=== PATIENT | female | born 1945 | race Caucasian/White ===

== ENCOUNTER → 2017-06-19 14:11 | Outpatient (CLI) | payer MEDICARE, SELFPAY ==
[2017-06-19 15:05] LABS: Hematocrit 37.7 % (37-47); Hemoglobin 12.3 g/dl (12.0-15.0); Mean Corp Hgb Conc 32.6 g/gl (32-36); Mean Corpuscular Hgb 30.6 pg (27.0-32.0); Mean Corpuscular Volume 93.8 fL (81-99); Mean Platelet Vol. 10.3 fl (6.2-12.0); Platelet Count 339 K/mm3 (150-450); RBC Distribution Width CV 13.4 % (11.6-14.6); RBC Distribution Width SD 44.2 fl (35.1-43.9); Red Blood Count 4.02 M/mm3 (4.2-5.4); White Blood Count 8.3 K/mm3 (4.4-11.0)
[2017-06-19 15:10] LABS: Scan Indicated on CBC? Y/N NO
[2017-06-19 15:29] LABS: Anion Gap 10 (5-15); BUN 30 mg/dL (7-18); BUN/Creat Ratio 35.3 RATIO (10-20); Calcium,Total 9.6 mg/dL (8.5-10.1); Chloride 104 mmol/L (98-107); Creatinine, Serum 0.85 mg/dL (0.55-1.02); EST Glomerular Filtration Rate 70 mL/min (>60); Est Glom Filt Rate - Afr Amer 84 mL/min (>60); Glucose 115 mg/dL (74-106); Potassium 4.1 mmol/L (3.5-5.1); Sodium Level 142 mmol/L (136-145)
== END ==
PROVIDERS: Family Provider Family Medicine; PCP Family Medicine; Visit Provider Internal Medicine Cardiovascular Disease
DX: I49.1 Atrial premature depolarization (principal); I49.3 Ventricular premature depolarization; R53.83 Other fatigue
CPT/HCPCS: 36415; 80048; 83735; 85027

== ENCOUNTER → 2017-06-27 13:44 | Outpatient (CLI) | payer MEDICARE, SELFPAY | PROVIDERS: Visit Provider Nurse Practitioner Family | DX: R00.1 Bradycardia, unspecified (principal); R42 Dizziness and giddiness | CPT/HCPCS: 93225; 93226 ==

== ENCOUNTER 2017-07-28 16:03 | Observation (INO) | payer MEDICARE, SELFPAY ==
[2017-07-28] VITALS (9 sets, daily range): BP systolic 114–132; BP diastolic 61–96; PULSE 72–98; RESP 15–18; TEMP 36.6–37.2; O2SAT 95–98; BMI 34.7; BMI 35.0; BMI 35.1
--- NOTE | 2017-07-28 16:52 | EKG12_ITS ---
Test Reason : WEAKNESS IRR HB Blood Pressure : / mmHG Vent. Rate : 069 BPM Atrial Rate : 069 BPM P-R Int : 188 ms QRS Dur : 088 ms QT Int : 366 ms P-R-T Axes : -11 001 020 degrees QTc Int : 392 ms Normal sinus rhythm Normal ECG Confirmed by JOE VILLA, SUNITHA ([id number]), editor at large DIGNA KATE ([id number]) on 08/01/2017 1:57:36 PM Referred By: ISAIAS Confirmed By:SUNITHA DIAZ MD
--- NOTE | 2017-07-28 16:54 | RAD_ITS ---
STUDY: X-RAY CHEST REASON FOR EXAM: Female, 72 years old. Short of breath and weakness TECHNIQUE: Single AP portable view of the chest. COMPARISON: 08/15/2013. FINDINGS: The lungs are clear and expanded. There is no demonstrated pleural abnormality. Normal size heart. Normal mediastinum and roderick. Normal visualized pulmonary arteries. There is atherosclerotic tortuosity of the aortic arch and descending thoracic aorta. Probable moderate hiatal hernia. Normal visualized thoracic spine. There is degenerative osteoarthritis of the bilateral shoulders. There is no demonstrated abnormality of the visualized soft tissue structures of the upper abdomen. RAD/Chest 1 View (Portable) IMPRESSION: No acute chest disease. Electronically Signed: Edy Apodaca MD at 17:15 EDT , Service support ,
--- NOTE | 2017-07-28 16:54 | ED.VISSUMM ---
- ER Visit Summary Date of Service: 07/28/17 Chief Complaint: Generalized weakness History of Present Illness: The patient is a 72 F presenting with generalized weakness. She states this started today. She states she has felt tired. Her occupational therapist was at her house today. They noted a blood pressure 104/54 and heart rate of 58. She denies chest pain or shortness of breath. She states she did have an episode of chest pain on Monday and went to [place] [facility]. She states they wanted to admit her to the hospital and she declined admission. She has had no chest pain today. She had a spinal fusion on July 07 at [facility] in [place]. During that admission she developed A. fib and pulmonary embolus. She was discharged after 11 days. She is on Xarelto. She is currently in home rehab. She denies any back pain or incontinence. She is on tramadol. She states she has oxycodone but she is not taking this any longer. Denies fever. Denies other complaints. Physical Examination: Vitals are stable. Patient is afebrile. Alert no acute distress. HEENT exam is unremarkable. Neck is supple. Lungs are clear and equal bilaterally. Heart is regular rate and rhythm. Abdomen is soft nontender nondistended. Back: incision clean, dry and intact Extremities are unremarkable. Skin is warm and dry. No focal neurologic deficit. Remainder of exam is unremarkable. Emergency Department Course and Treatment: EKG is sinus rhythm rate of 69 with no acute ischemic changes. Chest x-ray shows no acute process. CBC normal except for hemoglobin 10.3. Chemistries show glucose 119, BUN 19. Troponin is negative. Patient was observed in the ED for several hours. She continues to feel dizzy. With attempted ambulation she has an unsteady gait and states she feels wobbly. Will discuss with the hospitalist for observation. Disposition: Observation Impression: Generalized weakness, near syncope This note was generated with [employer] dictation software. It may contain incorrect words, spelling, and punctuation that were not noted in review of the chart prior to signing ED Disposition - Plan for ED Patient: Chief Complaint: Weakness Referrals: Mo Hood [Primary Care Provider] -
--- NOTE | 2017-07-28 16:57 | ED.DCSUM_ITS ---
- ER Visit Summary Date of Service: 07/28/17 Chief Complaint: Generalized weakness History of Present Illness: The patient is a 72 F presenting with generalized weakness. She states this started today. She states she has felt tired. Her occupational therapist was at her house today. They noted a blood pressure 104/ 54 and heart rate of 58. She denies chest pain or shortness of breath. She states she did have an episode of chest pain on Monday and went to [place] [facility]. She states they wanted to admit her to the hospital and she declined admission. She has had no chest pain today. She had a spinal fusion on July 07 at [facility] in [place]. During that admission she developed A. fib and pulmonary embolus. She was discharged after 11 days. She is on Xarelto. She is currently in home rehab. She denies any back pain or incontinence. She is on tramadol. She states she has oxycodone but she is not taking this any longer. Denies fever. Denies other complaints. Physical Examination: Vitals are stable. Patient is afebrile. Alert no acute distress. HEENT exam is unremarkable. Neck is supple. Lungs are clear and equal bilaterally. Heart is regular rate and rhythm. Abdomen is soft nontender nondistended. Back: incision clean, dry and intact Extremities are unremarkable. Skin is warm and dry. No focal neurologic deficit. Remainder of exam is unremarkable. Emergency Department Course and Treatment: EKG is sinus rhythm rate of 69 with no acute ischemic changes. Chest x-ray shows no acute process. CBC normal except for hemoglobin 10.3. Chemistries show glucose 119, BUN 19. Troponin is negative. Patient was observed in the ED for several hours. She continues to feel dizzy. With attempted ambulation she has an unsteady gait and states she feels wobbly. Will discuss with the hospitalist for observation. Disposition: Observation Impression: Generalized weakness, near syncope This note was generated with [employer] dictation software. It may contain incorrect words, spelling, and punctuation that were not noted in review of the chart prior to signing ED Disposition - Plan for ED Patient: Chief Complaint: Weakness Referrals: Mo Hood [Primary Care Provider] -
[2017-07-28 17:36] LABS: Anion Gap 7 (5-15); BUN 19 mg/dL (7-18); BUN/Creat Ratio 22.3 RATIO (10-20); Calcium,Total 8.8 mg/dL (8.5-10.1); Chloride 108 mmol/L (98-107); Creatinine, Serum 0.85 mg/dL (0.55-1.02); EST Glomerular Filtration Rate 69 mL/min (>60); Est Glom Filt Rate - Afr Amer 84 mL/min (>60); Estimated Creatinine Clearance 52.25 ml/min; Glucose 119 mg/dL (74-106); Potassium 3.7 mmol/L (3.5-5.1); Sodium Level 143 mmol/L (136-145)
[2017-07-28 17:47] LABS: Absolute Lymphocyte Count 1.53 X10^3/ul (0.83-4.51); Absolute Neutrophil Count 4.8 X10^3/uL (2.0-7.7); Basophil# 0.05 X10^3/uL; Basophil% 0.7 % (0-1); Eosinophil# 0.25 X10^3/uL; Eosinophils% 3.4 % (0-5); Hematocrit 32.7 % (37-47); Hemoglobin 10.3 g/dl (12.0-15.0); Lymphocyte # 1.53 X10^3/ul (4.0); Lymphocyte % 20.9 % (19-41); Mean Corp Hgb Conc 31.5 g/gl (32-36); Mean Corpuscular Hgb 30.2 pg (27.0-32.0); Mean Corpuscular Volume 95.9 fL (81-99); Mean Platelet Vol. 10.5 fl (6.2-12.0); Monocyte# 0.68 X10^3/uL; Monocyte% 9.3 % (0-10); Neutrophil % 65.6 % (47-70); Platelet Count 427 K/mm3 (150-450); RBC Distribution Width CV 13.9 % (11.6-14.6); RBC Distribution Width SD 45.7 fl (35.1-43.9); Red Blood Count 3.41 M/mm3 (4.2-5.4); White Blood Count 7.3 K/mm3 (4.4-11.0)
[2017-07-28 17:50] LABS: POSITIVE COUNT NO; POSITIVE DIFFERENTIAL NO; POSITIVE MORPHOLOGY NO
[2017-07-28 20:05] LABS: Allen Test POS; Base Excess 3 mmol/L (-2 to +2); Bicarbonate 26.1 mmol/L (22-26); Blood Gas Specimen Type ART; O2 Delivery Device Room Air; PO2 69 mmHG (75-100); SITE L Radial; SO2 95 % (95-99); Total Carbon Dioxide 27 mmol/L; pCO2 34.8 mmHg (35-45); pH 7.48 (7.35-7.45)
--- NOTE | 2017-07-28 21:11 | PCM.HP.STD ---
Problem List (1) Lumbar back pain Status: Chronic (2) Pulmonary embolism Status: Chronic Qualifiers: Pulmonary embolism type: other Chronicity: chronic (3) COPD (chronic obstructive pulmonary disease) Status: Chronic Qualifiers: COPD type: unspecified COPD Qualified Code(s): J44.9 - Chronic obstructive pulmonary disease, unspecified (4) Hypertension Status: Chronic Qualifiers: Hypertension type: essential hypertension Qualified Code(s): I10 - Essential (primary) hypertension (5) Hyperlipidemia Status: Chronic Qualifiers: Hyperlipidemia type: mixed hyperlipidemia Qualified Code(s): E78.2 - Mixed hyperlipidemia (6) Diabetes mellitus type II, controlled Status: Chronic Qualifiers: Diabetes mellitus oil heaterman insulin use: without nursing home use Diabetes mellitus complication status: with unspecified complications Qualified Code(s): E11.8 - Type 2 diabetes mellitus with unspecified complications (7) Obesity (BMI 30.0-34.9) Status: Chronic History of Present Illness Date of Admission: 07/28/17 Chief Complaint: Near Syncopal Events, Chest pain The patient is a 72 y/o F w/ PMHx: Lumbar back pain s/p recent intervention, Chronic COPD, HTN, HLD, Diabetes mellitus type II, History of recent post-operative PE, Hypothyroidism, PAF who presents to the [facility] ED on 07/28/17 with history of nearly ~ 1 year of intermittent episodes of near syncope sensation with increased generalized weakness, dizziness, lightheadedness without dyspnea or chest pain during these episodes which have been becoming more frequent with evaluation per her [facility] [employer], Dr. Gómez w/ concern for symptomatic bradycardia with HM performed which did not correlate and HR lowest 48. She had recent spinal fusion at [place] in June and secondary to Afib RVR episode with PE development was transferred to [facility]. She has now been on anticoagulation x ~14 days. She was discharged from [facility] on 07/18/17. Following discharge she had episode this past Monday of sharp L sided underneath her L breast chest pain, radiating toward her back with recurrence of her near syncopal symptoms. She was evaluated at [place] ED at that time and declined admission. She presents today with recurrent near syncopal symptoms. In the ED work-up including AF, HR 70s, BP 114/69, RR 17, 98% on RA, CBC w/ WBC 7.3, Hgb 10.2, Plts 427 without shift, BMP w/ Chl 108, BUN/Cr 19/0.85, glucose 119, trop < 0.02, EKG w/ SR without acute evidence of ischemia. Past Medical History Past Medical History (Chronic Problems): Chronic Problems (Last Updated 06/21/17 @ 11:29 by Jessica Armstrong) Lumbar back pain (Chronic) Obesity (BMI 30.0-34.9) (Chronic) Pulmonary embolism (Chronic) COPD (chronic obstructive pulmonary disease) (Chronic) Hypertension (Chronic) Hyperlipidemia (Chronic) Diabetes mellitus type II, controlled (Chronic) History of pulmonary embolism (Chronic) Allergies nitrofurantoin macrocrystalline [From Macrodantin] Allergy (Verified 07/28/17 16:44) Hives rosuvastatin [From Crestor] Adverse Reaction (Severe, Verified 07/28/17 16:44) Muscle weakness colesevelam [From WelChol] Adverse Reaction (Intermediate, Verified 07/28/17 16:44) nausea nitrofurantoin [From Furadantin] Adverse Reaction (Intermediate, Verified 07/28/17 16:44) Unknown Home Medications: Ambulatory Orders Medication Instructions Recorded Albuterol Sulfate [Proventil Hfa] 2 puff IH Q6H PRN PRN 06/18/13 Fluticasone 110 Mcg [Flovent (SP)] 2 puff INHALATION BID 06/18/13 Levothyroxine [Synthroid] 125 mcg PO DAILY 06/18/13 Tramadol HCl [Tramadol HCl] 50 mg PO Q6H PRN PRN 06/18/13 aspirin 325 mg tablet 325 mg PO DAILY tab 06/19/17 glimepiride 2 mg tablet 2 mg PO QAM 06/19/17 omeprazole 20 mg capsule,delayed 20 mg PO QDAY 06/19/17 release oxybutynin chloride ER 10 mg 10 mg PO QDAY 06/19/17 tablet,extended release 24 hr sitagliptin 100 mg tablet 100 mg PO QDAY 06/19/17 Acetaminophen [Acetaminophen 8 1,300 mg PO Q6H PRN PRN 07/28/17 Hour] Calcium Carbonate [Calcium] 600 mg PO DAILY 07/28/17 Cholecalciferol (VIT D3) [Vitamin 5,000 unit PO DAILY 07/28/17 D] Dicyclomine HCl 20 mg PO DAILY PRN PRN 07/28/17 Lisinopril/Hydrochlorothiazide 1 each PO DAILY 07/28/17 [Zestoretic 20-12.5 mg Tablet] Oxycodone [Oxyir] 5 mg PO Q6H PRN PRN 07/28/17 Rivaroxaban [Xarelto] 15 mg PO BID 07/28/17 Sennosides/Docusate Sodium 1 each PO DAILY 07/28/17 [Sennosides-Docusate Sodium Tab] Surgical History: - - Cholecystectomy, Lumbar Back Fusion Psychiatric History: No pertinent psych hx INSIGHTS STRATEGIST History: No pertinent INSIGHTS STRATEGIST history Lives: Spouse/ Significant Other Smoking Status: Never smoker Tobacco Use: Non-smoker Alcohol: None Drugs: None - *Family History Maternal History Items: Diabetes, - - Mother w/ history of DM, AAA. Paternal History Items: - - Father w/ history of CAD, DM, MA/CAD, Dementia. Sibling History Items: - - Brother w/ history of multiple sclerosis. Review of Systems Constitutional: Reports: Malaise, Weakness, Fatigue. Denies: Chills, Fever, Weight Change HEENT: Denies: Head Aches, Sinus Congestion, Sinus Drainage Cardiovascular: Reports: Chest Pain, Syncope. Denies: Palpitations Respiratory: Denies: Cough, Shortness of breath at rest, Shortness of breath upon exertion, Sputum production Gastrointestinal: Denies: Abdominal Pain, Nausea, Vomiting Genitourinary: Denies: Dysuria Musculoskeletal: Reports: Back Pain. Denies: Joint Pain, Joint Tenderness Skin: Denies: Rash, Wounds Neurological: Denies: Numbness, Tingling, Focal weakness Psychiatric: Denies: Anxiety, Depression, Homicidal Ideations, Suicidal Ideations Hematologic/ Lymphatic: Reports: Anemia. Denies: Easy Bruising, Easy Bleeding VTE Information - Inpt Only VTE Present on Admission: No VTE Mechan Device Prophylaxis: SCD's VTE Pharm Prophylaxis ordered?: No Reason prophylaxis not ordered:: Treatment Not Indicated Subjective: Seated upright in the ED bed, NAD, fatigued appearing. Objective: Physical Examination: General: awake, alert, oriented x 3 and cooperative, seated upright in the ED bed in no apparent distress. Skin: normal color, turgor, no icterus, cyanosis, healing lumbar midline incision, expected TTP. HEENT: AT/NC, EOMI, PERRLA, mildly dry MM, no carotid bruits or JVD noted. Lungs: Diminished BS bases, mild effort, no rales, ronchi or wheezing. Heart: Regular rate and rhythm; no gallop, rub audible. Abdomen: soft, obese, NTTP, ND, normal BS, no HSM. Extremities: no cyanosis, clubbing, or edema. Neurological: patient awake, alert, oriented x 3; cognitive function intact; pupils equally reactive to light and accomodation; cranial nerves II-XII grossly normal, moving all 4 extremities, no focal deficits, strength moderately to severely globally decreased secondary to acute presentation and recent operative intervention. Psychiatric: affect appears fatigued, flat, no acute evidence of depressive or anxiety feelings. - Physical Exam Vital Signs Temp Pulse Resp BP Pulse Ox 98.9 F 76 15 116/62 95 07/28/17 16:04 07/28/17 20:13 07/28/17 20:13 07/28/17 20:13 07/28/17 20:13 Oxygen Delivery Method Room Air Weight: 209 lb Body Mass Index (BMI) 34.7 Laboratory Tests Past 24 Hrs 07/28/17 07/28/17 07/28/17 16:42 16:42 19:59 WBC 7.3 RBC 3.41 L Hgb 10.3 L Hct 32.7 L MCV 95.9 MCH 30.2 MCHC 31.5 L RDW 13.9 RDW Differential 45.7 H Plt Count 427 MPV 10.5 Immature Gran % (Auto) 0.100 Neut % (Auto) 65.6 Lymph % (Auto) 20.9 Hart % (Auto) 9.3 Eos % (Auto) 3.4 Baso % (Auto) 0.7 Absolute Neuts (auto) 4.8 Absolute Lymphs (auto) 1.53 Total Counted Not Reportable Specimen Type ART Sample Site L Radial pH 7.48 H Bicarbonate Actual 26.1 H POC Total CO2 27 Base Excess 3 H O2 Saturation 95 ABG pCO2 34.8 L ABG pO2 69 L Mo Test POS O2 Delivery Device Room Air Blood Gas Notified Whom ED Sodium 143 Potassium 3.7 Chloride 108 H Carbon Dioxide 28.0 Anion Gap 7 BUN 19 H Creatinine 0.85 Estim Creat Clear Calc 52.25 Est GFR (MDRD) Af Amer 84 Est GFR (MDRD) Non-Af 69 BUN/Creatinine Ratio 22.3 H Glucose 119 H Calcium 8.8 Troponin I < 0.02 Assessment/Plan The patient is a 72 y/o F w/ PMHx: Lumbar back pain s/p recent intervention, Chronic COPD, HTN, HLD, Diabetes mellitus type II, History of recent post-operative PE, Hypothyroidism, PAF who presents to the [facility] ED on 07/28/17 with history of nearly ~ 1 year of intermittent episodes of near syncope sensation with increased generalized weakness, dizziness, lightheadedness without dyspnea or chest pain during these episodes which have been becoming more frequent with concurrently episode this past Monday of sharp L sided underneath her L breast chest pain, radiating toward her back. (1) Chest Pain and Near Syncopal Event: Unclear etiololgy. EKG in ED w/ sinus rhythm without evidence of acute ischemia, CXR w/ no acute cardiopulmonary findings, initial trop normal. Will admit to PCU, place on a monitored bed to assure no acute myocardial infarction with serial cardiac enzymes and EKGs. Will maintain on fall precautions, obtain admission orthostatic and AM orthostatic VS and increase hydration if appropriate. Will obtain ECHO as last noted 09/12/16. Last stress testing 09/02/16 thus given concurrent chest pain will pursue nuclear stress testing as 2 weeks out on xarelto regimen from PE post-operatively. Carotid US also ordered, pending. PT/OT consultation to ascertain stability and discharge needs. Mag, TSH, FLP in AM. ASA, NG, morphine. (2) Hypothyroidism: Continue home synthroid regimen, TSH pending. (3) Hypertension: Continue home regimen including lisinopril, hydrochlorothiazide, PRN hydralazine. (4) Diabetes mellitus type II: Hold oral home regimen, ADA diet, accu checks w/ ISS. (5) Recent post-operative pulmonary embolism: Continue Xarelto regimen. (6) Recent Lumbar Spinal Fusion: s/p recent spinal lumbar fusion [facility], progressing well, PT, OT consultations while inpatient. (7) Chronic COPD: ATC duonebs, PRN albuterol, HOB, IS parameters. (8) PAF: Recent episode at [facility] post-operatively, EKG w/ SR upon current presentation, maintained on xarelto. (9) GERD: Famotidine. (10) DVT prophylaxis: SCDs, xarelto. Code Visit OBSV E&M: 26674 Initial observation care L3
--- NOTE | 2017-07-28 21:24 | HP.PCM_ITS ---
Problem List (1) Lumbar back pain Status: Chronic (2) Pulmonary embolism Status: Chronic Qualifiers: Pulmonary embolism type: other Chronicity: chronic (3) COPD (chronic obstructive pulmonary disease) Status: Chronic Qualifiers: COPD type: unspecified COPD Qualified Code(s): J44.9 - Chronic obstructive pulmonary disease, unspecified (4) Hypertension Status: Chronic Qualifiers: Hypertension type: essential hypertension Qualified Code(s): I10 - Essential (primary) hypertension (5) Hyperlipidemia Status: Chronic Qualifiers: Hyperlipidemia type: mixed hyperlipidemia Qualified Code(s): E78.2 - Mixed hyperlipidemia (6) Diabetes mellitus type II, controlled Status: Chronic Qualifiers: Diabetes mellitus commercial illustrator insulin use: without half-way use Diabetes mellitus complication status: with unspecified complications Qualified Code(s) : E11.8 - Type 2 diabetes mellitus with unspecified complications (7) Obesity (BMI 30.0-34.9) Status: Chronic History of Present Illness Date of Admission: 07/28/17 Chief Complaint: Near Syncopal Events, Chest pain The patient is a 72 y/o F w/ PMHx: Lumbar back pain s/p recent intervention, Chronic COPD, HTN, HLD, Diabetes mellitus type II, History of recent post- operative PE, Hypothyroidism, PAF who presents to the [facility] ED on 07/28/17 with history of nearly ~ 1 year of intermittent episodes of near syncope sensation with increased generalized weakness, dizziness, lightheadedness without dyspnea or chest pain during these episodes which have been becoming more frequent with evaluation per her Promotional Representative, Dr. Gómez w/ concern for symptomatic bradycardia with HM performed which did not correlate and HR lowest 48. She had recent spinal fusion at [facility] in June and secondary to Afib RVR episode with PE development was transferred to [facility]. She has now been on anticoagulation x ~14 days. She was discharged from [facility] on 07/18/17. Following discharge she had episode this past Monday of sharp L sided underneath her L breast chest pain, radiating toward her back with recurrence of her near syncopal symptoms. She was evaluated at [place] ED at that time and declined admission. She presents today with recurrent near syncopal symptoms. In the ED work-up including AF, HR 70s, BP 114/69, RR 17, 98% on RA, CBC w/ WBC 7.3, Hgb 10.2, Plts 427 without shift, BMP w/ Chl 108, BUN/Cr 19/0.85, glucose 119, trop < 0.02, EKG w/ SR without acute evidence of ischemia. Past Medical History Past Medical History (Chronic Problems): Chronic Problems (Last Updated 06/21/17 @ 11:29 by Jessica Armstrong) Lumbar back pain (Chronic) Obesity (BMI 30.0-34.9) (Chronic) Pulmonary embolism (Chronic) COPD (chronic obstructive pulmonary disease) (Chronic) Hypertension (Chronic) Hyperlipidemia (Chronic) Diabetes mellitus type II, controlled (Chronic) History of pulmonary embolism (Chronic) Allergies nitrofurantoin macrocrystalline [From Macrodantin] Allergy (Verified 07/28/17 16 :44) Hives rosuvastatin [From Crestor] Adverse Reaction (Severe, Verified 07/28/17 16:44) Muscle weakness colesevelam [From WelChol] Adverse Reaction (Intermediate, Verified 07/28/17 16: 44) nausea nitrofurantoin [From Furadantin] Adverse Reaction (Intermediate, Verified 16:44) Unknown Home Medications: Ambulatory Orders Medication Instructions Recorded Albuterol Sulfate [Proventil Hfa] 2 puff IH Q6H PRN PRN 06/18/13 Fluticasone 110 Mcg [Flovent (SP)] 2 puff INHALATION BID 06/18/13 Levothyroxine [Synthroid] 125 mcg PO DAILY 06/18/13 Tramadol HCl [Tramadol HCl] 50 mg PO Q6H PRN PRN 06/18/13 aspirin 325 mg tablet 325 mg PO DAILY tab 06/19/17 glimepiride 2 mg tablet 2 mg PO QAM 06/19/17 omeprazole 20 mg capsule,delayed 20 mg PO QDAY 06/19/17 release oxybutynin chloride ER 10 mg 10 mg PO QDAY 06/19/17 tablet,extended release 24 hr sitagliptin 100 mg tablet 100 mg PO QDAY 06/19/17 Acetaminophen [Acetaminophen 8 1,300 mg PO Q6H PRN PRN 07/28/17 Hour] Calcium Carbonate [Calcium] 600 mg PO DAILY 07/28/17 Cholecalciferol (VIT D3) [Vitamin 5,000 unit PO DAILY 07/28/17 D] Dicyclomine HCl 20 mg PO DAILY PRN PRN 07/28/17 Lisinopril/Hydrochlorothiazide 1 each PO DAILY 07/28/17 [Zestoretic 20-12.5 mg Tablet] Oxycodone [Oxyir] 5 mg PO Q6H PRN PRN 07/28/17 Rivaroxaban [Xarelto] 15 mg PO BID 07/28/17 Sennosides/Docusate Sodium 1 each PO DAILY 07/28/17 [Sennosides-Docusate Sodium Tab] Surgical History: - - Cholecystectomy, Lumbar Back Fusion Psychiatric History: No pertinent psych hx 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 Paternal History Items: - - Father w/ history of CAD, DM, NC/CAD, Dementia. Sibling History Items: - - Brother w/ history of multiple sclerosis. Review of Systems Constitutional: Reports: Malaise, Weakness, Fatigue. Denies: Chills, Fever, Weight Change HEENT: Denies: Head Aches, Sinus Congestion, Sinus Drainage Cardiovascular: Reports: Chest Pain, Syncope. Denies: Palpitations Respiratory: Denies: Cough, Shortness of breath at rest, Shortness of breath upon exertion, Sputum production Gastrointestinal: Denies: Abdominal Pain, Nausea, Vomiting Genitourinary: Denies: Dysuria Musculoskeletal: Reports: Back Pain. Denies: Joint Pain, Joint Tenderness Skin: Denies: Rash, Wounds Neurological: Denies: Numbness, Tingling, Focal weakness Psychiatric: Denies: Anxiety, Depression, Homicidal Ideations, Suicidal Ideations Hematologic/ Lymphatic: Reports: Anemia. Denies: Easy Bruising, Easy Bleeding VTE Information - Inpt Only VTE Present on Admission: No VTE Mechan Device Prophylaxis: SCD's VTE Pharm Prophylaxis ordered?: No Reason prophylaxis not ordered:: Treatment Not Indicated Subjective: Seated upright in the ED bed, NAD, fatigued appearing. Objective: Physical Examination: General: awake, alert, oriented x 3 and cooperative, seated upright in the ED bed in no apparent distress. Skin: normal color, turgor, no icterus, cyanosis, healing lumbar midline incision, expected TTP. HEENT: AT/NC, EOMI, PERRLA, mildly dry MM, no carotid bruits or JVD noted. Lungs: Diminished BS bases, mild effort, no rales, ronchi or wheezing. Heart: Regular rate and rhythm; no gallop, rub audible. Abdomen: soft, obese, NTTP, ND, normal BS, no HSM. Extremities: no cyanosis, clubbing, or edema. Neurological: patient awake, alert, oriented x 3; cognitive function intact; pupils equally reactive to light and accomodation; cranial nerves II-XII grossly normal, moving all 4 extremities, no focal deficits, strength moderately to severely globally decreased secondary to acute presentation and recent operative intervention. Psychiatric: affect appears fatigued, flat, no acute evidence of depressive or anxiety feelings. - Physical Exam Vital Signs Temp Pulse Resp BP Pulse Ox 98.9 F 76 15 116/62 95 07/28/17 16:04 07/28/17 20:13 07/28/17 20:13 07/28/17 20:13 07/28/17 20:13 Oxygen Delivery Method Room Air Weight: 209 lb Body Mass Index (BMI) 34.7 Laboratory Tests Past 24 Hrs 07/28/17 07/28/17 07/28/17 16:42 16:42 19:59 WBC 7.3 RBC 3.41 L Hgb 10.3 L Hct 32.7 L MCV 95.9 MCH 30.2 MCHC 31.5 L RDW 13.9 RDW Differential 45.7 H Plt Count 427 MPV 10.5 Immature Gran % (Auto) 0.100 Neut % (Auto) 65.6 Lymph % (Auto) 20.9 Bacon % (Auto) 9.3 Eos % (Auto) 3.4 Baso % (Auto) 0.7 Absolute Neuts (auto) 4.8 Absolute Lymphs (auto) 1.53 Total Counted Not Reportable Specimen Type ART Sample Site L Radial pH 7.48 H Bicarbonate Actual 26.1 H POC Total CO2 27 Base Excess 3 H O2 Saturation 95 ABG pCO2 34.8 L ABG pO2 69 L Mo Test POS O2 Delivery Device Room Air Blood Gas Notified Whom ED Sodium 143 Potassium 3.7 Chloride 108 H Carbon Dioxide 28.0 Anion Gap 7 BUN 19 H Creatinine 0.85 Estim Creat Clear Calc 52.25 Est GFR (MDRD) Af Amer 84 Est GFR (MDRD) Non-Af 69 BUN/Creatinine Ratio 22.3 H Glucose 119 H Calcium 8.8 Troponin I < 0.02 Assessment/Plan The patient is a 72 y/o F w/ PMHx: Lumbar back pain s/p recent intervention, Chronic COPD, HTN, HLD, Diabetes mellitus type II, History of recent post- operative PE, Hypothyroidism, PAF who presents to the [facility] ED on 07/28/17 with history of nearly ~ 1 year of intermittent episodes of near syncope sensation with increased generalized weakness, dizziness, lightheadedness without dyspnea or chest pain during these episodes which have been becoming more frequent with concurrently episode this past Monday of sharp L sided underneath her L breast chest pain, radiating toward her back. (1) Chest Pain and Near Syncopal Event: Unclear etiololgy. EKG in ED w/ sinus rhythm without evidence of acute ischemia, CXR w/ no acute cardiopulmonary findings, initial trop normal. Will admit to PCU, place on a monitored bed to assure no acute myocardial infarction with serial cardiac enzymes and EKGs. Will maintain on fall precautions, obtain admission orthostatic and AM orthostatic VS and increase hydration if appropriate. Will obtain ECHO as last noted 09/12/16. Last stress testing 09/02/16 thus given concurrent chest pain will pursue nuclear stress testing as 2 weeks out on xarelto regimen from PE post-operatively. Carotid US also ordered, pending. PT/OT consultation to ascertain stability and discharge needs. Mag, TSH, FLP in AM. ASA, NG, morphine. (2) Hypothyroidism: Continue home synthroid regimen, TSH pending. (3) Hypertension: Continue home regimen including lisinopril, hydrochlorothiazide, PRN hydralazine. (4) Diabetes mellitus type II: Hold oral home regimen, ADA diet, accu checks w/ ISS. (5) Recent post-operative pulmonary embolism: Continue Xarelto regimen. (6) Recent Lumbar Spinal Fusion: s/p recent spinal lumbar fusion [facility], progressing well, PT, OT consultations while inpatient. (7) Chronic COPD: ATC duonebs, PRN albuterol, HOB, IS parameters. (8) PAF: Recent episode at [facility] post-operatively, EKG w/ SR upon current presentation, maintained on xarelto. (9) GERD: Famotidine. (10) DVT prophylaxis: SCDs, xarelto. Code Visit OBSV E&M: 99851 Initial observation care L3
[2017-07-28 21:31] LABS: Mucous, Urine 0 SEEN /hpf (<or=2+); Red Blood Cells-Urine 0 SEEN /hpf (0-5)
[2017-07-28 21:42] LABS: Color, Urine Yellow (Yellow); Glucose, Dipstick Normal (Normal); Ketone-Dipstick Negative (Negative); Leukocyte Esterase-Dipstick 25 /ul (Negative); Nitrite-Dipstick Negative (Negative); Occult Blood-Urine Negative /ul (Negative); Protein-Dipstick Negative (Negative); Urine Bilirubin Dipstick Negative (Negative); Urine Clarity Clear (Clear); Urine Urobilinogen Normal (Normal)
[2017-07-28 21:52] LABS: Bacteria 1+ /hpf (None Seen); Squamous Epithelial Cells - UA 5-10 SEEN /hpf (5-10); White Blood Cells 0-5 SEEN /hpf (0-5)
[2017-07-28 22:48] LABS: Magnesium 2.2 mg/dL (1.6-2.6); T4 Free Direct 1.27 ng/dL (0.76-1.46); Thyroid Stim Hormone (TSH) 1.55 uIU/mL (0.358-3.74)
[2017-07-28 23:00] LABS: Bedside Glucose 93 mg/dL (70-110)
[2017-07-28] MEDS: Ipratropium/Albuterol Sulfate 3 ML AMPUL.NEB INHALATION (23:33)
[2017-07-28] MEDS: Acetaminophen 325 MG Tablet 650 MG PO (23:38)
[2017-07-28] MEDS: Famotidine 20 MG Tablet PO (23:38)
[2017-07-28] MEDS: Rivaroxaban 15 MG Tablet PO (23:38)
[2017-07-28] MEDS: 0.9% Normal Saline 1,000 ML 100 ML IV (23:38)
[2017-07-29] VITALS (9 sets, daily range): BP systolic 108–119; BP diastolic 48–68; PULSE 63–88; RESP 16–21; TEMP 36.6–36.8; O2SAT 93–98
[2017-07-29 03:39] LABS: Hematocrit 29.3 % (37-47); Hemoglobin 9.5 g/dl (12.0-15.0); Mean Corp Hgb Conc 32.4 g/gl (32-36); Mean Corpuscular Hgb 30.9 pg (27.0-32.0); Mean Corpuscular Volume 95.4 fL (81-99); Mean Platelet Vol. 9.9 fl (6.2-12.0); Platelet Count 349 K/mm3 (150-450); RBC Distribution Width CV 13.6 % (11.6-14.6); RBC Distribution Width SD 44.9 fl (35.1-43.9); Red Blood Count 3.07 M/mm3 (4.2-5.4); White Blood Count 7.6 K/mm3 (4.4-11.0)
[2017-07-29 03:44] LABS: Scan Indicated on CBC? Y/N NO
[2017-07-29 03:57] LABS: Anion Gap 8 (5-15); BUN 16 mg/dL (7-18); BUN/Creat Ratio 24.8 RATIO (10-20); Calcium,Total 8.3 mg/dL (8.5-10.1); Chloride 109 mmol/L (98-107); Cholesterol 176 mg/dL (200); Creatinine, Serum 0.64 mg/dL (0.55-1.02); EST Glomerular Filtration Rate 95 mL/min (>60); Est Glom Filt Rate - Afr Amer 116 mL/min (>60); Estimated Creatinine Clearance 44.41 ml/min; Glucose 140 mg/dL (74-106); High Density Lipoprotein 40 mg/dL; Potassium 3.4 mmol/L (3.5-5.1); Sodium Level 144 mmol/L (136-145); Triglycerides 254 mg/dL; Very Low Density Lipoprotein 51 mg/dL (5-40)
[2017-07-29] MEDS: traMADol 50 MG Tablet PO (04:16)
--- NOTE | 2017-07-29 05:55 | EKG12_ITS ---
Test Reason : AM EKG Blood Pressure : / mmHG Vent. Rate : 060 BPM Atrial Rate : 060 BPM P-R Int : 198 ms QRS Dur : 086 ms QT Int : 398 ms P-R-T Axes : 010 000 006 degrees QTc Int : 398 ms Normal sinus rhythm Normal ECG When compared with ECG of 28-JUL-2017 16:16, MANUAL COMPARISON REQUIRED, DATA IS UNCONFIRMED Confirmed by ESTER VELÁSQUEZ ([id number]), editorial director DIGNA KATE ([id number]) on 08/03/2017 3:01:19 PM Referred By: DR GALLEGOS Confirmed By:ESTER VELÁSQUEZ
--- NOTE | 2017-07-29 05:55 | ECHOD_ITS ---
Procedure This was a 2D Doppler, Color Flow transthoracic echocardiogram. The study was technically difficult. Exam performed portable in patient room. Left Ventricle Normal LV size. Left ventricular systolic function is normal. The estimated ejection fraction is 55 %. Transmitral and pulmonary venous doppler flow suggestive of impaired relaxation of left ventricle. No regional wall motion abnormalities noted. Right Ventricle Normal RV size. Normal systolic function. Atria Normal left atrium. Normal right atrium. Mitral Valve Normal mitral valve. Tricuspid Valve Normal tricuspid valve. Mild tricuspid valve insufficiency. Pulmonary artery systolic pressure is 26 mmHg. Aortic Valve Normal aortic valve. Pulmonic Valve Normal pulmonic valve. Great Vessels Normal aortic root. The pulmonary artery is normal size. Normal inferior vena cava. Pericardium/Pleural No pericardial effusion. MMode/2D Measurements & Calculations LVIDd: 4.3 cm IVSd: 0.96 cm Ao root diam: 3.6 cm LVIDs: 2.9 cm LVPWd: 0.88 cm LA dimension: 3.7 cm RVDd: 3.2 cm FS: 32.5 % LAV(MOD-bp): 50.4 ml EDV(MOD-sp4): 87.0 ml EDV(MOD-sp2): 81.9 ml LAV(MOD-bp) Indexed: 25.0 ml/m2 ESV(MOD-sp4): 40.3 ml EF(MOD-sp2): 55.9 % LAV(MOD-sp2): 44.9 ml EF(MOD-sp4): 53.6 % LAV(MOD-sp4): 51.7 ml SV(MOD-sp4): 46.6 ml SV(MOD-sp2): 45.8 ml LA A4 area: 18.4 cm2 RA A4 area: 16.9 cm2 Doppler Measurements & Calculations MV E max vadim: 69.9 cm/sec Ao V2 max: 168.9 cm/sec LV V1 max: 101.5 cm/sec MV A max vadim: 75.6 cm/sec Ao max P.4 mmHg LV V1 max P.1 mmHg MV E/A: 0.93 TR max vadim: 241.1 cm/sec TR max P.2 mmHg Interpretation Summary Normal LV size. Left ventricular systolic function is normal. The estimated ejection fraction is 55 %. Pulmonary artery systolic pressure is 26 mmHg. Transmitral and pulmonary venous doppler flow suggestive of impaired relaxation of left ventricle Compared to prior study, there is no significant change. Ordering Physician: Griselda Elizabeth Heferkatherine Physician: Abram Elliott
[2017-07-29] MEDS: Levothyroxine 125 MCG Tablet PO (05:59)
[2017-07-29] MEDS: Lisinopril 20 MG Tablet PO (05:59)
[2017-07-29] MEDS: Ipratropium/Albuterol Sulfate 3 ML AMPUL.NEB INHALATION (07:05)
[2017-07-29 07:06] LABS: Bedside Glucose 129 mg/dL (70-110)
[2017-07-29] MEDS: 0.9% Normal Saline 1,000 ML 100 ML IV (10:22)
[2017-07-29] MEDS: Tolterodine Tartrate 2 MG CAP.SA PO (10:22)
[2017-07-29] MEDS: HYDROCHLOROTHIAZIDE 12.5 MG CAPSULE PO (10:22)
[2017-07-29] MEDS: Aspirin E.C. 81 MG Tablet PO (10:22)
[2017-07-29] MEDS: Famotidine 20 MG Tablet PO (10:23)
--- NOTE | 2017-07-29 11:29 | STRESSREP ---
Stress Test Report Pharmacologic myocardial perfusion stress test. 72-year-old lady with a history of chest pain. Stress protocol: Resting EKG demonstrates normal sinus rhythm with a rate of 68 bpm normal intervals are noted. Resting blood pressure is 120/60 mmHg. 0.4 mg of regadenoson was infused per usual protocol followed by rapid intravenous saline flush injection continuous EKG monitoring was performed. The maximum heart rate attained was 97 bpm which was 66% of maximum predicted heart rate the maximum workload attained was 1 metabolic equivalent. The resting blood pressure was 120/60 with a final blood pressure 122/54 mmHg. Myocardial perfusion protocol. 13.3 mCi of technetium 99m sestamibi was injected at rest. 0.4 mg of regadenoson was infused per usual protocol. Peak infusion 40.0 mCi of technetium 99m sestamibi was injected stress images were obtained stress and rest images were reconstructed and compared in the short axis vertical long and horizontal long axis. Gated images were also obtained. Perfusion SPECT analysis: Review of the stress images demonstrate normal uptake of tracer noted in all areas of the myocardium. The resting images similarly demonstrate normal uptake of tracer noted in all areas of the myocardium. No areas of reversibility are noted to suggest ischemia and no previous infarct is noted. Gated SPECT analysis: The gated ejection fraction is 62%. Conclusion: Normal pharmacologic myocardial perfusion stress test. Preserved ejection fraction.
[2017-07-29 11:36] LABS: Bedside Glucose 133 mg/dL (70-110)
--- NOTE | 2017-07-29 12:29 | PCM.DC ---
- Discharge Diagnoses Current Active Problems: Current Active and Chronic Problems (Last Updated 06/21/17 @ 11:29 by Jessica Armstrong) Lumbar back pain (Chronic) Obesity (BMI 30.0-34.9) (Chronic) You will use the following diet at home:: Calorie/Carbohydrate Controlled (specify 1200, 1400, etc) - 1800 Your food should be the consistency of: Regular Discharge Activity: Return to Normal Activity, May not drive while taking narcotic pain medications. Allergies/Adverse Reactions: Allergies nitrofurantoin macrocrystalline [From Macrodantin] Allergy (Verified 07/28/17 16:44) Hives rosuvastatin [From Crestor] Adverse Reaction (Severe, Verified 07/28/17 16:44) Muscle weakness colesevelam [From WelChol] Adverse Reaction (Intermediate, Verified 07/28/17 16:44) nausea nitrofurantoin [From Furadantin] Adverse Reaction (Intermediate, Verified 07/28/17 16:44) Unknown Medications to take at Discharge Albuterol Sulfate [Proventil Hfa] 2 puff IH Q6H PRN PRN 06/18/13 Fluticasone 110 Mcg [Flovent 110 Mcg] 2 puff INHALATION BID 06/18/13 Levothyroxine [Synthroid] 125 mcg PO DAILY 06/18/13 Tramadol HCl 50 mg PO Q6H PRN PRN 06/18/13 aspirin 325 mg tablet 325 mg PO DAILY tab 06/19/17 glimepiride 2 mg tablet 2 mg PO QAM 06/19/17 omeprazole 20 mg capsule,delayed release 20 mg PO QDAY 06/19/17 oxybutynin chloride ER 10 mg tablet,extended release 24 hr 10 mg PO QDAY 06/19/17 sitagliptin 100 mg tablet 100 mg PO QHS 06/19/17 Acetaminophen [Acetaminophen 8 Hour] 1,300 mg PO Q6H PRN PRN 07/28/17 Calcium Carbonate [Calcium] 600 mg PO DAILY 07/28/17 Cholecalciferol (VIT D3) [Vitamin D3] 5,000 unit PO DAILY 07/28/17 Dicyclomine HCl 20 mg PO DAILY PRN PRN 07/28/17 Oxycodone [Oxyir] 5 mg PO Q6H PRN PRN 07/28/17 Rivaroxaban [Xarelto] 15 mg PO BID 07/28/17 Sennosides/Docusate Sodium [Sennosides-Docusate Sodium Tab] 1 each PO DAILY 07/28/17 Primary Care Physician: Mo Hood [Primary Care Provider] - Please follow up with your Primary Care Physician in: in 5-7 days Proposed Discharge Date: 07/29/17
[2017-07-29] MEDS: Rivaroxaban 15 MG Tablet PO (12:34)
--- NOTE | 2017-07-29 12:39 | DCINST_ITS ---
- Discharge Diagnoses Current Active Problems: Current Active and Chronic Problems (Last Updated 06/21/17 @ 11:29 by Jessica Armstrong) Lumbar back pain (Chronic) Obesity (BMI 30.0-34.9) (Chronic) You will use the following diet at home:: Calorie/Carbohydrate Controlled ( specify 1200, 1400, etc) - 1800 Your food should be the consistency of: Regular Discharge Activity: Return to Normal Activity, May not drive while taking narcotic pain medications. Allergies/Adverse Reactions: Allergies nitrofurantoin macrocrystalline [From Macrodantin] Allergy (Verified 07/28/17 16 :44) Hives rosuvastatin [From Crestor] Adverse Reaction (Severe, Verified 07/28/17 16:44) Muscle weakness colesevelam [From WelChol] Adverse Reaction (Intermediate, Verified 07/28/17 16: 44) nausea nitrofurantoin [From Furadantin] Adverse Reaction (Intermediate, Verified 16:44) Unknown Medications to take at Discharge Albuterol Sulfate [Proventil Hfa] 2 puff IH Q6H PRN PRN 06/18/13 Fluticasone 110 Mcg [Flovent 110 Mcg] 2 puff INHALATION BID 06/18/13 Levothyroxine [Synthroid] 125 mcg PO DAILY 06/18/13 Tramadol HCl 50 mg PO Q6H PRN PRN 06/18/13 aspirin 325 mg tablet 325 mg PO DAILY tab 06/19/17 glimepiride 2 mg tablet 2 mg PO QAM 06/19/17 omeprazole 20 mg capsule,delayed release 20 mg PO QDAY 06/19/17 oxybutynin chloride ER 10 mg tablet,extended release 24 hr 10 mg PO QDAY sitagliptin 100 mg tablet 100 mg PO QHS 06/19/17 Acetaminophen [Acetaminophen 8 Hour] 1,300 mg PO Q6H PRN PRN 07/28/17 Calcium Carbonate [Calcium] 600 mg PO DAILY 07/28/17 Cholecalciferol (VIT D3) [Vitamin D3] 5,000 unit PO DAILY 07/28/17 Dicyclomine HCl 20 mg PO DAILY PRN PRN 07/28/17 Oxycodone [Oxyir] 5 mg PO Q6H PRN PRN 07/28/17 Rivaroxaban [Xarelto] 15 mg PO BID 07/28/17 Sennosides/Docusate Sodium [Sennosides-Docusate Sodium Tab] 1 each PO DAILY Primary Care Physician: Mo Hood [Primary Care Provider] - Please follow up with your Primary Care Physician in: in 5-7 days Proposed Discharge Date: 07/29/17
--- NOTE | 2017-07-29 12:51 | PCM.DC.SUM ---
Discharge Date and Diagnosis Date of Admission: 07/28/17 Date of Discharge: 07/29/17 - Primary Discharge Diagnosis Chest pain Presyncope - Secondary Discharge Diagnosis Chronic Problems (Last Updated 06/21/17 @ 11:29 by Jessica Armstrong) Lumbar back pain (Chronic) Obesity (BMI 30.0-34.9) (Chronic) Pulmonary embolism (Chronic) COPD (chronic obstructive pulmonary disease) (Chronic) Hypertension (Chronic) Hyperlipidemia (Chronic) Diabetes mellitus type II, controlled (Chronic) History of pulmonary embolism (Chronic) Hospital Course and Treatment Imaging Results: Clinical Impression(s) from Imaging Studies Chest X-Ray 07/28/17 16:54 IMPRESSION: No acute chest disease. Electronically Signed: Edy Apodaca MD at 17:15 EDT , Service support , Summary of Care Provided: The patient is a 72 year old F with recent lumbar fusion surgery at [facility] in [place], paroxysmal A. fib, recent diagnosis of pulmonary embolism following her back surgery who presented with chest pain and lightheadedness 1. Chest pain patient was placed on a monitored bed did rule out ME with serial cardiac enzymes subsequently underwent a nuclear stress test which is negative for stress-induced ischemia 2. Presyncope this was thought to be secondary to orthostatic hypotension patient blood pressure medications were held on admission patient was instructed to check her blood pressure twice a day and to follow-up with PCP within 3-5 days with a result for possible adjustment of antihypertensives if needed 3. Recently diagnosed PE following her lumbar surgery patient was on Xarelto 4. Hypertension blood pressure medications were adjusted as discussed above 5. Paroxysmal A. fib rate controlled on systemic anticoagulation with Xarelto 6. Diabetes mellitus type 2 oral agents were held patient was placed on Accu-Cheks before meals and at bedtime with sliding scale coverage 7. Recent lumbar spinal fusion surgery at [facility] in [place] 8. Hypothyroidism-patient is on levothyroxine home dose continued 9. GERD on H2 blockers 8. DVT prophylaxis patient was on Xarelto Discharge Activity: Return to Normal Activity, May not drive while taking narcotic pain medications. Home Medications: Medications to take at Discharge Albuterol Sulfate [Proventil Hfa] 2 puff IH Q6H PRN PRN 06/18/13 Fluticasone 110 Mcg [Flovent 110 Mcg] 2 puff INHALATION BID 06/18/13 Levothyroxine [Synthroid] 125 mcg PO DAILY 06/18/13 Tramadol HCl 50 mg PO Q6H PRN PRN 06/18/13 aspirin 325 mg tablet 325 mg PO DAILY tab 06/19/17 glimepiride 2 mg tablet 2 mg PO QAM 06/19/17 omeprazole 20 mg capsule,delayed release 20 mg PO QDAY 06/19/17 oxybutynin chloride ER 10 mg tablet,extended release 24 hr 10 mg PO QDAY 06/19/17 sitagliptin 100 mg tablet 100 mg PO QHS 06/19/17 Acetaminophen [Acetaminophen 8 Hour] 1,300 mg PO Q6H PRN PRN 07/28/17 Calcium Carbonate [Calcium] 600 mg PO DAILY 07/28/17 Cholecalciferol (VIT D3) [Vitamin D3] 5,000 unit PO DAILY 07/28/17 Dicyclomine HCl 20 mg PO DAILY PRN PRN 07/28/17 Oxycodone [Oxyir] 5 mg PO Q6H PRN PRN 07/28/17 Rivaroxaban [Xarelto] 15 mg PO BID 07/28/17 Sennosides/Docusate Sodium [Sennosides-Docusate Sodium Tab] 1 each PO DAILY 07/28/17 Primary Care Physician: Mo Hood [Primary Care Provider] - Please follow up with your Primary Care Physician in: in 5-7 days Disposition: Home Minutes spent on discharge:: 35 Patient Condition:: Stable Medical Necessity - Tobacco Use Smoking Status: Never smoker Tobacco Use: Non-smoker Meaningful Use Info Meaningful Use Diagnoses (Choose all that apply): None applicable Code Visit OBSV E&M: 06774 Observation care discharge
--- NOTE | 2017-07-29 12:54 | DS.PCM_ITS ---
Discharge Date and Diagnosis Date of Admission: 07/28/17 Date of Discharge: 07/29/17 - Primary Discharge Diagnosis Chest pain Presyncope - Secondary Discharge Diagnosis Chronic Problems (Last Updated 06/21/17 @ 11:29 by Jessica Armstrong) Lumbar back pain (Chronic) Obesity (BMI 30.0-34.9) (Chronic) Pulmonary embolism (Chronic) COPD (chronic obstructive pulmonary disease) (Chronic) Hypertension (Chronic) Hyperlipidemia (Chronic) Diabetes mellitus type II, controlled (Chronic) History of pulmonary embolism (Chronic) Hospital Course and Treatment Imaging Results: Clinical Impression(s) from Imaging Studies Chest X-Ray 07/28/17 16:54 IMPRESSION: No acute chest disease. Electronically Signed: Edy Apodaca MD at 17:15 EDT , Service support , Summary of Care Provided: The patient is a 72 year old F with recent lumbar fusion surgery at [facility] in [place], paroxysmal A. fib, recent diagnosis of pulmonary embolism following her back surgery who presented with chest pain and lightheadedness 1. Chest pain patient was placed on a monitored bed did rule out MS with serial cardiac enzymes subsequently underwent a nuclear stress test which is negative for stress-induced ischemia 2. Presyncope this was thought to be secondary to orthostatic hypotension patient blood pressure medications were held on admission patient was instructed to check her blood pressure twice a day and to follow-up with PCP within 3-5 days with a result for possible adjustment of antihypertensives if needed 3. Recently diagnosed PE following her lumbar surgery patient was on Xarelto 4. Hypertension blood pressure medications were adjusted as discussed above 5. Paroxysmal A. fib rate controlled on systemic anticoagulation with Xarelto 6. Diabetes mellitus type 2 oral agents were held patient was placed on Accu- Cheks before meals and at bedtime with sliding scale coverage 7. Recent lumbar spinal fusion surgery at [facility] in [place] 8. Hypothyroidism-patient is on levothyroxine home dose continued 9. GERD on H2 blockers 8. DVT prophylaxis patient was on Xarelto Discharge Activity: Return to Normal Activity, May not drive while taking narcotic pain medications. Home Medications: Medications to take at Discharge Albuterol Sulfate [Proventil Hfa] 2 puff IH Q6H PRN PRN 06/18/13 Fluticasone 110 Mcg [Flovent 110 Mcg] 2 puff INHALATION BID 06/18/13 Levothyroxine [Synthroid] 125 mcg PO DAILY 06/18/13 Tramadol HCl 50 mg PO Q6H PRN PRN 06/18/13 aspirin 325 mg tablet 325 mg PO DAILY tab 06/19/17 glimepiride 2 mg tablet 2 mg PO QAM 06/19/17 omeprazole 20 mg capsule,delayed release 20 mg PO QDAY 06/19/17 oxybutynin chloride ER 10 mg tablet,extended release 24 hr 10 mg PO QDAY sitagliptin 100 mg tablet 100 mg PO QHS 06/19/17 Acetaminophen [Acetaminophen 8 Hour] 1,300 mg PO Q6H PRN PRN 07/28/17 Calcium Carbonate [Calcium] 600 mg PO DAILY 07/28/17 Cholecalciferol (VIT D3) [Vitamin D3] 5,000 unit PO DAILY 07/28/17 Dicyclomine HCl 20 mg PO DAILY PRN PRN 07/28/17 Oxycodone [Oxyir] 5 mg PO Q6H PRN PRN 07/28/17 Rivaroxaban [Xarelto] 15 mg PO BID 07/28/17 Sennosides/Docusate Sodium [Sennosides-Docusate Sodium Tab] 1 each PO DAILY Primary Care Physician: Mo Hood [Primary Care Provider] - Please follow up with your Primary Care Physician in: in 5-7 days Disposition: Home Minutes spent on discharge:: 35 Patient Condition:: Stable Medical Necessity - Tobacco Use Smoking Status: Never smoker Tobacco Use: Non-smoker Meaningful Use Info Meaningful Use Diagnoses (Choose all that apply): None applicable Code Visit OBSV E&M: 56137 Observation care discharge
[2017-07-29] MEDS: Acetaminophen 325 MG Tablet 650 MG PO (13:43)
--- NOTE | 2017-07-29 14:06 | CASEMGMT ---
JESSIE GONZALEZ received call from bedside RN re: Home Health. JESSIE GONZALEZ met with patient who reports she is current with [facility]. JESSIE GONZALEZ called [facility] and notified of patient's observation admission and discharge. Per [facility] weekend coordinator, will have patient seen. DAVID RobertsN, RN-BC, CCM
== END 2017-07-29 14:24 | disposition home or self-care (01) ==
LOC: ED 17:00 → PCU 21:28
PROVIDERS: Admitting Provider Family Medicine; Emergency Provider Emergency Medicine; Visit Provider Internal Medicine
DX: R07.89 Other chest pain (principal); R55 Syncope and collapse; M54.5 Low back pain; G89.29 Other chronic pain; I10 Essential (primary) hypertension; J44.9 Chronic obstructive pulmonary disease, unspecified; E11.9 Type 2 diabetes mellitus without complications; E66.9 Obesity, unspecified; I48.0 Paroxysmal atrial fibrillation; E03.9 Hypothyroidism, unspecified; K21.9 Gastro-esophageal reflux disease without esophagitis; E78.2 Mixed hyperlipidemia; Z79.899 Other long term (current) drug therapy; Z79.82 Long term (current) use of aspirin; Z79.01 Long term (current) use of anticoagulants; Z86.711 Personal history of pulmonary embolism; Z68.35 Body mass index [BMI] 35.0-35.9, adult; Z71.3 Dietary counseling and surveillance; Z98.1 Arthrodesis status
CPT/HCPCS: 36415; 36600; 71045; 78452; 80048; 80061; 81001; 82803; 82962; 83735; 84439; 84443; 84484; 85025; 85027; 93005; 93017; 93306; 94640; 97161; 97165; 97802; 99284; A9500; J7030; Q9957; A4216; J2785

== ENCOUNTER → 2017-09-07 10:33 | Outpatient (CLI) | payer MEDICARE, SELFPAY ==
[2017-09-07 13:05] LABS: Thyroid Stim Hormone (TSH) 2.32 uIU/mL (0.358-3.74)
== END ==
PROVIDERS: PCP Family Medicine; Visit Provider Family Medicine
DX: E78.5 Hyperlipidemia, unspecified (principal); I10 Essential (primary) hypertension; E03.9 Hypothyroidism, unspecified; E11.65 Type 2 diabetes mellitus with hyperglycemia
CPT/HCPCS: 36415; 84443

== ENCOUNTER → 2017-09-13 09:46 | Outpatient (CLI) | payer MEDICARE, SELFPAY ==
[2017-09-13 12:38] LABS: AST(SGOT) 31 U/L (15-37); Alanine Aminotransfer ALT/SGPT 34 U/L (13-56); Albumin, Serum 3.8 g/dL (3.2-5.0); Alkaline Phosphatase 184 U/L (45-117); Bilirubin, Direct 0.12 mg/dL (0.00-0.30); Cholesterol 223 mg/dL (200); High Density Lipoprotein 63 mg/dL; Protein, Total 7.8 g/dL (6.4-8.2); Triglycerides 149 mg/dL; Very Low Density Lipoprotein 30 mg/dL (5-40)
[2017-09-13 12:46] LABS: Hemoglobin A1c 6.3 % (4.2-6.3)
== END ==
PROVIDERS: PCP Family Medicine; Visit Provider Family Medicine
DX: E78.5 Hyperlipidemia, unspecified (principal); I10 Essential (primary) hypertension; E11.65 Type 2 diabetes mellitus with hyperglycemia; E03.9 Hypothyroidism, unspecified
CPT/HCPCS: 80061; 80076; 83036

== ENCOUNTER → 2017-12-21 09:20 | Outpatient (CLI) | payer MEDICARE, SELFPAY ==
[2017-12-21 10:32] LABS: Hemoglobin A1c 6.7 % (4.2-6.3)
[2017-12-21 11:08] LABS: AST(SGOT) 18 U/L (15-37); Alanine Aminotransfer ALT/SGPT 23 U/L (13-56); Albumin, Serum 3.8 g/dL (3.2-5.0); Alkaline Phosphatase 138 U/L (45-117); Anion Gap 11 (5-15); BUN 18 mg/dL (7-18); Bilirubin, Direct 0.14 mg/dL (0.00-0.30); Calcium,Total 9.3 mg/dL (8.5-10.1); Chloride 105 mmol/L (98-107); Cholesterol 215 mg/dL (200); Creatinine, Serum 0.75 mg/dL (0.55-1.02); EST Glomerular Filtration Rate 80 mL/min (>60); Est Glom Filt Rate - Afr Amer 97 mL/min (>60); Globulin 3.7 g/dL (2.2-4.2); Glucose 118 mg/dL (74-106); High Density Lipoprotein 60 mg/dL; Potassium 3.9 mmol/L (3.5-5.1); Protein, Total 7.5 g/dL (6.4-8.2); Sodium Level 141 mmol/L (136-145); Triglycerides 150 mg/dL; Very Low Density Lipoprotein 30 mg/dL (5-40)
== END ==
PROVIDERS: PCP Family Medicine; Visit Provider Family Medicine
DX: I10 Essential (primary) hypertension (principal); E78.5 Hyperlipidemia, unspecified; E11.65 Type 2 diabetes mellitus with hyperglycemia
CPT/HCPCS: 36415; 80048; 80061; 80076; 83036

== ENCOUNTER → 2018-04-26 09:04 | Outpatient (CLI) | payer MEDICARE, SELFPAY ==
[2018-04-26 12:08] LABS: Color, Urine Yellow (Yellow); Glucose, Dipstick Normal (Normal); Ketone-Dipstick Negative (Negative); Leukocyte Esterase-Dipstick 500 /ul (Negative); Nitrite-Dipstick Negative (Negative); Occult Blood-Urine 10 /ul (Negative); Protein-Dipstick Negative (Negative); Specific Gravity, Urine 1.025 (1.002-1.030); Urine Bilirubin Dipstick Negative (Negative); Urine Clarity Sl. Cloudy (Clear); Urine Urobilinogen Normal (Normal)
[2018-04-26 12:14] LABS: Absolute Lymphocyte Count 1.23 X10^3/ul (0.83-4.51); Absolute Neutrophil Count 4.7 X10^3/uL (2.0-7.7); Basophil# 0.03 X10^3/uL; Basophil% 0.5 % (0-1); Eosinophil# 0.14 X10^3/uL; Eosinophils% 2.1 % (0-5); Hematocrit 39.2 % (37-47); Hemoglobin 12.3 g/dl (12.0-15.0); Lymphocyte # 1.23 X10^3/ul (4.0); Lymphocyte % 18.5 % (19-41); Mean Corp Hgb Conc 31.4 g/gl (32-36); Mean Corpuscular Hgb 29.4 pg (27.0-32.0); Mean Corpuscular Volume 93.6 fL (81-99); Mean Platelet Vol. 9.9 fl (6.2-12.0); Monocyte# 0.57 X10^3/uL; Monocyte% 8.6 % (0-10); Neutrophil # 4.67 X10^3/uL (2.7-7.7); Neutrophil % 70.1 % (47-70); POSITIVE COUNT NO; POSITIVE DIFFERENTIAL NO; POSITIVE MORPHOLOGY NO; Platelet Count 300 K/mm3 (150-450); RBC Distribution Width CV 13.4 % (11.6-14.6); RBC Distribution Width SD 45.9 fl (35.1-43.9); Red Blood Count 4.19 M/mm3 (4.2-5.4); White Blood Count 6.7 K/mm3 (4.4-11.0)
[2018-04-26 12:49] LABS: Cholesterol 195 mg/dL (200); High Density Lipoprotein 62 mg/dL; Thyroid Stim Hormone (TSH) 1.99 uIU/mL (0.358-3.74); Triglycerides 110 mg/dL; Very Low Density Lipoprotein 22 mg/dL (5-40)
[2018-04-26 12:50] LABS: Hemoglobin A1c 7.4 % (4.2-6.3)
== END ==
PROVIDERS: PCP Family Medicine; Referring Provider Family Medicine; Visit Provider Family Medicine
DX: Z00.00 Encounter for general adult medical examination without abnormal findings (principal); E78.5 Hyperlipidemia, unspecified; I10 Essential (primary) hypertension; E11.65 Type 2 diabetes mellitus with hyperglycemia; E03.9 Hypothyroidism, unspecified
CPT/HCPCS: 36415; 80061; 81002; 83036; 84443; 85025

== ENCOUNTER → 2018-08-16 08:56 | Outpatient (CLI) | payer MEDICARE, SELFPAY ==
--- NOTE | 2018-08-16 09:44 | MRI_ITS ---
STUDY: MRI BRAIN WITH AND WITHOUT CONTRAST REASON FOR EXAM: Female, 73 years old. Dysphagia, dizziness TECHNIQUE: Standardized multiplanar fat and water weighted pulse sequences were obtained. 19 IV Dotarem was administered for the contrast portion of the examination. COMPARISON: Brain MRI 01/20/2014. FINDINGS: Normal size of the ventricles and extra-axial spaces for the patient's age. Normal white matter tracts of the supratentorial brain. Normal bilateral basal ganglia. Normal thalami. There is no extra-axial fluid accumulation. Normal flow voids within the major intracranial circulation suggesting patency by spin echo criteria. Normal venous enhancement. There is no enhancing intra-axial or extra-axial abnormality. There is an empty sella. Normal infundibular stalk, optic chiasm and hypothalamus. Normal tectal plate and pineal gland. Normal midbrain, kasia and medulla. Normal cerebellum. Normal basal cisterns. Normal bilateral temporal bones. Normal bilateral internal auditory canals. There is prominent subarachnoid space surrounding the optic nerves bilaterally. There is mild right maxillary sinus, mucosal thickening. Normal calvarium and skull base. Normal visualized soft tissue structures. Normal visualized upper cervical spine. MRI/Brain W/WO Contrast IMPRESSION: There is prominent subarachnoid space surrounding the optic nerves bilaterally and empty sella noted, findings may represent idiopathic intracranial hypertension. No enhancing abnormality. Electronically Signed: Yossi Castillo, at 13:23 EDT Tel , Service support ,
[2018-08-16 10:26] LABS: CREATININE FINGERSTICK < 0.6 mg/dL (0.55-1.02); EGFR FINGERSTICK > 60.0000 mL/min (>60)
== END ==
PROVIDERS: PCP Family Medicine; Referring Provider Psychiatry & Neurology Neurology; Visit Provider Psychiatry & Neurology Neurology
DX: R13.10 Dysphagia, unspecified (principal)
CPT/HCPCS: 70553; A9575

== ENCOUNTER → 2018-12-19 12:36 | Outpatient (CLI) | payer MEDICARE, SELFPAY ==
--- NOTE | 2018-12-19 12:54 | BI_ITS ---
MAMMOGRAPHY - BILATERAL SCREENING REASON FOR EXAM: Female, 73 years old. Routine annual screening examination. PERTINENT HISTORY: Aunt with breast cancer. TECHNIQUE: Digital bilateral breast ashley (3D mammographic acquisition) in the CC and MLO projections. 2-D mediolateral oblique (MLO) and craniocaudad (CC) views of both breasts were obtained. CAD: Full Field Digital Mammography with Computer Added Detection was performed. COMPARISON: Comparison is made with prior study dated September 01, 2016 and July 02, 2012. FINDINGS: Breast Composition: There are scattered areas of fibroglandular density. There are no dominant masses or suspicious calcifications. No other significant abnormalities are identified. There has been no significant change since the prior study. BI/SCREEN MAMM (CAD) W/ASHLEY BILAT IMPRESSION: Stable bilateral screening mammogram. Yearly follow-up mammogram recommended. (A) ASSESSMENT CATEGORY: BIRADS Category 1: Negative. A letter regarding these results will be sent to the patient by the facility within 30 days. Approximately 10% of breast cancers are not detected by mammography. A normal mammogram should not delay biopsy of a clinically suspicious abnormality. [id number] Electronically Signed: Zion Chen, at 15:35 EDT , Service support ,
== END ==
PROVIDERS: Referring Provider Family Medicine; Visit Provider Family Medicine
DX: Z12.31 Encounter for screening mammogram for malignant neoplasm of breast (principal); Z80.3 Family history of malignant neoplasm of breast
CPT/HCPCS: 77063; 77067

== ENCOUNTER → 2018-12-31 12:53 | Outpatient (CLI) | payer MEDICARE, SELFPAY ==
--- NOTE | 2018-12-31 12:55 | RAD_ITS ---
STUDY: SWALLOWING STUDY REASON FOR EXAM: Female, 73 years old. Dysphasia. TECHNIQUE: The examination was performed with Speech Pathology in attendance. Under fluoroscopic observation, the patient ingested thin barium, thick barium, barium pudding, and barium coated cracker. FLUOROSCOPY TIME: 1:06 minutes/seconds. 1316 fluoroscopic images were obtained. RADIOLOGIST INVOLVEMENT: Radiologist was present and providing direct supervision. COMPARISON: None. FINDINGS: The following was observed during swallowing of the various mixtures of barium: Thin Barium: Transient penetration with evacuation upon ingestion of thin liquids. Barium Pudding: There was no evidence of aspiration or laryngeal penetration. Barium Coated Cracker: There was no evidence of aspiration or laryngeal penetration. RAD/Swallowing Function w/Video IMPRESSION: Transit penetration with evacuation upon ingestion of thin liquids. The swallow study findings were discussed with the patient by the speech pathologist at the conclusion of the examination. Please see speech pathology report for more information and recommendations. Electronically Signed: Zion Chen, at 14:24 EDT , Service support ,
--- NOTE | 2018-12-31 13:00 | SP.MBSS_ITS ---
PRIMARY / SECONDARY DIAGNOSIS: Dysphagia (R13.12) REFERRING PHYSICIAN: Dr. Chandana Shaw CURRENT DIET: regular textures/thin liquids DENTITION: natural dentition w/ upper partial in place, 2 missing molars MENTAL STATUS: WFL for participation in MBS RESPIRATORY STATUS: oxygenating on room air PREVIOUS MODIFIED BARIUM SWALLOW STUDY: reports prior MBS greater than 10 years ago, repot not available, patient reports findings were WNL REASON FOR REFERRAL: Pt is a 73 year old female who was referred for outpatient evaluation of swallow function at [facility] on 11/28/2018 w/ further objective assessment of swallow function recommended by the evaluating CLOTHER IN. The patient reports that she has difficulty swallowing solids and liquids, in addition to coughing and choking in absence of PO intake w/ associated globus sensation (patient pointing to clavicular region to indicate location, although reports occasional sensation of lower esophageal retention). Pt indicates frequency of symptoms to be approximately once per week. Denies hx of head/neck surgery or neurological diagnoses. Does report hx of past Belkys fundoplication surgery for management of severe GERD approximately 15 years ago. MEDICAL HISTORY: History obtained from review of medical record and patient interview - asthma, chest pain, COPD, depression, DMII, hx pulmonary embolism, hyperlipidemia, hypertension, hypothyroidism, IBS, kidney disease, lung disease, premature atrial contractions, premature ventricular contractions, SOB, sleep apnea, symptomatic bradycardia. Surgical history cholecystectomy, lumbar fusion L3-4 07/2016, Belkys fundoplication, right hip replacement, hernia repair, lumbar discectomy L4-5, spinal fusion STUDY FINDINGS: Patient participated in a Modified Barium Swallow (MBS) study on 12/31/2018. Dr. Chen was the radiologist present for this evaluation. This study was recorded in the lateral view and images were sent to PACs for storage. The following consistencies were presented to this patient for analysis of oropharyngeal swallow function: honey thickened liquids and pudding. Results of the MBS are as follows: PENETRATION / ASPIRATION SCALE (CASILLAS): 1 = does not enter airway 2 = enters airway/above vocal folds/ejected 3 = enters airway/above vocal folds/not ejected 4 = enters airway/contacts vocal folds/ejected 5 = enters airway/contacts vocal folds/not ejected 6 = enters airway/below vocal folds/ejected 7 = enters airway/below vocal folds/not ejected despite effort 8 = enters airway/below vocal folds/no effort PENETRATION / ASPIRATION SCALE (SCORE): 1. Thin liquid 5mL teaspoon: 1 2. Thin liquid 5mL teaspoon: 1 3. Thin liquid single sip via cup: 1 4. Thin liquid sequential swallows via cup: 2 5. Pudding via teaspoon: 1 6. ? barium coated cookie: 1 7. Thin liquid single sip via straw: 1 IMPRESSION ORAL PHASE CHARACTERIZED BY: LABIAL SEAL: no labial escape TONGUE CONTROL DURING BOLUS MANIPULATION: cohesive bolus between tongue to palatal seal BOLUS PREPARATION / MASTICATION: timely and efficient chewing and mashing BOLUS TRANSPORT / LINGUAL MOTION: brisk tongue motion ORAL RESIDUE: trace residue lining oral structures PHARYNGEAL PHASE CHARACTERIZED BY: INITIATION OF PHARYNGEAL SWALLOW: bolus head at posterior angle of ramus at first hyoid excursion SOFT PALATE ELEVATION: no bolus between soft palate and pharyngeal wall LARYNGEAL ELEVATION: complete superior movement of thyroid cartilage with complete approximation of arytenoids cartilage to epiglottic petiole ANTERIOR HYOID EXCURSION: complete anterior movement EPIGLOTTIC MOVEMENT: complete epiglottic inversion LARYNGEAL VESTIBULE CLOSURE AT HEIGHT OF SWALLOW: complete laryngeal vestibule closure with no air/contrast in laryngeal vestibule PHARYNGEAL STRIPPING WAVE: pharyngeal stripping wave present / diminished PHARYNGOESOPHAGEAL SEGMENT OPENING: complete distension and complete duration with no obstruction of flow TONGUE BASE RETRACTION: narrow column of contrast between tongue base and posterior pharyngeal wall PHARYNGEAL RESIDUE: trace residue within or on pharyngeal structures ESOPHAGEAL PHASE CHARACTERIZED BY: ESOPHAGEAL BOLUS CLEARANCE IN THE UPRIGHT POSITION: complete clearance; esophageal coating INTERPRETATION OF RESULTS This patient presents with mild oropharyngeal dysphagia (R13.12) characterized by a mild reduction in base of tongue retraction and diminished pharyngeal stripping wave resulting in contrast lining the pharyngeal tongue (trace-mild) post deglutition. Transient penetration noted once during sequential swallow of thin liquid, scant in nature and considered to be WNL. Despite findings, the patient demonstrates mastication and deglutition abilities that are grossly within functional limits. Further assessment of esophageal swallow function should be considered given the description of globus sensation w/ PO intake and history of severe GERD. RECOMMENDATIONS DIET TEXTURE RECOMMENDATIONS: regular textures/thin liquids COMPENSATORY STRATEGIES RECOMMENDED: Seated upright at 90 degrees during PO intake, remain upright for 30-60 minutes post meal (GERD precaution), reduced liquid bolus volume (small sips, one sip at a time) NEED FOR SKILLED SPEECH-LANGUAGE INTERVENTION TARGETING DYSPHAGIA: Patient requires skilled speech-language intervention targeting training and implementation of recommended compensatory strategies and further education re: MBS findings. REFERRALS: Would consider further referral for esophageal workup due to the symptoms described above by the Patient history of severe GERD s/p Belkys fundoplication surgery w/ globus sensation and esophageal retention reported in addition to coughing/choking, reported to occur with and without PO intake, at least 1x/week. ADDITIONAL COMMENTS/RECOMMENDATIONS: Results and recommendations were discussed with the Patient immediately following MBS completion, with the Patient verbalizing understanding and agreement with all recommendations and education provided. IMAGE COUNT: [id number]
== END ==
PROVIDERS: PCP Family Medicine; Referring Provider Psychiatry & Neurology Neurology; Visit Provider Psychiatry & Neurology Neurology
DX: R13.10 Dysphagia, unspecified (principal)
CPT/HCPCS: 74230; 92611

== ENCOUNTER 2019-01-11 08:00 | Outpatient (RCR) | payer MEDICARE, SELFPAY ==
--- NOTE | 2018-11-02 13:46 | HP.PTEVAL ---
Patient's Visit Information DUNG MEEK is a 73 year old F referred to Physical Therapy by Chandana Shaw MD with a diagnosis of unsteadiness and imbalance. Date of Evaluation: 11/02/18 Physical Therapist: Chandana Albarran DPT, OCS, CSCS - Visit Plan Frequency: 2x /Week Duration: 2 Months Plan: Neurocom balance assessment then 2x/week for 6-8 weeks for. LE and postural strength and progress to I. Stretch HS and gastroc. Balance and gait training per results of Neurocom. - Subjective Findings: Seeing after spinal fusion last July 2017. Was transferred to [facility] at the time for AFIB. Was there 13 days and did not get much better. Saw another doctor in [place] and said heart was good. Blood pressure still up and irregular heart beat. Sent to neuro due to heart rate all over the place to see if that helped. Has tremor in B UE adn R LE and sees Valeria for that. Tested for parkinson's and it was OK. However bshe keeps falling, lately on October 18 on one step at home adn missed it. Is on blood thinnners and gets checked if hits head. Fell 3x in last month one time tripping on puppy. Not using cane or walker but has both of them. Uses cane sometimes but back can hurt with the cane. Not against using it more often. Has full flight of steps but does nto go up and down them. Neuropathy in B LE but not sure why. No regular spinning outside of blood pressure changes. Not employed. Spends day watching two grand daughters btu they are 12/28. Keeps house and cooks OK. does sweeper adn laundry. No regular exercises. Hobbies include accounting for neighbor. - Objective Walks slow but I on firm flat surfaces, trasnfers slow but I. VOR slow but walks well with it. c/s aROM WFL without pain today. patella and achilels reflexes 1/3. Sensation LE seems deficit in distal feet. Coordination to reciprocal toe tap and heel tap appears competent and normal. Strength hips 3+, knees 4- and ankles 4- B. HS and gastrocs tight mod B. - Balance Scores Functional Gait Assessment Score: 21 % Disability: 30.0000 CATSIB Score (Max score 120 seconds): 120 - Goals Goal 1:: FGA to minimze fall risk. Goal Time Frame: 6-8 Weeks Goal 2:: Patient feel 75% improvement in overall balance subjective Goal Time Frame: 6-8 Weeks Goal 3:: Pt I in appropr HEP to minimize future problems. Goal Time Frame: 6-8 Weeks Goal 4:: Confiednce to go up and down steps at home with rail Goal Time Frame: 6-8 Weeks Goal 5:: <30% disability on LEFS - Rehabilitation Potential Physical Therapy Diagnosis: unsteadiness and imbalance. Rehabilitation Potential: Fair - Anticipated Interventions Patient/Client Instruction: Educate patient on: Condition, Plan of Care For the Purpose of:: To improve balance, To improve safety with gait Therapeutic Exercise to Include: Strength training, Balance training, Flexibilty training, Gait and locomotor training For the Purpose of:: To improve muscle performance and motor function, To increase tolerance to activity/condition/position, To improve balance, To improve safety with gait Thank you for the opportunity to evaluate your patient. For Medicare and Medicare HMO plans, please review the plan of care and approve it. It will need to be FAXED BACK to us at [phone] for Medicare purposes. For Medicare only, by signing this I certify the plan of care. Please let me know if there are questions or concerns regarding this plan of care. Physician Signature: Date:
--- NOTE | 2018-11-15 13:39 | HP.PTCOM ---
PT Communication Note 11/15/[address] Chandana Shaw MD , Thank you for the referral of Aga to [facility] for balance assessment. I have enclosed a copy of the results for your review. In summation, she scored well on the Motor Control Test. She scored low on the vestibular portion of the Sensory Organization Test. She scored at deficit on the forward excursion portion of the Limits of Stability Test. With these results in mind, I plan to see Aga for 2x/week for 4-8 weeks to work on these balance deficits with exercise, gait training, stretching adn strength exercise and progress to home program. Please do not hesitate to call if there are questions. Thank you. Sincerely, Chandana Albarran, DPT, OCS, CSCS Contact Information
--- NOTE | 2018-11-28 13:15 | HP.SP.AD_ITS ---
History - History Date of Eval: 11/27/18 Date of Onset of Diagnosis: 11/27/18 Previous speech therapy: No Results: Previous MBS (remote) with normal results. Other Relevant Medical History/Diagnoses/Surgery: Frequent falls, In physical therapy currently. Short of breath easily. asthma. 3 back surgeries, 1 hip replacement, gall bladder surgery, Goiter Smoking Status: Never smoker Hx Smoking: No Hx Tobacco Use: No - Pain Is pain an issue with your current prescribed condition?: No - Personal Right Hearing Abillity: Normal Left Hearing Abillity: Normal Visual Assistive Devices: Glasses Patients Living Arrangements: With Significant Other Patient Allergies - Allergies Allergies nitrofurantoin macrocrystalline [From Macrodantin] Allergy (Verified 09/01/17 10:54) Hives rosuvastatin [From Crestor] Adverse Reaction (Severe, Verified 09/01/17 10:54) Muscle weakness colesevelam [From WelChol] Adverse Reaction (Intermediate, Verified 09/01/17 10:54) nausea nitrofurantoin [From Furadantin] Adverse Reaction (Intermediate, Verified 09/01/17 10:54) Unknown Objective Oral Motor - Oral Status Dentition: WNL, Missing Teeth Additional: TWo in back and she is aware to shift bolus to other side. - Labial Impairment: WNL Closure: WNL Pucker: WNL Retraction: WNL Alternating Pucker/Retraction: WNL - Lingual Impairment: WNL Protrusion: WNL Retraction: WNL Lateralization: WNL Involuntary Movement: No - Jaw Impairment: WNL - Respiratory Status Respiratory Status: Room Air Subjective Dysphagia - Symptoms Reported Symptoms/Problems with: Choking, Difficulty Swallowing Solids, Difficulty Swallowing Liquids, Food gets stuck, Hx of Pneumonia Other: Remote history of peumonia - Current Diet Solids Current Diet: Regular - Current Diet Liquids Current Liquids: Thin Objective Dysphagia - Administered by Administered by: Self - Thin Liquids Administred via: Cup Laryngeal Elevation: Impaired Oral Holding: No Patient Report: Patient stated that she did not haev any dysphagia symptoms during this evaluation. Her symptoms are intermittent. Comments: Laryngeal elevelation appeared mildly reduced. - Regular Laryngeal Elevation: Impaired Oral Holding: No Gagging: No Patient Report: The patient reported no feeling of statis today. Comments: Laryngeal elevelation appeared mildly reduced. Other Impressions - Comments Comment -: The patient fell as she was walking back to therapy room. She did not need further assessment by doctor per the patient. She allowed ice on her knee but di d not want any further treatment. This did not overly affect the results of her evaluation. Plan - Plan Plan: Recommend further evaluation through instruamental testing. - Recommendations MBS: Yes - Prognosis Prognosis: Good - Goal #1-5 Goal #1: The Patient will tolerate the least restrictive means of nutrition to facilitate adequate hydration/nutrition with optimum safety and efficiency of swallowing function during P.O. intake without overt signs and symptoms of aspiration. Goal #2: Other goals pending results of MBS. Education - Patient has Indicated that the Following Identified Educational Needs: None The Patient has indicated that they have no educational or learning abilities that may effect their care.: Yes - Patient Instruction Patient Education: Diagnosis, Treatment Plan, Diet Level Person Taught: Patient Teaching Method: Discussion Response to teaching: Verbalize understanding
--- NOTE | 2018-12-10 10:21 | HP.PTREVAL ---
Chandana Shaw MD, It has been my pleasure to treat DUNG MEEK over the last 5 visits for unsteadiness and imbalance. Please see the progress note below for an update on the physical therapy plan of care! Subjective: I think I have improved to a point. Getting done the things that she needs to. Baked a cake whcih she has not done in a while and trying to make new dishes for supper. Still gets Still gets unsteady as blood pressure is still not regulated adn seeing doctor for this in [place] this Monday. Doing HEP of sink exercises. Wants to keep going with therapy after sees this heart doctor on This . Was not using cane ast week when she fell but is now. Or walker at home. Went to baseball game Monday and walked on irregular ground with more confidence btu still needed to grab 2x despite using cane. Objective/Function: FGA is same as last time, too early to note improvements. steps are confident with one rail and reciprocal. Subjectively stating improvements but not able/confident with home balance ex yet. Feels like needs to cotninue but wishes to wait until after this cardiac f/u. Continue POC in PT is my recommendation, same goals and fair prognosis. Plan Plan: 2x/week for 3-4 more if approved for progreessing balance ex to HEP as she is now doing strength at home. Work to I with balance and gait ex and progress strength as able. Give pics. Goals Goal 1:: FGA to minimze fall risk. Goal Time Frame: 6-8 Weeks Goal Progress: ?? progression, early! Goal 2:: Patient feel 75% improvement in overall balance subjective Goal Time Frame: 6-8 Weeks Goal Progress: slow progression Goal 3:: Pt I in appropr HEP to minimize future problems. Goal Time Frame: 6-8 Weeks Goal 4:: Confiednce to go up and down steps at home with rail Goal Time Frame: 6-8 Weeks Goal Progress: Progressing Goal 5:: <30% disability on LEFS Anticipated Interventions Patient/Client Instruction: Educate patient on: Condition, Plan of Care For the Purpose of:: To improve balance, To improve safety with gait Therapeutic Exercise to Include: Strength training, Balance training, Flexibilty training, Gait and locomotor training For the Purpose of:: To improve muscle performance and motor function, To increase tolerance to activity/condition/position, To improve balance, To improve safety with gait Please do not hesitate to contact me at [phone] by phone or if you have questions or concerns regarding this new plan of care! Sincerely, Chandana Albarran, DPT, OCS, CSCS
--- NOTE | 2019-01-09 12:15 | HP.SP.DC_ITS ---
ST Discharge Summary - Discharged: Discharge: Aga Walters is discharged from [facility] as of 01/09/19. She had her initial evaluation on 11/28/18. She was recommended to have a modified barium swallow study which was completed on 12/31/18 with no further speech therapy recommended. She was recommended a regular diet with thin liquids and to follow up with her doctor for furthern concerns. As no therapy was recommended this patient is discharged and a copy of this summary will be sent to her referring physician.
--- NOTE | 2019-01-11 09:17 | HP.PTDCSUM ---
HP - PT D/C Summary It has been my pleasure to treat DUNG MEEK under orders from Chandana Shaw MD, for the diagnosis of unsteadiness and imbalance for a total of 9 visit(s). Discharge Date: 01/11/19 Please see the following information for a summary of their discharge status. - Subjective Subjective: Doing some good. I now have some good days. Got a new CPAP also. Did some baking which she had not done in ages. Steadiness and fatigue kept her from doing that. Good days she has more energy and more steady. No pattern. Doing exercises for balance at home. To doctor Valeria yesterday and does not have +Parkinson's test. Did start on Parkinson's meds this morning. Starting her out slow and will f/u in February. Wants to continue via HEP due to large copay. Using cane out and about. Had MRI on knee yesterday - Pain Left Ribs Pain Intensity (Out of 10): 0 Right Knee Pain Intensity (Out of 10): 0 R knee Pain Intensity (Out of 10): 4 - Overall Improvement % Improvement: 20 - Objective Objective/Function: FGA is +2 overall and LEFS is percentage points improved. Walking safe on firm flat surface with lights adn has cane to use. Will continue via HEP as she is busy and cannot afford more copay at this point. - Goals Goal 1:: FGA / to minimze fall risk. Goal Progress: Progressing Goal 2:: Patient feel 75% improvement in overall balance subjective Goal Progress: slow progression Goal 3:: Pt I in appropr HEP to minimize future problems. Goal Progress: Goal Met Goal 4:: Confiednce to go up and down steps at home with rail Goal Progress: old steps at home. Goal 5:: <30% disability on LEFS Goal Progress: minmal progression - Plan Plan: d/c to hep - D/C Information Discharge Comments: Pt to continue via HEP and f/u with doctor in February. If there are questions or concerns regarding this patient's physical therapy, please feel free to call me at [phone]. Thank you for the referral of this patient. Sincerely, Chandana Albarran, DPT, OCS, CSCS
== END 2019-01-11 19:00 | disposition home or self-care (01) ==
LOC: PT 08:00
PROVIDERS: PCP Family Medicine; Visit Provider Psychiatry & Neurology Neurology
DX: R26.81 Unsteadiness on feet (principal); R26.89 Other abnormalities of gait and mobility
CPT/HCPCS: 92610; 97110; 97162; 97164; 97530; 97750

== ENCOUNTER → 2019-03-26 15:42 | Outpatient (CLI) | payer MEDICARE, SELFPAY ==
[2019-03-26 17:44] LABS: Absolute Lymphocyte Count 1.61 X10^3/uL (0.83-4.51); Absolute Neutrophil Count 6.1 X10^3/uL (2.0-7.7); Basophil# 0.06 X10^3/uL; Basophil% 0.7 % (0-1); Eosinophil# 0.18 X10^3/uL; Eosinophils% 2.1 % (0-5); Hematocrit 39.6 % (37-47); Hemoglobin 12.8 g/dL (12.0-15.0); Lymphocyte # 1.61 X10^3/ul (4.0); Lymphocyte % 18.6 % (19-41); Mean Corp Hgb Conc 32.3 g/dL (32-36); Mean Corpuscular Hgb 30.3 pg (27.0-32.0); Mean Corpuscular Volume 93.8 fL (81-99); Mean Platelet Vol. 10.5 fl (6.2-12.0); Monocyte# 0.71 X10^3/uL; Monocyte% 8.2 % (0-10); NRBC Flagged by Analyzer 0 % (0-5); Neutrophil # 6.07 X10^3/uL (2.7-7.7); Neutrophil % 70.1 % (47-70); Platelet Count 298 K/mm3 (150-450); RBC Distribution Width CV 13.2 % (11.6-14.6); RBC Distribution Width SD 45.7 fl (35.1-43.9); Red Blood Count 4.22 M/mm3 (4.2-5.4); White Blood Count 8.7 K/mm3 (4.4-11.0)
[2019-03-26 18:03] LABS: Hemoglobin A1c 7.5 % (4.2-6.3)
[2019-03-26 18:06] LABS: Vitamin B12 866 pg/mL (211-911)
[2019-03-26 18:07] LABS: AST(SGOT) 16 U/L (15-37); Alanine Aminotransfer ALT/SGPT 31 U/L (13-56); Albumin, Serum 3.8 g/dL (3.2-5.0); Alkaline Phosphatase 126 U/L (45-117); Anion Gap 6 (5-15); BUN 18 mg/dL (7-18); BUN/Creat Ratio 24.3 RATIO (10-20); Calcium,Total 9.1 mg/dL (8.5-10.1); Chloride 102 mmol/L (98-107); Creatinine, Serum 0.74 mg/dL (0.55-1.02); EST Glomerular Filtration Rate 81 mL/min (>60); Est Glom Filt Rate - Afr Amer 98 mL/min (>60); Ferritin 104 ng/mL (8-252); Globulin 3.8 g/dL (2.2-4.2); Glucose 114 mg/dL (74-106); Iron 74 ug/dL (50-170); Magnesium 1.9 mg/dL (1.6-2.6); Potassium 3.7 mmol/L (3.5-5.1); Protein, Total 7.6 g/dL (6.4-8.2); Sodium Level 138 mmol/L (136-145); Thyroid Stim Hormone (TSH) 1.11 uIU/mL (0.358-3.74)
== END ==
PROVIDERS: Family Provider Family Medicine; PCP Family Medicine; Visit Provider Family Medicine
DX: D64.9 Anemia, unspecified (principal); I48.91 Unspecified atrial fibrillation; E11.9 Type 2 diabetes mellitus without complications
CPT/HCPCS: 36415; 80053; 82607; 82728; 83036; 83540; 83735; 84443; 85025

== ENCOUNTER → 2019-08-06 08:09 | Outpatient (CLI) | payer MEDICARE, SELFPAY ==
[2019-08-06 10:24] LABS: Vitamin B12 695 pg/mL (211-911)
[2019-08-06 10:56] LABS: Thyroid Stim Hormone (TSH) 4.63 uIU/mL (0.358-3.74)
== END ==
PROVIDERS: PCP Family Medicine; Referring Provider Psychiatry & Neurology Neurology; Visit Provider Psychiatry & Neurology Neurology
DX: R25.1 Tremor, unspecified (principal); R41.0 Disorientation, unspecified; R44.3 Hallucinations, unspecified
CPT/HCPCS: 36415; 82607; 82746; 84443

== ENCOUNTER → 2019-08-07 10:13 | Outpatient (CLI) | payer MEDICARE, SELFPAY ==
[2019-08-07 10:32] LABS: Bacteria 0 SEEN /hpf (None Seen); Mucous, Urine 0 SEEN /hpf (<or=2+); Red Blood Cells-Urine 0 SEEN /hpf (0-5); Squamous Epithelial Cells - UA 0 SEEN /hpf (5-10); White Blood Cells 0 SEEN /hpf (0-5)
[2019-08-07 11:01] LABS: Color, Urine Yellow (Yellow); Glucose, Dipstick 100 mg/dl (Normal); Ketone-Dipstick Negative (Negative); Leukocyte Esterase-Dipstick Negative /ul (Negative); Nitrite-Dipstick Negative (Negative); Occult Blood-Urine Negative /ul (Negative); Protein-Dipstick Negative (Negative); Specific Gravity, Urine 1.015 (1.002-1.030); Urine Bilirubin Dipstick Negative (Negative); Urine Clarity Clear (Clear); Urine Urobilinogen Normal (Normal)
== END ==
LOC: LAB.FUTURE 10:15 → LABSPEC 08-28 09:12
PROVIDERS: PCP Family Medicine; Referring Provider Psychiatry & Neurology Neurology; Visit Provider Psychiatry & Neurology Neurology
DX: R25.1 Tremor, unspecified (principal); R41.0 Disorientation, unspecified; R44.3 Hallucinations, unspecified
CPT/HCPCS: 81001

== ENCOUNTER → 2019-08-15 09:22 | Outpatient (CLI) | payer MEDICARE, SELFPAY ==
--- NOTE | 2019-08-15 09:35 | MRI_ITS ---
STUDY: MRI BRAIN WITHOUT CONTRAST REASON FOR EXAM: Female, 74 years old. stroke, frequent falls TECHNIQUE: Standardized multiplanar fat and water weighted pulse sequences were obtained. COMPARISON: August 16, 2018 FINDINGS: There is mild cerebral atrophy with widening of the extra-axial spaces and ventricular dilatation. Normal white matter tracts of the supratentorial brain. Normal bilateral basal ganglia. Normal thalami. There is no extra-axial fluid accumulation. Normal flow voids within the major intracranial circulation suggesting patency by spin echo criteria. Again noted is a enlargement of the sella turcica with increased CSF within the sella and flattening of the pituitary gland consistent with an empty sellar syndrome. The previously noted minimally prominent subarachnoid spaces surrounding the optic nerves are less prominent on today''s examination and within normal limits. Normal infundibular stalk, hypothalamus, and optic chiasm. Normal tectal plate and pineal gland. Normal midbrain, kasia and medulla. Normal cerebellum. Normal basal cisterns. There is mild paranasal sinus disease. MRI/Brain without Contrast IMPRESSION: No acute intracranial abnormality. Electronically Signed: Harika Don MD at 15:41 EDT Tel , Service support ,
== END ==
PROVIDERS: PCP Family Medicine; Referring Provider Psychiatry & Neurology Neurology; Visit Provider Psychiatry & Neurology Neurology
DX: I63.9 Cerebral infarction, unspecified (principal)
CPT/HCPCS: 70551

== ENCOUNTER → 2019-08-29 08:29 | Outpatient (CLI) | payer MEDICARE, SELFPAY ==
[2019-08-29 12:56] LABS: Cholesterol 196 mg/dL (200); Glucose 210 mg/dL (74-106); High Density Lipoprotein 60 mg/dL; Triglycerides 181 mg/dL; Very Low Density Lipoprotein 36 mg/dL (5-40)
== END ==
PROVIDERS: PCP Family Medicine; Visit Provider Family Medicine
DX: E11.9 Type 2 diabetes mellitus without complications (principal)
CPT/HCPCS: 36415; 80061; 82947; 83036

== ENCOUNTER 2019-09-09 22:00 | Emergency (ER) | payer MEDICARE, SELFPAY ==
[2019-09-09 22:03] VITALS: BP 142/71; PULSE 85; RESP 23; TEMP 36.6; O2SAT 99; BMI 37.0
--- NOTE | 2019-09-09 22:09 | RAD_ITS ---
STUDY: X-RAY CHEST REASON FOR EXAM: Female, 74 years old. Chest pain. Right 10th rib fractures suffered 5 weeks ago. TECHNIQUE: AP portable upright COMPARISON: 07/28/2017 CXR FINDINGS: No evidence of pneumonia, pulmonary edema, pneumothorax or pleural effusion. Low lung volumes with mild bibasilar subsegmental atelectasis. Cardiac silhouette, hilar and mediastinal contours with no acute findings. Heart size normal. Atherosclerosis and tortuosity of the thoracic aorta. Moderate hiatal hernia. Degenerative osseous changes with no acute osseous abnormality. RAD/Chest 1 View (Portable) IMPRESSION: No acute findings. Electronically Signed: Shant Frye, at 22:56 EDT Tel , Service support ,
--- NOTE | 2019-09-09 22:09 | EKG12_ITS ---
Test Reason : CP Blood Pressure : / mmHG Vent. Rate : 086 BPM Atrial Rate : 086 BPM P-R Int : 188 ms QRS Dur : 086 ms QT Int : 368 ms P-R-T Axes : -07 -01 029 degrees QTc Int : 440 ms Normal sinus rhythm Nonspecific T wave abnormality Confirmed by ANAY VILLA, GILDA ([id number]), purchasing expeditor DIGNA KATE ([id number]) on 09/12/2019 2:43:04 PM Referred By: TL Confirmed By:GILDA CUEVA MD
[2019-09-09 22:23] LABS: Absolute Lymphocyte Count 1.78 X10^3/uL (0.83-4.51); Absolute Neutrophil Count 6.2 X10^3/uL (2.0-7.7); Basophil# 0.07 X10^3/uL; Basophil% 0.8 % (0-1); Eosinophil# 0.16 X10^3/uL; Eosinophils% 1.7 % (0-5); Hematocrit 40.9 % (37-47); Hemoglobin 13.3 g/dL (12.0-15.0); Lymphocyte # 1.78 X10^3/ul (4.0); Lymphocyte % 19.4 % (19-41); Mean Corp Hgb Conc 32.5 g/dL (32-36); Mean Corpuscular Hgb 30.3 pg (27.0-32.0); Mean Corpuscular Volume 93.2 fL (81-99); Mean Platelet Vol. 10.2 fl (6.2-12.0); Monocyte# 0.87 X10^3/uL; Monocyte% 9.5 % (0-10); NRBC Flagged by Analyzer 0 % (0-5); Neutrophil # 6.24 X10^3/uL (2.7-7.7); Neutrophil % 68.2 % (47-70); Platelet Count 306 K/mm3 (150-450); RBC Distribution Width SD 43.8 fl (35.1-43.9); Red Blood Count 4.39 M/mm3 (4.2-5.4); White Blood Count 9.2 K/mm3 (4.4-11.0)
[2019-09-09 22:31] VITALS: O2SAT 98
[2019-09-09 22:40] LABS: Anion Gap 5 (5-15); BUN 26 mg/dL (7-18); BUN/Creat Ratio 28.7 RATIO (10-20); Calcium,Total 9.5 mg/dL (8.5-10.1); Chloride 104 mmol/L (98-107); Creatinine, Serum 0.91 mg/dL (0.55-1.02); EST Glomerular Filtration Rate 64 mL/min (>60); Est Glom Filt Rate - Afr Amer 78 mL/min (>60); Estimated Creatinine Clearance 47.33 ml/min; Glucose 245 mg/dL (74-106); Potassium 3.7 mmol/L (3.5-5.1); Sodium Level 139 mmol/L (136-145)
--- NOTE | 2019-09-09 22:54 | ED.DCSUM_ITS ---
History of Present Illness Chief Complaint: Chest Pain Informant: Patient Onset: Hours - 3-4 Activity at onset: Rest Timing: Continuous Quality: Aching Location: Left Chest Current Severity: Mild Maximum Severity: Moderate Worsened By: Nothing. Not Worsened By: Exertion, Breathing, Coughing Relieved By: Nothing Associated Symptoms: Vomiting. Negative for: Diaphoresis, Dyspnea, Cough, Fever, Lightheadedness, Palpitations Narrative: Patient ate around 5 or 530. She felt like some food got stuck in her midesophagus which is happened in the past, requiring dilatation. She has had a Belkys in the past as well. She states she was told these issues were related to her Parkinson's. Since then she had been vomiting, for the next 3 to 4 hours. At around 7 or 730, she started developing chest discomfort in the lateral left aspect of her chest around the same time as left neck and left upper extremity pain, along with tingling down her arm, stocking glove in distribution, involving all 5 fingers. No changes in the dysesthesias with head position changes. She was resting when this started, lying in bed. She presents to the ER and was examined around 10:30 PM for this. The discomfort is still there, it has waxed and waned, better now than it was in the past. States she has had this in the past but never had it looked into or tested. History of atrial fibrillation, no coronary artery disease that she knows of. Last stress test was 1.5 years ago or so and was negative. CVD Risk Factors: Hypertension, Diabetes, Hypercholesterolemia. Negative for: Family History 1' </=55, Smoking - Past Medical History (1) Parkinsons disease Status: Chronic (2) COPD (chronic obstructive pulmonary disease) Status: Chronic (3) Diabetes mellitus type II, controlled Status: Chronic (4) History of pulmonary embolism Status: Chronic (5) Hyperlipidemia Status: Chronic (6) Hypertension Status: Chronic Past Medical History - Allergies and Home Meds Allergies/Adverse Reactions: Allergies nitrofurantoin macrocrystalline [From Macrodantin] Allergy (Verified 09/09/19 2 2:09) Hives rosuvastatin [From Crestor] Adverse Reaction (Severe, Verified 09/09/19 22:09) Muscle weakness colesevelam [From WelChol] Adverse Reaction (Intermediate, Verified 09/09/19 22:09) nausea nitrofurantoin [From Furadantin] Adverse Reaction (Intermediate, Verified 09/09/19 22:09) Unknown Primary Care Physician: Ramakrishna Rossi MD [Primary Care Provider] - Surgical History: - - Cholecystectomy, Lumbar Back Fusion, Belkys fundoplication Smoking Status: Never smoker Alcohol: None - Family History Maternal Family History: Family History (Last Reviewed 09/01/17 @ 11:[address] Rolando Gómez MD) Father CAD (coronary artery disease) Diabetes Myocardial infarction Alzheimers disease Mother Diabetes AAA (abdominal aortic aneurysm) Brother Multiple sclerosis Family History: Reports: Diabetes, - - Mother w/ history of DM, AAA. Paternal Family History: Family History (Last Reviewed 09/01/17 @ 11:[address] Rolando Gómez MD) Father CAD (coronary artery disease) Diabetes Myocardial infarction Alzheimers disease Mother Diabetes AAA (abdominal aortic aneurysm) Brother Multiple sclerosis Family History: Reports: - - Father w/ history of CAD, DM, MT/CAD, Dementia. Sibling Family History: Family History (Last Reviewed 09/01/17 @ 11:[address] Rolando Gómez MD) Father CAD (coronary artery disease) Diabetes Myocardial infarction Alzheimers disease Mother Diabetes AAA (abdominal aortic aneurysm) Brother Multiple sclerosis Family History: Reports: - - Brother w/ history of multiple sclerosis. Review of Systems General: Denies: Chills, Fever, Sweats Eyes: Denies: Visual changes - bilaterally, Diplopia ENT: Denies: Bilateral ear pain, Rhinorrhea, Sore throat Cardiovascular: Reports: Chest pain. Denies: Palpitations Respiratory: Reports: Dyspnea on exertion - chronic, unchanged. Denies: Dyspnea, Cough Gastrointestinal: Denies: Abdominal pain, Nausea, Vomiting, Diarrhea, Melena, Hematochezia Genitourinary: Denies: Dysuria, Hematuria, Frequency Musculoskeletal: Reports: Neck pain, Swelling - Both lower legs for 1-2 months or so, Extremity Pain. Denies: Back pain Skin: Denies: Rash, Wounds Neurological: Reports: Parasthesia. Denies: Headache, Weakness Physical Exam Vital Signs/Narrative: Vital Signs Temp Pulse Resp BP Pulse Ox 09/09/19 22:31 98 09/09/19 22:03 97.9 F 85 23 H 142/71 H 99 Inital Vital Signs reviewed: Yes General: Well nourished, Well developed, No Acute Distress Head: Normocephalic, Atraumatic Eyes: Perrl, EOMI ENT: Moist mucous membranes, No rhinorrhea Neck: Supple - With full range of motion, Nontender, No JVD Cardiovascular: Regular rate, Regular rhythm, No murmurs, - - Equal bilateral 2+/4 radial pulses Respiratory: No distress, CTA bilaterally, Chest nontender Abdomen: Soft, Nondistended, Normal bowel sounds, Tender - Mild diffuse upper abdominal tenderness. Negative for: Guarding, Rebound tenderness, Hunter's sign Back: Nontender, Normal Inspection. Negative for: CVA tenderness Extremities: Nontender, Edema - 1+ to knees, symmetric. Negative for: Calf Tenderness Skin: Normal color, No rash, No Trauma Neurological: Alert, Oriented x3, Cranial nerves II-XII grossly intact, Normal Strength, Normal Sensation, Normal Gait Psychological: Normal affect, Normal Mood Diagnostic/Tx/Re-eval Impressions Chest X-Ray 09/09/19 22:09 IMPRESSION: No acute findings. Electronically Signed: Shant Uday, at 22:56 EDT Tel , Service support , 09/09/19 22:09 Chest 1 View (Portable) [RAD] Stat Laboratory Results 09/09/19 09/09/19 22:10 22:10 WBC 9.2 RBC 4.39 Hgb 13.3 Hct 40.9 MCV 93.2 MCH 30.3 MCHC 32.5 RDW Std Deviation 43.8 RDW Coeff of Basilio 13.0 Plt Count 306 MPV 10.2 Immature Gran % (Auto) 0.400 Neut % (Auto) 68.2 Lymph % (Auto) 19.4 [place] % (Auto) 9.5 Eos % (Auto) 1.7 Baso % (Auto) 0.8 Absolute Neuts (auto) 6.2 Absolute Lymphs (auto) 1.78 Nucleated RBC % 0 Sodium 139 Potassium 3.7 Chloride 104 Carbon Dioxide 30.0 Anion Gap 5 BUN 26 H Creatinine 0.91 Estim Creat Clear Calc 47.33 Est GFR (MDRD) Af Amer 78 Est GFR (MDRD) Non-Af 64 BUN/Creatinine Ratio 28.7 H Glucose 245 H Calcium 9.5 Troponin I < 0.015 - Rhythm Strip Rhythm Strip: Sinus Rhythm Rate: 86 Ectopy: None - EKG Initial EKG Interpretation: Sinus Rhythm, No Acute Injury Pattern - normal EKG Treatment: GI Cocktail - no effect, but able to keep it and some fluids down ARLETH Risk: Age >/= 65, >/= 3RF Score: 2 - Medical Decision Making Work-up is unremarkable. She was able to pass some fluids so we tried a GI cocktail, did not help her discomfort at all. Her work-up is negative and she has been having discomfort for almost 6 hours by the time blood was drawn, with a normal EKG and I do not think this is likely to be cardiac in etiology. Given her symptoms my suspicion is that this is esophageal in etiology potentially spasm. Therefore, she was given a nitroglycerin to see if that helped, her pain was completely resolved and she felt much better. She wants to go home. I think that is reasonable, we discussed reasons to return, she is comfortable following up as an outpatient. ED Disposition - Plan for ED Patient: Disposition: Home or Assisted Living Diagnosis: Atypical chest pain Instructions: ED Chest Pain NonCardiac, ED Spasm Esophageal Referrals: Ramakrishna Rossi MD [Primary Care Provider] - 3-5 Days
[2019-09-09] MEDS: Mag Hydrox/Al Hydrox/Simeth 30 ML UDC PO (22:59)
[2019-09-09 23:01] VITALS: BP 130/66; PULSE 75; RESP 17; O2SAT 98
[2019-09-10] VITALS: BP 142/74; PULSE 69; RESP 16; O2SAT 99
[2019-09-10 01:27] VITALS: BP 153/81; PULSE 77
[2019-09-10] MEDS: Nitroglycerin SL (ED/IMG/CATH) 0.4 MG TABLET SUBLINGUAL (01:27)
[2019-09-10 01:30] VITALS: BP 122/65; PULSE 92; RESP 18; O2SAT 97
[2019-09-10 02:10] VITALS: BP 122/56; PULSE 88; RESP 20; O2SAT 97
== END 2019-09-10 02:25 | disposition home or self-care (01) ==
PROVIDERS: Emergency Provider Emergency Medicine; PCP Family Medicine
DX: R07.89 Other chest pain (principal); G20 Parkinson's disease; J44.9 Chronic obstructive pulmonary disease, unspecified; E11.9 Type 2 diabetes mellitus without complications; E78.5 Hyperlipidemia, unspecified; I10 Essential (primary) hypertension; I48.91 Unspecified atrial fibrillation; Z86.711 Personal history of pulmonary embolism; Z83.3 Family history of diabetes mellitus; Z88.1 Allergy status to other antibiotic agents; Z82.49 Family history of ischemic heart disease and other diseases of the circulatory system; Z90.49 Acquired absence of other specified parts of digestive tract
CPT/HCPCS: 71045; 80048; 84484; 85025; 93005; 99285; A4216

== ENCOUNTER 2019-12-06 15:27 | Inpatient (IN) | payer MEDICARE, SELFPAY ==
[2019-12-06] VITALS (7 sets, daily range): BP systolic 100–125; BP diastolic 57–71; PULSE 72–94; RESP 16–20; TEMP 36.2–36.6; O2SAT 95–98; BMI 35.2; BMI 36.0; BMI 35.9
--- NOTE | 2019-12-06 15:44 | EKG12_ITS ---
Test Reason : SIDE PAIN Blood Pressure : / mmHG Vent. Rate : 062 BPM Atrial Rate : 062 BPM P-R Int : 200 ms QRS Dur : 084 ms QT Int : 390 ms P-R-T Axes : 014 014 021 degrees QTc Int : 395 ms Normal sinus rhythm Normal ECG When compared with ECG of 06-DEC-2019 16:02, MANUAL COMPARISON REQUIRED, DATA IS UNCONFIRMED Confirmed by ESTER VELÁSQUEZ ([id number]), manager editorial CHAO TIERNEY ([id number]) on 12/12/2019 9:11:22 AM Referred By: HERNANDO Confirmed By:ESTER VELÁSQUEZ
--- NOTE | 2019-12-06 15:44 | RAD_ITS ---
STUDY: X-RAY CHEST REASON FOR EXAM: Female, 74 years old. Shortness of breath, low blood pressure. TECHNIQUE: Frontal view of the chest COMPARISON: Sep 09 2019 FINDINGS: The lungs are clear and expanded. There is no demonstrated pleural abnormality. Normal size heart. Normal mediastinum and roderick. Normal visualized pulmonary arteries. Normal visualized aortic arch and descending thoracic aorta. There is probably hiatal hernia. Normal visualized thoracic spine. Normal visualized ribs, clavicles, and shoulders. There is no demonstrated abnormality of the visualized soft tissue structures of the upper abdomen. RAD/Chest 1 View (Portable) IMPRESSION: Normal x-ray examination of the chest. Electronically Signed: Mainor Gutierrez, at 16:49 EDT Tel , Service support ,
--- NOTE | 2019-12-06 15:47 | ED.VISSUMM ---
- ER Visit Summary Date of Service: 12/06/19 Chief Complaint: Generalized weakness History of Present Illness: The patient is a 74 F presenting with generalized weakness. Patient states that this morning she started to feel very fatigued and exhausted. She took her blood pressure and it was 98/68. Her pulse ox was 88% on room air. She does not typically wear oxygen at home. She wears a CPAP at night to sleep. She states that she was too weak to ambulate. She called her primary care physician and was advised to come to the ED for evaluation. She denies recent fever. She has had a cough, nausea, vomiting. Denies new vision or speech changes. She has chronic paresthesias in both feet. Denies new numbness or tingling. Denies abdominal pain. Denies diarrhea or constipation. Denies known exposure to COVID. No recent travel. She is on Xarelto for history of PE. Physical Examination: Vitals are stable. Blood pressure 115/71. Patient is afebrile. Alert no acute distress. Pulse ox 95% on room air. HEENT exam is unremarkable. Neck is supple. Lungs are clear and equal bilaterally. Heart is regular rate and rhythm. Abdomen is soft nontender nondistended. No guarding or rebound Extremities are unremarkable. Skin is warm and dry. No focal neurologic deficit. Normal strength and sensation Remainder of exam is unremarkable. Emergency Department Course and Treatment: Patient was given IV fluids. EKG is sinus rhythm rate of 77 with no acute ischemic changes. CBC, chemistries unremarkable other than sodium 132, glucose 343, BUN 33. Urinalysis shows 25-50 white blood cells, positive bacteria. Troponin is negative. Lactic acid normal. Urine culture was sent. She was given Rocephin IV. With orthostatic vital signs her heart rate increased but her blood pressure remained stable. Chest x-ray shows no acute process. Discussed with the hospitalist for admission. Disposition: Admission Impression: UTI, generalized weakness This note was generated with [employer] dictation software. It may contain incorrect words, spelling, and punctuation that were not noted in review of the chart prior to signing ED Disposition - Plan for ED Patient: Disposition: Acute Care [facility]
[2019-12-06 16:05] LABS: Mucous, Urine 0 SEEN /hpf (<or=2+)
[2019-12-06 16:09] LABS: Absolute Neutrophil Count 7.3 X10^3/uL (2.0-7.7); Basophil# 0.05 X10^3/uL; Basophil% 0.5 % (0-1); Eosinophil# 0.11 X10^3/uL; Eosinophils% 1.2 % (0-5); Hematocrit 39.5 % (37-47); Hemoglobin 12.9 g/dL (12.0-15.0); Lymphocyte % 14.7 % (19-41); Mean Corp Hgb Conc 32.7 g/dL (32-36); Mean Corpuscular Hgb 30.1 pg (27.0-32.0); Mean Corpuscular Volume 92.1 fL (81-99); Monocyte# 0.62 X10^3/uL; Monocyte% 6.5 % (0-10); NRBC Flagged by Analyzer 0 % (0-5); Neutrophil # 7.31 X10^3/uL (2.7-7.7); Neutrophil % 76.7 % (47-70); Platelet Count 328 K/mm3 (150-450); RBC Distribution Width CV 13.2 % (11.6-14.6); RBC Distribution Width SD 44.7 fl (35.1-43.9); Red Blood Count 4.29 M/mm3 (4.2-5.4); White Blood Count 9.5 K/mm3 (4.4-11.0)
[2019-12-06 16:17] LABS: Anion Gap 7 (5-15); BUN 33 mg/dL (7-18); BUN/Creat Ratio 32.4 RATIO (10-20); Calcium,Total 9.6 mg/dL (8.5-10.1); Chloride 98 mmol/L (98-107); Creatinine, Serum 1.02 mg/dL (0.55-1.02); EST Glomerular Filtration Rate 56 mL/min (>60); Est Glom Filt Rate - Afr Amer 68 mL/min (>60); Estimated Creatinine Clearance 42.22 ml/min; Glucose 343 mg/dL (74-106); Potassium 4.4 mmol/L (3.5-5.1); Sodium Level 132 mmol/L (136-145)
[2019-12-06 16:22] LABS: Color, Urine Straw (Yellow); Glucose, Dipstick 1000 mg/dl (Normal); Ketone-Dipstick Negative (Negative); Leukocyte Esterase-Dipstick 500 /ul (Negative); Nitrite-Dipstick Negative (Negative); Occult Blood-Urine 10 /ul (Negative); Protein-Dipstick 15 mg/dl (Negative); Urine Bilirubin Dipstick Negative (Negative); Urine Clarity Cloudy (Clear); Urine Urobilinogen Normal (Normal)
[2019-12-06 16:38] LABS: Lactic Acid 1.3 mmol/L (0.4-1.9)
[2019-12-06 16:40] LABS: Bacteria 1+ /hpf (None Seen); Red Blood Cells-Urine 0-5 SEEN /hpf (0-5); Squamous Epithelial Cells - UA 10-25 SEEN /hpf (5-10); White Blood Cells 25-50 SEEN /hpf (0-5)
--- NOTE | 2019-12-06 17:21 | HP.PCM_ITS ---
<Boogie Wu - Last Filed: 12/06/19 17:21> Problem List (1) Dysphagia Status: Acute (2) UTI (urinary tract infection) Status: Acute (3) Hiatal hernia Status: Chronic (4) GERD (gastroesophageal reflux disease) Status: Chronic (5) Obesity (BMI 30.0-34.9) Status: Chronic (6) Parkinsons disease Status: Chronic (7) Pulmonary embolism Status: Chronic (8) Premature atrial contractions Status: Chronic (9) COPD (chronic obstructive pulmonary disease) Status: Chronic (10) Hypertension Status: Chronic (11) Hyperlipidemia Status: Chronic (12) Diabetes mellitus type II, controlled Status: Chronic (13) History of pulmonary embolism Status: Chronic History of Present Illness Date of Admission: 12/06/19 Chief Complaint: generalized weakness The patient is a 74 year old F with pmhx of Dmt2, Severe GERD, Hiatal hernia s/p belkys fundoplication, who presented to the ER with c/o generalized weakness and dysphagia. This morning she woke up feeling well, however at about 10 am she suddenly felt genearlized weakness and she was afraid that she would fall. She had breakfast, ate an egg and toast and was able to keep it down. She ate lunch and vomited it back up. She has vomited up dinner last night too. This has been increasingly more frequent over the past two months, in particular much more severe this week. She states she does not think she has had an actual meal in at least a week. She states her acid reflux is getting much worse. She states she has a severe acid reflux for which she follows Dr. Jannet Mar (?) at [facility]. She has an appointment with her Dec 18. The patient feels that the food is becoming stuck and unable to pass into her stomach and she throws it up. In the ER she was noted to have abnormal UA. The patient denies any urinary symptoms however she does note that she has had UTIs in the past and is prone to them as she is on Invokana for DM. She notes her diabetes has been much worse lately, that her A1C has worsened and that the lowest glucose she has seen recently was fasting in the AM with a glucose of about 240. She denies cough, fever, chills, diarrhea. [] Past Medical History Past Medical History (Chronic Problems): Chronic Problems (Last Updated 12/06/19 @ 17:[address] Kranthi Li MD) GERD (gastroesophageal reflux disease) (Chronic) Hiatal hernia (Chronic) Lumbar back pain (Chronic) Obesity (BMI 30.0-34.9) (Chronic) Parkinsons disease (Chronic) Pulmonary embolism (Chronic) Premature atrial contractions (Chronic) COPD (chronic obstructive pulmonary disease) (Chronic) Hypertension (Chronic) Hyperlipidemia (Chronic) Diabetes mellitus type II, controlled (Chronic) History of pulmonary embolism (Chronic) Medical History: Medical History (Last Updated 12/06/19 @ 17:[address] Kranthi Li MD) Premature atrial contractions (Chronic) I49.1 COPD (chronic obstructive pulmonary disease) (Chronic) J44.9 Hypertension (Chronic) I10 Hyperlipidemia (Chronic) E78.5 Diabetes mellitus type II, controlled (Chronic) E11.9 History of pulmonary embolism (Chronic) Z86.711 Asthma J45.909 Depression F32.9 Hypothyroidism E03.9 IBS (irritable bowel syndrome) K58.9 Kidney disease N28.9 Lung disease J98.4 Sleep apnea G47.30 Symptomatic bradycardia (Inactive) R00.1 Allergies nitrofurantoin macrocrystalline [From Macrodantin] Allergy (Verified 12/06/19 15:29) Hives rosuvastatin [From Crestor] Adverse Reaction (Severe, Verified 12/06/19 15:29) Muscle weakness colesevelam [From WelChol] Adverse Reaction (Intermediate, Verified 12/06/19 15:29) nausea nitrofurantoin [From Furadantin] Adverse Reaction (Intermediate, Verified 12/06/19 15:29) Unknown Home Medications: Ambulatory Orders Medication Instructions Recorded Albuterol Sulfate [Proventil Hfa] 2 puff IH Q6H PRN PRN 06/18/13 Fluticasone 110 Mcg [Flovent 110 2 puff INHALATION BID 06/18/13 Mcg] Levothyroxine [Synthroid] 125 mcg PO DAILY 06/18/13 Tramadol HCl 50 mg PO Q6H PRN PRN 06/18/13 glimepiride 2 mg tablet 2 mg PO QAM 06/19/17 omeprazole 20 mg capsule,delayed 20 mg PO QDAY 06/19/17 release oxybutynin chloride 10 mg 10 mg PO QDAY 06/19/17 tablet,extended release 24 hr Acetaminophen [Acetaminophen 8 1,300 mg PO Q6H PRN PRN 07/28/17 Hour] Calcium Carbonate [Calcium] 600 mg PO DAILY 07/28/17 Cholecalciferol (VIT D3) [Vitamin 5,000 unit PO DAILY 07/28/17 D3] Dicyclomine HCl 20 mg PO DAILY PRN PRN 07/28/17 Oxycodone [Oxyir] 5 mg PO Q6H PRN PRN 07/28/17 rivaroxaban 20 mg tablet 20 mg PO QDAY 30 Days #30 tab 09/01/17 simvastatin 20 mg tablet 20 mg PO QDAY 90 Days #90 tab 09/01/17 Canagliflozin [Invokana] 100 mg PO DAILY 12/06/19 Lisinopril/Hydrochlorothiazide 1 tab PO BID 12/06/19 [Lisinopril-Hctz 20-12.5 mg Tab] Pramipexole Di-HCl [Mirapex] 0.5 mg PO TID 12/06/19 Surgical History: Surgical History (Last Updated 12/06/19 @ 17:[address] Kranthi Li MD) History of Belkys fundoplication Z98.890 History of cholecystectomy Z98.890, Z90.49 History of lumbar fusion Onset Date: ~2012 Z98.1 L3-L4 07/2016 History of right hip replacement Onset Date: ~07/08/15 Z96.641 Hx of hernia repair Z98.890, Z87.19 Hx of lumbar discectomy Z98.890 L4-L5 Surgical History: - - Cholecystectomy, Lumbar Back Fusion, Belkys fundoplication Psychiatric History: No pertinent psych hx [employer] History: No pertinent [employer] history Smoking Status: Never smoker - *Family History Maternal Family History: Family History (Last Reviewed 09/01/17 @ 11:[address] Rolando Gómez MD) Father CAD (coronary artery disease) Diabetes Myocardial infarction Alzheimers disease Mother Diabetes AAA (abdominal aortic aneurysm) Brother Multiple sclerosis History Items: Diabetes, - - Mother w/ history of DM, AAA. Paternal Family History: Family History (Last Reviewed 09/01/17 @ 11:[address] Rolando Gómez MD) Father CAD (coronary artery disease) Diabetes Myocardial infarction Alzheimers disease Mother Diabetes AAA (abdominal aortic aneurysm) Brother Multiple sclerosis History Items: - - Father w/ history of CAD, DM, DE/CAD, Dementia. Sibling Family History: Family History (Last Reviewed 09/01/17 @ 11:[address] Rolando Gómez MD) Father CAD (coronary artery disease) Diabetes Myocardial infarction Alzheimers disease Mother Diabetes AAA (abdominal aortic aneurysm) Brother Multiple sclerosis History Items: - - Brother w/ history of multiple sclerosis. Review of Systems Constitutional: Reports: Weakness, Fatigue. Denies: Chills, Fever, Weight Change HEENT: Denies: Head Aches, Sinus Congestion, Sinus Drainage Cardiovascular: Denies: Chest Pain, Edema, Heaviness, Light Headedness, Palpitations, Syncope Respiratory: Denies: Cough, Shortness of Breath, Shortness of breath at rest, Shortness of breath upon exertion, Sputum production, Wheezing Gastrointestinal: Reports: Nausea, Vomiting, - - dyasphagia. Denies: Abdominal Pain Genitourinary: Denies: Dysuria, Frequency, Urgency Musculoskeletal: Denies: Joint Pain, Joint Tenderness Skin: Denies: Lesions, Rash, Wounds Neurological: Denies: Numbness, Tingling, Focal weakness Psychiatric: Denies: Anxiety, Depression, Homicidal Ideations, Suicidal Ideatio ns Hematologic/ Lymphatic: Denies: Easy Bruising, Easy Bleeding VTE Information - Inpt Only VTE Present on Admission: No VTE Mechan Device Prophylaxis: None VTE Pharm Prophylaxis ordered?: Yes Patient Problems: Active and Suspected Problems (Last Updated 12/06/19 @ 17:[address] Kranthi Li MD) UTI (urinary tract infection) (Acute) Dysphagia (Acute) - Physical Exam Vitals/I&O's: Vital Signs Temp Pulse Resp BP Pulse Ox 97.1 F L 75 20 H 100/57 L 95 12/06/19 15:27 12/06/19 16:22 12/06/19 15:27 12/06/19 16:22 12/06/19 15:27 Oxygen Delivery Method Room Air Weight: 212 lb Body Mass Index (BMI) 35.2 Intake and Output for Last 24 Hours 12/04/19 12/05/19 12/06/19 23:59 23:59 23:59 Intake Total 500 / 500 Balance 500 / 500 General: Alert, Oriented x3, Cooperative HEENT: Atraumatic, PERRLA, EOMI, Normocephalic Neck: Supple, No JVD, Negative Carotid Bruits Lungs: Clear to auscultation, Normal air movement Cardiovascular: Regular rate, No murmurs Abdomen: Bowel Sounds Present, Soft, Non Tender Extremities: No edema, Capillary Refill Less than 3 Seconds Skin: No rashes, No breakdown Musculoskeletal: No Tenderness to Palpation of Joints or Extremities Neurological: Cranial nerves II-XII grossly intact Psych/Mental Status: Normal Affect, Appropriate, Alert and oriented to time, place, person, mood and affect Laboratory Results 12/06/19 15:49: WBC 9.5, RBC 4.29, Hgb 12.9, Hct 39.5, MCV 92.1, MCH 30.1, MCHC 32.7, RDW Std Deviation 44.7 H, RDW Coeff of Basilio 13.2, Plt Count 328, MPV 10.0, Immature Gran % (Auto) 0.400, Neut % (Auto) 76.7 H, Lymph % (Auto) 14.7 L, Forest % (Auto) 6.5, Eos % (Auto) 1.2, Baso % (Auto) 0.5, Absolute Neuts (auto) 7.3, Absolute Lymphs (auto) 1.40, Nucleated RBC % 0 12/06/19 15:49: Sodium 132 L, Potassium 4.4, Chloride 98, Carbon Dioxide 27.0, Anion Gap 7, BUN 33 H, Creatinine 1.02, Estim Creat Clear Calc 42.22, Est GFR (MDRD) Af Amer 68, Est GFR (MDRD) Non-Af 56 L, BUN/Creatinine Ratio 32.4 H, Glucose 343 H, Calcium 9.6, Troponin I < 0.015 12/06/19 15:49: Lactic Acid 1.3 12/06/19 15:59: Urine Color Straw, Urine Clarity Cloudy, Urine pH 5.0, Ur Specific [place] 1.010, Urine Protein 15 H, Urine Glucose (UA) 1000 H, Urine Ketones Negative, Urine Occult Blood 10 H, Urine Nitrite Negative, Urine Bilirubin Negative, Urine Urobilinogen Normal, Ur Leukocyte Esterase 500 H, Urine RBC 0-5 SEEN, Urine WBC 25-50 SEEN, Ur Squamous Epith Cells 10-25 SEEN, Urine Bacteria 1+, Urine Mucus 0 SEEN Current Medications Sodium Chloride () 500 mls @ 999 mls/hr IV .Q31M JCARLOS Stop: 12/06/19 17:45 Ceftriaxone Sodium (Rocephin) 1 gm in 50 mls @ 100 mls/hr IV X1 ONE Stop: 12/06/19 17:31 Assessment/Plan All Active Problems (Last Updated 12/06/19 @ 17:[address] Kranthi Li MD) UTI (urinary tract infection) (Acute) Dysphagia (Acute) 1. Dysphagia - I suspect this in conjunction with her inability to have a significant amount of PO intake for the past week is likely the primary reason for her generalized weakness. Obtain speech therapy evals and a barium swallow in the AM. Start BID protonix. She states she has severe GERD and has had a hiatal hernia with belkys fundoplication. She follows Jannet Shafer at [facility] and has an appointment Dec 18. This is also interfering with her ability to keep her medications down. 2. UTI - abnormal UA. Prone to UTIs given uncontrolled DMt2 and use of Invokana. Denies urinary symptoms and has no fever/chills, negative lactate.. Will continue abx and await urine cultures. 3. Uncontrolled DMt2 with hyperglycemia - continue home meds + SSI. A1C 09/03. May need to initiate basal insulin. 4. Hypothyroidism - possibly contributing to generalized weakness. Last TSH was mildly elevated so will repeat this. 5. Hyponatremia - possibly 2/2 thiazide diuretic or hyperglycemia. DC HCTZ. Recheck in AM.BUN mildly elevated and with recent nausea vomiting and decreased PO intake suspect some dehydration. 6. Hx Parkinsons 7. hx PE - continue xarelto 8. Hx COPD - no exacerbation. prn albuterol/ 9. HLD - continue statin DVT ppx: xarelto This patient was seen by Boogie Wu PA-C under the supervision of Dr. Li. <Kranthi Li - Last Filed: 12/06/19 17:53> History of Present Illness The patient is a 74 year old F [] Past Medical History Medical History: Medical History (Last Updated 12/06/19 @ 17:[address] Kranthi Li MD) Premature atrial contractions (Chronic) I49.1 COPD (chronic obstructive pulmonary disease) (Chronic) J44.9 Hypertension (Chronic) I10 Hyperlipidemia (Chronic) E78.5 Diabetes mellitus type II, controlled (Chronic) E11.9 History of pulmonary embolism (Chronic) Z86.711 Asthma J45.909 Depression F32.9 Hypothyroidism E03.9 IBS (irritable bowel syndrome) K58.9 Kidney disease N28.9 Lung disease J98.4 Sleep apnea G47.30 Symptomatic bradycardia (Inactive) R00.1 Allergies nitrofurantoin macrocrystalline [From Macrodantin] Allergy (Verified 12/06/19 15:29) Hives rosuvastatin [From Crestor] Adverse Reaction (Severe, Verified 12/06/19 15:29) Muscle weakness colesevelam [From WelChol] Adverse Reaction (Intermediate, Verified 12/06/19 15:29) nausea nitrofurantoin [From Furadantin] Adverse Reaction (Intermediate, Verified 12/06/19 15:29) Unknown Surgical History: Surgical History (Last Updated 12/06/19 @ 17:[address] Kranthi Li MD) History of Belkys fundoplication Z98.890 History of cholecystectomy Z98.890, Z90.49 History of lumbar fusion Onset Date: ~2012 Z98.1 L3-L4 07/2016 History of right hip replacement Onset Date: ~07/08/15 Z96.641 Hx of hernia repair Z98.890, Z87.19 Hx of lumbar discectomy Z98.890 L4-L5 - *Family History Maternal Family History: Family History (Last Reviewed 09/01/17 @ 11:[address] Rolando Gómez MD) Father CAD (coronary artery disease) Diabetes Myocardial infarction Alzheimers disease Mother Diabetes AAA (abdominal aortic aneurysm) Brother Multiple sclerosis Paternal Family History: Family History (Last Reviewed 09/01/17 @ 11:[address] Rolando Gómez MD) Father CAD (coronary artery disease) Diabetes Myocardial infarction Alzheimers disease Mother Diabetes AAA (abdominal aortic aneurysm) Brother Multiple sclerosis Sibling Family History: Family History (Last Reviewed 09/01/17 @ 11:[address] Rolando Gómez MD) Father CAD (coronary artery disease) Diabetes Myocardial infarction Alzheimers disease Mother Diabetes AAA (abdominal aortic aneurysm) Brother Multiple sclerosis - Physical Exam Vitals/I&O's: Vital Signs Temp Pulse Resp BP Pulse Ox 97.1 F L 79 19 H 105/69 95 12/06/19 15:27 12/06/19 17:27 12/06/19 17:27 12/06/19 17:27 12/06/19 17:27 Oxygen Delivery Method Room Air Weight: 212 lb Body Mass Index (BMI) 35.2 Intake and Output for Last 24 Hours 12/04/19 12/05/19 12/06/19 23:59 23:59 23:59 Intake Total 500 / 500 Balance 500 / 500 Laboratory Results 12/06/19 15:49: WBC 9.5, RBC 4.29, Hgb 12.9, Hct 39.5, MCV 92.1, MCH 30.1, MCHC 32.7, RDW Std Deviation 44.7 H, RDW Coeff of Basilio 13.2, Plt Count 328, MPV 10.0, Immature Gran % (Auto) 0.400, Neut % (Auto) 76.7 H, Lymph % (Auto) 14.7 L, [place] % (Auto) 6.5, Eos % (Auto) 1.2, Baso % (Auto) 0.5, Absolute Neuts (auto) 7.3, Absolute Lymphs (auto) 1.40, Nucleated RBC % 0 12/06/19 15:49: Sodium 132 L, Potassium 4.4, Chloride 98, Carbon Dioxide 27.0, Anion Gap 7, BUN 33 H, Creatinine 1.02, Estim Creat Clear Calc 42.22, Est GFR (MDRD) Af Amer 68, Est GFR (MDRD) Non-Af 56 L, BUN/Creatinine Ratio 32.4 H, Glucose 343 H, Calcium 9.6, Troponin I < 0.015 12/06/19 15:49: Lactic Acid 1.3 12/06/19 15:59: Urine Color Straw, Urine Clarity Cloudy, Urine pH 5.0, Ur Specific [place] 1.010, Urine Protein 15 H, Urine Glucose (UA) 1000 H, Urine Ketones Negative, Urine Occult Blood 10 H, Urine Nitrite Negative, Urine Bilirubin Negative, Urine Urobilinogen Normal, Ur Leukocyte Esterase 500 H, Urine RBC 0-5 SEEN, Urine WBC 25-50 SEEN, Ur Squamous Epith Cells 10-25 SEEN, Urine Bacteria 1+, Urine Mucus 0 SEEN Assessment/Plan Hospitalist note: I am seeing this patient in conjunction with Boogie Wu. I independently seen and examined the patient. History and physical, laboratory data and imaging studies reviewed and I concur with above admission and treatment plan. Patient presented to the emergency room because of generalized weakness. Her symptom h as been going on for several weeks up to 2 months, being weak, fatigued, all over. His other complaint today was difficulty swallowing. She states that the food and liquids stuck in the middle of her chest, having difficulty bringing it down, without any pain and this has been going on for several months. She mentioned that she has been throwing up on occasions and she threw up most of her medications. She reported about 10 pounds weight loss over the last 3 to 4 months. She denied fever or chills. She denied abdominal pain, constipation or diarrhea. She denied urinary symptoms. She had modified barium swallow on December, that was abnormal and she was referred for work-up as outpatient with upper EGD. Patient has an appointment with a utilization review rn on December 19, 2019. In the emergency department, her vital signs were stable, was afebrile. Her routine blood work was remarkable for sodium of 132, BUN is 33, otherwise normal. Blood glucose was 343. Lactic acid was normal. Troponin was negative. Urinalysis revealed cloudy urine, 500 leukocyte esterase, there was 10-25 WBCs and 1+ bacteria. Chest x-ray showed no acute infiltrate or consolidation, revealed wide esophagus, tortuous. She is being admitted for acute cystitis and dysphagia for treatment and evaluation. - Physical Exam General: Alert, Oriented x3, Cooperative, No apparent distress. HEENT: Atraumatic, PERRLA, EOMI. Neck: Supple, No JVD, Negative Carotid Bruits, Trachea Midline, Thyroid Normal. Lungs: Clear to auscultation, Normal air movement, No rhonchi, No wheeze, No rales. Cardiovascular: Regular rate, Regular Rhythm, Normal S1, Normal S2, PMI Normal. Abdomen: Bowel Sounds Present, Soft, Non Tender, Non-Distended, No Hepato- splenomegaly. Extremities: No clubbing, No cyanosis, No edema Skin: No rashes, No breakdown Neurological: Cranial nerves are intact, neuro grossly intact Vital Signs are stable. Assessment and plan: #1 painless dysphagia: In context of history of severe GERD and hiatal hernia. This has been going on for several months. She had modified barium swallow on December, as mentioned above. Patient has been having issues eating and drinking as well as taking her medications, she has been throwing up. This explains why her blood sugar has been uncontrolled and her TSH was elevated. Plan: Admit to MedSurg, gentle IV fluids for hydration, Protonix twice daily, Mylanta as needed, barium swallow with dual contrast, check TSH, LFT, pro time and INR, repeat CBC and BMP tomorrow morning. If the barium swallow came back abnormal, will need to do more the testing including CT chest. #2 acute cystitis: Start IV Rocephin, urine culture. No evidence of sepsis or severe sepsis. #3 uncontrolled type 2 diabetes mellitus: Likely due to inability to keep her medications down. Hemoglobin A1c was 9% on Aug, 2019. Plan: ADA diet, Accu- Cheks, sliding scale, continue home medications, check hemoglobin A1c. #4 hypothyroidism: Most recent TSH was elevated at 4.6 which was on July,. This is could be contributing to her symptoms. Will check TSH again. #5 other chronic medical problems: Stable, continue current medications as above. This note was generated with [employer] dictation software. It may contain incorrect words, spelling, and punctuation that were not noted in checking the note before signing. Inpatient E&M: [id number] Init Hosp L2
[2019-12-06] MEDS: Ceftriaxone 1 GM/50 ML BAG IV (17:36)
--- NOTE | 2019-12-06 19:11 | CPS ---
Patient to bring in Home CPAP 12/06/19.
[2019-12-06 19:34] LABS: Prothrombin Time (Protime)PT. 12.5 SECONDS (11.7-14.9)
[2019-12-06 19:51] LABS: AST(SGOT) 14 U/L (15-37); Alanine Aminotransfer ALT/SGPT 28 U/L (13-56); Albumin, Serum 3.7 g/dL (3.2-5.0); Alkaline Phosphatase 161 U/L (45-117); Bilirubin, Direct 0.14 mg/dL (0.00-0.30); Globulin 4.1 g/dL (2.2-4.2); Protein, Total 7.8 g/dL (6.4-8.2); Thyroid Stim Hormone (TSH) 2.81 uIU/mL (0.358-3.74)
[2019-12-06] MEDS: 0.9% Normal Saline 1,000 ML 75 ML IV (19:55)
[2019-12-06] MEDS: Acetaminophen 325 MG Tablet 650 MG PO (20:39)
[2019-12-06 21:17] LABS: Hemoglobin A1c 11.9 % (3.8-5.6)
--- NOTE | 2019-12-06 21:32 | NURSING ---
Called respiratory therapy to advise them that pt's bipap machine was just delivered and she needs assistance to set it up.
[2019-12-06] MEDS: Atorvastatin Calcium 10 MG Tablet PO (21:53)
[2019-12-06] MEDS: Pantoprazole Sodium 40 MG Tablet PO (21:53)
[2019-12-06] MEDS: Pramipexole Di-HCl 0.5 MG Tablet PO (21:53)
[2019-12-06] MEDS: Insulin Lispro 100 UNIT/ML INSULN.PEN SC (21:56)
[2019-12-06] MEDS: traMADol 50 MG Tablet PO (21:56)
[2019-12-06 22:05] LABS: Bedside Glucose 287 mg/dL (70-110)
[2019-12-07] VITALS (8 sets, daily range): BP systolic 112–134; BP diastolic 66–77; PULSE 70–86; RESP 16–18; TEMP 36.3–36.7; O2SAT 96–98
[2019-12-07] MEDS: Levothyroxine 125 MCG Tablet PO (06:45)
[2019-12-07] MEDS: Insulin Lispro 100 UNIT/ML INSULN.PEN SC ×4 (06:46→21:56)
[2019-12-07] MEDS: Pramipexole Di-HCl 0.5 MG Tablet PO ×3 (06:46→21:55)
[2019-12-07 06:55] LABS: Bedside Glucose 182 mg/dL (70-110)
[2019-12-07 07:50] LABS: Absolute Lymphocyte Count 1.74 X10^3/uL (0.83-4.51); Absolute Neutrophil Count 7.5 X10^3/uL (2.0-7.7); Basophil# 0.06 X10^3/uL; Basophil% 0.6 % (0-1); Eosinophil# 0.18 X10^3/uL; Eosinophils% 1.8 % (0-5); Hematocrit 39.5 % (37-47); Hemoglobin 12.5 g/dL (12.0-15.0); Lymphocyte # 1.74 X10^3/ul (4.0); Mean Corp Hgb Conc 31.6 g/dL (32-36); Mean Corpuscular Hgb 30.1 pg (27.0-32.0); Mean Corpuscular Volume 95.2 fL (81-99); Monocyte# 0.69 X10^3/uL; Monocyte% 6.7 % (0-10); NRBC Flagged by Analyzer 0 % (0-5); Neutrophil # 7.49 X10^3/uL (2.7-7.7); Neutrophil % 73.2 % (47-70); Platelet Count 301 K/mm3 (150-450); RBC Distribution Width CV 13.5 % (11.6-14.6); RBC Distribution Width SD 47.1 fl (35.1-43.9); Red Blood Count 4.15 M/mm3 (4.2-5.4); White Blood Count 10.2 K/mm3 (4.4-11.0)
[2019-12-07 07:58] LABS: Anion Gap 6 (5-15); BUN 23 mg/dL (7-18); BUN/Creat Ratio 25.2 RATIO (10-20); Calcium,Total 8.8 mg/dL (8.5-10.1); Chloride 100 mmol/L (98-107); Creatinine, Serum 0.91 mg/dL (0.55-1.02); EST Glomerular Filtration Rate 63 mL/min (>60); Est Glom Filt Rate - Afr Amer 77 mL/min (>60); Estimated Creatinine Clearance 47.33 ml/min; Glucose 188 mg/dL (74-106); Potassium 4.4 mmol/L (3.5-5.1); Sodium Level 134 mmol/L (136-145)
[2019-12-07] MEDS: Glucerna Shake 120 ML LIQUID PO ×3 (09:11→17:32)
[2019-12-07] MEDS: 0.9% Normal Saline 1,000 ML 75 ML IV ×2 (09:12→22:02)
[2019-12-07] MEDS: Tolterodine Tartrate 2 MG CAP.SA PO (09:13)
[2019-12-07] MEDS: Pantoprazole Sodium 40 MG Tablet PO ×2 (09:13→21:56)
[2019-12-07] MEDS: Glimepiride 2 MG Tablet PO (09:13)
[2019-12-07] MEDS: hydroCHLOROthiazide 12.5mg 12.5 MG PO (09:14)
[2019-12-07] MEDS: Lisinopril 20 MG Tablet PO (09:15)
[2019-12-07] MEDS: Rivaroxaban 20 MG Tablet PO (09:15)
[2019-12-07] MEDS: Ceftriaxone 1 GM/50 ML BAG IV (09:17)
[2019-12-07 11:55] LABS: Bedside Glucose 289 mg/dL (70-110)
--- NOTE | 2019-12-07 12:00 | PCM.PN.HOSP ---
<Boogie Wu - Last Filed: 12/07/19 12:00> Patient Problems: Active and Suspected Problems (Last Updated 12/06/19 @ 17:[address] Kranthi Li MD) UTI (urinary tract infection) (Acute) Dysphagia (Acute) Reason for Visit: Pt ate omelet, toast, and cranberry juice this AM and feels that is is stuck in her throat. She had not vomited it up at the time of my interview. She has no cough, sob, fever,chills, dysuria, frequency, or incontinence of urine. No BM since admit. + Flatus. No Abdominal pain. Vitals/I&O's: Vital Signs Temp Pulse Resp BP Pulse Ox 98.0 F 86 18 134/77 H 96 12/07/19 09:08 12/07/19 09:08 12/07/19 09:08 12/07/19 09:08 12/07/19 09:08 Oxygen Delivery Method Room Air Weight: 216 lb 0.848 oz Body Mass Index (BMI) 35.9 Intake and Output for Last 24 Hours 12/05/19 12/06/19 12/07/19 23:59 23:59 23:59 Intake Total 1050.0 / 1550.0 1752.50 / 1752.50 Output Total 900 / 900 Balance 1050.0 / 1050.0 852.50 / 852.50 General: Alert, Oriented x3, Cooperative HEENT: Atraumatic, PERRLA, EOMI, Normocephalic Neck: Supple, No JVD, Negative Carotid Bruits Lungs: Clear to auscultation, Normal air movement Cardiovascular: Regular rate, No murmurs Abdomen: Bowel Sounds Present, Soft, Non Tender Extremities: No edema, Capillary Refill Less than 3 Seconds Skin: No rashes, No breakdown Musculoskeletal: No Tenderness to Palpation of Joints or Extremities Neurological: Cranial nerves II-XII grossly intact Psych/Mental Status: Normal Affect, Appropriate, Alert and oriented to time, place, person, mood and affect Laboratory Results 12/06/19 15:49: WBC 9.5, RBC 4.29, Hgb 12.9, Hct 39.5, MCV 92.1, MCH 30.1, MCHC 32.7, RDW Std Deviation 44.7 H, RDW Coeff of Basilio 13.2, Plt Count 328, MPV 10.0, Immature Gran % (Auto) 0.400, Neut % (Auto) 76.7 H, Lymph % (Auto) 14.7 L, Levy % (Auto) 6.5, Eos % (Auto) 1.2, Baso % (Auto) 0.5, Absolute Neuts (auto) 7.3, Absolute Lymphs (auto) 1.40, Nucleated RBC % 0 12/06/19 15:49: Sodium 132 L, Potassium 4.4, Chloride 98, Carbon Dioxide 27.0, Anion Gap 7, BUN 33 H, Creatinine 1.02, Estim Creat Clear Calc 42.22, Est GFR (MDRD) Af Amer 68, Est GFR (MDRD) Non-Af 56 L, BUN/Creatinine Ratio 32.4 H, Glucose 343 H, Calcium 9.6, Troponin I < 0.015 12/06/19 15:49: Lactic Acid 1.3 12/06/19 15:49: PT 12.5, INR 1.0 12/06/19 15:49: Total Bilirubin 0.40, Direct Bilirubin 0.14, AST 14 L, ALT 28, Alkaline Phosphatase 161 H, Total Protein 7.8, Albumin 3.7, Globulin 4.1, TSH 2.81 12/06/19 15:49: Hemoglobin A1c 11.9 H 12/06/19 15:59: Urine Color Straw, Urine Clarity Cloudy, Urine pH 5.0, Ur Specific [place] 1.010, Urine Protein 15 H, Urine Glucose (UA) 1000 H, Urine Ketones Negative, Urine Occult Blood 10 H, Urine Nitrite Negative, Urine Bilirubin Negative, Urine Urobilinogen Normal, Ur Leukocyte Esterase 500 H, Urine RBC 0-5 SEEN, Urine WBC 25-50 SEEN, Ur Squamous Epith Cells 10-25 SEEN, Urine Bacteria 1+, Urine Mucus 0 SEEN 12/06/19 21:52: POC Glucose 287 H 12/07/19 06:45: POC Glucose 182 H 12/07/19 07:14: WBC 10.2, RBC 4.15 L, Hgb 12.5, Hct 39.5, MCV 95.2, MCH 30.1, MCHC 31.6 L, RDW Std Deviation 47.1 H, RDW Coeff of Basilio 13.5, Plt Count 301, MPV 10.0, Immature Gran % (Auto) 0.700, Neut % (Auto) 73.2 H, Lymph % (Auto) 17.0 L, Levy % (Auto) 6.7, Eos % (Auto) 1.8, Baso % (Auto) 0.6, Absolute Neuts (auto) 7.5, Absolute Lymphs (auto) 1.74, Nucleated RBC % 0 12/07/19 07:14: Sodium 134 L, Potassium 4.4, Chloride 100, Carbon Dioxide 28.0, Anion Gap 6, BUN 23 H, Creatinine 0.91, Estim Creat Clear Calc 47.33, Est GFR (MDRD) Af Amer 77, Est GFR (MDRD) Non-Af 63, BUN/Creatinine Ratio 25.2 H, Glucose 188 H, Calcium 8.8 12/07/19 11:44: POC Glucose 289 H Current Medications Acetaminophen (Tylenol) 650 mg PO Q6H PRN PRN PRN Reason: Pain Score 1-10/Temp > 100.7 F Last Admin: 12/06/19 20:39 Dose: 650 mg Documented by: Al Hydroxide/Mg Hydroxide (Mylanta Ii) 30 ml PO Q6H PRN PRN PRN Reason: Heartburn, indigestion. Albuterol Sulfate (Ventolin Aerosols) 2.5 mg INHALATION Q4H PRN PRN PRN Reason: Shortness of breath, wheezing Atorvastatin Calcium (Lipitor) 10 mg PO QHS [facility] Last Admin: 12/06/19 21:53 Dose: 10 mg Documented by: Glimepiride (Amaryl) 2 mg PO QAM@0800 [facility] Last Admin: 12/07/19 09:13 Dose: 2 mg Documented by: Hydrochlorothiazide () 12.5 mg PO DAILY [facility] Last Admin: 12/07/19 09:14 Dose: 12.5 mg Documented by: Sodium Chloride () 1,000 mls @ 75 mls/hr IV .[id number] [facility] Last Infusion: 12/07/19 09:47 Dose: 75 mls/hr Documented by: Ceftriaxone Sodium (Rocephin) 1 gm in 50 mls @ 100 mls/hr IV Q24 [facility] Last Infusion: 12/07/19 09:47 Dose: Infused Documented by: Sodium Chloride () 250 mls @ 15 mls/hr IV .[id number] PRN PRN Reason: Saline Flush Insulin Human Lispro (Humalog Kwikpen (Bkc)) 0 unit SC ACHS [facility]; Protocol Last Admin: 12/07/19 11:47 Dose: 4 u Documented by: Levothyroxine Sodium (Synthroid) 125 mcg PO DAILY@0600 [facility] Last Admin: 12/07/19 06:45 Dose: 125 mcg Documented by: Lisinopril (Zestril) 20 mg PO DAILY [facility] Last Admin: 12/07/19 09:15 Dose: 20 mg Documented by: Nutritional Formula (Lactose Free) (Glucerna Shake) 120 ml PO 4X/DAY [facility] Last Admin: 12/07/19 09:11 Dose: 120 ml Documented by: Ondansetron HCl (Zofran) 4 mg IV Q8H PRN PRN PRN Reason: NAUSEA/VOMITING Oxycodone HCl (Oxyir) 5 mg PO Q6H PRN PRN PRN Reason: Pain Score 4-10/10 Pantoprazole Sodium (Protonix) 40 mg PO BID [facility] Last Admin: 12/07/19 09:13 Dose: 40 mg Documented by: Pramipexole Dihydrochloride (Mirapex) 0.5 mg PO TID [facility] Last Admin: 12/07/19 06:46 Dose: 0.5 mg Documented by: [facility] ([facility]) [facility] Last Admin: 12/07/19 09:15 Dose: 20 mg Documented by: Senna/Docusate Sodium (Senokot-S, Oralia-Colace) 2 tablet PO BID PRN PRN PRN Reason: Constipation Sodium Chloride () 10 - 40 ml IV UD PRN PRN Reason: SALINE FLUSH Tolterodine Tartrate (Detrol La) 2 mg PO DAILY [facility] Last Admin: 12/07/19 09:13 Dose: 2 mg Documented by: Tramadol HCl (Ultram) 50 mg PO Q6H PRN PRN PRN Reason: PAIN 1-3/10 Last Admin: 12/06/19 21:56 Dose: 50 mg Documented by: Zolpidem Tartrate (Ambien (Generic)) 5 mg PO QHS PRN PRN PRN Reason: INSOMNIA STROKE Vital Signs/Narrative: Vital Signs Temp Pulse Resp BP Pulse Ox 12/07/19 09:08 98.0 F 86 18 134/77 H 96 12/07/19 08:57 75 Medical Necessity - Tobacco Use Smoking Status: Never smoker Assessment/Plan All Active Problems (Last Updated 12/06/19 @ 17:[address] Kranthi Li MD) UTI (urinary tract infection) (Acute) Dysphagia (Acute) 1. Dysphagia - I suspect this in conjunction with her inability to have a significant amount of PO intake for the past week is likely the primary reason for her generalized weakness. Obtain speech therapy evals and a barium swallow. Continue BID protonix. She states she has severe GERD and has had a hiatal hernia with belkys fundoplication. She follows Jannet Shafer at [facility] and has an appointment Dec 18. This is also interfering with her ability to keep her medications down. -Barium swallow monday. 2. UTI - abnormal UA. Prone to UTIs given uncontrolled DMt2 and use of Invokana. Denies urinary symptoms and has no fever/chills, no leukocytosis, negative lactate. Will continue abx and await urine cultures (pending) 3. Uncontrolled DMt2 with hyperglycemia - continue home meds + SSI. A1C 11.9. Start basal insulin tonight. Pt had been vomiting up home meds. 4. Hypothyroidism - tsh normal. 5. Hyponatremia - possibly 2/2 thiazide diuretic and/or hyperglycemia. DC HCTZ. Recheck in AM.BUN mildly elevated and with recent nausea vomiting and decreased PO intake suspect some dehydration. 6. Hx Parkinsons 7. hx PE - continue xarelto 8. Hx COPD - no exacerbation. prn albuterol 9. HLD - continue statin DVT ppx: xarelto This patient was seen by Boogie Wu PA-C under the supervision of Dr. Osorio <Paola Osorio - Last Filed: 12/07/19 13:03> Vitals/I&O's: Vital Signs Temp Pulse Resp BP Pulse Ox 98.0 F 86 18 134/77 H 96 12/07/19 09:08 12/07/19 09:08 12/07/19 09:08 12/07/19 09:08 12/07/19 09:08 Oxygen Delivery Method Room Air Weight: 216 lb 0.848 oz Body Mass Index (BMI) 35.9 Intake and Output for Last 24 Hours 12/05/19 12/06/19 12/07/19 23:59 23:59 23:59 Intake Total 1050.0 / 1550.0 1752.50 / 1752.50 Output Total 900 / 900 Balance 1050.0 / 1050.0 852.50 / 852.50 Laboratory Results 12/06/19 15:49: WBC 9.5, RBC 4.29, Hgb 12.9, Hct 39.5, MCV 92.1, MCH 30.1, MCHC 32.7, RDW Std Deviation 44.7 H, RDW Coeff of Basilio 13.2, Plt Count 328, MPV 10.0, Immature Gran % (Auto) 0.400, Neut % (Auto) 76.7 H, Lymph % (Auto) 14.7 L, Levy % (Auto) 6.5, Eos % (Auto) 1.2, Baso % (Auto) 0.5, Absolute Neuts (auto) 7.3, Absolute Lymphs (auto) 1.40, Nucleated RBC % 0 12/06/19 15:49: Sodium 132 L, Potassium 4.4, Chloride 98, Carbon Dioxide 27.0, Anion Gap 7, BUN 33 H, Creatinine 1.02, Estim Creat Clear Calc 42.22, Est GFR (MDRD) Af Amer 68, Est GFR (MDRD) Non-Af 56 L, BUN/Creatinine Ratio 32.4 H, Glucose 343 H, Calcium 9.6, Troponin I < 0.015 12/06/19 15:49: Lactic Acid 1.3 12/06/19 15:49: PT 12.5, INR 1.0 12/06/19 15:49: Total Bilirubin 0.40, Direct Bilirubin 0.14, AST 14 L, ALT 28, Alkaline Phosphatase 161 H, Total Protein 7.8, Albumin 3.7, Globulin 4.1, TSH 2.81 12/06/19 15:49: Hemoglobin A1c 11.9 H 12/06/19 15:59: Urine Color Straw, Urine Clarity Cloudy, Urine pH 5.0, Ur Specific [place] 1.010, Urine Protein 15 H, Urine Glucose (UA) 1000 H, Urine Ketones Negative, Urine Occult Blood 10 H, Urine Nitrite Negative, Urine Bilirubin Negative, Urine Urobilinogen Normal, Ur Leukocyte Esterase 500 H, Urine RBC 0-5 SEEN, Urine WBC 25-50 SEEN, Ur Squamous Epith Cells 10-25 SEEN, Urine Bacteria 1+, Urine Mucus 0 SEEN 12/06/19 21:52: POC Glucose 287 H 12/07/19 06:45: POC Glucose 182 H 12/07/19 07:14: WBC 10.2, RBC 4.15 L, Hgb 12.5, Hct 39.5, MCV 95.2, MCH 30.1, MCHC 31.6 L, RDW Std Deviation 47.1 H, RDW Coeff of Basilio 13.5, Plt Count 301, MPV 10.0, Immature Gran % (Auto) 0.700, Neut % (Auto) 73.2 H, Lymph % (Auto) 17.0 L, Levy % (Auto) 6.7, Eos % (Auto) 1.8, Baso % (Auto) 0.6, Absolute Neuts (auto) 7.5, Absolute Lymphs (auto) 1.74, Nucleated RBC % 0 12/07/19 07:14: Sodium 134 L, Potassium 4.4, Chloride 100, Carbon Dioxide 28.0, Anion Gap 6, BUN 23 H, Creatinine 0.91, Estim Creat Clear Calc 47.33, Est GFR (MDRD) Af Amer 77, Est GFR (MDRD) Non-Af 63, BUN/Creatinine Ratio 25.2 H, Glucose 188 H, Calcium 8.8 12/07/19 11:44: POC Glucose 289 H Current Medications Acetaminophen (Tylenol) 650 mg PO Q6H PRN PRN PRN Reason: Pain Score 1-10/Temp > 100.7 F Last Admin: 12/06/19 20:39 Dose: 650 mg Documented by: Al Hydroxide/Mg Hydroxide (Mylanta Ii) 30 ml PO Q6H PRN PRN PRN Reason: Heartburn, indigestion. Albuterol Sulfate (Ventolin Aerosols) 2.5 mg INHALATION Q4H PRN PRN PRN Reason: Shortness of breath, wheezing Atorvastatin Calcium (Lipitor) 10 mg PO QHS [facility] Last Admin: 12/06/19 21:53 Dose: 10 mg Documented by: Glimepiride (Amaryl) 2 mg PO QAM@0800 [facility] Last Admin: 12/07/19 09:13 Dose: 2 mg Documented by: Sodium Chloride () 1,000 mls @ 75 mls/hr IV .[id number] [facility] Last Infusion: 12/07/19 09:47 Dose: 75 mls/hr Documented by: Ceftriaxone Sodium (Rocephin) 1 gm in 50 mls @ 100 mls/hr IV Q24 [facility] Last Infusion: 12/07/19 09:47 Dose: Infused Documented by: Sodium Chloride () 250 mls @ 15 mls/hr IV .[id number] PRN PRN Reason: Saline Flush Insulin Glargine (Lantus ([facility])) 10 units SC QHS [facility] Insulin Human Lispro (Humalog Kwikpen ([facility])) 0 unit SC ACHS [facility]; Protocol Last Admin: 12/07/19 11:47 Dose: 4 u Documented by: Levothyroxine Sodium (Synthroid) 125 mcg PO DAILY@0600 [facility] Last Admin: 12/07/19 06:45 Dose: 125 mcg Documented by: Lisinopril (Zestril) 20 mg PO DAILY [facility] Last Admin: 12/07/19 09:15 Dose: 20 mg Documented by: Nutritional Formula (Lactose Free) (Glucerna Shake) 120 ml PO 4X/DAY [facility] Last Admin: 12/07/19 09:11 Dose: 120 ml Documented by: Ondansetron HCl (Zofran) 4 mg IV Q8H PRN PRN PRN Reason: NAUSEA/VOMITING Oxycodone HCl (Oxyir) 5 mg PO Q6H PRN PRN PRN Reason: Pain Score 4-10/10 Pantoprazole Sodium (Protonix) 40 mg PO BID [facility] Last Admin: 12/07/19 09:13 Dose: 40 mg Documented by: Pramipexole Dihydrochloride (Mirapex) 0.5 mg PO TID [facility] Last Admin: 12/07/19 06:46 Dose: 0.5 mg Documented by: Rivaroxaban ([facility]to) [facility] Last Admin: 12/07/19 09:15 Dose: 20 mg Documented by: Senna/Docusate Sodium (Senokot-S, Oralia-Colace) 2 tablet PO BID PRN PRN PRN Reason: Constipation Sodium Chloride () 10 - 40 ml IV UD PRN PRN Reason: SALINE FLUSH Tolterodine Tartrate (Detrol La) 2 mg PO DAILY [facility] Last Admin: 12/07/19 09:13 Dose: 2 mg Documented by: Tramadol HCl (Ultram) 50 mg PO Q6H PRN PRN PRN Reason: PAIN 1-06/24 Last Admin: 12/06/19 21:56 Dose: 50 mg Documented by: Zolpidem Tartrate (Ambien (Generic)) 5 mg PO QHS PRN PRN PRN Reason: INSOMNIA STROKE Vital Signs/Narrative: Vital Signs Temp Pulse Resp BP Pulse Ox 12/07/19 09:08 98.0 F 86 18 134/77 H 96 12/07/19 08:57 75 Assessment/Plan Patient seen by Boogie Wu PA-C under my supervision. Patient seen and examined this morning. She still complains of feeling like food is stuck in her throat and chest when she swallows. She has been vomiting at home but has not vomited since she has been here. She had a Belkys fundoplication about 15 years ago for severe reflux. She still follows up at [facility]. She states is unable to keep her medications down because of vomiting. Her A1c is 11.9 and she states it was usually well controlled but now because she is not able to keep down her diabetes medication, her sugars have been running very high. Review systems otherwise negative. O/E: Vital Signs Temp Pulse Resp BP Pulse Ox 98.0 F 86 18 134/77 H 96 12/07/19 09:08 12/07/19 09:08 12/07/19 09:08 12/07/19 09:08 12/07/19 09:08 General: Alert, Oriented x3, Cooperative HEENT: Atraumatic, PERRLA, EOMI, Normocephalic Neck: Supple, No JVD, Negative Carotid Bruits Lungs: Clear to auscultation, Normal air movement Cardiovascular: Regular rate, No murmurs Abdomen: Bowel Sounds Present, Soft, Non Tender Extremities: No edema, Capillary Refill Less than 3 Seconds Skin: No rashes, No breakdown Musculoskeletal: No Tenderness to Palpation of Joints or Extremities Neurological: Cranial nerves II-XII grossly intact Psych/Mental Status: Normal Affect, Appropriate, Alert and oriented to time, place, person, mood and affect Plan is to have a barium swallow on Uri, to evaluate for stricture or any other pathology. Will set up a consult and general surgery based on results of barium swallow. Dysphagia may be due to a stricture and also possibly gastroparesis in light of markedly elevated A1c. Continue insulin sliding scale. Start on basal long-acting insulin. On antibiotics for UTI. Urine cultures pending. Will hold Xarelto for now just in case she needs some surgical intervention and evaluation based on results of barium swallow. Start on therapeutic lovenox due to history of 2 PEs, and her being on therapeutic xarelto usp. Rest as per Boogie Wu PA-C's notes which I reviewed and endorsed. Inpatient E&M: [id number] Subs Hosp L2
--- NOTE | 2019-12-07 13:08 | CASEMGMT ---
RN CM Assessment Note Intro role of CM to patient and her son. Patient is awake, alert and able to participate in assessment. Patient states she lives at home with her and is independent in ADL. Presentation: difficulty swallowing, generalized weakness Diagnosis: Dysphagia, cystitis PCP: Dr. Ramakrishna Rossi Specialist: Dr. Jannet Shafer [facility]: yes LNOK: Chandana Walters Living Arrangements: Lives in two story home, first floor set up. States independent in ADL's, cooking, housework when she is feeling well. Tranportation: does not drive, but family and assist. DME: Cpap, walker, cane, wheelchair HHC: in past- [facility]. agreeable to have again if needed. SNF: no Patient DC Goals: Home DC Plan: anticipate home on discharge with family to assist. Contact CM for any concerns/needs that may arise. Zora MEHTA RN ACM
[2019-12-07] MEDS: Acetaminophen 325 MG Tablet 650 MG PO ×2 (13:48→21:57)
[2019-12-07 15:55] LABS: Bedside Glucose 260 mg/dL (70-110)
[2019-12-07] MEDS: traMADol 50 MG Tablet PO (19:22)
[2019-12-07] MEDS: Atorvastatin Calcium 10 MG Tablet PO (21:55)
[2019-12-07 21:56] LABS: Bedside Glucose 294 mg/dL (70-110)
[2019-12-08 03:21] VITALS: BP 127/74; PULSE 71; RESP 20; TEMP 36.4; O2SAT 99
[2019-12-08 05:45] LABS: Absolute Lymphocyte Count 1.64 X10^3/uL (0.83-4.51); Absolute Neutrophil Count 5.9 X10^3/uL (2.0-7.7); Basophil# 0.06 X10^3/uL; Basophil% 0.7 % (0-1); Eosinophil# 0.18 X10^3/uL; Eosinophils% 2.1 % (0-5); Hematocrit 37.9 % (37-47); Hemoglobin 12.1 g/dL (12.0-15.0); Lymphocyte # 1.64 X10^3/ul (4.0); Lymphocyte % 19.3 % (19-41); Mean Corp Hgb Conc 31.9 g/dL (32-36); Mean Corpuscular Hgb 30.4 pg (27.0-32.0); Mean Corpuscular Volume 95.2 fL (81-99); Mean Platelet Vol. 9.9 fl (6.2-12.0); Monocyte# 0.72 X10^3/uL; Monocyte% 8.5 % (0-10); NRBC Flagged by Analyzer 0 % (0-5); Neutrophil # 5.85 X10^3/uL (2.7-7.7); Neutrophil % 68.7 % (47-70); Platelet Count 248 K/mm3 (150-450); RBC Distribution Width CV 13.5 % (11.6-14.6); RBC Distribution Width SD 46.9 fl (35.1-43.9); Red Blood Count 3.98 M/mm3 (4.2-5.4); White Blood Count 8.5 K/mm3 (4.4-11.0)
[2019-12-08 06:06] LABS: Anion Gap 4 (5-15); BUN 21 mg/dL (7-18); BUN/Creat Ratio 28.1 RATIO (10-20); Calcium,Total 8.7 mg/dL (8.5-10.1); Chloride 104 mmol/L (98-107); Creatinine, Serum 0.75 mg/dL (0.55-1.02); EST Glomerular Filtration Rate 80 mL/min (>60); Est Glom Filt Rate - Afr Amer 97 mL/min (>60); Estimated Creatinine Clearance 43.07 ml/min; Glucose 210 mg/dL (74-106); Potassium 4.9 mmol/L (3.5-5.1); Sodium Level 136 mmol/L (136-145)
[2019-12-08] MEDS: Levothyroxine 125 MCG Tablet PO (06:24)
[2019-12-08] MEDS: Pramipexole Di-HCl 0.5 MG Tablet PO ×3 (06:24→21:12)
[2019-12-08 06:30] LABS: Bedside Glucose 190 mg/dL (70-110)
[2019-12-08] MEDS: Insulin Lispro 100 UNIT/ML INSULN.PEN SC ×4 (06:52→21:13)
[2019-12-08 07:23] VITALS: O2SAT 96
[2019-12-08] MEDS: Glimepiride 2 MG Tablet PO (08:05)
[2019-12-08 09:58] VITALS: BP 122/70; PULSE 87; RESP 18; TEMP 36.7; O2SAT 96
[2019-12-08] MEDS: Ceftriaxone 1 GM/50 ML BAG IV (10:00)
[2019-12-08] MEDS: Lisinopril 20 MG Tablet PO (10:01)
[2019-12-08] MEDS: Tolterodine Tartrate 2 MG CAP.SA PO (10:01)
[2019-12-08] MEDS: Enoxaparin 100 MG/ML Syringe 90 MG SC ×2 (10:01→21:13)
[2019-12-08] MEDS: Pantoprazole Sodium 40 MG Tablet PO ×2 (10:02→21:12)
[2019-12-08] MEDS: Glucerna Shake 120 ML LIQUID PO ×2 (10:04→14:57)
[2019-12-08] MEDS: 0.9% Normal Saline 1,000 ML 75 ML IV (11:34)
[2019-12-08 11:40] LABS: Bedside Glucose 356 mg/dL (70-110)
--- NOTE | 2019-12-08 12:32 | PCM.PN.HOSP ---
<Boogie Wu - Last Filed: 12/08/19 12:37> Patient Problems: Active and Suspected Problems (Last Updated 12/06/19 @ 17:[address] Kranthi Li MD) UTI (urinary tract infection) (Acute) Dysphagia (Acute) Reason for Visit: dysphagia Subjective: Pt resting comfortably in bed. She ate her whole breakfast without regurg. Currently she feels that some of it is stuck in her esophagus. Yesterday she tolerated her meals without any regurg or vomting. She has no fever/chills. No abd pain. No dysuria. Vitals/I&O's: Vital Signs Temp Pulse Resp BP Pulse Ox 98.1 F 87 18 122/70 H 96 12/08/19 09:58 12/08/19 09:58 12/08/19 09:58 12/08/19 09:58 12/08/19 09:58 Oxygen Delivery Method Room Air Weight: 216 lb 0.848 oz Body Mass Index (BMI) 35.9 Intake and Output for Last 24 Hours 12/06/19 12/07/19 12/08/19 23:59 23:59 23:59 Intake Total 1050.0 / 1550.0 4021.25 / 4021.25 1496.25 / 1496.25 Output Total 2950 / 2950 1100 / 1100 Balance 1050.0 / 1050.0 1071.25 / 1071.25 396.25 / 396.25 General: Alert, Oriented x3, Cooperative HEENT: Atraumatic, PERRLA, EOMI, Normocephalic Neck: Supple, No JVD, Negative Carotid Bruits Lungs: Clear to auscultation, Normal air movement Cardiovascular: Regular rate, No murmurs Abdomen: Bowel Sounds Present, Soft, Non Tender Extremities: No edema, Capillary Refill Less than 3 Seconds Skin: No rashes, No breakdown Musculoskeletal: No Tenderness to Palpation of Joints or Extremities Neurological: Cranial nerves II-XII grossly intact Psych/Mental Status: Normal Affect, Appropriate, Alert and oriented to time, place, person, mood and affect Microbiology Past 72 Hours 12/06/19 15:59 Urine, Clean Catch Urine Culture - Final Presumptive E. coli Laboratory Results 12/07/19 15:42: POC Glucose 260 H 12/07/19 21:49: POC Glucose 294 H 12/08/19 05:11: WBC 8.5, RBC 3.98 L, Hgb 12.1, Hct 37.9, MCV 95.2, MCH 30.4, MCHC 31.9 L, RDW Std Deviation 46.9 H, RDW Coeff of Basilio 13.5, Plt Count 248, MPV 9.9, Immature Gran % (Auto) 0.700, Neut % (Auto) 68.7, Lymph % (Auto) 19.3, [place] % (Auto) 8.5, Eos % (Auto) 2.1, Baso % (Auto) 0.7, Absolute Neuts (auto) 5.9, Absolute Lymphs (auto) 1.64, Nucleated RBC % 0 12/08/19 05:11: Sodium 136, Potassium 4.9, Chloride 104, Carbon Dioxide 28.0, Anion Gap 4 L, BUN 21 H, Creatinine 0.75, Estim Creat Clear Calc 43.07, Est GFR (MDRD) Af Amer 97, Est GFR (MDRD) Non-Af 80, BUN/Creatinine Ratio 28.1 H, Glucose 210 H, Calcium 8.7 12/08/19 06:21: POC Glucose 190 H 12/08/19 11:32: POC Glucose 356 H Current Medications Acetaminophen (Tylenol) 650 mg PO Q6H PRN PRN PRN Reason: Pain Score 1-10/Temp > 100.7 F Last Admin: 12/07/19 21:57 Dose: 650 mg Documented by: Al Hydroxide/Mg Hydroxide (Mylanta Ii) 30 ml PO Q6H PRN PRN PRN Reason: Heartburn, indigestion. Albuterol Sulfate (Ventolin Aerosols) 2.5 mg INHALATION Q4H PRN PRN PRN Reason: Shortness of breath, wheezing Atorvastatin Calcium (Lipitor) 10 mg PO QHS [facility] Last Admin: 12/07/19 21:55 Dose: 10 mg Documented by: Enoxaparin Sodium (Lovenox) 90 mg SC Q12 [facility] Last Admin: 12/08/19 10:01 Dose: 90 mg Documented by: Glimepiride (Amaryl) 2 mg PO QAM@0800 [facility] Last Admin: 12/08/19 08:05 Dose: 2 mg Documented by: Sodium Chloride () 1,000 mls @ 75 mls/hr IV .[id number] [facility] Last Admin: 12/08/19 11:34 Dose: 75 mls/hr Documented by: Ceftriaxone Sodium (Rocephin) 1 gm in 50 mls @ 100 mls/hr IV Q24 [facility] Last Infusion: 12/08/19 10:39 Dose: Infused Documented by: Sodium Chloride () 250 mls @ 15 mls/hr IV .[id number] PRN PRN Reason: Saline Flush Insulin Glargine (Lantus ([facility])) 10 units SC QHS [facility] Last Admin: 12/07/19 21:56 Dose: 10 units Documented by: Insulin Human Lispro (Humalog Kwikpen ([facility])) 0 unit SC ACHS [facility]; Protocol Last Admin: 12/08/19 11:33 Dose: 6 u Documented by: Levothyroxine Sodium (Synthroid) 125 mcg PO DAILY@0600 [facility] Last Admin: 12/08/19 06:24 Dose: 125 mcg Documented by: Lisinopril (Zestril) 20 mg PO DAILY [facility] Last Admin: 12/08/19 10:01 Dose: 20 mg Documented by: Nutritional Formula (Lactose Free) (Glucerna Shake) 120 ml PO 4X/DAY [facility] Last Admin: 12/08/19 10:04 Dose: 120 ml Documented by: Ondansetron HCl (Zofran) 4 mg IV Q8H PRN PRN PRN Reason: NAUSEA/VOMITING Oxycodone HCl (Oxyir) 5 mg PO Q6H PRN PRN PRN Reason: Pain Score 4-10/10 Pantoprazole Sodium (Protonix) 40 mg PO BID [facility] Last Admin: 12/08/19 10:02 Dose: 40 mg Documented by: Pramipexole Dihydrochloride (Mirapex) 0.5 mg PO TID [facility] Last Admin: 12/08/19 06:24 Dose: 0.5 mg Documented by: Senna/Docusate Sodium (Senokot-S, Oralia-Colace) 2 tablet PO BID PRN PRN PRN Reason: Constipation Sodium Chloride () 10 - 40 ml IV UD PRN PRN Reason: SALINE FLUSH Tolterodine Tartrate (Detrol La) 2 mg PO DAILY [facility] Last Admin: 12/08/19 10:01 Dose: 2 mg Documented by: Tramadol HCl (Ultram) 50 mg PO Q6H PRN PRN PRN Reason: PAIN 1-06/24 Last Admin: 12/07/19 19:22 Dose: 50 mg Documented by: Zolpidem Tartrate (Ambien (Generic)) 5 mg PO QHS PRN PRN PRN Reason: INSOMNIA STROKE Vital Signs/Narrative: Vital Signs Temp Pulse Resp BP Pulse Ox 12/08/19 09:58 98.1 F 87 18 122/70 H 96 Medical Necessity - Tobacco Use Smoking Status: Never smoker Assessment/Plan All Active Problems (Last Updated 12/06/19 @ 17:[address] Kranthi Li MD) UTI (urinary tract infection) (Acute) Dysphagia (Acute) 1. Dysphagia - Doing well. No regurg so far yesterday or today. Continue PPI. Hx severe GERD and Belkys procedure for hiatal hernia. -Barium swallow monday. 2. UTI - presumptive e coli, pansensitive. Change abx to keflex 500 q12. plan for 5 days total of abx therapy. 3. Uncontrolled DMt2 with hyperglycemia - continue home meds + SSI. A1C 11.9. Start basal insulin tonight. Pt had been vomiting up home meds. 4. Hypothyroidism - tsh normal. 5. Hyponatremia - possibly 2/2 thiazide diuretic and/or hyperglycemia. Resolved. 6. Hx Parkinsons 7. hx PE - continue xarelto 8. Hx COPD - no exacerbation. prn albuterol 9. HLD - continue statin DVT ppx: lovenox q12 This patient was seen by Bogoie Wu PA-C under the supervision of Dr. Osorio <Paola Osorio - Last Filed: 12/08/19 13:41> Vitals/I&O's: Vital Signs Temp Pulse Resp BP Pulse Ox 98.1 F 87 18 122/70 H 96 12/08/19 09:58 12/08/19 09:58 12/08/19 09:58 12/08/19 09:58 12/08/19 09:58 Oxygen Delivery Method Room Air Weight: 216 lb 0.848 oz Body Mass Index (BMI) 35.9 Intake and Output for Last 24 Hours 12/06/19 12/07/19 12/08/19 23:59 23:59 23:59 Intake Total 1050.0 / 1550.0 4021.25 / 4021.25 1496.25 / 1496.25 Output Total 2950 / 2950 1100 / 1100 Balance 1050.0 / 1050.0 1071.25 / 1071.25 396.25 / 396.25 Microbiology Past 72 Hours 12/06/19 15:59 Urine, Clean Catch Urine Culture - Final Presumptive E. coli Laboratory Results 12/07/19 15:42: POC Glucose 260 H 12/07/19 21:49: POC Glucose 294 H 12/08/19 05:11: WBC 8.5, RBC 3.98 L, Hgb 12.1, Hct 37.9, MCV 95.2, MCH 30.4, MCHC 31.9 L, RDW Std Deviation 46.9 H, RDW Coeff of Basilio 13.5, Plt Count 248, MPV 9.9, Immature Gran % (Auto) 0.700, Neut % (Auto) 68.7, Lymph % (Auto) 19.3, [place] % (Auto) 8.5, Eos % (Auto) 2.1, Baso % (Auto) 0.7, Absolute Neuts (auto) 5.9, Absolute Lymphs (auto) 1.64, Nucleated RBC % 0 12/08/19 05:11: Sodium 136, Potassium 4.9, Chloride 104, Carbon Dioxide 28.0, Anion Gap 4 L, BUN 21 H, Creatinine 0.75, Estim Creat Clear Calc 43.07, Est GFR (MDRD) Af Amer 97, Est GFR (MDRD) Non-Af 80, BUN/Creatinine Ratio 28.1 H, Glucose 210 H, Calcium 8.7 12/08/19 06:21: POC Glucose 190 H 12/08/19 11:32: POC Glucose 356 H Current Medications Acetaminophen (Tylenol) 650 mg PO Q6H PRN PRN PRN Reason: Pain Score 1-10/Temp > 100.7 F Last Admin: 12/07/19 21:57 Dose: 650 mg Documented by: Al Hydroxide/Mg Hydroxide (Mylanta Ii) 30 ml PO Q6H PRN PRN PRN Reason: Heartburn, indigestion. Albuterol Sulfate (Ventolin Aerosols) 2.5 mg INHALATION Q4H PRN PRN PRN Reason: Shortness of breath, wheezing Atorvastatin Calcium (Lipitor) 10 mg PO QHS [facility] Last Admin: 12/07/19 21:55 Dose: 10 mg Documented by: Cephalexin (Keflex) 500 mg PO Q12 [facility] Enoxaparin Sodium (Lovenox) 90 mg SC Q12 [facility] Last Admin: 12/08/19 10:01 Dose: 90 mg Documented by: Glimepiride (Amaryl) 2 mg PO QAM@0800 [facility] Last Admin: 12/08/19 08:05 Dose: 2 mg Documented by: Sodium Chloride () 250 mls @ 15 mls/hr IV .[id number] PRN PRN Reason: Saline Flush Insulin Glargine (Lantus ([facility])) 10 units SC QHS [facility] Last Admin: 12/07/19 21:56 Dose: 10 units Documented by: Insulin Human Lispro (Humalog Kwikpen ([facility])) 0 unit SC ACHS [facility]; Protocol Last Admin: 12/08/19 11:33 Dose: 6 u Documented by: Levothyroxine Sodium (Synthroid) 125 mcg PO DAILY@0600 [facility] Last Admin: 12/08/19 06:24 Dose: 125 mcg Documented by: Lisinopril (Zestril) 20 mg PO DAILY [facility] Last Admin: 12/08/19 10:01 Dose: 20 mg Documented by: Nutritional Formula (Lactose Free) (Glucerna Shake) 120 ml PO 4X/DAY [facility] Last Admin: 12/08/19 10:04 Dose: 120 ml Documented by: Ondansetron HCl (Zofran) 4 mg IV Q8H PRN PRN PRN Reason: NAUSEA/VOMITING Oxycodone HCl (Oxyir) 5 mg PO Q6H PRN PRN PRN Reason: Pain Score 4-10/10 Pantoprazole Sodium (Protonix) 40 mg PO BID [facility] Last Admin: 12/08/19 10:02 Dose: 40 mg Documented by: Pramipexole Dihydrochloride (Mirapex) 0.5 mg PO TID [facility] Last Admin: 12/08/19 06:24 Dose: 0.5 mg Documented by: Senna/Docusate Sodium (Senokot-S, Oralia-Colace) 2 tablet PO BID PRN PRN PRN Reason: Constipation Sodium Chloride () 10 - 40 ml IV UD PRN PRN Reason: SALINE FLUSH Tolterodine Tartrate (Detrol La) 2 mg PO DAILY [facility] Last Admin: 12/08/19 10:01 Dose: 2 mg Documented by: Tramadol HCl (Ultram) 50 mg PO Q6H PRN PRN PRN Reason: PAIN 1-3 Last Admin: 12/07/19 19:22 Dose: 50 mg Documented by: Zolpidem Tartrate (Ambien (Generic)) 5 mg PO QHS PRN PRN PRN Reason: INSOMNIA STROKE Vital Signs/Narrative: Vital Signs Temp Pulse Resp BP Pulse Ox 12/08/19 09:58 98.1 F 87 18 122/70 H 96 Assessment/Plan Patient seen by Boogie Wu PA-C under my supervision. Patient seen and examined this morning. She feels better today and says she was able to keep her food down yesterday and this morning. She has not vomited at all. Review of systems otherwise negative. She is for barium swallow tomorrow. O/E: Vital Signs Temp Pulse Resp BP Pulse Ox 98.1 F 87 18 122/70 H 96 12/08/19 09:58 12/08/19 09:58 12/08/19 09:58 12/08/19 09:58 12/08/19 09:58 General: Alert, Oriented x3, Cooperative HEENT: Atraumatic, PERRLA, EOMI, Normocephalic Neck: Supple, No JVD, Negative Carotid Bruits Lungs: Clear to auscultation, Normal air movement Cardiovascular: Regular rate, No murmurs Abdomen: Bowel Sounds Present, Soft, Non Tender Extremities: No edema, Capillary Refill Less than 3 Seconds Skin: No rashes, No breakdown Musculoskeletal: No Tenderness to Palpation of Joints or Extremities Neurological: Cranial nerves II-XII grossly intact Psych/Mental Status: Normal Affect, Appropriate, Alert and oriented to time, place, person, mood and affect Plan is to have a barium swallow tomorrow to evaluate for stricture or any other pathology. Based on barium swallow results, will consider general surgery consult. Continue sliding scale and patient started on Lantus 10 units nightly. On IV ceftriaxone for UTI. Urine cultures pending. Currently on therapeutic Lovenox as Xarelto is on hold. Rest as per Boogie Wu PA-C's notes which I reviewed and endorsed. Inpatient E&M: 36053 Subs Hosp L2
[2019-12-08 16:20] VITALS: BP 107/62; PULSE 92; RESP 18; TEMP 36.8; O2SAT 94
[2019-12-08 16:30] LABS: Bedside Glucose 355 mg/dL (70-110)
[2019-12-08] MEDS: Acetaminophen 325 MG Tablet 650 MG PO (19:57)
[2019-12-08 21:07] VITALS: BP 107/72; PULSE 89; RESP 18; TEMP 37; O2SAT 95
[2019-12-08] MEDS: Atorvastatin Calcium 10 MG Tablet PO (21:12)
[2019-12-08] MEDS: Cephalexin 500 MG Capsule PO (21:20)
[2019-12-08 21:31] LABS: Bedside Glucose 314 mg/dL (70-110)
[2019-12-09 02:43] VITALS: BP 142/71; PULSE 77; RESP 18; TEMP 36.6; O2SAT 96
[2019-12-09 06:48] LABS: Anion Gap 4 (5-15); BUN 16 mg/dL (7-18); BUN/Creat Ratio 20.3 RATIO (10-20); Calcium,Total 8.5 mg/dL (8.5-10.1); Chloride 108 mmol/L (98-107); Creatinine, Serum 0.79 mg/dL (0.55-1.02); EST Glomerular Filtration Rate 75 mL/min (>60); Est Glom Filt Rate - Afr Amer 91 mL/min (>60); Estimated Creatinine Clearance 43.07 ml/min; Glucose 188 mg/dL (74-106); Potassium 4.4 mmol/L (3.5-5.1); Sodium Level 139 mmol/L (136-145)
[2019-12-09 07:15] VITALS: O2SAT 100
[2019-12-09 07:32] VITALS: BP 129/68; PULSE 63; RESP 16; TEMP 37; O2SAT 100
--- NOTE | 2019-12-09 08:45 | RAD_ITS ---
STUDY: X-RAY - ESOPHAGUS (BARIUM SWALLOW) WITH FLUOROSCOPY REASON FOR EXAM: Female, 74 years old. Pt states painless dysphagia x 2 years, vomiting few hours after eating, acid reflux, occasional heartburn TECHNIQUE: 26 view(s) of the esophagus were obtained following swallowing of barium. FLUOROSCOPY TIME (if supplied): (0:46) minutes/seconds COMPARISON: Comparison is made with prior study dated 12/31/2018. FINDINGS: There is no demonstrated esophageal foreign body. There is evidence of tertiary contractions of the esophagus. Moderate sized hiatal hernia with gastroesophageal reflux. The patient ingested a 12 mm tablet of barium. The tablet instrument at the gastroesophageal junction. There is atherosclerotic tortuosity of the aortic arch and descending thoracic aorta. Normal visualized pulmonary parenchyma. There are diffuse degenerative changes of the visualized thoracic spine. RAD/Esophagus Dual Contrast IMPRESSION: Tertiary contractions of the esophagus with a moderate sized hiatal hernia and gastroesophageal reflux. The 12 mm tablet of barium is trapped at the gastroesophageal junction. Electronically Signed: Zion Chen, at 12:46 EDT , Service support ,
--- NOTE | 2019-12-09 09:22 | EKG12_ITS ---
Test Reason : WEAKNESS Blood Pressure : / mmHG Vent. Rate : 077 BPM Atrial Rate : 077 BPM P-R Int : 190 ms QRS Dur : 088 ms QT Int : 352 ms P-R-T Axes : 008 003 030 degrees QTc Int : 398 ms Normal sinus rhythm Normal ECG Confirmed by LINA VILLA, ANDREI ([id number]), school photograph editor HILDA EVERETT ([id number]) on 12/13/2019 11:24:35 A M Referred By: ISAIAS Confirmed By:ABDIRIZAK MILLS MD
[2019-12-09] MEDS: Acetaminophen 325 MG Tablet 650 MG PO ×2 (09:42→16:30)
[2019-12-09] MEDS: Tolterodine Tartrate 2 MG CAP.SA PO (09:43)
[2019-12-09] MEDS: Lisinopril 20 MG Tablet PO (09:43)
[2019-12-09] MEDS: Glimepiride 2 MG Tablet PO (09:43)
[2019-12-09] MEDS: Glucerna Shake 120 ML LIQUID PO (09:44)
[2019-12-09] MEDS: Pantoprazole Sodium 40 MG Tablet PO (09:44)
[2019-12-09] MEDS: Cephalexin 500 MG Capsule PO ×2 (09:44→21:55)
[2019-12-09] MEDS: Enoxaparin 100 MG/ML Syringe 90 MG SC ×2 (09:45→21:54)
[2019-12-09] MEDS: Insulin Lispro 100 UNIT/ML INSULN.PEN SC ×3 (11:16→21:52)
[2019-12-09 11:25] LABS: Bedside Glucose 291 mg/dL (70-110)
[2019-12-09 11:41] LABS: Bedside Glucose 176 mg/dL (70-110)
--- NOTE | 2019-12-09 13:38 | CHAPLAIN ---
Type of Pastoral Visit _x__ Initial Visit ___ Follow-up Visit ___ On-call Visit ___ General Patient Visit ___ Spiritual Assessment ___ Family Conference ___ Bereavement ___ Rapid Response ___ Code Blue ___ Other (describe below) Pastoral Care Referral From _x__ Patient ___ Family ___ Nurse ___ Physician ___ Scene And Lighting Design Lecturer ___ Brake Lining Finisher Asbestos ___ Other (describe below) Sacrament/Intervention _x__ Active listening ___ Anointing ___ Spiritism ___ Bereavement ___ Communion _x__ Jodi exploration ___ _x__ Life review _x__ Prayer ___ Reconciliation ___ Sacrament of Sick _x__ Supportive presence ___ Wedding ___ Other (describe below) Pastoral Comments
--- NOTE | 2019-12-09 14:04 | PN_ITS ---
<Boogie Wu - Last Filed: 12/09/19 14:04> Patient Problems: Active and Suspected Problems (Last Updated 12/06/19 @ 17:[address] Kranthi Li MD) UTI (urinary tract infection) (Acute) Dysphagia (Acute) Reason for Visit: dysphagia Subjective: Pt underwent barium swallow this AM. Experienced some nausea but no vomiting. She still has not regurgitated any meals this stay and has not vomited. She does feel food trapped in her esophagus but it slowly passes. Still complains that she is weak. No fever/chills. No abd pain. No dysuria. She reports a normal BM last night. Vitals/I&O's: Vital Signs Temp Pulse Resp BP Pulse Ox 98.6 F 63 16 129/68 H 100 12/09/19 07:32 12/09/19 07:32 12/09/19 07:32 12/09/19 07:32 12/09/19 07:32 Oxygen Delivery Method Room Air Weight: 216 lb 0.848 oz Body Mass Index (BMI) 35.9 Intake and Output for Last 24 Hours 12/07/19 12/08/19 12/09/19 23:59 23:59 23:59 Intake Total 4021.25 / 4021.25 1946.25 / 1946.25 1000 / 1000 Output Total 2950 / 2950 2300 / 2300 Balance 1071.25 / 1071.25 -353.75 / -353.75 1000 / 1000 General: Alert, Oriented x3, Cooperative HEENT: Atraumatic, PERRLA, EOMI, Normocephalic Neck: Supple, No JVD, Negative Carotid Bruits Lungs: Clear to auscultation, Normal air movement Cardiovascular: Regular rate, No murmurs Abdomen: Bowel Sounds Present, Soft, Non Tender Extremities: No edema, Capillary Refill Less than 3 Seconds Skin: No rashes, No breakdown Musculoskeletal: No Tenderness to Palpation of Joints or Extremities Neurological: Cranial nerves II-XII grossly intact Psych/Mental Status: Normal Affect, Appropriate Microbiology Past 72 Hours 12/06/19 15:59 Urine, Clean Catch Urine Culture - Final Presumptive E. coli Laboratory Results 12/08/19 16:18: POC Glucose 355 H 12/08/19 21:09: POC Glucose 314 H 12/09/19 05:17: POC Glucose 176 H 12/09/19 06:00: Sodium 139, Potassium 4.4, Chloride 108 H, Carbon Dioxide 27.0, Anion Gap 4 L, BUN 16, Creatinine 0.79, Estim Creat Clear Calc 43.07, Est GFR (MDRD) Af Amer 91, Est GFR (MDRD) Non-Af 75, BUN/Creatinine Ratio 20.3 H, Glucose 188 H, Calcium 8.5 12/09/19 11:14: POC Glucose 291 H Current Medications Acetaminophen (Tylenol) 650 mg PO Q6H PRN PRN PRN Reason: Pain Score 1-10/Temp > 100.7 F Last Admin: 12/09/19 09:42 Dose: 650 mg Documented by: Al Hydroxide/Mg Hydroxide (Mylanta Ii) 30 ml PO Q6H PRN PRN PRN Reason: Heartburn, indigestion. Albuterol Sulfate (Ventolin Aerosols) 2.5 mg INHALATION Q4H PRN PRN PRN Reason: Shortness of breath, wheezing Atorvastatin Calcium (Lipitor) 10 mg PO QHS [facility] Last Admin: 12/08/19 21:12 Dose: 10 mg Documented by: Cephalexin (Keflex) 500 mg PO Q12 [facility] Last Admin: 12/09/19 09:44 Dose: 500 mg Documented by: Enoxaparin Sodium (Lovenox) 90 mg SC Q12 [facility] Last Admin: 12/09/19 09:45 Dose: 90 mg Documented by: Glimepiride (Amaryl) 2 mg PO QAM@0800 [facility] Last Admin: 12/09/19 09:43 Dose: 2 mg Documented by: Sodium Chloride () 250 mls @ 15 mls/hr IV .[id number] PRN PRN Reason: Saline Flush Insulin Glargine (Lantus (Bkc)) 14 units SC QHS [facility] Insulin Human Lispro (Humalog Kwikpen (Bkc)) 0 unit SC ACHS [facility]; Protocol Last Admin: 12/09/19 11:16 Dose: 4 u Documented by: Levothyroxine Sodium (Synthroid) 125 mcg PO DAILY@0600 [facility] Last Admin: 12/09/19 05:05 Dose: Not Given Documented by: Lisinopril (Zestril) 20 mg PO DAILY [facility] Last Admin: 12/09/19 09:43 Dose: 20 mg Documented by: Nutritional Formula (Lactose Free) (Glucerna Shake) 120 ml PO 4X/DAY [facility] Last Admin: 12/09/19 09:44 Dose: 120 ml Documented by: Ondansetron HCl (Zofran) 4 mg IV Q8H PRN PRN PRN Reason: NAUSEA/VOMITING Oxycodone HCl (Oxyir) 5 mg PO Q6H PRN PRN PRN Reason: Pain Score 4-10/10 Pantoprazole Sodium (Protonix) 40 mg PO BID [facility] Last Admin: 12/09/19 09:44 Dose: 40 mg Documented by: Pramipexole Dihydrochloride (Mirapex) 0.5 mg PO TID [facility] Last Admin: 12/09/19 05:05 Dose: Not Given Documented by: Senna/Docusate Sodium (Senokot-S, Oralia-Colace) 2 tablet PO BID PRN PRN PRN Reason: Constipation Sodium Chloride () 10 - 40 ml IV UD PRN PRN Reason: SALINE FLUSH Tolterodine Tartrate (Detrol La) 2 mg PO DAILY [facility] Last Admin: 12/09/19 09:43 Dose: 2 mg Documented by: Tramadol HCl (Ultram) 50 mg PO Q6H PRN PRN PRN Reason: PAIN 1-310 Last Admin: 12/07/19 19:22 Dose: 50 mg Documented by: Zolpidem Tartrate (Ambien (Generic)) 5 mg PO QHS PRN PRN PRN Reason: INSOMNIA Medical Necessity - Tobacco Use Smoking Status: Never smoker Assessment/Plan All Active Problems (Last Updated 12/06/19 @ 17:[address] Kranthi Li MD) UTI (urinary tract infection) (Acute) Dysphagia (Acute) 1. Dysphagia - still tolerating meals. -Barium swallow : tablet trapped at GE junction. -consult Gen surgery -pt with prior hiatal hernia and stephen fundoplication -Pt follows [facility]. 2. UTI - presumptive e coli, pansensitive. keflex 500 q12. plan for 5 days total of abx therapy. 3. Uncontrolled DMt2 with hyperglycemia - continue home meds + SSI. A1C 11.9. Start basal insulin tonight. Pt had been vomiting up home meds likely leading to worsening A1C. 4. Hypothyroidism - tsh normal. 5. Hyponatremia - possibly 2/2 thiazide diuretic and/or hyperglycemia. Resolved. 6. Hx Parkinsons 7. hx PE - xarelto held, on lovenox 8. Hx COPD - no exacerbation. prn albuterol 9. HLD - continue statin DVT ppx: lovenox q12 This patient was seen by Boogie Wu PA-C under the supervision of Dr. Osorio <Paola Osorio - Last Filed: 12/09/19 15:24> Vitals/I&O's: Vital Signs Temp Pulse Resp BP Pulse Ox 97.9 F 89 16 132/75 H 95 12/09/19 14:41 12/09/19 14:41 12/09/19 14:41 12/09/19 14:41 12/09/19 14:41 Oxygen Delivery Method Room Air Weight: 216 lb 0.848 oz Body Mass Index (BMI) 35.9 Intake and Output for Last 24 Hours 12/07/19 12/08/19 12/09/19 23:59 23:59 23:59 Intake Total 4021.25 / 4021.25 1946.25 / 1946.25 1000 / 1000 Output Total 2950 / 2950 2300 / 2300 Balance 1071.25 / 1071.25 -353.75 / -353.75 1000 / 1000 Microbiology Past 72 Hours 12/06/19 15:59 Urine, Clean Catch Urine Culture - Final Presumptive E. coli Laboratory Results 12/08/19 16:18: POC Glucose 355 H 12/08/19 21:09: POC Glucose 314 H 12/09/19 05:17: POC Glucose 176 H 12/09/19 06:00: Sodium 139, Potassium 4.4, Chloride 108 H, Carbon Dioxide 27.0, Anion Gap 4 L, BUN 16, Creatinine 0.79, Estim Creat Clear Calc 43.07, Est GFR (MDRD) Af Amer 91, Est GFR (MDRD) Non-Af 75, BUN/Creatinine Ratio 20.3 H, Glucose 188 H, Calcium 8.5 12/09/19 11:14: POC Glucose 291 H Current Medications Acetaminophen (Tylenol) 650 mg PO Q6H PRN PRN PRN Reason: Pain Score 1-10/Temp > 100.7 F Last Admin: 12/09/19 09:42 Dose: 650 mg Documented by: Al Hydroxide/Mg Hydroxide (Mylanta Ii) 30 ml PO Q6H PRN PRN PRN Reason: Heartburn, indigestion. Albuterol Sulfate (Ventolin Aerosols) 2.5 mg INHALATION Q4H PRN PRN PRN Reason: Shortness of breath, wheezing Atorvastatin Calcium (Lipitor) 10 mg PO QHS [facility] Last Admin: 12/08/19 21:12 Dose: 10 mg Documented by: Cephalexin (Keflex) 500 mg PO Q12 [facility] Last Admin: 12/09/19 09:44 Dose: 500 mg Documented by: Enoxaparin Sodium (Lovenox) 90 mg SC Q12 [facility] Last Admin: 12/09/19 09:45 Dose: 90 mg Documented by: Glimepiride (Amaryl) 2 mg PO QAM@0800 [facility] Last Admin: 12/09/19 09:43 Dose: 2 mg Documented by: Sodium Chloride () 250 mls @ 15 mls/hr IV .[id number] PRN PRN Reason: Saline Flush Insulin Glargine (Lantus (Bkc)) 14 units SC QHS [facility] Insulin Human Lispro (Humalog Kwikpen (Bkc)) 0 unit SC ACHS [facility]; Protocol Last Admin: 12/09/19 11:16 Dose: 4 u Documented by: Levothyroxine Sodium (Synthroid) 125 mcg PO DAILY@0600 [facility] Last Admin: 12/09/19 05:05 Dose: Not Given Documented by: Lisinopril (Zestril) 20 mg PO DAILY [facility] Last Admin: 12/09/19 09:43 Dose: 20 mg Documented by: Nutritional Formula (Lactose Free) (Glucerna Shake) 120 ml PO 4X/DAY [facility] Last Admin: 12/09/19 14:35 Dose: Not Given Documented by: Ondansetron HCl (Zofran) 4 mg IV Q8H PRN PRN PRN Reason: NAUSEA/VOMITING Oxycodone HCl (Oxyir) 5 mg PO Q6H PRN PRN PRN Reason: Pain Score 4-10/10 Pantoprazole Sodium (Protonix) 40 mg PO BID [facility] Last Admin: 12/09/19 09:44 Dose: 40 mg Documented by: Pramipexole Dihydrochloride (Mirapex) 0.5 mg PO TID [facility] Last Admin: 12/09/19 14:38 Dose: 0.5 mg Documented by: Senna/Docusate Sodium (Senokot-S, Oralia-Colace) 2 tablet PO BID PRN PRN PRN Reason: Constipation Sodium Chloride () 10 - 40 ml IV UD PRN PRN Reason: SALINE FLUSH Tolterodine Tartrate (Detrol La) 2 mg PO DAILY [facility] Last Admin: 12/09/19 09:43 Dose: 2 mg Documented by: Tramadol HCl (Ultram) 50 mg PO Q6H PRN PRN PRN Reason: PAIN 1-3 Last Admin: 12/07/19 19:22 Dose: 50 mg Documented by: Zolpidem Tartrate (Ambien (Generic)) 5 mg PO QHS PRN PRN PRN Reason: INSOMNIA STROKE Vital Signs/Narrative: Vital Signs Temp Pulse Resp BP Pulse Ox 12/09/19 14:41 97.9 F 89 16 132/75 H 95 Assessment/Plan Patient seen by Boogie Wu PA-C under my supervision. Patient seen and examined this morning. SHe feels well and has no complaints. Review of systems otherwise negative. O/E: Vital Signs Temp Pulse Resp BP Pulse Ox 97.9 F 89 16 132/75 H 95 12/09/19 14:41 12/09/19 14:41 12/09/19 14:41 12/09/19 14:41 12/09/19 14:41 General: Alert, Oriented x3, Cooperative HEENT: Atraumatic, PERRLA, EOMI, Normocephalic Neck: Supple, No JVD, Negative Carotid Bruits Lungs: Clear to auscultation, Normal air movement Cardiovascular: Regular rate, No murmurs Abdomen: Bowel Sounds Present, Soft, Non Tender Extremities: No edema, Capillary Refill Less than 3 Seconds Skin: No rashes, No breakdown Musculoskeletal: No Tenderness to Palpation of Joints or Extremities Neurological: Cranial nerves II-XII grossly intact Psych/Mental Status: Normal Affect, Appropriate, Alert and oriented to time, place, person, mood and affect Patient had a barium swallow today which showed tertiary contractions of the esophagus with a moderate sized hiatal hernia and gastroesophageal reflux with a 12 mm tablet of barium trapped at the gastroesophageal junction. General surgery consult placed. Patient to have EGD tomorrow. Will hold Lovenox tonight. Urine also cultured E. coli sensitive to ceftriaxone. Will switch to oral antibiotics tomorrow. Rest as per Boogie Wu PA-C's notes which I reviewed and endorsed. Inpatient E&M: [id number] Subs Hosp L2
[2019-12-09] MEDS: Pramipexole Di-HCl 0.5 MG Tablet PO (14:38)
[2019-12-09 14:41] VITALS: BP 132/75; PULSE 89; RESP 16; TEMP 36.6; O2SAT 95
--- NOTE | 2019-12-09 16:04 | CON.PCM_ITS ---
Problem List (1) Dysphagia Status: Acute Qualifiers: Dysphagia type: esophageal phase Qualified Code(s): R13.10 - Dysphagia, unspecified Reason for Consult Date of Consultation: 12/09/19 History of Present Illness: The patient is a 74 year old F with pmhx of Dmt2, Severe GERD, Hiatal hernia s/p belkys fundoplication, who presented to the ER with c/o generalized weakness and dysphagia. This morning she woke up feeling well, however at about 10 am she suddenly felt genearlized weakness and she was afraid that she would fall. She had breakfast, ate an egg and toast and was able to keep it down. She ate lunch and vomited it back up. She has vomited up dinner last night too. This has been increasingly more frequent over the past two months, in particular much more severe this week. She states she does not think she has had an actual meal in at least a week. She states her acid reflux is getting much worse. She states she has a severe acid reflux for which she follows Dr. Jannet Mar (?) at [facility]. She has an appointment with her Dec 18. The patient feels that the food is becoming stuck and unable to pass into her stomach and she throws it up. In the ER she was noted to have abnormal UA. The patient denies any urinary symptoms however she does note that she has had UTIs in the past and is prone to them as she is on Invokana for DM. She notes her diabetes has been much worse lately, that her A1C has worsened and that the lowest glucose she has seen recently was fasting in the AM with a glucose of about 240. She denies cough, fever, chills, diarrhea. Pt underwent barium swallow this AM. The esophageal tablet got stuck in the distal esophagus. experienced some nausea but no vomiting. She still has not regurgitated any meals this stay and has not vomited. She does feel food trapped in her esophagus but it slowly passes. Still complains that she is weak. No fever/chills. No abd pain. No dysuria. She reports a normal BM last night. Past Medical History Past Medical History (Chronic Problems): Chronic Problems (Last Updated 12/06/19 @ 17:[address] Kranthi Li MD) GERD (gastroesophageal reflux disease) (Chronic) Hiatal hernia (Chronic) Lumbar back pain (Chronic) Obesity (BMI 30.0-34.9) (Chronic) Parkinsons disease (Chronic) Pulmonary embolism (Chronic) Premature atrial contractions (Chronic) COPD (chronic obstructive pulmonary disease) (Chronic) Hypertension (Chronic) Hyperlipidemia (Chronic) Diabetes mellitus type II, controlled (Chronic) History of pulmonary embolism (Chronic) Medical History: Medical History (Last Reviewed 12/09/19 @ 16:[address] Lico Hall MD) Premature atrial contractions (Chronic) I49.1 COPD (chronic obstructive pulmonary disease) (Chronic) J44.9 Hypertension (Chronic) I10 Hyperlipidemia (Chronic) E78.5 Diabetes mellitus type II, controlled (Chronic) E11.9 History of pulmonary embolism (Chronic) Z86.711 Asthma J45.909 Depression F32.9 Hypothyroidism E03.9 IBS (irritable bowel syndrome) K58.9 Kidney disease N28.9 Lung disease J98.4 Sleep apnea G47.30 Symptomatic bradycardia (Inactive) R00.1 Allergies nitrofurantoin macrocrystalline [From Macrodantin] Allergy (Verified 12/06/19 15:29) Hives rosuvastatin [From Crestor] Adverse Reaction (Severe, Verified 12/06/19 15:29) Muscle weakness colesevelam [From WelChol] Adverse Reaction (Intermediate, Verified 12/06/19 15:29) nausea nitrofurantoin [From Furadantin] Adverse Reaction (Intermediate, Verified 12/06/19 19:00) Hives Home Medications: Ambulatory Orders Medication Instructions Recorded Albuterol Sulfate [Proventil Hfa] 2 puff IH Q6H PRN PRN 06/18/13 Fluticasone 110 Mcg [Flovent 110 2 puff INHALATION BID 06/18/13 Mcg] Levothyroxine [Synthroid] 125 mcg PO DAILY 06/18/13 Tramadol HCl 50 mg PO Q6H PRN PRN 06/18/13 glimepiride 2 mg tablet 2 mg PO QAM 06/19/17 omeprazole 20 mg capsule,delayed 20 mg PO QDAY 06/19/17 release oxybutynin chloride 10 mg 10 mg PO QDAY 06/19/17 tablet,extended release 24 hr Acetaminophen [Acetaminophen 8 1,300 mg PO Q6H PRN PRN 07/28/17 Hour] Calcium Carbonate [Calcium] 600 mg PO DAILY 07/28/17 Cholecalciferol (VIT D3) [Vitamin 5,000 unit PO DAILY 07/28/17 D3] Dicyclomine HCl 20 mg PO DAILY PRN PRN 07/28/17 Oxycodone [Oxyir] 5 mg PO Q6H PRN PRN 07/28/17 rivaroxaban 20 mg tablet 20 mg PO QDAY 30 Days #30 tab 09/01/17 simvastatin 20 mg tablet 20 mg PO QDAY 90 Days #90 tab 09/01/17 Canagliflozin [Invokana] 100 mg PO DAILY 12/06/19 Lisinopril/Hydrochlorothiazide 1 tab PO BID 12/06/19 [Lisinopril-Hctz 20-12.5 mg Tab] Pramipexole Di-HCl [Mirapex] 0.5 mg PO TID 12/06/19 Surgical History: Surgical History (Last Reviewed 12/09/19 @ 16:[address] Lico Hall MD) History of Belkys fundoplication Z98.890 History of cholecystectomy Z98.890, Z90.49 History of lumbar fusion Onset Date: ~2012 Z98.1 L3-L4 07/2016 History of right hip replacement Onset Date: ~07/08/15 Z96.641 Hx of hernia repair Z98.890, Z87.19 Hx of lumbar discectomy Z98.890 L4-L5 Surgical History: - - Cholecystectomy, Lumbar Back Fusion, Belkys fundoplication Psychiatric History: No pertinent psych hx WAGE HAND History: No pertinent WAGE HAND history Smoking Status: Never smoker - *Family History Maternal Family History: Family History (Last Reviewed 12/09/19 @ 16:[address] Lico Hall MD) Father CAD (coronary artery disease) Diabetes Myocardial infarction Alzheimers disease Mother Diabetes AAA (abdominal aortic aneurysm) Brother Multiple sclerosis History Items: Diabetes, - - Mother w/ history of DM, AAA. Paternal Family History: Family History (Last Reviewed 12/09/19 @ 16:[address] Lico Hall MD) Father CAD (coronary artery disease) Diabetes Myocardial infarction Alzheimers disease Mother Diabetes AAA (abdominal aortic aneurysm) Brother Multiple sclerosis History Items: - - Father w/ history of CAD, DM, VT/CAD, Dementia. Sibling Family History: Family History (Last Reviewed 12/09/19 @ 16:[address] Lico Hall MD) Father CAD (coronary artery disease) Diabetes Myocardial infarction Alzheimers disease Mother Diabetes AAA (abdominal aortic aneurysm) Brother Multiple sclerosis History Items: - - Brother w/ history of multiple sclerosis. Review of Systems Cardiovascular: Denies: Chest Pain, Chest Pressure, Chest Tightness, Palpitations Respiratory: Denies: Cough, Hemoptysis, Shortness of breath at rest, Shortness of breath upon exertion, Wheezing Gastrointestinal: Reports: Nausea Patient Problems: Active and Suspected Problems (Last Updated 12/06/19 @ 17:[address] Kranthi Li MD) UTI (urinary tract infection) (Acute) Dysphagia (Acute) Dysphagia (Acute) - Physical Exam Vitals/I&O's: Vital Signs Temp Pulse Resp BP Pulse Ox 97.9 F 89 16 132/75 H 95 12/09/19 14:41 12/09/19 14:41 12/09/19 14:41 12/09/19 14:41 12/09/19 14:41 Oxygen Delivery Method Room Air Weight: 216 lb 0.848 oz Body Mass Index (BMI) 35.9 Intake and Output for Last 24 Hours 12/07/19 12/08/19 12/09/19 23:59 23:59 23:59 Intake Total 4021.25 / 4021.25 1946.25 / 1946.25 1000 / 1000 Output Total 2950 / 2950 2300 / 2300 Balance 1071.25 / 1071.25 -353.75 / -353.75 1000 / 1000 General: Alert, Oriented x3 Lungs: Clear to auscultation Cardiovascular: Regular rate, Regular Rhythm, No murmurs Abdomen: Bowel Sounds Present, Soft, Non Tender, Non-Distended Microbiology Past 72 Hours 12/06/19 15:59 Urine, Clean Catch Urine Culture - Final Presumptive E. coli Laboratory Results 12/08/19 16:18: POC Glucose 355 H 12/08/19 21:09: POC Glucose 314 H 12/09/19 05:17: POC Glucose 176 H 12/09/19 06:00: Sodium 139, Potassium 4.4, Chloride 108 H, Carbon Dioxide 27.0, Anion Gap 4 L, BUN 16, Creatinine 0.79, Estim Creat Clear Calc 43.07, Est GFR (MDRD) Af Amer 91, Est GFR (MDRD) Non-Af 75, BUN/Creatinine Ratio 20.3 H, Glucose 188 H, Calcium 8.5 12/09/19 11:14: POC Glucose 291 H Current Medications Acetaminophen (Tylenol) 650 mg PO Q6H PRN PRN PRN Reason: Pain Score 1-10/Temp > 100.7 F Last Admin: 12/09/19 09:42 Dose: 650 mg Documented by: Al Hydroxide/Mg Hydroxide (Mylanta Ii) 30 ml PO Q6H PRN PRN PRN Reason: Heartburn, indigestion. Albuterol Sulfate (Ventolin Aerosols) 2.5 mg INHALATION Q4H PRN PRN PRN Reason: Shortness of breath, wheezing Atorvastatin Calcium (Lipitor) 10 mg PO QHS [facility] Last Admin: 12/08/19 21:12 Dose: 10 mg Documented by: Cephalexin (Keflex) 500 mg PO Q12 [facility] Last Admin: 12/09/19 09:44 Dose: 500 mg Documented by: Enoxaparin Sodium (Lovenox) 90 mg SC Q12 [facility] Last Admin: 12/09/19 09:45 Dose: 90 mg Documented by: Glimepiride (Amaryl) 2 mg PO QAM@0800 [facility] Last Admin: 12/09/19 09:43 Dose: 2 mg Documented by: Sodium Chloride () 250 mls @ 15 mls/hr IV .[id number] PRN PRN Reason: Saline Flush Insulin Glargine (Lantus (Bkc)) 14 units SC QHS [facility] Insulin Human Lispro (Humalog Kwikpen (Bkc)) 0 unit SC ACHS [facility]; Protocol Last Admin: 12/09/19 11:16 Dose: 4 u Documented by: Levothyroxine Sodium (Synthroid) 125 mcg PO DAILY@0600 [facility] Last Admin: 12/09/19 05:05 Dose: Not Given Documented by: Lisinopril (Zestril) 20 mg PO DAILY [facility] Last Admin: 12/09/19 09:43 Dose: 20 mg Documented by: Nutritional Formula (Lactose Free) (Glucerna Shake) 120 ml PO 4X/DAY [facility] Last Admin: 12/09/19 14:35 Dose: Not Given Documented by: Ondansetron HCl (Zofran) 4 mg IV Q8H PRN PRN PRN Reason: NAUSEA/VOMITING Oxycodone HCl (Oxyir) 5 mg PO Q6H PRN PRN PRN Reason: Pain Score 4-10/10 Pantoprazole Sodium (Protonix) 40 mg PO BID [facility] Last Admin: 12/09/19 09:44 Dose: 40 mg Documented by: Pramipexole Dihydrochloride (Mirapex) 0.5 mg PO TID [facility] Last Admin: 12/09/19 14:38 Dose: 0.5 mg Documented by: Senna/Docusate Sodium (Senokot-S, Oralia-Colace) 2 tablet PO BID PRN PRN PRN Reason: Constipation Sodium Chloride () 10 - 40 ml IV UD PRN PRN Reason: SALINE FLUSH Tolterodine Tartrate (Detrol La) 2 mg PO DAILY [facility] Last Admin: 12/09/19 09:43 Dose: 2 mg Documented by: Tramadol HCl (Ultram) 50 mg PO Q6H PRN PRN PRN Reason: PAIN 1-3/10 Last Admin: 12/07/19 19:22 Dose: 50 mg Documented by: Zolpidem Tartrate (Ambien (Generic)) 5 mg PO QHS PRN PRN PRN Reason: INSOMNIA Assessment/Plan All Active Problems (Last Updated 12/06/19 @ 17:[address] Kranthi Li MD) UTI (urinary tract infection) (Acute) Dysphagia (Acute) Dysphagia (Acute) Plan is to do an EGD tomorrow to evaluate the distal esophagus. Risk benefits to include bleeding infection possible injury to the esophagus procedure was explained to her in simple terms all questions asked were answered and she agrees to proceed Procedure Criteria Procedure Type: Elective COVID Risk Discussion: The surgeon/proceduralist and patient have discussed in detail the risk of exposure to and/or potential harm posed by the COVID-19 virus with having a surgery/procedure at this time versus the risk of delaying the surgery/procedur e. It is not possible to know either the risk of delaying the surgery or procedure or chance of getting an infection with perfect accuracy, but a joint decision was made between the patient and the surgeon/proceduralist to proceed at this time with the scheduled surgery/procedure as indicated on the consent form. Office Visits / Consults: [id number] IP Consult L3
[2019-12-09 17:15] LABS: Bedside Glucose 230 mg/dL (70-110)
[2019-12-09 18:11] LABS: Probe Check PASS; Specimen Processing Control PASS
[2019-12-09] MEDS: 0.9% Saline Lock 10 ML Syringe IV (21:47)
[2019-12-09] MEDS: Ondansetron 4 MG/2 ML Vial IV (21:47)
[2019-12-09 22:01] VITALS: BP 121/72; PULSE 75; RESP 18; TEMP 36.6; O2SAT 96
[2019-12-09 22:06] LABS: Bedside Glucose 221 mg/dL (70-110)
[2019-12-10] VITALS (10 sets, daily range): BP systolic 91–131; BP diastolic 51–70; PULSE 66–102; RESP 16–20; TEMP 36.4–37.3; O2SAT 92–99
[2019-12-10] MEDS: Lactated Ringers 1,000 ML 100 ML IV (06:34)
[2019-12-10 06:36] LABS: ALB/GLOB Ratio 0.9 RATIO (0.9-2.4); AST(SGOT) 20 U/L (15-37); Alanine Aminotransfer ALT/SGPT 28 U/L (13-56); Alkaline Phosphatase 130 U/L (45-117); Anion Gap 4 (5-15); BUN 11 mg/dL (7-18); Calcium,Total 8.5 mg/dL (8.5-10.1); Chloride 107 mmol/L (98-107); Creatinine, Serum 0.69 mg/dL (0.55-1.02); EST Glomerular Filtration Rate 88 mL/min (>60); Est Glom Filt Rate - Afr Amer 107 mL/min (>60); Estimated Creatinine Clearance 43.07 ml/min; Globulin 3.5 g/dL (2.2-4.2); Glucose 162 mg/dL (74-106); Protein, Total 6.5 g/dL (6.4-8.2); Sodium Level 140 mmol/L (136-145)
--- NOTE | 2019-12-10 07:27 | OP.EGD_ITS ---
Patient Name: Aga Walters Procedure Date: 12/10/2019 7:06 AM Date of : 1945 Age: 74 Procedure: Upper GI endoscopy Indications: Esophageal dysphagia Providers: Lico Hall MD Medicines: See the Anesthesia note for documentation of the administered medications Patient Profile: This is a 74 year old female. Refer to note in patient chart for documentation of history and physical. Complications: No immediate complications. Procedure: Pre-Anesthesia Assessment: - Prior to the procedure, a History and Physical was performed, and patient medications and allergies were reviewed. The patient's tolerance of previous anesthesia was also reviewed. The risks and benefits of the procedure and the sedation options and risks were discussed with the patient. All questions were answered, and informed consent was obtained. Prior Anticoagulants: The patient has taken no previous anticoagulant or antiplatelet agents. ASA Grade Assessment: II - A patient with mild systemic disease. After reviewing the risks and benefits, the patient was deemed in satisfactory condition to undergo the procedure. After obtaining informed consent, the endoscope was passed under direct vision. Throughout the procedure, the patient's blood pressure, pulse, and oxygen saturations were monitored continuously. The Endoscope was introduced through the mouth, and advanced to the second part of duodenum. The upper GI endoscopy was performed with moderate difficulty due to abnormal anatomy. Successful completion of the procedure was aided by withdrawing and reinserting the scope. The patient tolerated the procedure well. Scope In: 7:11:32 AM Scope Out: 7:20:40 AM Total Procedure Duration Time 0 hours 9 minutes 8 seconds Findings: A large hiatal hernia was present. No biopsies or other specimens were collected for this exam. A 6 cm hiatal hernia was present. The examined duodenum was normal. No biopsies or other specimens were collected for this exam. Impression: - Large hiatal hernia. No specimens collected. - 6 cm hiatal hernia. Patient has an extremely large hiatal hernia. Approximately 40% of her stomach is in her chest the scope was easily able to traverse this area. But I do not think that her regurgitating symptoms are going to improve until she has a surgical evaluation at a tertiary referral center to have this hernia reduced and a possible Belkys fundoplication - Normal examined duodenum. No specimens collected. Recommendation: - Return patient to hospital lin for ongoing care. - Full liquid diet. - Continue present medications. - Repeat upper endoscopy (date not yet determined) for surveillance. - Return to primary care physician (date not yet determined). Procedure Code(s): --- Professional --- 11159, Esophagogastroduodenoscopy, flexible, transoral; diagnostic, including collection of specimen(s) by brushing or washing, when performed (separate procedure) Diagnosis Code(s): --- Professional --- K44.9, Diaphragmatic hernia without obstruction or gangrene R13.14, Dysphagia, pharyngoesophageal phase CPT copyright 2017 [employer]. All rights reserved. The codes documented in this report are preliminary and upon organizational consultant review may be revised to meet current compliance requirements. MD Lico Campbell MD 12/10/2019 7:27:33 AM This report has been signed electronically. Number of Addenda: 0 Note Initiated On: 12/10/2019 7:06 AM
--- NOTE | 2019-12-10 07:28 | OP.CCLET_ITS ---
12/10/2019 Ramakrishna Rossi Re : Upper GI endoscopy procedure for Aga Walters [place] This procedure was performed on Tuesday, December 10, 2019. My impressions and recommendations are as follows: Impressions : - Large hiatal hernia. No specimens collected. - 6 cm hiatal hernia. Patient has an extremely large hiatal hernia. Approximately 40% of her stomach is in her chest the scope was easily able to traverse this area. But I do not think that her regurgitating symptoms are going to improve until she has a surgical evaluation at a tertiary referral center to have this hernia reduced and a possible Belkys fundoplication - Normal examined duodenum. No specimens collected. Recommendations : - Return patient to hospital lin for ongoing care. - Full liquid diet. - Continue present medications. - Repeat upper endoscopy (date not yet determined) for surveillance. - Return to primary care physician (date not yet determined). My findings are described in the full procedure note, which is enclosed. If I can be of further assistance, please feel free to contact me at Doctor phone number(s): , Fax: [phone], Work: . Sincerely, MD Lico Campbell MD 12/10/2019 7:27:33 AM This report has been signed electronically.
[2019-12-10] MEDS: Glimepiride 2 MG Tablet PO (08:24)
[2019-12-10] MEDS: Pramipexole Di-HCl 0.5 MG Tablet PO ×3 (08:24→21:59)
[2019-12-10] MEDS: Levothyroxine 125 MCG Tablet PO (08:24)
[2019-12-10 09:10] LABS: Bedside Glucose 139 mg/dL (70-110)
[2019-12-10] MEDS: Acetaminophen 325 MG Tablet 650 MG PO ×2 (09:38→20:00)
[2019-12-10] MEDS: Tolterodine Tartrate 2 MG CAP.SA PO (09:39)
[2019-12-10] MEDS: Cephalexin 500 MG Capsule PO ×2 (09:39→21:59)
[2019-12-10] MEDS: Enoxaparin 100 MG/ML Syringe 90 MG SC ×2 (09:40→21:59)
[2019-12-10] MEDS: Pantoprazole Sodium 40 MG Tablet PO ×2 (09:40→21:59)
[2019-12-10] MEDS: Lisinopril 20 MG Tablet PO (09:40)
--- NOTE | 2019-12-10 11:04 | PN_ITS ---
<Boogie Wu - Last Filed: 12/10/19 11:04> Patient Problems: Active and Suspected Problems (Last Reviewed 12/09/19 @ 16:[address] Lico Hall MD) UTI (urinary tract infection) (Acute) Dysphagia (Acute) Dysphagia (Acute) Reason for Visit: dysphagia Subjective: increased regurgitation, nausea, vomiting since EGD. EGD with large hiatal hernia. Pt agreeable to tx to [facility] with preference to [facility] wither [place] or [facility]. Pt without dysuria, fevers, chills, abd joann, sob, cough. Vitals/I&O's: Vital Signs Temp Pulse Resp BP Pulse Ox 98.4 F 76 16 129/62 H 95 12/10/19 08:04 12/10/19 08:04 12/10/19 08:04 12/10/19 08:04 12/10/19 08:04 Oxygen Flow Rate (L/min) 3 Oxygen Delivery Method Room Air Weight: 216 lb 0.848 oz Body Mass Index (BMI) 35.9 Intake and Output for Last 24 Hours 12/08/19 12/09/19 12/10/19 23:59 23:59 23:59 Intake Total 1946.25 / 1946.25 1000 / 1000 500 / 500 Output Total 2300 / 2300 1200 / 1200 750 / 750 Balance -353.75 / -353.75 -200 / -200 -250 / -250 General: Alert, Oriented x3, Cooperative HEENT: Atraumatic, PERRLA, EOMI, Normocephalic Neck: Supple, No JVD, Negative Carotid Bruits Lungs: Clear to auscultation, Normal air movement Cardiovascular: Regular rate, No murmurs Abdomen: Bowel Sounds Present, Soft, Non Tender Extremities: No edema, Capillary Refill Less than 3 Seconds Skin: No rashes, No breakdown Musculoskeletal: No Tenderness to Palpation of Joints or Extremities Neurological: Cranial nerves II-XII grossly intact Psych/Mental Status: Normal Affect, Appropriate, Alert and oriented to time, place, person, mood and affect Microbiology Past 72 Hours 12/06/19 15:59 Urine, Clean Catch Urine Culture - Final Presumptive E. coli Laboratory Results 12/09/19 05:17: POC Glucose 176 H 12/09/19 11:14: POC Glucose 291 H 12/09/19 16:00: COVID-19 ([facility]ITO) Negative 12/09/19 16:28: POC Glucose 230 H 12/09/19 21:52: POC Glucose 221 H 12/10/19 05:38: POC Glucose 139 H 12/10/19 05:41: Sodium 140, Potassium 4.0, Chloride 107, Carbon Dioxide 29.0, Anion Gap 4 L, BUN 11, Creatinine 0.69, Estim Creat Clear Calc 43.07, Est GFR (MDRD) Af Amer 107, Est GFR (MDRD) Non-Af 88, BUN/Creatinine Ratio 16.0, Glucose 162 H, Calcium 8.5, Total Bilirubin 0.30, AST 20, ALT 28, Alkaline Phosphatase 130 H, Total Protein 6.5, Albumin 3.0 L, Globulin 3.5, Albumin/Globulin Ratio 0.9 Current Medications Acetaminophen (Tylenol) 650 mg PO Q6H PRN PRN PRN Reason: Pain Score 1-10/Temp > 100.7 F Last Admin: 12/10/19 09:38 Dose: 650 mg Documented by: Al Hydroxide/Mg Hydroxide (Mylanta Ii) 30 ml PO Q6H PRN PRN PRN Reason: Heartburn, indigestion. Albuterol Sulfate (Ventolin Aerosols) 2.5 mg INHALATION Q4H PRN PRN PRN Reason: Shortness of breath, wheezing Atorvastatin Calcium (Lipitor) 10 mg PO QHS [facility] Last Admin: 12/09/19 22:54 Dose: Not Given Documented by: Cephalexin (Keflex) 500 mg PO Q12 [facility] Last Admin: 12/10/19 09:39 Dose: 500 mg Documented by: Enoxaparin Sodium (Lovenox) 90 mg SC Q12 [facility] Last Admin: 12/10/19 09:40 Dose: 90 mg Documented by: Glimepiride (Amaryl) 2 mg PO QAM@0800 [facility] Last Admin: 12/10/19 08:24 Dose: 2 mg Documented by: Sodium Chloride () 250 mls @ 15 mls/hr IV .[id number] PRN PRN Reason: Saline Flush Cefazolin Sodium () 1 gm in 50 mls @ 100 mls/hr IV Q8 [facility] Insulin Glargine (Lantus (Bkc)) 14 units SC QHS [facility] Last Admin: 12/09/19 21:53 Dose: 14 u Documented by: Insulin Human Lispro (Humalog Kwikpen (Bkc)) 0 unit SC ACHS [facility]; Protocol Last Admin: 12/10/19 05:50 Dose: Not Given Documented by: Levothyroxine Sodium (Synthroid) 125 mcg PO DAILY@0600 [facility] Last Admin: 12/10/19 08:24 Dose: 125 mcg Documented by: Lisinopril (Zestril) 20 mg PO DAILY [facility] Last Admin: 12/10/19 09:40 Dose: 20 mg Documented by: Nutritional Formula (Lactose Free) (Glucerna Shake) 120 ml PO 4X/DAY [facility] Last Admin: 12/10/19 09:39 Dose: Not Given Documented by: Ondansetron HCl (Zofran) 4 mg IV Q8H PRN PRN PRN Reason: NAUSEA/VOMITING Last Admin: 12/09/19 21:47 Dose: 4 mg Documented by: Oxycodone HCl (Oxyir) 5 mg PO Q6H PRN PRN PRN Reason: Pain Score 4-10/10 Pantoprazole Sodium (Protonix) 40 mg PO BID [facility] Last Admin: 12/10/19 09:40 Dose: 40 mg Documented by: Pramipexole Dihydrochloride (Mirapex) 0.5 mg PO TID [facility] Last Admin: 12/10/19 08:24 Dose: 0.5 mg Documented by: Senna/Docusate Sodium (Senokot-S, Oralia-Colace) 2 tablet PO BID PRN PRN PRN Reason: Constipation Sodium Chloride () 10 - 40 ml IV UD PRN PRN Reason: SALINE FLUSH Last Admin: 12/09/19 21:47 Dose: 10 ml Documented by: Tolterodine Tartrate (Detrol La) 2 mg PO DAILY [facility] Last Admin: 12/10/19 09:39 Dose: 2 mg Documented by: Tramadol HCl (Ultram) 50 mg PO Q6H PRN PRN PRN Reason: PAIN 1-3/10 Last Admin: 12/07/19 19:22 Dose: 50 mg Documented by: Zolpidem Tartrate (Ambien (Generic)) 5 mg PO QHS PRN PRN PRN Reason: INSOMNIA STROKE Vital Signs/Narrative: Vital Signs Temp Pulse Resp BP Pulse Ox 12/10/19 08:04 98.4 F 76 16 129/62 H 95 12/10/19 07:45 97.8 F 80 16 128/65 H 95 12/10/19 07:40 78 16 124/69 H 96 12/10/19 07:35 72 16 119/66 96 12/10/19 07:30 82 16 125/67 H 96 12/10/19 07:27 97.6 F L 83 16 129/70 H 93 Medical Necessity - Tobacco Use Smoking Status: Never smoker Assessment/Plan All Active Problems (Last Reviewed 12/09/19 @ 16:[address] Lico Hall MD) UTI (urinary tract infection) (Acute) Dysphagia (Acute) Dysphagia (Acute) 1. Dysphagia 2/2 large hiatal hernia. -Worsening regurgitation -refer to tertiary : initated tx to [place] [facility]. may not be today -continue protonix 2. UTI - will complete ancef today. 3. Uncontrolled DMt2 with hyperglycemia - titrate insulin to response. 4. Hypothyroidism - tsh normal. 5. Hyponatremia - possibly 2/2 thiazide diuretic and/or hyperglycemia. Resolved. 6. Hx Parkinsons 7. hx PE - xarelto held, on lovenox 8. Hx COPD - no exacerbation. prn albuterol 9. HLD - continue statin DVT ppx: lovenox q12 This patient was seen by Boogie Wu PA-C under the supervision of Dr. Osorio <Paola Osorio - Last Filed: 12/10/19 15:55> Vitals/I&O's: Vital Signs Temp Pulse Resp BP Pulse Ox 99.1 F 102 H 16 105/60 92 12/10/19 14:13 12/10/19 14:13 12/10/19 14:13 12/10/19 14:13 12/10/19 14:13 Oxygen Flow Rate (L/min) 3 Oxygen Delivery Method Room Air Weight: 216 lb 0.848 oz Body Mass Index (BMI) 35.9 Intake and Output for Last 24 Hours 12/08/19 12/09/19 12/10/19 23:59 23:59 23:59 Intake Total 1946.25 / 1946.25 1000 / 1000 500 / 500 Output Total 2300 / 2300 1200 / 1200 750 / 750 Balance -353.75 / -353.75 -200 / -200 -250 / -250 Microbiology Past 72 Hours 12/06/19 15:59 Urine, Clean Catch Urine Culture - Final Presumptive E. coli Laboratory Results 12/09/19 16:00: COVID-19 ([facility]) Negative 12/09/19 16:28: POC Glucose 230 H 12/09/19 21:52: POC Glucose 221 H 12/10/19 05:38: POC Glucose 139 H 12/10/19 05:41: Sodium 140, Potassium 4.0, Chloride 107, Carbon Dioxide 29.0, Anion Gap 4 L, BUN 11, Creatinine 0.69, Estim Creat Clear Calc 43.07, Est GFR (MDRD) Af Amer 107, Est GFR (MDRD) Non-Af 88, BUN/Creatinine Ratio 16.0, Glucose 162 H, Calcium 8.5, Total Bilirubin 0.30, AST 20, ALT 28, Alkaline Phosphatase 130 H, Total Protein 6.5, Albumin 3.0 L, Globulin 3.5, Albumin/Globulin Ratio 0.9 12/10/19 11:07: POC Glucose 127 H Current Medications Acetaminophen (Tylenol) 650 mg PO Q6H PRN PRN PRN Reason: Pain Score 1-10/Temp > 100.7 F Last Admin: 12/10/19 09:38 Dose: 650 mg Documented by: Al Hydroxide/Mg Hydroxide (Mylanta Ii) 30 ml PO Q6H PRN PRN PRN Reason: Heartburn, indigestion. Albuterol Sulfate (Ventolin Aerosols) 2.5 mg INHALATION Q4H PRN PRN PRN Reason: Shortness of breath, wheezing Atorvastatin Calcium (Lipitor) 10 mg PO QHS [facility] Last Admin: 12/09/19 22:54 Dose: Not Given Documented by: Cephalexin (Keflex) 500 mg PO Q12 [facility] Last Admin: 12/10/19 09:39 Dose: 500 mg Documented by: Enoxaparin Sodium (Lovenox) 90 mg SC Q12 [facility] Last Admin: 12/10/19 09:40 Dose: 90 mg Documented by: Glimepiride (Amaryl) 2 mg PO QAM@0800 [facility] Last Admin: 12/10/19 08:24 Dose: 2 mg Documented by: Sodium Chloride () 250 mls @ 15 mls/hr IV .[id number] PRN PRN Reason: Saline Flush Insulin Glargine (Lantus ([facility])) 14 units SC QHS [facility] Last Admin: 12/09/19 21:53 Dose: 14 u Documented by: Insulin Human Lispro (Humalog Kwikpen ([facility])) 0 unit SC ACHS [facility]; Protocol Last Admin: 12/10/19 11:16 Dose: Not Given Documented by: Levothyroxine Sodium (Synthroid) 125 mcg PO DAILY@0600 [facility] Last Admin: 12/10/19 08:24 Dose: 125 mcg Documented by: Lisinopril (Zestril) 20 mg PO DAILY [facility] Last Admin: 12/10/19 09:40 Dose: 20 mg Documented by: Nutritional Formula (Lactose Free) (Glucerna Shake) 120 ml PO 4X/DAY [facility] Last Admin: 12/10/19 14:17 Dose: Not Given Documented by: Ondansetron HCl (Zofran) 4 mg IV Q8H PRN PRN PRN Reason: NAUSEA/VOMITING Last Admin: 12/09/19 21:47 Dose: 4 mg Documented by: Oxycodone HCl (Oxyir) 5 mg PO Q6H PRN PRN PRN Reason: Pain Score 4-10/10 Pantoprazole Sodium (Protonix) 40 mg PO BID [facility] Last Admin: 12/10/19 09:40 Dose: 40 mg Documented by: Pramipexole Dihydrochloride (Mirapex) 0.5 mg PO TID [facility] Last Admin: 12/10/19 14:19 Dose: 0.5 mg Documented by: Senna/Docusate Sodium (Senokot-S, Oralia-Colace) 2 tablet PO BID PRN PRN PRN Reason: Constipation Sodium Chloride () 10 - 40 ml IV UD PRN PRN Reason: SALINE FLUSH Last Admin: 12/09/19 21:47 Dose: 10 ml Documented by: Tolterodine Tartrate (Detrol La) 2 mg PO DAILY [facility] Last Admin: 12/10/19 09:39 Dose: 2 mg Documented by: Tramadol HCl (Ultram) 50 mg PO Q6H PRN PRN PRN Reason: PAIN 1-3/10 Last Admin: 12/07/19 19:22 Dose: 50 mg Documented by: Zolpidem Tartrate (Ambien (Generic)) 5 mg PO QHS PRN PRN PRN Reason: INSOMNIA STROKE Vital Signs/Narrative: Vital Signs Temp Pulse Resp BP Pulse Ox 12/10/19 14:13 99.1 F 102 H 16 105/60 92 Assessment/Plan Patient seen by Boogie Wu PA-C under my supervision. Patient seen and examined this morning. SHe feels well and has no complaints. Review of systems otherwise negative. She had EGD today which showed a large hiatal hernia. Recommendation is for transfer to tertiary center. O/E: Vital Signs Temp Pulse Resp BP Pulse Ox 99.1 F 102 H 16 105/60 92 12/10/19 14:13 12/10/19 14:13 12/10/19 14:13 12/10/19 14:13 12/10/19 14:13 General: Alert, Oriented x3, Cooperative HEENT: Atraumatic, PERRLA, EOMI, Normocephalic Neck: Supple, No JVD, Negative Carotid Bruits Lungs: Clear to auscultation, Normal air movement Cardiovascular: Regular rate, No murmurs Abdomen: Bowel Sounds Present, Soft, Non Tender Extremities: No edema, Capillary Refill Less than 3 Seconds Skin: No rashes, No breakdown Musculoskeletal: No Tenderness to Palpation of Joints or Extremities Neurological: Cranial nerves II-XII grossly intact Psych/Mental Status: Normal Affect, Appropriate, Alert and oriented to time, place, person, mood and affect EGD today showed a large hiatal hernia. No biopsies other specimens were taken and size of hiatal hernia was 6 cm. Plan is to transfer patient to a tertiary care center for further management as approximately 40% of her stomach was in her chest and this is likely causing her symptoms. She would therefore needed surgical evaluation. Patient has been accepted at [facility] but is awaiting a bed. Plan is to continue p.o. Keflex for UTI. Rest as per Boogie Wu PA-C's notes which I have reviewed and endorsed. Inpatient E&M: [id number] Subs Hosp L2
[2019-12-10 11:36] LABS: Bedside Glucose 127 mg/dL (70-110)
--- NOTE | 2019-12-10 11:58 | NURSING ---
[id number] face sheet faxed to [facility] [phone]
[2019-12-10] MEDS: Insulin Lispro 100 UNIT/ML INSULN.PEN SC ×2 (16:43→22:03)
[2019-12-10 17:01] LABS: Bedside Glucose 184 mg/dL (70-110)
--- NOTE | 2019-12-10 18:30 | NURSING ---
[facility] bed 4114 bed 2; nurse report [phone]
--- NOTE | 2019-12-10 18:31 | PCM.DC.SUM ---
<Boogie Wu - Last Filed: 12/10/19 18:31> Discharge Date and Diagnosis Date of Admission: 12/06/19 Date of Discharge: 12/10/19 - Primary Discharge Diagnosis Acute Problems: Active Problems (Last Reviewed 12/09/19 @ 16:[address] Lico Hall MD) Dysphagia, meal regurgitation 2/2 severe hiatal hernia UTI - E coli, completed abx Debility, weakness Hyponatremia resolved - Secondary Discharge Diagnosis Chronic Problems: Chronic Problems (Last Reviewed 12/09/19 @ 16:[address] Lico Hall MD) GERD (gastroesophageal reflux disease) (Chronic) Hiatal hernia (Chronic) Lumbar back pain (Chronic) Obesity (BMI 30.0-34.9) (Chronic) Parkinsons disease (Chronic) Pulmonary embolism (Chronic) Premature atrial contractions (Chronic) COPD (chronic obstructive pulmonary disease) (Chronic) Hypertension (Chronic) Hyperlipidemia (Chronic) Diabetes mellitus type II, controlled (Chronic) History of pulmonary embolism (Chronic) Hospital Course and Treatment Imaging Results: DIAGNOSTICS: RAD/Chest 1 View (Portable) IMPRESSION: Normal x-ray examination of the chest. RAD/Esophagus Dual Contrast IMPRESSION: Tertiary contractions of the esophagus with a moderate sized hiatal hernia and gastroesophageal reflux. The 12 mm tablet of barium is trapped at the gastroesophageal junction. EGD Report: Impression: - Large hiatal hernia. No specimens collected. - 6 cm hiatal hernia. Patient has an extremely large hiatal hernia. Approximately 40% of her stomach is in her chest the scope was easily able to traverse this area. But I do not think that her regurgitating symptoms are going to improve until she has a surgical evaluation at a tertiary referral center to have this hernia reduced and a possible Belkys fundoplication - Normal examined duodenum. No specimens collected. Recommendation: - Return patient to hospital lin for ongoing care. - Full liquid diet. - Continue present medications. - Repeat upper endoscopy (date not yet determined) for surveillance. - Return to primary care physician (date not yet determined). Consults: Gen Surg - [place] Operations: None Procedures: EGD Summary of Care Provided: Hospital Course: The patient is a 74 year old F with pmhx of hiatal hernia s/p belkys fundoplication 15 years prior, GERD, DMt2, Parkinsons, COPD, prior PE, HLD who presented to the ER with weakness. The patient revealed that she had not been able to keep food down the entire week leading to admission and this had been progressively worsening for about 2 months. The patient would eat food and feel it become stuck in her throat and later regurgitate it. She was admitted for dysphagia. She also appeared to have a UTI and was placed on rocephin. Her blood sugars were elevated which was attributed to her inability to keep her home meds down. She was hyponatremic possibly due to malnuourishment or either the thiazide diuretics or hyperglycemia. She was stable over the weekend while waiting for her barium swallow monday and actually managed to keep all of her meals down. On monday the barium swallow showed that the barium was trapped at the GE junction. Gen surgery was consulted and an EGD was performed which showed a severe hiatal hernia felt to be causing the blockage. Following this she reverted to being unable to keep food down. The decision was made to transfer to tertiary center for further intervention. She was accepted at [facility] and discharged there in stable condition under the care of Dr. Johnson and to be evaluated by a surgeon Dr. De La Cruz. Also of note she completed 5 days of abx for her UTI - pansensitive e coli. This patient was seen by Boogie Wu PA-C under the supervision of Dr. Osorio. [] - Physical Exam Vitals/I&O's: Vital Signs Temp Pulse Resp BP Pulse Ox 99.1 F 102 H 16 105/60 92 12/10/19 14:13 12/10/19 14:13 12/10/19 14:13 12/10/19 14:13 12/10/19 14:13 Oxygen Flow Rate (L/min) 3 Oxygen Delivery Method Room Air Weight: 216 lb 0.848 oz Body Mass Index (BMI) 35.9 Intake and Output for Last 24 Hours 12/08/19 12/09/19 12/10/19 23:59 23:59 23:59 Intake Total 1946.25 / 1946.25 1000 / 1000 500 / 500 Output Total 2300 / 2300 1200 / 1200 750 / 750 Balance -353.75 / -353.75 -200 / -200 -250 / -250 General: Alert, Oriented x3, Cooperative HEENT: Atraumatic, PERRLA, EOMI, Normocephalic Neck: Supple, No JVD, Negative Carotid Bruits Lungs: Clear to auscultation, Normal air movement Cardiovascular: Regular rate, No murmurs Abdomen: Bowel Sounds Present, Soft, Non Tender Extremities: No edema, Capillary Refill Less than 3 Seconds Skin: No rashes, No breakdown Musculoskeletal: No Tenderness to Palpation of Joints or Extremities Neurological: Cranial nerves II-XII grossly intact Psych/Mental Status: Normal Affect, Appropriate, Alert and oriented to time, place, person, mood and affect Microbiology Past 72 Hours 12/06/19 15:59 Urine, Clean Catch Urine Culture - Final Presumptive E. coli Laboratory Results 12/09/19 21:52: POC Glucose 221 H 12/10/19 05:38: POC Glucose 139 H 12/10/19 05:41: Sodium 140, Potassium 4.0, Chloride 107, Carbon Dioxide 29.0, Anion Gap 4 L, BUN 11, Creatinine 0.69, Estim Creat Clear Calc 43.07, Est GFR (MDRD) Af Amer 107, Est GFR (MDRD) Non-Af 88, BUN/Creatinine Ratio 16.0, Glucose 162 H, Calcium 8.5, Total Bilirubin 0.30, AST 20, ALT 28, Alkaline Phosphatase 130 H, Total Protein 6.5, Albumin 3.0 L, Globulin 3.5, Albumin/Globulin Ratio 0.9 12/10/19 11:07: POC Glucose 127 H 12/10/19 16:41: POC Glucose 184 H Current Medications Acetaminophen (Tylenol) 650 mg PO Q6H PRN PRN PRN Reason: Pain Score 1-10/Temp > 100.7 F Last Admin: 12/10/19 09:38 Dose: 650 mg Documented by: Al Hydroxide/Mg Hydroxide (Mylanta Ii) 30 ml PO Q6H PRN PRN PRN Reason: Heartburn, indigestion. Albuterol Sulfate (Ventolin Aerosols) 2.5 mg INHALATION Q4H PRN PRN PRN Reason: Shortness of breath, wheezing Atorvastatin Calcium (Lipitor) 10 mg PO QHS [facility] Last Admin: 12/09/19 22:54 Dose: Not Given Documented by: Cephalexin (Keflex) 500 mg PO Q12 [facility] Last Admin: 12/10/19 09:39 Dose: 500 mg Documented by: Enoxaparin Sodium (Lovenox) 90 mg SC Q12 [facility] Last Admin: 12/10/19 09:40 Dose: 90 mg Documented by: Glimepiride (Amaryl) 2 mg PO QAM@0800 [facility] Last Admin: 12/10/19 08:24 Dose: 2 mg Documented by: Sodium Chloride () 250 mls @ 15 mls/hr IV .[id number] PRN PRN Reason: Saline Flush Insulin Glargine (Lantus ([facility])) 14 units SC QHS [facility] Last Admin: 12/09/19 21:53 Dose: 14 u Documented by: Insulin Human Lispro (Humalog Kwikpen ([facility])) 0 unit SC ACHS [facility]; Protocol Last Admin: 12/10/19 16:43 Dose: 2 u Documented by: Levothyroxine Sodium (Synthroid) 125 mcg PO DAILY@0600 [facility] Last Admin: 12/10/19 08:24 Dose: 125 mcg Documented by: Lisinopril (Zestril) 20 mg PO DAILY [facility] Last Admin: 12/10/19 09:40 Dose: 20 mg Documented by: Nutritional Formula (Lactose Free) ([email or web address]) 120 ml PO 4X/DAY [facility] Last Admin: 12/10/19 16:45 Dose: Not Given Documented by: Ondansetron HCl (Zofran) 4 mg IV Q8H PRN PRN PRN Reason: NAUSEA/VOMITING Last Admin: 12/09/19 21:47 Dose: 4 mg Documented by: Oxycodone HCl (Oxyir) 5 mg PO Q6H PRN PRN PRN Reason: Pain Score 4-10/10 Pantoprazole Sodium (Protonix) 40 mg PO BID [facility] Last Admin: 12/10/19 09:40 Dose: 40 mg Documented by: Pramipexole Dihydrochloride (Mirapex) 0.5 mg PO TID [facility] Last Admin: 12/10/19 14:19 Dose: 0.5 mg Documented by: Senna/Docusate Sodium (Senokot-S, Oralia-Colace) 2 tablet PO BID PRN PRN PRN Reason: Constipation Sodium Chloride () 10 - 40 ml IV UD PRN PRN Reason: SALINE FLUSH Last Admin: 12/09/19 21:47 Dose: 10 ml Documented by: Tolterodine Tartrate (Detrol La) 2 mg PO DAILY JCARLOS Last Admin: 12/10/19 09:39 Dose: 2 mg Documented by: Tramadol HCl (Ultram) 50 mg PO Q6H PRN PRN PRN Reason: PAIN -06/24 Last Admin: 12/07/19 19:22 Dose: 50 mg Documented by: Zolpidem Tartrate (Ambien (Generic)) 5 mg PO QHS PRN PRN PRN Reason: INSOMNIA Discharge Diet: - - as directed by receiving facility Discharge Activity: - - as directed by receiving facility Home Medications: Medications to take at Discharge Albuterol Sulfate [Proventil Hfa] 2 puff IH Q6H PRN PRN 06/18/13 Fluticasone 110 Mcg [Flovent 110 Mcg] 2 puff INHALATION BID 06/18/13 Levothyroxine [Synthroid] 125 mcg PO DAILY 06/18/13 Tramadol HCl 50 mg PO Q6H PRN PRN 06/18/13 glimepiride 2 mg tablet 2 mg PO QAM 06/19/17 omeprazole 20 mg capsule,delayed release 20 mg PO QDAY 06/19/17 oxybutynin chloride 10 mg tablet,extended release 24 hr 10 mg PO QDAY 06/19/17 Acetaminophen [Acetaminophen 8 Hour] 1,300 mg PO Q6H PRN PRN 07/28/17 Calcium Carbonate [Calcium] 600 mg PO DAILY 07/28/17 Cholecalciferol (VIT D3) [Vitamin D3] 5,000 unit PO DAILY 07/28/17 Dicyclomine HCl 20 mg PO DAILY PRN PRN 07/28/17 Oxycodone [Oxyir] 5 mg PO Q6H PRN PRN 07/28/17 rivaroxaban 20 mg tablet 20 mg PO QDAY 30 Days #30 tab 09/01/17 simvastatin 20 mg tablet 20 mg PO QDAY 90 Days #90 tab 09/01/17 Canagliflozin [Invokana] 100 mg PO DAILY 12/06/19 Lisinopril/Hydrochlorothiazide [Lisinopril-Hctz 20-12.5 mg Tab] 1 tab PO BID 12/06/19 Pramipexole Di-HCl [Mirapex] 0.5 mg PO TID 12/06/19 Primary Care Physician: Ramakrishna Rossi MD [Primary Care Provider] - Disposition: Acute care Hospital Minutes spent on discharge:: 40 Patient Condition:: Stable Medical Necessity - Tobacco Use Smoking Status: Never smoker Meaningful Use Info Meaningful Use Diagnoses (Choose all that apply): None applicable <Paola Osorio - Last Filed: 12/11/19 15:41> Discharge Date and Diagnosis - Secondary Discharge Diagnosis Chronic Problems: Chronic Problems (Last Reviewed 12/09/19 @ 16:[address] Lico Hall MD) GERD (gastroesophageal reflux disease) (Chronic) Hiatal hernia (Chronic) Lumbar back pain (Chronic) Obesity (BMI 30.0-34.9) (Chronic) Parkinsons disease (Chronic) Pulmonary embolism (Chronic) Premature atrial contractions (Chronic) COPD (chronic obstructive pulmonary disease) (Chronic) Hypertension (Chronic) Hyperlipidemia (Chronic) Diabetes mellitus type II, controlled (Chronic) History of pulmonary embolism (Chronic) Hospital Course and Treatment Summary of Care Provided: Patient seen by Boogie Wu PA-C under my supervision The patient is a 74 year old F with a past medical history as outlined which includes a history of hiatal hernia status post Belkys fundoplication about 15 years prior to this admission. She was admitted through the ED with a complaint of weakness and vomiting as well as lethargy. She says she felt like her food was getting stuck in her throat and she would subsequently regurgitate. She was admitted and managed for dysphagia. She was also noted to have UTI and started on IV Rocephin. Her A1c was also markedly elevated and she says she had not been able to keep down her oral diabetes medications because of the vomiting she had been having. She was also hyponatremic which resolved with IV fluid administration. She had a barium swallow which showed a moderate sized hiatal hernia and gastroesophageal reflux with a 12 mm tablet of barium trapped at the gastroesophageal junction. General surgery was consulted and she had EGD which showed a large hiatal hernia with about 40% of her stomach in her chest which was likely causing the symptoms. Patient was therefore transferred to [facility] for further evaluation at a tertiary center. She was transferred to [facility] on 12/10/2019. Patient seen and examined prior to discharge. She felt comfortable and had no complaints. Review of symptoms otherwise negative. Labs and vitals reviewed. Home medication reviewed and reconciled. O/E: Vital Signs Temp Pulse Resp BP Pulse Ox 98.7 F 89 20 H 91/53 L 93 12/10/19 22:17 12/10/19 22:17 12/10/19 22:17 12/10/19 22:17 12/10/19 22:17 [] General: Alert, Oriented x3, Cooperative HEENT: Atraumatic, PERRLA, EOMI, Normocephalic Neck: Supple, No JVD, Negative Carotid Bruits Lungs: Clear to auscultation, Normal air movement Cardiovascular: Regular rate, No murmurs Abdomen: Bowel Sounds Present, Soft, Non Tender Extremities: No edema, Capillary Refill Less than 3 Seconds Skin: No rashes, No breakdown Musculoskeletal: No Tenderness to Palpation of Joints or Extremities Neurological: Cranial nerves II-XII grossly intact Psych/Mental Status: Normal Affect, Appropriate, Alert and oriented to time, place, person, mood and affect Plan is for transfer to [facility]. Rest as per Boogie Wu PA-C's notes which I have reviewed and endorsed. - Physical Exam Vitals/I&O's: Vital Signs Temp Pulse Resp BP Pulse Ox 98.7 F 89 20 H 91/53 L 93 12/10/19 22:17 12/10/19 22:17 12/10/19 22:17 12/10/19 22:17 12/10/19 22:17 Oxygen Flow Rate (L/min) 3 Oxygen Delivery Method Room Air Weight: 216 lb 0.848 oz Body Mass Index (BMI) 35.9 Intake and Output for Last 24 Hours 12/09/19 12/10/19 12/11/19 23:59 23:59 23:59 Intake Total 1000 / 1000 600 / 600 Output Total 1200 / 1200 750 / 750 Balance -200 / -200 -150 / -150 Laboratory Results 12/10/19 16:41: POC Glucose 184 H 12/10/19 21:58: POC Glucose 240 H Inpatient E&M: [id number] Disch Hosp
[2019-12-10] MEDS: Atorvastatin Calcium 10 MG Tablet PO (21:59)
[2019-12-10 22:25] LABS: Bedside Glucose 240 mg/dL (70-110)
[2019-12-10] MEDS: Ondansetron 4 MG/2 ML Vial IV (22:52)
[2019-12-10] MEDS: 0.9% Saline Lock 10 ML Syringe IV (22:52)
--- NOTE | 2019-12-10 23:06 | NURSING ---
[facility] 2306[facility]. zofran given prior to transport. [facility] notified when pt left and pt's son Mikey notified also. no concerns voiced by pt.
== END 2019-12-10 23:06 | disposition short-term general hospital (02) | DRG 690 ==
LOC: ED 16:08 → MS3 18:01
PROVIDERS: Physician Assistant; Surgery; Admitting Provider Hospitalist; Emergency Provider Emergency Medicine; PCP Family Medicine; Visit Provider Student in an Organized Health Care Education/Training Program
PROC: 0DJ08ZZ Inspection of Upper Intestinal Tract, Via Natural or Artificial Opening Endoscopic (ICD-10-PCS; CPT 43235; principal; 2019-12-10 06:55)
DX: N30.00 Acute cystitis without hematuria (principal); E87.1 Hypo-osmolality and hyponatremia; B96.20 Unspecified Escherichia coli [E. coli] as the cause of diseases classified elsewhere; E11.65 Type 2 diabetes mellitus with hyperglycemia; R13.14 Dysphagia, pharyngoesophageal phase; K44.9 Diaphragmatic hernia without obstruction or gangrene; K21.9 Gastro-esophageal reflux disease without esophagitis; E66.9 Obesity, unspecified; E78.5 Hyperlipidemia, unspecified; I49.1 Atrial premature depolarization; I10 Essential (primary) hypertension; J44.9 Chronic obstructive pulmonary disease, unspecified; G47.30 Sleep apnea, unspecified; G20 Parkinson's disease; E03.9 Hypothyroidism, unspecified; K58.9 Irritable bowel syndrome, unspecified; Z96.641 Presence of right artificial hip joint; Z85.828 Personal history of other malignant neoplasm of skin; Z79.4 Long term (current) use of insulin; Z79.899 Other long term (current) drug therapy; Z68.35 Body mass index [BMI] 35.0-35.9, adult; Z86.711 Personal history of pulmonary embolism; Z98.1 Arthrodesis status; Z79.01 Long term (current) use of anticoagulants; Z79.51 Long term (current) use of inhaled steroids; Z79.890 Hormone replacement therapy; Z87.440 Personal history of urinary (tract) infections
CPT/HCPCS: 36415; 71045; 74221; 80048; 80053; 80076; 81001; 82962; 83036; 83605; 84443; 84484; 85025; 85610; 87086; 87088; 87186; 87635; 93005; 94799; 97110; 97116; 97162; 97165; 97530; 97802; 97803; 99285; J7030; J7040; J7120; A4216; J2405; U0003

== ENCOUNTER → 2020-03-09 14:21 | Outpatient (CLI) | payer MEDICARE, SELFPAY ==
[2019-12-06 18:46] VITALS: BMI 35.9
--- NOTE | 2020-03-09 14:24 | RAD_ITS ---
STUDY: X-RAY - LUMBAR SPINE REASON FOR EXAM: Female, 75 years old. fell a week ago, hx of back and hip surgery -- severe pain still TECHNIQUE: 5 view(s) of the lumbar spine were obtained. COMPARISON: CT 11/16/2012 FINDINGS: Normal lumbar lordosis. There is a levoscoliosis of the lumbar spine. No subluxation. Posterior fusion hardware and laminectomies at L2-L5 new since 2012. Lateral fixation of L4-L5 with plate and screws and disc spacer. There is diffuse osteopenia with multilevel spondylosis. Disc space narrowing at L2-L3 and L3-L4. No compression fracture demonstrated. There is no demonstrated spondylolysis of the pars interarticulares. Surgical sutures project in the central pelvis. There are abdominal aortic atherosclerotic calcifications. RAD/L/S Spine Min 4 Views IMPRESSION: 1. No compression fracture. 2. Lumbar fusion with laminectomies at L2-L5. Electronically Signed: Brandan Mcduffie MD ([place]) at 9:01 EST , Service support ,
--- NOTE | 2020-03-09 14:24 | RAD_ITS ---
STUDY: X-RAY - PELVIS AND RIGHT HIP REASON FOR EXAM: Continued right hip pain after a fall a week ago. TECHNIQUE: 2 views of the pelvis and hip. COMPARISON: Radiographs 03/20/2015. FINDINGS: There is osteopenia. There is a small surgical clip overlying the right groin. Normal bilateral iliac wings, sacroiliac joints and visualized sacrum. Normal bilateral superior and inferior pubic rami. Normal pubic symphysis. Normal bilateral ischial tuberosities. There is a right hip arthroplasty without evidence of complication. RAD/HIP, UNI W/ Pelvis 2-3 Views IMPRESSION: Uncomplicated right hip arthroplasty. Electronically Signed: Armani Ramirez MD at 15:10 EST Tel , Service support ,
== END ==
PROVIDERS: PCP Family Medicine; Referring Provider Family Medicine; Visit Provider Family Medicine
DX: M25.551 Pain in right hip (principal); M54.5 Low back pain
CPT/HCPCS: 72110; 73502

== ENCOUNTER 2020-05-15 13:06 | Emergency (ER) | payer MEDICARE, SELFPAY ==
[2019-12-06 18:46] VITALS: BMI 35.9
[2020-05-15 13:07] VITALS: BP 117/63; PULSE 83; RESP 16; TEMP 36.2; O2SAT 96; BMI 34.9
--- NOTE | 2020-05-15 13:27 | EKG12_ITS ---
Test Reason : CP Blood Pressure : / mmHG Vent. Rate : 073 BPM Atrial Rate : 073 BPM P-R Int : 194 ms QRS Dur : 082 ms QT Int : 360 ms P-R-T Axes : 010 007 054 degrees QTc Int : 396 ms Normal sinus rhythm Normal ECG Confirmed by LINA VILLA, ANDREI ([id number]), editor trade journal HILDA EVERETT ([id number]) on 05/18/2020 12:14:53 PM Referred By: SEAN/TREMAINE Confirmed By:ABDIRIZAK MILLS MD
[2020-05-15 13:34] LABS: Absolute Neutrophil Count 6.4 X10^3/uL (2.0-7.7); Basophil# 0.07 X10^3/uL; Basophil% 0.8 % (0-1); Eosinophil# 0.11 X10^3/uL; Eosinophils% 1.2 % (0-5); Hematocrit 39.9 % (37-47); Hemoglobin 12.8 g/dL (12.0-15.0); Lymphocyte % 17.9 % (19-41); Mean Corp Hgb Conc 32.1 g/dL (32-36); Mean Corpuscular Hgb 29.5 pg (27.0-32.0); Mean Corpuscular Volume 91.9 fL (81-99); Mean Platelet Vol. 9.7 fl (6.2-12.0); Monocyte# 0.72 X10^3/uL; NRBC Flagged by Analyzer 0 % (0-5); Neutrophil # 6.43 X10^3/uL (2.7-7.7); Neutrophil % 71.8 % (47-70); Platelet Count 346 K/mm3 (150-450); RBC Distribution Width CV 13.4 % (11.6-14.6); RBC Distribution Width SD 45.7 fl (35.1-43.9); Red Blood Count 4.34 M/mm3 (4.2-5.4)
--- NOTE | 2020-05-15 13:35 | RAD_ITS ---
STUDY: X-RAY CHEST REASON FOR EXAM: Female, 75 years old. ONSET OF CP AROUND 1230. TECHNIQUE: Single AP portable view of the chest. COMPARISON: Comparison is made with prior study dated 12/06/2019. FINDINGS: EKG electrodes are seen. Mild elevation of the right hemidiaphragm. The lungs are clear. There is no demonstrated pleural abnormality. Normal size heart. Normal mediastinum and roderick. Normal visualized pulmonary arteries. There is atherosclerotic calcification of the aortic arch with tortuosity. Normal visualized thoracic spine. There is degenerative osteoarthritis of the bilateral shoulders. Moderate sized hiatal hernia. RAD/Chest 1 View (Portable) IMPRESSION: Moderate sized hiatal hernia. Electronically Signed: Zion Chen MD at 13:57 EST , Service support ,
--- NOTE | 2020-05-15 13:37 | ED.DCSUM_ITS ---
- ER Visit Summary Date of Service: 05/15/20 Chief Complaint: Lower sternal epigastric chest pain History of Present Illness: The patient is a 75 F 3 of insulin-dependent diabetes, hypertension, COPD, PE x2, A. fib on anticoagulation Xarelto and known hiatal hernia and prior esophageal spasm. Patient states that since about 1225 today she had lower sternal and epigastric discomfort. She states he go straight through to her back. Associated nausea. No vomiting or diarrhea. No fever or chills. Minimal shortness of breath. Is not exertional. She states she has had similar discomfort intermittently twice over the last month. She did take 2 baby aspirin today at home. She believes this may be esophageal spasm again but she just wanted checked out. She denies any hemoptysis. Physical Examination: Female no acute distress vital signs stable afebrile. Pulse ox 96% on room air no signs of hypoxia. HEENT exam unremarkable. Neck nontender no lymphadenopathy. Lungs clear to auscultation bilaterally. Heart regular rhythm no murmur. Abdomen soft nontender nondistended normal bowel sounds. No peritoneal signs. Epigastric right upper quadrant completely nontender. There is no hernia or mass. No obstruction. Patient moving all 4 extremities. Calves are nontender without edema or cords. Neurologically patient is awake and alert with no focal motor deficits. Test Results: EKG shows normal sinus rhythm rate of 73 with no acute signs of WA or ischemia. Portable chest x-ray 1 view read and interpreted by myself shows no acute abnormality. It does appear to be a hiatal hernia. Radiologist also read the film and agrees. EKG sinus rhythm rate of 73 no acute signs of WA or ischemia. CBC normal white count 9 hemoglobin 12. Electrolytes unremarkable BUN of 30 creatinine 0.8 gap of 4. Troponin normal. Jacky exam patient is doing well at 2:17 PM. She is completely pain-free. She feels much better after the GI cocktail and Protonix. Clinically I do not think this is cardiac. I did discuss with the patient and offered her a delta troponin. She does not want to wait that long and feel strongly this was her esophageal spasm and reflux. She understands that we cannot completely rule out cardiac etiology with the work-up that we have done. Emergency Department Course and Treatment: Clinically I think this may be esophageal spasm or reflux/right hip hernia. Obviously meeting about a possible cardiac etiology. I have very low suspicion for PE and she is already on anticoagulation has been taking medication regularly. She will undergo cardiac work-up. I am holding the aspirin because she already took 2 at home and should be given GI cocktail and Protonix. Treatment Plan: She is on reflux medication at home. Follow-up with your doctor as needed. Return if worse. Disposition: Discharge Impression: Acute lower chest pain uncertain etiology Acute esophageal spasm History of diabetes History of prior COPD, PE and anticoagulated on Xarelto History of A. fib This note was generated with [employer] dictation software. It may contain incorrect words, spelling, and punctuation that were not noted in review of the chart prior to signing ED Disposition - Plan for ED Patient: Referrals: Ramakrishna Rossi MD [Primary Care Provider] -
[2020-05-15 13:54] LABS: Anion Gap 4 (5-15); BUN 30 mg/dL (7-18); BUN/Creat Ratio 35.5 RATIO (10-20); Calcium,Total 9.3 mg/dL (8.5-10.1); Chloride 103 mmol/L (98-107); Creatinine, Serum 0.84 mg/dL (0.55-1.02); EST Glomerular Filtration Rate 70 mL/min (>60); Est Glom Filt Rate - Afr Amer 84 mL/min (>60); Estimated Creatinine Clearance 50.47 ml/min; Glucose 133 mg/dL (74-106); Potassium 4.1 mmol/L (3.5-5.1); Sodium Level 137 mmol/L (136-145)
[2020-05-15] MEDS: Mag Hydrox/Al Hydrox/Simeth 30 ML UDC PO (13:59)
--- NOTE | 2020-05-15 14:20 | ED.DEP ---
ED Disposition - Plan for ED Patient: Disposition: Home or Assisted Living Instructions: ED Chest Pain, Uncertain Cause Referrals: Ramakrishna Rossi MD [Primary Care Provider] - 3-5 Days if not improving Additional Instructions: Your work-up was negative. Your tests all look good. Most likely this is from your esophageal spasm. Use your GI medications at home as prescribed. You may use extra if needed. Follow-up with your doctor if not improving. Return to the emergency department if you feel worse.
[2020-05-15 15:02] VITALS: BP 115/59; PULSE 73; RESP 16; O2SAT 98
== END 2020-05-15 15:03 | disposition home or self-care (01) ==
PROVIDERS: Emergency Provider Emergency Medicine; PCP Family Medicine
DX: K22.4 Dyskinesia of esophagus (principal); R07.89 Other chest pain; E11.9 Type 2 diabetes mellitus without complications; J44.9 Chronic obstructive pulmonary disease, unspecified; I10 Essential (primary) hypertension; I48.91 Unspecified atrial fibrillation; K44.9 Diaphragmatic hernia without obstruction or gangrene; Z79.01 Long term (current) use of anticoagulants; Z79.4 Long term (current) use of insulin; Z86.711 Personal history of pulmonary embolism
CPT/HCPCS: 71045; 80048; 84484; 85025; 93005; 99285; A4216; J3490

== ENCOUNTER → 2020-05-20 11:48 | Outpatient (CLI) | payer MEDICARE, SELFPAY ==
[2020-05-15 13:07] VITALS: BMI 34.9
== END ==
PROVIDERS: PCP Family Medicine; Visit Provider Family Medicine
DX: N39.0 Urinary tract infection, site not specified (principal); R42 Dizziness and giddiness
CPT/HCPCS: 87077; 87086; 87088; 87186

== ENCOUNTER 2020-06-03 09:35 | Outpatient (RCR) | payer MEDICARE, SELFPAY | END 2020-06-03 23:59 | LOC: IMMUN 09:35 | PROVIDERS: PCP Family Medicine; Visit Provider Family Medicine | DX: Z23 Encounter for immunization (principal) | CPT/HCPCS: 0011A; 0012A; 91301 ==

== ENCOUNTER → 2020-10-12 11:43 | Outpatient (CLI) | payer MEDICARE, SELFPAY ==
[2020-10-12 15:34] LABS: BNP,B-Type NATRIURETIC PEPTIDE 19.9 pg/mL (0-100)
[2020-10-12 16:07] LABS: Anion Gap 9 (5-15); BUN 14 mg/dL (7-18); BUN/Creat Ratio 18.2 RATIO (10-20); Calcium,Total 8.7 mg/dL (8.5-10.1); Chloride 100 mmol/L (98-107); Creatinine, Serum 0.77 mg/dL (0.55-1.02); EST Glomerular Filtration Rate 77 mL/min (>60); Est Glom Filt Rate - Afr Amer 93 mL/min (>60); Glucose 114 mg/dL (74-106); Sodium Level 142 mmol/L (136-145)
[2020-10-12 16:34] LABS: Potassium 2.6 mmol/L (3.5-5.1)
== END ==
PROVIDERS: PCP Family Medicine; Referring Provider Family Medicine; Visit Provider Family Medicine
DX: R60.9 Edema, unspecified (principal); E03.9 Hypothyroidism, unspecified
CPT/HCPCS: 36415; 80048; 83880; 84443

== ENCOUNTER → 2020-10-21 14:03 | Outpatient (CLI) | payer MEDICARE, SELFPAY ==
--- NOTE | 2020-10-21 14:05 | ECHOCS_ITS ---
Reason For Study: CHF Procedure This was a 2D Doppler, Color Flow transthoracic echocardiogram. The study was technically difficult. Contrast injection was performed. Exam performed in department. Left Ventricle Normal LV size. Mild concentric left ventricular hypertrophy. Left ventricular systolic function is normal. Stage 1 diastolic dysfunction. No regional wall motion abnormalities noted. Right Ventricle Normal RV size. Normal systolic function. Atria Normal left atrium. Normal right atrium. Mitral Valve Normal mitral valve. Tricuspid Valve Normal tricuspid valve. Mild tricuspid valve insufficiency. Pulmonary artery systolic pressure is 25 mmHg. Aortic Valve Normal aortic valve. Trisinus/trileaflet aortic valve. Pulmonic Valve Normal pulmonic valve. Great Vessels Normal aortic root. The pulmonary artery is normal size. Normal inferior vena cava. Pericardium/Pleural Trivial pericardial effusion. Medication 22 gauge I.V. with prn adaptor inserted into left arm. Diluted definity 3ml given slow IV push to enhance endocardial definition. MMode/2D Measurements & Calculations LVIDd: 4.4 cm IVSd: 1.2 cm LAV(MOD-bp): 43.6 ml LVIDs: 3.7 cm LVPWd: 1.3 cm FS: 16.5 % LAV(MOD-bp) Indexed: 21.3 ml/m2 LAV(MOD-sp2): 31.8 ml LAV(MOD-sp4): 54.8 ml LA A4 area: 18.5 cm2 RA A4 area: 16.4 cm2 Time Measurements MV dec time: 0.24 sec Doppler Measurements & Calculations MV E max franck: 69.1 cm/sec Lat Peak E' Franck: 6.7 cm/sec Med Peak E' Franck: 4.5 cm/sec MV A max franck: 96.3 cm/sec E/E' lat: 10.3 E/E' med: 15.5 MV E/A: 0.72 MV V2 max: 94.4 cm/sec MV P1/2t max franck: 80.8 cm/sec Ao V2 max: 163.5 cm/sec MV max P.6 mmHg MV P1/2t: 79.8 msec Ao max P.7 mmHg MV V2 mean: 52.1 cm/sec MV mean P.3 mmHg MV dec slope: 296.5 cm/sec2 MV V2 VTI: 27.3 cm MVA(P1/2t): 2.8 cm2 LV V1 max: 108.4 cm/sec PA V2 max: 109.8 cm/sec TR max franck: 239.3 cm/sec LV V1 max P.7 mmHg TR max P.9 mmHg ECHO/Echo Complete W/ Contrast Interpretation Summary Normal LV size. Left ventricular systolic function is normal. Stage 1 diastolic dysfunction. Mild concentric left ventricular hypertrophy. Contrast injection was performed. Ordering Physician: Ramakrishna Rossi Referring Physician: Ramakrishna Rossi Performed By: Srikanth Stoll RCS
== END ==
PROVIDERS: PCP Family Medicine; Referring Provider Family Medicine; Visit Provider Family Medicine
DX: R06.00 Dyspnea, unspecified (principal); I50.9 Heart failure, unspecified
CPT/HCPCS: 93306; Q9957; A4216; C8929; J3490

== ENCOUNTER 2020-12-12 08:37 | Emergency (ER) | payer MEDICARE, SELFPAY ==
[2020-12-12 08:39] VITALS: BP 143/76; PULSE 74; RESP 18; TEMP 36.6; O2SAT 99; BMI 34.9
--- NOTE | 2020-12-12 09:03 | EKG12_ITS ---
Test Reason : CP Blood Pressure : / mmHG Vent. Rate : 073 BPM Atrial Rate : 073 BPM P-R Int : 192 ms QRS Dur : 084 ms QT Int : 376 ms P-R-T Axes : 032 000 004 degrees QTc Int : 414 ms Sinus rhythm with occasional Premature ventricular complexes Otherwise normal ECG Confirmed by JOE VILLA, SUNITHA ([id number]), index editor HILDA EVERETT ([id number]) on 12/14/2020 12:28:45 PM Referred By: CARLY Confirmed By:SUNITHA DIAZ MD
--- NOTE | 2020-12-12 09:03 | RAD_ITS ---
STUDY: X-RAY CHEST REASON FOR EXAM: Female, 75 years old. chest pain TECHNIQUE: AP upright COMPARISON: 05/15/2020, 12/06/2019 FINDINGS: The lungs are clear and expanded. There is no demonstrated pleural abnormality. Normal size heart. Normal mediastinum and roderick. Normal visualized pulmonary arteries. There is atherosclerotic calcification of the aortic arch. Normal visualized thoracic spine. Normal visualized ribs, clavicles, and shoulders. There is a moderately large hiatal hernia. This was present previously RAD/Chest 1 View (Portable) IMPRESSION: Normal x-ray examination of the chest. Electronically Signed: Janet Paniagua MD at 10:19 EDT , Service support ,
--- NOTE | 2020-12-12 09:03 | CT_ITS ---
STUDY: CT ABDOMEN AND PELVIS WITHOUT CONTRAST REASON FOR EXAM: Female, 75 years old. Pain RADIATION DOSAGE (If Supplied By Facility): CTDIvol = ( 24.70 ) mGy, DLP = ( 1274.30 ) mGycm TECHNIQUE: Transaxial images were obtained from the dome of the diaphragm to the symphysis pubis without oral contrast, and without intravenous contrast. Sagittal and coronal images were reconstructed. Individualized dose optimization techniques were used for this CT. COMPARISON: CT abdomen and pelvis 11/16/2012 FINDINGS: The visualized lung bases are unremarkable. The visualized portions of the heart are within normal limits. Mild coronary artery atherosclerosis noted Normal liver. Normal gallbladder and extrahepatic biliary system. Normal spleen. Normal pancreas. Normal bilateral adrenal glands. Normal right kidney. Normal left kidney. Suspect bilateral parapelvic cysts. Moderately large hiatal hernia present. This hernia appears larger than in 2013. Normal small intestine. Normal colon. The appendix is visualized and appears normal. There is diffuse atherosclerotic calcification of the abdominal aorta, without a demonstrated aneurysm. Normal inferior vena cava. Normal retroperitoneum. Normal urinary bladder. Prior oophorectomy. Atrophic uterus. Normal abdominal wall. There has been prior lumbar fusion surgery. Right hip arthroplasty present. CT/Abdomen/Pelvis without Cont IMPRESSION: Moderately large hiatal hernia, larger than that seen in 2012. No acute intra-abdominal or pelvic abnormality. Electronically Signed: Janet Paniagua MD at 10:49 EDT , Service support ,
[2020-12-12 09:15] LABS: Absolute Lymphocyte Count 1.48 X10^3/uL (0.83-4.51); Absolute Neutrophil Count 5.1 X10^3/uL (2.0-7.7); Basophil# 0.05 X10^3/uL; Basophil% 0.7 % (0-1); Eosinophil# 0.14 X10^3/uL; Eosinophils% 1.9 % (0-5); Hemoglobin 13.8 g/dL (12.0-15.0); Lymphocyte # 1.48 X10^3/ul (0.83-4.51); Lymphocyte % 19.8 % (19-41); Mean Corp Hgb Conc 32.1 g/dL (32-36); Mean Corpuscular Hgb 28.1 pg (27.0-32.0); Mean Corpuscular Volume 87.6 fL (81-99); Mean Platelet Vol. 9.9 fl (6.2-12.0); Monocyte# 0.71 X10^3/uL; Monocyte% 9.5 % (0-10); NRBC Flagged by Analyzer 0 % (0-5); Neutrophil # 5.08 X10^3/uL (2.7-7.7); Neutrophil % 67.8 % (47-70); Platelet Count 343 K/mm3 (150-450); RBC Distribution Width CV 13.6 % (11.6-14.6); RBC Distribution Width SD 43.7 fl (35.1-43.9); Red Blood Count 4.91 M/mm3 (4.2-5.4); White Blood Count 7.5 K/mm3 (4.4-11.0)
[2020-12-12 09:25] LABS: Anion Gap 7 (5-15); BUN 16 mg/dL (7-18); BUN/Creat Ratio 21.8 RATIO (10-20); Calcium,Total 9.3 mg/dL (8.5-10.1); Chloride 100 mmol/L (98-107); Creatinine, Serum 0.74 mg/dL (0.55-1.02); EST Glomerular Filtration Rate 81 mL/min (>60); Est Glom Filt Rate - Afr Amer 98 mL/min (>60); Estimated Creatinine Clearance 42.39 ml/min; Glucose 155 mg/dL (74-106); Lipase 181 U/L (73-393); Potassium 4.6 mmol/L (3.5-5.1); Sodium Level 136 mmol/L (136-145); Troponin-I HS 7 pg/mL (3.0-54.0)
[2020-12-12 13:25] LABS: Troponin-I HS 7 pg/mL (3.0-54.0)
[2020-12-12] MEDS: Acetaminophen 500 MG Tablet 1000 MG PO (13:35)
--- NOTE | 2020-12-12 14:21 | EX.ED.DYSGE1 ---
HPI History of Present Illness Chief Complaint: Abd Pain Narrative Narrative: Patient presents with esophageal spasming/chest pain that she has had since last night/early this morning. She also states that she began having left lower quadrant pain. It has settled into the left upper quadrant and the left part of her chest. This is how she feels when she gets esophageal spasms. She states she has a known hiatal hernia, that was diagnosed in November of last year. She has past medical history of atrial fibrillation on Xarelto, and gastroparesis. She states that she knows that she has a moderately sized hiatal hernia and recently saw a surgeon at the [facility] who was willing to perform surgery to fix her hiatal hernia, but with her diagnosis of gastroparesis, was referred to a GI doctor, who said that they would not be able to perform any gastroparesis surgery as needed because her esophagus is weak. She presents with the same pain that she has had with previous esophageal spasming. She presents because of the location and is having pain in the left side of her lower chest also. She has past medical history of hypertension and hyperlipidemia also. She presents for evaluation. She denies any exacerbating or alleviating factors. [facility] Medical History (Updated 12/12/20 @ 14:29 by Mark Farmer MD) Asthma COPD (chronic obstructive pulmonary disease) Depression Diabetes mellitus type II, controlled Essential hypertension GERD (gastroesophageal reflux disease) Hiatal hernia History of basal cell carcinoma (BCC) History of DVT (deep vein thrombosis) History of pulmonary embolism Hyperlipidemia Hypothyroidism IBS (irritable bowel syndrome) Kidney disease Lumbar back pain Lung disease Obesity (BMI 30.0-34.9) JHONY (obstructive sleep apnea) Osteoarthritis Parkinsons disease Premature atrial contractions Seizure disorder Sleep apnea Symptomatic bradycardia Home Medications levothyroxine 125 mcg PO DAILY 06/18/13 [History Last Taken 07/20/13] omeprazole 20 mg capsule,delayed release 20 mg PO QDAY 06/19/17 [History Last Taken Unknown] cholecalciferol (vitamin D3) 5,000 unit PO DAILY 07/28/17 [History Last Taken Unknown] rivaroxaban 20 mg tablet 20 mg PO QDAY 30 Days #30 tab 09/01/17 [History Last Taken Unknown] simvastatin 20 mg tablet 20 mg PO QDAY 90 Days #90 tab 09/01/17 [History Last Taken Unknown] B-complex with vitamin C 1 tab PO DAILY 12/04/20 [History Last Taken Unknown] albuterol sulfate 90 mcg/actuation aerosol inhaler 2 puff INHALATION Q4H PRN g 12/04/20 [History Last Taken Unknown] canagliflozin 300 mg tablet 300 mg PO QAM 12/04/20 [History Last Taken Unknown] duloxetine 60 mg capsule,delayed release 60 mg PO DAILY 12/04/20 [History Last Taken Unknown] furosemide 40 mg tablet 40 mg PO BID 12/04/20 [History Last Taken Unknown] insulin glargine 100 unit/mL (3 mL) subcutaneous pen 20 unit SUBCUT QAM 12/04/20 [History Last Taken Unknown] lubiprostone 24 mcg capsule 24 mcg PO BID 12/04/20 [History Last Taken Unknown] pramipexole 0.75 mg tablet 0.75 mg PO BID tab 12/04/20 [History Last Taken Unknown] spironolactone 50 mg tablet 50 mg PO DAILY #90 tab 12/04/20 [Rx Last Taken Unknown] tramadol 50 mg tablet 50 mg PO DAILY PRN tab 12/04/20 [History Last Taken Unknown] zinc gluconate 30 mg tablet 30 mg PO DAILY 12/04/20 [History Last Taken Unknown] Allergy/AdvReac Type Severity Reaction Status Date / Time nitrofurantoin Allergy Hives Verified 05/15/20 13:10 macrocrystalline [From Macrodantin] rosuvastatin [From Crestor] AdvReac Severe Muscle Verified 05/15/20 13:10 weakness colesevelam [From WelChol] AdvReac Intermediate nausea Verified 05/15/20 13:10 nitrofurantoin AdvReac Intermediate Hives Verified 05/15/20 13:10 [From Furadantin] metformin AdvReac Unknown Gi side Verified 12/04/20 14:20 effects MAPLE TREES Allergy Hives Uncoded 12/12/20 08:44 DAIRY AdvReac Upset Uncoded 12/12/20 08:44 Stomach Family History Father CAD (coronary artery disease) Diabetes Myocardial infarction Alzheimers disease Hypertension Parkinson's disease Cancer melanoma History of blood clots Mother Diabetes AAA (abdominal aortic aneurysm) Bleeding disorder Colon cancer Thyroid disorder Brother Multiple sclerosis Skin cancer Surgical History History of cholecystectomy History of lumbar fusion (~2012) History of [place] fundoplication History of right hip replacement (~07/08/15) History of tonsillectomy and adenoidectomy Hx of hernia repair Hx of lumbar discectomy Social History (Updated 09/01/17 @ 11:[address] Rolando Gómez MD) Smoking Status: Never smoker alcohol intake: never substance use type: does not use diet: diabetic and gluten free caffeine: No what type of physical activity do you participate in: none seatbelt use: always do you feel safe at home: Yes ROS ROS ED ROS Narrative Constitutional: No fever, no chills. HEENT: No sore throat. No neck pain. No loss of vision. No rhinorrhea. Cardiovascular: Left-sided chest pain. Esophageal spasm. No palpitations. No pedal edema. Respiratory: No cough, no shortness of breath. Abdominal: Left lower quadrant to left upper quadrant abdominal pain. No nausea. No vomiting. Genitourinary: No dysuria. No hematuria. Musculoskeletal: No myalgias. No arthralgias. Neurologic: No headaches. No dizziness. No lightheadedness. Skin: No rash. No change in color. Psychiatric: No depression. No anxiety. EXAM Physical Exam Narrative Exam Narrative: Afebrile. Vital signs noted. HEENT: Normocephalic. Atraumatic. PERRL, EOMI. Neck soft and supple. No point tenderness or step off. Cardiovascular: Regular rate and rhythm. No murmurs, rubs, or gallops appreciated. Respiratory: No tachypnea. Lungs clear to auscultation bilaterally. Gastrointestinal: Abdomen soft, nontender, with normoactive bowel sounds. No rebound or guarding. Neurological: Awake. Alert. Nonfocal, nonlateralizing. Skin: No rash. Normal color. No pallor. Musculoskeletal: No pedal edema. Full range of motion extremities. Const Vital Signs: 12/12/20 08:39 12/12/20 09:23 Temperature 98 F Temperature Source Temporal Pulse Rate 74 Respiratory Rate 18 Blood Pressure 143/76 H Blood Pressure Mean 98 Pulse Ox 99 Oxygen Delivery Method Room Air Room Air MDM MDM MDM Narrative Medical decision making narrative: I reviewed her prior records. She has multiple visits for atypical chest pain. Her most recent visit was in April with the same type of esophageal spasm symptoms. Comprehensive work-up was pursued. EKG demonstrates normal sinus rhythm at 73 bpm with PVCs. She states she took aspirin this morning because of the pain. CBC is normal with a normal white count of 7.5, hemoglobin stable at 13.8. Troponin, high-sensitivity is negative at seven, repeat is also negative at seven. Her EKG demonstrates normal sinus rhythm at 73 bpm without ectopy or acute ST changes. Her electrolyte panel is grossly unremarkable. Lipase is normal at 181. BNP is also normal at 11. Her chest x-ray shows a moderately sized hiatal hernia. I did obtain a CT of the abdomen and pelvis without contrast which did show the moderately sized hiatal hernia. Although she states that she was diagnosed in November of last year, it was noted that she had a hiatal hernia on a CT in 2012. At this point in time, upon repeat examination, she states that she has not having any pain any longer and no spasming. She was told that if the pain should return that I would give her a GI cocktail. As her second troponin is negative, I do think this is very atypical chest pain most likely related to her hiatal hernia. She will follow up with her surgeon at the [facility]. I feel she be discharged safely home with follow-up. Return instructions to the emergency department were reviewed. Disposition was discharged home in stable condition. Lab Data Attestation: I reviewed the patient's lab results. Labs: Laboratory Results - last 24 hr 12/12/20 12/12/20 12/12/20 08:44 08:44 08:44 WBC 7.5 RBC 4.91 Hgb 13.8 Hct 43.0 MCV 87.6 MCH 28.1 MCHC 32.1 RDW Std Deviation 43.7 RDW Coeff of Basilio 13.6 Plt Count 343 MPV 9.9 Immature Gran % (Auto) 0.300 Neut % (Auto) 67.8 Lymph % (Auto) 19.8 [place] % (Auto) 9.5 Eos % (Auto) 1.9 Baso % (Auto) 0.7 Absolute Neuts (auto) 5.1 Absolute Lymphs (auto) 1.48 Nucleated RBC % 0 Sodium 136 Potassium 4.6 Chloride 100 Carbon Dioxide 29.0 Anion Gap 7 BUN 16 Creatinine 0.74 Estim Creat Clear Calc 42.39 Est GFR (MDRD) Af Amer 98 Est GFR (MDRD) Non-Af 81 BUN/Creatinine Ratio 21.8 H Glucose 155 H Calcium 9.3 Troponin I High Sens 7 B-Natriuretic Peptide 11.0 Lipase 181 12/12/20 12:38 WBC RBC Hgb Hct MCV MCH MCHC RDW Std Deviation RDW Coeff of Basilio Plt Count MPV Immature Gran % (Auto) Neut % (Auto) Lymph % (Auto) [place] % (Auto) Eos % (Auto) Baso % (Auto) Absolute Neuts (auto) Absolute Lymphs (auto) Nucleated RBC % Sodium Potassium Chloride Carbon Dioxide Anion Gap BUN Creatinine Estim Creat Clear Calc Est GFR (MDRD) Af Amer Est GFR (MDRD) Non-Af BUN/Creatinine Ratio Glucose Calcium Troponin I High Sens 7 B-Natriuretic Peptide Lipase Radiography Diagnostic Testing: Radiology Impression Abdomen/Pelvis CT 12/12/20 09:03 IMPRESSION: Moderately large hiatal hernia, larger than that seen in 2013. No acute intra-abdominal or pelvic abnormality. Electronically Signed: Janet Paniagua MD at 10:49 EDT , Service support , Chest X-Ray 12/12/20 09:03 IMPRESSION: Normal x-ray examination of the chest. Electronically Signed: Janet Paniagua MD at 10:19 EDT , Service support , Discharge Plan Triage Chief Complaint: Abd Pain ED Provider: Mark Farmer Dx/Rx/DC Orders Clinical Impression: Esophageal spasm, Atypical chest pain, Hiatal hernia Instructions: ED Chest Pain, Uncertain Cause, ED Esophageal Spasm, ED Hiatal Hernia Prescriptions: No Action omeprazole 20 mg capsule,delayed release(DR/EC) 20 mg PO QDAY RF: 0 rivaroxaban 20 mg tablet 20 mg PO QDAY 30 Days Qty: 30 RF: 0 simvastatin 20 mg tablet 20 mg PO QDAY 90 Days Qty: 90 RF: 0 lubiprostone [Amitiza] 24 mcg capsule 24 mcg PO BID RF: 0 duloxetine 60 mg capsule,delayed release(DR/EC) 60 mg PO DAILY RF: 0 furosemide 40 mg tablet 40 mg PO BID RF: 0 Invokana 300 mg tablet 300 mg PO QAM RF: 0 Lantus Solostar U-100 Insulin 100 unit/mL (3 mL) insulin pen 20 unit subcut QAM RF: 0 pramipexole 0.75 mg tablet 0.75 mg PO BID RF: 0 B-complex with vitamin C Tablet 1 tab PO DAILY RF: 0 zinc gluconate 30 mg tablet 30 mg PO DAILY RF: 0 spironolactone 50 mg tablet 50 mg PO DAILY Qty: 90 RF: 2 levothyroxine 125 MCG tablet 125 mcg PO DAILY RF: 0 albuterol sulfate 90 mcg/actuation HFA aerosol inhaler 2 puff inhalation Q4H PRN (Reason: Sob &/Or Wheezing) RF: 0 tramadol 50 mg tablet 50 mg PO DAILY PRN (Reason: Pain) RF: 0 cholecalciferol (vitamin D3) 1,000 UNIT tablet 5,000 unit PO DAILY RF: 0 Primary Care Provider: Ramakrishna Rossi Referrals: Ramakrishna Rossi MD [Primary Care Provider] - 3-5 Days Disposition Disposition: Home, Self Care
[2020-12-12 14:48] VITALS: BP 126/62; PULSE 69; RESP 17; RESP 18
== END 2020-12-12 14:49 | disposition home or self-care (01) ==
PROVIDERS: Emergency Provider Emergency Medicine; PCP Family Medicine
DX: R07.89 Other chest pain (principal); K22.4 Dyskinesia of esophagus; K44.9 Diaphragmatic hernia without obstruction or gangrene; I10 Essential (primary) hypertension; E78.5 Hyperlipidemia, unspecified; I48.91 Unspecified atrial fibrillation; E03.9 Hypothyroidism, unspecified; E11.9 Type 2 diabetes mellitus without complications; F32.9 Major depressive disorder, single episode, unspecified; G20 Parkinson's disease; G47.33 Obstructive sleep apnea (adult) (pediatric); J44.9 Chronic obstructive pulmonary disease, unspecified; K21.9 Gastro-esophageal reflux disease without esophagitis; K58.9 Irritable bowel syndrome, unspecified; M19.90 Unspecified osteoarthritis, unspecified site; Z79.01 Long term (current) use of anticoagulants; Z79.4 Long term (current) use of insulin; Z86.711 Personal history of pulmonary embolism; Z86.718 Personal history of other venous thrombosis and embolism; Z96.641 Presence of right artificial hip joint; Z90.49 Acquired absence of other specified parts of digestive tract
CPT/HCPCS: 71045; 74176; 80048; 83690; 83880; 84484; 85025; 93005; 99284; A4216

== ENCOUNTER → 2020-12-14 11:06 | Outpatient (CLI) | payer MEDICARE, SELFPAY ==
[2020-12-14 12:39] LABS: Anion Gap 4 (5-15); BUN 18 mg/dL (7-18); BUN/Creat Ratio 21.2 RATIO (10-20); Calcium,Total 9.7 mg/dL (8.5-10.1); Chloride 102 mmol/L (98-107); Creatinine, Serum 0.85 mg/dL (0.55-1.02); EST Glomerular Filtration Rate 69 mL/min (>60); Est Glom Filt Rate - Afr Amer 83 mL/min (>60); Glucose 287 mg/dL (74-106); Potassium 4.8 mmol/L (3.5-5.1); Sodium Level 136 mmol/L (136-145)
== END ==
PROVIDERS: PCP Family Medicine; Referring Provider Internal Medicine Cardiovascular Disease; Visit Provider Internal Medicine Cardiovascular Disease
DX: R60.9 Edema, unspecified (principal)
CPT/HCPCS: 36415; 80048

== ENCOUNTER 2021-01-23 19:29 | Emergency (ER) | payer MEDICARE, SELFPAY ==
[2021-01-23 19:30] VITALS: BP 139/90; PULSE 99; RESP 20; TEMP 36.7; O2SAT 94; BMI 34.7
--- NOTE | 2021-01-23 19:43 | EKG12_ITS ---
Test Reason : DYSRYTHMIA Blood Pressure : / mmHG Vent. Rate : 082 BPM Atrial Rate : 082 BPM P-R Int : 192 ms QRS Dur : 076 ms QT Int : 368 ms P-R-T Axes : 011 001 020 degrees QTc Int : 429 ms Normal sinus rhythm Normal ECG Confirmed by JOE VILLA, SUNITHA ([id number]), newspaper managing editor HILDA EVERETT ([id number]) on 01/26/2021 9:34:54 AM Referred By: MIRNA Confirmed By:SUNITHA DIAZ MD
--- NOTE | 2021-01-23 19:43 | RAD_ITS ---
EXAM: XR Chest, 1 View CLINICAL INDICATION: 75 years old, Female; cough TECHNIQUE: Frontal view of the chest. This report was created using [employer] report generation technology. COMPARISON: Chest x-ray dated 01/22/2021 FINDINGS: Lungs and pleural spaces: Atelectasis in the lung bases. No pneumothorax. No effusion. Heart: Unremarkable. Cardiac silhouette not enlarged. Mediastinum: Large esophageal hiatal hernia. Bones/joints: Unremarkable. Soft tissues: Unremarkable. Vasculature: Calcified aorta. RAD/Chest 1 View (Portable) IMPRESSION: Large esophageal hiatal hernia. ASSESSMENT: ABNORMAL report - There are abnormal findings in this report which may be related or unrelated to the reason for the exam. Electronically Signed: Abram Flores MD at 20:25 EDT Tel , Service support ,
[2021-01-23 19:44] VITALS: O2SAT 96
[2021-01-23 19:49] VITALS: RESP 24; O2SAT 95
[2021-01-23 20:05] LABS: Absolute Lymphocyte Count 1.17 X10^3/uL (0.83-4.51); Absolute Neutrophil Count 7.1 X10^3/uL (2.0-7.7); Basophil# 0.07 X10^3/uL; Basophil% 0.8 % (0-1); Eosinophil# 0.22 X10^3/uL; Eosinophils% 2.4 % (0-5); Hematocrit 40.7 % (37-47); Hemoglobin 13.1 g/dL (12.0-15.0); Lymphocyte # 1.17 X10^3/ul (0.83-4.51); Lymphocyte % 12.6 % (19-41); Mean Corp Hgb Conc 32.2 g/dL (32-36); Mean Corpuscular Hgb 28.1 pg (27.0-32.0); Mean Corpuscular Volume 87.2 fL (81-99); Mean Platelet Vol. 10.4 fl (6.2-12.0); Monocyte# 0.76 X10^3/uL; Monocyte% 8.2 % (0-10); NRBC Flagged by Analyzer 0 % (0-5); Neutrophil # 7.05 X10^3/uL (2.7-7.7); Neutrophil % 75.7 % (47-70); Platelet Count 295 K/mm3 (150-450); RBC Distribution Width CV 15.1 % (11.6-14.6); RBC Distribution Width SD 47.5 fl (35.1-43.9); Red Blood Count 4.67 M/mm3 (4.2-5.4); White Blood Count 9.3 K/mm3 (4.4-11.0)
[2021-01-23 20:26] LABS: Anion Gap 8 (5-15); BUN 20 mg/dL (7-18); BUN/Creat Ratio 21.1 RATIO (10-20); Calcium,Total 8.4 mg/dL (8.5-10.1); Chloride 99 mmol/L (98-107); Creatinine, Serum 0.95 mg/dL (0.55-1.02); EST Glomerular Filtration Rate 61 mL/min (>60); Est Glom Filt Rate - Afr Amer 73 mL/min (>60); Estimated Creatinine Clearance 44.63 ml/min; Glucose 308 mg/dL (74-106); Potassium 4.2 mmol/L (3.5-5.1); Sodium Level 136 mmol/L (136-145)
--- NOTE | 2021-01-23 20:56 | EDS_ITS ---
HPI History of Present Illness Chief Complaint: Shortness of Breath Informant: patient Narrative Narrative: 75-year-old female presents with cough and shortness of breath. Patient states that she was seen at an urgent care yesterday had a negative Covid test and was started on azithromycin for bronchitis. She notes a history of asthma. She states that she has an inhaler at home but it is old. She feels herself wheezing. No reported fevers. She does not wear home oxygen. [facility] Medical History Asthma COPD (chronic obstructive pulmonary disease) Depression Diabetes mellitus type II, controlled Essential hypertension GERD (gastroesophageal reflux disease) Hiatal hernia History of basal cell carcinoma (BCC) History of DVT (deep vein thrombosis) History of pulmonary embolism Hyperlipidemia Hypothyroidism IBS (irritable bowel syndrome) Kidney disease Lumbar back pain Lung disease Obesity (BMI 30.0-34.9) JHONY (obstructive sleep apnea) Osteoarthritis Parkinsons disease Premature atrial contractions Seizure disorder Sleep apnea Symptomatic bradycardia Home Medications levothyroxine 125 mcg PO DAILY 06/18/13 [History Last Taken 07/20/13] omeprazole 20 mg capsule,delayed release 20 mg PO QDAY 06/19/17 [History Last Taken Unknown] cholecalciferol (vitamin D3) 5,000 unit PO DAILY 07/28/17 [History Last Taken Unknown] rivaroxaban 20 mg tablet 20 mg PO QDAY 30 Days #30 tab 09/01/17 [History Last Taken Unknown] simvastatin 20 mg tablet 20 mg PO QDAY 90 Days #90 tab 09/01/17 [History Last Taken Unknown] B-complex with vitamin C 1 tab PO DAILY 12/04/20 [History Last Taken Unknown] albuterol sulfate 90 mcg/actuation aerosol inhaler 2 puff INHALATION Q4H PRN g 12/04/20 [History Last Taken Unknown] canagliflozin 300 mg tablet 300 mg PO QAM 12/04/20 [History Last Taken Unknown] duloxetine 60 mg capsule,delayed release 60 mg PO DAILY 12/04/20 [History Last Taken Unknown] lubiprostone 24 mcg capsule 24 mcg PO BID 12/04/20 [History Last Taken Unknown] pramipexole 0.75 mg tablet 0.75 mg PO BID tab 12/04/20 [History Last Taken Unknown] spironolactone 50 mg tablet 50 mg PO DAILY #90 tab 12/04/20 [Rx Last Taken Unknown] tramadol 50 mg tablet 50 mg PO DAILY PRN tab 12/04/20 [History Last Taken Unknown] zinc gluconate 30 mg tablet 30 mg PO DAILY 12/04/20 [History Last Taken Unknown] furosemide 40 mg tablet 40 mg PO BID #180 tab 01/18/21 [Rx Last Taken Unknown] insulin glargine 100 unit/mL (3 mL) subcutaneous pen 36 unit SUBCUT QAM ml 01/18/21 [History Last Taken Unknown] azithromycin 250 mg tablet See Rx Instructions PO .COMPLEX #6 tab 01/22/21 [Rx Last Taken Unknown] albuterol sulfate [Ventolin HFA] 2 puff INHALATION Q3H PRN #1 inhaler 01/23/21 [Rx Last Taken Unknown] inhalational spacing device [POCKET CHAMBER] #1 ea 01/23/21 [Rx Last Taken Unknown] prednisone 40 mg PO DAILY #8 tablet 01/23/21 [Rx Last Taken Unknown] Allergy/AdvReac Type Severity Reaction Status Date / Time nitrofurantoin Allergy Hives Verified 01/23/21 19:30 macrocrystalline [From Macrodantin] rosuvastatin [From Crestor] AdvReac Severe Muscle Verified 01/23/21 19:30 weakness colesevelam [From WelChol] AdvReac Intermediate nausea Verified 01/23/21 19:30 nitrofurantoin AdvReac Intermediate Hives Verified 01/23/21 19:30 [From Furadantin] metformin AdvReac Unknown Gi side Verified 01/23/21 19:30 effects MAPLE TREES Allergy Hives Uncoded 01/23/21 19:30 DAIRY AdvReac Upset Uncoded 01/23/21 19:30 Stomach Family History Father CAD (coronary artery disease) Diabetes Myocardial infarction Alzheimers disease Hypertension Parkinson's disease Cancer melanoma History of blood clots Mother Diabetes AAA (abdominal aortic aneurysm) Bleeding disorder Colon cancer Thyroid disorder Brother Multiple sclerosis Skin cancer Surgical History History of cholecystectomy History of lumbar fusion (~2012) History of Belkys fundoplication History of right hip replacement (~07/08/15) History of tonsillectomy and adenoidectomy Hx of hernia repair Hx of lumbar discectomy Social History Smoking Status: Never smoker alcohol intake: never substance use type: does not use diet: diabetic and gluten free caffeine: No what type of physical activity do you participate in: none seatbelt use: always do you feel safe at home: Yes ROS ROS ED Constitutional Constitutional ED: Denies chills or weight loss Eyes Eyes: Denies change in vision or diplopia ENT ENT ED: Denies ear pain, rhinorrhea or sore throat Cardiovascular Cardiovascular: Denies chest pain, orthopnea, palpitations or racing heartbeat Respiratory/Chest Respiratory/Chest: Reports cough, dyspnea, dyspnea on exertion and sputum; Denies orthopnea Gastrointestinal Gastrointestinal: Denies abdominal pain, diarrhea, nausea or vomiting Genitourinary Genitourinary ED: Denies dysuria, hematuria or urinary frequency Musculoskeletal Musculoskeletal: Denies arthralgias or myalgias Integumentary Denies abscess or rash Neurologic Neurologic: Denies headache(s) or weakness Psychiatric Psychiatric: Denies anxiety, depression, suicidal ideation or suicidal thoughts Endocrine Endocrinology: Denies polydipsia, polyphagia or polyuria Allergic/Immunologic Allergic/Immunologic ED: Denies mouth swelling, tongue swelling or urticaria EXAM Physical Exam Const Vital Signs: 01/23/21 19:30 01/23/21 19:44 01/23/21 19:49 Temperature 98.1 F Temperature Source Temporal Pulse Rate 99 Respiratory Rate 20 H 24 H Respiratory Effort Short of Breath Labored Respiratory Depth Normal Respiratory Pattern Normal Blood Pressure 139/90 H Blood Pressure Mean 106 Pulse Ox 94 95 Oxygen Delivery Method Room Air Room Air Room Air 01/23/21 21:04 01/23/21 21:10 Temperature Temperature Source Pulse Rate 80 80 Respiratory Rate 19 H 12 Respiratory Effort Respiratory Depth Respiratory Pattern Normal Blood Pressure 112/59 L Blood Pressure Mean 76 Pulse Ox 95 Oxygen Delivery Method Room Air Positive well nourished and well developed General Appearance ED: well developed HEENT Reports normocephalic, head/scalp atraumatic and moist mucous membranes Eyes PERRL and EOMs intact bilaterally Neck no lymphadenopathy, supple and no JVD Resp normal respiratory effort Resp Narrative: Patient has an expiratory wheeze that clears with coughing. Slight rhonchi that also improves with coughing Cardio regular rate, regular rhythm and no murmurs GI normal to inspection, nondistended, normoactive bowel sounds and non-tender Palpation: soft Back/Spine no CVA tenderness and normal ROM Extremity normal to inspection General Extremety ED: Negative for edema General Extremity: Negative for edema Neuro oriented x3 and CN's II-XII intact bilaterally Sensorium / Orientation: alert Motor Exam: strength 5/5 throughout Psych mental status grossly normal Mood & Affect: Negative for depressed or tearful Skin no rashes or lesions noted and no wounds MDM MDM MDM Narrative Medical decision making narrative: My interpretation of the chest x-ray is no acute process large hiatal hernia which the patient knows about. Patient's white count is 9.3 her BMP is normal except for a glucose of 308. Patient received a DuoNeb and prednisone. The patient is not requiring any supplemental oxygen and her work of breathing is minimal. We will place her on 40 mg of prednisone a day as well as a new albuterol MDI that she will use scheduled for the next several days. She understands that her blood sugars will be higher than normal. Lab Data Attestation: I reviewed the patient's lab results. Labs: Laboratory Results - last 24 hr 01/23/21 01/23/21 19:50 19:50 WBC 9.3 RBC 4.67 Hgb 13.1 Hct 40.7 MCV 87.2 MCH 28.1 MCHC 32.2 RDW Std Deviation 47.5 H RDW Coeff of Basilio 15.1 H Plt Count 295 MPV 10.4 Immature Gran % (Auto) 0.300 Neut % (Auto) 75.7 H Lymph % (Auto) 12.6 L [place] % (Auto) 8.2 Eos % (Auto) 2.4 Baso % (Auto) 0.8 Absolute Neuts (auto) 7.1 Absolute Lymphs (auto) 1.17 Nucleated RBC % 0 Sodium 136 Potassium 4.2 Chloride 99 Carbon Dioxide 29.0 Anion Gap 8 BUN 20 H Creatinine 0.95 Estim Creat Clear Calc 44.63 Est GFR (MDRD) Af Amer 73 Est GFR (MDRD) Non-Af 61 BUN/Creatinine Ratio 21.1 H Glucose 308 H Calcium 8.4 L Radiography Diagnostic Testing: Clinical Impression(s) from Imaging Studies Chest X-Ray 01/23/21 19:43 IMPRESSION: Large esophageal hiatal hernia. ASSESSMENT: ABNORMAL report - There are abnormal findings in this report which may be related or unrelated to the reason for the exam. Electronically Signed: Abram Flores MD at 20:25 EDT Tel , Service support , EKG Initial EKG: Attestation: I personally reviewed and interpreted this EKG as follows: Comments: Normal sinus rhythm with a ventricular rate of 82 bpm. Discharge Plan Triage Chief Complaint: Shortness of Breath ED Provider: Lico Alfaro Dx/Rx/DC Orders Clinical Impression: Acute bronchitis with bronchospasm Instructions: ED Bronchitis with Wheezing (Adult) Prescriptions: New prednisone 20 MG tablet 40 mg PO DAILY Qty: 8 RF: 0 albuterol sulfate [Ventolin HFA] 1 INHALER inhaler 2 puff inhalation Q3H PRN (Reason: Wheezing) Qty: 1 RF: 0 (DME) POCKET CHAMBER Spacer See Rx Instructions .ROUTE .MEDSUPPLY Qty: 1 RF: 0 No Action omeprazole 20 mg capsule,delayed release(DR/EC) 20 mg PO QDAY RF: 0 rivaroxaban 20 mg tablet 20 mg PO QDAY 30 Days Qty: 30 RF: 0 simvastatin 20 mg tablet 20 mg PO QDAY 90 Days Qty: 90 RF: 0 lubiprostone [Amitiza] 24 mcg capsule 24 mcg PO BID RF: 0 duloxetine 60 mg capsule,delayed release(DR/EC) 60 mg PO DAILY RF: 0 Invokana 300 mg tablet 300 mg PO QAM RF: 0 pramipexole 0.75 mg tablet 0.75 mg PO BID RF: 0 B-complex with vitamin C Tablet 1 tab PO DAILY RF: 0 zinc gluconate 30 mg tablet 30 mg PO DAILY RF: 0 spironolactone 50 mg tablet 50 mg PO DAILY Qty: 90 RF: 2 Lantus Solostar U-100 Insulin 100 unit/mL (3 mL) insulin pen 36 unit subcut QAM RF: 0 furosemide 40 mg tablet 40 mg PO BID Qty: 180 RF: 3 azithromycin [Zithromax Z-Terrence] 250 mg tablet See Rx Instructions PO .COMPLEX Qty: 6 RF: 0 levothyroxine 125 MCG tablet 125 mcg PO DAILY RF: 0 albuterol sulfate 90 mcg/actuation HFA aerosol inhaler 2 puff inhalation Q4H PRN (Reason: Sob &/Or Wheezing) RF: 0 tramadol 50 mg tablet 50 mg PO DAILY PRN (Reason: Pain) RF: 0 cholecalciferol (vitamin D3) 1,000 UNIT tablet 5,000 unit PO DAILY RF: 0 Primary Care Provider: Ramakrishna Rossi Referrals: Ramakrishna Rossi MD [Primary Care Provider] - 3-5 Days if not improving Disposition Disposition: Home, Self Care
[2021-01-23] MEDS: predniSONE 20 MG Tablet 60 MG PO (21:02)
[2021-01-23 21:04] VITALS: BP 112/59; PULSE 80; RESP 19; O2SAT 95
[2021-01-23 21:10] VITALS: PULSE 80; RESP 12
[2021-01-23] MEDS: Ipratropium/Albuterol Sulfate 3 ML AMPUL.NEB INHALATION (21:10)
[2021-01-23 21:29] VITALS: BP 122/67; PULSE 77; RESP 16; O2SAT 98
== END 2021-01-23 21:30 | disposition home or self-care (01) ==
PROVIDERS: Emergency Provider Emergency Medicine; PCP Family Medicine
DX: J20.9 Acute bronchitis, unspecified (principal); J44.0 Chronic obstructive pulmonary disease with (acute) lower respiratory infection; E03.9 Hypothyroidism, unspecified; E11.9 Type 2 diabetes mellitus without complications; E66.9 Obesity, unspecified; E78.5 Hyperlipidemia, unspecified; F32.A Depression, unspecified; K44.9 Diaphragmatic hernia without obstruction or gangrene; G20 Parkinson's disease; G40.909 Epilepsy, unspecified, not intractable, without status epilepticus; G47.33 Obstructive sleep apnea (adult) (pediatric); I10 Essential (primary) hypertension; K21.9 Gastro-esophageal reflux disease without esophagitis; K58.9 Irritable bowel syndrome, unspecified; M19.90 Unspecified osteoarthritis, unspecified site; Z79.4 Long term (current) use of insulin; Z79.01 Long term (current) use of anticoagulants; Z86.711 Personal history of pulmonary embolism; Z86.718 Personal history of other venous thrombosis and embolism; Z79.52 Long term (current) use of systemic steroids; Z68.30 Body mass index [BMI] 30.0-30.9, adult
CPT/HCPCS: 71045; 80048; 85025; 93005; 94640; 94760; 99284; A4216

== ENCOUNTER 2021-03-13 11:17 | Emergency (ER) | payer MEDICARE, SELFPAY ==
[2021-03-13 11:18] VITALS: BP 126/80; PULSE 97; RESP 18; TEMP 36.7; O2SAT 96; BMI 32.9
--- NOTE | 2021-03-13 12:07 | CT_ITS ---
STUDY: CT BRAIN WITHOUT CONTRAST REASON FOR EXAM: Female, 76 years old. Injury RADIATION DOSAGE (If Supplied By Facility): CTDIvol = ( 44.99 ) mGy, DLP = ( 796.11 ) mGycm TECHNIQUE: Transaxial CT imaging of the brain was performed without administration of intravenous contrast material. Individualized dose optimization techniques were used for this CT. COMPARISON: Prior examinations are not available for comparison at this time. FINDINGS: Normal soft tissue structures. Normal calvarium. Normal size ventricles and extra-axial spaces for the patient''s age. Normal white matter tracts of the cerebral hemispheres. Normal basal ganglia and thalami. Normal brainstem. Normal cerebellum. There is no intracranial hemorrhage. There are no findings of an acute ischemic infarction. Atherosclerotic calcifications of the cavernous internal carotid arteries. Normal visualized paranasal sinuses. CT/Brain/Head without Contrast IMPRESSION: No acute intracranial process. Electronically Signed: Eran English, at 12:40 EST Tel , Service support ,
--- NOTE | 2021-03-13 12:07 | RAD_ITS ---
STUDY: X-RAY - PELVIS AND RIGHT HIP REASON FOR EXAM: Female, 76 years old. Injury TECHNIQUE: 3 views of the pelvis and hip. COMPARISON: None. FINDINGS: Status post fusion of the lower lumbar spine with pedicle screws. Pelvic soft tissue mass presumably representing distended bladder. No demonstrated acute fracture. Status post right total hip arthroplasty. RAD/HIP, UNI W/ Pelvis 2-3 Views IMPRESSION: Status post right hip arthroplasty. No demonstrated acute fracture. Electronically Signed: Eran English, at 12:43 EST Tel , Service support ,
--- NOTE | 2021-03-13 12:07 | ED.VIS.FALL ---
HPI HPI - Fall History of Present Illness Chief Complaint: Fall Informant: patient Narrative Narrative: 76-year-old female presenting to the emergency department following a fall yesterday. Patient was going up the steps into her house from the garage when she fell backwards. She injured the base of her thumb on the dorsal surface and injured her right ring finger. She also notes pain in the right hip which is a hip replacement x5 years by Dr. Navarro. She also struck the back of her head. No loss of consciousness and reports no nausea. She states she does have a persistent headache. She is on Xarelto. [facility] Medical History Asthma COPD (chronic obstructive pulmonary disease) Depression Diabetes mellitus type II, controlled Essential hypertension GERD (gastroesophageal reflux disease) Hiatal hernia History of basal cell carcinoma (BCC) History of DVT (deep vein thrombosis) History of pulmonary embolism Hyperlipidemia Hypothyroidism IBS (irritable bowel syndrome) Kidney disease Lumbar back pain Lung disease Obesity (BMI 30.0-34.9) JHONY (obstructive sleep apnea) Osteoarthritis Parkinsons disease Premature atrial contractions Seizure disorder Sleep apnea Symptomatic bradycardia Home Medications levothyroxine 125 mcg PO DAILY 06/18/13 [History Last Taken 07/20/13] omeprazole 20 mg capsule,delayed release 20 mg PO QDAY 06/19/17 [History Last Taken Unknown] cholecalciferol (vitamin D3) 5,000 unit PO DAILY 07/28/17 [History Last Taken Unknown] rivaroxaban 20 mg tablet 20 mg PO QDAY 30 Days #30 tab 09/01/17 [History Last Taken Unknown] simvastatin 20 mg tablet 20 mg PO QDAY 90 Days #90 tab 09/01/17 [History Last Taken Unknown] B-complex with vitamin C 1 tab PO DAILY 12/04/20 [History Last Taken Unknown] albuterol sulfate 90 mcg/actuation aerosol inhaler 2 puff INHALATION Q4H PRN g 12/04/20 [History Last Taken Unknown] canagliflozin 300 mg tablet 300 mg PO QAM 12/04/20 [History Last Taken Unknown] duloxetine 60 mg capsule,delayed release 60 mg PO DAILY 12/04/20 [History Last Taken Unknown] lubiprostone 24 mcg capsule 24 mcg PO BID 12/04/20 [History Last Taken Unknown] pramipexole 0.75 mg tablet 0.75 mg PO BID tab 12/04/20 [History Last Taken Unknown] spironolactone 50 mg tablet 50 mg PO DAILY #90 tab 12/04/20 [Rx Last Taken Unknown] tramadol 50 mg tablet 50 mg PO DAILY PRN tab 12/04/20 [History Last Taken Unknown] zinc gluconate 30 mg tablet 30 mg PO DAILY 12/04/20 [History Last Taken Unknown] furosemide 40 mg tablet 40 mg PO BID #180 tab 01/18/21 [Rx Last Taken Unknown] insulin glargine 100 unit/mL (3 mL) subcutaneous pen 36 unit SUBCUT QAM ml 01/18/21 [History Last Taken Unknown] azithromycin 250 mg tablet See Rx Instructions PO .COMPLEX #6 tab 01/22/21 [Rx Last Taken Unknown] albuterol sulfate [Ventolin HFA] 2 puff INHALATION Q3H PRN #1 inhaler 01/23/21 [Rx Last Taken Unknown] inhalational spacing device [POCKET CHAMBER] #1 ea 01/23/21 [Rx Last Taken Unknown] prednisone 40 mg PO DAILY #8 tablet 01/23/21 [Rx Last Taken Unknown] Allergy/AdvReac Type Severity Reaction Status Date / Time nitrofurantoin Allergy Hives Verified 03/13/21 11:20 macrocrystalline [From Macrodantin] rosuvastatin [From Crestor] AdvReac Severe Muscle Verified 03/13/21 11:20 weakness colesevelam [From WelChol] AdvReac Intermediate nausea Verified 03/13/21 11:20 nitrofurantoin AdvReac Intermediate Hives Verified 03/13/21 11:20 [From Furadantin] metformin AdvReac Unknown Gi side Verified 03/13/21 11:20 effects MAPLE TREES Allergy Hives Uncoded 03/13/21 11:20 DAIRY AdvReac Upset Uncoded 03/13/21 11:20 Stomach Family History Father CAD (coronary artery disease) Diabetes Myocardial infarction Alzheimers disease Hypertension Parkinson's disease Cancer melanoma History of blood clots Mother Diabetes AAA (abdominal aortic aneurysm) Bleeding disorder Colon cancer Thyroid disorder Brother Multiple sclerosis Skin cancer Surgical History History of cholecystectomy History of lumbar fusion (~2012) History of Belkys fundoplication History of right hip replacement (~07/08/15) History of tonsillectomy and adenoidectomy Hx of hernia repair Hx of lumbar discectomy Social History Smoking Status: Never smoker alcohol intake: never substance use type: does not use diet: diabetic and gluten free caffeine: No what type of physical activity do you participate in: none seatbelt use: always do you feel safe at home: Yes ROS ROS ED Constitutional Constitutional ED: Denies chills, fever(s) or weight loss Eyes Eyes: Denies change in vision or diplopia ENT ENT ED: Denies ear pain, rhinorrhea or sore throat Cardiovascular Cardiovascular: Denies chest pain, orthopnea, palpitations or racing heartbeat Respiratory/Chest Respiratory/Chest: Denies cough, dyspnea or orthopnea Gastrointestinal Gastrointestinal: Denies abdominal pain, diarrhea, nausea or vomiting Genitourinary Genitourinary ED: Denies dysuria, hematuria or urinary frequency Musculoskeletal Musculoskeletal: Reports other Details: See history of present illness ; Denies arthralgias or myalgias Integumentary Denies abscess or rash Neurologic Neurologic: Reports headache(s); Denies weakness Psychiatric Psychiatric: Denies anxiety, depression, suicidal ideation or suicidal thoughts Endocrine Endocrinology: Denies polydipsia, polyphagia or polyuria Allergic/Immunologic Allergic/Immunologic ED: Denies mouth swelling, tongue swelling or urticaria EXAM Physical Exam Const Vital Signs: 03/13/21 11:18 03/13/21 12:01 Temperature 98.1 F Temperature Source Temporal Pulse Rate 97 Respiratory Rate 18 Respiratory Effort Normal Non-Labored Respiratory Depth Normal Respiratory Pattern Normal Blood Pressure 126/80 H Blood Pressure Mean 95 Pulse Ox 96 Oxygen Delivery Method Room Air Room Air Positive well nourished and well developed General Appearance ED: well developed HEENT Reports normocephalic, head/scalp atraumatic, TM's clear and moist mucous membranes atraumatic Tympanic Membrane ED: Yes TM's clear Eyes PERRL and EOMs intact bilaterally Neck full ROM, no lymphadenopathy, supple and no JVD Resp normal respiratory effort and clear to auscultation bilaterally Cardio regular rate, regular rhythm and no murmurs GI normal to inspection, nondistended, normoactive bowel sounds and non-tender Palpation: soft Back/Spine no CVA tenderness and normal ROM Extremity Extremity Narrative: Small area of contusion and abrasion to the dorsal surface along the first metacarpal. Full range of motion of the right ring finger though painful. She has tenderness over the greater trochanter on the right General Extremety ED: Negative for edema General Extremity: Negative for edema Neuro oriented x3 and CN's II-XII intact bilaterally Sensorium / Orientation: alert Motor Exam: strength 5/5 throughout Psych mental status grossly normal Mood & Affect: Negative for depressed or tearful Skin no rashes or lesions noted and no wounds MDM MDM MDM Narrative Medical decision making narrative: My interpretation of plain films of the right hand is no acute fracture My interpretation of the plain films of the right hip and pelvis is no acute fracture. CT the brain was obtained does not demonstrate intracranial hemorrhage. At this point the patient will be discharged home with supportive care return if worsening or concerns Radiography Diagnostic Testing: Clinical Impression(s) from Imaging Studies Brain CT 03/13/21 12:07 IMPRESSION: No acute intracranial process. Electronically Signed: Eran Tameka, at 12:40 EST Tel , Service support , Hip/Pelvis X-Ray 03/13/21 12:07 IMPRESSION: Status post right hip arthroplasty. No demonstrated acute fracture. Electronically Signed: Eran Tameka, at 12:43 EST Tel , Service support , Hand X-Ray 03/13/21 12:25 IMPRESSION: Degenerative arthrosis. No demonstrated acute osseous injury. Electronically Signed: Eran Tameka, at 12:41 EST Tel , Service support , Discharge Plan Triage Chief Complaint: Fall ED Provider: Lico Alfaro Dx/Rx/DC Orders Clinical Impression: Fall, Head injury, Anticoagulated, Contusion of hip, right, Contusion of hand, right Instructions: ED Head Injury (Adult), ED Hip Contusion Prescriptions: No Action omeprazole 20 mg capsule,delayed release(DR/EC) 20 mg PO QDAY RF: 0 rivaroxaban 20 mg tablet 20 mg PO QDAY 30 Days Qty: 30 RF: 0 simvastatin 20 mg tablet 20 mg PO QDAY 90 Days Qty: 90 RF: 0 lubiprostone [Amitiza] 24 mcg capsule 24 mcg PO BID RF: 0 duloxetine 60 mg capsule,delayed release(DR/EC) 60 mg PO DAILY RF: 0 Invokana 300 mg tablet 300 mg PO QAM RF: 0 pramipexole 0.75 mg tablet 0.75 mg PO BID RF: 0 B-complex with vitamin C Tablet 1 tab PO DAILY RF: 0 zinc gluconate 30 mg tablet 30 mg PO DAILY RF: 0 spironolactone 50 mg tablet 50 mg PO DAILY Qty: 90 RF: 2 Lantus Solostar U-100 Insulin 100 unit/mL (3 mL) insulin pen 36 unit subcut QAM RF: 0 furosemide 40 mg tablet 40 mg PO BID Qty: 180 RF: 3 azithromycin [Zithromax Z-Terrence] 250 mg tablet See Rx Instructions PO .COMPLEX Qty: 6 RF: 0 levothyroxine 125 MCG tablet 125 mcg PO DAILY RF: 0 albuterol sulfate 90 mcg/actuation HFA aerosol inhaler 2 puff inhalation Q4H PRN (Reason: Sob &/Or Wheezing) RF: 0 tramadol 50 mg tablet 50 mg PO DAILY PRN (Reason: Pain) RF: 0 cholecalciferol (vitamin D3) 1,000 UNIT tablet 5,000 unit PO DAILY RF: 0 prednisone 20 MG tablet 40 mg PO DAILY Qty: 8 RF: 0 albuterol sulfate [Ventolin HFA] 1 INHALER inhaler 2 puff inhalation Q3H PRN (Reason: Wheezing) Qty: 1 RF: 0 (DME) POCKET CHAMBER Spacer See Rx Instructions .ROUTE .MEDSUPPLY Qty: 1 RF: 0 Primary Care Provider: Ramakrishna Rossi Referrals: Ramakrishna Rossi MD [Primary Care Provider] - 10-14 Days if not better Disposition Disposition: Home, Self Care
--- NOTE | 2021-03-13 12:25 | RAD_ITS ---
STUDY: X-RAY - RIGHT HAND REASON FOR EXAM: Female, 76 years old. Injury TECHNIQUE: 3 view(s) of the hand. COMPARISON: None. FINDINGS: Normal radiocarpal articulation. Normal distal radioulnar joint. Normal visualized carpal bones. Normal carpal articulations There is degenerative arthrosis of the carpometacarpal articulation of the thumb with lateral subluxation of the first metacarpus. Normal second through fifth carpometacarpal joints. Normal metacarpi. Normal metacarpophalangeal joint of the thumb. Normal interphalangeal joint of the thumb. Normal proximal and distal phalanges of the thumb. Normal metacarpophalangeal joints of the second through fifth fingers. Normal proximal and distal interphalangeal joints of the second through fifth fingers. Normal phalanges of the second through fifth fingers. The soft tissue structures are unremarkable. RAD/Hand Min 3 Views IMPRESSION: Degenerative arthrosis. No demonstrated acute osseous injury. Electronically Signed: Eran English, at 12:41 EST Tel , Service support ,
== END 2021-03-13 13:13 | disposition home or self-care (01) ==
PROVIDERS: Emergency Provider Emergency Medicine; PCP Family Medicine
DX: S09.90XA Unspecified injury of head, initial encounter (principal); S60.221A Contusion of right hand, initial encounter; S70.01XA Contusion of right hip, initial encounter; K58.9 Irritable bowel syndrome, unspecified; K21.9 Gastro-esophageal reflux disease without esophagitis; E11.9 Type 2 diabetes mellitus without complications; E03.9 Hypothyroidism, unspecified; E78.5 Hyperlipidemia, unspecified; G20 Parkinson's disease; G40.909 Epilepsy, unspecified, not intractable, without status epilepticus; G47.33 Obstructive sleep apnea (adult) (pediatric); I10 Essential (primary) hypertension; J44.9 Chronic obstructive pulmonary disease, unspecified; F32.A Depression, unspecified; E66.9 Obesity, unspecified; Z68.30 Body mass index [BMI] 30.0-30.9, adult; Z79.01 Long term (current) use of anticoagulants; Z79.4 Long term (current) use of insulin; Z79.52 Long term (current) use of systemic steroids; Z86.711 Personal history of pulmonary embolism; Z86.718 Personal history of other venous thrombosis and embolism; Z96.641 Presence of right artificial hip joint
CPT/HCPCS: 70450; 73130; 73502; 99282

== ENCOUNTER → 2021-04-05 11:09 | Outpatient (CLI) | payer MEDICARE, SELFPAY ==
--- NOTE | 2021-04-05 11:17 | VDLE_ITS ---
Reason For Study: Swelling RIGHT LEFT CFV is compressible, spontaneous, phasic, CFV is compressible, spontaneous, phasic, competent and demonstrates normal competent, and demonstrates normal augmentation. augmentation. FV is compressible, spontaneous, phasic, FV is compressible, spontaneous, phasic, competent and demonstrates normal competent and demonstrates normal augmentation. augmentation. POP V is compressible, spontaneous, phasic, POP V is compressible, spontaneous, phasic, competent and demonstrates normal competent and demonstrates normal augmentation. augmentation. T/P Trunk is compressible. T/P Trunk is compressible. PTV is compressible. PTV is compressible. RT PerV is compressible. LT PerV is compressible. SFJ is competent and measures 0.84 x 0.85 cm. SFJ is competent and measures 0.97 x 1.06 cm. GSV proximal thigh measures 0.49 x 0.50 cm. GSV proximal thigh measures 0.57 x 0.62 cm. GSV at knee measures 0.46 x 0.51 cm. GSV at knee measures 0.29 x 0.27 cm. GSV is competent throughout. GSV is competent throughout. ASV proximal calf is INCOMPETENT for greater SSV at junction is competent and measures than 0.5 seconds and measures 0.34 x 0.34 cm. 0.11 x 0.12 cm. SSV at junction is competent and measures 0.19 x 0.19 cm. Procedure This is a venous duplex using B-mode, color flow and spectral Doppler. Exam performed in department. A preliminary report was called and/or faxed to [facility]. VL/Venous Duplex US - Raymon Extrem Interpretation Summary No DVT or SVT visualized. Bilateral saphenous veins dilated but no reflux noted . Reflux in the calf ASV and into branches. Ordering Physician: Hung Cintron Referring Physician: Ramakrishna Rossi Performed By: Willinger, Mely, RVT
== END ==
PROVIDERS: PCP Family Medicine; Visit Provider Surgery Vascular Surgery
DX: M79.89 Other specified soft tissue disorders (principal); M79.606 Pain in leg, unspecified; I83.893 Varicose veins of bilateral lower extremities with other complications; I70.213 Atherosclerosis of native arteries of extremities with intermittent claudication, bilateral legs; R60.9 Edema, unspecified; K31.84 Gastroparesis; K44.9 Diaphragmatic hernia without obstruction or gangrene; E11.9 Type 2 diabetes mellitus without complications; E78.00 Pure hypercholesterolemia, unspecified; I10 Essential (primary) hypertension; G20 Parkinson's disease
CPT/HCPCS: 93970

== ENCOUNTER 2021-08-21 19:53 | Emergency (ER) | payer MEDICARE, SELFPAY ==
[2021-08-21 19:54] VITALS: BP 121/79; PULSE 88; RESP 16; TEMP 35.9; O2SAT 99; BMI 29.1
--- NOTE | 2021-08-21 20:14 | RAD_ITS ---
STUDY: RIGHT RIB X-RAY SERIES WITH A PA CHEST 2035 AND 08/21/2021 REASON FOR EXAM: 76-year-old female with falling injury and pain. TECHNIQUE : 4 view(s) of the ribs and one view of the chest were obtained. COMPARISON: None. FINDINGS - RIBS: There is moderate demineralization. There is non-displaced fracture of the right posterior seventh rib. There is no identification FINDINGS - CHEST: There is a moderate-sized hiatal hernia. No cardiomegaly. There is no pulmonary infiltrates, atelectasis, effusion. No pneumothorax, hemothorax or pulmonary contusion. RAD/Ribs Uni Min 3V w/PA Chest IMPRESSION: 1. Presence of a non-displaced fracture of the right posterior seventh rib. 2. No identification of the rib fractures. 3. Moderate demineralization. 4. No pneumothorax, hemothorax or pulmonary contusion. 5. No active cardiopulmonary disease. 6. Moderate sized hiatal hernia. Electronically Signed: Izaiah Duenas MD at 21:40 EDT ,
--- NOTE | 2021-08-21 20:14 | RAD_ITS ---
EXAM: XR PELVIS, 1 OR 2 VIEWS CLINICAL INDICATION: right pelvic brim injury/fall TECHNIQUE: Frontal view of the pelvis. This report was created using [employer] report generation technology. COMPARISON: None. FINDINGS: BONES/JOINTS: Right hip arthroplasty. Postoperative changes lower lumbar spine with pedicle screws and rods. No displaced fracture. No destructive or sclerotic lesions. Note that overlapping bowel shadows may however obscure fine detail. Sacroiliac joints are unremarkable. No widening of the pubic symphysis. SOFT TISSUES: Unremarkable. No soft tissue swelling or gas. RAD/Pelvis 1 or 2 Views IMPRESSION: Right hip arthroplasty. No dislocation or fracture. No acute abnormality. Electronically Signed: Yusuf Joy MD at 21:29 EDT ,
--- NOTE | 2021-08-21 20:14 | RAD_ITS ---
EXAM: XR RIGHT SHOULDER COMPLETE, 2 OR MORE VIEWS CLINICAL INDICATION: fall/injury TECHNIQUE: Two or more views of the right shoulder. This report was created using [employer] report generation technology. COMPARISON: None. FINDINGS: BONES/JOINTS: Unremarkable. No acute fracture. No subluxation. Normal alignment. Preservation of the joint space. No sclerotic or destructive changes observed. SOFT TISSUES: Unremarkable. No soft tissue swelling or gas. No radiopaque foreign body. RAD/Shoulder min 2 Views IMPRESSION: Negative right shoulder x-rays. Electronically Signed: Yusuf Joy MD at 21:30 EDT ,
--- NOTE | 2021-08-21 20:14 | CT_ITS ---
EXAM: CT HEAD WITHOUT INTRAVENOUS CONTRAST CLINICAL INDICATION: fall/injury TECHNIQUE: Multiple axial images were obtained of the head without intravenous contrast. This CT exam was performed using one or more of the following dose reduction techniques: automated exposure control, adjustment of the mA and/or kV according to patient size, and/or use of iterative reconstruction technique. This report was created using [employer] report generation technology. RADIATION DOSE: CTDIvol = 44.99 mGy, DLP = 829.85 mGy-cm. COMPARISON: 03/13/2021. FINDINGS: BRAIN AND EXTRA-AXIAL SPACES: Mild generalized atrophy. Mild low density bilaterally in the deep white matter. No intra- or extra-axial hemorrhage. No evidence of acute infarct. No intracranial mass or mass effect. There is preservation of the tapia/white matter interface. Posterior fossa structures are unremarkable. No hydrocephalus. Basal cisterns are patent. BONES/JOINTS: Unremarkable. No discrete lytic or blastic abnormalities. SINUSES: Unremarkable as visualized. Clear. MASTOID AIR CELLS: Unremarkable. Clear. ORBITS: Visualized globes, extraocular muscles, optic nerves and retrobulbar fat appear unremarkable. CT/Brain/Head without Contrast IMPRESSION: Mild generalized atrophy. Mild low density bilaterally in the deep white matter. This likely represents small vessel ischemic changes in the deep white matter. Electronically Signed: Yusuf Joy MD at 21:10 EDT ,
--- NOTE | 2021-08-21 20:20 | ED.VIS.FALL ---
HPI HPI - Fall History of Present Illness Chief Complaint: Fall Informant: patient Occured/Mechanism Occurred: Today (Around 4 or 5 hours prior to arrival) Mechanism/Context: Yes trip Narrative: In her home on linoleum floor, falling to floor Pain/Injury Pain Location: head, upper extremity (Rate, and tired) and lower extremity (Right knee, hip) Quality of Pain: Aching (Sore) Current Severity: Moderate Maximum Severity: Moderate Worsened by: Moving Relieved by: Remaining still Associated Symptoms Associated Symptoms: Negative for Parasthesias, Weakness, Loss of function, Inability to ambulate and Loss of consciousness Narrative Narrative: Patient tripped and fell, she hit her head and was dazed but did not lose consciousness. She did have a headache but it is better now. She had some double vision initially and felt dizzy, but that resolved. She fell to her right side. She injured her entire right upper arm but she can move it okay and states nothing is broken and states she also hit her right hip and her knee. She states she has been able to walk without difficulty. She is on Xarelto for history of chronic atrial fibrillation. [facility] Medical History Asthma COPD (chronic obstructive pulmonary disease) Depression Diabetes mellitus type II, controlled Essential hypertension GERD (gastroesophageal reflux disease) Hiatal hernia History of basal cell carcinoma (BCC) History of DVT (deep vein thrombosis) History of pulmonary embolism Hyperlipidemia Hypothyroidism IBS (irritable bowel syndrome) Kidney disease Lumbar back pain Lung disease Obesity (BMI 30.0-34.9) JHONY (obstructive sleep apnea) Osteoarthritis Parkinsons disease Premature atrial contractions Seizure disorder Sleep apnea Symptomatic bradycardia Home Medications levothyroxine 300 mcg PO DAILY 06/18/13 [History Last Taken 07/20/13] omeprazole 20 mg capsule,delayed release 20 mg PO QDAY 06/19/17 [History Last Taken Unknown] cholecalciferol (vitamin D3) 5,000 unit PO DAILY 07/28/17 [History Last Taken Unknown] rivaroxaban 20 mg tablet 20 mg PO QDAY 30 Days #30 tab 09/01/17 [History Last Taken Unknown] simvastatin 20 mg tablet 20 mg PO QDAY 90 Days #90 tab 09/01/17 [History Last Taken Unknown] albuterol sulfate 90 mcg/actuation aerosol inhaler 2 puff INHALATION Q4H PRN g 08/20/21 [History Last Taken Unknown] canagliflozin 300 mg tablet 300 mg PO QAM 12/04/20 [History Last Taken Unknown] duloxetine 60 mg capsule,delayed release 60 mg PO DAILY 12/04/20 [History Last Taken Unknown] spironolactone 50 mg tablet 50 mg PO DAILY #90 tab 12/04/20 [Rx Last Taken Unknown] tramadol 50 mg tablet 50 mg PO DAILY PRN tab 12/04/20 [History Last Taken Unknown] zinc gluconate 30 mg tablet 30 mg PO DAILY 12/04/20 [History Last Taken Unknown] furosemide 40 mg tablet 40 mg PO BID #180 tab 01/18/21 [Rx Last Taken Unknown] inhalational spacing device [POCKET CHAMBER] #1 ea 01/23/21 [Rx Last Taken Unknown] acetaminophen 325 mg tablet 325 mg PO ONCE PRN 06/02/21 [History Last Taken Unknown] diphenhydramine HCl 25 mg capsule 25 mg PO QHS PRN 06/02/21 [History Last Taken Unknown] insulin glargine 100 unit/mL (3 mL) subcutaneous pen 40 unit SUBCUT QAM ml 06/02/21 [History Last Taken Unknown] pramipexole 1 mg tablet 1 mg PO BID tab 06/02/21 [History Last Taken Unknown] topiramate 25 mg tablet 50 mg PO BID tab 06/02/21 [History Last Taken Unknown] tramadol 50 mg PO Q6H PRN 4 Days #16 tab 08/21/21 [Rx Last Taken Unknown] Allergy/AdvReac Type Severity Reaction Status Date / Time nitrofurantoin Allergy Hives Verified 08/21/21 19:54 macrocrystalline [From Macrodantin] rosuvastatin [From Crestor] AdvReac Severe Muscle Verified 08/21/21 19:54 weakness colesevelam [From WelChol] AdvReac Intermediate nausea Verified 08/21/21 19:54 nitrofurantoin AdvReac Intermediate Hives Verified 08/21/21 19:54 [From Furadantin] metformin AdvReac Unknown Gi side Verified 08/21/21 19:54 effects MAPLE TREES Allergy Hives Uncoded 08/21/21 19:54 DAIRY AdvReac Upset Uncoded 08/21/21 19:54 Stomach Family History Father CAD (coronary artery disease) Diabetes Myocardial infarction Alzheimers disease Hypertension Parkinson's disease Cancer melanoma History of blood clots Mother Diabetes AAA (abdominal aortic aneurysm) Bleeding disorder Colon cancer Thyroid disorder Brother Multiple sclerosis Skin cancer Surgical History (Reviewed 06/02/21 @ 10:43 by Judit Maria ENERGY MANAGEMENT SPECIALIST, ENERGY MANAGEMENT SPECIALIST-C) History of cholecystectomy History of lumbar fusion (~2012) History of Belkys fundoplication History of right hip replacement (~07/08/15) History of tonsillectomy and adenoidectomy Hx of hernia repair Hx of lumbar discectomy Social History Smoking Status: Never smoker alcohol intake: never substance use type: does not use diet: diabetic and gluten free caffeine: No what type of physical activity do you participate in: none seatbelt use: always do you feel safe at home: Yes ROS ROS ED Constitutional Constitutional ED: Denies chills or fever(s) Eyes Eyes: Reports as per HPI and change in vision; Denies diplopia ENT ENT ED: Denies ear pain, epistaxis, facial pain or rhinorrhea Cardiovascular Cardiovascular: Denies chest pain or palpitations Respiratory/Chest Respiratory/Chest: Denies cough or dyspnea Gastrointestinal Gastrointestinal: Denies abdominal pain, diarrhea, melena, nausea or vomiting Genitourinary Genitourinary ED: Denies dysuria or hematuria Musculoskeletal Musculoskeletal: Reports extremity pain; Denies back pain or neck pain Integumentary Denies abscess, Abrasions, laceration or rash Neurologic Neurologic: Reports headache(s); Denies confusion, paresthesias or weakness EXAM Physical Exam Const Vital Signs: 08/21/21 19:54 08/21/21 20:02 Temperature 96.7 F L Temperature Source Temporal Pulse Rate 88 Respiratory Rate 16 Respiratory Effort Normal Respiratory Depth Normal Blood Pressure 121/79 H Blood Pressure Mean 93 Pulse Ox 99 Oxygen Delivery Method Room Air Positive well nourished and well developed General Appearance ED: well developed and NAD HEENT Reports TM's clear and nasal mucous membranes and turbinates normal atraumatic Face and Sinus: Negative for facial tenderness Tympanic Membrane ED: Yes TM's clear Eyes PERRL and EOMs intact bilaterally Visual Acuity: other Other Details: no entrapment or pain with extraocular movements Neck full ROM and supple General: Negative for tenderness Chest Wall inspection of chest normal and palpation of chest normal Chest Narrative: tender right inferolateral ribcage including the sternum with no crepitance, flail, or splinting on deep inspiration Chest: symmetrical chest wall rise and tenderness; Negative for crepitus Resp normal respiratory effort and clear to auscultation bilaterally Percussion: other equal BS bilat Cardio no murmurs Rate: regular rate Rhythm: regular rhythm GI normal to inspection, nondistended, normoactive bowel sounds, soft to palpation and non-tender Back/Spine normal ROM Cervical Spine: Negative for cervical spine tenderness Thoracic Spine / Upper Back: Negative for thoracic spinal tenderness Lumbar Spine / Lower Back: Negative for lumbar spinal tenderness Extremity normal to inspection and full ROM Extremity Narrative: Mild tenderness diffusely throughout the right upper extremity including the lateral half of the clavicle and the acromioclavicular joint where there is no swelling or deformity. She can fully move the wrist, elbow, shoulder without apparent difficulty. Not injured on the left side which moves without difficulty fully. In the right lower extremity, there is a small contusion at the lateral aspect of the patella, but the entire patella is tender, the extensor mechanism is intact and her knee range of motion is full. All ligaments with short endpoints, stable without significant pain on stressing, no laxity. Her hip joint, there is no pain with internal/external rotation or thigh flexion. She does not have tenderness at the greater trochanter, mildly tender at the pelvic brim posterior to the hip joint. Pelvis stable to AP compression. General Extremety ED: Yes tenderness Neuro oriented x3, CN's II-XII intact bilaterally, moves all extremities, no focal motor deficits and no sensory deficits noted Arslan Coma Scale: document GCS findings Spontaneous Obeys Commands Oriented 15 Sensorium / Orientation: awake and alert Psych mental status grossly normal and thought process normal Skin no wounds Skin Narrative: Small contusion lateral aspect right knee/patella Lesions: no lesions Rashes: no rashes MDM MDM MDM Narrative Medical decision making narrative: Patient took Tylenol right before she came here and she is comfortable. CT of the head shows no acute traumatic abnormality. X-ray is as follows: 4 views right knee with chronic changes, interpretation nothing acute. 3 views right shoulder on my interpretation nothing acute. 5 view right rib series with PA chest negative for anything acute. (Radiology interpreted a nondisplaced angle fracture of rib #7 posteriorly) Pelvis 1 view on my interpretation negative for any acute. Patient reassured and comfortable with discharge home, will be offered prescription analgesics prior. Radiography Diagnostic Testing: Clinical Impression(s) from Imaging Studies Brain CT 08/21/21 20:14 IMPRESSION: Mild generalized atrophy. Mild low density bilaterally in the deep white matter. This likely represents small vessel ischemic changes in the deep white matter. Electronically Signed: Yusuf Joy MD at 21:10 EDT Reading Location ID and State: [id number] / [employer] Tel , Service support , Pelvis X-Ray 08/21/21 20:14 IMPRESSION: Right hip arthroplasty. No dislocation or fracture. No acute abnormality. Electronically Signed: Yusuf Joy MD at 21:29 EDT Reading Location ID and State: [id number] / [employer] Tel , Service support , Ribs w/Chest X-Ray 08/21/21 20:14 IMPRESSION: 1. Presence of a non-displaced fracture of the right posterior seventh rib. 2. No identification of the rib fractures. 3. Moderate demineralization. 4. No pneumothorax, hemothorax or pulmonary contusion. 5. No active cardiopulmonary disease. 6. Moderate sized hiatal hernia. Electronically Signed: Izaiah Duenas MD at 21:40 EDT Reading Location ID and State: [id number] / [employer] Tel , Service support , Shoulder X-Ray 08/21/21 20:14 IMPRESSION: Negative right shoulder x-rays. Electronically Signed: Yusuf Joy MD at 21:30 EDT Reading Location ID and State: [id number] / [employer] Tel , Service support , Knee X-Ray 08/21/21 20:35 IMPRESSION: Mild degenerative changes medial compartment. No acute abnormality. Electronically Signed: Yusuf Joy MD at 21:29 EDT , Discharge Plan Triage Chief Complaint: Fall ED Provider: Adelso Tabor Dx/Rx/DC Orders Clinical Impression: Closed traumatic nondisplaced fracture of one rib of right side, Contusion, multiple sites, Closed head injury without loss of consciousness, Fall from slip, trip, or stumble Instructions: Bruises (Contusions), ED Rib Fracture, ED Head Injury (Adult) Prescriptions: New tramadol 50 MG tablet 50 mg PO Q6H PRN (Reason: pain) 4 Days Qty: 16 RF: 0 No Action omeprazole 20 mg capsule,delayed release(DR/EC) 20 mg PO QDAY RF: 0 rivaroxaban 20 mg tablet 20 mg PO QDAY 30 Days Qty: 30 RF: 0 simvastatin 20 mg tablet 20 mg PO QDAY 90 Days Qty: 90 RF: 0 duloxetine 60 mg capsule,delayed release(DR/EC) 60 mg PO DAILY RF: 0 Invokana 300 mg tablet 300 mg PO QAM RF: 0 zinc gluconate 30 mg tablet 30 mg PO DAILY RF: 0 spironolactone 50 mg tablet 50 mg PO DAILY Qty: 90 RF: 2 Lantus Solostar U-100 Insulin 100 unit/mL (3 mL) insulin pen 40 unit subcut QAM RF: 0 furosemide 40 mg tablet 40 mg PO BID Qty: 180 RF: 3 pramipexole 1 mg tablet 1 mg PO BID RF: 0 topiramate 25 mg tablet 50 mg PO BID RF: 0 acetaminophen [Tylenol] 325 mg tablet 325 mg PO ONCE PRN (Reason: Pain) RF: 0 diphenhydramine HCl [Benadryl] 25 mg capsule 25 mg PO QHS PRN (Reason: Insomnia) RF: 0 levothyroxine 125 MCG tablet 300 mcg PO DAILY RF: 0 albuterol sulfate 90 mcg/actuation HFA aerosol inhaler 2 puff inhalation Q4H PRN (Reason: Sob &/Or Wheezing) RF: 0 tramadol 50 mg tablet 50 mg PO DAILY PRN (Reason: Pain) RF: 0 cholecalciferol (vitamin D3) 1,000 UNIT tablet 5,000 unit PO DAILY RF: 0 (DME) POCKET CHAMBER Spacer See Rx Instructions .ROUTE .MEDSUPPLY Qty: 1 RF: 0 Primary Care Provider: Ramakrishna Rossi Referrals: Ramakrishna Rossi MD [Primary Care Provider] - 1 Week if not improving Disposition Disposition: Home, Self Care
--- NOTE | 2021-08-21 20:35 | RAD_ITS ---
EXAM: XR RIGHT KNEE COMPLETE, 4 OR MORE VIEWS CLINICAL INDICATION: fall/injury TECHNIQUE: Four or more views of the right knee. This report was created using [employer] report generation technology. COMPARISON: None. FINDINGS: BONES/JOINTS: Mild medial tibiofemoral compartment narrowing with marginal osteophytes. No acute fracture. No subluxation. Normal alignment. No sclerotic or destructive changes observed. SOFT TISSUES: Unremarkable. No soft tissue swelling or gas. No radiopaque foreign body. RAD/Knee 4 or More Views IMPRESSION: Mild degenerative changes medial compartment. No acute abnormality. Electronically Signed: Yusuf Joy MD at 21:29 EDT ,
[2021-08-21] MEDS: traMADol 50 MG Tablet PO (22:03)
--- NOTE | 2021-08-24 16:28 | CM.ED ---
ER RNCM DC F/u call: ED Visit 08/21/2021 for Fall, Rt rib Fx. Prescribed Tramadol. Called patient listed ccell phone number on demographics, no answer. did identify correct patient identity and this race and sports book writer left contact number for return call should patient have any questions, concerns or need assistance. Destiny Green RNCM
== END 2021-08-21 22:05 | disposition home or self-care (01) ==
PROVIDERS: Emergency Provider Emergency Medicine; PCP Family Medicine; Visit Provider Emergency Medicine
DX: S22.31XA Fracture of one rib, right side, initial encounter for closed fracture (principal); J44.9 Chronic obstructive pulmonary disease, unspecified; E11.9 Type 2 diabetes mellitus without complications; W01.10XA Fall on same level from slipping, tripping and stumbling with subsequent striking against unspecified object, initial encounter; S09.90XA Unspecified injury of head, initial encounter; E78.5 Hyperlipidemia, unspecified; R51.9 Headache, unspecified; I10 Essential (primary) hypertension; J45.909 Unspecified asthma, uncomplicated; G47.33 Obstructive sleep apnea (adult) (pediatric); E03.9 Hypothyroidism, unspecified
CPT/HCPCS: 70450; 71101; 72170; 73030; 73564; 99282

== ENCOUNTER 2021-08-31 11:28 | Inpatient (IN) | payer MEDICARE, SELFPAY ==
[2021-08-31 11:30] VITALS: BP 119/82; PULSE 100; RESP 18; TEMP 36.6; O2SAT 99; BMI 29.1
--- NOTE | 2021-08-31 12:06 | EDS_ITS ---
HPI HPI - Fall History of Present Illness Chief Complaint: Fall Detail of Chief Complaint: Fall with injury to left hip/pelvis Informant: patient Narrative Narrative: Patient presents to the emergency department with complaint of left hip and pelvis pain that started after a fall this afternoon. Patient tripped going into the [employer] on the door jam and fell. Patient denies striking her head. She denies neck pain. Brought to emergency department by her daughter after people at [employer] helped patient get in the car. Patient unable to bear weight on her left leg. Patient has history of prior right total hip replacement. Patient is on rivaroxaban. Patient is adamant that she did not hit her head. [facility] Medical History Asthma COPD (chronic obstructive pulmonary disease) Depression Diabetes mellitus type II, controlled Essential hypertension GERD (gastroesophageal reflux disease) Hiatal hernia History of basal cell carcinoma (BCC) History of DVT (deep vein thrombosis) History of pulmonary embolism Hyperlipidemia Hypothyroidism IBS (irritable bowel syndrome) Kidney disease Lumbar back pain Lung disease Obesity (BMI 30.0-34.9) JHONY (obstructive sleep apnea) Osteoarthritis Parkinsons disease Premature atrial contractions Seizure disorder Sleep apnea Symptomatic bradycardia Home Medications omeprazole 20 mg capsule,delayed release 20 mg PO DAILY 06/19/17 [History Last Taken 08/31/21] cholecalciferol (vitamin D3) 5,000 unit PO DAILY 07/28/17 [History Last Taken 08/30/21] rivaroxaban 20 mg tablet 20 mg PO DAILY 30 Days #30 tab 09/01/17 [History Last Taken 08/30/21] simvastatin 20 mg tablet 20 mg PO DAILY 90 Days #90 tab 09/01/17 [History Last Taken 08/30/21] albuterol sulfate 90 mcg/actuation aerosol inhaler 2 puff INHALATION Q4H PRN g 12/04/20 [History Last Taken Unknown] canagliflozin 300 mg tablet 300 mg PO QAM 12/04/20 [History Last Taken 08/31/21] duloxetine 60 mg capsule,delayed release 60 mg PO DAILY 12/04/20 [History Last Taken 08/30/21] spironolactone 50 mg tablet 50 mg PO DAILY #90 tab 12/04/20 [Rx Last Taken 08/30/21] tramadol 50 mg tablet 50 mg PO DAILY PRN tab 12/04/20 [History Last Taken 1 Week Ago ~08/24/21] zinc gluconate 30 mg tablet 30 mg PO DAILY 12/04/20 [History Last Taken ] furosemide 40 mg tablet 40 mg PO BID #180 tab 01/18/21 [Rx Last Taken 08/31/21] inhalational spacing device [POCKET CHAMBER] #1 ea 01/23/21 [Rx Last Taken Unknown] diphenhydramine HCl 25 mg capsule 25 mg PO QHS PRN 06/02/21 [History Last Taken 08/30/21] insulin glargine 100 unit/mL (3 mL) subcutaneous pen 40 unit SUBCUT QAM ml 06/02/21 [History Last Taken 08/31/21] pramipexole 1 mg tablet 1 mg PO BID tab 06/02/21 [History Last Taken 08/31/21] topiramate 25 mg tablet 50 mg PO BID tab 06/02/21 [History Last Taken 08/31/21] acetaminophen 1,000 mg PO QHS 08/31/21 [History Last Taken 08/30/21] ascorbic acid (vitamin C) 500 mg PO DAILY 08/31/21 [History Last Taken 08/30/21] levothyroxine 100 mcg PO DAILY 08/31/21 [History Last Taken 08/31/21] lubiprostone 24 mcg PO BIDCM 08/31/21 [History Last Taken 08/31/21] Allergy/AdvReac Type Severity Reaction Status Date / Time nitrofurantoin Allergy Hives Verified 08/31/21 11:32 macrocrystalline [From Macrodantin] rosuvastatin [From Crestor] AdvReac Severe Muscle Verified 08/31/21 11:32 weakness colesevelam [From WelChol] AdvReac Intermediate nausea Verified 08/31/21 11:32 nitrofurantoin AdvReac Intermediate Hives Verified 08/31/21 11:32 [From Furadantin] metformin AdvReac Unknown Gi side Verified 08/31/21 11:32 effects MAPLE TREES Allergy Hives Uncoded 08/31/21 11:32 DAIRY AdvReac Upset Uncoded 08/31/21 11:32 Stomach Family History Father CAD (coronary artery disease) Diabetes Myocardial infarction Alzheimers disease Hypertension Parkinson's disease Cancer melanoma History of blood clots Mother Diabetes AAA (abdominal aortic aneurysm) Bleeding disorder Colon cancer Thyroid disorder Brother Multiple sclerosis Skin cancer Surgical History History of cholecystectomy History of lumbar fusion (~2012) History of Belkys fundoplication History of right hip replacement (~07/08/15) History of tonsillectomy and adenoidectomy Hx of hernia repair Hx of lumbar discectomy Social History Smoking Status: Never smoker alcohol intake: never substance use type: does not use diet: diabetic and gluten free caffeine: No what type of physical activity do you participate in: none seatbelt use: always do you feel safe at home: Yes ROS ROS ED Constitutional Constitutional ED: Reports systems reviewed and no addt'l complaints, except as documented; Denies body ache(s), change in weight or chills Eyes Eyes: Denies acute decrease in peripheral vision, change in vision, double vision or loss of vision ENT ENT ED: Reports none; Denies ear pain, lip swelling, loss taste/smell, neck pain, otalgia or sore throat Cardiovascular Cardiovascular: Reports none; Denies abdominal pain, chest pain with activity, leg edema, lightheadedness, palpitations, rapid heart rate or syncope Respiratory/Chest Respiratory/Chest: Reports none; Denies change in mental status, dry cough, dyspnea, hemoptysis, shortness of breath at rest or shortness of breath with exertion Gastrointestinal Gastrointestinal: Reports none; Denies abdominal pain, change in stool character, diarrhea, hematemesis, hematochezia, melena, rectal bleeding or vomiting Genitourinary Genitourinary ED: Reports none; Denies abdominal discomfort, anuria, dysuria, genital pain or polyuria Musculoskeletal Musculoskeletal: Reports none and other Details: Left hip/pelvis pain ; Denies arthralgias, back pain, difficulty walking, extremity pain, muscle weakness or myalgias Integumentary Reports none; Denies abscess or rash Neurologic Neurologic: Reports none; Denies abnormal gait, confusion, focal weakness, frequent falls, headache(s), loss of vision, numbness, paresthesias, radicular pain, vertigo or weakness Psychiatric Psychiatric: Reports systems reviewed and no addt'l complaints, except as documented and none; Denies behavioral changes, confusion, difficulty concentrating, hallucinations, suicidal ideation, tactile hallucinations or visual hallucinations Endocrine Endocrinology: Denies none, cold intolerance, excessive sweating, fatigue or heat intolerance Hematologic/Lymphatic Hematologic/Lymphatic: Reports none; Denies anemia, easy bleeding or easy bruising Allergic/Immunologic Allergic/Immunologic ED: Denies as per HPI, none, lip swelling, mouth swelling, throat swelling, tongue swelling or hives EXAM Physical Exam Const Vital Signs: 08/31/21 11:30 08/31/21 12:19 Temperature 97.9 F Temperature Source Temporal Pulse Rate 100 Respiratory Rate 18 Respiratory Effort Normal Non-Labored Respiratory Depth Normal Respiratory Pattern Normal Blood Pressure 119/82 H Blood Pressure Mean 94 Pulse Ox 99 Oxygen Delivery Method Room Air Room Air Positive well nourished and well developed General Appearance ED: well developed and NAD HEENT Reports TM's clear and moist mucous membranes normocephalic and atraumatic; Negative for trauma or tenderness Tympanic Membrane ED: Yes TM's clear Eyes PERRL and EOMs intact bilaterally General Eye ED: Negative for pale conjunctiva or scleral icterus Neck no lymphadenopathy, supple and no JVD General: Negative for tenderness Chest Wall inspection of chest normal and palpation of chest normal Chest: Negative for tenderness Resp normal respiratory effort and clear to auscultation bilaterally Effort and Inspection: Negative for respiratory distress or pain with movement Auscultation: Negative for rhonchi, wheezes or diminished lung sounds Cardio regular rate, regular rhythm, S1 normal heart sound, S2 normal heart sound and no murmurs Peripheral Pulses: pulses 2+ throughout GI normal to inspection, nondistended, normoactive bowel sounds, soft to palpation, non-tender, non-distended and no masses Back/Spine no CVA tenderness and no thoracic nor lumbar tenderness Extremity Extremity Narrative: Left leg-there is no shortening or external rotation noted. She has tenderness over the left inguinal region. Mild tenderness over the left hip as well. Neurovascular intact distally. General Extremety ED: Negative for edema General Extremity: Negative for edema Neuro oriented x3, CN's II-XII intact bilaterally, no sensory deficits noted and gait normal Sensorium / Orientation: awake, alert, oriented to person, oriented to place and oriented to time Motor Exam: strength 5/5 throughout and strength abnormal Psych mental status grossly normal Skin no rashes or lesions noted and no wounds MDM MDM MDM Narrative Medical decision making narrative: IV line established and patient's given morphine and Zofran IV. X-rays of the left hip and pelvis obtained showed a subcapital left hip fracture on my interpretation and radiology was in agreement. Patient had basic labs that were unremarkable. EKG obtained showed a sinus rhythm with a rate of 71 bpm with no acute ST segment changes. Case discussed with orthopedic surgeon on-call Dr. Abraham who will see the patient in consultation. I will discuss case with hospitalist evaluate patient for admission Lab Data Attestation: I reviewed the patient's lab results. Labs: Laboratory Results - last 24 hr 08/31/21 08/31/21 13:05 13:05 WBC 8.8 RBC 4.25 Hgb 12.9 Hct 40.3 MCV 94.8 MCH 30.4 MCHC 32.0 RDW Std Deviation 47.4 H RDW Coeff of Basilio 13.6 Plt Count 325 MPV 9.4 Immature Gran % (Auto) 0.800 Neut % (Auto) 78.3 H Lymph % (Auto) 12.1 L [place] % (Auto) 7.1 Eos % (Auto) 1.0 Baso % (Auto) 0.7 Absolute Neuts (auto) 6.9 Absolute Lymphs (auto) 1.06 Nucleated RBC % 0 Sodium 138 Potassium 3.6 Chloride 103 Carbon Dioxide 30.0 Anion Gap 5 BUN 17 Creatinine 0.87 Estim Creat Clear Calc 47.95 Est GFR (MDRD) Af Amer 81 Est GFR (MDRD) Non-Af 67 BUN/Creatinine Ratio 19.6 Glucose 151 H Calcium 9.1 Radiography Diagnostic Testing: Clinical Impression(s) from Imaging Studies Hip/Pelvis X-Ray 08/31/21 12:35 IMPRESSION: Subcapital left hip fracture. Electronically Signed: Armani Ramirez MD at 13:15 EDT , Chest X-Ray 08/31/21 12:48 IMPRESSION: No active pulmonary disease. Electronically Signed: Eric Butcher MD at 13:58 EDT , 3 views x-rays of left hip and pelvis obtained interpreted by myself as left subcapital hip fracture. Radiology in agreement. Chest x-ray 1 view obtained interpreted by myself no acute disease process. Radiology in agreement. EKG Initial EKG: Attestation: I personally reviewed and interpreted this EKG as follows: Comments: Sinus rhythm with a ventricular rate of 71 bpm with no acute ST segment changes Discharge Plan Triage Chief Complaint: Fall ED Provider: Andrew Owens Dx/Rx/DC Orders Clinical Impression: Closed fracture of left hip, Fall Prescriptions: No Action omeprazole 20 mg capsule,delayed release(DR/EC) 20 mg PO DAILY RF: 0 rivaroxaban 20 mg tablet 20 mg PO DAILY 30 Days Qty: 30 RF: 0 simvastatin 20 mg tablet 20 mg PO DAILY 90 Days Qty: 90 RF: 0 duloxetine 60 mg capsule,delayed release(DR/EC) 60 mg PO DAILY RF: 0 Invokana 300 mg tablet 300 mg PO QAM RF: 0 zinc gluconate 30 mg tablet 30 mg PO DAILY RF: 0 spironolactone 50 mg tablet 50 mg PO DAILY Qty: 90 RF: 2 Lantus Solostar U-100 Insulin 100 unit/mL (3 mL) insulin pen 40 unit subcut QAM RF: 0 furosemide 40 mg tablet 40 mg PO BID Qty: 180 RF: 3 pramipexole 1 mg tablet 1 mg PO BID RF: 0 topiramate 25 mg tablet 50 mg PO BID RF: 0 diphenhydramine HCl [Benadryl] 25 mg capsule 25 mg PO QHS PRN (Reason: Insomnia) RF: 0 albuterol sulfate 90 mcg/actuation HFA aerosol inhaler 2 puff inhalation Q4H PRN (Reason: Sob &/Or Wheezing) RF: 0 tramadol 50 mg tablet 50 mg PO DAILY PRN (Reason: Pain) RF: 0 cholecalciferol (vitamin D3) 1,000 UNIT tablet 5,000 unit PO DAILY RF: 0 (DME) POCKET CHAMBER Spacer See Rx Instructions .ROUTE .MEDSUPPLY Qty: 1 RF: 0 acetaminophen 500 mg Tablet 1,000 mg PO QHS RF: 0 levothyroxine 100 mcg tablet 100 mcg PO DAILY RF: 0 ascorbic acid (vitamin C) 500 mg Tablet 500 mg PO DAILY RF: 0 lubiprostone 24 mcg capsule 24 mcg PO BIDCM RF: 0 Primary Care Provider: Ramakrishna Rossi Referrals: Ramakrishna Rossi MD [Primary Care Provider] - Disposition Disposition: Acute Care Hospital [facility]
[2021-08-31] MEDS: Ondansetron 4 MG/2 ML Vial IV (12:23)
[2021-08-31] MEDS: Morphine 4 MG/ML Syringe IV ×3 (12:24→16:56)
--- NOTE | 2021-08-31 12:35 | RAD_ITS ---
STUDY: X-RAY - PELVIS AND LEFT HIP REASON FOR EXAM: Left hip pain, left hip injury. TECHNIQUE: 2 views of the pelvis and hip. COMPARISON: Radiographs 08/21/2021. FINDINGS: There is mild vascular calcification. There are postoperative changes of the lumbar spine and a right hip arthroplasty. Normal bilateral iliac wings, sacroiliac joints and visualized sacrum. Normal bilateral superior and inferior pubic rami. Normal pubic symphysis. Normal bilateral ischial tuberosities. There is a subcapital left hip fracture. Normal acetabulum. Normal hip joint. RAD/HIP, UNI W/ Pelvis 2-3 Views IMPRESSION: Subcapital left hip fracture. Electronically Signed: Armani Ramirez MD at 13:15 EDT ,
--- NOTE | 2021-08-31 12:48 | RAD_ITS ---
STUDY: X-RAY CHEST REASON FOR EXAM: Female, 76 years old. fall , chest pain TECHNIQUE: Single AP portable view of the chest. COMPARISON: 08/21/2021 FINDINGS: The lungs are clear and expanded. There is no demonstrated pleural abnormality. Normal size heart. Moderate-sized hiatal hernia which is unchanged. Normal visualized pulmonary arteries. There is atherosclerotic tortuosity of the aortic arch and descending thoracic aorta. Normal visualized thoracic spine. Normal visualized ribs, clavicles, and shoulders. There is no demonstrated abnormality of the visualized soft tissue structures of the upper abdomen. RAD/Chest 1 View (Portable) IMPRESSION: No active pulmonary disease. Electronically Signed: Eric Butcher MD at 13:58 EDT ,
--- NOTE | 2021-08-31 12:49 | EKG12_ITS ---
Test Reason : FALL Blood Pressure : / mmHG Vent. Rate : 071 BPM Atrial Rate : 071 BPM P-R Int : 204 ms QRS Dur : 086 ms QT Int : 398 ms P-R-T Axes : 015 025 055 degrees QTc Int : 432 ms Normal sinus rhythm Normal ECG Confirmed by ANAY VILLA, GILDA ([id number]), video tape editor HILDA EVERETT ([id number]) on 09/01/2021 10:47:09 AM Referred By: CATHIE Confirmed By:GILDA CUEVA MD
[2021-08-31 13:11] LABS: Absolute Lymphocyte Count 1.06 X10^3/uL (0.83-4.51); Absolute Neutrophil Count 6.9 X10^3/uL (2.0-7.7); Basophil# 0.06 X10^3/uL; Basophil% 0.7 % (0-1); Eosinophil# 0.09 X10^3/uL; Hematocrit 40.3 % (37-47); Hemoglobin 12.9 g/dL (12.0-15.0); Lymphocyte # 1.06 X10^3/ul (0.83-4.51); Lymphocyte % 12.1 % (19-41); Mean Corpuscular Hgb 30.4 pg (27.0-32.0); Mean Corpuscular Volume 94.8 fL (81-99); Mean Platelet Vol. 9.4 fl (6.2-12.0); Monocyte# 0.62 X10^3/uL; Monocyte% 7.1 % (0-10); NRBC Flagged by Analyzer 0 % (0-5); Neutrophil # 6.87 X10^3/uL (2.7-7.7); Neutrophil % 78.3 % (47-70); Platelet Count 325 K/mm3 (150-450); RBC Distribution Width CV 13.6 % (11.6-14.6); RBC Distribution Width SD 47.4 fl (35.1-43.9); Red Blood Count 4.25 M/mm3 (4.2-5.4); White Blood Count 8.8 K/mm3 (4.4-11.0)
[2021-08-31 13:23] LABS: Anion Gap 5 (5-15); BUN 17 mg/dL (7-18); BUN/Creat Ratio 19.6 RATIO (10-20); Calcium,Total 9.1 mg/dL (8.5-10.1); Chloride 103 mmol/L (98-107); Creatinine, Serum 0.87 mg/dL (0.55-1.02); EST Glomerular Filtration Rate 67 mL/min (>60); Est Glom Filt Rate - Afr Amer 81 mL/min (>60); Estimated Creatinine Clearance 47.95 ml/min; Glucose 151 mg/dL (74-106); Potassium 3.6 mmol/L (3.5-5.1); Sodium Level 138 mmol/L (136-145)
--- NOTE | 2021-08-31 14:30 | HP.PCM.HOS_ITS ---
HPI - General General Date of Admission: 08/31/21 Date of Service: 08/31/21 Chief Complaint: Fall, LLE pain HPI Narrative The patient is a 76 y/o F w/ PMHx: HTN, HLD, COPD/Asthma, IBS, Hypothyroidism, Parkinson's disease, Seizure disorder, JHONY, Hx VTE (PE/DVT), Depression and Anxiety, Diabetes mellitus type II, GERD who presents to the [facility] ED on 08/31/21 with history of tripping over a door jam [place] [employer] with immediately L hip and leg pain prompting evaluation given it was ongoing and she was unable to bear weight. The [facility] called her daughter who went and got her and brought her to the ED. Discussed fall risk with patient and family she actually fell about 1 week prior and normally uses a cane but was not using at that time landing on her right side with a right-sided single rib fracture per daughter report. Patient reports that she has been hesitant to use a walker. Patient last took her Xarelto 08/30/2021 at approximately 7 PM. She is currently rating her pain in her left hip 8 out of 10 in severity and notes the pain is sharp, worse with any movement attempts. She notes that the morphine in the emergency room has assisted. Work-up in the ED included T97.9, heart rate 100, BP 119/82, respiratory rate 18, 99% on room air, CBC with WC 8.8, hemoglobin 12.9, platelets 325 without marked shift, BMP with glucose 151 otherwise not marked appearing, chest x-ray with no acute cardiopulmonary findings, plain film of the left hip and pelvis with a subcapital left hip fracture, EKG with sinus rhythm with no acute evidence of ischemia. ED discussed case with orthopedic surgeon Dr. Abraham. [facility] Medical History Asthma COPD (chronic obstructive pulmonary disease) Depression Diabetes mellitus type II, controlled Essential hypertension GERD (gastroesophageal reflux disease) Hiatal hernia History of basal cell carcinoma (BCC) History of DVT (deep vein thrombosis) History of pulmonary embolism Hyperlipidemia Hypothyroidism IBS (irritable bowel syndrome) Kidney disease Lumbar back pain Lung disease Obesity (BMI 30.0-34.9) JHONY (obstructive sleep apnea) Osteoarthritis Parkinsons disease Premature atrial contractions Seizure disorder Sleep apnea Symptomatic bradycardia Home Medications omeprazole 20 mg capsule,delayed release 20 mg PO DAILY 06/19/17 [History Last Taken 08/31/21] cholecalciferol (vitamin D3) 5,000 unit PO DAILY 07/28/17 [History Last Taken 08/30/21] rivaroxaban 20 mg tablet 20 mg PO DAILY 30 Days #30 tab 09/01/17 [History Last Taken 08/30/21] simvastatin 20 mg tablet 20 mg PO DAILY 90 Days #90 tab 09/01/17 [History Last Taken 08/30/21] albuterol sulfate 90 mcg/actuation aerosol inhaler 2 puff INHALATION Q4H PRN g 12/04/20 [History Last Taken Unknown] canagliflozin 300 mg tablet 300 mg PO QAM 12/04/20 [History Last Taken 08/31/21] duloxetine 60 mg capsule,delayed release 60 mg PO DAILY 12/04/20 [History Last Taken 08/30/21] spironolactone 50 mg tablet 50 mg PO DAILY #90 tab 12/04/20 [Rx Last Taken 08/30/21] tramadol 50 mg tablet 50 mg PO DAILY PRN tab 12/04/20 [History Last Taken 1 Week Ago ~08/24/21] zinc gluconate 30 mg tablet 30 mg PO DAILY 12/04/20 [History Last Taken 08/30/21] furosemide 40 mg tablet 40 mg PO BID #180 tab 01/18/21 [Rx Last Taken 08/31/21] inhalational spacing device [POCKET CHAMBER] #1 ea 01/23/21 [Rx Last Taken Unknown] diphenhydramine HCl 25 mg capsule 25 mg PO QHS PRN 06/02/21 [History Last Taken 08/30/21] insulin glargine 100 unit/mL (3 mL) subcutaneous pen 40 unit SUBCUT QAM ml 06/02/21 [History Last Taken 08/31/21] pramipexole 1 mg tablet 1 mg PO BID tab 06/02/21 [History Last Taken 08/31/21] topiramate 25 mg tablet 50 mg PO BID tab 06/02/21 [History Last Taken 08/31/21] acetaminophen 1,000 mg PO QHS 08/31/21 [History Last Taken 08/30/21] ascorbic acid (vitamin C) 500 mg PO DAILY 08/31/21 [History Last Taken 08/30/21] levothyroxine 100 mcg PO DAILY 08/31/21 [History Last Taken 08/31/21] lubiprostone 24 mcg PO BIDCM 08/31/21 [History Last Taken 08/31/21] Allergy/AdvReac Type Severity Reaction Status Date / Time nitrofurantoin Allergy Hives Verified 08/31/21 11:32 macrocrystalline [From Macrodantin] rosuvastatin [From Crestor] AdvReac Severe Muscle Verified 08/31/21 11:32 weakness colesevelam [From WelChol] AdvReac Intermediate nausea Verified 08/31/21 11:32 nitrofurantoin AdvReac Intermediate Hives Verified 08/31/21 11:32 [From Furadantin] metformin AdvReac Unknown Gi side Verified 08/31/21 11:32 effects MAPLE TREES Allergy Hives Uncoded 08/31/21 11:32 DAIRY AdvReac Upset Uncoded 08/31/21 11:32 Stomach Family History (Reviewed 06/02/21 @ 10:43 by Judit Maria [employer], [employer]) Father CAD (coronary artery disease) Diabetes Myocardial infarction Alzheimers disease Hypertension Parkinson's disease Cancer melanoma History of blood clots Mother Diabetes AAA (abdominal aortic aneurysm) Bleeding disorder Colon cancer Thyroid disorder Brother Multiple sclerosis Skin cancer Surgical History (Reviewed 06/02/21 @ 10:43 by Judit Maria [employer] SALES ENGINEER, [employer] SAL[employer] ENGINEER-C) History of cholecystectomy History of lumbar fusion (~2012) History of Belkys fundoplication History of right hip replacement (~07/08/15) History of tonsillectomy and adenoidectomy Hx of hernia repair Hx of lumbar discectomy Social History Smoking Status: Never smoker alcohol intake: never substance use type: does not use diet: diabetic and gluten free caffeine: No what type of physical activity do you participate in: none seatbelt use: always do you feel safe at home: Yes ROS ROS Narrative Admission Review of Systems: CONSTITUTIONAL: No weight loss, fever, chills, + weakness or fatigue. HEENT: Eyes: No visual loss, blurred vision, double vision or yellow sclerae. Ears, Nose, Throat: No hearing loss, sneezing, congestion, runny nose or sore throat. SKIN: No rash or itching, lesions, wounds. CARDIOVASCULAR: No chest pain, chest pressure or chest discomfort, palpitations, edema, orthopnea, syncopal events. RESPIRATORY: No shortness of breath, cough or sputum, wheezing, hemoptysis. GASTROINTESTINAL: No anorexia, nausea, vomiting or diarrhea, abdominal pain, melena, BRBPR. GENITOURINARY: No dysuria, frequency, urgency or retention. NEUROLOGICAL: + Hx seizure disorder, Hx Parkinson's disease. No headache, dizziness, syncope, paralysis, ataxia, numbness or tingling in the extremities, focal weakness, change in bowel or bladder control. MUSCULOSKELETAL: + muscle, back pain, joint pain or stiffness. HEMATOLOGIC: No anemia, bleeding or bruising. LYMPHATICS: No enlarged nodes. No history of splenectomy. PSYCHIATRIC: + history of depression or anxiety. ENDOCRINOLOGIC: No reports of sweating, cold or heat intolerance. No polyuria or polydipsia. ALLERGIES: + history of asthma, rhinitis. Vital Signs Vital Signs Vital Signs: 08/31/21 11:30 08/31/21 12:19 Temperature 97.9 F Temperature Source Temporal Pulse Rate 100 Respiratory Rate 18 Respiratory Effort Normal Non-Labored Respiratory Depth Normal Respiratory Pattern Normal Blood Pressure 119/82 H Blood Pressure Mean 94 Pulse Ox 99 Oxygen Delivery Method Room Air Room Air Weight Weight: 175 lb Body Mass Index (BMI) 29.1 Physical Exam Narrative Physical Examination: General: Awake, alert, oriented x 3 and cooperative, laying in the ED bed, uncomfortable appearing, rating pain currently to the left hip 8 out of 10 in s everity. Skin: Normal color, normal turgor, no icterus, no cyanosis except occasional staged ecchymoses, recent fall with left hip pain with fractures. HEENT: AT/NC, EOMI, PERRLA, mildly dry MM, no carotid bruits or JVD noted. Lungs: Mildly diminished, greater bases, poor effort no rales, ronchi or wheezing. Heart: Currently regular rate and rhythm; no gallop, rub audible. Abdomen: Soft, overweight, NTTP, ND, distant normal BS, no HSM. Extremities: No cyanosis, no clubbing, bilateral ankle not markedly pitting edema, peripheral pulses intact, status post fall with left hip fracture. Neurological: Patient awake, alert, oriented as noted, cognitive function intact; pupils equally reactive to light and accommodation, cranial nerves II- XII grossly normal, moving all 4 extremities however limited left lower extremity movement given recent fall with left hip fracture, strength accordingly severely globally decreased. Psychiatric: Affect appears fatigued, uncomfortable, no acute evidence of depressive or anxiety feelings. Results Lab / Micro Data Result Diagrams: 08/31/21 13:05 08/31/21 13:05 Labs: Laboratory Results - last 24 hr 08/31/21 13:05: WBC 8.8, RBC 4.25, Hgb 12.9, Hct 40.3, MCV 94.8, MCH 30.4, MCHC 32.0, RDW Std Deviation 47.4 H, RDW Coeff of Basilio 13.6, Plt Count 325, MPV 9.4, Immature Gran % (Auto) 0.800, Neut % (Auto) 78.3 H, Lymph % (Auto) 12.1 L, [place] % (Auto) 7.1, Eos % (Auto) 1.0, Baso % (Auto) 0.7, Absolute Neuts (auto) 6.9, Absolute Lymphs (auto) 1.06, Nucleated RBC % 0 08/31/21 13:05: Sodium 138, Potassium 3.6, Chloride 103, Carbon Dioxide 30.0, Anion Gap 5, BUN 17, Creatinine 0.87, Estim Creat Clear Calc 47.95, Est GFR (MDRD) Af Amer 81, Est GFR (MDRD) Non-Af 67, BUN/Creatinine Ratio 19.6, Glucose 151 H, Calcium 9.1 Radiology Impression Hip/Pelvis X-Ray 08/31/21 12:35 IMPRESSION: Subcapital left hip fracture. Electronically Signed: Armani Ramirez MD at 13:15 EDT , Chest X-Ray 08/31/21 12:48 IMPRESSION: No active pulmonary disease. Electronically Signed: Eric Butcher MD at 13:58 EDT , Assessment & Plan Assessment/Plan (1) Closed fracture of left hip: QUALIFIERS: Encounter type: initial encounter Qualified Code(s): S72.002A - Fracture of unspecified part of neck of left femur, initial encounter for closed fracture PLAN: The patient is a 76 y/o F w/ PMHx: HTN, HLD, COPD/Asthma, IBS, Hypothyroidism, Parkinson's disease, Seizure disorder, JHONY, Hx VTE (PE/DVT), Depression and Anxiety, Diabetes mellitus type II, GERD who presents to the [facility] ED on 08/31/21 with history of [place] door jam [place] the [place] with immediately L hip and leg pain prompting evaluation given it was ongoing and she was unable to bear weight. #1. General debility, L hip pain s/p mechanical fall w/ subcapital left hip fr acture: Plain film noting left subcapital hip fracture. Orthopedic surgery consulted from ED. Will admit to MS, will continue ADA diet given patient usage of anticoagulation OR will be delayed as last dose administered 08/30/2021 with plan transition to heparin drip this evening but will discuss with orthopedic surgery, monitor I/Os, frequent positioning, fall precautions, pain, anti-emetic regimen. Will need PT/OT following operative intervention. CM consulted for discharge planning. NSQIP given patient's history, advanced age, usage already of assist devices and fall history gives her an average risk of complications however an above average risk of readmission. EKG with sinus rhythm with no acute evidence of ischemia. Patient denies any history of chest pain or dyspnea with activities. She is very active still and performs all her own ADLs. From discussions patient is supposed to use at least a cane but often does not use this and has fallen as a result. Fall history seems more prominently due to lack of appropriate usage of assist devices. Will transition to heparin drip at 7 PM this evening when patient would next be due for Xarelto for planned OR. Agree with transition to OR and will discuss case with orthopedic surgery. #2. History VTE (PE/DVT): Patient reports significant history of nearly sequential postop DVT/PE therefore she is on lifelong anticoagulation. She denies ever having had any hyper coagulant evaluation. Will transition off xarelto to heparin drip at 7 #3. Chronic COPD/asthma: Not on any routine inhalers, PRN albuterol, HOB, IS parameters. #4. Diabetes mellitus type II: Hold oral home regimen, continue home insulin regimen, ADA diet, accu checks w/ ISS. #5. Hypertension: Continue home regimen including spironolactone, Lasix with hold parameters as needed, PRN hydralazine. #6. Hyperlipidemia: We will continue patient on statin therapy. #7. Parkinson's disease: Maintain on fall precautions, from review of current list not on any regimen including Sinemet, encourage continued outpatient follow-up. #8. Hypothyroidism: Continue home synthroid regimen. #9. Anxiety and depression: We will continue patient home duloxetine regimen. #10. Seizure disorder: We will continue patient home Topamax regimen. #11. GERD: We will continue patient on PPI. #12. Restless leg syndrome: We will continue patient home Mirapex regimen. #13 JHONY: CPAP q HS, family notes intention to bring her own from home. #14. DVT prophylaxis: SCDs, holding patient home Xarelto with transition to heparin drip at 7 PM which is when patient would normally take her Xarelto dose. #15. CODE status: Patient HCPDREAD is her son Mikey and her daughter Laure and living will is currently in place. Discussed CODE status at length including difference between FULL code, DNR-CCA and DNR-CC status. Following discussions about the differences in these status, requested Full Code status. Advanced Care Planning Face to Face Time: 16 minutes. Charges/Coding Visit Charges Inpatient E&M: 06395 Init Hosp L3 Procedures Hospitalists Procedures: 52153 Advncd Care Plan 30 Min
--- NOTE | 2021-08-31 14:42 | NURSING ---
MED SURG LEFT HIP FRACTURE, FALL WHITE
[2021-08-31 15:06] VITALS: BP 106/87; PULSE 80; RESP 14; RESP 16; TEMP 36.6; O2SAT 97
[2021-08-31 15:56] LABS: Magnesium 2.5 mg/dL (1.6-2.6)
[2021-08-31 16:11] VITALS: BMI 28.8
[2021-08-31 16:15] VITALS: BP 119/59; PULSE 70; RESP 18; TEMP 36.6; O2SAT 98
[2021-08-31] MEDS: Furosemide 40 MG Tablet PO (16:53)
[2021-08-31] MEDS: traMADol 50 MG Tablet PO (16:56)
[2021-08-31] MEDS: 0.9% Saline Lock 10 ML Syringe IV ×2 (16:56→20:32)
--- NOTE | 2021-08-31 17:02 | PCM.CONS.GEN ---
Assessment & Plan Assessment/Plan (1) Closed fracture of left hip: QUALIFIERS: Encounter type: initial encounter Qualified Code(s): S72.002A - Fracture of unspecified part of neck of left femur, initial encounter for closed fracture PLAN: Natural history of the disease process and treatment options were discussed the patient. We discussed treatment including percutaneous pinning of the hip, hemiarthroplasty and total replacement. Considering patient's previous history of degenerative hip disease her current findings consistent with mild arthrosis and her displaced femoral neck fracture as well as her activity level and age we have elected to proceed with a total hip replacement. Patient understands risk and benefit of this procedure as they were discussed with her today including but limited blood loss, DVTs, PEs, nervous damage, infection, the risk of anesthesia include loss of life. Fractures and dislocations. Patient understands risk of dislocation is higher after hip fracture in the face of total replacement. Due to the patient's use of anticoagulants particularly Xarelto we will wait 48 hours prior to proceeding with surgical intervention. Patient be placed on a heparin drip due to her significant history for VTE's in the past. We will DC the heparin drip 12 hours preoperatively. Additionally I discussed the patient she continues to be a fall risk and we will likely enroll her in the on the bone program here at the hospital as this is considered a fragility fracture. I explained to the patient that if she continues to fall she will likely develop further fractures which can limit her ability to remain independent and perform her own ADLs. Patient demonstrated understanding. Sounds like the hospitalist had a similar conversation. (2) Fall: PLAN: Thorough discussion was had with the patient about fall risk. See above. Patient was encouraged to use walker or cane to limit falls. (3) History of pulmonary embolism: PLAN: Managed by primary service. Heparin drip as outlined above. DC Xarelto until after surgery. Due to half-life of Xarelto we will need to wait 48 hours before proceeding with surgery. HPI Consult Data Date of Consult: 08/31/21 HPI Narrative HPI Narrative: DUNG MEEK, is a 76 F With history of multiple medical comorbidities as well as Parkinson's disease who presents With left hip pain. Patient notes she has a history of treatment for left hip osteoarthritis however she denies significant amount of pain. Her arthritis was previously noted on x-rays for treatment of her right hip. Patient has a history of previous lumbar fusion as well. Patient has had 2 falls within the last 6 months that required radiographic follow-up. Most recent one was 10 days ago where she sustained a broken rib. Currently that pain is under control. Patient was in the bank doing her errands today when she had a mechanical fall. She had immediate pain in the left hip. She is been unable to bear weight. Pain is rated 8 out of 10. It is in the groin and thigh and radiates down to the knee. It is worse with motion and better with immobilization.Patient typically ambulates on her own. She has been resistant to use a walker or cane in the past. She maintains all of her own ADLs. Patient does have a history significant for VTEs after multiple previous surgeries. She is currently anticoagulated with Xarelto. Her last dose was August 30, 2021 at 7 PM. [facility] Medical History Asthma COPD (chronic obstructive pulmonary disease) Depression Diabetes mellitus type II, controlled Essential hypertension GERD (gastroesophageal reflux disease) Hiatal hernia History of basal cell carcinoma (BCC) History of DVT (deep vein thrombosis) History of pulmonary embolism Hyperlipidemia Hypothyroidism IBS (irritable bowel syndrome) Kidney disease Lumbar back pain Lung disease Obesity (BMI 30.0-34.9) JHONY (obstructive sleep apnea) Osteoarthritis Parkinsons disease Premature atrial contractions Seizure disorder Sleep apnea Symptomatic bradycardia Home Medications omeprazole 20 mg capsule,delayed release 20 mg PO DAILY 06/19/17 [History Last Taken 08/31/21] cholecalciferol (vitamin D3) 5,000 unit PO DAILY 07/28/17 [History Last Taken 08/30/21] rivaroxaban 20 mg tablet 20 mg PO DAILY 30 Days #30 tab 09/01/17 [History Last Taken 08/30/21] simvastatin 20 mg tablet 20 mg PO DAILY 90 Days #90 tab 09/01/17 [History Last Taken 08/30/21] albuterol sulfate 90 mcg/actuation aerosol inhaler 2 puff INHALATION Q4H PRN g 12/04/20 [History Last Taken Unknown] canagliflozin 300 mg tablet 300 mg PO QAM 12/04/20 [History Last Taken 08/31/21] duloxetine 60 mg capsule,delayed release 60 mg PO DAILY 12/04/20 [History Last Taken 08/30/21] spironolactone 50 mg tablet 50 mg PO DAILY #90 tab 12/04/20 [Rx Last Taken 08/30/21] tramadol 50 mg tablet 50 mg PO DAILY PRN tab 12/04/20 [History Last Taken 1 Week Ago ~08/24/21] zinc gluconate 30 mg tablet 30 mg PO DAILY 12/04/20 [History Last Taken 08/30/21] furosemide 40 mg tablet 40 mg PO BID #180 tab 01/18/21 [Rx Last Taken 08/31/21] inhalational spacing device [POCKET CHAMBER] #1 ea 01/23/21 [Rx Last Taken Unknown] diphenhydramine HCl 25 mg capsule 25 mg PO QHS PRN 06/02/21 [History Last Taken 08/30/21] insulin glargine 100 unit/mL (3 mL) subcutaneous pen 40 unit SUBCUT QAM ml 06/02/21 [History Last Taken 08/31/21] pramipexole 1 mg tablet 1 mg PO BID tab 06/02/21 [History Last Taken 08/31/21] topiramate 25 mg tablet 50 mg PO BID tab 06/02/21 [History Last Taken 08/31/21] acetaminophen 1,000 mg PO QHS 08/31/21 [History Last Taken 08/30/21] ascorbic acid (vitamin C) 500 mg PO DAILY 08/31/21 [History Last Taken 08/30/21] levothyroxine 100 mcg PO DAILY 08/31/21 [History Last Taken 08/31/21] lubiprostone 24 mcg PO BIDCM 08/31/21 [History Last Taken 08/31/21] Allergy/AdvReac Type Severity Reaction Status Date / Time nitrofurantoin Allergy Hives Verified 08/31/21 11:32 macrocrystalline [From Macrodantin] rosuvastatin [From Crestor] AdvReac Severe Muscle Verified 08/31/21 11:32 weakness colesevelam [From WelChol] AdvReac Intermediate nausea Verified 08/31/21 11:32 nitrofurantoin AdvReac Intermediate Hives Verified 08/31/21 11:32 [From Furadantin] metformin AdvReac Unknown Gi side Verified 08/31/21 11:32 effects MAPLE TREES Allergy Hives Uncoded 08/31/21 11:32 DAIRY AdvReac Upset Uncoded 08/31/21 11:32 Stomach Family History Father CAD (coronary artery disease) Diabetes Myocardial infarction Alzheimers disease Hypertension Parkinson's disease Cancer melanoma History of blood clots Mother Diabetes AAA (abdominal aortic aneurysm) Bleeding disorder Colon cancer Thyroid disorder Brother Multiple sclerosis Skin cancer Surgical History History of cholecystectomy History of lumbar fusion (~2012) History of Belkys fundoplication History of right hip replacement (~07/08/15) History of tonsillectomy and adenoidectomy Hx of hernia repair Hx of lumbar discectomy Social History Smoking Status: Never smoker alcohol intake: never substance use type: does not use diet: diabetic and gluten free caffeine: No what type of physical activity do you participate in: none seatbelt use: always do you feel safe at home: Yes ROS Constitutional Constitutional: Reports systems reviewed and no addt'l complaints, except as documented Eyes Eyes: Reports systems reviewed and no addt'l complaints, except as documented ENT HEENT: Reports systems reviewed and no addt'l complaints, except as documented Cardiovascular Cardiovascular: Reports systems reviewed and no addt'l complaints, except as documented Respiratory/Chest Respiratory/Chest: Reports systems reviewed and no addt'l complaints, except as documented Gastrointestinal Gastrointestinal: Reports systems reviewed and no addt'l complaints, except as documented Genitourinary Genitourinary: Reports systems reviewed and no addt'l complaints, except as documented Musculoskeletal Musculoskeletal: Reports systems reviewed and no addt'l complaints, except as documented Integumentary Integumentary: Reports systems reviewed and no addt'l complaints, except as documented Neurologic Neurologic: Reports systems reviewed and no addt'l complaints, except as documented Psychiatric Psychiatric: Reports systems reviewed and no addt'l complaints, except as documented Endocrine Endocrinology: Reports systems reviewed and no addt'l complaints, except as documented Physical Exam Narrative Patient is a pleasant 76-year-old female who looks her stated age. She is sitting comfortably in bed. Const alert and oriented x3 HEENT normocephalic Eyes PERRL Neck No nuchal rigidity Chest Chest Narrative: Mild tenderness of her right rib Resp normal respiratory effort Cardio Cardio Narrative: Regular pulse rate GI non-distended Extremity Extremity Narrative: Left lower extremity: Skin clean, dry, and intact. Limb is shortened and externally rotated Motor is intact dorsiflexion, EHL and plantar flexion. Sensation is intact to light touch saphenous, daniela,l superficial peroneal, deep peroneal and tibial distributions. Calves are soft and supple. Skin no rashes or lesions noted and no wounds Neuro oriented x3 Psych mental status grossly normal and affect normal Lab / Micro Data Result Diagrams: 08/31/21 13:05 08/31/21 13:05 Labs: Laboratory Results - last 24 hr 08/31/21 13:04: Magnesium 2.5 08/31/21 13:05: WBC 8.8, RBC 4.25, Hgb 12.9, Hct 40.3, MCV 94.8, MCH 30.4, MCHC 32.0, RDW Std Deviation 47.4 H, RDW Coeff of Basilio 13.6, Plt Count 325, MPV 9.4, Immature Gran % (Auto) 0.800, Neut % (Auto) 78.3 H, Lymph % (Auto) 12.1 L, [place] % (Auto) 7.1, Eos % (Auto) 1.0, Baso % (Auto) 0.7, Absolute Neuts (auto) 6.9, Absolute Lymphs (auto) 1.06, Nucleated RBC % 0 08/31/21 13:05: Sodium 138, Potassium 3.6, Chloride 103, Carbon Dioxide 30.0, Anion Gap 5, BUN 17, Creatinine 0.87, Estim Creat Clear Calc 47.95, Est GFR (MDRD) Af Amer 81, Est GFR (MDRD) Non-Af 67, BUN/Creatinine Ratio 19.6, Glucose 151 H, Calcium 9.1 Radiology Impression Hip/Pelvis X-Ray 08/31/21 12:35 IMPRESSION: Subcapital left hip fracture. Electronically Signed: Armani Ramirez MD at 13:15 EDT , X-rays of the hip and pelvis were reviewed showing previous right total replacement. Previous lumbar fusion. Left subcapital femoral neck fracture displaced. Chest X-Ray 08/31/21 12:48 IMPRESSION: No active pulmonary disease. Electronically Signed: Eric Butcher MD at 13:58 EDT ,
[2021-08-31 17:15] LABS: Bedside Glucose 85 mg/dL (74-106)
[2021-08-31 17:35] LABS: International Normalized Ratio 1.4; Prothrombin Time (Protime)PT. 16.4 SECONDS (11.7-14.9)
[2021-08-31 17:36] LABS: Partial Thromboplast Time 38.3 Seconds (24.1-36.2)
[2021-08-31 17:43] LABS: ALB/GLOB Ratio 0.9 RATIO (0.9-2.4); AST(SGOT) 67 U/L (15-37); Alanine Aminotransfer ALT/SGPT 41 U/L (13-56); Albumin, Serum 3.4 g/dL (3.2-5.0); Alkaline Phosphatase 235 U/L (45-117); Anion Gap 6 (5-15); BUN 15 mg/dL (7-18); BUN/Creat Ratio 19.4 RATIO (10-20); Calcium,Total 9.3 mg/dL (8.5-10.1); Chloride 103 mmol/L (98-107); Creatinine, Serum 0.77 mg/dL (0.55-1.02); EST Glomerular Filtration Rate 77 mL/min (>60); Est Glom Filt Rate - Afr Amer 93 mL/min (>60); Estimated Creatinine Clearance 41.72 ml/min; Globulin 3.9 g/dL (2.2-4.2); Glucose 109 mg/dL (74-106); Potassium 3.7 mmol/L (3.5-5.1); Protein, Total 7.3 g/dL (6.4-8.2); Sodium Level 138 mmol/L (136-145)
[2021-08-31] MEDS: Heparin Injection (Vial) 5,000 UNIT/ML VIAL 5000 UNIT IV (19:06)
[2021-08-31] MEDS: HEPARIN/D5w 25,000 UNITS 25,000 UNITS/250 ML IV.SOLN. 0.1 UNITS CONT INF (19:11)
[2021-08-31 20:30] VITALS: BP 125/70; PULSE 78; RESP 16; TEMP 36.6; O2SAT 97
[2021-08-31] MEDS: Morphine 2 MG/ML Syringe IV (20:32)
[2021-08-31 20:50] VITALS: O2SAT 98
--- NOTE | 2021-08-31 20:50 | CPS ---
Pt's home CPAP unit set up and placed on pt.
[2021-08-31] MEDS: Insulin Lispro 100 UNIT/ML INSULN.PEN SC (21:33)
[2021-08-31] MEDS: Topiramate 50 MG Tablet PO (21:34)
[2021-08-31] MEDS: Atorvastatin Calcium 10 MG Tablet PO (21:34)
[2021-08-31] MEDS: Pramipexole Di-HCl 1 MG Tablet PO (21:34)
[2021-08-31] MEDS: Senna/Docusate Sodium 1 Tablet 2 TABLET PO (21:34)
[2021-08-31 21:40] LABS: Bedside Glucose 232 mg/dL (74-106)
[2021-09-01 02:08] LABS: Partial Thromboplast Time 93.8 Seconds (24.1-36.2)
[2021-09-01 02:18] VITALS: BP 125/74; PULSE 70; RESP 16; TEMP 36.6; O2SAT 100
[2021-09-01 03:07] LABS: ALB/GLOB Ratio 0.8 RATIO (0.9-2.4); AST(SGOT) 48 U/L (15-37); Alanine Aminotransfer ALT/SGPT 43 U/L (13-56); Alkaline Phosphatase 233 U/L (45-117); Anion Gap 7 (5-15); BUN 16 mg/dL (7-18); BUN/Creat Ratio 19.4 RATIO (10-20); Calcium,Total 8.8 mg/dL (8.5-10.1); Chloride 103 mmol/L (98-107); Creatinine, Serum 0.82 mg/dL (0.55-1.02); EST Glomerular Filtration Rate 71 mL/min (>60); Est Glom Filt Rate - Afr Amer 86 mL/min (>60); Estimated Creatinine Clearance 50.88 ml/min; Globulin 3.9 g/dL (2.2-4.2); Glucose 134 mg/dL (74-106); Protein, Total 6.9 g/dL (6.4-8.2); Sodium Level 135 mmol/L (136-145)
[2021-09-01] MEDS: 0.9% Saline Lock 10 ML Syringe IV ×3 (05:23→21:23)
[2021-09-01] MEDS: Levothyroxine 100 MCG Tablet PO (05:24)
[2021-09-01] MEDS: Morphine 2 MG/ML Syringe IV ×2 (06:30→21:22)
[2021-09-01 06:41] LABS: Bedside Glucose 112 mg/dL (74-106)
[2021-09-01] MEDS: Acetaminophen 325 MG Tablet 650 MG PO ×2 (08:19→17:32)
[2021-09-01] MEDS: traMADol 50 MG Tablet PO (08:19)
[2021-09-01] MEDS: Lubiprostone 24 MCG Capsule PO ×2 (08:20→17:36)
[2021-09-01] MEDS: DULoxetine Hcl 60 MG Capsule PO (08:21)
[2021-09-01] MEDS: Spironolactone 50 MG Tablet PO (08:21)
[2021-09-01] MEDS: Pantoprazole Sodium 20 MG Tablet PO (08:22)
[2021-09-01 08:31] VITALS: BP 104/65; PULSE 78; RESP 18; TEMP 36.6; O2SAT 95
[2021-09-01 09:42] LABS: Absolute Lymphocyte Count 1.36 X10^3/uL (0.83-4.51); Absolute Neutrophil Count 5.4 X10^3/uL (2.0-7.7); Basophil# 0.06 X10^3/uL; Basophil% 0.8 % (0-1); Eosinophil# 0.18 X10^3/uL; Eosinophils% 2.4 % (0-5); Hematocrit 38.1 % (37-47); Hemoglobin 12.6 g/dL (12.0-15.0); Lymphocyte # 1.36 X10^3/ul (0.83-4.51); Lymphocyte % 17.8 % (19-41); Mean Corp Hgb Conc 33.1 g/dL (32-36); Mean Corpuscular Hgb 30.7 pg (27.0-32.0); Mean Corpuscular Volume 92.7 fL (81-99); Mean Platelet Vol. 9.3 fl (6.2-12.0); Monocyte# 0.59 X10^3/uL; Monocyte% 7.7 % (0-10); NRBC Flagged by Analyzer 0 % (0-5); Neutrophil % 70.8 % (47-70); Platelet Count 293 K/mm3 (150-450); RBC Distribution Width CV 13.6 % (11.6-14.6); RBC Distribution Width SD 46.4 fl (35.1-43.9); Red Blood Count 4.11 M/mm3 (4.2-5.4); White Blood Count 7.6 K/mm3 (4.4-11.0)
[2021-09-01 09:56] LABS: Partial Thromboplast Time 55.7 Seconds (24.1-36.2)
--- NOTE | 2021-09-01 10:05 | CASEMGMT ---
RN CARLOS Face to Face with patient for initial transition planning/care coordination assessment. RN CARLOS introduced self and role at [facility]. Patient lying in bed, alert and oriented. Patient willing to participate in assessment and is able to answer all questions appropriately. Care providers, pharmacy, and demographics verified. Patient wishes to discharge to SNF at discharge. Patient provided with list of SNF with medicare ratings and quality measures. Patient [facility] choice is [facility], [facility]nd [facility], 3rd [facility]. Patient states she has no further needs or concerns at this time. SW updated regarding SNF choices. CM to follow for discharge planning needs that may arise. PCP: [place] Specialists: Dalia, tool machine set up operator; Thomas, neurologist; RAMON Roth Preferred Pharmacy: [facility] Insurance: [employer] [facility] Prescription Benefit: yes Living Will/HPOA: son Mikey Walters HPOA LNOK: , son, daughter Living Arrangements: Patient lives with in a 2 story home with bed and bath on first floor. 1 step and grab bar to enter the home. Transportation: self, DME/HHC: Patient states she has shower chair, raised toilet, walker, rollator, cpap, and pulse ox at home. [facility]. [facility]position Plan: [facility] pending acceptance and precert Mely MEHTA, RN, CM
[2021-09-01] MEDS: Senna/Docusate Sodium 1 Tablet 2 TABLET PO (11:08)
[2021-09-01] MEDS: Pramipexole Di-HCl 1 MG Tablet PO ×2 (11:08→21:23)
[2021-09-01] MEDS: Furosemide 40 MG Tablet PO ×2 (11:08→17:41)
[2021-09-01] MEDS: Topiramate 50 MG Tablet PO ×2 (11:08→21:23)
[2021-09-01] MEDS: Insulin Glargine-YFGN 100 UNIT/ML Pen 40 UNIT SC (11:09)
--- NOTE | 2021-09-01 11:16 | PCM.PN.HOSP ---
Documented by User: Abram SERRANO 09/01/21 11:26 Subjective Subjective Patient is a 76-year-old female lying in bed, alert and orient x3. Patient reports of ongoing left hip pain, but reports that this is controlled on current pain regimen. Denies chest pain, shortness of breath, palpitations, hemoptysis, sputum production, fever, chills, difficulty urinating or N/V/D. Objective Data Objective Data Vital Signs: Vital Signs Temp Pulse Resp BP Pulse Ox 97.9 F 78 18 104/65 95 09/01/21 08:31 09/01/21 08:31 09/01/21 08:31 09/01/21 08:31 09/01/21 08:31 Oxygen Delivery Method Room Air Weight: 173 lb 4.533 oz Body Mass Index (BMI) 28.8 Intake & Output: Intake and Output for Last 24 Hours 08/30/21 08/31/21 09/01/21 23:59 23:59 23:59 Intake Total 750 / 750 78.00 / 78.00 Output Total 800 / 800 Balance 750 / 450 -722.00 / -722.00 Lab / Micro Data Result Diagrams: 09/01/21 09:30 09/01/21 01:46 Labs: Laboratory Results - last 24 hr 08/31/21 13:04: Magnesium 2.5 08/31/21 13:05: WBC 8.8, RBC 4.25, Hgb 12.9, Hct 40.3, MCV 94.8, MCH 30.4, MCHC 32.0, RDW Std Deviation 47.4 H, RDW Coeff of Basilio 13.6, Plt Count 325, MPV 9.4, Immature Gran % (Auto) 0.800, Neut % (Auto) 78.3 H, Lymph % (Auto) 12.1 L, [place] % (Auto) 7.1, Eos % (Auto) 1.0, Baso % (Auto) 0.7, Absolute Neuts (auto) 6.9, Absolute Lymphs (auto) 1.06, Nucleated RBC % 0 08/31/21 13:05: Sodium 138, Potassium 3.6, Chloride 103, Carbon Dioxide 30.0, Anion Gap 5, BUN 17, Creatinine 0.87, Estim Creat Clear Calc 47.95, Est GFR (MDRD) Af Amer 81, Est GFR (MDRD) Non-Af 67, BUN/Creatinine Ratio 19.6, Glucose 151 H, Calcium 9.1 08/31/21 16:50: PT 16.4 H, INR 1.4, APTT 38.3 H 08/31/21 16:50: Sodium 138, Potassium 3.7, Chloride 103, Carbon Dioxide 29.0, Anion Gap 6, BUN 15, Creatinine 0.77, Estim Creat Clear Calc 41.72, Est GFR (MDRD) Af Amer 93, Est GFR (MDRD) Non-Af 77, BUN/Creatinine Ratio 19.4, Glucose 109 H, Calcium 9.3, Total Bilirubin 0.70, AST 67 H, ALT 41, Alkaline Phosphatase 235 H, Total Protein 7.3, Albumin 3.4, Globulin 3.9, Albumin/Globulin Ratio 0.9 08/31/21 16:50: Blood Type A POSITIVE, Antibody Screen NEGATIVE 08/31/21 16:51: POC Glucose 85 08/31/21 21:29: POC Glucose 232 H 09/01/21 01:46: Sodium 135 L, Potassium 4.0, Chloride 103, Carbon Dioxide 25.0, Anion Gap 7, BUN 16, Creatinine 0.82, Estim Creat Clear Calc 50.88, Est GFR (MDRD) Af Amer 86, Est GFR (MDRD) Non-Af 71, BUN/Creatinine Ratio 19.4, Glucose 134 H, Calcium 8.8, Total Bilirubin 0.50, AST 48 H, ALT 43, Alkaline Phosphatase 233 H, Total Protein 6.9, Albumin 3.0 L, Globulin 3.9, Albumin/Globulin Ratio 0.8 L 09/01/21 01:46: APTT 93.8 H* 09/01/21 06:33: POC Glucose 112 H 09/01/21 09:30: WBC 7.6, RBC 4.11 L, Hgb 12.6, Hct 38.1, MCV 92.7, MCH 30.7, MCHC 33.1, RDW Std Deviation 46.4 H, RDW Coeff of Basilio 13.6, Plt Count 293, MPV 9.3, Immature Gran % (Auto) 0.500, Neut % (Auto) 70.8 H, Lymph % (Auto) 17.8 L, [place] % (Auto) 7.7, Eos % (Auto) 2.4, Baso % (Auto) 0.8, Absolute Neuts (auto) 5.4, Absolute Lymphs (auto) 1.36, Nucleated RBC % 0 Radiography Diagnostic Testing: Radiology Impression Hip/Pelvis X-Ray 08/31/21 12:35 IMPRESSION: Subcapital left hip fracture. Electronically Signed: Armani Ramirez MD at 13:15 EDT , Chest X-Ray 08/31/21 12:48 IMPRESSION: No active pulmonary disease. Electronically Signed: Eric Butcher MD at 13:58 EDT , Physical Exam Const alert, oriented x3 and no apparent distress HEENT head/scalp atraumatic and moist oral mucous membranes Head and Scalp: normocephalic Eyes PERRL, EOMs intact bilaterally and conjunctivae normal Neck no lymphadenopathy, supple and no JVD Resp normal respiratory effort, no retractions and no use of accessory muscles Cardio regular rate, regular rhythm and no JVD GI normal to inspection, nondistended, normoactive bowel sounds and soft to palpation Extremity Extremity Narrative: Pain in the left hip radiating down to the left leg. Skin no rashes or lesions noted, no wounds and skin turgor normal Neuro CN's II-XII intact bilaterally Psych affect normal Assessment & Plan Assessment/Plan (1) Closed fracture of left hip: QUALIFIERS: Encounter type: initial encounter Qualified Code(s): S72.002A - Fracture of unspecified part of neck of left femur, initial encounter for closed fracture (2) Fall: PLAN: Day 1 Discharge planning: To be determined by PT/OT eval after hip surgery. 1) left subcapital hip fracture secondary to mechanical fall NSQIP risk calculator completed on admission calculated and above average risk for surgery for this patient. Orthopedic consult obtained, patient to undergo hemiarthroplasty on 09/02/2021. Surgery delayed given history of Xarelto. Perioperative management per orthopedics. PT/OT eval ordered and recreation facility manager consult ordered for discharge planning. #1. General debility, L hip pain s/p mechanical fall w/ subcapital left hip fracture: Plain film noting left subcapital hip fracture. Orthopedic surgery consulted from ED. Will admit to [facility], will continue ADA diet given patient usage of anticoagulation OR will be delayed as last dose administered 08/30/2021 with plan transition to heparin drip this evening but will discuss with orthopedic surgery, monitor I/Os, frequent positioning, fall precautions, pain, anti-emetic regimen. Will need PT/OT following operative intervention. CM consulted for discharge planning. 2) COPD Not in acute exacerbation, currently maintaining oxygen saturations above 90% on room air. Not on any home regimen. As needed albuterol ordered. 3) DM2 Home oral regimen on hold, continuing home insulin as well as Accu-Cheks with sliding scale. 4) HTN Spironolactone ordered, p.o. Lasix twice daily ordered. As needed hydralazine ordered. 5) hyperlipidemia Continue statin therapy. 7) hypothyroidism Continue Synthroid. 8) depression/anxiety Continue home duloxetine. 9) seizure disorder Continue home Topamax. 10) GERD Continue PPI. 12) RLS Continue Mirapex. DVT prophylaxis -SCDs, home Xarelto on hold in anticipation for surgery. Patient seen by Abram Driver PA-C, under the supervision of Dr. Osorio. Time spent on patient care: 10 minutes. Documented by User: Dr. Paola Osorio MD 09/01/21 14:13 Objective Data Lab / Micro Data Result Diagrams: 09/01/21 09:30 09/01/21 01:46 Charges/Coding Addendum Addendum: Patient seen by Abram Driver PA-C under my supervision Patient seen and examined. She had no active complaints and had an uneventful night. Review of systems is otherwise negative. Pain is well controlled. She is due for surgery today. Review of systems is othewise negative. O/E: Const alert, oriented x3 and no apparent distress HEENT head/scalp atraumatic and moist oral mucous membranes Head and Scalp: normocephalic Eyes PERRL, EOMs intact bilaterally and conjunctivae normal Neck no lymphadenopathy, supple and no JVD Resp normal respiratory effort, no retractions and no use of accessory muscles Cardio regular rate, regular rhythm and no JVD GI normal to inspection, nondistended, normoactive bowel sounds and soft to palpation Extremity Extremity Narrative: LLE shortened and externally rotated Skin no rashes or lesions noted, no wounds and skin turgor normal Neuro CN's II-XII intact bilaterally Psych affect normal Assessment and plan #LLE femoral neck fracture due to mechanical fall tripped and fell; imaging showed left subcapital hip fracture orthopedic surgery on consult. For surgery tomorrow on tylenol, oxycodone and IV morphine prn for pain #COPD not in exacerbation. On breathing treatment with bronchodilators #TYpe 2 diabetes mellitus on home insulin. ISS. Accuchecks ACHS on canagliflozin on lantus 40 units daily. #Hypertension: on spironolactone. On lasix. IV hydralazine prn #Hyperlipidemia; on statin #Hypothyroidism: on synthroid #Depression and anxiety: on duloxetine #history of seizure disorder: on topamax #GERD: on PPI #Restless leg syndrome: on mirapex. DVT prophylaxis: on heparin drip. Xarelto on hold. Total time I spent on care of patient today is 17 mins, with Abram Driver PA-C spending 10 mins with patient, making a total of 27 mins on care of patient today. Visit Charges Inpatient E&M: 51068 Subs Hosp L2
[2021-09-01] MEDS: Insulin Lispro 100 UNIT/ML INSULN.PEN SC ×3 (11:18→21:22)
[2021-09-01 11:25] LABS: Bedside Glucose 213 mg/dL (74-106)
[2021-09-01 14:00] VITALS: PULSE 80
--- NOTE | 2021-09-01 14:45 | CASEMGMT ---
TC to [facility] to place referralYenifer in meeting. Faxed requested referral at this time.
[2021-09-01 16:30] VITALS: BP 111/68; PULSE 90; RESP 18; TEMP 36.7; O2SAT 95
[2021-09-01 16:30] LABS: Bedside Glucose 166 mg/dL (74-106)
[2021-09-01 16:40] LABS: Partial Thromboplast Time 54.6 Seconds (24.1-36.2)
[2021-09-01] MEDS: HEPARIN/D5w 25,000 UNITS 25,000 UNITS/250 ML IV.SOLN. 10 UNITS CONT INF (17:37)
[2021-09-01 20:12] VITALS: BP 109/67; PULSE 84; RESP 16; TEMP 37.3; O2SAT 94
[2021-09-01] MEDS: Atorvastatin Calcium 10 MG Tablet PO (21:23)
[2021-09-01 21:41] LABS: Bedside Glucose 178 mg/dL (74-106)
[2021-09-01 22:52] LABS: Partial Thromboplast Time 57.4 Seconds (24.1-36.2)
[2021-09-02] VITALS (11 sets, daily range): BP systolic 93–154; BP diastolic 54–88; PULSE 78–105; RESP 15–18; TEMP 36.4–37.6; O2SAT 92–100; BMI 29.9
[2021-09-02 05:29] LABS: Absolute Lymphocyte Count 1.41 X10^3/uL (0.83-4.51); Absolute Neutrophil Count 5.2 X10^3/uL (2.0-7.7); Basophil# 0.07 X10^3/uL; Basophil% 0.9 % (0-1); Eosinophil# 0.16 X10^3/uL; Eosinophils% 2.1 % (0-5); Hematocrit 41.4 % (37-47); Hemoglobin 13.7 g/dL (12.0-15.0); Lymphocyte # 1.41 X10^3/ul (0.83-4.51); Lymphocyte % 18.7 % (19-41); Mean Corp Hgb Conc 33.1 g/dL (32-36); Mean Corpuscular Hgb 30.6 pg (27.0-32.0); Mean Corpuscular Volume 92.6 fL (81-99); Mean Platelet Vol. 10.3 fl (6.2-12.0); Monocyte# 0.63 X10^3/uL; Monocyte% 8.4 % (0-10); NRBC Flagged by Analyzer 0 % (0-5); Neutrophil # 5.22 X10^3/uL (2.7-7.7); Neutrophil % 69.2 % (47-70); Platelet Count 333 K/mm3 (150-450); RBC Distribution Width CV 13.6 % (11.6-14.6); RBC Distribution Width SD 46.5 fl (35.1-43.9); Red Blood Count 4.47 M/mm3 (4.2-5.4); White Blood Count 7.5 K/mm3 (4.4-11.0)
[2021-09-02 05:47] LABS: Partial Thromboplast Time 47.6 Seconds (24.1-36.2)
--- NOTE | 2021-09-02 06:00 | EKG12_ITS ---
Test Reason : PRE OP Blood Pressure : / mmHG Vent. Rate : 078 BPM Atrial Rate : 078 BPM P-R Int : 184 ms QRS Dur : 086 ms QT Int : 358 ms P-R-T Axes : 026 020 071 degrees QTc Int : 408 ms Normal sinus rhythm Normal ECG When compared with ECG of 31-AUG-2021 13:01, No significant change was found Confirmed by LINA VILLA, ANDREI ([id number]), editorial assistant HILDA EVERETT ([id number]) on 09/03/2021 11:05:51 A M Referred By: JARRED Confirmed By:ABDIRIZAK MILLS MD
[2021-09-02 06:13] LABS: Anion Gap 7 (5-15); BUN 18 mg/dL (7-18); BUN/Creat Ratio 22.5 RATIO (10-20); Calcium,Total 9.6 mg/dL (8.5-10.1); Chloride 97 mmol/L (98-107); EST Glomerular Filtration Rate 74 mL/min (>60); Est Glom Filt Rate - Afr Amer 89 mL/min (>60); Estimated Creatinine Clearance 52.15 ml/min; Glucose 140 mg/dL (74-106); Potassium 3.9 mmol/L (3.5-5.1); Sodium Level 134 mmol/L (136-145)
[2021-09-02 06:50] LABS: Bedside Glucose 150 mg/dL (74-106)
[2021-09-02] MEDS: 0.9% Normal Saline 1,000 ML 75 ML IV ×2 (08:48→22:10)
[2021-09-02] MEDS: Acetaminophen 325 MG Tablet 650 MG PO (08:48)
[2021-09-02] MEDS: Pramipexole Di-HCl 1 MG Tablet PO ×2 (08:54→22:06)
[2021-09-02] MEDS: Pantoprazole Sodium 20 MG Tablet PO (08:54)
--- NOTE | 2021-09-02 09:14 | PN.HOSP_ITS ---
Subjective Subjective Patient seen and examined. Patient lying in bed no distress noted. Patient does report pain and has requested pain medication from nursing. Going for surgery at approximately 430 this afternoon. Heparin is on hold. Objective Data Objective Data Vital Signs: Vital Signs Temp Pulse Resp BP Pulse Ox 97.7 F L 78 16 93/66 100 09/02/21 08:09 09/02/21 08:09 09/02/21 08:09 09/02/21 08:09 09/02/21 08:09 Oxygen Delivery Method Room Air Weight: 173 lb 4.533 oz Body Mass Index (BMI) 28.8 Intake & Output: Intake and Output for Last 24 Hours 08/31/21 09/01/21 09/02/21 23:59 23:59 23:59 Intake Total 750 / 750 1150.68 / 1150.68 50 / 50 Output Total 1750 / 2700 1825 / 1825 Balance 750 / 450 -599.32 / -1549.32 -1775 / -1775 Lab / Micro Data Result Diagrams: 09/02/21 04:19 09/02/21 04:19 Labs: Laboratory Results - last 24 hr 09/01/21 09:30: WBC 7.6, RBC 4.11 L, Hgb 12.6, Hct 38.1, MCV 92.7, MCH 30.7, MC HC 33.1, RDW Std Deviation 46.4 H, RDW Coeff of Basilio 13.6, Plt Count 293, MPV 9.3, Immature Gran % (Auto) 0.500, Neut % (Auto) 70.8 H, Lymph % (Auto) 17.8 L, [place] % (Auto) 7.7, Eos % (Auto) 2.4, Baso % (Auto) 0.8, Absolute Neuts (auto) 5.4, Absolute Lymphs (auto) 1.36, Nucleated RBC % 0 09/01/21 09:30: APTT 55.7 H 09/01/21 11:18: POC Glucose 213 H 09/01/21 15:52: APTT 54.6 H 09/01/21 16:23: POC Glucose 166 H 09/01/21 21:21: POC Glucose 178 H 09/01/21 22:15: APTT 57.4 H 09/02/21 04:19: WBC 7.5, RBC 4.47, Hgb 13.7, Hct 41.4, MCV 92.6, MCH 30.6, MCHC 33.1, RDW Std Deviation 46.5 H, RDW Coeff of Basilio 13.6, Plt Count 333, MPV 10.3, Immature Gran % (Auto) 0.700, Neut % (Auto) 69.2, Lymph % (Auto) 18.7 L, [place] % (Auto) 8.4, Eos % (Auto) 2.1, Baso % (Auto) 0.9, Absolute Neuts (auto) 5.2, Absolute Lymphs (auto) 1.41, Nucleated RBC % 0 09/02/21 04:19: Sodium 134 L, Potassium 3.9, Chloride 97 L, Carbon Dioxide 30.0, Anion Gap 7, BUN 18, Creatinine 0.80, Estim Creat Clear Calc 52.15, Est GFR (MDRD) Af Amer 89, Est GFR (MDRD) Non-Af 74, BUN/Creatinine Ratio 22.5 H, Glucose 140 H, Calcium 9.6 09/02/21 04:19: APTT 47.6 H 09/02/21 06:26: POC Glucose 150 H Physical Exam Const alert, oriented x3 and no apparent distress HEENT head/scalp atraumatic and moist oral mucous membranes Head and Scalp: normocephalic Eyes conjunctivae normal and no scleral icterus Neck full ROM and supple General: trachea midline Resp normal respiratory effort, normal air movement and clear to auscultation bilaterally Effort and Inspection: able to speak in complete sentences and symmetric chest movement Cardio regular rate, regular rhythm, S1 normal heart sound and S2 normal heart sound GI normal to inspection, nondistended, normoactive bowel sounds, soft to palpation and non-tender Extremity Peripheral Pulses: Yes pulses 2+ throughout Left Lower Extremity: hip joint palpation (Tender), ROM (limited) and ne urovascular exam (intact) Skin no rashes or lesions noted Neuro oriented x3, moves all extremities, no focal motor deficits and no sensory deficits noted Sensorium / Orientation: awake and alert Speech: speech normal Psych affect normal Assessment & Plan Assessment/Plan (1) Closed fracture of left hip: QUALIFIERS: Encounter type: initial encounter Qualified Code(s): S72.002A - Fracture of unspecified part of neck of left femur, initial encounter for closed fracture (2) Fall: QUALIFIERS: Encounter type: initial encounter Qualified Code(s): W19.XXXA - Unspecified fall, initial encounter PLAN: 1. Closed fracture of left hip following a mechanical fall at home -Continue pain medication regimen as this has been effective at controlling patient's pain -Heparin drip on hold, surgery planned for 4:30 PM -PT and OT ordered for eval postop 2. COPD -continue as needed albuterol nebulizer treatments 3. Diabetes mellitus type 2 -Continue ACH S blood sugar checks with sliding scale insulin 4. Hypertension -Continue spironolactone and Lasix -As needed hydralazine ordered -Patient slightly hypotensive this a.m., normal saline 75 mL/h ordered -Vital signs per protocol 5. Hyperlipidemia -Continue statin 6. Hypothyroidism -Continue Synthroid 7. Depression and anxiety -continue duloxetine 8. Seizure disorder -Continue Topamax 9. GERD -Continue PPI 10. Restless leg syndrome -continue Mirapex DVT prophylaxis-SCDs, Xarelto on hold for surgery This patient was seen by Olive Warren NP-C under the supervision of Dr. Osorio. 10 minutes spent in clinical coordination of patient's plan of care.
[2021-09-02 11:00] LABS: Hemoglobin A1c 7.1 % (3.8-5.6)
--- NOTE | 2021-09-02 11:01 | CASEMGMT ---
Social Work SW placed call to Yenifer at [facility]. They did not receive the referral that was sent yesterday. [facility] does have beds available. Pt with surgery at 4:30 today. Referral emailed to Yenifer at [facility]. Will send updated clinicals tomorrow once pt receives therapy. [facility], pending acceptance and precCASI Varela
[2021-09-02] MEDS: Insulin Lispro 100 UNIT/ML INSULN.PEN SC ×2 (11:27→22:10)
[2021-09-02 11:30] LABS: Bedside Glucose 336 mg/dL (74-106)
[2021-09-02 11:31] LABS: Base Excess -1 mmol/L (-2 to +2); Bicarbonate 23.4 mmol/L (22-26); Blood Gas Specimen Type ART; FI02 21; PO2 67 mmHG (75-100); SO2 94 % (95-99); Total Carbon Dioxide 25 mmol/L; pCO2 34.2 mmHg (35-45); pH 7.44 (7.35-7.45)
--- NOTE | 2021-09-02 11:56 | NURSING ---
Dr Osorio at bedside with pt and orders to hold certain medications due to pt having surgery today. See MAR for further documentation
--- NOTE | 2021-09-02 13:57 | NURSING ---
Report given to Blanca RN nurse to take over care of pt
[2021-09-02 15:56] LABS: Bedside Glucose 106 mg/dL (74-106)
--- NOTE | 2021-09-02 16:30 | HIP_PTH ---
PATIENT: DUNG MEEK LOC: [facility]3 U#:[id number] AGE/SX: 76/F ROOM: [facility] [place]31/[address]: Dr. Chandana Atkins DO : 1945 BED: 1 DIS: 09/06/2021 SPEC #: [id number] RECD: 09/03/21 06:55 STATUS: AYDEN DARLENE #: [id number] JEREMIAH: 09/02/21 16:[address]: Hayden Abraham DEPT: SURGICAL PATHOLOGY RECD BY: Filiberto Tesfaye ENTERED: 09/03/21 09:03 SP TYPE: TOTAL HIP OTHR DR: MD Dr. Paola Iglesias MD Dr. Scott Hannan, MD Tissues: Hip, NOS Procedures: Decalcification bone/plaque Surgery Specimen Level IV HEADER OPERATION: Total hip anterior approach PRE-OP DIAGNOSIS: Closed fracture of left hip TISSUE SUBMITTED: Left hip bone and tissue MICROSCOPIC DIAGNOSIS Left hip bone and tissue, total hip replacement/resection: Femoral head and pieces of bone reaming with focal area of hemorrhage, clinically closed fracture of left hip. MALINA:pk 09/08/2021 MICROSCOPIC DESCRIPTION Slides are reviewed. GROSS DESCRIPTION Received is one container labeled with the patient's name and designated left hip bone and tissue. The specimen consists of a hanson femoral head measuring 4.5 x 4.5 x 4.5 cm. The articular surface is focally irregular and granular and with focal bone erosion. The opposite surface is hemorrhagic consistent with fracture site. Also present free in the specimen container are multiple irregular fragments of bone reamings aggregating to 7.5 x 7 x 1 cm. [employer] sections are submitted in three cassettes after decalcification as follows: 1 ? bone reamings, 2 & 3 - femoral head. / AM:pk 09/03/2021 TC:5 CPT: 56977, 22622
--- NOTE | 2021-09-02 17:00 | RAD_ITS ---
EXAM: XR LEFT HIP WITH PELVIS WHEN PERFORMED, 1 VIEW CLINICAL INDICATION: FX TECHNIQUE: Frontal view of the left hip with pelvis when performed. This report was created using [employer] report generation technology. COMPARISON: None. FINDINGS: See Impression. RAD/Hip 1 view with Pelvis IMPRESSION: 1. Intraoperative images submitted showing placement of a left total hip arthroplasty. 2. No expected postsurgical findings. 3. ease refer to surgical report. 4. No definite radiopaque foreign body. Electronically Signed: Mark Belle MD at 0:23 EDT ,
[2021-09-02] MEDS: Cefazolin 2 GM in 0.9% Normal Saline 100 ML IV (17:30)
[2021-09-02] MEDS: TXA 1000mg in NS100 100ml (IVPB at Incision) 660 MG IV (18:30)
[2021-09-02] MEDS: TXA 1000mg in NS100 100ml (IVPB at Closure) 660 MG IV (18:30)
--- NOTE | 2021-09-02 18:52 | RAD_ITS ---
STUDY: X-RAY - PELVIS AND LEFT HIP REASON FOR EXAM: Female, 76 years old. Post Op -- AP both hips on single stephen/lateral of op hip PACU TECHNIQUE: 2 views of the pelvis and hip. COMPARISON: None. FINDINGS: Bilateral prostheses are noted in anatomic alignment and position. 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
--- NOTE | 2021-09-02 18:53 | PCM.OPRPT ---
Report of Operation Date of Procedure: 09/02/21 Pre-Operative Diagnosis: Left hip primary osteoarthritis Left acute subcapital femoral neck displaced fracture Post-Operative Diagnosis: Left hip primary osteoarthritis Left acute subcapital femoral neck displaced fracture Surgery/Procedure Performed:: Left direct anterior hip replacement Description of Surgical Findings:: Stable hip with equal leg lengths Severe stage IV osteoarthritis Surgeon: Hayden Abraham supply teacher: Varun Jiang Type of Anesthesia: General Anesthesiologist: Safia Fry Special Medications: 2 g Ancef, 2 g TXA lavage, joint cocktail (5 mg Duramorph, 30 mL of 0.5% Ropivicaine, 1000 units of epinephrine, 30 mg of Toradol) Specimen's removed: Bony cuts Estimated Blood Loss (mL): 200 Fluids Replaced: 600 mL crystalloid Description of Procedure: Components used: 1. Insignia high offset Melquiades femoral stem size 4 2. [place] trident 2 acetabular shell size 50 mm 3. Melquiades X3 polyethylene D 4. [place] Biolox delta 36mm, -2.5mm femoral head Brief history operative indications: 76 yo F who failed conservative measures for their hip osteoarthritis. X-rays were consistent with osteoarthritis including joint space narrowing, osteophyte formation and subchondral cysts. Total hip replacement was discussed with the patient with risks and benefits including but not limited to blood loss, DVTs, PEs, neurovascular damage, dislocation, general risks of anesthesia including loss of life. Patient demonstrated an understanding medical clearance is obtained the patient was consented for surgery. Procedure: On the date of procedure the patient's L hip was marked in the preoperative area. Patient was then taken back to the operating room where anesthesia assumed control of the C-spine and airway and administered anesthetic. Patient was transferred to the operating table and placed in the supine position. The hips were placed at the break of the bed and a sacral bump was placed. L The lower extremity was then prepped out in a sterile fashion using chlorhexidine while the surgeon scrubbed. The PA was vital in the positioning of the patient. Upon reentering the room the left lower extremity was draped in the standard orthopedic fashion and the incision was marked. A timeout was called and everyone agreed upon the side, the site, the procedure be performed, antibody given, and patient's identity. At this time incision was made through skin, subcutaneous tissue, and fat down to fascia. The fascia was then incised and the TFL was retracted laterally. A retractor was placed on the lateral border of the femoral neck. Attention was directed to the inferior portion of the approach and all crossing vessels were identified and appropriately coagulated. A retractor was then placed on the medial portion of the femoral neck. The anterior capsule was then cleared of all soft tissue and then H shaped capsulotomy was made. The retractors were then placed inside the capsule. The femoral neck was identified and a cleanup cut was made. At this time a power corkscrew was used to remove the femoral head. Attention was then turned toward the acetabulum where the soft tissues were appropriately retracted and the acetabulum was sequentially reamed to 50 mm. A 50 mm cup was then selected and impacted into place. Acetabular liner was impacted into place and locking mechanism was verified. The position of the acetabular cup was then verified under live fluoroscopy. Attention was then turned to the femur. Soft tissue releases on the medial and lateral femoral neck were appropriately done, the leg was externally rotated and lateralized. A Mccabe retractor was placed medially and proximally to the greater trochanter this allowed appropriate visualization and exposure of the femoral canal. Rongeour was then used to remove excess lateral bone. A canal finder and entry broach were used to open the proximal canal. Once we verified we were down the femoral canal we subsequently broached up to a size 4 femur. The appropriate neck was placed in the previously selected head was trialed with a -2.5 mm neck. Traction was pulled and the hip was reduced with internal rotation. Once it was appropriately reduced and stability was checked. There was minimal shuck, equal leg lengths and appropriate stability with hyperextension and external rotation as well as with 90? flexion and internal rotation. Fluoroscopy was then also used to verify the position of the components and leg lengths using the contralateral side for comparison. The trial components were then dislocated the proximal femur was again exposed and the components were removed from the wound. The final components were verified and opened. The wound was copiously irrigated out with normal saline. The acetabulum was checked for any residual debris. The final components were placed and impacted. Traction and internal rotation were again used to reduce the hip. After adequate reduction the hip remained stable with appropriate leg lengths. The final components were once again checked with live fluoroscopy and were found to be satisfactory. The wound was then copiously irrigated with normal saline once more, and hemostasis was obtained. Closure was then done using #1 Vicryl runner to close the fascia. A 2-0 vicryl interuppted sutures were used to close the subcutaneous skin. A 3-0 Monocryl and Steri-Strips were used for final skin closure. A Silverlon dressing was placed. Patient was awakened by anesthesia and transferred to the [place]. Patient was then transferred to the PACU for recovery. During the course of the procedure the physician transportation job titles (PE) played a vital role. Their intimate knowledge of my steps in the procedure aided in safe and expedient completion of the procedure. The PE played a vital rolls in positioning particularly in obtaining the appropriate positioning of the sacral bump. The PE was also vital in the retraction of soft tissues during the exposure and especially the femoral work as this is a vital part of the procedure to prevent complications and fractures. The PE was also vital and protecting soft tissues during times of bony cuts and reaming. He also played a vital role in closure with my direct supervision. The PE was also important during reduction and dislocation of the joint and trials intraoperatively. Postoperative plan: Patient will get 24 hours postop antibiotics. Patient will get in-house physical therapy and will be weight-bear as tolerated. Patient will follow up in office in 2 weeks for a wound check and x-rays. For DVT prophylaxis patient will resume Xarelto home dose tomorrow. Complications No intraoperative complications Admit VTE Documentation VTE Present on Admission: No VTE Mechan Device Prophylaxis: SCD's and Thigh High CATHERINE Hose VTE Pharm Prophylaxis ordered?: Yes
[2021-09-02 19:31] LABS: Bedside Glucose 134 mg/dL (74-106)
[2021-09-02] MEDS: Senna/Docusate Sodium 1 Tablet 2 TABLET PO (22:04)
[2021-09-02] MEDS: Topiramate 50 MG Tablet PO (22:05)
[2021-09-02] MEDS: Acetaminophen 500 MG Tablet 1000 MG PO (22:05)
[2021-09-02] MEDS: Atorvastatin Calcium 10 MG Tablet PO (22:07)
[2021-09-02] MEDS: Furosemide 40 MG Tablet PO (22:12)
[2021-09-02] MEDS: Lubiprostone 24 MCG Capsule PO (22:13)
[2021-09-03 00:02] VITALS: BP 119/61; PULSE 81; RESP 18; TEMP 36.4; O2SAT 96
[2021-09-03 00:36] LABS: Bedside Glucose 163 mg/dL (74-106)
[2021-09-03] MEDS: Cefazolin 1 GM/50 ML BAG IV ×2 (00:40→10:03)
[2021-09-03] MEDS: 0.9% Saline Lock 10 ML Syringe IV (00:41)
[2021-09-03 03:32] VITALS: BP 109/60; PULSE 80; RESP 18; TEMP 36.7; O2SAT 95
[2021-09-03 05:20] LABS: Absolute Lymphocyte Count 0.81 X10^3/uL (0.83-4.51); Absolute Neutrophil Count 7.4 X10^3/uL (2.0-7.7); Basophil# 0.02 X10^3/uL; Basophil% 0.2 % (0-1); Eosinophil# 0.05 X10^3/uL; Eosinophils% 0.5 % (0-5); Hematocrit 35.5 % (37-47); Hemoglobin 11.7 g/dL (12.0-15.0); Lymphocyte # 0.81 X10^3/ul (0.83-4.51); Lymphocyte % 8.9 % (19-41); Mean Corpuscular Hgb 31.1 pg (27.0-32.0); Mean Corpuscular Volume 94.4 fL (81-99); Mean Platelet Vol. 9.6 fl (6.2-12.0); Monocyte# 0.79 X10^3/uL; Monocyte% 8.7 % (0-10); NRBC Flagged by Analyzer 0 % (0-5); Neutrophil # 7.38 X10^3/uL (2.7-7.7); Neutrophil % 80.9 % (47-70); Platelet Count 277 K/mm3 (150-450); RBC Distribution Width CV 13.6 % (11.6-14.6); Red Blood Count 3.76 M/mm3 (4.2-5.4); White Blood Count 9.1 K/mm3 (4.4-11.0)
[2021-09-03] MEDS: Acetaminophen 500 MG Tablet 1000 MG PO ×3 (05:33→22:18)
[2021-09-03] MEDS: Levothyroxine 100 MCG Tablet PO (05:33)
[2021-09-03 05:47] LABS: Anion Gap 7 (5-15); BUN 17 mg/dL (7-18); BUN/Creat Ratio 20.4 RATIO (10-20); Calcium,Total 8.5 mg/dL (8.5-10.1); Chloride 100 mmol/L (98-107); Creatinine, Serum 0.83 mg/dL (0.55-1.02); EST Glomerular Filtration Rate 70 mL/min (>60); Est Glom Filt Rate - Afr Amer 85 mL/min (>60); Estimated Creatinine Clearance 50.27 ml/min; Glucose 159 mg/dL (74-106); Potassium 3.9 mmol/L (3.5-5.1); Sodium Level 134 mmol/L (136-145)
--- NOTE | 2021-09-03 06:52 | PN.ORTHO_ITS ---
Subjective Subjective The patient was sitting in bed upon examination. Patient denies any chest pain, shortness of breath, dizziness, lightheadedness, nausea or vomiting, or calf pain. Pain is controlled on medications. No adverse overnight events. Patient states the pain is been controlled on medications for her left hip. She has no complaints this morning. 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 She will resume the Xarelto today. Patient has history of falls with Parkinson's. She reports that she utilizes a walker and cane. I did recommend she utilize walker postoperatively as this is more supportive. Case management is currently involved and plan is [facility] pending acceptance and pre-[facility]. Objective Data Objective Data Vital Signs: Vital Signs Temp Pulse Resp BP Pulse Ox 98.1 F 80 18 109/60 95 09/03/21 03:32 09/03/21 03:32 09/03/21 03:32 09/03/21 03:32 09/03/21 03:32 Oxygen Delivery Method Room Air Weight: 81.7 kg Body Mass Index (BMI) 29.9 Intake & Output: Intake and Output for Last 24 Hours 09/01/21 09/02/21 09/03/21 23:59 23:59 23:59 Intake Total 1150.68 / 1150.68 2370 / 2370 350 / 350 Output Total 1750 / 2700 2975 / 2975 650 / 650 Balance -599.32 / -1549.32 -605 / -605 -300 / -300 Lab / Micro Data Result Diagrams: 09/03/21 04:36 09/03/21 04:36 Labs: Laboratory Results - last 24 hr 09/02/21 04:19: Hemoglobin A1c 7.1 H 09/02/21 11:14: POC Glucose 336 H 09/02/21 11:25: Specimen Type ART, pH 7.44, Bicarbonate Actual 23.4, Total CO2 25, Base Excess -1, O2 Saturation 94 L, O2 % 21, ABG pCO2 34.2 L, ABG pO2 67 L 09/02/21 15:47: POC Glucose 106 09/02/21 19:28: POC Glucose 134 H 09/02/21 22:02: POC Glucose 163 H 09/03/21 04:36: WBC 9.1, RBC 3.76 L, Hgb 11.7 L, Hct 35.5 L, MCV 94.4, MCH 31.1, MCHC 33.0, RDW Std Deviation 47.0 H, RDW Coeff of Basilio 13.6, Plt Count 277, MPV 9.6, Immature Gran % (Auto) 0.800, Neut % (Auto) 80.9 H, Lymph % (Auto) 8.9 L, Hitchcock % (Auto) 8.7, Eos % (Auto) 0.5, Baso % (Auto) 0.2, Absolute Neuts (auto) 7.4, Absolute Lymphs (auto) 0.81 L, Nucleated RBC % 0 09/03/21 04:36: Sodium 134 L, Potassium 3.9, Chloride 100, Carbon Dioxide 27.0, Anion Gap 7, BUN 17, Creatinine 0.83, Estim Creat Clear Calc 50.27, Est GFR (MDRD) Af Amer 85, Est GFR (MDRD) Non-Af 70, BUN/Creatinine Ratio 20.4 H, Glucose 159 H, Calcium 8.5 ABG Data ABG results: ABG 09/02/21 11:25 Specimen Type ART pH 7.44 Bicarbonate Actual 23.4 Total CO2 25 Base Excess -1 O2 Saturation 94 L O2 % 21 ABG pCO2 34.2 L ABG pO2 67 L Radiography Diagnostic Testing: Radiology Impression Hip/Pelvis X-Ray 09/02/21 17:00 IMPRESSION: 1. Intraoperative images submitted showing placement of a left total hip arthroplasty. 2. No expected postsurgical findings. 3. ease refer to surgical report. 4. No definite radiopaque foreign body. Electronically Signed: Mark Belle MD at 0:23 EDT , Hip X-Ray 09/02/21 18:52 IMPRESSION: Stable appearance to bilateral hip prostheses Electronically Signed: Yang Lopez MD at 20:55 EDT , Physical Exam Narrative Vital signs stable and afebrile. Left thigh is soft and supple Patient currently wearing bilateral CATHERINE hose and SCDs Patient is able to plantarflex and dorsiflex actively. Sensation is intact to light touch to saphenous, sural, superficial and deep peroneal, and tibial distribution. Dressing is clean dry and intact. Negative Homans bilaterally, negative signs and symptoms of DVT. Const alert, oriented x3 and no apparent distress Assessment & Plan Assessment/Plan (1) S/P total left hip arthroplasty: (2) Closed fracture of left hip: QUALIFIERS: Encounter type: initial encounter Qualified Code(s): S72.002A - Fracture of unspecified part of neck of left femur, initial encounter for closed fracture PLAN: 1. S/P left direct anterior total hip arthroplasty secondary to fracture POD #1 2. Continue Pain Medications: Tylenol and oxycodone as needed for pain 3. DVT Prophylaxis: Patient will be placed back on her Xarelto today. 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 4. PT/OT: Weightbearing as tolerated with walker. I did recommend to the patient I would like to see her use the walker postoperatively as this is more stable than a cane. She has history of falls secondary to her Parkinson's. She did voice understanding agreement. 5. H & H: 11.7/35.5, asymptomatic. Postoperative anemia secondary to acute blood loss from surgery without any intra operative complications. 6. Continue postoperative medical management per medicine 7. Encouraged Incentive Spirometry 8. Disposition: Okay for discharge when medically stable and acceptance and pre-CERT for [facility]. Patient is weightbearing as tolerated with walker. The Mepilex dressing will stay on for 5 days postoperatively. We do not want any tape placed on the skin after Mepilex dressing has been removed. Patient will continue with pain medications above including Tylenol primarily with occasional oxycodone as needed for pain. She will resume her Xarelto for DVT prophylaxis. Patient had direct anterior approach and only restriction is no external rotation combined with extension of the left hip such as getting in and out of the bed. I discussed with the patient postoperative symptoms that can occur with direct anterior approach which include soreness in the thigh that can last 4 to 6 weeks postoperatively. We also discussed common to have swelling in the left thigh. Signs and symptoms of infection were discussed including severe [id number] pain. Hot to touch hip, drainage, running fevers over 101 ?F. Patient will require 2-week postoperative follow-up visit with Dr. Hayden Abraham for x-rays of the left hip and incision check. This will need to be scheduled today prior to discharge to residential facility. I would recommend continued follow-up with primary care physician once she has been discharged from residential facility. If acceptance and pre-CERT to [facility] occurred today we are okay with discharge from orthopedic standpoint as long as patient is medically stable. I have reviewed the [place] Automated Rx Reporting System (OARRS) report for this patient for refill pattern and other prescriber involvement as part of the appropriate surveillance for the provision of acute and chronic controlled medications. The report was requested and reviewed on the date of this entry and was considered in the prescribing process. This dictation was created using voice recognition software. Phonetic and/or grammatical errors may exist.
[2021-09-03 07:05] LABS: Bedside Glucose 130 mg/dL (74-106)
[2021-09-03 08:03] VITALS: BP 110/67; PULSE 75; RESP 18; TEMP 36.8; O2SAT 98
[2021-09-03] MEDS: Ensure Surgery 237 ML LIQUID PO ×3 (08:09→16:20)
[2021-09-03] MEDS: Lubiprostone 24 MCG Capsule PO ×2 (08:11→16:21)
[2021-09-03] MEDS: Topiramate 50 MG Tablet PO ×2 (10:03→22:21)
[2021-09-03] MEDS: Senna/Docusate Sodium 1 Tablet 2 TABLET PO ×2 (10:03→22:21)
[2021-09-03] MEDS: Pantoprazole Sodium 20 MG Tablet PO (10:04)
[2021-09-03] MEDS: Insulin Glargine-YFGN 100 UNIT/ML Pen 40 UNIT SC (10:04)
[2021-09-03] MEDS: Pramipexole Di-HCl 1 MG Tablet PO ×2 (10:04→22:18)
[2021-09-03] MEDS: DULoxetine Hcl 60 MG Capsule PO (10:05)
--- NOTE | 2021-09-03 10:23 | PN.HOSP_ITS ---
Documented by User: YOAN LewisC 09/03/21 10:26 Subjective Subjective Patient seen and examined. Patient states that she is feeling improved after her surgery and her pain is considerably decreased and well controlled with pain medication. Patient to see PT and OT today. Objective Data Objective Data Vital Signs: Vital Signs Temp Pulse Resp BP Pulse Ox 98.2 F 75 18 110/67 98 09/03/21 08:03 09/03/21 08:03 09/03/21 08:03 09/03/21 08:03 09/03/21 08:03 Oxygen Delivery Method CPAP Weight: 178 lb 9.191 oz Body Mass Index (BMI) 29.9 Intake & Output: Intake and Output for Last 24 Hours 09/01/21 09/02/21 09/03/21 23:59 23:59 23:59 Intake Total 1150.68 / 1150.68 2370 / 2370 350 / 350 Output Total 1750 / 2700 2975 / 2975 650 / 650 Balance -599.32 / -1549.32 -605 / -605 -300 / -300 Lab / Micro Data Result Diagrams: 09/03/21 04:36 09/03/21 04:36 Labs: Laboratory Results - last 24 hr 09/02/21 04:19: Hemoglobin A1c 7.1 H 09/02/21 11:14: POC Glucose 336 H 09/02/21 15:47: POC Glucose 106 09/02/21 19:28: POC Glucose 134 H 09/02/21 22:02: POC Glucose 163 H 09/03/21 04:36: WBC 9.1, RBC 3.76 L, Hgb 11.7 L, Hct 35.5 L, MCV 94.4, MCH 31.1, MCHC 33.0, RDW Std Deviation 47.0 H, RDW Coeff of Basilio 13.6, Plt Count 277, MPV 9.6, Immature Gran % (Auto) 0.800, Neut % (Auto) 80.9 H, Lymph % (Auto) 8.9 L, [place] % (Auto) 8.7, Eos % (Auto) 0.5, Baso % (Auto) 0.2, Absolute Neuts (auto) 7.4, Absolute Lymphs (auto) 0.81 L, Nucleated RBC % 0 09/03/21 04:36: Sodium 134 L, Potassium 3.9, Chloride 100, Carbon Dioxide 27.0, Anion Gap 7, BUN 17, Creatinine 0.83, Estim Creat Clear Calc 50.27, Est GFR (MDRD) Af Amer 85, Est GFR (MDRD) Non-Af 70, BUN/Creatinine Ratio 20.4 H, Glucose 159 H, Calcium 8.5 09/03/21 06:38: POC Glucose 130 H ABG Data ABG results: ABG 09/02/21 11:25 Specimen Type ART pH 7.44 Bicarbonate Actual 23.4 Total CO2 25 Base Excess -1 O2 Saturation 94 L O2 % 21 ABG pCO2 34.2 L ABG pO2 67 L Radiography Diagnostic Testing: Radiology Impression Hip/Pelvis X-Ray 09/02/21 17:00 IMPRESSION: 1. Intraoperative images submitted showing placement of a left total hip arthroplasty. 2. No expected postsurgical findings. 3. ease refer to surgical report. 4. No definite radiopaque foreign body. Electronically Signed: Mark Belle MD at 0:23 EDT , Hip X-Ray 09/02/21 18:52 IMPRESSION: Stable appearance to bilateral hip prostheses Electronically Signed: Yang Lopez MD at 20:55 EDT , Physical Exam Const alert, oriented x3 and no apparent distress HEENT head/scalp atraumatic and moist oral mucous membranes Eyes conjunctivae normal and no scleral icterus Neck full ROM, no lymphadenopathy and supple General: trachea midline Resp normal respiratory effort, normal air movement and clear to auscultation bilaterally Effort and Inspection: able to speak in complete sentences and symmetric chest movement Cardio regular rate, regular rhythm, S1 normal heart sound and S2 normal heart sound GI normal to inspection, nondistended, normoactive bowel sounds, soft to palpation and non-tender Extremity normal capillary refill and no clubbing, cyanosis or edema Left Lower Extremity: hip joint palpation (Tender), ROM (limited) and neurovascular exam (intact) Skin no rashes or lesions noted, no wounds and skin turgor normal Neuro oriented x3, no focal motor deficits and no sensory deficits noted Sensorium / Orientation: awake and alert Speech: speech normal Psych affect normal Assessment & Plan Assessment/Plan (1) Closed fracture of left hip: QUALIFIERS: Encounter type: initial encounter Qualified Code(s): S72.002A - Fracture of unspecified part of neck of left femur, initial encounter for closed fracture (2) Fall: QUALIFIERS: Encounter type: initial encounter Qualified Code(s): W19.XXXA - Unspecified fall, initial encounter PLAN: 1. Closed fracture of left hip following a mechanical fall at home -Continue pain medication regimen as this has been effective at controlling p atient's pain -Surgery completed on 09/02/2021 -PT and OT ordered for eval postop 2. COPD -continue as needed albuterol nebulizer treatments 3. Diabetes mellitus type 2 -Continue ACH S blood sugar checks with sliding scale insulin 4. Hypertension -Continue spironolactone and Lasix -As needed hydralazine ordered -Patient slightly hypotensive this a.m., normal saline 75 mL/h ordered -Vital signs per protocol 5. Hyperlipidemia -Continue statin 6. Hypothyroidism -Continue Synthroid 7. Depression and anxiety -continue duloxetine 8. Seizure disorder -Continue Topamax 9. GERD -Continue PPI 10. Restless leg syndrome -continue Mirapex DC planning-patient planning to go to [facility] for rehab DVT prophylaxis-SCDs, Xarelto on hold for surgery This patient was seen by Olive Warren NP-C under the supervision of Dr. Osorio. 12 minutes spent in clinical coordination of patient's plan of care. Documented by User: Dr. Paola Osorio MD 09/03/21 15:21 Objective Data Lab / Micro Data Result Diagrams: 09/03/21 04:36 09/03/21 04:36 Charges/Coding Addendum Addendum: Patient seen by Olive Warren MICROFILM TECHNICIAN-C under my supervision Patient seen and examined. She has no complaints today. Pain is well controlled. Today is POD 1 of left anterior hip replacement. O/E: Const alert, oriented x3 and no apparent distress HEENT head/scalp atraumatic and moist oral mucous membranes Head and Scalp: normocephalic Eyes PERRL, EOMs intact bilaterally and conjunctivae normal Neck no lymphadenopathy, supple and no JVD Resp normal respiratory effort, no retractions and no use of accessory muscles Cardio regular rate, regular rhythm and no JVD GI normal to inspection, nondistended, normoactive bowel sounds and soft to palpation Extremity Extremity Narrative: LLE has intact dressing n place. Skin no rashes or lesions noted, no wounds and skin turgor normal Neuro CN's II-XII intact bilaterally Psych affect normal Assessment and plan #LLE femoral neck fracture due to mechanical fall * s/p left anterior hip replacement * today is POD 1 * on PO tylenol, PO oxycodone and IV morphiine prn for pain * PT/OT on board * fall precautions * #COPD * not in exacerbation. * On breathing treatment with bronchodilators * #TYpe 2 diabetes mellitus * on home insulin. ISS. Accuchecks ACHS * on canagliflozin * on lantus 40 units daily. #Hypertension: on spironolactone. On lasix. BP running a bit low this morning, so BP meds held. Hydrate gently with iVF. #Hyperlipidemia; on statin #Hypothyroidism: on synthroid #Depression and anxiety: on duloxetine #history of seizure disorder: on topamax #GERD: on PPI #Restless leg syndrome: on mirapex. DVT prophylaxis: will resume xarelto. Total time I spent on care of patient today is 17 mins, with Olive Warren spending 12 mins, making a total of 29 mins. Visit Charges Inpatient E&M: [id number] Subs Hosp L2
[2021-09-03 12:05] LABS: Bedside Glucose 274 mg/dL (74-106)
[2021-09-03] MEDS: Insulin Lispro 100 UNIT/ML INSULN.PEN SC ×3 (12:44→22:17)
--- NOTE | 2021-09-03 13:29 | CASEMGMT ---
Addendum entered by Stephenie Em 09/03/21 14:03: Return call from [facility] and they are able to accept pt. Precert to be started at this time. Pt notified and VM left for pt spouse. Plan: [facility], pending [facility] Original Note: Social Work SW met with pt and discussed discharge plan. Pt confirms plan continues to be to discharge to [facility] for rehabilitation. Therapy evaluations and updated physician notes emailed to [facility]. Phone call to [facility] who states admission coordinator is out for the day. SW informed that referral was sent yesterday and updates at this time. Requesting that someone review case, make determination and then start precert. [facility] requested return call today. [facility] is understanding and states someone will call back with determination. Plan: [facility], pending acceptance and [facility]
[2021-09-03 13:47] VITALS: O2SAT 94
[2021-09-03 14:42] VITALS: BP 99/70; PULSE 70; RESP 18; TEMP 37; O2SAT 97
[2021-09-03] MEDS: Rivaroxaban 20 MG Tablet PO (16:21)
[2021-09-03 17:21] LABS: Bedside Glucose 233 mg/dL (74-106)
[2021-09-03 21:29] VITALS: BP 108/66; PULSE 96; RESP 20; TEMP 37.2; O2SAT 94
[2021-09-03] MEDS: Atorvastatin Calcium 10 MG Tablet PO (22:18)
[2021-09-03 23:00] LABS: Bedside Glucose 259 mg/dL (74-106)
[2021-09-04] MEDS: Insulin Lispro 100 UNIT/ML INSULN.PEN SC ×4 (06:26→21:06)
[2021-09-04] MEDS: Levothyroxine 100 MCG Tablet PO (06:27)
[2021-09-04] MEDS: Acetaminophen 500 MG Tablet 1000 MG PO ×3 (06:27→21:06)
[2021-09-04 06:36] LABS: Bedside Glucose 172 mg/dL (74-106)
--- NOTE | 2021-09-04 07:52 | PN.ORTHO_ITS ---
Subjective Subjective The patient was resting in bed upon examination. Patient denies any chest pain, shortness of breath, dizziness, lightheadedness, nausea or vomiting, or calf pain. Pain is controlled on medications. No adverse overnight events. Patient states the pain is well controlled. Plan is for patient to go to [facility] once pre-CERT has been obtained. Patient has tolerated therapy but they are recommending additional therapy. Objective Data Objective Data Vital Signs: Vital Signs Temp Pulse Resp BP Pulse Ox 98.9 F 96 20 H 108/66 94 09/03/21 21:29 09/03/21 21:29 09/03/21 21:29 09/03/21 21:29 09/03/21 21:29 Oxygen Delivery Method Room Air Weight: 81.6 kg Body Mass Index (BMI) 29.9 Intake & Output: Intake and Output for Last 24 Hours 09/02/21 09/03/21 09/04/21 23:59 23:59 23:59 Intake Total 2370 / 2370 2800 / 2800 Output Total 2975 / 2975 1150 / 1150 850 / 850 Balance -605 / -605 1650 / 1650 -850 / -850 Lab / Micro Data Result Diagrams: 09/03/21 04:36 09/03/21 04:36 Labs: Laboratory Results - last 24 hr 09/02/21 11:25: Specimen Type ART, pH 7.44, Bicarbonate Actual 23.4, Total CO2 25, Base Excess -1, O2 Saturation 94 L, O2 % 21, ABG pCO2 34.2 L, ABG pO2 67 L 09/03/21 12:01: POC Glucose 274 H 09/03/21 16:19: POC Glucose 233 H 09/03/21 22:13: POC Glucose 259 H 09/04/21 06:24: POC Glucose 172 H Physical Exam Narrative Vital signs stable and afebrile. Left thigh is soft and supple SCDs and CATHERINE hose are in place bilaterally Patient is able to plantarflex and dorsiflex actively. Sensation is intact to light touch to saphenous, sural, superficial and deep peroneal, and tibial distribution. Dressing is clean dry and intact. Negative Homans bilaterally, negative signs and symptoms of DVT. Const alert, oriented x3 and no apparent distress HEENT normocephalic Eyes PERRL Neck No nuchal rigidity Chest Chest Narrative: Mild tenderness of her right rib Resp normal respiratory effort Cardio Cardio Narrative: Regular pulse rate GI non-distended Extremity Extremity Narrative: Left lower extremity: Skin clean, dry, and intact. Limb is shortened and externally rotated Motor is intact dorsiflexion, EHL and plantar flexion. Sensation is intact to light touch saphenous, daniela,l superficial peroneal, deep peroneal and tibial distributions. Calves are soft and supple. Skin no rashes or lesions noted and no wounds Neuro oriented x3 Psych mental status grossly normal and affect normal Assessment & Plan Assessment/Plan (1) S/P total left hip arthroplasty: (2) Closed fracture of left hip: QUALIFIERS: Encounter type: initial encounter Qualified Code(s): S72.002A - Fracture of unspecified part of neck of left femur, initial encounter for closed fracture PLAN: 1. S/P left direct anterior total hip arthroplasty secondary to fracture POD #2 2. Continue Pain Medications: Tylenol and oxycodone as needed for pain 3. DVT Prophylaxis: Patient will be placed back on her Xarelto today. 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 4. PT/OT: Weightbearing as tolerated with walker. I did recommend to the patient I would like to see her use the walker postoperatively as this is more s table than a cane. She has history of falls secondary to her Parkinson's. She did voice understanding agreement. 5. Continue postoperative medical management per medicine 6. Encouraged Incentive Spirometry 7. Disposition: Orthopedically stable, Okay for discharge when medically stable and acceptance and pre-CERT for [facility]. Patient is weightbearing as tolerated with walker. The Mepilex dressing will stay on for 5 days postoperatively. We do not want any tape placed on the skin after Mepilex dressing has been removed. Patient will continue with pain medications above including Tylenol primarily with occasional oxycodone as needed for pain. She will resume her Xarelto for DVT prophylaxis. Patient had direct anterior approach and only restriction is no external rotation combined with extension of the left hip such as getting in and out of the bed. I discussed with the ramsey ent postoperative symptoms that can occur with direct anterior approach which include soreness in the thigh that can last 4 to 6 weeks postoperatively. We also discussed common to have swelling in the left thigh. Signs and symptoms of infection were discussed including severe [id number] pain, hot to touch hip, drainage, running fevers over 101 ?F. Patient will require 2-week postoperative follow-up visit with Dr. Hayden Abraham for x-rays of the left hip and incision check. I would recommend continued follow-up with primary care physician once [facility]. If acceptance and pre- CERT to [facility] occurred today we are okay with discharge from orthopedic standpoint as long as patient is medically stable. At this time orthopedics will sign off. Please contact orthopedics with any concerns or questions. Appreciate assistance with management of patient perioperatively. I have reviewed the [place] Automated Rx Reporting System (OARRS) report for this patient for refill pattern and other prescriber involvement as part of the appropriate surveillance for the provision of acute and chronic controlled medications. The report was requested and reviewed on the date of this entry and was considered in the prescribing process. This dictation was created using voice recognition software. Phonetic and/or grammatical errors may exist.
[2021-09-04 08:17] VITALS: O2SAT 93
[2021-09-04 09:05] VITALS: BP 99/55; PULSE 70; RESP 20; TEMP 36.9; O2SAT 95
[2021-09-04] MEDS: DULoxetine Hcl 60 MG Capsule PO (09:18)
[2021-09-04] MEDS: Senna/Docusate Sodium 1 Tablet 2 TABLET PO ×2 (09:18→21:06)
[2021-09-04] MEDS: Lubiprostone 24 MCG Capsule PO ×2 (09:19→16:34)
[2021-09-04] MEDS: Topiramate 50 MG Tablet PO ×2 (09:20→21:06)
[2021-09-04] MEDS: Pramipexole Di-HCl 1 MG Tablet PO ×2 (09:21→21:06)
[2021-09-04] MEDS: Pantoprazole Sodium 20 MG Tablet PO (09:21)
[2021-09-04] MEDS: Ensure Surgery 237 ML LIQUID PO ×3 (09:24→16:39)
[2021-09-04] MEDS: Insulin Glargine-YFGN 100 UNIT/ML Pen 40 UNIT SC (09:25)
--- NOTE | 2021-09-04 10:45 | PN.HOSP_ITS ---
Subjective Subjective Patient seen and examined. She felt well and and had no complaints. She had an uneventful night. She complained of some nose bleed yesterday, but that has resolved. Pain is well controlled. REview of systems otherwise negative. Objective Data Objective Data Vital Signs: Vital Signs Temp Pulse Resp BP Pulse Ox 98.4 F 70 20 H 99/55 L 95 09/04/21 09:05 09/04/21 09:05 09/04/21 09:05 09/04/21 09:05 09/04/21 09:05 Oxygen Delivery Method Room Air Weight: 179 lb 14.355 oz Body Mass Index (BMI) 29.9 Intake & Output: Intake and Output for Last 24 Hours 09/02/21 09/03/21 09/04/21 23:59 23:59 23:59 Intake Total 2370 / 2370 2800 / 2800 Output Total 2975 / 2975 1150 / 1150 850 / 850 Balance -605 / -605 1650 / 1650 -850 / -850 Lab / Micro Data Result Diagrams: 09/03/21 04:36 09/03/21 04:36 Labs: Laboratory Results - last 24 hr 09/03/21 12:01: POC Glucose 274 H 09/03/21 16:19: POC Glucose 233 H 09/03/21 22:13: POC Glucose 259 H 09/04/21 06:24: POC Glucose 172 H Physical Exam Const alert, oriented x3 and no apparent distress HEENT head/scalp atraumatic and moist oral mucous membranes Head and Scalp: normocephalic Eyes conjunctivae normal and no scleral icterus Neck full ROM, no lymphadenopathy and supple General: trachea midline Resp normal respiratory effort, normal air movement, no retractions, no use of accessory muscles and clear to auscultation bilaterally Effort and Inspection: able to speak in complete sentences and symmetric chest movement Cardio regular rate, regular rhythm, S1 normal heart sound and S2 normal heart sound GI normal to inspection, nondistended, normoactive bowel sounds, soft to palpation and non-tender Extremity normal to inspection, normal capillary refill and no clubbing, cyanosis or edema Extremity Narrative: intact dressing over left hip surgical site Peripheral Pulses: Yes pulses 2+ throughout Left Lower Extremity: hip joint palpation (Tender), ROM (limited) and neurovascular exam (intact) Skin no rashes or lesions noted, no wounds and skin turgor normal Neuro oriented x3, no focal motor deficits and no sensory deficits noted Sensorium / Orientation: awake and alert Speech: speech normal Psych affect normal Assessment & Plan Assessment/Plan (1) Closed fracture of left hip: QUALIFIERS: Encounter type: initial encounter Qualified Code(s): S72.002A - Fracture of unspecified part of neck of left femur, initial encounter for closed fracture (2) Fall: QUALIFIERS: Encounter type: initial encounter Qualified Code(s): W19.XXXA - Unspecified fall, initial encounter PLAN: #LLE femoral neck fracture due to mechanical fall * s/p left anterior hip replacement * today is POD 2 * on Po tylenol, PO oxycodone and IV morphine prn for pain * PT/OT on board * fall precautions * #COPD: not in exacerbation. On breathing treatment with bronchodilators #Type 2 diabetes mellitus * on lantus 40 units daily and canagliflozin. * ISS. Accuchecks ACHS #Hypertension: BP meds held due to BP running low #Hyperlipidemia: on statin #Hypothyroidism: on synthroid #Depression and anxiety: on duloxetine #History of seizure disorde: on topamax #GERD: on PPI #Restless leg syndrome: on mirapex DVT prophylaxis: on xarelto Disposition: awaiting placement to [facility] pending pre-cert Charges/Coding Visit Charges Inpatient E&M: 94382 Subs Hosp L2
[2021-09-04 11:36] LABS: Bedside Glucose 324 mg/dL (74-106)
[2021-09-04 14:46] VITALS: BP 97/54; PULSE 86; RESP 18; TEMP 36.7; O2SAT 97
[2021-09-04] MEDS: Rivaroxaban 20 MG Tablet PO (16:33)
[2021-09-04 16:56] LABS: Bedside Glucose 324 mg/dL (74-106)
[2021-09-04 20:58] VITALS: BP 111/64; PULSE 83; RESP 18; TEMP 36.6; O2SAT 92
[2021-09-04] MEDS: Atorvastatin Calcium 10 MG Tablet PO (21:07)
[2021-09-04 21:16] LABS: Bedside Glucose 224 mg/dL (74-106)
[2021-09-05 03:25] VITALS: BP 105/65; PULSE 80; RESP 18; TEMP 37; O2SAT 97
[2021-09-05] MEDS: Levothyroxine 100 MCG Tablet PO (06:01)
[2021-09-05] MEDS: Senna/Docusate Sodium 1 Tablet 2 TABLET PO (06:01)
[2021-09-05] MEDS: Acetaminophen 500 MG Tablet 1000 MG PO ×3 (06:01→20:19)
[2021-09-05] MEDS: Topiramate 50 MG Tablet PO ×2 (06:02→20:19)
[2021-09-05] MEDS: Lubiprostone 24 MCG Capsule PO ×2 (06:02→14:54)
[2021-09-05] MEDS: Pramipexole Di-HCl 1 MG Tablet PO ×2 (06:02→20:19)
[2021-09-05] MEDS: DULoxetine Hcl 60 MG Capsule PO (06:02)
[2021-09-05] MEDS: Pantoprazole Sodium 20 MG Tablet PO (06:02)
[2021-09-05 06:10] LABS: Bedside Glucose 149 mg/dL (74-106)
[2021-09-05 06:38] LABS: Absolute Lymphocyte Count 1.17 X10^3/uL (0.83-4.51); Absolute Neutrophil Count 7.8 X10^3/uL (2.0-7.7); Basophil# 0.05 X10^3/uL; Basophil% 0.5 % (0-1); Eosinophil# 0.19 X10^3/uL; Eosinophils% 1.8 % (0-5); Hematocrit 32.4 % (37-47); Hemoglobin 10.5 g/dL (12.0-15.0); Lymphocyte # 1.17 X10^3/ul (0.83-4.51); Lymphocyte % 11.4 % (19-41); Mean Corp Hgb Conc 32.4 g/dL (32-36); Mean Corpuscular Hgb 30.3 pg (27.0-32.0); Mean Corpuscular Volume 93.4 fL (81-99); Monocyte# 0.95 X10^3/uL; Monocyte% 9.2 % (0-10); NRBC Flagged by Analyzer 0 % (0-5); Neutrophil # 7.78 X10^3/uL (2.7-7.7); Neutrophil % 75.5 % (47-70); Platelet Count 284 K/mm3 (150-450); RBC Distribution Width CV 13.8 % (11.6-14.6); Red Blood Count 3.47 M/mm3 (4.2-5.4); White Blood Count 10.3 K/mm3 (4.4-11.0)
[2021-09-05 06:51] LABS: BUN 25 mg/dL (7-18); Estimated Creatinine Clearance 41.72 ml/min; Glucose 154 mg/dL (74-106)
[2021-09-05 06:52] LABS: Anion Gap 3 (5-15); BUN/Creat Ratio 35.9 RATIO (10-20); Calcium,Total 9.4 mg/dL (8.5-10.1); Chloride 103 mmol/L (98-107); EST Glomerular Filtration Rate 87 mL/min (>60); Est Glom Filt Rate - Afr Amer 105 mL/min (>60); Potassium 3.8 mmol/L (3.5-5.1); Sodium Level 133 mmol/L (136-145)
--- NOTE | 2021-09-05 07:08 | PN.HOSP_ITS ---
Subjective Subjective Patient seen and examined. She had no active complaints and had an uneventful night. Review of systems is otherwise negative. She is awaiting placement. Objective Data Objective Data Vital Signs: Vital Signs Temp Pulse Resp BP Pulse Ox 98.6 F 80 18 105/65 97 09/05/21 03:25 09/05/21 03:25 09/05/21 03:25 09/05/21 03:25 09/05/21 03:25 Oxygen Delivery Method CPAP Weight: 183 lb 6.793 oz Body Mass Index (BMI) 29.9 Intake & Output: Intake and Output for Last 24 Hours 09/03/21 09/04/21 09/05/21 23:59 23:59 23:59 Intake Total 2800 / 2800 720 / 720 Output Total 1150 / 1150 1550 / 1550 700 / 700 Balance 1650 / 1650 -830 / -830 -700 / -700 Lab / Micro Data Result Diagrams: 09/05/21 05:42 09/05/21 05:42 Labs: Laboratory Results - last 24 hr 09/04/21 11:28: POC Glucose 324 H 09/04/21 16:32: POC Glucose 324 H 09/04/21 21:04: POC Glucose 224 H 09/05/21 05:42: WBC 10.3, RBC 3.47 L, Hgb 10.5 L, Hct 32.4 L, MCV 93.4, MCH 30.3, MCHC 32.4, RDW Std Deviation 47.0 H, RDW Coeff of Basilio 13.8, Plt Count 284, MPV 10.0, Immature Gran % (Auto) 1.600 H, Neut % (Auto) 75.5 H, Lymph % (Auto) 11.4 L, Morton % (Auto) 9.2, Eos % (Auto) 1.8, Baso % (Auto) 0.5, Absolute Neuts (auto) 7.8 H, Absolute Lymphs (auto) 1.17, Nucleated RBC % 0 09/05/21 05:42: Sodium 133 L, Potassium 3.8, Chloride 103, Carbon Dioxide 27.0, Anion Gap 3 L, BUN 25 H, Creatinine 0.70, Estim Creat Clear Calc 41.72, Est GFR (MDRD) Af Amer 105, Est GFR (MDRD) Non-Af 87, BUN/Creatinine Ratio 35.9 H, Glucose 154 H, Calcium 9.4 09/05/21 05:59: POC Glucose 149 H Physical Exam Const alert, oriented x3 and no apparent distress Exam Limitations: no limitations HEENT head/scalp atraumatic and moist oral mucous membranes Head and Scalp: normocephalic Eyes PERRL, EOMs intact bilaterally, conjunctivae normal and no scleral icterus Neck full ROM, no lymphadenopathy and supple General: trachea midline Resp normal respiratory effort, normal air movement, no retractions, no use of accessory muscles and clear to auscultation bilaterally Effort and Inspection: able to speak in complete sentences and symmetric chest movement Cardio regular rate, regular rhythm, S1 normal heart sound and S2 normal heart sound GI normal to inspection, nondistended, normoactive bowel sounds, soft to palpation and non-tender Extremity normal to inspection, normal capillary refill and no clubbing, cyanosis or edema Extremity Narrative: intact dressing over left hip surgical site Peripheral Pulses: Yes pulses 2+ throughout Left Lower Extremity: hip joint palpation (Tender), ROM (limited) and neurovascular exam (intact) Skin no rashes or lesions noted, no wounds and skin turgor normal Neuro oriented x3, no focal motor deficits and no sensory deficits noted Sensorium / Orientation: awake and alert Speech: speech normal Psych affect normal Assessment & Plan Assessment/Plan (1) Closed fracture of left hip: QUALIFIERS: Encounter type: initial encounter Qualified Code(s): S72.002A - Fracture of unspecified part of neck of left femur, initial encounter for closed fracture (2) Fall: QUALIFIERS: Encounter type: initial encounter Qualified Code(s): W19.XXXA - Unspecified fall, initial encounter PLAN: #LLE femoral neck fracture due to mechanical fall * s/p left anterior hip replacement * today is POD 3 * on Po tylenol, PO oxycodone and IV morphine prn for pain * PT/OT on board * fall precautions * #COPD: not in exacerbation. On breathing treatment with bronchodilators #Type 2 diabetes mellitus * on lantus 40 units daily and canagliflozin. * ISS. Accuchecks ACHS #Hypertension: BP meds held due to BP running low. BP has remained in the 90s and 100s systolic #Hyperlipidemia: on statin #Hypothyroidism: on synthroid #Depression and anxiety: on duloxetine #History of seizure disorder: on topamax #GERD: on PPI #Restless leg syndrome: on mirapex DVT prophylaxis: on xarelto Disposition: awaiting placement to [facility] pending pre-cert Charges/Coding Visit Charges Inpatient E&M: 09395 Subs Hosp L2
[2021-09-05 07:48] VITALS: O2SAT 94
--- NOTE | 2021-09-05 07:48 | CPS ---
Pt has own CPAP and is compliant with wearing it every night.
[2021-09-05] MEDS: oxyCODONE 5 MG Tablet PO ×2 (07:50→20:18)
[2021-09-05] MEDS: Insulin Glargine-YFGN 100 UNIT/ML Pen 40 UNIT SC (07:52)
[2021-09-05 07:54] VITALS: BP 99/65; PULSE 87; RESP 18; TEMP 36.4; O2SAT 100
[2021-09-05] MEDS: Insulin Lispro 100 UNIT/ML INSULN.PEN SC ×3 (11:48→20:16)
[2021-09-05 11:50] LABS: Bedside Glucose 177 mg/dL (74-106)
[2021-09-05 14:56] VITALS: BP 103/57; PULSE 68; RESP 16; TEMP 36.6; O2SAT 100
[2021-09-05 16:20] LABS: Bedside Glucose 150 mg/dL (74-106)
[2021-09-05] MEDS: Rivaroxaban 20 MG Tablet PO (17:31)
[2021-09-05 20:12] VITALS: BP 116/61; PULSE 72; RESP 18; TEMP 36.6; O2SAT 99
[2021-09-05] MEDS: Atorvastatin Calcium 10 MG Tablet PO (20:19)
[2021-09-05 21:31] LABS: Bedside Glucose 165 mg/dL (74-106)
[2021-09-06 03:07] VITALS: BP 108/61; PULSE 73; RESP 18; TEMP 36.6; O2SAT 98
[2021-09-06] MEDS: Levothyroxine 100 MCG Tablet PO (05:47)
[2021-09-06] MEDS: Acetaminophen 500 MG Tablet 1000 MG PO ×2 (05:47→13:44)
[2021-09-06 05:56] LABS: Bedside Glucose 117 mg/dL (74-106)
--- NOTE | 2021-09-06 07:03 | PN.HOSP_ITS ---
Subjective Subjective Feels well. Denies any new complaints. Objective Data Objective Data Vital Signs: Vital Signs Temp Pulse Resp BP Pulse Ox 36.6 C 73 18 108/61 98 09/06/21 03:07 09/06/21 03:07 09/06/21 03:07 09/06/21 03:07 09/06/21 03:07 Oxygen Delivery Method Room Air Weight: 82 kg Body Mass Index (BMI) 29.9 Intake & Output: Intake and Output for Last 24 Hours 09/04/21 09/05/21 09/06/21 23:59 23:59 23:59 Intake Total 720 / 720 750 / 750 Output Total 1550 / 1550 2250 / 2250 Balance -830 / -830 -1500 / -1500 Lab / Micro Data Result Diagrams: 09/05/21 05:42 09/05/21 05:42 Labs: Laboratory Results - last 24 hr 09/05/21 11:39: POC Glucose 177 H 09/05/21 16:16: POC Glucose 150 H 09/05/21 20:15: POC Glucose 165 H 09/06/21 05:46: POC Glucose 117 H Physical Exam Const alert and no apparent distress Resp normal respiratory effort, no retractions, no use of accessory muscles and clear to auscultation bilaterally Cardio regular rate, regular rhythm and S1 normal heart sound GI normal to inspection, nondistended, normoactive bowel sounds, soft to palpation, non-tender and non-distended Psych affect normal Assessment & Plan Assessment/Plan (1) Closed fracture of left hip: QUALIFIERS: Encounter type: initial encounter Qualified Code(s): S72.002A - Fracture of unspecified part of neck of left femur, initial encounter for closed fracture (2) S/P total left hip arthroplasty: (3) Fall: QUALIFIERS: Encounter type: initial encounter Qualified Code(s): W19.XXXA - Unspecified fall, initial encounter PLAN: 1. LLE femoral neck fracture due to mechanical fall * s/p left anterior hip replacement on 09/02/2021 * on Po tylenol, PO oxycodone * DC morphine * PT/OT on board * fall precautions 2. chronic conditions: * COPD: not in exacerbation. On breathing treatment with bronchodilators * Type 2 diabetes mellitus: on lantus 40 units daily and canagliflozin. ISS. Accuchecks ACHS * Hypertension: BP meds held due to BP running low. 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 DVT prophylaxis: on xarelto 4. Disposition: awaiting placement to [facility] pending pre-cert Charges/Coding Visit Charges Inpatient E&M: [id number] Subs Hosp L2
[2021-09-06 08:28] VITALS: O2SAT 93
[2021-09-06 08:56] VITALS: O2SAT 95
[2021-09-06 09:10] VITALS: BP 98/61; PULSE 70; RESP 18; TEMP 36.8; O2SAT 98
[2021-09-06] MEDS: Pramipexole Di-HCl 1 MG Tablet PO (09:43)
[2021-09-06] MEDS: Pantoprazole Sodium 20 MG Tablet PO (09:43)
[2021-09-06] MEDS: Topiramate 50 MG Tablet PO (09:43)
[2021-09-06] MEDS: DULoxetine Hcl 60 MG Capsule PO (09:44)
[2021-09-06] MEDS: Insulin Glargine-YFGN 100 UNIT/ML Pen 40 UNIT SC (09:45)
--- NOTE | 2021-09-06 10:06 | CASEMGMT ---
Addendum entered by Stephenie Em 09/06/21 16:02: Social Work Call from [facility] and precert has been obtained. Physician notified and ready for discharge today. 7000 convalescent form completed in [facility] and emailed along with orders to [facility]. 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 [place], pt and nursing updated on discharge plan. Pt denies SW contacting her spouse stating she will call him now and let him know of discharge. Disposition: Discharge to [facility] Skilled Level of Care under convalescent stay. CASI Esposito Original Note: Social Work Updated clinicals emailed to both Yenifer and Jazzmine at [facility]. VM left at [facility] requesting return call to discuss status of precert for pt. Pt is ready for discharge when insurance precert is obtained. Plan: [facility], pending insurance precert CASI Esposito
[2021-09-06 11:56] LABS: Bedside Glucose 177 mg/dL (74-106)
[2021-09-06] MEDS: Insulin Lispro 100 UNIT/ML INSULN.PEN SC ×2 (11:58→16:26)
[2021-09-06] MEDS: oxyCODONE 5 MG Tablet PO (14:20)
--- NOTE | 2021-09-06 15:18 | PCM.TXEXTCAR ---
Diet 09/03/21 07:20 Diet: Cardiac: Calorie-Controlled Dietary Modifications:: Gluten Free Is pt able to select menu?: Yes How many daily calories?: 1600 calorie Routine Orders/Code Status Routine Lab Work: CBC and BMP Code Status: Full Code Wound(s) Left Hip: Wound Type: Surgical Incision Therapies Weight Bearing: Weight bearing as tolerated Physical Therapy: Eval and Treat Occupational Therapy: Eval and Treat Problem/Diagnosis (1) Closed fracture of left hip: Status: Acute (2) S/P total left hip arthroplasty: Status: Acute (3) Fall: Status: Acute Allergies/Procedures Done in Hospital Allergies nitrofurantoin macrocrystalline [From Macrodantin] Allergy (Verified 08/31/21 11:32) Hives rosuvastatin [From Crestor] Adverse Reaction (Severe, Verified 08/31/21 11:32) Muscle weakness colesevelam [From WelChol] Adverse Reaction (Intermediate, Verified 08/31/21 11:32) nausea nitrofurantoin [From Furadantin] Adverse Reaction (Intermediate, Verified 08/31/21 11:32) Hives metformin Adverse Reaction (Unknown, Verified 08/31/21 11:32) Gi side effects MAPLE TREES Allergy (Uncoded 08/31/21 11:32) Hives DAIRY Adverse Reaction (Uncoded 08/31/21 11:32) Upset Stomach Type of Care/Length of Stay Estimated LOS: Convalescent Care Less Than 30 days Type of Care Needed: Skilled Rehab Potential: Fair Prognosis: Fair Additional Orders/Day of Discharge Day of Discharge: 09/06/21 Dietary and Speech Recommendations Dietitian Recommendations/Changes: will adjust diet to cardiac, 1600 calorie controlled; continue ensure surgery as tolerated Discharge Plan Admission Admit Date/Time: 08/31/21 14:37 Primary Reason for Your Visit: left hip fracture Attending Provider: Chandana Atkins Primary Care Provider: Ramakrishna Rossi Consulting Providers: Griselda Elizabeth ; Hayden Abraham ; Paola Osorio Instructions Additional Instructions / Restrictions: Patient is weightbearing as tolerated with walker. Continue physical therapy/Occupational Therapy upon discharge. Continue anterior hip precautions. Only restriction for physical therapy/Occupational Therapy is no combined external rotation of the left hip with extension. Pain medications Tylenol primarily with oxycodone for breakthrough pain. Resume Xarelto for DVT prophylaxis. Mepilex dressing can be removed on September 08, 2021. Do not submerge incision underwater for 6 weeks postoperatively. Okay to shower and get incision wet. Once Mepilex dressing is removed please protect proximal incision from the pannus with use of ABD or 4 x 4 gauze pad until incision is well-healed 4 weeks postoperatively. Do not use any tape on the skin. Patient will require 2-week follow-up with x-rays and incision check with Dr. Hayden Abraham. Discharge Orders/Prescriptions Prescriptions: New oxycodone 5 mg Tablet 5 mg PO Q6H PRN PRN (Reason: Pain Score 4-10) 3 Days Qty: 12 RF: 0 Ensure Surgery 0.08-1.4 gram-kcal/mL Liquid 237 ml PO TIDCM Qty: 0 RF: 0 Continued omeprazole 20 mg capsule,delayed release(DR/EC) 20 mg PO DAILY RF: 0 rivaroxaban 20 mg tablet 20 mg PO DAILY 30 Days Qty: 30 RF: 0 simvastatin 20 mg tablet 20 mg PO DAILY 90 Days Qty: 90 RF: 0 duloxetine 60 mg capsule,delayed release(DR/EC) 60 mg PO DAILY RF: 0 Invokana 300 mg tablet 300 mg PO QAM RF: 0 zinc gluconate 30 mg tablet 30 mg PO DAILY RF: 0 spironolactone 50 mg tablet 50 mg PO DAILY Qty: 90 RF: 2 Lantus Solostar U-100 Insulin 100 unit/mL (3 mL) insulin pen 40 unit subcut QAM RF: 0 furosemide 40 mg tablet 40 mg PO BID Qty: 180 RF: 3 pramipexole 1 mg tablet 1 mg PO BID RF: 0 topiramate 25 mg tablet 50 mg PO BID RF: 0 diphenhydramine HCl [Benadryl] 25 mg capsule 25 mg PO QHS PRN (Reason: Insomnia) RF: 0 albuterol sulfate 90 mcg/actuation HFA aerosol inhaler 2 puff inhalation Q4H PRN (Reason: Sob &/Or Wheezing) RF: 0 cholecalciferol (vitamin D3) 1,000 UNIT tablet 5,000 unit PO DAILY RF: 0 (DME) POCKET CHAMBER Spacer See Rx Instructions .ROUTE .MEDSUPPLY Qty: 1 RF: 0 levothyroxine 100 mcg tablet 100 mcg PO DAILY RF: 0 ascorbic acid (vitamin C) 500 mg Tablet 500 mg PO DAILY RF: 0 lubiprostone 24 mcg capsule 24 mcg PO BIDCM RF: 0 Changed acetaminophen 500 mg Tablet 1,000 mg PO Q8H PRN PRN (Reason: fever or pain) Qty: 30 RF: 0 Discontinued tramadol 50 mg tablet 50 mg PO DAILY PRN (Reason: Pain) RF: 0 Referrals / Follow Up: Ramakrishna Rossi MD [Primary Care Provider] - Hayden Abraham MD [STAFF PHYSICIAN] - 10/01/21 2:30 pm (will be with MAGGIE Harry) Disposition Disposition (needs filled in before D/C Order can be placed): [facility]
--- NOTE | 2021-09-06 15:25 | PCM.DC.SUM ---
Providers Date of Admission: 08/31/21 Primary Care Physician: Dr. Ramakrishna Rossi MD Consultations 09/03/21 06:34 Consult: Orthopedics Routine Consulting Provider: Hayden Abraham Reason for Consult: hip fracture EMERGENT Consult: No MD Notified: Yes Date Notified: 08/31/21 Time Notified: 14:30 Method of Notification: Text Reason For Visit: FALL, L HIP FRACTURE Diagnosis Discharge Diagnosis (1) Closed fracture of left hip: Status: Acute Code(s): S72.002A - Fracture of unspecified part of neck of left femur, initial encounter for closed fracture Qualifiers: Encounter type: initial encounter Qualified Code(s): S72.002A - Fracture of unspecified part of neck of left femur, initial encounter for closed fracture (2) S/P total left hip arthroplasty: Status: Acute Code(s): Z96.642 - Presence of left artificial hip joint (3) Fall: Status: Acute Code(s): W19.XXXA - Unspecified fall, initial encounter Qualifiers: Encounter type: initial encounter Qualified Code(s): W19.XXXA - Unspecified fall, initial encounter Medications at Discharge Home Medications omeprazole 20 mg capsule,delayed release 20 mg PO DAILY 06/19/17 cholecalciferol (vitamin D3) 5,000 unit PO DAILY 07/28/17 rivaroxaban 20 mg tablet 20 mg PO DAILY 30 Days #30 tab 09/01/17 simvastatin 20 mg tablet 20 mg PO DAILY 90 Days #90 tab 09/01/17 albuterol sulfate 90 mcg/actuation aerosol inhaler 2 puff INHALATION Q4H PRN g 12/04/20 canagliflozin 300 mg tablet 300 mg PO QAM 12/04/20 duloxetine 60 mg capsule,delayed release 60 mg PO DAILY 12/04/20 spironolactone 50 mg tablet 50 mg PO DAILY #90 tab 12/04/20 zinc gluconate 30 mg tablet 30 mg PO DAILY 12/04/20 furosemide 40 mg tablet 40 mg PO BID #180 tab 01/18/21 POCKET CHAMBER #1 ea 01/23/21 diphenhydramine HCl 25 mg capsule 25 mg PO QHS PRN 06/02/21 insulin glargine 100 unit/mL (3 mL) subcutaneous pen 40 unit SUBCUT QAM ml 06/02/21 pramipexole 1 mg tablet 1 mg PO BID tab 06/02/21 topiramate 25 mg tablet 50 mg PO BID tab 06/02/21 ascorbic acid (vitamin C) 500 mg PO DAILY 08/31/21 levothyroxine 100 mcg PO DAILY 08/31/21 lubiprostone 24 mcg PO BIDCM 08/31/21 acetaminophen 1,000 mg PO Q8H PRN PRN #30 tab 09/06/21 nut.tx.comp. immune systm,reg [Ensure Surgery] 237 ml PO TIDCM #0 ml 09/06/21 oxycodone 5 mg PO Q6H PRN PRN 3 Days #12 tab 09/06/21 Hospital Course Operations - (Left direct anterior hip replacement) Procedures None Summary of Care Provided Minutes Spent on Discharge: 32 Hospital Course: 1. LLE femoral neck fracture due to mechanical fall s/p left anterior hip replacement on 09/02/2021 on Po tylenol, PO oxycodone DC morphine PT/OT on board fall precautions 2. chronic conditions: COPD: not in exacerbation. On breathing treatment with bronchodilators Type 2 diabetes mellitus: on lantus 40 units daily and canagliflozin. ISS. Accuchecks ACHS Hypertension: BP meds held due to BP running low. 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 Weight / BMI Weight Weight: 82 kg Body Mass Index (BMI) 29.9 ABG / Lab / Microbiology Data Result Diagrams: 09/05/21 05:42 09/05/21 05:42 Laboratory: Laboratory Results - last 24 hr 09/05/21 16:16: POC Glucose 150 H 09/05/21 20:15: POC Glucose 165 H 09/06/21 05:46: POC Glucose 117 H 09/06/21 11:48: POC Glucose 177 H Microbiology: Microbiology 09/06/21 14:00 Nasal Secretion SARS-CoV-2 Antigen (Rapid) - Final Meaningful Use Info Meaningful Use Diagnoses (Choose all that apply): None applicable Discharge Plan Admission Admit Date/Time: 08/31/21 14:37 Primary Reason for Your Visit: left hip fracture Attending Provider: Chandana Atkins Primary Care Provider: Ramakrishna Rossi Consulting Providers: Griselda Elizabeth ; Hayden Abraham ; Paola Osorio Instructions Additional Instructions / Restrictions: Patient is weightbearing as tolerated with walker. Continue physical therapy/Occupational Therapy upon discharge. Continue anterior hip precautions. Only restriction for physical therapy/Occupational Therapy is no combined external rotation of the left hip with extension. Pain medications Tylenol primarily with oxycodone for breakthrough pain. Resume Xarelto for DVT prophylaxis. Mepilex dressing can be removed on September 08, 2021. Do not submerge incision underwater for 6 weeks postoperatively. Okay to shower and get incision wet. Once Mepilex dressing is removed please protect proximal incision from the pannus with use of ABD or 4 x 4 gauze pad until incision is well-healed 4 weeks postoperatively. Do not use any tape on the skin. Patient will require 2-week follow-up with x-rays and incision check with Dr. Hayden Abraham. Discharge Orders/Prescriptions Prescriptions: New oxycodone 5 mg Tablet 5 mg PO Q6H PRN PRN (Reason: Pain Score 4-10) 3 Days Qty: 12 RF: 0 Ensure Surgery 0.08-1.4 gram-kcal/mL Liquid 237 ml PO TIDCM Qty: 0 RF: 0 Continued omeprazole 20 mg capsule,delayed release(DR/EC) 20 mg PO DAILY RF: 0 rivaroxaban 20 mg tablet 20 mg PO DAILY 30 Days Qty: 30 RF: 0 simvastatin 20 mg tablet 20 mg PO DAILY 90 Days Qty: 90 RF: 0 duloxetine 60 mg capsule,delayed release(DR/EC) 60 mg PO DAILY RF: 0 Invokana 300 mg tablet 300 mg PO QAM RF: 0 zinc gluconate 30 mg tablet 30 mg PO DAILY RF: 0 spironolactone 50 mg tablet 50 mg PO DAILY Qty: 90 RF: 2 Lantus Solostar U-100 Insulin 100 unit/mL (3 mL) insulin pen 40 unit subcut QAM RF: 0 furosemide 40 mg tablet 40 mg PO BID Qty: 180 RF: 3 pramipexole 1 mg tablet 1 mg PO BID RF: 0 topiramate 25 mg tablet 50 mg PO BID RF: 0 diphenhydramine HCl [Benadryl] 25 mg capsule 25 mg PO QHS PRN (Reason: Insomnia) RF: 0 albuterol sulfate 90 mcg/actuation HFA aerosol inhaler 2 puff inhalation Q4H PRN (Reason: Sob &/Or Wheezing) RF: 0 cholecalciferol (vitamin D3) 1,000 UNIT tablet 5,000 unit PO DAILY RF: 0 (DME) POCKET CHAMBER Spacer See Rx Instructions .ROUTE .MEDSUPPLY Qty: 1 RF: 0 levothyroxine 100 mcg tablet 100 mcg PO DAILY RF: 0 ascorbic acid (vitamin C) 500 mg Tablet 500 mg PO DAILY RF: 0 lubiprostone 24 mcg capsule 24 mcg PO BIDCM RF: 0 Changed acetaminophen 500 mg Tablet 1,000 mg PO Q8H PRN PRN (Reason: fever or pain) Qty: 30 RF: 0 Discontinued tramadol 50 mg tablet 50 mg PO DAILY PRN (Reason: Pain) RF: 0 Referrals / Follow Up: Ramakrishna Rossi MD [Primary Care Provider] - Hayden Abraham MD [STAFF PHYSICIAN] - 10/01/21 2:30 pm (will be with MAGGIE Harry) Disposition Disposition (needs filled in before D/C Order can be placed): [facility] Facility Charges/Coding Visit Charges Inpatient E&M: 43717 Disch Hosp
[2021-09-06] MEDS: Lubiprostone 24 MCG Capsule PO (16:25)
[2021-09-06] MEDS: Rivaroxaban 20 MG Tablet PO (16:25)
[2021-09-06 16:28] VITALS: BP 97/53; PULSE 70; RESP 18; TEMP 36.8; O2SAT 98
[2021-09-06 16:50] LABS: Bedside Glucose 167 mg/dL (74-106)
== END 2021-09-06 16:55 | disposition skilled nursing facility (03) | DRG 522 ==
LOC: ED 14:31 → MS3 15:03
PROVIDERS: Anesthesiology; Nurse Practitioner Family; Physician Assistant; Specialist; Student in an Organized Health Care Education/Training Program; Admitting Provider Family Medicine; Emergency Provider Emergency Medicine; PCP Family Medicine
PROC: 0SRB04Z Replacement of Left Hip Joint with Ceramic on Polyethylene Synthetic Substitute, Open Approach (ICD-10-PCS; CPT 27284; principal; 2021-09-02 16:05)
DX: S72.002A Fracture of unspecified part of neck of left femur, initial encounter for closed fracture (principal); D62 Acute posthemorrhagic anemia; G20 Parkinson's disease; J44.9 Chronic obstructive pulmonary disease, unspecified; G40.909 Epilepsy, unspecified, not intractable, without status epilepticus; E11.9 Type 2 diabetes mellitus without complications; Z79.4 Long term (current) use of insulin; E03.9 Hypothyroidism, unspecified; K21.9 Gastro-esophageal reflux disease without esophagitis; I10 Essential (primary) hypertension; G47.33 Obstructive sleep apnea (adult) (pediatric); G25.81 Restless legs syndrome; E78.5 Hyperlipidemia, unspecified; F41.9 Anxiety disorder, unspecified; W01.0XXA Fall on same level from slipping, tripping and stumbling without subsequent striking against object, initial encounter; M16.10 Unilateral primary osteoarthritis, unspecified hip; M54.50 Low back pain, unspecified; F32.A Depression, unspecified; R53.81 Other malaise; Z80.0 Family history of malignant neoplasm of digestive organs; Z79.01 Long term (current) use of anticoagulants; R04.0 Epistaxis; Z96.642 Presence of left artificial hip joint
CPT/HCPCS: 36415; 36600; 71045; 73501; 73502; 76000; 80048; 80053; 82803; 82962; 83036; 83735; 85025; 85610; 85730; 86850; 86900; 86901; 87426; 88305; 88311; 93005; 97110; 97116; 97162; 97166; 97530; 99251; 99284; C1776; J7030; A4216; G0463; J0330; J2405

== ENCOUNTER → 2021-10-04 | Outpatient (CLI) | payer MEDICARE, SELFPAY ==
--- NOTE | 2021-10-04 15:12 | US_ITS ---
STUDY: RENAL ULTRASOUND - COMPLETE REASON FOR EXAM: Female, 76 years old. UTI TECHNIQUE: Ultrasound evaluation of the kidneys was performed with real-time and static rodriguez-scale imaging. COMPARISON: CT 12/12/2020. FINDINGS: RIGHT KIDNEY: Normal location of the right kidney, which is normal in size. The right kidney measures 8.9 x 5 cm. There is a normal cortex of the right kidney. The renal cortex measures 1.3 cm. There is no right renal mass or cyst. There are no right renal calculi. There is no right hydronephrosis. DISTAL RIGHT URETER: There is non-visualization of the distal right ureter. There is no demonstrated right ureterovesical junction calculus. There is a visualized right ureteral jet. LEFT KIDNEY: Normal location of the left kidney, which is normal in size. The left kidney measures 9.7 x 5.2 cm. There is a normal cortex of the left kidney. The renal cortex measures 1.7 cm. There is no left renal mass or cyst. There are no left renal calculi. There is mild hydronephrosis of the left kidney. DISTAL LEFT URETER: There is non-visualization of the distal left ureter. There is no demonstrated left ureterovesical junction calculus. There is a visualized left ureteral jet. AORTA: There is obscuration of the abdominal aorta by overlying bowel gas I.V.C.: The IVC is obscured. BLADDER: The distended urinary bladder has a volume of 185 ml. The empty urinary bladder has a volume of 73 ml. There is a normal wall thickness of the distended urinary bladder. There is no demonstrated mass within the urinary bladder. There are no demonstrated bladder calculi. US/Kidney and Bladder IMPRESSION: There is mild hydronephrosis of the left kidney. Electronically Signed: Donny Dai MD at 17:54 EDT ,
== END | disposition home or self-care (01) ==
LOC: US 15:11
PROVIDERS: PCP Family Medicine; Referring Provider Urology; Visit Provider Urology
DX: N39.0 Urinary tract infection, site not specified (principal)
CPT/HCPCS: 76770

== ENCOUNTER → 2021-10-14 | Outpatient (CLI) | payer MEDICARE, SELFPAY ==
--- NOTE | 2021-10-14 07:56 | CT_ITS ---
STUDY: CT ABDOMEN AND PELVIS WITH AND WITHOUT CONTRAST REASON FOR EXAM: Female, 76 years old. L HYDRONEPHROSIS RADIATION DOSAGE (If Supplied By Facility): CTDIvol = ( 13.52 ) mGy, DLP = ( 2772.86 ) mGycm TECHNIQUE: Transaxial images were obtained from the dome of the diaphragm to the symphysis pubis without oral contrast. IV 75mL Isovue-300 was administered. Sagittal and coronal images were reconstructed. Individualized dose optimization techniques were used for this CT. COMPARISON: Comparison is made with prior study 12/12/2020. FINDINGS: The visualized lung bases are unremarkable. Coronary artery calcification. Normal liver. Nonvisualization of the gallbladder most likely secondary to prior cholecystectomy. Normal spleen. Normal pancreas. Normal bilateral adrenal glands. Small bilateral parapelvic renal cysts. No evidence of hydronephrosis at this time. Stable moderate-sized hiatal hernia. Normal small intestine. Normal colon. The appendix is visualized and appears normal. There is diffuse atherosclerotic calcification of the abdominal aorta, without a demonstrated aneurysm. Normal inferior vena cava. Normal retroperitoneum. Normal urinary bladder. Normal abdominal wall. There are degenerative changes of the visualized lumbar spine. Status post bilateral hip replacement. Prior laminectomy and fusion of the lower lumbar spine. CT/CT Abd/Pelvis W/WO Contrast IMPRESSION: Moderate sized hiatal hernia. No evidence of hydronephrosis at this time. Electronically Signed: Zion Chen MD at 10:53 EDT ,
[2021-10-14 08:11] LABS: CREATININE FINGERSTICK < 0.9 mg/dL (0.55-1.02); EGFR FINGERSTICK > 60.0000 mL/min (>60)
== END | disposition home or self-care (01) ==
PROVIDERS: PCP Family Medicine; Referring Provider Urology; Visit Provider Urology
DX: K44.9 Diaphragmatic hernia without obstruction or gangrene (principal); I70.0 Atherosclerosis of aorta; E11.9 Type 2 diabetes mellitus without complications; N28.1 Cyst of kidney, acquired; I25.10 Atherosclerotic heart disease of native coronary artery without angina pectoris; Z96.643 Presence of artificial hip joint, bilateral; N13.30 Unspecified hydronephrosis
CPT/HCPCS: 74178; Q9967

== ENCOUNTER 2021-10-17 12:57 | Emergency (ER) | payer MEDICARE, SELFPAY ==
[2021-10-17 12:58] VITALS: BP 119/60; PULSE 85; RESP 16; TEMP 36.4; O2SAT 99; BMI 28.6
--- NOTE | 2021-10-17 13:56 | EDS_ITS ---
HPI History of Present Illness Chief Complaint: Nosebleed Informant: patient Narrative Narrative: Patient presents secondary to frequent nosebleeds for the last 6 weeks. She is had 3 nosebleeds today from the right nare. She states is always from the same side. She is currently on Xarelto secondary to A. fib. She is was been able to get the bleeding to stop. She has not seen ENT. [facility] Medical History (Updated 10/17/21 @ 14:[address] Shara Ness MD) Asthma COPD (chronic obstructive pulmonary disease) Depression Diabetes mellitus type II, controlled Edema Esophageal spasm Essential hypertension GERD (gastroesophageal reflux disease) Hiatal hernia History of basal cell carcinoma (BCC) History of DVT (deep vein thrombosis) History of pulmonary embolism Hyperlipidemia Hypothyroidism IBS (irritable bowel syndrome) Kidney disease Lumbar back pain Lung disease Obesity (BMI 30.0-34.9) JHONY (obstructive sleep apnea) Osteoarthritis Parkinsons disease Premature atrial contractions Seizure disorder Sleep apnea Symptomatic bradycardia Venous insufficiency Home Medications omeprazole 20 mg capsule,delayed release 20 mg PO DAILY ACID REFLUX 06/19/17 [History Last Taken 08/31/21] cholecalciferol (vitamin D3) 25 mcg (1,000 unit) tablet 5,000 unit PO DAILY SUPPLEMENT 07/28/17 [History Last Taken 08/30/21] rivaroxaban 20 mg tablet 20 mg PO DAILY 30 days #30 tabs 09/01/17 [History Last Taken 08/30/21] simvastatin 20 mg tablet 20 mg PO DAILY 90 days #90 tabs 09/01/17 [History Last Taken 08/30/21] albuterol sulfate 90 mcg/actuation aerosol inhaler 2 puff inhalation Q4H PRN Sob &/Or Wheezing 12/04/20 [History Last Taken Unknown] canagliflozin 300 mg tablet (Invokana) 300 mg PO QAM 12/04/20 [History Last Taken 08/31/21] duloxetine 60 mg capsule,delayed release 60 mg PO DAILY 12/04/20 [History Last Taken 08/30/21] spironolactone 50 mg tablet 50 mg PO DAILY #90 tabs 12/04/20 [Rx Last Taken 08/30/21] zinc gluconate 30 mg tablet 30 mg PO DAILY 12/04/20 [History Last Taken 08/30/21] furosemide 40 mg tablet 40 mg PO BID #180 tabs 01/18/21 [Rx Last Taken 08/31/21] inhalational spacing device (POCKET CHAMBER) #1 ea 01/23/21 [Rx Last Taken Unknown] diphenhydramine HCl 25 mg capsule (Benadryl) 25 mg PO QHS PRN Insomnia 06/02/21 [History Last Taken 08/30/21] insulin glargine 100 unit/mL (3 mL) subcutaneous pen (Lantus Solostar U-100 Insulin) 40 unit subcut QAM 06/02/21 [History Last Taken 08/31/21] pramipexole 1 mg tablet 1 mg PO BID 06/02/21 [History Last Taken 08/31/21] topiramate 25 mg tablet 50 mg PO BID 06/02/21 [History Last Taken 08/31/21] ascorbic acid (vitamin C) 500 mg tablet 500 mg PO DAILY SUPPLEMENT 08/31/21 [History Last Taken 08/30/21] levothyroxine 100 mcg tablet 100 mcg PO DAILY THYROID 08/31/21 [History Last Taken 08/31/21] lubiprostone 24 mcg capsule 24 mcg PO BIDCM 08/31/21 [History Last Taken 08/31/21] acetaminophen 500 mg tablet 1,000 mg PO Q8H PRN PRN fever or pain #30 tabs 09/06/21 [Rx Last Taken 08/30/21] nut.tx.comp. immune systm,reg 0.08 gram-1.4 kcal/mL oral liquid (Ensure Surgery) 237 ml PO TIDCM #0 mL 09/06/21 [Rx Last Taken Unknown] oxycodone 5 mg tablet 5 mg PO Q6H PRN PRN Pain Score 4-10 3 days #12 tabs 09/06/21 [Rx Last Taken Unknown] Allergy/AdvReac Type Severity Reaction Status Date / Time nitrofurantoin Allergy Hives Verified 10/17/21 12:58 macrocrystalline [From Macrodantin] rosuvastatin [From Crestor] AdvReac Severe Muscle Verified 10/17/21 12:58 weakness colesevelam [From WelChol] AdvReac Intermediate nausea Verified 10/17/21 12:58 nitrofurantoin AdvReac Intermediate Hives Verified 10/17/21 12:58 [From Furadantin] metformin AdvReac Unknown Gi side Verified 10/17/21 12:58 effects MAPLE TREES Allergy Hives Uncoded 10/17/21 12:58 DAIRY AdvReac Upset Uncoded 10/17/21 12:58 Stomach Family History Father CAD (coronary artery disease) Diabetes Myocardial infarction Alzheimers disease Hypertension Parkinson's disease Cancer melanoma History of blood clots Mother Diabetes AAA (abdominal aortic aneurysm) Bleeding disorder Colon cancer Thyroid disorder Brother Multiple sclerosis Skin cancer Surgical History History of cholecystectomy History of lumbar fusion (~2012) History of Belkys fundoplication History of right hip replacement (~07/08/15) History of tonsillectomy and adenoidectomy Hx of hernia repair Hx of lumbar discectomy Social History Smoking Status: Never smoker alcohol intake: never substance use type: does not use diet: diabetic and gluten free caffeine: No what type of physical activity do you participate in: none seatbelt use: always do you feel safe at home: Yes ROS ROS ED Constitutional Constitutional ED: Denies chills or fever(s) Eyes Eyes: Denies change in vision or discharge from eye(s) ENT ENT ED: Reports other Details: Frequent nosebleeds right nare ; Denies discharge from eye(s), rhinorrhea or sore throat Cardiovascular Cardiovascular: Denies chest pain or palpitations Respiratory/Chest Respiratory/Chest: Denies cough or dyspnea Gastrointestinal Gastrointestinal: Denies abdominal pain, diarrhea, nausea or vomiting Genitourinary Genitourinary ED: Denies difficulty urinating or dysuria Musculoskeletal Musculoskeletal: Denies back pain or extremity pain Integumentary Denies Abrasions or rash Neurologic Neurologic: Denies headache(s) or weakness Allergic/Immunologic Allergic/Immunologic ED: Denies lip swelling or urticaria EXAM Physical Exam Const Vital Signs: 10/17/21 12:58 Temperature 97.5 F L Temperature Source Temporal Pulse Rate 85 Respiratory Rate 16 Blood Pressure 119/60 Blood Pressure Mean 79 Pulse Ox 99 Oxygen Delivery Method Room Air Positive well nourished and well developed General Appearance ED: well developed HEENT HEENT Narrative: Scant blood noted in the right nare. Edema noted to the turbinates bilaterally. No active bleeding. Eyes PERRL and EOMs intact bilaterally Resp normal respiratory effort and clear to auscultation bilaterally Cardio regular rate and regular rhythm GI non-tender Palpation: soft Neuro oriented x3 Psych mental status grossly normal Skin no rashes or lesions noted MDM [facility] Treatment and Re-Evaluation Narrative: [place]ball with Cetacaine and Afrin placed in the right nare. After short time this was removed and Merisel packing is placed. Patient has been observed and has had no further bleeding at this time. She will be instructed on using pressure if she rebleeds. She is to follow-up with ENT. Discharge Plan Triage Chief Complaint: Nosebleed ED Provider: Shara Ness Dx/Rx/DC Orders Clinical Impression: Epistaxis Instructions: Nosebleed Prescriptions: No Action omeprazole 20 mg capsule,delayed release(DR/EC) 20 mg PO DAILY rivaroxaban 20 mg tablet 20 mg PO DAILY 30 Days Qty: 30 Label Comments: TAKE 1 TABLET EVERY DAY simvastatin 20 mg tablet 20 mg PO DAILY 90 Days Qty: 90 Label Comments: TAKE 1 TABLET BY MOUTH EVERY DAY duloxetine 60 mg capsule,delayed release(DR/EC) 60 mg PO DAILY Invokana 300 mg tablet 300 mg PO QAM zinc gluconate 30 mg tablet 30 mg PO DAILY spironolactone 50 mg tablet 50 mg PO DAILY Qty: 90 2RF Lantus Solostar U-100 Insulin 100 unit/mL (3 mL) insulin pen 40 unit subcut QAM furosemide 40 mg tablet 40 mg PO BID Qty: 180 3RF pramipexole 1 mg tablet 1 mg PO BID topiramate 25 mg tablet 50 mg PO BID diphenhydramine HCl [Benadryl] 25 mg capsule 25 mg PO QHS PRN (Reason: Insomnia) albuterol sulfate 90 mcg/actuation HFA aerosol inhaler 2 puff inhalation Q4H PRN (Reason: Sob &/Or Wheezing) cholecalciferol (vitamin D3) 1,000 UNIT tablet 5,000 unit PO DAILY (DME) POCKET CHAMBER Spacer See Rx Instructions .ROUTE .MEDSUPPLY Qty: 1 0RF Rx Instructions: As directed levothyroxine 100 mcg tablet 100 mcg PO DAILY Label Comments: TAKE 1 TABLET BY MOUTH EVERY DAY ascorbic acid (vitamin C) 500 mg Tablet 500 mg PO DAILY lubiprostone 24 mcg capsule 24 mcg PO BIDCM Label Comments: Take 1 capsule by mouth twice daily with meals. oxycodone 5 mg Tablet 5 mg PO Q6H PRN PRN (Reason: Pain Score 4-10) 3 Days Qty: 12 0RF Ensure Surgery 0.08-1.4 gram-kcal/mL Liquid 237 ml PO TIDCM Qty: 0 0RF acetaminophen 500 mg Tablet 1,000 mg PO Q8H PRN PRN (Reason: fever or pain) Qty: 30 0RF Primary Care Provider: Ramakrishna Rossi Referrals: Eric Oviedo MD [STAFF PHYSICIAN] - 3-5 Days Ramakrishna Rossi MD [Primary Care Provider] - Disposition Disposition: Home, Self Care
[2021-10-17] MEDS: Tetracaine/Benzocaine/Butamben 1 APPLIC TOPICAL (14:00)
[2021-10-17] MEDS: Oxymetazoline 0.05% 1 SPRAY SPRAY.BTL 2 SPRAY NASAL (14:00)
[2021-10-17 14:43] VITALS: PULSE 68; O2SAT 98
== END 2021-10-17 14:43 | disposition home or self-care (01) ==
PROVIDERS: Emergency Provider Emergency Medicine; PCP Family Medicine; Visit Provider Emergency Medicine
DX: R04.0 Epistaxis (principal); J44.9 Chronic obstructive pulmonary disease, unspecified; I48.91 Unspecified atrial fibrillation; E11.9 Type 2 diabetes mellitus without complications; Z79.4 Long term (current) use of insulin; I10 Essential (primary) hypertension; E78.5 Hyperlipidemia, unspecified; G47.33 Obstructive sleep apnea (adult) (pediatric)
CPT/HCPCS: 30901; 99282

== ENCOUNTER 2021-10-23 18:58 | Emergency (ER) | payer MEDICARE, SELFPAY ==
[2021-10-23 18:59] VITALS: BP 137/74; PULSE 101; RESP 16; TEMP 36.4; O2SAT 98; BMI 28.4
--- NOTE | 2021-10-23 19:26 | EDS_ITS ---
HPI History of Present Illness Chief Complaint: Other, Pain/Inj Detail of Chief Complaint: Right lower rib pain after bending over Informant: patient and spouse/S.O. Onset/Context/Timing Onset: Today and Hours Context: Sudden Onset Timing: Continuous Current Severity: Mild Maximum Severity: Moderate Narrative Narrative: 76-year-old female today was sitting in chair bent over to pick something up felt a pop and had pain to her right lower rib cage. On the seventh earlier this year she fell and broke a rib in the same area. Also fell in August 31 and had a hip fracture and had surgery to replace her hip. She denies any falls today just that she bent over. She does have a history of COPD, diabetes, DVT on Xarelto, Parkinson's disease and A. fib. Said it hurts to move and there is pain in the right lower rib cage. Prior similar symptoms: Yes Recent Illness/Hospitalization: Yes [facility] Medical History Asthma COPD (chronic obstructive pulmonary disease) Depression Diabetes mellitus type II, controlled Edema Esophageal spasm Essential hypertension GERD (gastroesophageal reflux disease) Hiatal hernia History of basal cell carcinoma (BCC) History of DVT (deep vein thrombosis) History of pulmonary embolism Hyperlipidemia Hypothyroidism IBS (irritable bowel syndrome) Kidney disease Lumbar back pain Lung disease Obesity (BMI 30.0-34.9) JHONY (obstructive sleep apnea) Osteoarthritis Parkinsons disease Premature atrial contractions Seizure disorder Sleep apnea Symptomatic bradycardia Venous insufficiency Home Medications omeprazole 20 mg capsule,delayed release 20 mg PO DAILY ACID REFLUX 06/19/17 [History Last Taken 08/31/21] cholecalciferol (vitamin D3) 25 mcg (1,000 unit) tablet 5,000 unit PO DAILY SUPPLEMENT 07/28/17 [History Last Taken 08/30/21] rivaroxaban 20 mg tablet 20 mg PO DAILY 30 days #30 tabs 09/01/17 [History Last Taken 08/30/21] simvastatin 20 mg tablet 20 mg PO DAILY 90 days #90 tabs 09/01/17 [History Last Taken 08/30/21] albuterol sulfate 90 mcg/actuation aerosol inhaler 2 puff inhalation Q4H PRN Sob &/Or Wheezing 12/04/20 [History Last Taken Unknown] canagliflozin 300 mg tablet (Invokana) 300 mg PO QAM 12/04/20 [History Last Taken 08/31/21] duloxetine 60 mg capsule,delayed release 60 mg PO DAILY 12/04/20 [History Last Taken 08/30/21] spironolactone 50 mg tablet 50 mg PO DAILY #90 tabs 12/04/20 [Rx Last Taken 08/30/21] zinc gluconate 30 mg tablet 30 mg PO DAILY 12/04/20 [History Last Taken 08/30/21] furosemide 40 mg tablet 40 mg PO BID #180 tabs 01/18/21 [Rx Last Taken 08/31/21] inhalational spacing device (POCKET CHAMBER) #1 ea 01/23/21 [Rx Last Taken Unknown] diphenhydramine HCl 25 mg capsule (Benadryl) 25 mg PO QHS PRN Insomnia 06/02/21 [History Last Taken 08/30/21] insulin glargine 100 unit/mL (3 mL) subcutaneous pen (Lantus Solostar U-100 Insulin) 40 unit subcut QAM 06/02/21 [History Last Taken 08/31/21] pramipexole 1 mg tablet 1 mg PO BID 06/02/21 [History Last Taken 08/31/21] topiramate 25 mg tablet 50 mg PO BID 06/02/21 [History Last Taken 08/31/21] ascorbic acid (vitamin C) 500 mg tablet 500 mg PO DAILY SUPPLEMENT 08/31/21 [History Last Taken 08/30/21] levothyroxine 100 mcg tablet 100 mcg PO DAILY THYROID 08/31/21 [History Last Taken 08/31/21] lubiprostone 24 mcg capsule 24 mcg PO BIDCM 08/31/21 [History Last Taken 08/31/21] acetaminophen 500 mg tablet 1,000 mg PO Q8H PRN PRN fever or pain #30 tabs 09/06/21 [Rx Last Taken 08/30/21] nut.tx.comp. immune systm,reg 0.08 gram-1.4 kcal/mL oral liquid (Ensure Surgery) 237 ml PO TIDCM #0 mL 09/06/21 [Rx Last Taken Unknown] oxycodone 5 mg tablet 5 mg PO Q6H PRN PRN Pain Score 4-10 3 days #12 tabs 09/06/21 [Rx Last Taken Unknown] hydrocodone-acetaminophen 5-325mg 5mg-325mg 1 tab PO Q4H PRN pain 5 days #20 tabs 10/23/21 [Rx Last Taken Unknown] Allergy/AdvReac Type Severity Reaction Status Date / Time nitrofurantoin Allergy Hives Verified 10/23/21 19:00 macrocrystalline [From Macrodantin] rosuvastatin [From Crestor] AdvReac Severe Muscle Verified 10/23/21 19:00 weakness colesevelam [From WelChol] AdvReac Intermediate nausea Verified 10/23/21 19:00 nitrofurantoin AdvReac Intermediate Hives Verified 10/23/21 19:00 [From Furadantin] metformin AdvReac Unknown Gi side Verified 10/23/21 19:00 effects [place] Allergy Hives Uncoded 10/23/21 19:00 DAIRY AdvReac Upset Uncoded 10/23/21 19:00 Stomach Family History Father CAD (coronary artery disease) Diabetes Myocardial infarction Alzheimers disease Hypertension Parkinson's disease Cancer melanoma History of blood clots Mother Diabetes AAA (abdominal aortic aneurysm) Bleeding disorder Colon cancer Thyroid disorder Brother Multiple sclerosis Skin cancer Surgical History History of cholecystectomy History of lumbar fusion (~2012) History of Belkys fundoplication History of right hip replacement (~07/08/15) History of tonsillectomy and adenoidectomy Hx of hernia repair Hx of lumbar discectomy Social History Smoking Status: Never smoker alcohol intake: never substance use type: does not use diet: diabetic and gluten free caffeine: No what type of physical activity do you participate in: none seatbelt use: always do you feel safe at home: Yes ROS ROS ED ROS Narrative Denies recent illness. Review of Systems ROS Unobtainable: Denies due to encephalopathy Constitutional Constitutional ED: Denies chills Eyes Eyes: Denies blurry vision ENT ENT ED: Denies ear pain Cardiovascular Cardiovascular: Denies chest pain Respiratory/Chest Respiratory/Chest: Denies cough Gastrointestinal Gastrointestinal: Denies abdominal pain Genitourinary Genitourinary ED: Denies dysuria Musculoskeletal Musculoskeletal: Denies arthralgias Integumentary Denies abscess Neurologic Neurologic: Denies headache(s) Psychiatric Psychiatric: Denies anxiety Endocrine Endocrinology: Denies cold intolerance Hematologic/Lymphatic Hematologic/Lymphatic: Reports none Allergic/Immunologic Allergic/Immunologic ED: Denies mouth swelling EXAM Physical Exam Narrative Exam Narrative: 68-year-old female no acute distress. Vital signs stable afebrile. Pulse ox 90% on room air no signs hypoxia. H EENT exam unremarkable. Neck nontender. Lungs are clear equal symmetrical. Splinting on the right. Heart regular rhythm rate about 100 no murmur. Chest wall right lower rib cage pain. No ecchymosis or bruising. No subcu air or crepitance. Abdomen soft nontender. Pelvic girdle intact. Moving all 4 extremities. Neurologically she is awake and alert. Const Vital Signs: 10/23/21 18:59 10/23/21 19:39 Temperature 97.6 F L Temperature Source Temporal Pulse Rate 101 H Respiratory Rate 16 Respiratory Effort Normal Non-Labored Respiratory Pattern Normal Blood Pressure 137/74 H Blood Pressure Mean 95 Pulse Ox 98 Oxygen Delivery Method Room Air Positive well nourished and well developed; Negative for cachectic, contractures or unkempt General Appearance ED: well developed; Negative for unkempt, cachectic or contractures Nutritional Appearance: Negative for cachectic HEENT Reports moist mucous membranes Negative for trauma Eyes PERRL General Eye ED: Negative for pale conjunctiva Neck no lymphadenopathy, supple and no JVD Chest Wall inspection of chest normal and palpation of chest normal Resp normal respiratory effort and clear to auscultation bilaterally Resp Narrative: Right lower rib tenderness. Effort and Inspection: Negative for retractions Auscultation: Negative for rales, rhonchi or wheezes Cardio regular rate, regular rhythm, S1 normal heart sound, S2 normal heart sound and no murmurs GI normal to inspection, nondistended, normoactive bowel sounds, non-tender, non- distended, hepatosplenomegaly and no masses Inspection: Negative for abdominal distention Auscultation: normoactive bowel sounds Palpation: soft; Negative for tender, guarding or splenomegaly Back/Spine no CVA tenderness Cervical Spine: Negative for cervical spine tenderness Thoracic Spine / Upper Back: Negative for thoracic spinal tenderness Lumbar Spine / Lower Back: Negative for lumbar spinal tenderness Extremity normal to inspection General Extremety ED: Negative for edema or tenderness General Extremity: Negative for edema Neuro oriented x3 Sensorium / Orientation: alert; Negative for orientation impaired, lethargic or stuporous Motor Exam: strength 5/5 throughout Psych mental status grossly normal Appearance: Negative for unkempt Attitude: No agitated Mood & Affect: Negative for depressed Skin no rashes or lesions noted and no wounds Rashes: No rashes noted Trauma: Negative for abrasion Wounds: Negative for wounds noted MDM MDM MDM Narrative Medical decision making narrative: [id number] female bent over in a chair fell pain in her right cheek. History of prior fall with rib fracture. I suspect she refractured that rib or possibly fractured another rib. X-ray will be obtained. She was given 1 [place] for pain. Patient doing fine on repeat exam at 7:50 p.m. We discussed her x-ray and that I still feel that she has a rib fracture but just did not show up on the x-ray. She was written for [place] for pain. And outpatient follow-up. Radiography Chest X-Ray - ED: 2 View, Read by ED Physician, Heart, Lungs, Mediastinum, Bony Structures, No Acute Disease and Chronic Changes Diagnostic Testing: Chest x-ray, 2 views, interpreted by myself shows no acute abnormality. Normal cardiac silhouette. Normal mediastinum. No pneumothorax. No hemothorax. I do not see any obvious rib fracture even though clinically I am concerned the patient has a fractured rib on the right. I did explain to her and her that often rib fractures not seen on a plain film. Discharge Plan Triage Chief Complaint: Other, Pain/Inj ED Provider: David Emerson Dx/Rx/DC Orders Clinical Impression: Closed rib fracture Instructions: ED Rib Fracture Prescriptions: New hydrocodone-acetaminophen 5-325 mg tablet 1 tab PO Q4H PRN (Reason: pain) 5 Days Qty: 20 0RF No Action omeprazole 20 mg capsule,delayed release(DR/EC) 20 mg PO DAILY rivaroxaban 20 mg tablet 20 mg PO DAILY 30 Days Qty: 30 Label Comments: TAKE 1 TABLET EVERY DAY simvastatin 20 mg tablet 20 mg PO DAILY 90 Days Qty: 90 Label Comments: TAKE 1 TABLET BY MOUTH EVERY DAY duloxetine 60 mg capsule,delayed release(DR/EC) 60 mg PO DAILY Invokana 300 mg tablet 300 mg PO QAM zinc gluconate 30 mg tablet 30 mg PO DAILY spironolactone 50 mg tablet 50 mg PO DAILY Qty: 90 2RF Lantus Solostar U-100 Insulin 100 unit/mL (3 mL) insulin pen 40 unit subcut QAM furosemide 40 mg tablet 40 mg PO BID Qty: 180 3RF pramipexole 1 mg tablet 1 mg PO BID topiramate 25 mg tablet 50 mg PO BID diphenhydramine HCl [Benadryl] 25 mg capsule 25 mg PO QHS PRN (Reason: Insomnia) albuterol sulfate 90 mcg/actuation HFA aerosol inhaler 2 puff inhalation Q4H PRN (Reason: Sob &/Or Wheezing) cholecalciferol (vitamin D3) 1,000 UNIT tablet 5,000 unit PO DAILY (DME) POCKET CHAMBER Spacer See Rx Instructions .ROUTE .MEDSUPPLY Qty: 1 0RF Rx Instructions: As directed levothyroxine 100 mcg tablet 100 mcg PO DAILY Label Comments: TAKE 1 TABLET BY MOUTH EVERY DAY ascorbic acid (vitamin C) 500 mg Tablet 500 mg PO DAILY lubiprostone 24 mcg capsule 24 mcg PO BIDCM Label Comments: Take 1 capsule by mouth twice daily with meals. oxycodone 5 mg Tablet 5 mg PO Q6H PRN PRN (Reason: Pain Score 4-10) 3 Days Qty: 12 0RF Ensure Surgery 0.08-1.4 gram-kcal/mL Liquid 237 ml PO TIDCM Qty: 0 0RF acetaminophen 500 mg Tablet 1,000 mg PO Q8H PRN PRN (Reason: fever or pain) Qty: 30 0RF Primary Care Provider: Ramakrishna Rossi Referrals: Ramakrishna Rossi MD [Primary Care Provider] - 1 Week if not improving Activity Restrictions/Additional Instructions: Suspected broken rib on the right. Not seen on the x-ray. This is not uncommon to not see broken ribs on x-ray. Ice to the chest wall. Pillow to brace the injured rib. [place] for pain. Plenty of fluids. Plenty of fiber via constipation. No alcohol. No driving while using this medication. Follow-up with your doctor if not improving. Return if feeling worse. Disposition Disposition: Home, Self Care
[2021-10-23] MEDS: HYDROcodone Bitartrate/Apap 5/325 Tablet PO (19:29)
--- NOTE | 2021-10-23 19:30 | RAD_ITS ---
STUDY: XR Chest 2 Views 10/23/2021 7:36 PM REASON FOR EXAM: Female, 76 years old. CHEST PAIN right lower rib pain COMPARISON: 08/31/2021 TECHNIQUE: XR Chest 2 Views FINDINGS: There is no demonstrated pleural abnormality. Normal heart size. Normal mediastinum. Normal roderick. Prominent appearing increased interstitial lung markings. Normal visualized pulmonary arteries. There is atherosclerotic calcification of the aortic arch with tortuosity. There are diffuse degenerative changes of the visualized thoracic spine. There is degenerative osteoarthritis of the bilateral shoulders. There is a hiatal hernia. RAD/Chest PA and Lateral IMPRESSION: There are no acute findings. Electronically Signed: Donny Dai MD at 19:51 EDT ,
[2021-10-23 19:48] VITALS: RESP 18
== END 2021-10-23 20:02 | disposition home or self-care (01) ==
PROVIDERS: Emergency Provider Emergency Medicine; PCP Family Medicine; Visit Provider Emergency Medicine
DX: R07.81 Pleurodynia (principal); G20 Parkinson's disease; J44.9 Chronic obstructive pulmonary disease, unspecified; G40.909 Epilepsy, unspecified, not intractable, without status epilepticus; E11.9 Type 2 diabetes mellitus without complications; Z79.4 Long term (current) use of insulin; I10 Essential (primary) hypertension; E78.5 Hyperlipidemia, unspecified; E66.9 Obesity, unspecified; K21.9 Gastro-esophageal reflux disease without esophagitis; Z86.718 Personal history of other venous thrombosis and embolism; G47.33 Obstructive sleep apnea (adult) (pediatric); M19.90 Unspecified osteoarthritis, unspecified site; F32.A Depression, unspecified; R60.9 Edema, unspecified; N28.9 Disorder of kidney and ureter, unspecified; E03.9 Hypothyroidism, unspecified; K58.9 Irritable bowel syndrome, unspecified
CPT/HCPCS: 71046; 99282

== ENCOUNTER 2021-11-05 04:48 | Emergency (ER) | payer MEDICARE, SELFPAY ==
[2021-11-05 04:48] VITALS: BP 125/70; PULSE 75; RESP 18; TEMP 35.6; O2SAT 94; BMI 29.2
[2021-11-05] MEDS: Oxymetazoline 0.05% 1 SPRAY SPRAY.BTL 2 SPRAY NASAL (05:07)
--- NOTE | 2021-11-05 05:21 | EX.ED.DYSGE1 ---
HPI History of Present Illness Chief Complaint: Nosebleed Narrative Narrative: Patient is a 76-year-old female with past medical history of hypertension hyperlipidemia diabetes hypothyroidism and atrial fibrillation currently on Xarelto. She states that ever since she had to have hip surgery that she has had intermittent nosebleeds for no apparent reason. Patient states that this morning she woke a little after 2 AM and has had a persistent nosebleed for the past 3 hours. She denies any trauma prior to the bleeding beginning. She denies any lightheadedness or dizziness but as she cannot get the bleeding under control at home presents for evaluation [facility] Medical History Asthma COPD (chronic obstructive pulmonary disease) Depression Diabetes mellitus type II, controlled Edema Esophageal spasm Essential hypertension GERD (gastroesophageal reflux disease) Hiatal hernia History of basal cell carcinoma (BCC) History of DVT (deep vein thrombosis) History of pulmonary embolism Hyperlipidemia Hypothyroidism IBS (irritable bowel syndrome) Kidney disease Lumbar back pain Lung disease Obesity (BMI 30.0-34.9) JHONY (obstructive sleep apnea) Osteoarthritis Parkinsons disease Premature atrial contractions Seizure disorder Sleep apnea Symptomatic bradycardia Venous insufficiency Home Medications omeprazole 20 mg capsule,delayed release 20 mg PO DAILY ACID REFLUX 06/19/17 [History Last Taken 08/31/21] cholecalciferol (vitamin D3) 25 mcg (1,000 unit) tablet 5,000 unit PO DAILY SUPPLEMENT 07/28/17 [History Last Taken 08/30/21] rivaroxaban 20 mg tablet 20 mg PO DAILY 30 days #30 tabs 09/01/17 [History Last Taken 08/30/21] simvastatin 20 mg tablet 20 mg PO DAILY 90 days #90 tabs 09/01/17 [History Last Taken 08/30/21] albuterol sulfate 90 mcg/actuation aerosol inhaler 2 puff inhalation Q4H PRN Sob &/Or Wheezing 12/04/20 [History Last Taken Unknown] canagliflozin 300 mg tablet (Invokana) 300 mg PO QAM 12/04/20 [History Last Taken 08/31/21] duloxetine 60 mg capsule,delayed release 60 mg PO DAILY 12/04/20 [History Last Taken 08/30/21] spironolactone 50 mg tablet 50 mg PO DAILY #90 tabs 12/04/20 [Rx Last Taken 08/30/21] zinc gluconate 30 mg tablet 30 mg PO DAILY 12/04/20 [History Last Taken 08/30/21] furosemide 40 mg tablet 40 mg PO BID #180 tabs 01/18/21 [Rx Last Taken 08/31/21] inhalational spacing device (POCKET CHAMBER spacer) #1 ea 01/23/21 [Rx Last Taken Unknown] diphenhydramine HCl 25 mg capsule (Benadryl) 25 mg PO QHS PRN Insomnia 06/02/21 [History Last Taken 08/30/21] insulin glargine 100 unit/mL (3 mL) subcutaneous pen (Lantus Solostar U-100 Insulin) 40 unit subcut QAM 06/02/21 [History Last Taken 08/31/21] topiramate 25 mg tablet 50 mg PO BID 06/02/21 [History Last Taken 08/31/21] ascorbic acid (vitamin C) 500 mg tablet 500 mg PO DAILY SUPPLEMENT 08/31/21 [History Last Taken 08/30/21] levothyroxine 100 mcg tablet 100 mcg PO DAILY THYROID 08/31/21 [History Last Taken 08/31/21] lubiprostone 24 mcg capsule 24 mcg PO BIDCM 08/31/21 [History Last Taken 08/31/21] acetaminophen 500 mg tablet 1,000 mg PO Q8H PRN PRN fever or pain #30 tabs 09/06/21 [Rx Last Taken 08/30/21] hydrocodone-acetaminophen 5-325mg 5mg-325mg 1 tab PO Q4H PRN pain 5 days #20 tabs 10/23/21 [Rx Last Taken Unknown] Allergy/AdvReac Type Severity Reaction Status Date / Time nitrofurantoin Allergy Hives Verified 10/23/21 19:00 macrocrystalline [From Macrodantin] rosuvastatin [From Crestor] AdvReac Severe Muscle Verified 10/23/21 19:00 weakness colesevelam [From WelChol] AdvReac Intermediate nausea Verified 10/23/21 19:00 nitrofurantoin AdvReac Intermediate Hives Verified 10/23/21 19:00 [From Furadantin] metformin AdvReac Unknown Gi side Verified 10/23/21 19:00 effects [place]LE [place]REES Allergy Hives Uncoded 10/23/21 19:00 DAIRY AdvReac Upset Uncoded 10/23/21 19:00 Stomach Family History Father CAD (coronary artery disease) Diabetes Myocardial infarction Alzheimers disease Hypertension Parkinson's disease Cancer melanoma History of blood clots Mother Diabetes AAA (abdominal aortic aneurysm) Bleeding disorder Colon cancer Thyroid disorder Brother Multiple sclerosis Skin cancer Surgical History History of cholecystectomy History of lumbar fusion (~2012) History of Belkys fundoplication History of right hip replacement (~07/08/15) History of tonsillectomy and adenoidectomy Hx of hernia repair Hx of lumbar discectomy Social History Smoking Status: Never smoker alcohol intake: never substance use type: does not use diet: diabetic and gluten free caffeine: No what type of physical activity do you participate in: none seatbelt use: always do you feel safe at home: Yes ROS ROS ED Constitutional Constitutional ED: Denies chills or fever(s) Eyes Eyes: Denies blurry vision ENT ENT ED: Reports other Details: Positive nosebleed ; Denies sore throat Cardiovascular Cardiovascular: Denies chest pain Respiratory/Chest Respiratory/Chest: Denies cough or dyspnea Gastrointestinal Gastrointestinal: Denies abdominal pain, diarrhea, nausea or vomiting Genitourinary Genitourinary ED: Denies dysuria Musculoskeletal Musculoskeletal: Denies myalgias Integumentary Denies rash Neurologic Neurologic: Denies headache(s) or weakness Hematologic/Lymphatic Hematologic/Lymphatic: Reports easy bleeding and easy bruising EXAM Physical Exam Const Vital Signs: 11/05/21 04:48 Temperature 96.0 F L Temperature Source Temporal Pulse Rate 75 Respiratory Rate 18 Blood Pressure 125/70 H Blood Pressure Mean 88 Pulse Ox 94 Oxygen Delivery Method Room Air Positive well nourished and well developed General Appearance ED: well developed HEENT Reports moist mucous membranes HEENT Narrative: Patient has a persistent ooze of blood from the right nostril. There is a small amount of overflow bleeding noted within the left nostril. There is dried blood in the posterior pharynx but no active bleeding noted. The septum is friable and there is no obvious septal hematoma present Eyes PERRL and EOMs intact bilaterally General Eye ED: Negative for pale conjunctiva Neck supple Resp normal respiratory effort and clear to auscultation bilaterally Cardio regular rhythm Rate: other Other Details: Patient has an irregularly irregular rhythm with regular rate consistent with her history of atrial fibrillation Extremity normal to inspection Neuro oriented x3 and CN's II-XII intact bilaterally Sensorium / Orientation: alert Psych mental status grossly normal Skin no rashes or lesions noted MDM MDM MDM Narrative Medical decision making narrative: Patient presented to the ER awake and alert with stable vitals indicating that despite 3 hours of persistent right-sided nosebleed her blood volume is normal as she is not tachycardic or hypotensive. Therefore at this time I felt there was no need for imaging or laboratory studies. Patient had lidocaine with epinephrine and Afrin soaked cotton balls placed within bilateral naris. Despite this there was still persistent bleeding from the right nostril. Therefore the cotton balls were removed and the patient had a 5.5 cm rapid Rhino placed. Following application of this the patient did achieve good hemostasis. There is no overflow bleeding into the left nostril and no active bleeding noted in the posterior pharynx. 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, Atrial fibrillation Instructions: ED Epistaxis (Adult) Prescriptions: No Action omeprazole 20 mg capsule,delayed release(DR/EC) 20 mg PO DAILY rivaroxaban 20 mg tablet 20 mg PO DAILY 30 Days Qty: 30 Label Comments: TAKE 1 TABLET EVERY DAY simvastatin 20 mg tablet 20 mg PO DAILY 90 Days Qty: 90 Label Comments: TAKE 1 TABLET BY MOUTH EVERY DAY duloxetine 60 mg capsule,delayed release(DR/EC) 60 mg PO DAILY Invokana 300 mg tablet 300 mg PO QAM zinc gluconate 30 mg tablet 30 mg PO DAILY spironolactone 50 mg tablet 50 mg PO DAILY Qty: 90 2RF Lantus Solostar U-100 Insulin 100 unit/mL (3 mL) insulin pen 40 unit subcut QAM furosemide 40 mg tablet 40 mg PO BID Qty: 180 3RF topiramate 25 mg tablet 50 mg PO BID diphenhydramine HCl [Benadryl] 25 mg capsule 25 mg PO QHS PRN (Reason: Insomnia) albuterol sulfate 90 mcg/actuation HFA aerosol inhaler 2 puff inhalation Q4H PRN (Reason: Sob &/Or Wheezing) cholecalciferol (vitamin D3) 1,000 UNIT tablet 5,000 unit PO DAILY (DME) POCKET CHAMBER Spacer See Rx Instructions .ROUTE .MEDSUPPLY Qty: 1 0RF Rx Instructions: As directed levothyroxine 100 mcg tablet 100 mcg PO DAILY Label Comments: TAKE 1 TABLET BY MOUTH EVERY DAY ascorbic acid (vitamin C) 500 mg Tablet 500 mg PO DAILY lubiprostone 24 mcg capsule 24 mcg PO BIDCM Label Comments: Take 1 capsule by mouth twice daily with meals. acetaminophen 500 mg Tablet 1,000 mg PO Q8H PRN PRN (Reason: fever or pain) Qty: 30 0RF hydrocodone-acetaminophen 5-325 mg tablet 1 tab PO Q4H PRN (Reason: pain) 5 Days Qty: 20 0RF Primary Care Provider: Ramakrishna Rossi Referrals: Joss Herrera MD [STAFF PHYSICIAN] - 3-5 Days (For nasal packing removal) Ramakrishna Rossi MD [Primary Care Provider] - Activity Restrictions/Additional Instructions: Please keep your nasal packing in until reevaluated by ENT. You can continue your home medications as previously directed. If you have any further concerns or return of bleeding please return to the ER for repeat evaluation Disposition Disposition: Home, Self Care
[2021-11-05 06:34] VITALS: BP 124/70; PULSE 78; RESP 18; O2SAT 96
== END 2021-11-05 06:34 | disposition home or self-care (01) ==
PROVIDERS: Emergency Provider Emergency Medicine; PCP Family Medicine; Visit Provider Emergency Medicine
DX: R04.0 Epistaxis (principal); J44.9 Chronic obstructive pulmonary disease, unspecified; I48.91 Unspecified atrial fibrillation; E11.9 Type 2 diabetes mellitus without complications; E78.5 Hyperlipidemia, unspecified; Z79.01 Long term (current) use of anticoagulants; I10 Essential (primary) hypertension; E03.9 Hypothyroidism, unspecified; Z86.718 Personal history of other venous thrombosis and embolism; Z86.711 Personal history of pulmonary embolism
CPT/HCPCS: 30901; 99282

== ENCOUNTER → 2021-11-11 | Outpatient (CLI) | payer MEDICARE, SELFPAY ==
[2021-11-11 17:58] LABS: Absolute Lymphocyte Count 1.77 X10^3/uL (0.83-4.51); Absolute Neutrophil Count 8.3 X10^3/uL (2.0-7.7); Basophil# 0.08 X10^3/uL; Basophil% 0.7 % (0-1); Eosinophil# 0.11 X10^3/uL; Hematocrit 38.2 % (37-47); Hemoglobin 12.6 g/dL (12.0-15.0); Lymphocyte # 1.77 X10^3/ul (0.83-4.51); Mean Corpuscular Hgb 30.1 pg (27.0-32.0); Mean Corpuscular Volume 91.2 fL (81-99); Mean Platelet Vol. 9.9 fl (6.2-12.0); Monocyte# 0.73 X10^3/uL; Monocyte% 6.6 % (0-10); NRBC Flagged by Analyzer 0 % (0-5); Neutrophil # 8.29 X10^3/uL (2.7-7.7); Neutrophil % 75.2 % (47-70); Platelet Count 417 K/mm3 (150-450); RBC Distribution Width CV 13.4 % (11.6-14.6); RBC Distribution Width SD 44.5 fl (35.1-43.9); Red Blood Count 4.19 M/mm3 (4.2-5.4)
== END | disposition home or self-care (01) ==
LOC: MTLAB 14:44
PROVIDERS: PCP Family Medicine; Referring Provider Family Medicine; Visit Provider Family Medicine
DX: R04.0 Epistaxis (principal)
CPT/HCPCS: 36415; 85025

== ENCOUNTER 2021-11-15 10:10 | Emergency (ER) | payer MEDICARE, SELFPAY ==
[2021-11-15 10:11] VITALS: BP 125/78; PULSE 100; RESP 18; TEMP 36.6; O2SAT 99; BMI 27.8
--- NOTE | 2021-11-15 10:43 | EX.ED.DYSGE1 ---
HPI History of Present Illness Chief Complaint: Nosebleed Narrative Narrative: Patient presents with right epistaxis, she has had the same epistaxis for over a week. She has seen ENT. She is on Xarelto. She has no fevers chills cough or congestion she does not feel lightheaded. [facility] Medical History Asthma COPD (chronic obstructive pulmonary disease) Depression Diabetes mellitus type II, controlled Edema Esophageal spasm Essential hypertension GERD (gastroesophageal reflux disease) Hiatal hernia History of basal cell carcinoma (BCC) History of DVT (deep vein thrombosis) History of pulmonary embolism Hyperlipidemia Hypothyroidism IBS (irritable bowel syndrome) Kidney disease Lumbar back pain Lung disease New onset atrial fibrillation (11/05/21) Obesity (BMI 30.0-34.9) JHONY (obstructive sleep apnea) Osteoarthritis Parkinsons disease Premature atrial contractions Seizure disorder Sleep apnea Symptomatic bradycardia Venous insufficiency Home Medications omeprazole 20 mg capsule,delayed release 20 mg PO DAILY ACID REFLUX 06/19/17 [History Last Taken 08/31/21] cholecalciferol (vitamin D3) 25 mcg (1,000 unit) tablet 5,000 unit PO DAILY SUPPLEMENT 07/28/17 [History Last Taken 08/30/21] rivaroxaban 20 mg tablet 20 mg PO DAILY 30 days #30 tabs 09/01/17 [History Last Taken 08/30/21] simvastatin 20 mg tablet 20 mg PO DAILY 90 days #90 tabs 09/01/17 [History Last Taken 08/30/21] albuterol sulfate 90 mcg/actuation aerosol inhaler 2 puff inhalation Q4H PRN Sob &/Or Wheezing 12/04/20 [History Last Taken Unknown] canagliflozin 300 mg tablet (Invokana) 300 mg PO QAM 12/04/20 [History Last Taken 08/31/21] duloxetine 60 mg capsule,delayed release 60 mg PO DAILY 12/04/20 [History Last Taken 08/30/21] zinc gluconate 30 mg tablet 30 mg PO DAILY 12/04/20 [History Last Taken 08/30/21] furosemide 40 mg tablet 40 mg PO BID #180 tabs 01/18/21 [Rx Last Taken 08/31/21] inhalational spacing device (POCKET CHAMBER spacer) #1 ea 01/23/21 [Rx Last Taken Unknown] diphenhydramine HCl 25 mg capsule (Benadryl) 25 mg PO QHS PRN Insomnia 06/02/21 [History Last Taken 08/30/21] insulin glargine 100 unit/mL (3 mL) subcutaneous pen (Lantus Solostar U-100 Insulin) 40 unit subcut QAM 06/02/21 [History Last Taken 08/31/21] topiramate 25 mg tablet 50 mg PO BID 06/02/21 [History Last Taken 08/31/21] ascorbic acid (vitamin C) 500 mg tablet 500 mg PO DAILY SUPPLEMENT 08/31/21 [History Last Taken 08/30/21] levothyroxine 100 mcg tablet 100 mcg PO DAILY THYROID 08/31/21 [History Last Taken 08/31/21] lubiprostone 24 mcg capsule 24 mcg PO BIDCM 08/31/21 [History Last Taken 08/31/21] acetaminophen 500 mg tablet 1,000 mg PO Q8H PRN PRN fever or pain #30 tabs 09/06/21 [Rx Last Taken 08/30/21] hydrocodone-acetaminophen 5-325mg 5mg-325mg 1 tab PO Q4H PRN pain 5 days #20 tabs 10/23/21 [Rx Last Taken Unknown] spironolactone 50 mg tablet 50 mg PO DAILY #90 tabs 11/08/21 [Rx Last Taken Unknown] Allergy/AdvReac Type Severity Reaction Status Date / Time nitrofurantoin Allergy Hives Verified 11/15/21 10:12 macrocrystalline [From Macrodantin] rosuvastatin [From Crestor] AdvReac Severe Muscle Verified 11/15/21 10:12 weakness colesevelam [From WelChol] AdvReac Intermediate nausea Verified 11/15/21 10:12 nitrofurantoin AdvReac Intermediate Hives Verified 11/15/21 10:12 [From Furadantin] metformin AdvReac Unknown Gi side Verified 11/15/21 10:12 effects MAPLE TREES Allergy Hives Uncoded 11/15/21 10:12 DAIRY AdvReac Upset Uncoded 11/15/21 10:12 Stomach Family History Father CAD (coronary artery disease) Diabetes Myocardial infarction Alzheimers disease Hypertension Parkinson's disease Cancer melanoma History of blood clots Mother Diabetes AAA (abdominal aortic aneurysm) Bleeding disorder Colon cancer Thyroid disorder Brother Multiple sclerosis Skin cancer Surgical History History of cholecystectomy History of lumbar fusion (~2012) History of Belkys fundoplication History of right hip replacement (~07/08/15) History of tonsillectomy and adenoidectomy Hx of hernia repair Hx of lumbar discectomy Social History Smoking Status: Never smoker alcohol intake: never substance use type: does not use diet: diabetic and gluten free caffeine: No what type of physical activity do you participate in: none seatbelt use: always do you feel safe at home: Yes ROS ROS ED ROS Narrative Past medical history: Reviewed in [employer] Medications: Reviewed in [employer] includes Xarelto for A. fib Social history: Noncontributory Review of systems: All systems negative except as indicated General: No fever Eyes: No visual changes ENT: Right epistaxis Neck: No neck pain Cardiovascular: No chest pain, does not feel lightheaded Musculoskeletal: Denies myalgias no difficulty with ambulation Skin: No pallor Hematologic: Easy bruising and bleeding secondary to Xarelto EXAM Physical Exam Narrative Exam Narrative: Physical exam General: Well nourished, Well developed, No Acute Distress Head: Normocephalic, Atraumatic Eyes: Conjunctiva not pale ENT: Right anterior epistaxis seen in the anterior plexus. Neck: Supple, Nontender, No lymphadenopathy Cardiovascular: Regular rate, Regular rhythm Respiratory: No distress, CTA bilaterally Skin: No pallor normal color Neurological: Alert, Normal Strength, Normal Sensation Psychological: Normal affect Const Vital Signs: 11/15/21 10:11 Temperature 97.9 F Temperature Source Temporal Pulse Rate 100 Respiratory Rate 18 Blood Pressure 125/78 H Blood Pressure Mean 93 Pulse Ox 99 Oxygen Delivery Method Room Air MDM MDM MDM Narrative Medical decision making narrative: Nose was cauterized, otherwise patient is now back to normal she has normal vitals does not appear pale no blood work is needed. I will discharge her in stable condition with ENT follow-up. Procedures Other Procedures Procedure(s): Epistaxis treatment Verbal consent obtained I used silver nitrate to cauterize the right anterior plexus. Hemostasis achieved on reevaluation initially and about 10 minutes later. Patient tolerated procedure well. Discharge Plan Triage Chief Complaint: Nosebleed ED Provider: Baldomero Liu Dx/Rx/DC Orders Clinical Impression: Acute anterior epistaxis, A-fib Instructions: ED Epistaxis (Adult) Prescriptions: No Action omeprazole 20 mg capsule,delayed release(DR/EC) 20 mg PO DAILY rivaroxaban 20 mg tablet 20 mg PO DAILY 30 Days Qty: 30 Label Comments: TAKE 1 TABLET EVERY DAY simvastatin 20 mg tablet 20 mg PO DAILY 90 Days Qty: 90 Label Comments: TAKE 1 TABLET BY MOUTH EVERY DAY duloxetine 60 mg capsule,delayed release(DR/EC) 60 mg PO DAILY Invokana 300 mg tablet 300 mg PO QAM zinc gluconate 30 mg tablet 30 mg PO DAILY Lantus Solostar U-100 Insulin 100 unit/mL (3 mL) insulin pen 40 unit subcut QAM furosemide 40 mg tablet 40 mg PO BID Qty: 180 3RF topiramate 25 mg tablet 50 mg PO BID diphenhydramine HCl [Benadryl] 25 mg capsule 25 mg PO QHS PRN (Reason: Insomnia) albuterol sulfate 90 mcg/actuation HFA aerosol inhaler 2 puff inhalation Q4H PRN (Reason: Sob &/Or Wheezing) cholecalciferol (vitamin D3) 1,000 UNIT tablet 5,000 unit PO DAILY (DME) POCKET CHAMBER Spacer See Rx Instructions .ROUTE .MEDSUPPLY Qty: 1 0RF Rx Instructions: As directed levothyroxine 100 mcg tablet 100 mcg PO DAILY Label Comments: TAKE 1 TABLET BY MOUTH EVERY DAY ascorbic acid (vitamin C) 500 mg Tablet 500 mg PO DAILY lubiprostone 24 mcg capsule 24 mcg PO BIDCM Label Comments: Take 1 capsule by mouth twice daily with meals. acetaminophen 500 mg Tablet 1,000 mg PO Q8H PRN PRN (Reason: fever or pain) Qty: 30 0RF hydrocodone-acetaminophen 5-325 mg tablet 1 tab PO Q4H PRN (Reason: pain) 5 Days Qty: 20 0RF spironolactone 50 mg tablet 50 mg PO DAILY Qty: 90 2RF Primary Care Provider: Ramakrishna Rossi Referrals: Eric Oviedo MD [Med Staff - Active Staff] - 3-5 Days Ramakrishna Rossi MD [Primary Care Provider] - Disposition Disposition: Home, Self Care
== END 2021-11-15 11:11 | disposition home or self-care (01) ==
LOC: ED 10:57
PROVIDERS: Emergency Provider Emergency Medicine; PCP Family Medicine; Visit Provider Emergency Medicine
DX: R04.0 Epistaxis (principal); G20 Parkinson's disease; J44.9 Chronic obstructive pulmonary disease, unspecified; I48.91 Unspecified atrial fibrillation; G40.909 Epilepsy, unspecified, not intractable, without status epilepticus; E11.9 Type 2 diabetes mellitus without complications; Z79.4 Long term (current) use of insulin; E78.5 Hyperlipidemia, unspecified; I10 Essential (primary) hypertension; K21.9 Gastro-esophageal reflux disease without esophagitis; Z86.711 Personal history of pulmonary embolism; Z86.718 Personal history of other venous thrombosis and embolism; Z85.828 Personal history of other malignant neoplasm of skin; E03.9 Hypothyroidism, unspecified; K58.9 Irritable bowel syndrome, unspecified; G47.33 Obstructive sleep apnea (adult) (pediatric); E66.9 Obesity, unspecified; Z79.01 Long term (current) use of anticoagulants; Z79.899 Other long term (current) drug therapy; Z68.27 Body mass index [BMI] 27.0-27.9, adult
CPT/HCPCS: 30901

== ENCOUNTER 2021-11-15 21:22 | Emergency (ER) | payer MEDICARE, SELFPAY ==
[2021-11-15 21:23] VITALS: BP 121/70; PULSE 85; RESP 16; TEMP 36.8; O2SAT 98; BMI 27.8
[2021-11-15] MEDS: Mixture 30 ML Bottle 10 ML TOPICAL (21:40)
--- NOTE | 2021-11-15 21:51 | EDS_ITS ---
HPI History of Present Illness Chief Complaint: Nosebleed Detail of Chief Complaint: Epistaxis right side Informant: patient Onset/Context/Timing Onset: Today (Earlier this morning and recurred at 1999) Context: Sudden Onset Timing: Continuous Quality: Blood right naris Location: Right naris Current Severity: Mild Maximum Severity: Moderate Worsened by: Xarelto Relieved by: Pressure Associated Symptoms Associated Symptoms: None Narrative Narrative: Patient is a 76-year-old female on Xarelto for chronic A. fib. She was seen earlier today. The speculum on the right was cauterized with silver nitrate. Patient presents because of repeat occurrence. Patient states she was walking across the room when the bleeding started from the right side. She has no other symptoms or complaints Prior similar symptoms: Yes Recent Illness/Hospitalization: Yes PFSH PFS Medical History Asthma COPD (chronic obstructive pulmonary disease) Depression Diabetes mellitus type II, controlled Edema Esophageal spasm Essential hypertension GERD (gastroesophageal reflux disease) Hiatal hernia History of basal cell carcinoma (BCC) History of DVT (deep vein thrombosis) History of pulmonary embolism Hyperlipidemia Hypothyroidism IBS (irritable bowel syndrome) Kidney disease Lumbar back pain Lung disease New onset atrial fibrillation (11/05/21) Obesity (BMI 30.0-34.9) JHONY (obstructive sleep apnea) Osteoarthritis Parkinsons disease Premature atrial contractions Seizure disorder Sleep apnea Symptomatic bradycardia Venous insufficiency Home Medications omeprazole 20 mg capsule,delayed release 20 mg PO DAILY ACID REFLUX 06/19/17 [History Last Taken 08/31/21] cholecalciferol (vitamin D3) 25 mcg (1,000 unit) tablet 5,000 unit PO DAILY SUPPLEMENT 07/28/17 [History Last Taken 08/30/21] rivaroxaban 20 mg tablet 20 mg PO DAILY 30 days #30 tabs 09/01/17 [History Last Taken 08/30/21] simvastatin 20 mg tablet 20 mg PO DAILY 90 days #90 tabs 09/01/17 [History Last Taken 08/30/21] albuterol sulfate 90 mcg/actuation aerosol inhaler 2 puff inhalation Q4H PRN Sob &/Or Wheezing 12/04/20 [History Last Taken Unknown] canagliflozin 300 mg tablet (Invokana) 300 mg PO QAM 12/04/20 [History Last Taken 08/31/21] duloxetine 60 mg capsule,delayed release 60 mg PO DAILY 12/04/20 [History Last Taken 08/30/21] zinc gluconate 30 mg tablet 30 mg PO DAILY 12/04/20 [History Last Taken 08/30/21] furosemide 40 mg tablet 40 mg PO BID #180 tabs 01/18/21 [Rx Last Taken 08/31/21] inhalational spacing device (POCKET CHAMBER spacer) #1 ea 01/23/21 [Rx Last Taken Unknown] diphenhydramine HCl 25 mg capsule (Benadryl) 25 mg PO QHS PRN Insomnia 06/02/21 [History Last Taken 08/30/21] insulin glargine 100 unit/mL (3 mL) subcutaneous pen (Lantus Solostar U-100 Insulin) 40 unit subcut QAM 06/02/21 [History Last Taken 08/31/21] topiramate 25 mg tablet 50 mg PO BID 06/02/21 [History Last Taken 08/31/21] ascorbic acid (vitamin C) 500 mg tablet 500 mg PO DAILY SUPPLEMENT 08/31/21 [History Last Taken 08/30/21] levothyroxine 100 mcg tablet 100 mcg PO DAILY THYROID 08/31/21 [History Last Taken 08/31/21] lubiprostone 24 mcg capsule 24 mcg PO BIDCM 08/31/21 [History Last Taken 08/31/21] acetaminophen 500 mg tablet 1,000 mg PO Q8H PRN PRN fever or pain #30 tabs 09/06/21 [Rx Last Taken 08/30/21] hydrocodone-acetaminophen 5-325mg 5mg-325mg 1 tab PO Q4H PRN pain 5 days #20 tabs 10/23/21 [Rx Last Taken Unknown] spironolactone 50 mg tablet 50 mg PO DAILY #90 tabs 11/08/21 [Rx Last Taken Unknown] amoxicillin 500 mg tablet 500 mg PO TID #14 tabs 11/15/21 [Rx Last Taken Unknown] Allergy/AdvReac Type Severity Reaction Status Date / Time nitrofurantoin Allergy Hives Verified 11/15/21 21:27 macrocrystalline [From Macrodantin] rosuvastatin [From Crestor] AdvReac Severe Muscle Verified 11/15/21 21:27 weakness colesevelam [From WelChol] AdvReac Intermediate nausea Verified 11/15/21 21:27 nitrofurantoin AdvReac Intermediate Hives Verified 11/15/21 21:27 [From Furadantin] metformin AdvReac Unknown Gi side Verified 11/15/21 21:27 effects MAPLE TREES Allergy Hives Uncoded 11/15/21 21:27 DAIRY AdvReac Upset Uncoded 11/15/21 21:27 Stomach Family History Father CAD (coronary artery disease) Diabetes Myocardial infarction Alzheimers disease Hypertension Parkinson's disease Cancer melanoma History of blood clots Mother Diabetes AAA (abdominal aortic aneurysm) Bleeding disorder Colon cancer Thyroid disorder Brother Multiple sclerosis Skin cancer Surgical History History of cholecystectomy History of lumbar fusion (~2012) History of Belkys fundoplication History of right hip replacement (~07/08/15) History of tonsillectomy and adenoidectomy Hx of hernia repair Hx of lumbar discectomy Social History Smoking Status: Never smoker alcohol intake: never substance use type: does not use diet: diabetic and gluten free caffeine: No what type of physical activity do you participate in: none seatbelt use: always do you feel safe at home: Yes ROS ROS ED Constitutional Constitutional ED: Denies chills, fever(s), subjective, sweats or weight loss Eyes Eyes: Denies blurry vision, change in vision or diplopia ENT ENT ED: Reports other Details: Epistaxis right. ; Denies ear pain, rhinorrhea or sore throat Cardiovascular Cardiovascular: Reports palpitations and other Details: Denies orthostatic symptoms Respiratory/Chest Respiratory/Chest: Reports dyspnea and dyspnea on exertion Hematologic/Lymphatic Hematologic/Lymphatic: Reports easy bleeding, easy bruising and other Details: Patient anticoagulant EXAM Physical Exam Const Vital Signs: 11/15/21 21:23 Temperature 98.3 F Temperature Source Temporal Pulse Rate 85 Respiratory Rate 16 Blood Pressure 121/70 H Blood Pressure Mean 87 Pulse Ox 98 Oxygen Delivery Method Room Air Positive well nourished and well developed General Appearance ED: well developed and NAD; Negative for cyanotic, diaphoretic or pallor HEENT Reports moist mucous membranes HEENT Narrative: Teeth normal. Nares revealed blood anteriorly on the right. There is no blood in the posterior pharynx. Uvula is midline. Eyes PERRL and EOMs intact bilaterally General Eye ED: Negative for pale conjunctiva or scleral icterus Neck no lymphadenopathy, supple and no JVD Resp normal respiratory effort Cardio regular rate and no murmurs Rhythm: abnormal rhythm irregularly irregular (Irregularly irregular consistent with history of A. fib) Extremity normal to inspection Neuro oriented x3, CN's II-XII intact bilaterally and no sensory deficits noted Sensorium / Orientation: alert Motor Exam: strength 5/5 throughout Psych mental status grossly normal Skin no rashes or lesions noted General Skin Exam: Negative for jaundice or pallor MDM MDM MDM Narrative Medical decision making narrative: Patient with recurrent epistaxis right. There is bleeding noted over Treva box plexus. There is area of cauterization noted. She has seen Dr. Eric Shore and Dr. Mina Chambers in the past. She states she bleeds several times per week. Nose anesthetized with [place] solution. Will place anterior Rhino Rocket and have her follow-u with otolaryngology in the next 3 to 5 days. She was placed on antibiotic. Procedures Other Procedures Procedure(s): He right naris was numbed as previously described. A 5.5 cm rapid Rhino was placed. Patient tolerated procedure well. There is no further bleeding. She was discharged home with prescription for amoxicillin to follow- up with ENT. Discharge Plan Triage Chief Complaint: Nosebleed ED Provider: Baljeet Fang Dx/Rx/DC Orders Clinical Impression: Acute anterior epistaxis, Anticoagulant long-term use, Atrial fibrillation, chronic Instructions: ED Epistaxis (Adult) Prescriptions: New amoxicillin 500 mg tablet 500 mg PO TID Qty: 14 0RF No Action omeprazole 20 mg capsule,delayed release(DR/EC) 20 mg PO DAILY rivaroxaban 20 mg tablet 20 mg PO DAILY 30 Days Qty: 30 Label Comments: TAKE 1 TABLET EVERY DAY simvastatin 20 mg tablet 20 mg PO DAILY 90 Days Qty: 90 Label Comments: TAKE 1 TABLET BY MOUTH EVERY DAY duloxetine 60 mg capsule,delayed release(DR/EC) 60 mg PO DAILY Invokana 300 mg tablet 300 mg PO QAM zinc gluconate 30 mg tablet 30 mg PO DAILY Lantus Solostar U-100 Insulin 100 unit/mL (3 mL) insulin pen 40 unit subcut QAM furosemide 40 mg tablet 40 mg PO BID Qty: 180 3RF topiramate 25 mg tablet 50 mg PO BID diphenhydramine HCl [Benadryl] 25 mg capsule 25 mg PO QHS PRN (Reason: Insomnia) albuterol sulfate 90 mcg/actuation HFA aerosol inhaler 2 puff inhalation Q4H PRN (Reason: Sob &/Or Wheezing) cholecalciferol (vitamin D3) 1,000 UNIT tablet 5,000 unit PO DAILY (DME) POCKET CHAMBER Spacer See Rx Instructions .ROUTE .MEDSUPPLY Qty: 1 0RF Rx Instructions: As directed levothyroxine 100 mcg tablet 100 mcg PO DAILY Label Comments: TAKE 1 TABLET BY MOUTH EVERY DAY ascorbic acid (vitamin C) 500 mg Tablet 500 mg PO DAILY lubiprostone 24 mcg capsule 24 mcg PO BIDCM Label Comments: Take 1 capsule by mouth twice daily with meals. acetaminophen 500 mg Tablet 1,000 mg PO Q8H PRN PRN (Reason: fever or pain) Qty: 30 0RF hydrocodone-acetaminophen 5-325 mg tablet 1 tab PO Q4H PRN (Reason: pain) 5 Days Qty: 20 0RF spironolactone 50 mg tablet 50 mg PO DAILY Qty: 90 2RF Primary Care Provider: Ramakrishna Rossi Referrals: Eric Oviedo MD [Med Staff - Active Staff] - 3-5 Days Ramakrishna Rossi MD [Primary Care Provider] - Disposition Disposition: Home, Self Care
[2021-11-15] MEDS: AMOXICILLIN 500 MG CAPSULE PO (22:05)
[2021-11-15 22:25] VITALS: RESP 18
== END 2021-11-15 22:32 | disposition home or self-care (01) ==
PROVIDERS: Emergency Provider Emergency Medicine; PCP Family Medicine; Visit Provider Emergency Medicine
DX: R04.0 Epistaxis (principal); I48.20 Chronic atrial fibrillation, unspecified; G47.33 Obstructive sleep apnea (adult) (pediatric); Z86.718 Personal history of other venous thrombosis and embolism; Z79.01 Long term (current) use of anticoagulants
CPT/HCPCS: 30901; 99282; 99283

== ENCOUNTER 2022-03-22 04:06 | Emergency (ER) | payer MEDICARE, SELFPAY ==
[2022-03-22 04:06] VITALS: BP 163/83; PULSE 91; RESP 22; TEMP 37.6; O2SAT 96; BMI 28.8
[2022-03-22 04:10] VITALS: BP 163/83; PULSE 87; RESP 22; TEMP 37.6; O2SAT 96
--- NOTE | 2022-03-22 04:37 | EKG12_ITS ---
Test Reason : DYSRHYTHMIA Blood Pressure : / mmHG Vent. Rate : 091 BPM Atrial Rate : 091 BPM P-R Int : 182 ms QRS Dur : 090 ms QT Int : 342 ms P-R-T Axes : -01 015 036 degrees QTc Int : 420 ms Sinus rhythm with Premature supraventricular complexes Nonspecific ST and T wave abnormality Abnormal ECG Confirmed by ANAY VILLA, GILDA ([id number]), department editor HILDA EVERETT ([id number]) on 03/24/2022 9:33:27 AM Referred By: BRIAN Confirmed By:GILDA CUEVA MD
--- NOTE | 2022-03-22 04:38 | EDS_ITS ---
HPI History of Present Illness Chief Complaint: Shortness of Breath Informant: patient and spouse/S.O. Narrative Narrative: 3-day history of worsening cough dyspnea and wheeze. Temp of 99 yesterday. No myalgias. History of COPD and sleep apnea. No home oxygen. History of paroxysmal A. fib PE and DVT has medications of Eliquis. Has been off Eliquis due to nosebleed in January followed by Dr. Tidwell. States had cauterization on follow-up. She has been having sinus congestion for 3 weeks was placed on a Z-Terrence 7 days ago finished it 2 days ago. She is a diabetic. Has not checked her sugars in last couple days. Wheezing at home. Vaccinated for COVID. Prior similar symptoms: Yes PFSH PFSH Medical History Asthma COPD (chronic obstructive pulmonary disease) Depression Diabetes mellitus type II, controlled Edema Esophageal spasm Essential hypertension GERD (gastroesophageal reflux disease) Hiatal hernia History of basal cell carcinoma (BCC) History of DVT (deep vein thrombosis) History of pulmonary embolism Hyperlipidemia Hypothyroidism IBS (irritable bowel syndrome) Kidney disease Lumbar back pain Lung disease Obesity (BMI 30.0-34.9) JHONY (obstructive sleep apnea) Osteoarthritis Parkinsons disease Premature atrial contractions Seizure disorder Sleep apnea Symptomatic bradycardia Venous insufficiency Home Medications omeprazole 20 mg capsule,delayed release 20 mg PO DAILY ACID REFLUX 06/19/17 [History Last Taken 08/31/21] cholecalciferol (vitamin D3) 25 mcg (1,000 unit) tablet 5,000 unit PO DAILY SUPPLEMENT 07/28/17 [History Last Taken 08/30/21] simvastatin 20 mg tablet 20 mg PO DAILY 90 days #90 tabs 09/01/17 [History Last Taken 08/30/21] albuterol sulfate 90 mcg/actuation aerosol inhaler 2 puff inhalation Q4H PRN Sob &/Or Wheezing 12/04/20 [History Last Taken Unknown] canagliflozin 300 mg tablet (Invokana) 300 mg PO QAM 12/04/20 [History Last Taken 08/31/21] duloxetine 60 mg capsule,delayed release 60 mg PO DAILY 12/04/20 [History Last Taken 08/30/21] zinc gluconate 30 mg tablet 30 mg PO DAILY 12/04/20 [History Last Taken 08/30/21] furosemide 40 mg tablet 40 mg PO BID #180 tabs 01/18/21 [Rx Last Taken 08/31/21] inhalational spacing device (POCKET CHAMBER spacer) #1 ea 01/23/21 [Rx Last Taken Unknown] diphenhydramine HCl 25 mg capsule (Benadryl) 25 mg PO QHS PRN Insomnia 06/02/21 [History Last Taken 08/30/21] insulin glargine 100 unit/mL (3 mL) subcutaneous pen (Lantus Solostar U-100 Insulin) 40 unit subcut QAM 06/02/21 [History Last Taken 08/31/21] topiramate 25 mg tablet 50 mg PO BID 06/02/21 [History Last Taken 08/31/21] ascorbic acid (vitamin C) 500 mg tablet 500 mg PO DAILY SUPPLEMENT 08/31/21 [History Last Taken 08/30/21] levothyroxine 100 mcg tablet 100 mcg PO DAILY THYROID 08/31/21 [History Last Taken 08/31/21] lubiprostone 24 mcg capsule 24 mcg PO BIDCM 08/31/21 [History Last Taken 08/31/21] acetaminophen 500 mg tablet 1,000 mg PO Q8H PRN PRN fever or pain #30 tabs 09/06/21 [Rx Last Taken 08/30/21] hydrocodone-acetaminophen 5-325mg 5mg-325mg 1 tab PO Q4H PRN pain 5 days #20 tabs 10/23/21 [Rx Last Taken Unknown] spironolactone 50 mg tablet 50 mg PO DAILY #90 tabs 11/08/21 [Rx Last Taken Unknown] apixaban 5 mg tablet (Eliquis) 5 mg PO BID #60 tabs 11/25/21 [Rx Last Taken Unknown] ondansetron 4 mg disintegrating tablet 4 mg PO Q6H PRN nausea and vomiting #10 tabs 03/22/22 [Rx Last Taken Unknown] oseltamivir 75 mg capsule (Tamiflu) 75 mg PO BID 5 days #10 caps 03/22/22 [Rx Last Taken Unknown] prednisone 20 mg tablet 40 mg PO DAILY #10 tabs 03/22/22 [Rx Last Taken Unknown] Allergy/AdvReac Type Severity Reaction Status Date / Time nitrofurantoin Allergy Hives Verified 03/22/22 04:12 macrocrystalline [From Macrodantin] rosuvastatin [From Crestor] AdvReac Severe Muscle Verified 03/22/22 04:12 weakness colesevelam [From WelChol] AdvReac Intermediate nausea Verified 03/22/22 04:12 nitrofurantoin AdvReac Intermediate Hives Verified 03/22/22 04:12 [From Furadantin] metformin AdvReac Unknown Gi side Verified 03/22/22 04:12 effects milk [dairy] AdvReac Upset Verified 03/22/22 04:12 Stomach MAPLE TREES Allergy Hives Uncoded 03/22/22 04:12 Family History Father CAD (coronary artery disease) Diabetes Myocardial infarction Alzheimers disease Hypertension Parkinson's disease Cancer melanoma History of blood clots Mother Diabetes AAA (abdominal aortic aneurysm) Bleeding disorder Colon cancer Thyroid disorder Brother Multiple sclerosis Skin cancer Surgical History History of cholecystectomy History of lumbar fusion (~2012) History of Belkys fundoplication History of right hip replacement (~07/08/15) History of tonsillectomy and adenoidectomy Hx of hernia repair Hx of lumbar discectomy Social History Smoking Status: Never smoker alcohol intake: never substance use type: does not use diet: diabetic and gluten free caffeine: No what type of physical activity do you participate in: none seatbelt use: always do you feel safe at home: Yes ROS ROS ED Constitutional Constitutional ED: Denies chills, fever(s) or sweats Eyes Eyes: Denies change in vision ENT ENT ED: Denies dysphagia or sore throat Cardiovascular Cardiovascular: Denies chest pain, leg edema, palpitations or racing heartbeat Respiratory/Chest Respiratory/Chest: Reports cough and dyspnea; Denies dyspnea on exertion Gastrointestinal Gastrointestinal: Denies abdominal pain, diarrhea, nausea or vomiting Genitourinary Genitourinary ED: Denies dysuria, hematuria or urinary frequency Musculoskeletal Musculoskeletal: Denies back pain, extremity pain or neck pain Integumentary Denies rash or wounds Neurologic Neurologic: Denies headache(s), paresthesias or weakness EXAM Physical Exam Const Vital Signs: 03/22/22 04:06 03/22/22 04:10 03/22/22 04:49 Temperature 99.7 F H 99.7 F H Temperature Source Oral Oral Pulse Rate 91 87 Respiratory Rate 22 H 22 H Respiratory Effort Short of Breath Labored Respiratory Depth Normal Respiratory Pattern Normal Blood Pressure 163/83 H 163/83 H Blood Pressure Mean 109 109 Pulse Ox 96 96 Oxygen Delivery Method Room Air Room Air 03/22/22 04:43 03/22/22 04:43 03/22/22 06:24 Temperature Temperature Source Pulse Rate 93 100 Respiratory Rate 24 H 24 H 27 H Respiratory Effort Non-Labored Short of Breath Respiratory Depth Shallow Respiratory Pattern Tachypnea Tachypnea Blood Pressure 167/59 H Blood Pressure Mean Pulse Ox 94 95 Oxygen Delivery Method Room Air Positive well nourished and well developed Constitutional Narrative: Occasional coughing. No respiratory distress. General Appearance ED: well developed and NAD HEENT Reports moist mucous membranes normocephalic and atraumatic Eyes PERRL, EOMs intact bilaterally and conjunctivae normal General Eye ED: Yes normal appearance of both eyes Neck no lymphadenopathy and supple General: Negative for tenderness Chest Wall Chest: Negative for tenderness Resp normal respiratory effort Resp Narrative: Diminished breath sounds bilateral bases. Effort and Inspection: symmetric chest movement; Negative for respiratory distress Cardio regular rate, regular rhythm and no murmurs Peripheral Pulses: pulses 2+ throughout GI normal to inspection, nondistended, normoactive bowel sounds and non-tender Palpation: Negative for guarding or rebound tenderness present Back/Spine no CVA tenderness and no thoracic nor lumbar tenderness Extremity normal to inspection General Extremety ED: Negative for edema or tenderness General Extremity: Negative for edema Neuro oriented x3 and no sensory deficits noted Sensorium / Orientation: awake and alert Skin no rashes or lesions noted and no wounds MDM MDM MDM Narrative Medical decision making narrative: Patient with slightly elevated temperature on arrival pulse ox 96% on room air. No respiratory distress. COPD history. Work-up with labs White count 13 creatinine 0.9. Hemoglobin 14. Chest x-ray reviewed by myself and read by radiology shows showed no acute process. Rapid COVID-negative influenza returned positive for influenza A. States 3 of symptoms she has multiple core morbidities. Discussed antiviral treatment side effects. She would like this started. Meds to beds for Tamiflu along with prednisone for her COPD. She will monitor her glucose. It was 216 in the lab. Prescription for Zofran in case side effects are nausea and vomiting. Return precaution discussed. All questions were answered. Lab Data Attestation: I reviewed the patient's lab results. Labs: Laboratory Results - last 24 hr 03/22/22 03/22/22 04:44 04:44 WBC 13.3 H RBC 4.71 Hgb 14.2 Hct 42.7 MCV 90.7 MCH 30.1 MCHC 33.3 RDW Std Deviation 43.3 RDW Coeff of Basilio 13.1 Plt Count 291 MPV 9.2 Immature Gran % (Auto) 0.400 Neut % (Auto) 85.6 H Lymph % (Auto) 6.0 L [place] % (Auto) 6.6 Eos % (Auto) 0.9 Baso % (Auto) 0.5 Absolute Neuts (auto) 11.4 H Absolute Lymphs (auto) 0.80 L Nucleated RBC % 0 Sodium 139 Potassium 3.3 L Chloride 100 Carbon Dioxide 32.0 Anion Gap 7 BUN 12 Creatinine 0.90 Estim Creat Clear Calc 45.61 Est GFR (MDRD) Af Amer 77 Est GFR (MDRD) Non-Af 64 BUN/Creatinine Ratio 13.3 Glucose 216 H Calcium 9.7 Radiography Diagnostic Testing: Clinical Impression(s) from Imaging Studies Chest X-Ray 03/22/22 05:35 IMPRESSION: Stable large hiatal hernia. Electronically Signed: Gael Mcgrath MD at 6:03 EST , EKG Initial EKG: Attestation: I personally reviewed and interpreted this EKG as follows: Comments: Sinus rate of 91, no ST or T wave changes. PACs noted. Discharge Plan Triage Chief Complaint: Shortness of Breath ED Provider: Dilip Hurley Dx/Rx/DC Orders Clinical Impression: Influenza A, COPD exacerbation, Cough Instructions: Discharge Instructions: COPD, ED Influenza (Adult) Prescriptions: New oseltamivir [Tamiflu] 75 mg capsule 75 mg PO BID 5 Days Qty: 10 0RF prednisone 20 mg tablet 40 mg PO DAILY Qty: 10 0RF ondansetron 4 mg tablet,disintegrating 4 mg PO Q6H PRN (Reason: nausea and vomiting) Qty: 10 0RF No Action omeprazole 20 mg capsule,delayed release(DR/EC) 20 mg PO DAILY simvastatin 20 mg tablet 20 mg PO DAILY 90 Days Qty: 90 Label Comments: TAKE 1 TABLET BY MOUTH EVERY DAY duloxetine 60 mg capsule,delayed release(DR/EC) 60 mg PO DAILY Invokana 300 mg tablet 300 mg PO QAM zinc gluconate 30 mg tablet 30 mg PO DAILY Lantus Solostar U-100 Insulin 100 unit/mL (3 mL) insulin pen 40 unit subcut QAM furosemide 40 mg tablet 40 mg PO BID Qty: 180 3RF topiramate 25 mg tablet 50 mg PO BID diphenhydramine HCl [Benadryl] 25 mg capsule 25 mg PO QHS PRN (Reason: Insomnia) Eliquis 5 mg tablet 5 mg PO BID Qty: 60 3RF albuterol sulfate 90 mcg/actuation HFA aerosol inhaler 2 puff inhalation Q4H PRN (Reason: Sob &/Or Wheezing) cholecalciferol (vitamin D3) 1,000 UNIT tablet 5,000 unit PO DAILY (DME) POCKET CHAMBER Spacer See Rx Instructions .ROUTE .MEDSUPPLY Qty: 1 0RF Rx Instructions: As directed levothyroxine 100 mcg tablet 100 mcg PO DAILY Label Comments: TAKE 1 TABLET BY MOUTH EVERY DAY ascorbic acid (vitamin C) 500 mg Tablet 500 mg PO DAILY lubiprostone 24 mcg capsule 24 mcg PO BIDCM Label Comments: Take 1 capsule by mouth twice daily with meals. acetaminophen 500 mg Tablet 1,000 mg PO Q8H PRN PRN (Reason: fever or pain) Qty: 30 0RF hydrocodone-acetaminophen 5-325 mg tablet 1 tab PO Q4H PRN (Reason: pain) 5 Days Qty: 20 0RF spironolactone 50 mg tablet 50 mg PO DAILY Qty: 90 2RF Primary Care Provider: Ramakrishna Rossi Referrals: Ramakrishna Rossi MD [Primary Care Provider] - Activity Restrictions/Additional Instructions: COVID-negative. Positive for influenza A. Glucose 216. Take Tamiflu as prescribed. Prednisone as prescribed monitor your glucose. Follow-up with your doctor. Return if any worsening symptoms. Disposition Disposition: Home, Self Care Discharge Date/Time: 03/22/22 06:48
[2022-03-22 04:43] VITALS: PULSE 93; RESP 24; O2SAT 94
[2022-03-22] MEDS: Ipratropium/Albuterol Sulfate 3 ML AMPUL.NEB INHALATION (04:43)
[2022-03-22 04:49] LABS: Absolute Neutrophil Count 11.4 X10^3/uL (2.0-7.7); Basophil# 0.06 X10^3/uL; Basophil% 0.5 % (0-1); Eosinophil# 0.12 X10^3/uL; Eosinophils% 0.9 % (0-5); Hematocrit 42.7 % (37-47); Hemoglobin 14.2 g/dL (12.0-15.0); Mean Corp Hgb Conc 33.3 g/dL (32-36); Mean Corpuscular Hgb 30.1 pg (27.0-32.0); Mean Corpuscular Volume 90.7 fL (81-99); Mean Platelet Vol. 9.2 fl (6.2-12.0); Monocyte# 0.87 X10^3/uL; Monocyte% 6.6 % (0-10); NRBC Flagged by Analyzer 0 % (0-5); Neutrophil # 11.38 X10^3/uL (2.7-7.7); Neutrophil % 85.6 % (47-70); Platelet Count 291 K/mm3 (150-450); RBC Distribution Width CV 13.1 % (11.6-14.6); RBC Distribution Width SD 43.3 fl (35.1-43.9); Red Blood Count 4.71 M/mm3 (4.2-5.4); White Blood Count 13.3 K/mm3 (4.4-11.0)
[2022-03-22 05:01] LABS: Anion Gap 7 (5-15); BUN 12 mg/dL (7-18); BUN/Creat Ratio 13.3 RATIO (10-20); Calcium,Total 9.7 mg/dL (8.5-10.1); Chloride 100 mmol/L (98-107); EST Glomerular Filtration Rate 64 mL/min (>60); Est Glom Filt Rate - Afr Amer 77 mL/min (>60); Estimated Creatinine Clearance 45.61 ml/min; Glucose 216 mg/dL (74-106); Potassium 3.3 mmol/L (3.5-5.1); Sodium Level 139 mmol/L (136-145)
--- NOTE | 2022-03-22 05:35 | RAD_ITS ---
INDICATION: cough EXAMINATION/TECHNIQUE: X-RAY - AP and lateral views chest COMPARISON: 2 view chest x-ray from 10/23/2021 FINDINGS: LINES/DEVICES: None. LUNGS: Persistent large retrocardiac opacity compatible with hiatal hernia. No overt pulmonary edema or focal airspace consolidation. No sizable pleural effusion. No detectable pneumothorax. MEDIASTINUM AND CARDIOVASCULAR STRUCTURES: Heart size within normal limits for imaging technique. Atherosclerotic calcifications along aorta. BONES AND SOFT TISSUES: Skeletal degenerative changes. RAD/Chest PA and Lateral IMPRESSION: Stable large hiatal hernia. Electronically Signed: Gael Mcgrath MD at 6:03 EST ,
[2022-03-22 06:24] VITALS: BP 167/59; PULSE 100; RESP 27; O2SAT 95
== END 2022-03-22 06:48 | disposition home or self-care (01) ==
PROVIDERS: Emergency Provider Emergency Medicine; PCP Family Medicine; Visit Provider Emergency Medicine
DX: J10.1 Influenza due to other identified influenza virus with other respiratory manifestations (principal); J44.1 Chronic obstructive pulmonary disease with (acute) exacerbation; E11.9 Type 2 diabetes mellitus without complications; E78.5 Hyperlipidemia, unspecified; I10 Essential (primary) hypertension; R06.02 Shortness of breath; Z79.52 Long term (current) use of systemic steroids; Z20.822 Contact with and (suspected) exposure to COVID-19
CPT/HCPCS: 71046; 80048; 85025; 87428; 93005; 94640; 99251; 99284; G0463

== ENCOUNTER → 2022-03-31 | Outpatient (CLI) | payer MEDICARE, SELFPAY ==
--- NOTE | 2022-03-31 13:13 | RAD_ITS ---
INDICATION: CRACKLES, PNEUMONIA EXAMINATION/TECHNIQUE: X-RAY - XR Chest 2 Views COMPARISON: 03/22/2022. FINDINGS: Questionable subtle right lower lobe patchy opacities. Tortuous and calcified thoracic aorta. The heart is not enlarged. Large hiatal hernia. No pleural effusion or pneumothorax. Degenerative changes of the thoracic spine. Partially visualized posterior fusion hardware in the upper lumbar spine. RAD/Chest PA and Lateral IMPRESSION: Questionable subtle right lower lobe patchy opacities could represent pneumonia in the correct clinical setting.. Electronically Signed: Mina Funes MD at 22:03 [facility] ,
== END | disposition home or self-care (01) ==
PROVIDERS: PCP Family Medicine; Referring Provider Family Medicine; Visit Provider Family Medicine
DX: J18.9 Pneumonia, unspecified organism (principal); I77.1 Stricture of artery; Z98.1 Arthrodesis status; K44.9 Diaphragmatic hernia without obstruction or gangrene
CPT/HCPCS: 71046

== ENCOUNTER 2022-04-12 18:55 | Inpatient (IN) | payer MEDICARE, SELFPAY ==
[2022-04-12] VITALS (7 sets, daily range): BP systolic 113–146; BP diastolic 51–72; PULSE 63–113; RESP 12–18; TEMP 36.6–37.2; O2SAT 94–97; BMI 25.7; BMI 26.4
--- NOTE | 2022-04-12 19:54 | EDS_ITS ---
HPI History of Present Illness Chief Complaint: Shortness of Breath Narrative Narrative: Patient presenting with cough and shortness of breath. She states that she is been sick for about 6 weeks. She initially had influenza a in the beginning March. She was treated as an outpatient for COPD exacerbation at that time and was given prednisone, Tamiflu. She follow-up with PCP who did a follow-up chest x-ray which showed questionable right lower lobe pneumonia. She believes she finished a full course of Z-Terrence. She still having cough, generalized weakness, intermittent nausea. Previously tried Zofran but is not on that she is taking it. She also reports she is not doing breathing treatments at home. She has not had any fever. She states that she is just having difficulty eating although she reports she had eggs this morning, some cranberry fluff in the afternoon and had some carrots tonight. patient is anticoagulated on Xarelto for history of PE. She does report that she had recurrent epistaxis and her nose had to be packed. She did follow-up with ENT. She has not had any problems with epistaxis since then. She reports that she has been on her Eliquis again for the last month and a half. She has not had any black or bloody stools. [facility] Medical History Asthma COPD (chronic obstructive pulmonary disease) Depression Diabetes mellitus type II, controlled Edema Esophageal spasm Essential hypertension GERD (gastroesophageal reflux disease) Hiatal hernia History of basal cell carcinoma (BCC) History of DVT (deep vein thrombosis) History of pulmonary embolism Hyperlipidemia Hypothyroidism IBS (irritable bowel syndrome) Kidney disease Lumbar back pain Lung disease Obesity (BMI 30.0-34.9) JHONY (obstructive sleep apnea) Osteoarthritis Parkinsons disease Premature atrial contractions Seizure disorder Sleep apnea Symptomatic bradycardia Venous insufficiency Home Medications omeprazole 20 mg capsule,delayed release 20 mg PO DAILY ACID REFLUX 06/19/17 [History Last Taken 08/31/21] cholecalciferol (vitamin D3) 25 mcg (1,000 unit) tablet 5,000 unit PO DAILY SUPPLEMENT 07/28/17 [History Last Taken 08/30/21] simvastatin 20 mg tablet 20 mg PO QHS 90 days #90 tabs 09/01/17 [History Last Taken 08/30/21] albuterol sulfate 90 mcg/actuation aerosol inhaler 2 puff inhalation Q4H PRN Sob &/Or Wheezing 12/04/20 [History Last Taken Unknown] canagliflozin 300 mg tablet (Invokana) 300 mg PO QAM 12/04/20 [History Last Taken 08/31/21] duloxetine 60 mg capsule,delayed release 60 mg PO DAILY 12/04/20 [History Last Taken 08/30/21] zinc gluconate 30 mg tablet 30 mg PO DAILY 12/04/20 [History Last Taken 08/30/21] furosemide 40 mg tablet 40 mg PO BID #180 tabs 01/18/21 [Rx Last Taken 08/31/21] inhalational spacing device (POCKET CHAMBER spacer) #1 ea 01/23/21 [Rx Last Taken Unknown] diphenhydramine HCl 25 mg capsule (Benadryl) 25 mg PO QHS PRN Insomnia 06/02/21 [History Last Taken 08/30/21] insulin glargine 100 unit/mL (3 mL) subcutaneous pen (Lantus Solostar U-100 Insulin) 40 unit subcut QAM 06/02/21 [History Last Taken 08/31/21] topiramate 25 mg tablet 50 mg PO BID 06/02/21 [History Last Taken 08/31/21] ascorbic acid (vitamin C) 500 mg tablet 500 mg PO DAILY SUPPLEMENT 08/31/21 [History Last Taken 08/30/21] levothyroxine 100 mcg tablet 100 mcg PO DAILY THYROID 08/31/21 [History Last Taken 08/31/21] lubiprostone 24 mcg capsule 24 mcg PO BIDCM 08/31/21 [History Last Taken 08/31/21] spironolactone 50 mg tablet 50 mg PO DAILY #90 tabs 11/08/21 [Rx Last Taken Unknown] apixaban 5 mg tablet (Eliquis) 5 mg PO BID #60 tabs 11/25/21 [Rx Last Taken Unknown] ondansetron 4 mg disintegrating tablet 4 mg PO Q6H PRN nausea and vomiting #10 tabs 03/22/22 [Rx Last Taken Unknown] acetaminophen 500 mg tablet 1,000 mg PO Q4H PRN fever or pain 04/12/22 [History Last Taken Unknown] pramipexole 1 mg tablet 1 mg PO BID 04/12/22 [History Last Taken Unknown] rivaroxaban 20 mg tablet 20 mg PO DAILY 04/12/22 [History Last Taken Unknown] Allergy/AdvReac Type Severity Reaction Status Date / Time nitrofurantoin Allergy Hives Verified 04/12/22 18:56 macrocrystalline [From Macrodantin] rosuvastatin [From Crestor] AdvReac Severe Muscle Verified 04/12/22 18:56 weakness colesevelam [From WelChol] AdvReac Intermediate nausea Verified 04/12/22 18:56 nitrofurantoin AdvReac Intermediate Hives Verified 04/12/22 18:56 [From Furadantin] metformin AdvReac Unknown Gi side Verified 04/12/22 18:56 effects milk [dairy] AdvReac Upset Verified 04/12/22 18:56 Stomach MAPLE TREES Allergy Hives Uncoded 04/12/22 18:56 Family History Father CAD (coronary artery disease) Diabetes Myocardial infarction Alzheimers disease Hypertension Parkinson's disease Cancer melanoma History of blood clots Mother Diabetes AAA (abdominal aortic aneurysm) Bleeding disorder Colon cancer Thyroid disorder Brother Multiple sclerosis Skin cancer Surgical History History of cholecystectomy History of lumbar fusion (~2012) History of Belkys fundoplication History of right hip replacement (~07/08/15) History of tonsillectomy and adenoidectomy Hx of hernia repair Hx of lumbar discectomy Social History Smoking Status: Never smoker alcohol intake: never substance use type: does not use diet: diabetic and gluten free caffeine: No what type of physical activity do you participate in: none seatbelt use: always do you feel safe at home: Yes ROS ROS ED Constitutional Constitutional ED: Denies chills, fever(s) or sweats Eyes Eyes: Denies blurry vision or change in vision ENT ENT ED: Reports rhinorrhea; Denies ear pain or sore throat Cardiovascular Cardiovascular: Denies chest pain, palpitations or racing heartbeat Respiratory/Chest Respiratory/Chest: Reports cough and dyspnea; Denies sputum Gastrointestinal Gastrointestinal: Denies abdominal pain, constipation, diarrhea, nausea or vomiting Genitourinary Genitourinary ED: Denies dysuria, hematuria or urinary frequency Musculoskeletal Musculoskeletal: Denies arthralgias, myalgias or neck pain Integumentary Denies abscess, Abrasions or rash Neurologic Neurologic: Denies headache(s), paresthesias or weakness Psychiatric Psychiatric: Denies anxiety, depression, suicidal ideation or suicidal thoughts Endocrine Endocrinology: Denies polydipsia or polyuria EXAM Physical Exam Const Vital Signs: 04/12/22 18:56 04/12/22 20:19 04/12/22 21:22 Temperature 98 F Temperature Source Temporal Pulse Rate 113 H 63 90 Respiratory Rate 14 16 15 Blood Pressure 113/53 L 117/51 L 117/68 Blood Pressure Mean 73 73 84 Pulse Ox 97 95 96 Oxygen Delivery Method Room Air Room Air Room Air Positive well nourished General Appearance ED: NAD HEJUAN Reports moist mucous membranes Negative for atraumatic Eyes PERRL and EOMs intact bilaterally Resp normal respiratory effort and clear to auscultation bilaterally Auscultation: Negative for rales, rhonchi or wheezes Cardio regular rhythm Rate: tachycardic GI non-tender Extremity normal to inspection General Extremety ED: Negative for edema General Extremity: Negative for edema Neuro oriented x3 and CN's II-XII intact bilaterally Sensorium / Orientation: alert Motor Exam: strength 5/5 throughout Psych mental status grossly normal Skin no wounds MDM MDM MDM Narrative Medical decision making narrative: Patient presenting with cough, generalized weakness. She is not had a fever. She reports this cough started yesterday. It appears that in the beginning of the month that she was treated for COPD exacerbation and discharged home with prednisone, Tamiflu as she tested positive for influenza A. Does appear after looking the medical record she was given a Z-Terrence as well. Patient followed up with her PCP and on the had a repeat chest x-ray which showed a questionable right lower lobe infiltrate she was on Levaquin and finished this course. Her symptoms have now returned. Although she has a history of COPD she does not appear wheezy. She is not hypoxic and when she ambulates her pulse ox remains the same. CBC shows leukocytosis of 16.0. Hemoglobin are stable. Platelets are normal. Renal function is normal however the patient's potassium is 1.9. I did order a magnesium level which was normal at 2.4. Patient was given 40 mEq of potassium IV and p.o. in the emergency room. Urinalysis negative for infection. Chest x-ray on my interpretation shows right-sided infiltrates. Patient has been on 2 courses of antibiotics. Given the failure of outpatient biotics and a hypokalemia feel she benefit from admission. I spoke with hospitalist regarding patient because her potassium is 1.9 she will need to go to the ICU. Patient stable on transfer to the floor. Impression: 1. Pneumonia 2. Leukocytosis 3. Hypokalemia Lab Data Attestation: I reviewed the patient's lab results. Labs: Laboratory Results - last 24 hr 04/12/22 04/12/22 04/12/22 20:00 20:00 20:00 WBC 16.0 H RBC 4.72 Hgb 13.7 Hct 42.1 MCV 89.2 MCH 29.0 MCHC 32.5 RDW Std Deviation 43.7 RDW Coeff of Basilio 13.3 Plt Count 275 MPV 9.2 Immature Gran % (Auto) 1.400 H Neut % (Auto) 78.1 H Lymph % (Auto) 10.0 L [place] % (Auto) 8.4 Eos % (Auto) 1.5 Baso % (Auto) 0.6 Absolute Neuts (auto) 12.5 H Absolute Lymphs (auto) 1.60 Nucleated RBC % 0.2 Sodium 139 Potassium 1.9 L* Chloride 98 Carbon Dioxide 33.0 H Anion Gap 8 BUN 11 Creatinine 0.82 Estim Creat Clear Calc 50.06 Est GFR (MDRD) Af Amer 86 Est GFR (MDRD) Non-Af 71 BUN/Creatinine Ratio 13.4 Glucose 147 H Calcium 9.0 Magnesium 2.4 Urine Color Urine Clarity Urine pH Ur Specific [place] Urine Protein Urine Glucose (UA) Urine Ketones Urine Occult Blood Urine Nitrite Urine Bilirubin Urine Urobilinogen Ur Leukocyte Esterase Urine RBC Urine WBC Ur Squamous Epith Cells Urine Bacteria Urine Mucus Urine Yeast 04/12/22 21:00 WBC RBC Hgb Hct MCV MCH MCHC RDW Std Deviation RDW Coeff of Basilio Plt Count MPV Immature Gran % (Auto) Neut % (Auto) Lymph % (Auto) [place] % (Auto) Eos % (Auto) Baso % (Auto) Absolute Neuts (auto) Absolute Lymphs (auto) Nucleated RBC % Sodium Potassium Chloride Carbon Dioxide Anion Gap BUN Creatinine Estim Creat Clear Calc Est GFR (MDRD) Af Amer Est GFR (MDRD) Non-Af BUN/Creatinine Ratio Glucose Calcium Magnesium Urine Color Straw Urine Clarity Cloudy Urine pH 6.5 Ur Specific [place] 1.010 Urine Protein Negative Urine Glucose (UA) 1000 H Urine Ketones Negative Urine Occult Blood 10 H Urine Nitrite Negative Urine Bilirubin Negative Urine Urobilinogen Normal Ur Leukocyte Esterase 500 H Urine RBC 0 SEEN Urine WBC 10-25 SEEN Ur Squamous Epith Cells 5-10 SEEN Urine Bacteria 2+ Urine Mucus 0 SEEN Urine Yeast 3+ Radiography Diagnostic Testing: Clinical Impression(s) from Imaging Studies Chest X-Ray 04/12/22 20:10 IMPRESSION: Question patchy densities in the lateral aspect of the right midlung. Electronically Signed: Zelalem Oliva DO at 20:26 EST Reading Location ID and State: [address] [place] [address] Tel [phone], Service support , Discharge Plan Triage Chief Complaint: Shortness of Breath ED Provider: Thomas Alegre Dx/Rx/DC Orders Prescriptions: No Action omeprazole 20 mg capsule,delayed release(DR/EC) 20 mg PO DAILY simvastatin 20 mg tablet 20 mg PO QHS 90 Days Qty: 90 Label Comments: TAKE 1 TABLET BY MOUTH EVERY DAY duloxetine 60 mg capsule,delayed release(DR/EC) 60 mg PO DAILY Invokana 300 mg tablet 300 mg PO QAM zinc gluconate 30 mg tablet 30 mg PO DAILY Lantus Solostar U-100 Insulin 100 unit/mL (3 mL) insulin pen 40 unit subcut QAM furosemide 40 mg tablet 40 mg PO BID Qty: 180 3RF topiramate 25 mg tablet 50 mg PO BID diphenhydramine HCl [Benadryl] 25 mg capsule 25 mg PO QHS PRN (Reason: Insomnia) Eliquis 5 mg tablet 5 mg PO BID Qty: 60 3RF albuterol sulfate 90 mcg/actuation HFA aerosol inhaler 2 puff inhalation Q4H PRN (Reason: Sob &/Or Wheezing) cholecalciferol (vitamin D3) 1,000 UNIT tablet 5,000 unit PO DAILY (DME) POCKET CHAMBER Spacer See Rx Instructions .ROUTE .MEDSUPPLY Qty: 1 0RF Rx Instructions: As directed levothyroxine 100 mcg tablet 100 mcg PO DAILY Label Comments: TAKE 1 TABLET BY MOUTH EVERY DAY ascorbic acid (vitamin C) 500 mg Tablet 500 mg PO DAILY lubiprostone 24 mcg capsule 24 mcg PO BIDCM Label Comments: Take 1 capsule by mouth twice daily with meals. ondansetron 4 mg tablet,disintegrating 4 mg PO Q6H PRN (Reason: nausea and vomiting) Qty: 10 0RF acetaminophen 500 mg tablet 1,000 mg PO Q4H PRN (Reason: fever or pain) pramipexole 1 mg Tablet 1 mg PO BID rivaroxaban 20 mg Tablet 20 mg PO DAILY Rx Instructions: must administer with evening meal spironolactone 50 mg tablet 50 mg PO DAILY Qty: 90 2RF Primary Care Provider: Ramakrishna Rossi Referrals: Ramakrishna Rossi MD [Primary Care Provider] -
[2022-04-12] MEDS: Ondansetron 4 MG/2 ML Vial IV (20:03)
[2022-04-12] MEDS: 0.9% Normal Saline 1,000 ML 999 ML IV (20:04)
[2022-04-12 20:07] LABS: Absolute Neutrophil Count 12.5 X10^3/uL (2.0-7.7); Basophil% 0.6 % (0-1); Eosinophil# 0.24 X10^3/uL; Eosinophils% 1.5 % (0-5); Hematocrit 42.1 % (37-47); Hemoglobin 13.7 g/dL (12.0-15.0); Mean Corp Hgb Conc 32.5 g/dL (32-36); Mean Corpuscular Volume 89.2 fL (81-99); Mean Platelet Vol. 9.2 fl (6.2-12.0); Monocyte# 1.34 X10^3/uL; Monocyte% 8.4 % (0-10); NRBC Flagged by Analyzer 0.2 % (0-5); Neutrophil % 78.1 % (47-70); Platelet Count 275 K/mm3 (150-450); RBC Distribution Width CV 13.3 % (11.6-14.6); RBC Distribution Width SD 43.7 fl (35.1-43.9); Red Blood Count 4.72 M/mm3 (4.2-5.4)
--- NOTE | 2022-04-12 20:10 | RAD_ITS ---
STUDY: X-RAY CHEST REASON FOR EXAM: Female, 77 years old. Cough for 6 months which is worsened over the last few days. History of asthma and COPD. TECHNIQUE: Single AP portable view of the chest. COMPARISON: March 31, 2022. FINDINGS: Findings well-expanded. There is vague densities laterally in the right midlung lungs are otherwise clear. There is no demonstrated pleural abnormality. Normal size heart. Normal mediastinum and roderick. Normal visualized pulmonary arteries. There is atherosclerotic calcification of the aortic arch with tortuosity. Normal visualized thoracic spine. Normal visualized ribs, clavicles, and shoulders. Retrocardiac hiatal hernia. RAD/Chest 1 View (Portable) IMPRESSION: Question patchy densities in the lateral aspect of the right midlung. Electronically Signed: Zelalem Oliva DO at 20:26 EST ,
[2022-04-12 20:36] LABS: Anion Gap 8 (5-15); BUN 11 mg/dL (7-18); BUN/Creat Ratio 13.4 RATIO (10-20); Chloride 98 mmol/L (98-107); Creatinine, Serum 0.82 mg/dL (0.55-1.02); EST Glomerular Filtration Rate 71 mL/min (>60); Est Glom Filt Rate - Afr Amer 86 mL/min (>60); Estimated Creatinine Clearance 50.06 ml/min; Glucose 147 mg/dL (74-106); Potassium 1.9 mmol/L (3.5-5.1); Sodium Level 139 mmol/L (136-145)
[2022-04-12 21:02] LABS: Magnesium 2.4 mg/dL (1.6-2.6)
[2022-04-12 21:06] LABS: Mucous, Urine 0 SEEN /hpf (<or=2+); Red Blood Cells-Urine 0 SEEN /hpf (0-5)
[2022-04-12 21:08] LABS: Color, Urine Straw (Yellow); Glucose, Dipstick 1000 mg/dl (Normal); Ketone-Dipstick Negative (Negative); Leukocyte Esterase-Dipstick 500 /ul (Negative); Nitrite-Dipstick Negative (Negative); Occult Blood-Urine 10 /ul (Negative); Protein-Dipstick Negative (Negative); Urine Bilirubin Dipstick Negative (Negative); Urine Clarity Cloudy (Clear); Urine Urobilinogen Normal (Normal); Urine pH 6.5 (5.0 - 8.0)
[2022-04-12] MEDS: Potassium Chloride Oral Tablet 20 MEQ 40 MEQ PO (21:38)
[2022-04-12] MEDS: Potassium Chloride 10mEq/100mL 10 MEQ/100 ML IV.SOLN. 100 MEQ IV BOLUS ×2 (21:52→23:16)
--- NOTE | 2022-04-12 21:53 | HP.PCM.HOS_ITS ---
HPI - General General Date of Admission: 04/12/22 Date of Service: 04/12/22 Chief Complaint: Dyspnea, cough, weakness. HPI Narrative The patient is a 77 y/o F w/ PMHx: Asthma/COPD, Depression and Anxiety, Hx VTE, GERD s/p Belkys, Diabetes mellitus type II, Hypothyroidism, IBS, CKD stage II, JHONY, Seizure disorder, Parkinson's disease who presents to the [facility] ED on 04/12/22 with history of 6-week history of persistent issues with cough and dyspnea with history of initially influenza A in the beginning of March treated outpatient with also concurrent COPD exacerbation at that time with administration of both prednisone and Tamiflu with PCP follow-up with questionable right lower lobe pneumonia with administration of a Z-Terrence and pote ntially even a Levaquin course however despite this she is still having a cough, fatigue, malaise, generalized weakness as well as nausea without improvement with Zofran with no associated fevers with poor intake prompt eventual ED evaluation. She does state that she has had issues with recurrent bloody noses and has had to be packed previously with outpatient ENT follow-up reporting that she has been off her Eliquis for the last month and a half as a result but recently restarted. Also, she does report a history of loose stools following her recent abx therapy, but this has been improving since completion and she notes she did have a nearly formed stool on day of presentation. Work-up in the ED included T 98, heart rate 113, BP 113/53, respiratory rate 14, 97% on room air, CBC with WBC 16, hemoglobin 13.7, platelet 275 with left shift, BMP with potassium 1.9, carbon dioxide 33, glucose 147, magnesium 2.4, urinalysis with specific remedy 1.010, glucose 1000, negative ketone, leukocyte Estrace 500, urine WBC 10-25, urine bacteria 2+, chest x-ray with questionable patchy densities in the lateral aspect of the right midlung, SARS COVID rapid negative. In the ED patient ministered normal saline 1 L bolus, Zofran 4 mg IV x1, potassium 40 mill equivalent p.o. x1 and IV also. [facility] Medical History Asthma COPD (chronic obstructive pulmonary disease) Depression Diabetes mellitus type II, controlled Edema Esophageal spasm Essential hypertension GERD (gastroesophageal reflux disease) Hiatal hernia History of basal cell carcinoma (BCC) History of DVT (deep vein thrombosis) History of pulmonary embolism Hyperlipidemia Hypothyroidism IBS (irritable bowel syndrome) Kidney disease Lumbar back pain Lung disease Obesity (BMI 30.0-34.9) JHONY (obstructive sleep apnea) Osteoarthritis Parkinsons disease Premature atrial contractions Seizure disorder Sleep apnea Symptomatic bradycardia Venous insufficiency Home Medications omeprazole 20 mg capsule,delayed release 20 mg PO DAILY ACID REFLUX 06/19/17 [History Last Taken 08/31/21] cholecalciferol (vitamin D3) 25 mcg (1,000 unit) tablet 5,000 unit PO DAILY SUPPLEMENT 07/28/17 [History Last Taken 08/30/21] simvastatin 20 mg tablet 20 mg PO QHS 90 days #90 tabs 09/01/17 [History Last Ta ed 08/30/21] albuterol sulfate 90 mcg/actuation aerosol inhaler 2 puff inhalation Q4H PRN Sob &/Or Wheezing 12/04/20 [History Last Taken Unknown] canagliflozin 300 mg tablet (Invokana) 300 mg PO QAM 12/04/20 [History Last Taken 08/31/21] duloxetine 60 mg capsule,delayed release 60 mg PO DAILY 12/04/20 [History Last Taken 08/30/21] zinc gluconate 30 mg tablet 30 mg PO DAILY 12/04/20 [History Last Taken 08/30/21] furosemide 40 mg tablet 40 mg PO BID #180 tabs 01/18/21 [Rx Last Taken 08/31/21] inhalational spacing device (POCKET CHAMBER spacer) #1 ea 01/23/21 [Rx Last Taken Unknown] diphenhydramine HCl 25 mg capsule (Benadryl) 25 mg PO QHS PRN Insomnia 06/02/21 [History Last Taken 08/30/21] insulin glargine 100 unit/mL (3 mL) subcutaneous pen (Lantus Solostar U-100 Insulin) 40 unit subcut QAM 06/02/21 [History Last Taken 08/31/21] topiramate 25 mg tablet 50 mg PO BID 06/02/21 [History Last Taken 08/31/21] ascorbic acid (vitamin C) 500 mg tablet 500 mg PO DAILY SUPPLEMENT 08/31/21 [History Last Taken 08/30/21] levothyroxine 100 mcg tablet 100 mcg PO DAILY THYROID 08/31/21 [History Last Taken 08/31/21] lubiprostone 24 mcg capsule 24 mcg PO BIDCM 08/31/21 [History Last Taken 08/31/21] spironolactone 50 mg tablet 50 mg PO DAILY #90 tabs 11/08/21 [Rx Last Taken Unknown] apixaban 5 mg tablet (Eliquis) 5 mg PO BID #60 tabs 11/25/21 [Rx Last Taken Unknown] ondansetron 4 mg disintegrating tablet 4 mg PO Q6H PRN nausea and vomiting #10 tabs 03/22/22 [Rx Last Taken Unknown] acetaminophen 500 mg tablet 1,000 mg PO Q4H PRN fever or pain 04/12/22 [History Last Taken Unknown] pramipexole 1 mg tablet 1 mg PO BID 04/12/22 [History Last Taken Unknown] rivaroxaban 20 mg tablet 20 mg PO DAILY 04/12/22 [History Last Taken Unknown] Allergy/AdvReac Type Severity Reaction Status Date / Time nitrofurantoin Allergy Hives Verified 04/12/22 18:56 macrocrystalline [From Macrodantin] rosuvastatin [From Crestor] AdvReac Severe Muscle Verified 04/12/22 18:56 weakness colesevelam [From WelChol] AdvReac Intermediate nausea Verified 04/12/22 18:56 nitrofurantoin AdvReac Intermediate Hives Verified 04/12/22 18:56 [From Furadantin] metformin AdvReac Unknown Gi side Verified 04/12/22 18:56 effects milk [dairy] AdvReac Upset Verified 04/12/22 18:56 Stomach MAPLE TREES Allergy Hives Uncoded 04/12/22 18:56 Family History Father CAD (coronary artery disease) Diabetes Myocardial infarction Alzheimers disease Hypertension Parkinson's disease Cancer melanoma History of blood clots Mother Diabetes AAA (abdominal aortic aneurysm) Bleeding disorder Colon cancer Thyroid disorder Brother Multiple sclerosis Skin cancer Surgical History History of cholecystectomy History of lumbar fusion (~2012) History of Belkys fundoplication History of right hip replacement (~07/08/15) History of tonsillectomy and adenoidectomy Hx of hernia repair Hx of lumbar discectomy Social History Smoking Status: Never smoker alcohol intake: never substance use type: does not use diet: diabetic and gluten free caffeine: No what type of physical activity do you participate in: none seatbelt use: always do you feel safe at home: Yes ROS ROS Narrative Admission Review of Systems: CONSTITUTIONAL: No weight loss, + fever, chills, weakness or fatigue. HEENT: + congestion, rhinorrhea, sore throat. Eyes: No visual loss, blurred vision, double vision or yellow sclerae. Ears, Nose, Throat: No hearing loss, sneezing. SKIN: No rash or itching, lesions, wounds. CARDIOVASCULAR: No chest pain, chest pressure or chest discomfort, palpitations, edema, orthopnea, syncopal events. RESPIRATORY: + shortness of breath, cough, wheezing, No marked sputum, hemoptysis. GASTROINTESTINAL: + anorexia, nausea without vomiting, diarrhea, No abdominal pain, melena, BRBPR. GENITOURINARY: No dysuria, frequency, urgency or retention. NEUROLOGICAL: No headache, dizziness, syncope, paralysis, ataxia, numbness or tingling in the extremities, focal weakness, change in bowel or bladder control, seizure. MUSCULOSKELETAL: + muscle, back pain, joint pain or stiffness. HEMATOLOGIC: No anemia, bleeding or bruising. LYMPHATICS: No enlarged nodes. No history of splenectomy. PSYCHIATRIC: + history of depression or anxiety. ENDOCRINOLOGIC: No reports of sweating, cold or heat intolerance. No polyuria or polydipsia. ALLERGIES: + history of asthma, hives. Vital Signs Vital Signs Vital Signs: 04/12/22 18:56 04/12/22 20:19 04/12/22 21:22 Temperature 98 F Temperature Source Temporal Pulse Rate 113 H 63 90 Respiratory Rate 14 16 15 Blood Pressure 113/53 L 117/51 L 117/68 Blood Pressure Mean 73 73 84 Pulse Ox 97 95 96 Oxygen Delivery Method Room Air Room Air Room Air Weight Weight: 155 lb Body Mass Index (BMI) 25.7 Physical Exam Narrative Physical Examination: General: Awake, alert, oriented x 3 and cooperative, seated upright in the ED bed, fatigued and ill-appearing, intermittent coughing. Skin: Normal color, normal turgor, no icterus, no cyanosis. HEENT: AT/NC, EOMI, PERRLA, mildly dry MM, no carotid bruits or JVD noted. Lungs: Diminished, greater bases, right greater than left, mildly rhonchorous, coughing with deep inspiratory effort, no specific rales or wheezing. Heart: Mildly tachycardic with regular rhythm; no gallop, rub audible. Abdomen: Soft, overweight, NTTP, ND, distant mildly hyperactive BS, no HSM. Extremities: No cyanosis, clubbing, or edema. Neurological: Patient awake, alert, oriented as noted, cognitive function intact; pupils equally reactive to light and accommodation, cranial nerves II- XII grossly normal, moving all 4 extremities, no focal deficits, strength moderately global decrease secondary to acute presentation. Psychiatric: Affect appears fatigued, ill-appearing, no acute evidence of depr essive or anxiety feelings. Results Lab / Micro Data Result Diagrams: 04/12/22 20:00 04/12/22 20:00 Labs: Laboratory Results - last 24 hr 04/12/22 20:00: WBC 16.0 H, RBC 4.72, Hgb 13.7, Hct 42.1, MCV 89.2, MCH 29.0, MCHC 32.5, RDW Std Deviation 43.7, RDW Coeff of Basilio 13.3, Plt Count 275, MPV 9.2, Immature Gran % (Auto) 1.400 H, Neut % (Auto) 78.1 H, Lymph % (Auto) 10.0 L , [place] % (Auto) 8.4, Eos % (Auto) 1.5, Baso % (Auto) 0.6, Absolute Neuts (auto) 12.5 H, Absolute Lymphs (auto) 1.60, Nucleated RBC % 0.2 04/12/22 20:00: Sodium 139, Potassium 1.9 L*, Chloride 98, Carbon Dioxide 33.0 H , Anion Gap 8, BUN 11, Creatinine 0.82, Estim Creat Clear Calc 50.06, Est GFR (MDRD) Af Amer 86, Est GFR (MDRD) Non-Af 71, BUN/Creatinine Ratio 13.4, Glucose 147 H, Calcium 9.0 04/12/22 20:00: Magnesium 2.4 04/12/22 21:00: Urine Color Straw, Urine Clarity Cloudy, Urine pH 6.5, Ur Specific [place] 1.010, Urine Protein Negative, Urine Glucose (UA) 1000 H, Urine Ketones Negative, Urine Occult Blood 10 H, Urine Nitrite Negative, Urine Bilirubin Negative, Urine Urobilinogen Normal, Ur Leukocyte Esterase 500 H Micro: Microbiology 04/12/22 21:15 Nasal Secretion SARS-CoV-2 Antigen (Rapid) - Final Radiology Impression Chest X-Ray 04/12/22 20:10 IMPRESSION: Question patchy densities in the lateral aspect of the right midlung. Electronically Signed: Zelalem Oliva, at 20:26 EST Reading Location ID and State: [address] [place] [address] Tel [phone], Service support , Assessment & Plan Assessment/Plan (1) Pneumonia: PLAN: Plan The patient is a 77 y/o F w/ PMHx: Asthma/COPD, Depression and Anxiety, Hx VTE, GERD s/p Belkys, Diabetes mellitus type II, Hypothyroidism, IBS, CKD stage II, JHONY, Seizure disorder, Parkinson's disease who presents to the [facility] ED on 04/12/22 with history of 6-week history of persistent issues with cough and dyspnea with history of initially influenza A in the beginning of March treated outpatient with also concurrent COPD exacerbation at that time with administration of both prednisone and Tamiflu with PCP follow-up with questionable right lower lobe pneumonia with administration of a Z-Terrence and potentially even a Levaquin course however despite this she is still having a cough, fatigue, malaise, generalized weakness as well as nausea without improvement with Zofran with no associated fevers with poor intake prompt eventual ED evaluation. #1. Right Midlung Pneumonia w/ recent prior Influenza A, failed outpatient antibiotic therapy as well as possible concurrent Acute Viral Syndrome: Will admit to the ICU per protocol given K level, will transition off ICU status once K appropriate, maintain on telemetry, continue treatments as noted #2, maintain on oxygen with wean as tolerated to room air, continue ATC duonebs, PRN albuterol, maintained on IV Zosyn and Vancomycin given failed outpatient abx therapies but to be cautious will also obtain CT chest to further assess noted infiltrate given prolonged timeline, MRSA screen pending w/ de-escalation as able, will maintain on lactobacillius and cdiff/enteric requested as reported history of diarrhea but has resolved per patient over last 3 days, HOB, IS parameters w/ pending sputum culture, full respiratory viral panel and urine antigens. #2. Severe hypokalemia: Admission potassium 1.9, in the ED administered 40 mill equivalent IV as well as 40 mill equivalent p.o., magnesium level 2.4 per ED, will plan repeat BMP following completion of current regimen per ED, will maintain on telemetry monitoring to be cautious, low threshold to repeat EKGs. #3. Chronic COPD/Asthma: Will maintain on oxygen with wean as tolerated to room air, will hold home inhalers and transition in the interim to ATC duonebs, PRN albuterol, HOB, IS parameters. #4. Hypertension: Continue home regimen including spironolactone, Lasix with alterations as needed, PRN hydralazine. #5. Hyperlipidemia: We will continue patient on statin therapy. #6. History of VTE: Patient with history DVT, PE, patient with recent episodes with epistaxis and patient transiently had her home Eliquis held for the last 1.5, now restarted. #7. Hypothyroidism: We will continue patient home levothyroxine regimen. #8. Anxiety and depression: We will continue patient home duloxetine regimen. #9. Diabetes mellitus type II: Hold oral home regimen, continue patient on insulin regimen, ADA/gluten-free diet, accu checks w/ ISS. #10. Chronic Kidney Disease Stage II: Admission BUN/Cr 11/0.82, baseline renal function appears primarily 0.7-0.9, repeat BMP in AM. #11. Parkinson's disease: Will continue patient home pramipexole regimen. #12. Seizure disorder: We will continue patient home topiramate regimen #13. Chronic IBS: We will continue patient home lubiprostone regimen. #14. GERD: Status post Belkys fundoplication, continue patient on PPI #15. JHONY: CPAP nightly prior, but using recently secondary to recent epistaxis issues. #16. DVT prophylaxis: SCDs, patient with recent episodes with epistaxis and patient transiently had her home Eliquis held for the last 1.5, now restarted. #17. CODE status: Patient HCPOA is the patient's and living will is currently in place. Discussed CODE status at length including difference between FULL code, DNR-CCA and DNR-CC status. Following discussions about the differences in these status, requested Full Code status. Advanced Care Planning Face to Face Time: 16 minutes. Charges/Coding Visit Charges Inpatient E&M: 98663 Init Hosp L3 Procedures Hospitalists Procedures: 43295 Advncd Care Plan 30 Min
[2022-04-12 21:54] LABS: Squamous Epithelial Cells - UA 5-10 SEEN /hpf (5-10)
[2022-04-12 21:55] LABS: Bacteria 2+ /hpf (None Seen); Yeast-Urine 3+ /hpf (None Seen)
[2022-04-12 21:56] LABS: White Blood Cells 10-25 SEEN /hpf (0-5)
[2022-04-13] VITALS (30 sets, daily range): BP systolic 99–141; BP diastolic 55–95; PULSE 62–95; RESP 12–27; TEMP 36.7–36.9; O2SAT 88–100
[2022-04-13] MEDS: 0.9% Normal Saline 1,000 ML 100 ML IV (00:09)
[2022-04-13] MEDS: Potassium Chloride 10mEq/100mL 10 MEQ/100 ML IV.SOLN. 100 MEQ IV BOLUS ×10 (00:14→15:48)
--- NOTE | 2022-04-13 01:17 | PCM.RX.CS ---
Consult Pharmacy has been consulted to manage selected antiobiotic: Vancomycin Type of Consult: New start Suspected Infection: Pneumonia Prior Doses of Antibiotics Received/Current Regimen: Medications Vancomycin HCl 750 mg/ Sodium (Chloride) 265 mls @ 250 mls/hr IV Q12H JCARLOS Vancomycin HCl 1,750 mg/ (Sodium Chloride) 535 mls @ 250 mls/hr IV X1 ONE Stop: 04/13/22 01:38 Last Admin: 04/13/22 00:21 Dose: 250 mls/hr Labs: Sodium 139 mmol/L (136-145) 04/12/22 20:00 Potassium 1.9 mmol/L (3.5-5.1) L* 04/12/22 20:00 Chloride 98 mmol/L (98-107) 04/12/22 20:00 Carbon Dioxide 33.0 mmol/L (21.0-32.0) H 04/12/22 20:00 Anion Gap 8 (5-15) 04/12/22 20:00 BUN 11 mg/dL (7-18) 04/12/22 20:00 Creatinine 0.82 mg/dL (0.55-1.02) 04/12/22 20:00 Est GFR (MDRD) Af Amer 86 mL/min (>60) 04/12/22 20:00 Est GFR (MDRD) Non-Af 71 mL/min (>60) 04/12/22 20:00 BUN/Creatinine Ratio 13.4 RATIO (10-20) 04/12/22 20:00 Glucose 147 mg/dL (74-106) H 04/12/22 20:00 Microbiology: Microbiology 04/12/22 21:15 Nasal Secretion SARS-CoV-2 Antigen (Rapid) - Final Weight used for dosin.3 kg Estimated Creatinine Clearance: 50 Goal Trough: 15-20 mcg/mL Pharmacy Plan for Drug Dosing: Pharmacy Service will continue to monitor and adjust dosing as required. Follow-Up Labs: Trough Vancomycin Labs to be done on [date and time ordered]: 04/14/22 @1200
[2022-04-13] MEDS: Ipratropium/Albuterol Sulfate 3 ML AMPUL.NEB INHALATION ×4 (01:45→19:04)
[2022-04-13] MEDS: 0.9% Saline Lock 10 ML Syringe IV ×3 (02:05→22:11)
[2022-04-13 02:46] LABS: M R Staph aureus DNA By PCR Negative (Negative); Probe Check PASS; Specimen Processing Control PASS
[2022-04-13 03:36] LABS: Absolute Lymphocyte Count 1.53 X10^3/uL (0.83-4.51); Basophil# 0.08 X10^3/uL; Basophil% 0.6 % (0-1); Eosinophil# 0.18 X10^3/uL; Eosinophils% 1.3 % (0-5); Hematocrit 36.8 % (37-47); Lymphocyte # 1.53 X10^3/ul (0.83-4.51); Lymphocyte % 10.9 % (19-41); Mean Corp Hgb Conc 32.6 g/dL (32-36); Mean Corpuscular Hgb 29.6 pg (27.0-32.0); Mean Corpuscular Volume 90.6 fL (81-99); Mean Platelet Vol. 9.3 fl (6.2-12.0); Monocyte# 0.93 X10^3/uL; Monocyte% 6.6 % (0-10); NRBC Flagged by Analyzer 0.1 % (0-5); Neutrophil # 11.02 X10^3/uL (2.7-7.7); Neutrophil % 78.8 % (47-70); Platelet Count 236 K/mm3 (150-450); RBC Distribution Width CV 13.5 % (11.6-14.6); RBC Distribution Width SD 44.5 fl (35.1-43.9); Red Blood Count 4.06 M/mm3 (4.2-5.4)
[2022-04-13 04:10] LABS: ALB/GLOB Ratio 0.6 RATIO (0.9-2.4); AST(SGOT) 16 U/L (15-37); Alanine Aminotransfer ALT/SGPT 20 U/L (13-56); Albumin, Serum 2.3 g/dL (3.2-5.0); Alkaline Phosphatase 158 U/L (45-117); Anion Gap 5 (5-15); BUN 7 mg/dL (7-18); BUN/Creat Ratio 11.7 RATIO (10-20); Chloride 103 mmol/L (98-107); EST Glomerular Filtration Rate 103 mL/min (>60); Est Glom Filt Rate - Afr Amer 125 mL/min (>60); Estimated Creatinine Clearance 41.05 ml/min; Globulin 3.7 g/dL (2.2-4.2); Glucose 102 mg/dL (74-106); Potassium 2.1 mmol/L (3.5-5.1); Sodium Level 140 mmol/L (136-145)
[2022-04-13] MEDS: Potassium Chloride Oral Soln 20 MEQ/15 ML UDC 40 MEQ PO (05:15)
[2022-04-13] MEDS: Levothyroxine 100 MCG Tablet PO (05:19)
[2022-04-13 08:00] LABS: Bedside Glucose 104 mg/dL (74-106)
[2022-04-13] MEDS: Lubiprostone 24 MCG Capsule PO ×2 (08:38→17:42)
[2022-04-13] MEDS: Acetaminophen 325 MG Tablet 650 MG PO (08:38)
[2022-04-13] MEDS: DULoxetine Hcl 60 MG Capsule PO (08:38)
[2022-04-13] MEDS: Topiramate 50 MG Tablet PO ×2 (08:38→22:11)
[2022-04-13] MEDS: Pantoprazole Sodium 20 MG Tablet PO (08:38)
[2022-04-13] MEDS: Furosemide 40 MG Tablet PO (08:38)
[2022-04-13] MEDS: APIXABAN 5 MG TABLET PO ×2 (08:38→22:11)
[2022-04-13] MEDS: Pramipexole Di-HCl 1 MG Tablet PO ×2 (08:38→22:11)
[2022-04-13] MEDS: Spironolactone 50 MG Tablet PO (08:38)
[2022-04-13 10:39] LABS: Anion Gap 4 (5-15); BUN 6 mg/dL (7-18); BUN/Creat Ratio 10.4 RATIO (10-20); Calcium,Total 7.4 mg/dL (8.5-10.1); Chloride 110 mmol/L (98-107); Creatinine, Serum 0.58 mg/dL (0.55-1.02); EST Glomerular Filtration Rate 107 mL/min (>60); Est Glom Filt Rate - Afr Amer 130 mL/min (>60); Estimated Creatinine Clearance 41.05 ml/min; Glucose 132 mg/dL (74-106); Potassium 2.7 mmol/L (3.5-5.1); Sodium Level 143 mmol/L (136-145)
--- NOTE | 2022-04-13 10:58 | PCM.PN.HOSP ---
Subjective Subjective Follow-up for being sick for 6 weeks with influenza A and then asthma exacerbation. She still has cough, mild shortness of breath on exertion. No sputum production. Generalized weakness. She has been having diarrhea for 3 weeks after taking 3 antibiotics. Her antibiotic was started for bronchitis/pneumonia. She denies any GI bleed. Objective Data Objective Data Vital Signs: Vital Signs Temp Pulse Resp BP Pulse Ox O2 Del Method O2 Flow Rate 98.4 F 76 17 117/66 93 Room Air 2 04/13/22 08:20 04/13/22 10:00 04/13/22 10:00 04/13/22 10:00 04/13/22 10:00 04/13/22 10:00 04/13/22 09:00 Oxygen Flow Rate (L/min) 2 Oxygen Delivery Method Room Air Weight: 166 lb 7.184 oz Body Mass Index (BMI) 26.4 Intake & Output: Intake and Output for Last 24 Hours 04/11/22 04/12/22 04/13/22 23:59 23:59 23:59 Intake Total 1100 / 1100 2746.67 / 2746.67 Output Total 500 / 500 Balance 1100 / 1100 2246.67 / 2246.67 Lab / Micro Data Result Diagrams: 04/13/22 03:30 04/13/22 10:15 Labs: Laboratory Results - last 24 hr 04/12/22 20:00: WBC 16.0 H, RBC 4.72, Hgb 13.7, Hct 42.1, MCV 89.2, MCH 29.0, MCHC 32.5, RDW Std Deviation 43.7, RDW Coeff of Basilio 13.3, Plt Count 275, MPV 9.2, Immature Gran % (Auto) 1.400 H, Neut % (Auto) 78.1 H, Lymph % (Auto) 10.0 L, [place] % (Auto) 8.4, Eos % (Auto) 1.5, Baso % (Auto) 0.6, Absolute Neuts (auto) 12.5 H, Absolute Lymphs (auto) 1.60, Nucleated RBC % 0.2 04/12/22 20:00: Sodium 139, Potassium 1.9 L*, Chloride 98, Carbon Dioxide 33.0 H, Anion Gap 8, BUN 11, Creatinine 0.82, Estim Creat Clear Calc 50.06, Est GFR (MDRD) Af Amer 86, Est GFR (MDRD) Non-Af 71, BUN/Creatinine Ratio 13.4, Glucose 147 H, Calcium 9.0 04/12/22 20:00: Magnesium 2.4 04/12/22 21:00: Urine Color Straw, Urine Clarity Cloudy, Urine pH 6.5, Ur Specific [place] 1.010, Urine Protein Negative, Urine Glucose (UA) 1000 H, Urine Ketones Negative, Urine Occult Blood 10 H, Urine Nitrite Negative, Urine Bilirubin Negative, Urine Urobilinogen Normal, Ur Leukocyte Esterase 500 H, Urine RBC 0 SEEN, Urine WBC 10-25 SEEN, Ur Squamous Epith Cells 5-10 SEEN, Urine Bacteria 2+, Urine Mucus 0 SEEN, Urine Yeast 3+ 04/13/22 00:05: Procalcitonin 0.20 H 04/13/22 00:20: MRSA (PCR) Negative 04/13/22 01:40: COVID-19 (VERITO) Not Detected 04/13/22 03:30: WBC 14.0 H, RBC 4.06 L, Hgb 12.0, Hct 36.8 L, MCV 90.6, MCH 29.6, MCHC 32.6, RDW Std Deviation 44.5 H, RDW Coeff of Basilio 13.5, Plt Count 236, MPV 9.3, Immature Gran % (Auto) 1.800 H, Neut % (Auto) 78.8 H, Lymph % (Auto) 10.9 L, [place] % (Auto) 6.6, Eos % (Auto) 1.3, Baso % (Auto) 0.6, Absolute Neuts (auto) 11.0 H, Absolute Lymphs (auto) 1.53, Nucleated RBC % 0.1 04/13/22 03:30: Sodium 140, Potassium 2.1 L*, Chloride 103, Carbon Dioxide 32.0, Anion Gap 5, BUN 7, Creatinine 0.60, Estim Creat Clear Calc 41.05, Est GFR (MDRD) Af Amer 125, Est GFR (MDRD) Non-Af 103, BUN/Creatinine Ratio 11.7, Glucose 102, Calcium 8.0 L, Total Bilirubin 0.30, AST 16, ALT 20, Alkaline Phosphatase 158 H, Total Protein 6.0 L, Albumin 2.3 L, Globulin 3.7, Albumin/Globulin Ratio 0.6 L 04/13/22 07:38: POC Glucose 104 04/13/22 10:15: Sodium 143, Potassium 2.7 L*, Chloride 110 H, Carbon Dioxide 29.0, Anion Gap 4 L, BUN 6 L, Creatinine 0.58, Estim Creat Clear Calc 41.05, Est GFR (MDRD) Af Amer 130, Est GFR (MDRD) Non-Af 107, BUN/Creatinine Ratio 10.4, Glucose 132 H, Calcium 7.4 L Micro: Microbiology 04/12/22 21:00 Urine, Clean Catch Legionella Antigen - Final 04/12/22 21:00 Urine, Clean Catch Streptococcus pneumoniae Antigen (M - Final 04/12/22 21:15 Nasal Secretion SARS-CoV-2 Antigen (Rapid) - Final Radiography Diagnostic Testing: Radiology Impression Chest X-Ray 04/12/22 20:10 IMPRESSION: Question patchy densities in the lateral aspect of the right midlung. Electronically Signed: Zelalem Oliva DO at 20:26 EST Reading Location ID and State: [facility] / [place] Tel [phone], Service support , Chest CT 04/13/22 23:45 IMPRESSION: Patchy groundglass opacities in the right upper lobe, right lower lobe, left lower lobe, lingula suggesting bilateral pneumonia. There is subpleural nodule in the left lower lobe measures 6 cm has nonspecific appearance, axial image #68. There is a hiatal hernia measures 9 cm. Electronically Signed: Estephania Salmeron MD at 1:31 EST Reading Location ID and State: [facility] / [place] Tel , Service support , Physical Exam Narrative Physical exam General: Alert, Oriented x3, Cooperative HEENT: Atraumatic, PERRLA, EOMI, Normocephalic Oral: Oral mucosa moist. No Gingival or Mucosal Lesions/ Ulcerations Neck: Supple, No JVD, Negative Carotid Bruits Lungs: Air entry diminished in bilateral lung bases. No crepitation/rhonchi. No dyspnea at rest Cardiovascular: Sinus rhythm, normal S1, Normal S2, No murmurs Abdomen: Bowel Sounds , Soft, Non Tender, Non-Distended : No renal angle tenderness. No suprapubic tenderness. Extremities: No edema, Capillary Refill Less than 3 Seconds Skin: No rashes, No breakdown Musculoskeletal: Muscle strength 4+/5 at major joints of lower extremities. No Tenderness to Palpation of Joints or Extremities Neurological: Cranial nerves II-XII grossly intact, DTR 2+/4 Psych/Mental Status: Flat affect. Assessment & Plan Assessment/Plan (1) Pneumonia: PLAN: Plan The patient is a 77 y/o F was admitted with shortness of breath cough and URI symptoms following influenza A with history of asthma. She also has been having diarrhea for 3 weeks and feels very weak and dehydrated after taking 3 antibiotics including Levaquin and Z-Terrence as an outpatient for pneumonia 1. Bilateral patchy bacterial pneumonia involving right upper lobe, right lower lobe, lingula and left lower lobe after influenza A viral pneumonia: Patient was admitted as an ICU started transition to PCU. Her symptoms of shortness of breath and cough are getting better.Currently pulse ox 94% on room air with no tachypnea. Leukocytosis improving. Urinary antigens are negative. MRSA negative. COVID-19 PCR negative. Will narrow down antibiotic to IV ceftriaxone. MRSA negative. 2. Subacute gastroenteritis probably due to IV antibiotics complicated with severe hypokalemia: Patient has history of hiatus hernia has gastroparesis for long time. Poor appetite. She did not had bowel movement since admission. Enteric bacteriology panel and C. difficile). Lactobacillus is added along with IV fluids. Patient might be dehydrated from canagliflozin, furosemide and patient 3. Severe hypokalemia: Admission K41.9. Patient had large doses of IV and oral replacement but distal potassium is low. Serum magnesium 2.4. Still potassium is 2.1. Serum phosphorus ordered. IV KCl replacement. 4. Asthmatic bronchitis prolonged history of pneumonia: Add Solu-Medrol 40 mg every 12 hourly for 2 doses and transition to prednisone tomorrow AM. 5. Hypertension and dyslipidemia: Hold Lasix but continue spironolactone until she is fully dehydrated. Continue statin. #6. History of VTE: Patient with history DVT, PE, patient with recent episodes with epistaxis and patient transiently had her home Eliquis held for the last 1.5, now restarted. #7. Hypothyroidism: We will continue patient home levothyroxine regimen. #8. Anxiety and depression: We will continue patient home duloxetine regimen. #9. Diabetes mellitus type II: Hold oral home regimen, continue patient on insulin regimen, ADA/gluten-free diet, accu checks w/ ISS. #10. Chronic Kidney Disease Stage II: Admission BUN/Cr 11/0.82, baseline renal function appears primarily 0.7-0.9, creatinine might b is spuriously low because of low muscle mass #11. Parkinson's disease: continue patient home pramipexole regimen. #12. Seizure disorder: continue patient home topiramate regimen #13. Chronic IBS:continue patient home lubiprostone regimen. #14. GERD: Status post Belkys fundoplication, continue patient on PPI #15. JHONY: CPAP nightly prior, but using recently secondary to recent epistaxis issues. #16. DVT prophylaxis: SCDs, patient with recent episodes with epistaxis and patient transiently had her home Eliquis held for the last 1.5, now restarted. Total time of the visit including total time spent in counseling or coordination of care, (more than 50% of the total time, spent in obtaining medical information from nurses and other ancillary care providers,explaining to the patient about labs, imaging, diagnosis and management of active complex medical conditions), , review of labs and imaging is 40 minutes. #17. CODE status: Patient HCPOA is the patient's and living will is currently in place. Discussed CODE status at length including difference between FULL code, DNR-CCA and DNR-CC status. Following discussions about the differences in these status, requested Full Code status. Clinical Impression(s) from Imaging Studies Chest X-Ray 04/12/22 20:10 IMPRESSION: Question patchy densities in the lateral aspect of the right midlung. Chest CT 04/13/22 23:45 IMPRESSION: Patchy groundglass opacities in the right upper lobe, right lower lobe, left lower lobe, lingula suggesting bilateral pneumonia. There is subpleural nodule in the left lower lobe measures 6 cm has nonspecific appearance, axial image #68. There is a hiatal hernia measures 9 cm. Charges/Coding Visit Charges Inpatient E&M: 46303 Subs Hosp L3
--- NOTE | 2022-04-13 11:00 | CASEMGMT ---
JESSIE GONZALEZ Discharge Planning Assessment: Face to Face with patient for initial transition planning/care coordination assessment. Pt sitting up in chair, alert and agreeable to participating in assessment. JESSIE GONZALEZ introduced self and role at [facility], Pt voiced understanding. Care providers, pharmacy, and demographics verified. PCP: [place] Specialists: eL with [facility] gastroenterology, Sheba with [facility] bariatric services (pt controlling diet, no operative intervention), Thomas ([place] for Parkinson's) [facility] Insurance: [place] MCR Prescription Benefit: Yes Living Will/HPOA: Yes/HPOA is Chandana Walters (spouse) LNOK: spouse Chandana Living Arrangements: Pt lives in a 2 story home with a 1st floor set-up with one step to enter. Pt has been independent with ADLs but spouse able to assist if needed. Pt's spouse does most of the cooking and cycle touring guide and their son and DIL assist as needed Transportation: Pt's spouse, daughter, or DIL drives pt as needed DME: shower chair, BSC, uninstalled hand held shower, walker, rollator, CPAP (has not been using, states it has been recalled, [facility]: yes but cannot recall the provider Plan: Pt's plan is to return home with the support of family at discharge. Will continue to monitor and assist with discharge planning needs as identified. Lissy Meadows RN CM
[2022-04-13] MEDS: Potassium Chloride Oral Tablet 20 MEQ 40 MEQ PO ×2 (11:44→17:42)
[2022-04-13] MEDS: 0.45% Normal Saline 1,000 ML 100 ML IV ×2 (12:37→22:19)
[2022-04-13 12:50] LABS: Phosphorus 2.1 mg/dL (2.5-4.9)
[2022-04-13] MEDS: Insulin Lispro 100 UNIT/ML INSULN.PEN SC ×2 (17:42→22:12)
[2022-04-13 17:56] LABS: Bedside Glucose 279 mg/dL (74-106)
[2022-04-13] MEDS: guaiFENesin/D-Methorphan TAB.SR.12H 1 TABLET PO (22:11)
[2022-04-13] MEDS: Atorvastatin Calcium 10 MG Tablet PO (22:11)
[2022-04-13 22:55] LABS: Bedside Glucose 270 mg/dL (74-106)
--- NOTE | 2022-04-13 23:45 | CT_ITS ---
INDICATION: Recurrent Pneumonia, concern other etiology EXAMINATION: CT CHEST WITH CONTRAST - CT Chest W/ Contrast Injection TECHNIQUE: Helically acquired images were obtained of the chest following IV contrast. A radiation dose optimization technique was used for this scan. IV Contrast dosage and agent: COMPARISON: None. FINDINGS: LUNGS, PLEURA AND LARGE AIRWAYS: Patchy groundglass opacities in the right upper lobe, right lower lobe, left lower lobe, lingula suggesting bilateral pneumonia. There is subpleural nodule in the left lower lobe measures 6 cm has nonspecific appearance, axial image #68. No pneumothorax. THYROID: No thyroid lesions. HEART AND PERICARDIUM: Heart size is normal. No pericardial effusion. VESSELS: Thoracic aorta is not dilated. No aortic dissection. No obvious central pulmonary embolism although this study was not performed with the pulmonary embolism protocol. MEDIASTINUM AND RUDY: No mediastinal or hilar adenopathy. Esophagus is unremarkable. No hiatal hernia. UPPER ABDOMEN: There is a hiatal hernia measures 9 cm. BONES: Healing fractures of the anterior aspect of the right sixth and seventh ribs and the anterior aspect of the left fourth rib. CT/Chest WITH Contrast IMPRESSION: Patchy groundglass opacities in the right upper lobe, right lower lobe, left lower lobe, lingula suggesting bilateral pneumonia. There is subpleural nodule in the left lower lobe measures 6 cm has nonspecific appearance, axial image #68. There is a hiatal hernia measures 9 cm. Electronically Signed: Estephania Salmeron MD at 1:31 EST ,
[2022-04-14] VITALS (13 sets, daily range): BP systolic 126–136; BP diastolic 65–97; PULSE 63–89; RESP 16–18; TEMP 36.6–36.7; O2SAT 92–97
[2022-04-14] MEDS: Levothyroxine 100 MCG Tablet PO (06:28)
[2022-04-14] MEDS: Insulin Lispro 100 UNIT/ML INSULN.PEN SC ×2 (06:28→11:08)
[2022-04-14 06:41] LABS: Bedside Glucose 215 mg/dL (74-106)
[2022-04-14] MEDS: Ipratropium/Albuterol Sulfate 3 ML AMPUL.NEB INHALATION ×2 (07:18→13:22)
[2022-04-14 08:35] LABS: Absolute Lymphocyte Count 0.81 X10^3/uL (0.83-4.51); Absolute Neutrophil Count 12.6 X10^3/uL (2.0-7.7); Basophil# 0.03 X10^3/uL; Basophil% 0.2 % (0-1); Hematocrit 35.8 % (37-47); Hemoglobin 12.1 g/dL (12.0-15.0); Lymphocyte # 0.81 X10^3/ul (0.83-4.51); Lymphocyte % 5.6 % (19-41); Mean Corp Hgb Conc 33.8 g/dL (32-36); Mean Corpuscular Hgb 30.7 pg (27.0-32.0); Mean Corpuscular Volume 90.9 fL (81-99); Mean Platelet Vol. 9.7 fl (6.2-12.0); Monocyte# 0.48 X10^3/uL; Monocyte% 3.3 % (0-10); NRBC Flagged by Analyzer 0 % (0-5); Neutrophil # 12.64 X10^3/uL (2.7-7.7); Neutrophil % 87.6 % (47-70); Platelet Count 210 K/mm3 (150-450); RBC Distribution Width CV 13.9 % (11.6-14.6); RBC Distribution Width SD 46.1 fl (35.1-43.9); Red Blood Count 3.94 M/mm3 (4.2-5.4); White Blood Count 14.4 K/mm3 (4.4-11.0)
[2022-04-14] MEDS: guaiFENesin/D-Methorphan TAB.SR.12H 1 TABLET PO (09:05)
[2022-04-14] MEDS: Ceftriaxone 1 GM/50 ML BAG IV (09:06)
[2022-04-14] MEDS: Potassium Chloride Oral Tablet 20 MEQ 40 MEQ PO (09:06)
[2022-04-14] MEDS: Pantoprazole Sodium 20 MG Tablet PO (09:06)
[2022-04-14] MEDS: 0.9% Saline Lock 10 ML Syringe IV (09:07)
[2022-04-14 09:10] LABS: Anion Gap 6 (5-15); BUN 8 mg/dL (7-18); BUN/Creat Ratio 15.6 RATIO (10-20); Calcium,Total 8.3 mg/dL (8.5-10.1); Chloride 105 mmol/L (98-107); Creatinine, Serum 0.51 mg/dL (0.55-1.02); EST Glomerular Filtration Rate 123 mL/min (>60); Est Glom Filt Rate - Afr Amer 148 mL/min (>60); Estimated Creatinine Clearance 41.05 ml/min; Glucose 208 mg/dL (74-106); Magnesium 2.1 mg/dL (1.6-2.6); Potassium 4.2 mmol/L (3.5-5.1); Sodium Level 136 mmol/L (136-145)
[2022-04-14 09:13] LABS: Phosphorus 2.2 mg/dL (2.5-4.9)
[2022-04-14] MEDS: Pramipexole Di-HCl 1 MG Tablet PO (09:49)
[2022-04-14] MEDS: Topiramate 50 MG Tablet PO (09:49)
[2022-04-14] MEDS: Spironolactone 50 MG Tablet PO (09:49)
[2022-04-14] MEDS: Lubiprostone 24 MCG Capsule PO (09:49)
[2022-04-14] MEDS: APIXABAN 5 MG TABLET PO (09:49)
[2022-04-14] MEDS: DULoxetine Hcl 60 MG Capsule PO (09:49)
[2022-04-14] MEDS: Insulin Glargine-YFGN 100 UNIT/ML Pen 30 UNIT SC (09:50)
--- NOTE | 2022-04-14 11:30 | CASEMGMT ---
Addendum entered by Mely Cleveland 04/14/22 13:07: JESSIE GONZALEZ received message from [facility] via [place] that they are able to accept patient with planned start of care for 04/16/22. JESSIE GONZALEZ updated patient and family regarding acceptance. Patient and family had no further questions or concerns at this time. Hospitalist updated. Original Note: JESSIE GONZALEZ updated by therapy that patient can go home with [facility]. JESSIE GONZALEZ in to talk with patient and family, reviewed progress with therapy. A list of [facility] providers including quality and resource use data and consistent with the patient?s preferred geographical region, medical needs, and insurance network were provided [facility]. Patient and family prefer [facility]. Referral made to [facility] for SN, PT/OT, SW. Patient and family had no further questions or concerns at this time. Awaiting acceptance from [facility].
[2022-04-14 11:55] LABS: Bedside Glucose 214 mg/dL (74-106)
--- NOTE | 2022-04-14 14:29 | DS.PCM_ITS ---
Providers Date of Admission: 04/12/22 Date of Discharge: 04/14/22 Primary Care Physician: Dr. Ramakrishna Rossi MD Reason For Visit: PNA, UTI, SEVERE HYPOKALEMIA Diagnosis Discharge Diagnosis (1) Pneumonia: Status: Acute Code(s): J18.9 - Pneumonia, unspecified organism Medications at Discharge Home Medications omeprazole 20 mg capsule,delayed release 20 mg PO DAILY ACID REFLUX 06/19/17 cholecalciferol (vitamin D3) 25 mcg (1,000 unit) tablet 5,000 unit PO DAILY SUPPLEMENT 07/28/17 simvastatin 20 mg tablet 20 mg PO QHS 90 days #90 tabs 09/01/17 albuterol sulfate 90 mcg/actuation aerosol inhaler 2 puff inhalation Q4H PRN Sob &/Or Wheezing 12/04/20 canagliflozin 300 mg tablet (Invokana) 300 mg PO QAM 12/04/20 duloxetine 60 mg capsule,delayed release 60 mg PO DAILY 12/04/20 zinc gluconate 30 mg tablet 30 mg PO DAILY 12/04/20 furosemide 40 mg tablet 40 mg PO BID #180 tabs 01/18/21 inhalational spacing device (POCKET CHAMBER spacer) #1 ea 01/23/21 diphenhydramine HCl 25 mg capsule (Benadryl) 25 mg PO QHS PRN Insomnia 06/02/21 insulin glargine 100 unit/mL (3 mL) subcutaneous pen (Lantus Solostar U-100 Insulin) 40 unit subcut QAM 06/02/21 topiramate 25 mg tablet 50 mg PO BID 06/02/21 ascorbic acid (vitamin C) 500 mg tablet 500 mg PO DAILY SUPPLEMENT 08/31/21 levothyroxine 100 mcg tablet 100 mcg PO DAILY THYROID 08/31/21 lubiprostone 24 mcg capsule 24 mcg PO BIDCM 08/31/21 spironolactone 50 mg tablet 50 mg PO DAILY #90 tabs 11/08/21 apixaban 5 mg tablet (Eliquis) 5 mg PO BID #60 tabs 11/25/21 ondansetron 4 mg disintegrating tablet 4 mg PO Q6H PRN nausea and vomiting #10 tabs 03/22/22 acetaminophen 500 mg tablet 1,000 mg PO Q4H PRN fever or pain 04/12/22 pramipexole 1 mg tablet 1 mg PO BID 04/12/22 rivaroxaban 20 mg tablet 20 mg PO DAILY 04/12/22 levofloxacin 750 mg tablet 750 mg PO DAILY #6 tabs 04/14/22 prednisone 10 mg tablet 10 mg PO DAILY #20 tabs 04/14/22 Hospital Course Operations None Procedures - (CT chest/chest x-ray) Summary of Care Provided Minutes Spent on Discharge: 36 Hospital Course: Mrs. Maloney is a 77-year-old white female who presented to the emergency department was coming hospital with dyspnea, cough and weakness. Patient has evidently have a 6-week history of persistent issues with coughing and dyspnea. She was recently diagnosed with influenza A at the beginning of March and treated as an outpatient. She also has COPD at baseline and was treated with Tamiflu and prednisone. She had a follow-up with her primary care physician and there was question of a right lower lobe infiltrate on her chest x-ray and a Z- Terrence was administered. The patient has had persistent cough despite treatment with antibiotics as an outpatient as well as fatigue, malaise, and generalized weakness. She also reported that she has had loose stools with her antibiotics but is having resolution of this since her last antibiotic was completed. She was admitted to hospital and treated with aggressive potassium replacement given her admission to potassium was 1.9. Her potassium had normalized and was 4.2 on the day of discharge. I suspect her hypokalemia was related to decreased p.o. intake as well as the diarrhea she had been experiencing. She was treated with IV antibiotics for 48 hours and cultures were obtained. She was unable to produce a sputum culture. Her COVID testing as documented above was negative and she had a negative respiratory viral panel. CT of her chest showed patchy groundglass opacities in the right upper lobe and right lower lobe as well as the left lower lobe and lingula suggestive of bilateral pneumonia. This would most likely be atypical in nature or ongoing abnormalities related to her recent influenza infection. She also had a 9 cm hiatal hernia. With regards to her hiatal hernia if this continues to be problematic at all as an outpatient she may need outpatient referral to surgery given its size but otherwise no current and needed other than ongoing PPI therapy. She was also treated with steroids given her history of COPD and shortness of breath on presentation. She was very briefly placed on nasal cannula on the through the night but this was discontinued in the morning yesterday and she has not required any supplemental oxygen since. Saturations are 97% on room air at the time of discharge. I suspect her generalized weakness was related to severe hypokalemia. We will go ahead and continue prednisone and antibiotics to complete a weeks course at the time of discharge covering for atypical pneumonia since we were unable to get a culture. We have asked her to follow-up with Dr. Tova sanabria from pulmonary medicine as she has seen him before because on the CT she had a subpleural nodule in the left lower lobe that was 6 cm. This will need follow-up per Fleischner criteria in a high risk individual with her history of tobacco abuse. She also had noted healing fractures on the CT in her ribs but no acute findings orthopedically. She was also asked to follow-up with her primary care physician in the next 2 weeks. Discharge diagnoses: Atypical pneumonia Severe hypokalemia Hypophosphatemia Acute exacerbation COPD Diarrhea-resolved History of asthma Hypertension Hyperlipidemia History of DVT Recent epistaxis-resolved Hypothyroidism DM-2 CKD stage II Parkinson's disease Seizure disorder IBS GERD JHONY Depression Anxiety Physical Exam Const alert, oriented x3, no apparent distress and well nourished Constitutional Narrative: Elderly white female sitting up in bed, watching television, appears comfortable nontoxic General Appearance: cooperative, comfortable, well kempt and well developed Orientation / Consciousness: awake, oriented to person, oriented to place and oriented to time Exam Limitations: no limitations Nutritional Appearance: overweight HEENT normocephalic, head/scalp atraumatic, hearing grossly normal bilaterally and moist oral mucous membranes Eyes PERRL, EOMs intact bilaterally and conjunctivae normal Neck no lymphadenopathy and supple Neck Narrative: Trachea midline, no thyroid enlargement Resp normal respiratory effort, no retractions, no use of accessory muscles and clear to auscultation bilaterally Resp Narrative: Diminished but clear Auscultation: Negative for crackles, rhonchi or wheezes Cardio regular rate, regular rhythm, S1 normal heart sound, S2 normal heart sound, no murmurs, no rub, no gallops and no clicks GI normal to inspection, nondistended, normoactive bowel sounds, soft to palpation and non-tender Extremity no clubbing, cyanosis or edema Extremity Narrative: 2+ pedal pulses Skin no rashes or lesions noted, no wounds, skin turgor normal and no jaundice Neuro oriented x3, moves all extremities and no focal motor deficits Neuro Narrative: Generalized weakness noted Speech: speech normal Psych affect normal Psych Narrative: Very pleasant and appropriately interactive Weight / BMI Weight Weight: 77.3 kg Body Mass Index (BMI) 26.4 ABG / Lab / Microbiology Data Result Diagrams: 04/14/22 08:20 04/14/22 08:20 Laboratory: Laboratory Results - last 24 hr 04/13/22 17:35: POC Glucose 279 H 04/13/22 22:10: POC Glucose 270 H 04/14/22 06:20: POC Glucose 215 H 04/14/22 08:20: WBC 14.4 H, RBC 3.94 L, Hgb 12.1, Hct 35.8 L, MCV 90.9, MCH 30.7, MCHC 33.8, RDW Std Deviation 46.1 H, RDW Coeff of Basilio 13.9, Plt Count 210, MPV 9.7, Immature Gran % (Auto) 3.300 H, Neut % (Auto) 87.6 H, Lymph % (Auto) 5.6 L, [place] % (Auto) 3.3, Eos % (Auto) 0.0, Baso % (Auto) 0.2, Absolute Neuts (auto) 12.6 H, Absolute Lymphs (auto) 0.81 L, Nucleated RBC % 0 04/14/22 08:20: Sodium 136, Potassium 4.2, Chloride 105, Carbon Dioxide 25.0, Anion Gap 6, BUN 8, Creatinine 0.51 L, Estim Creat Clear Calc 41.05, Est GFR (MDRD) Af Amer 148, Est GFR (MDRD) Non-Af 123, BUN/Creatinine Ratio 15.6, Glucose 208 H, Calcium 8.3 L, Magnesium 2.1 04/14/22 08:20: Phosphorus 2.2 L 04/14/22 11:05: POC Glucose 214 H Microbiology: Microbiology 04/13/22 01:40 Mucosa - Nasopharyngeal Respiratory Panel (PCR) - Final 04/12/22 21:00 Urine, Clean Catch Legionella Antigen - Final 04/12/22 21:00 Urine, Clean Catch Streptococcus pneumoniae Antigen (M - Final 04/12/22 21:15 Nasal Secretion SARS-CoV-2 Antigen (Rapid) - Final D/C Instructions Discharge Diet: Low fat / Low cholesterol Discharge Activity: Return to Normal Activity Meaningful Use Info Meaningful Use Diagnoses (Choose all that apply): None applicable Discharge Plan Admission Admit Date/Time: 04/12/22 22:16 Primary Reason for Your Visit: Shortness of breath/weakness/cough Attending Provider: Grisel Cuenca Primary Care Provider: Ramakrishna Rossi Consulting Providers: Ben Escalante Discharge Orders/Prescriptions Prescriptions: New prednisone 10 mg tablet 10 mg PO DAILY Qty: 20 0RF Rx Instructions: 4 tab daily x5 days levofloxacin 750 mg tablet 750 mg PO DAILY Qty: 6 0RF Continued omeprazole 20 mg capsule,delayed release(DR/EC) 20 mg PO DAILY simvastatin 20 mg tablet 20 mg PO QHS 90 Days Qty: 90 Label Comments: TAKE 1 TABLET BY MOUTH EVERY DAY duloxetine 60 mg capsule,delayed release(DR/EC) 60 mg PO DAILY Invokana 300 mg tablet 300 mg PO QAM zinc gluconate 30 mg tablet 30 mg PO DAILY Lantus Solostar U-100 Insulin 100 unit/mL (3 mL) insulin pen 40 unit subcut QAM furosemide 40 mg tablet 40 mg PO BID Qty: 180 3RF topiramate 25 mg tablet 50 mg PO BID diphenhydramine HCl [Benadryl] 25 mg capsule 25 mg PO QHS PRN (Reason: Insomnia) Eliquis 5 mg tablet 5 mg PO BID Qty: 60 3RF albuterol sulfate 90 mcg/actuation HFA aerosol inhaler 2 puff inhalation Q4H PRN (Reason: Sob &/Or Wheezing) cholecalciferol (vitamin D3) 1,000 UNIT tablet 5,000 unit PO DAILY (DME) POCKET CHAMBER Spacer See Rx Instructions .ROUTE .MEDSUPPLY Qty: 1 0RF Rx Instructions: As directed levothyroxine 100 mcg tablet 100 mcg PO DAILY Label Comments: TAKE 1 TABLET BY MOUTH EVERY DAY ascorbic acid (vitamin C) 500 mg Tablet 500 mg PO DAILY lubiprostone 24 mcg capsule 24 mcg PO BIDCM Label Comments: Take 1 capsule by mouth twice daily with meals. ondansetron 4 mg tablet,disintegrating 4 mg PO Q6H PRN (Reason: nausea and vomiting) Qty: 10 0RF acetaminophen 500 mg tablet 1,000 mg PO Q4H PRN (Reason: fever or pain) pramipexole 1 mg Tablet 1 mg PO BID rivaroxaban 20 mg Tablet 20 mg PO DAILY Rx Instructions: must administer with evening meal spironolactone 50 mg tablet 50 mg PO DAILY Qty: 90 2RF Referrals / Follow Up: Bola Ordoñez MD [Med Staff - Active Staff] - Within 2 Weeks (pulmonary nodule) Ramakrishna Rossi MD [Primary Care Provider] - Within 2 Weeks Disposition Disposition (needs filled in before D/C Order can be placed): Home Health Service Charges/Coding Visit Charges Inpatient E&M: 84029 Disch Hosp
[2022-04-14 16:35] LABS: Bedside Glucose 257 mg/dL (74-106)
== END 2022-04-14 17:00 | disposition home health service (06) | DRG 640 ==
LOC: ED 19:50 → ICU 22:31 → PCU 04-14 08:29
PROVIDERS: Internal Medicine; Admitting Provider Family Medicine; Emergency Provider Student in an Organized Health Care Education/Training Program; PCP Family Medicine; Visit Provider Internal Medicine
DX: E87.6 Hypokalemia (principal); J18.9 Pneumonia, unspecified organism; J44.0 Chronic obstructive pulmonary disease with (acute) lower respiratory infection; K52.1 Toxic gastroenteritis and colitis; E83.39 Other disorders of phosphorus metabolism; E11.22 Type 2 diabetes mellitus with diabetic chronic kidney disease; G20 Parkinson's disease; Z79.4 Long term (current) use of insulin; G40.909 Epilepsy, unspecified, not intractable, without status epilepticus; K21.9 Gastro-esophageal reflux disease without esophagitis; E03.9 Hypothyroidism, unspecified; N18.2 Chronic kidney disease, stage 2 (mild); G47.33 Obstructive sleep apnea (adult) (pediatric); I12.9 Hypertensive chronic kidney disease with stage 1 through stage 4 chronic kidney disease, or unspecified chronic kidney disease; E78.5 Hyperlipidemia, unspecified; K44.9 Diaphragmatic hernia without obstruction or gangrene; F41.9 Anxiety disorder, unspecified; T36.95XA Adverse effect of unspecified systemic antibiotic, initial encounter; F32.A Depression, unspecified; Z20.822 Contact with and (suspected) exposure to COVID-19; Z79.01 Long term (current) use of anticoagulants; Z79.890 Hormone replacement therapy; Z79.899 Other long term (current) drug therapy; Z87.891 Personal history of nicotine dependence; Z86.711 Personal history of pulmonary embolism; Z86.718 Personal history of other venous thrombosis and embolism
CPT/HCPCS: 36415; 71045; 71260; 80048; 80053; 81001; 82962; 83735; 84100; 84145; 85025; 87449; 87633; 87635; 87641; 87811; 94640; 94667; 94668; 94762; 97162; 97166; 99251; 99284; J7030; J7040; J7050; Q9967; A4216; G0463; J2405; U0003; U0005

== ENCOUNTER → 2022-04-19 | Outpatient (CLI) | payer MEDICARE, SELFPAY ==
[2022-04-19 15:18] LABS: Anion Gap 4 (5-15); BUN 19 mg/dL (7-18); BUN/Creat Ratio 24.1 RATIO (10-20); Calcium,Total 9.5 mg/dL (8.5-10.1); Chloride 100 mmol/L (98-107); Creatinine, Serum 0.79 mg/dL (0.55-1.02); EST Glomerular Filtration Rate 75 mL/min (>60); Est Glom Filt Rate - Afr Amer 91 mL/min (>60); Glucose 128 mg/dL (74-106); Phosphorus 3.1 mg/dL (2.5-4.9); Potassium 3.5 mmol/L (3.5-5.1); Sodium Level 139 mmol/L (136-145)
== END | disposition home or self-care (01) ==
LOC: LAB 14:06
PROVIDERS: PCP Family Medicine; Visit Provider Family Medicine
DX: E87.6 Hypokalemia (principal); R79.0 Abnormal level of blood mineral
CPT/HCPCS: 36415; 80048; 84100

== ENCOUNTER → 2022-04-23 | Outpatient (CLI) | payer MEDICARE, SELFPAY ==
[2022-04-23 15:39] LABS: Anion Gap 9 (5-15); BUN 20 mg/dL (7-18); BUN/Creat Ratio 30.8 RATIO (10-20); Calcium,Total 8.8 mg/dL (8.5-10.1); Chloride 101 mmol/L (98-107); Creatinine, Serum 0.65 mg/dL (0.55-1.02); EST Glomerular Filtration Rate 94 mL/min (>60); Est Glom Filt Rate - Afr Amer 113 mL/min (>60); Glucose 236 mg/dL (74-106); Phosphorus 2.9 mg/dL (2.5-4.9); Potassium 3.6 mmol/L (3.5-5.1); Sodium Level 136 mmol/L (136-145)
== END | disposition home or self-care (01) ==
LOC: LABSPEC 15:11
PROVIDERS: PCP Family Medicine; Visit Provider Family Medicine
DX: J18.9 Pneumonia, unspecified organism (principal); E11.22 Type 2 diabetes mellitus with diabetic chronic kidney disease; N18.2 Chronic kidney disease, stage 2 (mild)
CPT/HCPCS: 80048; 84100

== ENCOUNTER → 2022-05-18 | Outpatient (CLI) | payer MEDICARE, SELFPAY ==
[2022-05-18 11:20] LABS: Absolute Lymphocyte Count 1.71 X10^3/uL (0.83-4.51); Absolute Neutrophil Count 6.9 X10^3/uL (2.0-7.7); Basophil# 0.08 X10^3/uL; Basophil% 0.8 % (0-1); Eosinophil# 0.13 X10^3/uL; Eosinophils% 1.3 % (0-5); Hematocrit 42.8 % (37-47); Hemoglobin 13.7 g/dL (12.0-15.0); Lymphocyte # 1.71 X10^3/ul (0.83-4.51); Lymphocyte % 17.3 % (19-41); Mean Corpuscular Hgb 29.5 pg (27.0-32.0); Mean Corpuscular Volume 92.2 fL (81-99); Mean Platelet Vol. 9.4 fl (6.2-12.0); Monocyte# 0.88 X10^3/uL; Monocyte% 8.9 % (0-10); NRBC Flagged by Analyzer 0 % (0-5); Neutrophil # 6.94 X10^3/uL (2.7-7.7); Platelet Count 468 K/mm3 (150-450); RBC Distribution Width CV 14.7 % (11.6-14.6); RBC Distribution Width SD 49.8 fl (35.1-43.9); Red Blood Count 4.64 M/mm3 (4.2-5.4); White Blood Count 9.9 K/mm3 (4.4-11.0)
[2022-05-18 11:48] LABS: BNP,B-Type NATRIURETIC PEPTIDE 26.4 pg/mL (0-100)
[2022-05-18 11:51] LABS: Vitamin D,25 Hydroxy 44.1 ng/mL
[2022-05-18 11:54] LABS: Anion Gap 7 (5-15); BUN 20 mg/dL (7-18); BUN/Creat Ratio 23.4 RATIO (10-20); Calcium,Total 9.7 mg/dL (8.5-10.1); Chloride 95 mmol/L (98-107); Creatinine, Serum 0.85 mg/dL (0.55-1.02); EST Glomerular Filtration Rate 68 mL/min (>60); Est Glom Filt Rate - Afr Amer 83 mL/min (>60); Glucose 310 mg/dL (74-106); Potassium 4.3 mmol/L (3.5-5.1); Sodium Level 134 mmol/L (136-145); Thyroid Stim Hormone (TSH) 3.79 uIU/mL (0.358-3.74)
--- NOTE | 2022-05-18 13:53 | CT_ITS ---
STUDY: CT CHEST WITHOUT CONTRAST REASON FOR EXAM: Female, 77 years old. SOB. History of pneumonia. Seizures. RADIATION DOSAGE (If Supplied By Facility): CTDIvol = ( 11.69 ) mGy, DLP = ( 394.21 ) mGycm TECHNIQUE: Transaxial imaging was performed without the administration of intravenous contrast material. Multiplanar coronal and sagittal images were reformatted. Individualized dose optimization techniques were used for this CT. COMPARISON: Comparison is made with prior examination 04/13/2022. FINDINGS: CHEST Mild increased markings at the lung bases in the posterior medial segments of both lower lobes suggestive of scarring. The previously seen areas of groundglass appearance in the posterior aspect of the right middle lobe and lower lobes have cleared. Stable 6 mm noncalcified nodule in the subpleural aspect of the left lower lobe. There is no demonstrated pleural abnormality. There are calcifications of the coronary arteries. There are multiple small lymph nodes within the mediastinum, which are normal in size and morphology most compatible with reactive lymph hyperplasia. Normal hilar regions. Normal unenhanced pulmonary arteries. There is atherosclerotic calcification of the aortic arch with tortuosity and elongation of the aortic arch and descending thoracic aorta. There are multi-level degenerative changes of the thoracic spine. There is evidence of a large hiatal hernia. CT/Chest without Contrast IMPRESSION: Large anal hernia. Residual scarring at the lung bases. Resolution of the previously seen groundglass appearance. Electronically Signed: Zion Chen MD at 15:18 EST ,
== END | disposition home or self-care (01) ==
LOC: CT 13:52
PROVIDERS: Nurse Practitioner Gerontology; PCP Family Medicine; Referring Provider Internal Medicine Pulmonary Disease; Visit Provider Internal Medicine Pulmonary Disease
DX: K44.9 Diaphragmatic hernia without obstruction or gangrene (principal); I77.1 Stricture of artery; I70.0 Atherosclerosis of aorta; R56.9 Unspecified convulsions; J98.4 Other disorders of lung; I25.10 Atherosclerotic heart disease of native coronary artery without angina pectoris; R91.1 Solitary pulmonary nodule; J18.9 Pneumonia, unspecified organism; J45.909 Unspecified asthma, uncomplicated; E55.9 Vitamin D deficiency, unspecified; R53.83 Other fatigue; R06.00 Dyspnea, unspecified
CPT/HCPCS: 36415; 71250; 80048; 82306; 83880; 84443; 85025

== ENCOUNTER → 2022-05-25 | Outpatient (CLI) | payer MEDICARE, SELFPAY ==
--- NOTE | 2022-05-25 13:46 | ECHOD_ITS ---
Version 2 Reason For Study: Dyspnea/SOB Procedure This was a 2D Doppler, Color Flow transthoracic echocardiogram. Exam performed in department. Left Ventricle Normal LV size. Left ventricular systolic function is normal. The estimated ejection fraction is 55 %. Stage 1 diastolic dysfunction. No regional wall motion abnormalities noted. Right Ventricle Normal RV size. Normal systolic function. Atria Small left atrium Possible compression from hiatal hernia. Normal right atrium. Mitral Valve Normal mitral valve. Tricuspid Valve Normal tricuspid valve. Mild tricuspid valve insufficiency. Pulmonary artery systolic pressure is 25 mmHg. Pulmonic Valve Normal pulmonic valve. Great Vessels Normal aortic root. The pulmonary artery is normal size. Normal inferior vena cava. Pericardium/Pleural No pericardial effusion. MMode/2D Measurements & Calculations LVIDd: 3.7 cm IVSd: 1.1 cm Ao root diam: 2.8 cm LVIDs: 2.5 cm LVPWd: 1.1 cm RVDd: 2.7 cm FS: 31.2 % LAV(MOD-bp): 18.3 ml LVAd ap4: 19.4 cm2 SV(MOD-sp4): 28.0 ml LAV(MOD-bp) Indexed: 10.3 ml/m2 LVLd ap4: 6.9 cm LAV(MOD-sp2): 13.2 ml EDV(MOD-sp4): 44.0 ml LAV(MOD-sp4): 22.9 ml EDV(sp4-el): 46.6 ml LVAs ap4: 10.4 cm2 LVLs ap4: 5.6 cm ESV(MOD-sp4): 16.0 ml ESV(sp4-el): 16.3 ml EF(MOD-sp4): 63.7 % EF(sp4-el): 65.1 % SV(sp4-el): 30.3 ml LA dimension(2D): 3.1 cm LA A4 area: 11.3 cm2 RA A4 area: 11.2 cm2 Time Measurements MV dec time: 0.22 sec Doppler Measurements & Calculations MV E max franck: 74.0 cm/sec Lat Peak E' Franck: 7.2 cm/sec Med Peak E' Franck: 4.3 cm/sec MV A max franck: 91.1 cm/sec E/E' lat: 10.2 E/E' med: 17.2 MV E/A: 0.81 Ao V2 max: 149.4 cm/sec LV V1 max: 104.1 cm/sec MV dec slope: 334.2 cm/sec2 Ao max P.9 mmHg LV V1 max P.3 mmHg Ao V2 mean: 97.5 cm/sec Ao mean P.5 mmHg Ao V2 VTI: 27.4 cm PA V2 max: 97.3 cm/sec TR max franck: 232.7 cm/sec TR max P.7 mmHg ECHO/Echo Complete Interpretation Summary Normal LV size. Left ventricular systolic function is normal. The estimated ejection fraction is 55 %. Stage 1 diastolic dysfunction. Pulmonary artery systolic pressure is 25 mmHg. Small left atrium Possible compression from hiatal hernia. Ordering Physician: Judit Maria Referring Physician: Gael Garza Performed By: Debra Elliott, RYANN, RVT
== END | disposition home or self-care (01) ==
PROVIDERS: PCP Family Medicine; Visit Provider Nurse Practitioner Gerontology
DX: R06.00 Dyspnea, unspecified (principal)
CPT/HCPCS: 93306

== ENCOUNTER → 2022-06-17 | Outpatient (CLI) | payer MEDICARE, SELFPAY | END | disposition home or self-care (01) | LOC: PSN 12:31 | PROVIDERS: PCP Family Medicine; Visit Provider Nurse Practitioner Gerontology | DX: I49.1 Atrial premature depolarization (principal); R00.0 Tachycardia, unspecified | CPT/HCPCS: 93225; 93226 ==

== ENCOUNTER → 2022-06-28 | Outpatient (CLI) | payer MEDICARE, SELFPAY ==
[2022-06-28 15:47] LABS: Vitamin B12 385 pg/mL (211-911)
[2022-06-28 16:23] LABS: Hemoglobin A1c 8.2 % (3.8-5.6)
== END | disposition home or self-care (01) ==
LOC: BFHLAB 13:22
PROVIDERS: PCP Family Medicine; Visit Provider Family Medicine
DX: E11.9 Type 2 diabetes mellitus without complications (principal); R53.83 Other fatigue
CPT/HCPCS: 36415; 82607; 83036

== ENCOUNTER 2022-07-03 15:17 | Emergency (ER) | payer MEDICARE, SELFPAY ==
[2022-07-03 15:19] VITALS: BP 114/72; PULSE 84; RESP 16; TEMP 36.9; O2SAT 100; BMI 27.5
--- NOTE | 2022-07-03 15:35 | EDS_ITS ---
HPI <MAGGIE Soto - Last Filed: 07/03/22 16:26> History of Present Illness Chief Complaint: Upper Extremity Injury Narrative Narrative: 77-year-old female has 4 days of left shoulder pain that radiates down to the elbow. A couple days before that she was having left-sided neck spasms and her primary care prescribed Flexeril. She states her neck settled down but the medication does not help her shoulder. She tried Tylenol and took a dose of her husbands tramadol with no relief. She has pain with shoulder range of motion but no weakness or paresthesias. No trauma or falls. No history of similar symptoms. No chest pain or shortness of breath. [facility] <MAGGIE Soto - Last Filed: 07/03/22 16:26> [facility] Medical History Asthma COPD (chronic obstructive pulmonary disease) Depression Diabetes mellitus type II, controlled Edema Esophageal spasm Essential hypertension GERD (gastroesophageal reflux disease) Hiatal hernia History of basal cell carcinoma (BCC) History of DVT (deep vein thrombosis) History of pulmonary embolism Hyperlipidemia Hypothyroidism IBS (irritable bowel syndrome) Kidney disease Lumbar back pain Lung disease Obesity (BMI 30.0-34.9) JHONY (obstructive sleep apnea) Osteoarthritis Parkinsons disease Premature atrial contractions Seizure disorder Sleep apnea Symptomatic bradycardia Venous insufficiency Home Medications omeprazole 20 mg capsule,delayed release 20 mg PO DAILY ACID REFLUX 06/19/17 [History Last Taken 08/31/21] cholecalciferol (vitamin D3) 25 mcg (1,000 unit) tablet 5,000 unit PO DAILY SUPPLEMENT 07/28/17 [History Last Taken 08/30/21] simvastatin 20 mg tablet 20 mg PO QHS 90 days #90 tabs 09/01/17 [History Last Taken 08/30/21] albuterol sulfate 90 mcg/actuation aerosol inhaler 2 puff inhalation Q4H PRN Sob &/Or Wheezing 12/04/20 [History Last Taken Unknown] canagliflozin 300 mg tablet (Invokana) 300 mg PO QAM 12/04/20 [History Last Taken 08/31/21] duloxetine 60 mg capsule,delayed release 60 mg PO DAILY 12/04/20 [History Last Taken 08/30/21] zinc gluconate 30 mg tablet 30 mg PO DAILY 12/04/20 [History Last Taken 08/30/21] furosemide 40 mg tablet 40 mg PO BID #180 tabs 01/18/21 [Rx Last Taken 08/31/21] inhalational spacing device (POCKET CHAMBER spacer) #1 ea 01/23/21 [Rx Last Taken Unknown] diphenhydramine HCl 25 mg capsule (Benadryl) 25 mg PO QHS PRN Insomnia 06/02/21 [History Last Taken 08/30/21] insulin glargine 100 unit/mL (3 mL) subcutaneous pen (Lantus Solostar U-100 Insulin) 40 unit subcut QAM 06/02/21 [History Last Taken 08/31/21] topiramate 25 mg tablet 50 mg PO BID 06/02/21 [History Last Taken 08/31/21] ascorbic acid (vitamin C) 500 mg tablet 500 mg PO DAILY SUPPLEMENT 08/31/21 [History Last Taken 08/30/21] levothyroxine 100 mcg tablet 100 mcg PO DAILY THYROID 08/31/21 [History Last Taken 08/31/21] lubiprostone 24 mcg capsule 24 mcg PO BIDCM 08/31/21 [History Last Taken 08/31/21] spironolactone 50 mg tablet 50 mg PO DAILY #90 tabs 11/08/21 [Rx Last Taken Unknown] apixaban 5 mg tablet (Eliquis) 5 mg PO BID #60 tabs 11/25/21 [Rx Last Taken Unknown] ondansetron 4 mg disintegrating tablet 4 mg PO Q6H PRN nausea and vomiting #10 tabs 03/22/22 [Rx Last Taken Unknown] acetaminophen 500 mg tablet 1,000 mg PO Q4H PRN fever or pain 04/12/22 [History Last Taken Unknown] pramipexole 1 mg tablet 1 mg PO BID 04/12/22 [History Last Taken Unknown] potassium citrate 5 mEq (540 mg) tablet,extended release 5 meq PO DAILY 05/18/22 [History Last Taken Unknown] Allergy/AdvReac Type Severity Reaction Status Date / Time nitrofurantoin Allergy Hives Verified 07/03/22 15:18 macrocrystalline [From Macrodantin] rosuvastatin [From Crestor] AdvReac Severe Muscle Verified 07/03/22 15:18 weakness colesevelam [From WelChol] AdvReac Intermediate nausea Verified 07/03/22 15:18 nitrofurantoin AdvReac Intermediate Hives Verified 07/03/22 15:18 [From Furadantin] metformin AdvReac Unknown Gi side Verified 07/03/22 15:18 effects milk [dairy] AdvReac Upset Verified 07/03/22 15:18 Stomach MAPLE TREES Allergy Hives Uncoded 07/03/22 15:18 Family History Father CAD (coronary artery disease) Diabetes Myocardial infarction Alzheimers disease Hypertension Parkinson's disease Cancer melanoma History of blood clots Mother Diabetes AAA (abdominal aortic aneurysm) Bleeding disorder Colon cancer Thyroid disorder Brother Multiple sclerosis Skin cancer Surgical History History of cholecystectomy History of lumbar fusion (~2012) History of Belkys fundoplication History of right hip replacement (~07/08/15) History of tonsillectomy and adenoidectomy Hx of hernia repair Hx of lumbar discectomy Social History Smoking Status: Never smoker alcohol intake: never substance use type: does not use diet: diabetic and gluten free caffeine: No what type of physical activity do you participate in: none seatbelt use: always do you feel safe at home: Yes ROS <MAGGIE Soto - Last Filed: 07/03/22 16:26> ROS ED ROS Narrative Constitutional: Negative for fever, chills, malaise. CVS: Negative for palpitations, chest pain. Respiratory: Negative for shortness of breath. GI: Negative for abdominal pain, nausea, vomiting. Neuro: Negative for motor/sensory dysfunction. Skin: Negative for rash, wound. Musc: Positive for left shoulder pain. No swelling or trauma. EXAM <MAGGIE Soto - Last Filed: 07/03/22 16:26> Physical Exam Narrative Exam Narrative: CONST: Patient sitting in no acute distress. EYES: Normal inspection. NECK: Normal inspection. RESP: No respiratory distress, CTAB. CVS: Regular rate and rhythm, no murmur, no gallop. SKIN: Color normal, no rash, warm, dry, intact. EXTREMITIES: Normal appearance tender to palpation over left humeral head, no deformity or crepitus. Shoulder range of motion limited due to pain but full passive ROM. 3/5 strength in shoulder abduction and supraspinatus testing, otherwise 5/5 distal strength. Normal sensation in axillary median ulnar and radial distributions, 2+ radial pulse and brisk cap refill. NEURO: Oriented x4. PSYCH: Normal affect. Const Vital Signs: 07/03/22 15:19 Temperature 98.4 F Temperature Source Temporal Pulse Rate 84 Respiratory Rate 16 Blood Pressure 114/72 Blood Pressure Mean 86 Pulse Ox 100 Oxygen Delivery Method Room Air [facility] <MAGGIE Soto - Last Filed: 07/03/22 16:26> [facility] Narrative Medical decision making narrative: History gathered from: Patient and Patient has 4 days of atraumatic left shoulder pain radiating towards the left elbow. Pain limits range of motion but there is no weakness or paresthesias. She is tender over the proximal humerus and knee biceps tendon. She has pain with shoulder range of motion with slight abduction and supraspinatus weakness. Distal motor and sensory function intact. ED attending interpretation of shoulder x-ray shows no acute fracture or dislocation.. Differential includes musculoskeletal pain versus rotator cuff versus tendinitis. She is on a blood thinner so she cannot take NSAIDs. Should take Tylenol, ice, follow-up with her established orthopedic doctor. She was discharged in stable condition. Test considered but not ordered: No CP/SOB and no exertional component so she does not need a cardiac work-up. <Dr. Dilip Hurley DO - Last Filed: 07/03/22 22:17> [facility] Narrative Medical decision making narrative: History gathered from: Patient and Patient has 4 days of atraumatic left shoulder pain radiating towards the left elbow. Pain limits range of motion but there is no weakness or paresthesias. She is tender over the proximal humerus and knee biceps tendon. She has pain with shoulder range of motion with slight abduction and supraspinatus weakness. Distal motor and sensory function intact. ED attending interpretation of shoulder x-ray shows no acute fracture or dislocation.. Differential includes musculoskeletal pain versus rotator cuff versus tendinitis. She is on a blood thinner so she cannot take NSAIDs. Should take Tylenol, ice, follow-up with her established orthopedic doctor. She was discharged in stable condition. Test considered but not ordered: No CP/SOB and no exertional component so she does not need a cardiac work-up. Attending note: Patient seen and evaluated with information technology manager. I perform my own [id number] evaluation. I agree with the plan of work-up. Nontraumatic left shoulder pain for 4 days. Stat neck pain also PCP placed on Flexeril. Neck pain improved however shoulder with discomfort. Exam positive speeds test positive empty can. No deformities. Skin intact. Neuro vas intact distally. X-ray shoulder 4 views interpreted myself no fracture or dislocation. Exam concerns for biceps tendinitis along with rotator cuff strain. She follows orthopedics for which she will call for outpatient evaluation. All questions were answered. Discharge Plan Triage Chief Complaint: Upper Extremity Injury ED Midlevel Provider: Huma Lepe ED Provider: Dilip Hurley Dx/Rx/DC Orders Clinical Impression: Left shoulder tendinitis, Rotator cuff strain Instructions: ED Shoulder Pain, Uncertain Cause Prescriptions: No Action omeprazole 20 mg capsule,delayed release(DR/EC) 20 mg PO DAILY simvastatin 20 mg tablet 20 mg PO QHS 90 Days Qty: 90 Label Comments: TAKE 1 TABLET BY MOUTH EVERY DAY duloxetine 60 mg capsule,delayed release(DR/EC) 60 mg PO DAILY Invokana 300 mg tablet 300 mg PO QAM zinc gluconate 30 mg tablet 30 mg PO DAILY Lantus Solostar U-100 Insulin 100 unit/mL (3 mL) insulin pen 40 unit subcut QAM furosemide 40 mg tablet 40 mg PO BID Qty: 180 3RF topiramate 25 mg tablet 50 mg PO BID diphenhydramine HCl [Benadryl] 25 mg capsule 25 mg PO QHS PRN (Reason: Insomnia) Eliquis 5 mg tablet 5 mg PO BID Qty: 60 3RF potassium citrate 5 mEq (540 mg) tablet extended release 5 meq PO DAILY albuterol sulfate 90 mcg/actuation HFA aerosol inhaler 2 puff inhalation Q4H PRN (Reason: Sob &/Or Wheezing) cholecalciferol (vitamin D3) 1,000 UNIT tablet 5,000 unit PO DAILY (DME) POCKET CHAMBER Spacer See Rx Instructions .ROUTE .MEDSUPPLY Qty: 1 0RF Rx Instructions: As directed levothyroxine 100 mcg tablet 100 mcg PO DAILY Label Comments: TAKE 1 TABLET BY MOUTH EVERY DAY ascorbic acid (vitamin C) 500 mg Tablet 500 mg PO DAILY lubiprostone 24 mcg capsule 24 mcg PO BIDCM Label Comments: Take 1 capsule by mouth twice daily with meals. ondansetron 4 mg tablet,disintegrating 4 mg PO Q6H PRN (Reason: nausea and vomiting) Qty: 10 0RF acetaminophen 500 mg tablet 1,000 mg PO Q4H PRN (Reason: fever or pain) pramipexole 1 mg Tablet 1 mg PO BID spironolactone 50 mg tablet 50 mg PO DAILY Qty: 90 2RF Primary Care Provider: Gael Garza Referrals: Gael Garza DO [Primary Care Provider] - Hayden Abraham MD [Med Staff - Active Staff] - Activity Restrictions/Additional Instructions: I would use ice, Tylenol, and follow-up with Dr. Abraham. It may be tendinitis or a rotator cuff issue. Disposition Disposition: Home, Self Care Discharge Date/Time: 07/03/22 16:31
--- NOTE | 2022-07-03 15:50 | RAD_ITS ---
EXAM: XR LEFT SHOULDER COMPLETE, 2 OR MORE VIEWS CLINICAL INDICATION: Injury/Pain TECHNIQUE: Two or more views of the left shoulder. This report was created using [employer] report generation technology. COMPARISON: None. FINDINGS: BONES/JOINTS: No acute fracture or subluxation. Narrowing of the AC joint space. SOFT TISSUES: Soft tissue calcification adjacent to the greater tubercle consistent with calcific tendinitis. No soft tissue swelling or gas. No radiopaque foreign body. RAD/Shoulder min 2 Views IMPRESSION: No acute abnormality. Chronic changes as described. Electronically Signed: Nils Wilks MD at 16:27 EDT ,
== END 2022-07-03 16:31 | disposition home or self-care (01) ==
PROVIDERS: Emergency Provider Emergency Medicine; PCP Family Medicine; Visit Provider Emergency Medicine
DX: S46.019A Strain of muscle(s) and tendon(s) of the rotator cuff of unspecified shoulder, initial encounter (principal); G20 Parkinson's disease; J44.9 Chronic obstructive pulmonary disease, unspecified; G40.909 Epilepsy, unspecified, not intractable, without status epilepticus; E11.9 Type 2 diabetes mellitus without complications; Z79.4 Long term (current) use of insulin; I10 Essential (primary) hypertension; E78.5 Hyperlipidemia, unspecified; M77.8 Other enthesopathies, not elsewhere classified; K21.9 Gastro-esophageal reflux disease without esophagitis; Z79.899 Other long term (current) drug therapy; J45.909 Unspecified asthma, uncomplicated; F32.A Depression, unspecified; E03.9 Hypothyroidism, unspecified; K58.9 Irritable bowel syndrome, unspecified; Z86.718 Personal history of other venous thrombosis and embolism; Z79.01 Long term (current) use of anticoagulants; Z86.711 Personal history of pulmonary embolism
CPT/HCPCS: 73030; 99282

== ENCOUNTER → 2022-07-05 | Outpatient (CLI) | payer MEDICARE, SELFPAY ==
--- NOTE | 2022-07-05 13:06 | BI_ITS ---
MAMMOGRAPHY - BILATERAL SCREENING REASON FOR EXAM: Female, 77 years old. Routine annual screening examination. PERTINENT HISTORY: Aunt with breast cancer. TECHNIQUE: Digital bilateral breast ashley (3D mammographic acquisition) in the CC and MLO projections. 2-D mediolateral oblique (MLO) and craniocaudad (CC) views of both breasts were obtained. CAD: Full Field Digital Mammography with Computer Added Detection was performed. COMPARISON: Comparison is made with prior study dated December 19, 2018 and September 01, 2016. FINDINGS: Breast Composition: The breasts are heterogeneously dense, which may obscure small masses. There are no dominant masses or suspicious calcifications. No other significant abnormalities are identified. There has been no significant change since the prior study. BI/SCRN MAMM (CAD)W/ASHLEY BILAT IMPRESSION: Stable bilateral screening mammogram. Yearly follow-up mammogram recommended. (A) ASSESSMENT CATEGORY: BIRADS Category 1: Negative. A letter regarding these results will be sent to the patient by the facility within 30 days. Approximately 10% of breast cancers are not detected by mammography. A normal mammogram should not delay biopsy of a clinically suspicious abnormality. [id number] Electronically Signed: Zion Chen MD at 14:31 EDT ,
--- NOTE | 2022-07-05 13:18 | BD_ITS ---
STUDY: DUAL ENERGY X-RAY ABSORPTIOMETRY / DXA REASON FOR EXAM: Female, 77 years old. M810 TECHNIQUE: Bone Mineral Density (BMD) measurements of both forearms were obtained. COMPARISON: None. FINDINGS: Right Forearm: g/cm2 (0.489) / T-score (-1.7) / Z-score (1.2) Left Forearm: g/cm2 (0.487) / T-score (-1.7) / Z-score (1.2) BD/Dexa Bone Density/Append Skel IMPRESSION: The patient is considered osteopenic as outlined below according to World Naren Organization (WHO) criteria with a moderate fracture risk. Reference Information: The T-score is the number of standard deviations above or below the standard which is normal for young adults at their peak bone mineral density. The World Health Organization (WHO) interprets the T-scores as follows: Above -1 Normal bone density Between -1 and -2.5 Osteopenia Equal to / or below -2.5 Osteoporosis As a practical clinical guideline, osteopenia may be graded as follows: Mild -1 through -1.5 Moderate -1.6 through -2.0 Severe -2.1 through -2.4 The Z-score is the number of standard deviations above or below age-matched controls. A Z-score of less than -1.5 would be considered abnormal. References: 1. NIH Osteoporosis and Related Bone Diseases www osteo.org 2. International Society for Clinical Densitometry www iscd.org 3. National Osteoporosis Foundation www nof.org Electronically Signed: Zion Chen MD at 12:53 EDT ,
== END | disposition home or self-care (01) ==
PROVIDERS: PCP Family Medicine; Referring Provider Family Medicine; Visit Provider Family Medicine
DX: Z12.31 Encounter for screening mammogram for malignant neoplasm of breast (principal); M81.0 Age-related osteoporosis without current pathological fracture; Z80.3 Family history of malignant neoplasm of breast
CPT/HCPCS: 77063; 77067; 77081

== ENCOUNTER → 2022-08-04 | Outpatient (CLI) | payer MEDICARE, SELFPAY ==
[2022-08-04 17:47] LABS: Potassium 3.8 mmol/L (3.5-5.1)
== END | disposition home or self-care (01) ==
LOC: BFHLAB 14:07
PROVIDERS: PCP Family Medicine; Referring Provider Family Medicine; Visit Provider Family Medicine
DX: E87.6 Hypokalemia (principal)
CPT/HCPCS: 36415; 84132

== ENCOUNTER → 2022-08-19 | Outpatient (CLI) | payer MEDICARE, SELFPAY ==
--- NOTE | 2022-08-19 16:21 | CT_ITS ---
STUDY: CT ORBITS WITH CONTRAST REASON FOR EXAM: Female, 77 years old. ANTERIOR ORBITAL MASS RIGHT RADIATION DOSAGE (If Supplied By Facility): CTDIvol = ( 67.58 ) mGy, DLP = ( 717.63 ) mGycm TECHNIQUE: The patient was scanned in a multi detector CT scanner. Transaxial imaging was performed following the intravenous administration of IV 100mL Isovue-370. Sagittal and coronal images were reconstructed. Individualized dose optimization techniques were used for this CT. COMPARISON: None. FINDINGS: Postsurgical changes status post bilateral cataract surgery and lens placement.. Normal intraconal spaces. Normal optic nerve sheath complex. Normal bilateral extraocular muscles. Normal lacrimal glands. Normal bilateral medial and inferior orbital burns. Normal bilateral maxillary bones. Normal bilateral frontozygomatic arches. Normal bilateral zygomatic temporal arches. Normal frontal sinus. Normal ethmoidal sinuses. Minor mucosal thickening of the right maxillary sinus.. Normal sphenoid sinuses. Normal soft tissue structures. There is no demonstrated abnormal enhancement. CT/Orb Sella Post Fossa Ear W/CON IMPRESSION: Postop change status post bilateral cataract surgery. No definitive evidence for intraorbital mass. MRI recommended for more definitive evaluation. Electronically Signed: Yang Lopez MD at 20:21 EDT ,
[2022-08-19 16:50] LABS: CREATININE FINGERSTICK < 0.9 mg/dL (0.55-1.02); EGFR FINGERSTICK > 60.0000 mL/min (>60)
== END | disposition home or self-care (01) ==
LOC: CT 16:16
PROVIDERS: PCP Family Medicine; Referring Provider Ophthalmology; Visit Provider Ophthalmology
DX: H05.9 Unspecified disorder of orbit (principal)
CPT/HCPCS: 70481; Q9967

== ENCOUNTER → 2022-08-23 | Outpatient (CLI) | payer MEDICARE, SELFPAY ==
[2022-08-23 12:46] LABS: Erythrocyte Sedimentation Rate 9 mm/hr (0-30)
== END | disposition home or self-care (01) ==
PROVIDERS: PCP Family Medicine; Referring Provider Family Medicine; Visit Provider Family Medicine
DX: E87.6 Hypokalemia (principal); R51.9 Headache, unspecified
CPT/HCPCS: 36415; 85652

== ENCOUNTER → 2022-08-31 | Outpatient (CLI) | payer MEDICARE, SELFPAY ==
--- NOTE | 2022-08-31 09:39 | US_ITS ---
INDICATION: L CERVIAL ADENOPATHY EXAMINATION: Ultrasound US Head/Neck Soft Tissue TECHNIQUE: Leonard scale and color doppler imaging was performed of the neck soft tissues. COMPARISON: None. FINDINGS: Limited images in the area of clinical concern left posterolateral neck. Focal hypoechoic nodule corresponding to palpable abnormality measures 1.7 x 0.5 x 1.7 cm, likely lymph node. No localized collection. US/Head/Neck Soft Tissue IMPRESSION: 1.7 cm hypoechoic nodule corresponding to palpable abnormality probable lymph node. Further evaluation with CT and/or MRI may be helpful as clinically indicated. Electronically Signed: Julisa Whitehead MD at 2:35 EDT ,
== END | disposition home or self-care (01) ==
LOC: US 09:35
PROVIDERS: PCP Family Medicine; Referring Provider Family Medicine; Visit Provider Family Medicine
DX: R59.0 Localized enlarged lymph nodes (principal)
CPT/HCPCS: 76536

== ENCOUNTER 2022-09-13 13:43 | Emergency (ER) | payer MEDICARE, SELFPAY ==
[2022-09-13 13:43] VITALS: BP 107/69; PULSE 90; RESP 18; TEMP 36.1; O2SAT 98
[2022-09-13 13:52] VITALS: BMI 26.6
--- NOTE | 2022-09-13 14:02 | RAD_ITS ---
STUDY: X-RAY - LEFT TIBIA AND FIBULA REASON FOR EXAM: Female, 77 years old. Pain following a fall. TECHNIQUE: 2 view(s) of the tibia and fibula were obtained. COMPARISON: None. FINDINGS: Normal visualized tibia. Normal visualized fibula. Plantar spur Pretibial soft tissue swelling. RAD/Tibia & Fibula 2 Views IMPRESSION: Pretibial soft tissue swelling. Electronically Signed: Zion Chen MD at 15:08 EDT ,
[2022-09-13] MEDS: HYDROcodone Bitartrate/Apap 5/325 Tablet PO (14:07)
--- NOTE | 2022-09-13 14:12 | EDS_ITS ---
HPI History of Present Illness Chief Complaint: Lower Extremity Injury Detail of Chief Complaint: Pelvic pain and left leg pain status post fall Informant: patient Onset/Context/Timing Onset: Days Mechanism/Context: Blunt Injury and Fall Location of pain/injuries: Left lower leg Quality of Pain: Dull and Aching Location: Pelvis and left leg Current Severity: Mild Maximum Severity: Severe Worsened by: Weightbearing Relieved by: Improves if patient elevates the leg. Associated Symptoms Associated Symptoms: Negative for Parasthesias, Weakness, Loss of function, Inability to ambulate, Loss of consciousness or Amnesia Narrative Narrative: Patient is a 77-year-old woman on Eliquis for atrial fibrillation. She was sitting on her chair this past weekend. She states the porch is uneven. She tipped and fell with with initial impact on the right side. She complains of pain that she localizes near the right ischial tuberosity and also complains of left leg pain. She states she has increased pain with weightbearing. She denies head trauma. She denies headache. She denies visual, ocular auditory symptoms. She denies neck pain. She denies paresthesia, anesthesia or motor weakness. She denies a stat this. She denies dental trauma. She denies difficulty opening closing her mouth. She denies cardiac or respiratory symptoms. She denies GI symptoms. She specifically denies black or maroon- colored stool. She denies blood in her urine. Prior similar symptoms: No Recent Illness/Hospitalization: No [facility] Medical History Asthma COPD (chronic obstructive pulmonary disease) Depression Diabetes mellitus type II, controlled Edema Esophageal spasm Essential hypertension GERD (gastroesophageal reflux disease) Hiatal hernia History of basal cell carcinoma (BCC) History of DVT (deep vein thrombosis) History of pulmonary embolism Hyperlipidemia Hypothyroidism IBS (irritable bowel syndrome) Kidney disease Lumbar back pain Lung disease Obesity (BMI 30.0-34.9) JHONY (obstructive sleep apnea) Osteoarthritis Parkinsons disease Premature atrial contractions Seizure disorder Sleep apnea Symptomatic bradycardia Venous insufficiency Home Medications omeprazole 20 mg capsule,delayed release 20 mg PO DAILY ACID REFLUX 06/19/17 [History Last Taken 08/31/21] cholecalciferol (vitamin D3) 25 mcg (1,000 unit) tablet 5,000 unit PO DAILY SUPPLEMENT 07/28/17 [History Last Taken 08/30/21] simvastatin 20 mg tablet 20 mg PO QHS 90 days #90 tabs 09/01/17 [History Last Taken 08/30/21] albuterol sulfate 90 mcg/actuation aerosol inhaler 2 puff inhalation Q4H PRN Sob &/Or Wheezing 12/04/20 [History Last Taken Unknown] canagliflozin 300 mg tablet (Invokana) 300 mg PO QAM 12/04/20 [History Last Taken 08/31/21] duloxetine 60 mg capsule,delayed release 60 mg PO DAILY 12/04/20 [History Last Taken 08/30/21] zinc gluconate 30 mg tablet 30 mg PO DAILY 12/04/20 [History Last Taken 08/30/21] furosemide 40 mg tablet 40 mg PO BID #180 tabs 01/18/21 [Rx Last Taken 08/31/21] inhalational spacing device (POCKET CHAMBER spacer) #1 ea 01/23/21 [Rx Last Taken Unknown] diphenhydramine HCl 25 mg capsule (Benadryl) 25 mg PO QHS PRN Insomnia 06/02/21 [History Last Taken 08/30/21] insulin glargine 100 unit/mL (3 mL) subcutaneous pen (Lantus Solostar U-100 Insulin) 40 unit subcut QAM 06/02/21 [History Last Taken 08/31/21] topiramate 25 mg tablet 50 mg PO BID 06/02/21 [History Last Taken 08/31/21] ascorbic acid (vitamin C) 500 mg tablet 500 mg PO DAILY SUPPLEMENT 08/31/21 [History Last Taken 08/30/21] levothyroxine 100 mcg tablet 100 mcg PO DAILY THYROID 08/31/21 [History Last Taken 08/31/21] lubiprostone 24 mcg capsule 24 mcg PO BIDCM 08/31/21 [History Last Taken 08/31/21] spironolactone 50 mg tablet 50 mg PO DAILY #90 tabs 11/08/21 [Rx Last Taken Unknown] ondansetron 4 mg disintegrating tablet 4 mg PO Q6H PRN nausea and vomiting #10 tabs 03/22/22 [Rx Last Taken Unknown] acetaminophen 500 mg tablet 1,000 mg PO Q4H PRN fever or pain 04/12/22 [History Last Taken Unknown] pramipexole 1 mg tablet 1 mg PO BID 04/12/22 [History Last Taken Unknown] potassium citrate 5 mEq (540 mg) tablet,extended release 5 meq PO DAILY 05/18/22 [History Last Taken Unknown] apixaban 5 mg tablet (Eliquis) 5 mg PO BID #60 tabs 07/21/22 [Rx Last Taken Unknown] hydrocodone-acetaminophen 5-325mg 5mg-325mg 1 tab PO Q6H PRN PRN Pain 3 days #10 TABLETS 09/13/22 [Rx Last Taken Unknown] Allergy/AdvReac Type Severity Reaction Status Date / Time nitrofurantoin Allergy Hives Verified 09/13/22 13:45 macrocrystalline [From Macrodantin] tree and shrub pollen Allergy Hives Verified 09/13/22 13:45 rosuvastatin [From Crestor] AdvReac Severe Muscle Verified 09/13/22 13:45 weakness colesevelam [From WelChol] AdvReac Intermediate nausea Verified 09/13/22 13:45 nitrofurantoin AdvReac Intermediate Hives Verified 09/13/22 13:45 [From Furadantin] metformin AdvReac Unknown Gi side Verified 09/13/22 13:45 effects milk [dairy] AdvReac Upset Verified 09/13/22 13:45 Stomach Family History Father CAD (coronary artery disease) Diabetes Myocardial infarction Alzheimers disease Hypertension Parkinson's disease Cancer melanoma History of blood clots Mother Diabetes AAA (abdominal aortic aneurysm) Bleeding disorder Colon cancer Thyroid disorder Brother Multiple sclerosis Skin cancer Surgical History History of cholecystectomy History of lumbar fusion (~2012) History of Belkys fundoplication History of right hip replacement (~07/08/15) History of tonsillectomy and adenoidectomy Hx of hernia repair Hx of lumbar discectomy Social History (Updated 09/13/22 @ 14:[address] Baljeet Fang MD) household members: none Smoking Status: Never smoker alcohol intake: never substance use type: does not use diet: diabetic and gluten free caffeine: No what type of physical activity do you participate in: none seatbelt use: always do you feel safe at home: Yes ROS ROS ED Constitutional Constitutional ED: Denies chills, fever(s), subjective, sweats or weight loss Eyes Eyes: Denies blurry vision or change in vision ENT ENT ED: Denies ear pain, rhinorrhea or sore throat Cardiovascular Cardiovascular: Denies chest pain Respiratory/Chest Respiratory/Chest: Denies cough or dyspnea Gastrointestinal Gastrointestinal: Denies abdominal pain, nausea or vomiting Genitourinary Genitourinary ED: Denies hematuria Musculoskeletal Musculoskeletal: Denies back pain or neck pain Integumentary Denies abscess, Abrasions or rash Neurologic Neurologic: Denies headache(s), paresthesias or weakness Psychiatric Psychiatric: Denies anxiety Endocrine Endocrinology: Denies cold intolerance or heat intolerance Hematologic/Lymphatic Hematologic/Lymphatic: Denies easy bleeding or easy bruising EXAM Physical Exam Const Vital Signs: 09/13/22 13:43 Temperature 96.9 F L Temperature Source Temporal Pulse Rate 90 Respiratory Rate 18 Blood Pressure 107/69 Blood Pressure Mean 81 Pulse Ox 98 Oxygen Delivery Method Room Air Positive well nourished and well developed General Appearance ED: well developed and NAD HEENT Reports TM's clear HEENT Narrative: Head is normocephalic. There is no septal deviation or hematoma. There is no TMJ tenderness right or left. There is no clinical findings of basilar skull fracture. atraumatic Nose: Negative for septum abnormal Tympanic Membrane ED: Yes TM's clear Eyes PERRL and EOMs intact bilaterally General Eye ED: Yes other Other Details: There is no subconjunctival hemorrhage. There is no evidence of trauma. Neck full ROM Neck Narrative: C-spine was cleared per Nexus criteria. General: Negative for tenderness Chest Wall palpation of chest normal Resp normal respiratory effort and clear to auscultation bilaterally Cardio no murmurs Rate: regular rate Rhythm: abnormal rhythm irregularly irregular GI normal to inspection, nondistended, normoactive bowel sounds, non-tender, non- distended and no masses Inspection: Negative for abdominal distention Palpation: soft Back/Spine normal to inspection Back/Spine Narrative: There is pain outpatient over the right ischial tuberosity and left SI joint. Extremity Extremity Narrative: DP pulses 1-2+ and symmetric. There is no pain ovation of the toes, metatarsals, tarsal bones. There is no pain ovation of the lateral medial malleolus. There is no joint line tenderness left tibial plateau. Patella is not ballotable. There is no effusion. There is pain outpatient over the anterior mid left leg and specifically over the tibia and fibula. There is no palpable cords. There is no leg vein distention. There is no discoloration. There is no pain the patient over the left greater trochanter enteric region. There is no shortening of the extremity. Patient is able to lift her right and left leg off the bed. General Extremety ED: Negative for deformity or edema General Extremity: Negative for deformity or edema Neuro oriented x3, CN's II-XII intact bilaterally, moves all extremities, no focal motor deficits and no sensory deficits noted Arslan Coma Scale: document GCS findings Spontaneous Obeys Commands Oriented 15 Sensorium / Orientation: alert Plantar Reflex: Downgoing: bilateral (There was no clonus.) Psych mental status grossly normal and thought process normal Skin no rashes or lesions noted, no wounds, No skin turgor normal and no jaundice MDM MDM MDM Narrative Medical decision making narrative: Since the head trauma even though patient is on anticoagulant and there is no evidence of head trauma imaging of the head was not obtained. C-spine was clear ed per Nexus criteria. Since there is pain to palpation over the left tibia and fibula patient reports pain with weightbearing will obtain x-ray to evaluate for fracture. Because patient has pain the patient over the right ischial tuberosity will obtain a pelvic x-ray to evaluate for pelvic fracture. Patient received p.o. opiate for her pain. Since there are no abrasions or lacerations tetanus was not updated. Review of prior records indicates patient has history of pulmonary embolus, atrial fibrillation, essential hypertension, hyperlipidemia. History & Record Review Additional record(s) reviewed:: Prior outpatient record, Prior ED visit and Prior labs Radiography Chest X-Ray - ED: 1 View (Single view x-ray of the pelvis reveals bilateral total hip arthroplasty. There is no evidence of pelvic fracture. There is no evidence of this dislocation of either prosthesis. This is independent reviewed interpreted by me at 1428) and 2 View (2 view x-ray of the left tibia-fibula reveals no evidence of fracture, soft tissue swelling, foreign body etc.) Treatment and Re-Evaluation Narrative: Patient and daughter was in the room. They were informed of results. They were informed of plan. Patient cannot take NSAIDs she is on anticoagulant. Discharge Plan Triage Chief Complaint: Lower Extremity Injury ED Provider: Fang,Baljeet Dx/Rx/DC Orders Clinical Impression: Injury due to fall, Contusion of pelvis, Contusion of left leg, Anticoagulant long-term use Instructions: ED Contusion, Lower Extremity Prescriptions: New hydrocodone-acetaminophen [hydrocodone-acetaminophen] 5-325 mg tablet 1 tab PO Q6H PRN PRN (Reason: Pain) 3 Days Qty: 10 0RF No Action omeprazole 20 mg capsule,delayed release(DR/EC) 20 mg PO DAILY simvastatin 20 mg tablet 20 mg PO QHS 90 Days Qty: 90 Label Comments: TAKE 1 TABLET BY MOUTH EVERY DAY duloxetine 60 mg capsule,delayed release(DR/EC) 60 mg PO DAILY Invokana 300 mg tablet 300 mg PO QAM zinc gluconate 30 mg tablet 30 mg PO DAILY Lantus Solostar U-100 Insulin 100 unit/mL (3 mL) insulin pen 40 unit subcut QAM furosemide 40 mg tablet 40 mg PO BID Qty: 180 3RF topiramate 25 mg tablet 50 mg PO BID diphenhydramine HCl [Benadryl] 25 mg capsule 25 mg PO QHS PRN (Reason: Insomnia) potassium citrate 5 mEq (540 mg) tablet extended release 5 meq PO DAILY albuterol sulfate 90 mcg/actuation HFA aerosol inhaler 2 puff inhalation Q4H PRN (Reason: Sob &/Or Wheezing) cholecalciferol (vitamin D3) 1,000 UNIT tablet 5,000 unit PO DAILY (DME) POCKET CHAMBER Spacer See Rx Instructions .ROUTE .MEDSUPPLY Qty: 1 0RF Rx Instructions: As directed levothyroxine 100 mcg tablet 100 mcg PO DAILY Label Comments: TAKE 1 TABLET BY MOUTH EVERY DAY ascorbic acid (vitamin C) 500 mg Tablet 500 mg PO DAILY lubiprostone 24 mcg capsule 24 mcg PO BIDCM Label Comments: Take 1 capsule by mouth twice daily with meals. ondansetron 4 mg tablet,disintegrating 4 mg PO Q6H PRN (Reason: nausea and vomiting) Qty: 10 0RF acetaminophen 500 mg tablet 1,000 mg PO Q4H PRN (Reason: fever or pain) pramipexole 1 mg Tablet 1 mg PO BID spironolactone 50 mg tablet 50 mg PO DAILY Qty: 90 2RF Eliquis 5 mg tablet 5 mg PO BID Qty: 60 12RF Primary Care Provider: Gael Garza Referrals: Gael Garza DO [Primary Care Provider] - 1 Week if not improving Activity Restrictions/Additional Instructions: Apply ice 20 to 30 minutes per application 6-10 times a day for the next 3 to 5 days. Disposition Disposition: Home, Self Care
--- NOTE | 2022-09-13 14:25 | RAD_ITS ---
STUDY: X-RAY - PELVIS REASON FOR EXAM: Female, 77 years old. Injury/Pain. Following a fall. TECHNIQUE: One view of the pelvis was obtained. COMPARISON: Comparison is made with prior radiograph dated September 02, 2021. FINDINGS: Moderate amount of fecal material is seen in the colon. Normal visualized soft tissue structures. There is narrowing with cortical sclerosis and osteophyte formation of the sacroiliac joint consistent with degenerative osteoarthritic changes. Normal visualized bilateral superior and inferior pubic rami. There are degenerative changes of the pubic symphysis with articular narrowing and sclerosis. Normal ischial tuberosities. The patient is status post bilateral total hip replacement. There is good alignment. Multilevel fusion of the visualized lower lumbar spine. RAD/Pelvis 1 or 2 Views IMPRESSION: Status post bilateral total replacement. No acute abnormality is seen. Electronically Signed: Zion Chen MD at 15:08 EDT ,
[2022-09-13 14:59] VITALS: BP 110/80
== END 2022-09-13 15:01 | disposition home or self-care (01) ==
PROVIDERS: Emergency Provider Emergency Medicine; PCP Family Medicine; Visit Provider Emergency Medicine
DX: S30.0XXA Contusion of lower back and pelvis, initial encounter (principal); G20 Parkinson's disease; J44.9 Chronic obstructive pulmonary disease, unspecified; I48.91 Unspecified atrial fibrillation; E11.9 Type 2 diabetes mellitus without complications; E78.5 Hyperlipidemia, unspecified; W07.XXXA Fall from chair, initial encounter; S80.12XA Contusion of left lower leg, initial encounter; Z79.01 Long term (current) use of anticoagulants; I10 Essential (primary) hypertension; Y92.89 Other specified places as the place of occurrence of the external cause; K21.9 Gastro-esophageal reflux disease without esophagitis; J45.909 Unspecified asthma, uncomplicated; Z79.899 Other long term (current) drug therapy; F32.A Depression, unspecified; E03.9 Hypothyroidism, unspecified; K58.9 Irritable bowel syndrome, unspecified; R60.9 Edema, unspecified; Z90.49 Acquired absence of other specified parts of digestive tract; Z96.641 Presence of right artificial hip joint
CPT/HCPCS: 72170; 73590; 99282

== ENCOUNTER → 2022-09-22 | Outpatient (CLI) | payer MEDICARE, SELFPAY ==
--- NOTE | 2022-09-22 07:14 | CT_ITS ---
STUDY: CT SOFT TISSUE NECK WITH CONTRAST REASON FOR EXAM: Female, 77 years old. ENLARGED LYMPH NODE RADIATION DOSAGE (If Supplied By Facility): CTDIvol = ( 12.82 ) mGy, DLP = ( 342.58 ) mGycm TECHNIQUE: The patient was scanned in a multi-detector CT scanner. High resolution transaxial imaging was performed following intravenous administration of IV 75mL Isovue-370. Sagittal and coronal images were reconstructed. Individualized dose optimization techniques were used for this CT. COMPARISON: Comparison is made with prior sonogram of the neck dated August 31, 2022. FINDINGS: Normal bilateral parotid glands. Normal bilateral darklight inspector spaces. Normal bilateral parapharyngeal spaces. Normal bilateral carotid spaces. Normal bilateral sublingual and submandibular glands and spaces. Normal visualized nasopharynx. Normal retropharyngeal space. Normal perivertebral space. Normal visualized bilateral faucial tonsils. The visualized tongue, tongue base and oropharynx are normal. There are minimally enlarged lymph nodes of the neck, with preservation of normal isaiah architecture, consistent with a reactive lymph hyperplasia. There is no demonstrated solid or cystic mass lesion. There is no abnormal contrast enhancement. Normal epiglottis, bilateral vallecula and hypopharynx. The pre-epiglottic and paraglottic adipose spaces are normal. Normal visualized bilateral piriform sinuses, aryepiglottic folds, vocal cords, and arytenoid-cricoid articulations. Normal subglottic trachea. Normal bilateral lobes of the thyroid gland. Normal visualized pulmonary apices. Normal visualized paranasal sinuses. There is multilevel degenerative changes of the cervical spine. CT/Soft Tissue Neck WITH Contrast IMPRESSION: No acute abnormality is seen. Electronically Signed: Zion Chen MD at 12:50 EDT ,
[2022-09-22 07:39] LABS: CREATININE FINGERSTICK < 0.9 mg/dL (0.55-1.02); EGFR FINGERSTICK > 60.0000 mL/min (>60)
== END | disposition home or self-care (01) ==
LOC: CT 07:13
PROVIDERS: PCP Family Medicine; Referring Provider Family Medicine; Visit Provider Family Medicine
DX: R59.0 Localized enlarged lymph nodes (principal)
CPT/HCPCS: 70491; Q9967

== ENCOUNTER → 2022-12-07 | Outpatient (CLI) | payer MEDICARE, SELFPAY ==
--- NOTE | 2022-12-07 09:48 | RAD_ITS ---
STUDY: X-RAY - UNILATERAL RIBS ( LEFT ) WITH CHEST REASON FOR EXAM: Female, 77 years old. Pain. TECHNIQUE - RIBS: 2 view(s) of the ribs. TECHNIQUE - CHEST: Single frontal view of the chest. COMPARISON: Chest dated March 2022. FINDINGS - RIBS: Osteopenia of the osseous structures. No displaced rib fracture identified. FINDINGS - CHEST: Stable cardiomegaly, aortic tortuosity with calcification, normal pulmonary hilar structures and mild hyperinflation. Scattered healed parenchymal granulomatous calcifications unchanged. Increase in size of hiatal hernia. No abnormality of the visualized soft tissue structures of the upper abdomen. RAD/Ribs Uni Min 3V w/PA Chest IMPRESSION: RIBS: Osteopenia with no displaced rib fracture identified. CHEST: Granulomatous calcifications with cardiomegaly. No active or acute cardiopulmonary disease. Electronically Signed: Te Cerrato MD at 10:18 EDT ,
== END | disposition home or self-care (01) ==
PROVIDERS: PCP Family Medicine; Referring Provider Physician Assistant; Visit Provider Physician Assistant
DX: R07.81 Pleurodynia (principal)
CPT/HCPCS: 71101

== ENCOUNTER 2023-02-15 18:51 | Emergency (ER) | payer MEDICARE, SELFPAY ==
[2023-02-15 18:52] VITALS: BP 126/76; PULSE 80; RESP 18; TEMP 36; O2SAT 100
--- NOTE | 2023-02-15 19:06 | EKG12_ITS ---
Test Reason : DYSRHYTHMIA Blood Pressure : / mmHG Vent. Rate : 067 BPM Atrial Rate : 067 BPM P-R Int : 212 ms QRS Dur : 088 ms QT Int : 382 ms P-R-T Axes : 016 003 042 degrees QTc Int : 403 ms Sinus rhythm with 1st degree A-V block Otherwise normal ECG Confirmed by LINA VILLA, ANDREI ([id number]), assignment desk editor JED KNOTT ([id number]) on 02/27/2023 8:01:03 AM Referred By: Confirmed By:ABDIRIZAK MILLS MD
--- NOTE | 2023-02-15 19:06 | RAD_ITS ---
INDICATION: Stroke EXAMINATION/TECHNIQUE: X-RAY - XR Chest 1 View COMPARISON: 12/07/2022 FINDINGS: LINES/DEVICES: None. LUNGS: No consolidation, edema or effusion. No pneumothorax. MEDIASTINUM AND CARDIOVASCULAR STRUCTURES: Cardiac silhouette stable within normal limits with stable retrocardiac hiatal hernia. BONES AND SOFT TISSUES: No acute changes. RAD/Chest 1 View (Portable) IMPRESSION: No radiographic evidence of acute cardiopulmonary disease. Electronically Signed: Ru Hernandez MD at 19:47 EDT ,
[2023-02-15 19:29] LABS: Absolute Lymphocyte Count 1.53 X10^3/uL (0.83-4.51); Basophil# 0.06 X10^3/uL; Basophil% 0.8 % (0-1); Eosinophil# 0.14 X10^3/uL; Eosinophils% 1.9 % (0-5); Hematocrit 39.8 % (37-47); Hemoglobin 12.8 g/dL (12.0-15.0); Lymphocyte # 1.53 X10^3/ul (0.83-4.51); Lymphocyte % 20.9 % (19-41); Mean Corp Hgb Conc 32.2 g/dL (32-36); Mean Corpuscular Hgb 31.1 pg (27.0-32.0); Mean Corpuscular Volume 96.8 fL (81-99); Mean Platelet Vol. 10.1 fl (6.2-12.0); Monocyte# 0.56 X10^3/uL; Monocyte% 7.6 % (0-10); NRBC Flagged by Analyzer 0 % (0-5); Neutrophil # 5.02 X10^3/uL (2.7-7.7); Neutrophil % 68.5 % (47-70); Platelet Count 312 K/mm3 (150-450); RBC Distribution Width CV 12.3 % (11.6-14.6); RBC Distribution Width SD 43.9 fl (35.1-43.9); Red Blood Count 4.11 M/mm3 (4.2-5.4); White Blood Count 7.3 K/mm3 (4.4-11.0)
[2023-02-15 19:48] LABS: International Normalized Ratio 0.9; Partial Thromboplast Time 31.4 Seconds (24.1-36.2); Prothrombin Time (Protime)PT. 12.4 SECONDS (11.7-14.9)
--- NOTE | 2023-02-15 19:49 | EDS_ITS ---
HPI <MAGGIE Soto - Last Filed: 02/15/23 21:02> History of Present Illness Chief Complaint: Dizziness Narrative Narrative: 77-year-old female with PMH of HLD, A-fib on Eliquis, DM2, Parkinson's, hypothyroidism presents with lightheadedness. Over the last month she intermittently feel lightheaded for an hour or so and it resolves. When she woke up at 8 AM today she has felt lightheaded like she may pass out and it has been persistent. There is no aggravating or alleviating factors. She denies room spinning or vertiginous symptoms. She had 15 minutes of chest pain earlier this morning which resolved. No shortness of breath, nausea or vomiting, recent fever or illness. She states she recently restarted pramipexole for her Parkinson's tremors. PFSH <MAGGIE Soto - Last Filed: 02/15/23 21:02> [facility] Medical History (Updated 02/15/23 @ 23:[address] Thomas Alegre, DO) Asthma COPD (chronic obstructive pulmonary disease) Depression Diabetes mellitus type II, controlled Edema Esophageal spasm Essential hypertension GERD (gastroesophageal reflux disease) Hiatal hernia History of basal cell carcinoma (BCC) History of DVT (deep vein thrombosis) History of pulmonary embolism Hyperlipidemia Hypothyroidism IBS (irritable bowel syndrome) Kidney disease Left-sided chest wall pain Lumbar back pain Lung disease Obesity (BMI 30.0-34.9) JHONY (obstructive sleep apnea) Osteoarthritis Parkinsons disease Premature atrial contractions Seizure disorder Sleep apnea Symptomatic bradycardia Venous insufficiency Home Medications omeprazole 20 mg capsule,delayed release 20 mg PO DAILY ACID REFLUX 06/19/17 [History Last Taken 08/31/21] cholecalciferol (vitamin D3) 25 mcg (1,000 unit) tablet 5,000 unit PO DAILY SUPPLEMENT 07/28/17 [History Last Taken 08/30/21] simvastatin 20 mg tablet 20 mg PO QHS 90 days #90 tabs 09/01/17 [History Last Taken 08/30/21] albuterol sulfate 90 mcg/actuation aerosol inhaler 2 puff inhalation Q4H PRN Sob &/Or Wheezing 12/04/20 [History Last Taken Unknown] duloxetine 60 mg capsule,delayed release 60 mg PO DAILY 12/04/20 [History Last Taken 08/30/21] zinc gluconate 30 mg tablet 30 mg PO DAILY 12/04/20 [History Last Taken 08/30/21] furosemide 40 mg tablet 40 mg PO BID #180 tabs 01/18/21 [Rx Last Taken 08/31/21] inhalational spacing device (POCKET CHAMBER spacer) #1 ea 01/23/21 [Rx Last Taken Unknown] diphenhydramine HCl 25 mg capsule (Benadryl) 25 mg PO QHS PRN Insomnia 06/02/21 [History Last Taken 08/30/21] insulin glargine 100 unit/mL (3 mL) subcutaneous pen (Lantus Solostar U-100 Insulin) 40 unit subcut QAM 06/02/21 [History Last Taken 08/31/21] topiramate 25 mg tablet 50 mg PO BID 06/02/21 [History Last Taken 08/31/21] ascorbic acid (vitamin C) 500 mg tablet 500 mg PO DAILY SUPPLEMENT 08/31/21 [History Last Taken 08/30/21] levothyroxine 100 mcg tablet 100 mcg PO DAILY THYROID 08/31/21 [History Last Taken 08/31/21] lubiprostone 24 mcg capsule 24 mcg PO BIDCM 08/31/21 [History Last Taken 08/31/21] ondansetron 4 mg disintegrating tablet 4 mg PO Q6H PRN nausea and vomiting #10 tabs 03/22/22 [Rx Last Taken Unknown] acetaminophen 500 mg tablet 1,000 mg PO Q4H PRN fever or pain 04/12/22 [History Last Taken Unknown] potassium citrate 5 mEq (540 mg) tablet,extended release 5 meq PO DAILY 05/18/22 [History Last Taken Unknown] apixaban 5 mg tablet (Eliquis) 5 mg PO BID #60 tabs 07/21/22 [Rx Last Taken Unknown] hydrocodone-acetaminophen 5-325mg 5mg-325mg 1 tab PO Q6H PRN PRN Pain 3 days #10 TABLETS 09/13/22 [Rx Last Taken Unknown] spironolactone 50 mg tablet 25 mg (1/2 x 50 mg) PO DAILY #90 tabs 01/09/23 [Rx Last Taken Unknown] meclizine 25 mg tablet 25 mg PO TID PRN dizziness #30 tabs 02/15/23 [Rx Last Taken Unknown] Allergy/AdvReac Type Severity Reaction Status Date / Time nitrofurantoin Allergy Hives Verified 02/15/23 18:52 macrocrystalline [From Macrodantin] tree and shrub pollen Allergy Hives Verified 02/15/23 18:52 rosuvastatin [From Crestor] AdvReac Severe Muscle Verified 02/15/23 18:52 weakness colesevelam [From WelChol] AdvReac Intermediate nausea Verified 02/15/23 18:52 nitrofurantoin AdvReac Intermediate Hives Verified 02/15/23 18:52 [From Furadantin] metformin AdvReac Unknown Gi side Verified 02/15/23 18:52 effects Family History Father CAD (coronary artery disease) Diabetes Myocardial infarction Alzheimers disease Hypertension Parkinson's disease Cancer melanoma History of blood clots Mother Diabetes AAA (abdominal aortic aneurysm) Bleeding disorder Colon cancer Thyroid disorder Brother Multiple sclerosis Skin cancer Surgical History History of cholecystectomy History of lumbar fusion (~2012) History of Belkys fundoplication History of right hip replacement (~07/08/15) History of tonsillectomy and adenoidectomy Hx of hernia repair Hx of lumbar discectomy Social History household members: none Smoking Status: Never smoker alcohol intake: never substance use type: does not use diet: diabetic and gluten free caffeine: No what type of physical activity do you participate in: none seatbelt use: always do you feel safe at home: Yes ROS <MAGGIE Soto - Last Filed: 02/15/23 21:02> ROS ED ROS Narrative Constitutional: Negative for fever, chills, malaise. Eyes: Negative for visual change. CVS: Positive for chest pain. Negative for palpitations, syncope. Respiratory: Negative for shortness of breath, cough. GI: Negative for abdominal pain, nausea, vomiting, diarrhea, melena, hematochezia. : Negative for dysuria, frequency. Neuro: Negative for headache, motor/sensory dysfunction. EXAM <MAGGIE Soto - Last Filed: 02/15/23 21:02> Physical Exam Narrative Exam Narrative: CONST: Patient sitting in no acute distress. EYES: Normal inspection. ENT: Normal inspection, moist mucous membranes. NECK: Normal inspection. RESP: No respiratory distress, CTAB. CVS: Regular rate and rhythm, no murmur, no gallop. ABD: Soft and nontender, no guarding or rebound, nondistended. SKIN: Color normal, no rash, warm, dry, intact. EXTREMITIES: Normal appearance, no pedal edema. NEURO: Oriented x4. No drift, 5/5 upper and lower extremity strength, normal finger-nose bilaterally, normal gait. PSYCH: Normal affect. Const Vital Signs: 02/15/23 18:52 02/15/23 19:50 02/15/23 19:58 Temperature 96.8 F L Temperature Source Temporal Pulse Rate 80 Pulse Rate [Lying] Pulse Rate [Sitting (for 1 minute prior to obtaining)] Pulse Rate [Standing (for 1 minute prior to obtaining)] Respiratory Rate 18 Respiratory Effort Normal Non-Labored Blood Pressure 126/76 H Blood Pressure [Lying] Blood Pressure [Sitting (for 1 minute prior to obtaining)] Blood Pressure [Standing (for 1 minute prior to obtaining)] Blood Pressure Mean 92 Blood Pressure Mean [Lying] Blood Pressure Mean [Sitting (for 1 minute prior to obtaining)] Blood Pressure Mean [Standing (for 1 minute prior to obtaining)] Pulse Ox 100 Oxygen Delivery Method Room Air Room Air 02/15/23 20:04 02/15/23 21:31 02/15/23 23:32 Temperature Temperature Source Pulse Rate Pulse Rate [Lying] 60 Pulse Rate [Sitting (for 1 minute prior to obtaining)] 65 Pulse Rate [Standing (for 1 minute prior to obtaining)] 70 Respiratory Rate 16 16 Respiratory Effort Blood Pressure Blood Pressure [Lying] 116/53 L Blood Pressure [Sitting (for 1 minute prior to obtaining)] 139/65 H Blood Pressure [Standing (for 1 minute prior to obtaining)] 150/75 H Blood Pressure Mean Blood Pressure Mean [Lying] 74 Blood Pressure Mean [Sitting (for 1 minute prior to obtaining)] 89 Blood Pressure Mean [Standing (for 1 minute prior to obtaining)] 100 Pulse Ox Oxygen Delivery Method <Dr. Thomas Alegre, DO - Last Filed: 02/15/23 23:35> Physical Exam Const Vital Signs: 02/15/23 18:52 02/15/23 19:50 02/15/23 19:58 Temperature 96.8 F L Temperature Source Temporal Pulse Rate 80 Pulse Rate [Lying] Pulse Rate [Sitting (for 1 minute prior to obtaining)] Pulse Rate [Standing (for 1 minute prior to obtaining)] Respiratory Rate 18 Respiratory Effort Normal Non-Labored Blood Pressure 126/76 H Blood Pressure [Lying] Blood Pressure [Sitting (for 1 minute prior to obtaining)] Blood Pressure [Standing (for 1 minute prior to obtaining)] Blood Pressure Mean 92 Blood Pressure Mean [Lying] Blood Pressure Mean [Sitting (for 1 minute prior to obtaining)] Blood Pressure Mean [Standing (for 1 minute prior to obtaining)] Pulse Ox 100 Oxygen Delivery Method Room Air Room Air 02/15/23 20:04 02/15/23 21:31 02/15/23 23:32 Temperature Temperature Source Pulse Rate Pulse Rate [Lying] 60 Pulse Rate [Sitting (for 1 minute prior to obtaining)] 65 Pulse Rate [Standing (for 1 minute prior to obtaining)] 70 Respiratory Rate 16 16 Respiratory Effort Blood Pressure Blood Pressure [Lying] 116/53 L Blood Pressure [Sitting (for 1 minute prior to obtaining)] 139/65 H Blood Pressure [Standing (for 1 minute prior to obtaining)] 150/75 H Blood Pressure Mean Blood Pressure Mean [Lying] 74 Blood Pressure Mean [Sitting (for 1 minute prior to obtaining)] 89 Blood Pressure Mean [Standing (for 1 minute prior to obtaining)] 100 Pulse Ox Oxygen Delivery Method [facility] <MAGGIE Soto - Last Filed: 02/15/23 21:02> [facility] Narrative Medical decision making narrative: History gathered from: Patient and spouse Patient had a transient episode of chest pain this morning and persistent lightheadedness all day. She describes it as presyncope. She appears well and nontoxic. Vital signs are within normal limits. Orthostatic vital signs are negative?her blood pressure actually went up with standing but she does report feeling lightheaded her medical exam is unremarkable. She is neurologically intact and able to ambulate. CBC is within normal limits. BMP shows glucose of 177 with normal CO2 and anion gap, normal electrolytes and renal function. INR is 0.9. EKG is sinus rhythm with first-degree AV block at 67 bpm with no is chemic changes and troponin is normal at 5. Patient will be given a liter of IV fluids and reassessed. Lab Data Attestation: I reviewed the patient's lab results. Labs: Laboratory Results - last 24 hr 11/01/23 11/01/23 11/01/23 19:20 20:22 21:24 WBC 7.3 RBC 4.11 L Hgb 12.8 Hct 39.8 MCV 96.8 MCH 31.1 MCHC 32.2 RDW Std Deviation 43.9 RDW Coeff of Basilio 12.3 Plt Count 312 MPV 10.1 Immature Gran % (Auto) 0.300 Neut % (Auto) 68.5 Lymph % (Auto) 20.9 Pacific % (Auto) 7.6 Eos % (Auto) 1.9 Baso % (Auto) 0.8 Absolute Neuts (auto) 5.0 Absolute Lymphs (auto) 1.53 Nucleated RBC % 0 PT 12.4 INR 0.9 APTT 31.4 Sodium 139 Potassium 4.1 Chloride 109 H Carbon Dioxide 28.0 Anion Gap 2 L BUN 21 H Creatinine 0.81 Est GFR (MDRD) Af Amer 87 Est GFR (MDRD) Non-Af 72 BUN/Creatinine Ratio 25.9 H Glucose 177 H Calcium 9.5 Troponin I High Sens 5 7 Urine Color Yellow Urine Clarity Clear Urine pH 7.0 Ur Specific [place] 1.010 Urine Protein 15 H Urine Glucose (UA) Normal Urine Ketones Negative Urine Occult Blood Negative Urine Nitrite Negative Urine Bilirubin Negative Urine Urobilinogen Normal Ur Leukocyte Esterase 500 H Urine RBC 0 SEEN Urine WBC 0-5 SEEN Ur Squamous Epith Cells 0 SEEN Ur Transition Epith Cell 5-10 SEEN Urine Bacteria 0 SEEN Urine Mucus 0 SEEN Radiography Diagnostic Testing: Clinical Impression(s) from Imaging Studies Chest X-Ray 02/15/23 19:06 IMPRESSION: No radiographic evidence of acute cardiopulmonary disease. Electronically Signed: Ru Hernandez MD at 19:47 EDT Reading Location ID and State: Counts include 234 beds at the [facility] / [place] Tel , Service support , ED attending interpretation of 1-view chest x-ray shows normal heart size, no acute infiltrate, edema, or effusion. EKG Initial EKG: Attestation: I personally reviewed and interpreted this EKG as follows: Interpretation: Sinus Rhythm <Dr. Thomas Alegre, DO - Last Filed: 02/15/23 23:35> MDM MDM Narrative Medical decision making narrative: History gathered from: Patient and spouse Patient had a transient episode of chest pain this morning and persistent lightheadedness all day. She describes it as presyncope. She appears well and nontoxic. Vital signs are within normal limits. Orthostatic vital signs are negative?her blood pressure actually went up with standing but she does report feeling lightheaded her medical exam is unremarkable. She is neurologically intact and able to ambulate. CBC is within normal limits. BMP shows glucose of 177 with normal CO2 and anion gap, normal electrolytes and renal function. INR is 0.9. EKG is sinus rhythm with first-degree AV block at 67 bpm with no ischemic changes and troponin is normal at 5. Patient will be given a liter of IV fluids and reassessed. This patient was seen with a PA/FRONT DESK ADMINISTRATOR Individually assessed they patient including history and physical. I have reviewed everything on the chart that is available and agree with the documentation provided by the PA/FRONT DESK ADMINISTRATOR including discussion about the assessment, treatment plan, discussion, and return precautions. Blood work is all within normal limits. High-sensitivity troponin initially 5 and delta troponin is 7. EKG reviewed by myself shows a sinus rhythm with first- degree block at 67 bpm. Chest x-ray my interpretation shows no acute process. The radiologist interprets this and agrees. On reevaluation I was able to elicit some vertiginous symptoms with the [place] so I did give her meclizine and Phenergan and on reevaluation she is feeling much better. I do believe this is part of the problem as well as she is stating lightheadedness. Patient will be put on meclizine for home. She is ambulated in the hallway and is stable. Return precautions were discussed. Impression: 1. Dizziness 2. Lightheadedness 3. Benign positional vertigo Lab Data Labs: Laboratory Results - last 24 hr 02/15/23 02/15/23 02/15/23 19:20 20:22 21:24 WBC 7.3 RBC 4.11 L Hgb 12.8 Hct 39.8 MCV 96.8 MCH 31.1 MCHC 32.2 RDW Std Deviation 43.9 RDW Coeff of Basilio 12.3 Plt Count 312 MPV 10.1 Immature Gran % (Auto) 0.300 Neut % (Auto) 68.5 Lymph % (Auto) 20.9 Pacific % (Auto) 7.6 Eos % (Auto) 1.9 Baso % (Auto) 0.8 Absolute Neuts (auto) 5.0 Absolute Lymphs (auto) 1.53 Nucleated RBC % 0 PT 12.4 INR 0.9 APTT 31.4 Sodium 139 Potassium 4.1 Chloride 109 H Carbon Dioxide 28.0 Anion Gap 2 L BUN 21 H Creatinine 0.81 Est GFR (MDRD) Af Amer 87 Est GFR (MDRD) Non-Af 72 BUN/Creatinine Ratio 25.9 H Glucose 177 H Calcium 9.5 Troponin I High Sens 5 7 Urine Color Yellow Urine Clarity Clear Urine pH 7.0 Ur Specific [place] 1.010 Urine Protein 15 H Urine Glucose (UA) Normal Urine Ketones Negative Urine Occult Blood Negative Urine Nitrite Negative Urine Bilirubin Negative Urine Urobilinogen Normal Ur Leukocyte Esterase 500 H Urine RBC 0 SEEN Urine WBC 0-5 SEEN Ur Squamous Epith Cells 0 SEEN Ur Transition Epith Cell 5-10 SEEN Urine Bacteria 0 SEEN Urine Mucus 0 SEEN Radiography Diagnostic Testing: Clinical Impression(s) from Imaging Studies Chest X-Ray 02/15/23 19:06 IMPRESSION: No radiographic evidence of acute cardiopulmonary disease. Electronically Signed: Ru Hernandez MD at 19:47 EDT Reading Location ID and State: [facility] / [place] Tel , Service support , Discharge Plan Triage Chief Complaint: Dizziness ED Midlevel Provider: Huma Lepe ED Provider: Thomas Alegre Dx/Rx/DC Orders Clinical Impression: Lightheadedness, Benign paroxysmal positional vertigo Instructions: Dizziness Fainting Causes, ED BPV Vertigo Prescriptions: New meclizine 25 mg tablet 25 mg PO TID PRN (Reason: dizziness) Qty: 30 0RF No Action omeprazole 20 mg capsule,delayed release(DR/EC) 20 mg PO DAILY simvastatin 20 mg tablet 20 mg PO QHS 90 Days Qty: 90 Patient Comments: TAKE 1 TABLET BY MOUTH EVERY DAY duloxetine 60 mg capsule,delayed release(DR/EC) 60 mg PO DAILY zinc gluconate 30 mg tablet 30 mg PO DAILY Lantus Solostar U-100 Insulin 100 unit/mL (3 mL) insulin pen 40 unit subcut QAM furosemide 40 mg tablet 40 mg PO BID Qty: 180 3RF topiramate 25 mg tablet 50 mg PO BID diphenhydramine HCl [Benadryl] 25 mg capsule 25 mg PO QHS PRN (Reason: Insomnia) potassium citrate 5 mEq (540 mg) tablet extended release 5 meq PO DAILY albuterol sulfate 90 mcg/actuation HFA aerosol inhaler 2 puff inhalation Q4H PRN (Reason: Sob &/Or Wheezing) cholecalciferol (vitamin D3) 1,000 UNIT tablet 5,000 unit PO DAILY (DME) POCKET CHAMBER Spacer See Rx Instructions .ROUTE .MEDSUPPLY Qty: 1 0RF Rx Instructions: As directed levothyroxine 100 mcg tablet 100 mcg PO DAILY Patient Comments: TAKE 1 TABLET BY MOUTH EVERY DAY ascorbic acid (vitamin C) 500 mg Tablet 500 mg PO DAILY lubiprostone 24 mcg capsule 24 mcg PO BIDCM Patient Comments: Take 1 capsule by mouth twice daily with meals. ondansetron 4 mg tablet,disintegrating 4 mg PO Q6H PRN (Reason: nausea and vomiting) Qty: 10 0RF acetaminophen 500 mg tablet 1,000 mg PO Q4H PRN (Reason: fever or pain) hydrocodone-acetaminophen [hydrocodone-acetaminophen] 5-325 mg tablet 1 tab PO Q6H PRN PRN (Reason: Pain) 3 Days Qty: 10 0RF Eliquis 5 mg tablet 5 mg PO BID Qty: 60 12RF spironolactone 50 mg tablet 25 mg PO DAILY Qty: 90 3RF Primary Care Provider: Gael Garza Referrals: Gael Garza DO [Primary Care Provider] - Disposition Disposition: Home, Self Care
[2023-02-15 19:55] LABS: Anion Gap 2 (5-15); BUN 21 mg/dL (7-18); BUN/Creat Ratio 25.9 RATIO (10-20); Calcium,Total 9.5 mg/dL (8.5-10.1); Chloride 109 mmol/L (98-107); Creatinine, Serum 0.81 mg/dL (0.55-1.02); EST Glomerular Filtration Rate 72 mL/min (>60); Est Glom Filt Rate - Afr Amer 87 mL/min (>60); Glucose 177 mg/dL (74-106); Potassium 4.1 mmol/L (3.5-5.1); Sodium Level 139 mmol/L (136-145)
[2023-02-15 20:04] VITALS: BP 116/53; BP 139/65; BP 150/75; PULSE 60; PULSE 65; PULSE 70
[2023-02-15] MEDS: 0.9% Normal Saline (1000mL) 1,000 ML 1000 ML IV (20:05)
[2023-02-15 20:07] LABS: Troponin-I HS 5 pg/mL (3.0-54.0)
[2023-02-15 20:29] LABS: Bacteria 0 SEEN /hpf (None Seen); Mucous, Urine 0 SEEN /hpf (<or=2+); Squamous Epithelial Cells - UA 0 SEEN /hpf (5-10)
[2023-02-15 20:37] LABS: Color, Urine Yellow (Yellow); Glucose, Dipstick Normal (Normal); Ketone-Dipstick Negative (Negative); Leukocyte Esterase-Dipstick 500 /ul (Negative); Nitrite-Dipstick Negative (Negative); Occult Blood-Urine Negative /ul (Negative); Protein-Dipstick 15 mg/dl (Negative); Urine Bilirubin Dipstick Negative (Negative); Urine Clarity Clear (Clear); Urine Urobilinogen Normal (Normal)
[2023-02-15 20:50] LABS: White Blood Cells 0-5 SEEN /hpf (0-5)
[2023-02-15 20:52] LABS: Red Blood Cells-Urine 0 SEEN /hpf (0-5); Transitional Epithelial - Ur 5-10 SEEN /hpf (0-5)
[2023-02-15 21:31] VITALS: RESP 16
[2023-02-15 21:47] LABS: Troponin-I HS 7 pg/mL (3.0-54.0)
[2023-02-15] MEDS: proMETHazine 25 MG/ML Syringe 12.5 MG IM (22:36)
[2023-02-15] MEDS: Meclizine HCl 25 MG Tablet PO (22:36)
[2023-02-15 23:32] VITALS: RESP 16
[2023-02-15 23:44] VITALS: BP 149/70; PULSE 59; RESP 15; O2SAT 97
== END 2023-02-15 23:44 | disposition home or self-care (01) ==
PROVIDERS: Physician Assistant; Emergency Provider Student in an Organized Health Care Education/Training Program; PCP Family Medicine; Visit Provider Student in an Organized Health Care Education/Training Program
DX: R42 Dizziness and giddiness (principal); J44.9 Chronic obstructive pulmonary disease, unspecified; I48.91 Unspecified atrial fibrillation; G40.909 Epilepsy, unspecified, not intractable, without status epilepticus; E11.9 Type 2 diabetes mellitus without complications; I10 Essential (primary) hypertension; E78.5 Hyperlipidemia, unspecified; Z79.01 Long term (current) use of anticoagulants; K21.9 Gastro-esophageal reflux disease without esophagitis; Z79.899 Other long term (current) drug therapy; F32.A Depression, unspecified; E03.9 Hypothyroidism, unspecified; K58.9 Irritable bowel syndrome, unspecified; Z90.49 Acquired absence of other specified parts of digestive tract; Z96.641 Presence of right artificial hip joint
CPT/HCPCS: 71045; 80048; 81001; 84484; 85025; 85610; 85730; 93005; 96361; 96372; 99283; J7030; J7050; A4216

== ENCOUNTER 2023-05-16 09:00 | Outpatient (RCR) | payer MEDICARE, SELFPAY ==
--- NOTE | 2023-04-18 08:35 | HP.PTEVAL ---
Patient's Visit Information Visit Information Visit Information: DUNG MEEK is a 78 year old F referred to Physical Therapy by Dr. Gael Garza DO with a diagnosis of Vertigo. Date of Evaluation: 04/18/23 Physical Therapist: MEG Sanchez Visit Plan Frequency: 2x /Week Duration: 2 Months Plan: 2X/ week for 8 weeks for progressive VOR, balance, and gait training HEP: Smooth pursuit horizontal and vertical and the seated head rotation with 45 degrees X 30 seconds (increases dizziness) Subjective Subjective: Pt running late for appt. She reports that she has been having a lot of dizzy spells for quite a while. She got up one morning and the dizziness lasted all day long and went to ER and got pills and they have not relieved it. Sometimes the whole room is spinning and she feels like she is going to pass out and other times she feels dizzy but the room is not spinning. She is not sleeping (she is only sleeping about 2 hours a night due to her CPAP and her watch). The last month she has slept a little over 3 hours a night. She does not know what brings on her dizziness. She gets DREW also and can be just sitting there and will get a DREW. She has PD and tremors in B hands, teeth chattering. She gets DREW couple times a week and can last 15-20 min or all day. She reports that her shoulders hurt a lot. She has fallen a lot. She fell last in August. If she goes and turns she can fall. She can not get up from off the floor. She uses a cane or a walker most of the time. They do not go up and down the steps at home. She drives when she feels good or has someone take her. Objective Objective: Gait: walks with short strides, decreased heel to toe gait pattern, head straight ahead with eyes to the floor Sit to stand: slow to get up and needs UE to be able to slowly get up from the chair FGA: 6 Spoke with pt and told her she needed to use an AD at all times due to her high risk of falling Standing with head rotations horizontal X 20 seconds increased dizziness and had to sit down (rated dizziness 6/10 and now 4/10 no Nausea and slight DREW) VOR: Sitting smooth pursuit horizontal X 20 seconds with increase dizziness (4/10) Sitting smooth pursuit vertical X 20 (hard to to stay focused...moves ahead of target and catches up) LE MMT: R hip flex 9.4 and L 8.1 R knee ext 11.4 and L 10 R knee flex 11.9 and L 11.4 Balance/Special Test Scores Functional Gait Assessment Score: 6 % Disability: 80.0000 Dizziness Score: 56 Goals Goal 1:: I HEP Goal Time Frame: 8-12 Weeks Goal 2:: Increase balance (score was 6 on FGA) Goal Time Frame: 8-12 Weeks Goal 3:: Be able to stand and turn head horizontal and vertical X 30 seconds without having dizziness Goal Time Frame: 8-12 Weeks Goal 4:: Be able to walk with increase stride length and increase heel to toe gait pattern Goal Time Frame: 8-12 Weeks Rehabilitation Potential Rehabilitation Potential: Good Anticipated Interventions Patient/Client Instruction: Educate patient on: Condition and Plan of Care For the Purpose of:: To improve muscle performance and motor function, To improve ability to perform ADL's, To increase tolerance to activity/condition/position, To improve performance and independence with ADL's, To decrease level of supervision to perform tasks, To improve ability of physical actions for home/community/work/leisure, To improve gait and locomotor functions, To improve balance and To improve safety with gait Therapeutic Exercise to Include: Strength training, Endurance training, Balance training and Gait and locomotor training For the Purpose of:: To improve muscle performance and motor function, To improve ability to perform ADL's, To increase tolerance to activity/condition/position, To improve performance and independence with ADL's, To decrease level of supervision to perform tasks, To improve ability of physical actions for home/community/work/leisure, To improve gait and locomotor functions, To improve endurance, To improve balance and To improve safety with gait Functional Training to Include: Gait training For the Purpose of:: To improve gait and locomotor functions and To improve safety with gait Text: Thank you for the opportunity to evaluate your patient. For Medicare and Medicare HMO plans, please review the plan of care and approve it. It will need to be FAXED BACK to us at [phone] for Medicare purposes. For Medicare only, by signing this I certify the plan of care. Please let me know if there are questions or concerns regarding this plan of care. Physician Signature: Date:
--- NOTE | 2023-05-16 09:26 | HP.PTDCSUM ---
Discharge Summary D/C summary: It has been my pleasure to treat DUNG MEEK referred by Dr. Gael Garza DO, with the diagnosis of Vertigo for a total of 6 visit(s). Discharge Date: 05/16/23 Please see the following information for a summary of their discharge status. Subjective Subjective: Pt reports that she is taking bigger steps. She reports that her dizziness is better unless she moves too fast and then she has to stop. Pt is running late Pain DREW: Pain Intensity (Out of 10): 0 Overall Improvement % Improvement: 75 Objective Objective/Function: Standing horizontal head turns X 30 seconds FGA: 8 Still gets dizzy with walking and turning her head Goals Goal 1:: I HEP Goal Progress: Goal Met Goal 2:: Increase balance (score was 6 on FGA) Goal Progress: Goal Met Goal 3:: Be able to stand and turn head horizontal and vertical X 30 seconds without having dizziness Goal Progress: Goal Met Goal 4:: Be able to walk with increase stride length and increase heel to toe gait pattern Goal Progress: Progressing Plan Plan: Send Pt home with standing (against counter and chair in front) vertical and horizontal head turns X 30 seconds and see if she can continue to increase her time and less her dizziness. Her is having surgery and she can not come in for awhile D/C Information Discharge Comments: DC PT to HEP d/c sentence: If there are questions or concerns regarding this patient's physical therapy, please feel free to call me at [phone]. Thank you for the referral of this patient. Sincerely, Ally Leggett, MPT Balance/Gait/Functional tests Balance/Special Test Scores Functional Gait Assessment Score: 8 % Disability: 73.3400 Dizziness Score: 22 Improvement % Improvement: 75
== END 2023-05-16 19:00 | disposition home or self-care (01) ==
LOC: PT 09:00
PROVIDERS: PCP Family Medicine; Referring Provider Family Medicine; Visit Provider Family Medicine
DX: R42 Dizziness and giddiness (principal)
CPT/HCPCS: 97110; 97162; 97530

== ENCOUNTER → 2023-06-13 | Outpatient (CLI) | payer MEDICARE, SELFPAY ==
[2023-06-13 15:28] LABS: Absolute Lymphocyte Count 1.57 X10^3/uL (0.83-4.51); Absolute Neutrophil Count 5.2 X10^3/uL (2.0-7.7); Basophil# 0.09 X10^3/uL; Basophil% 1.2 % (0-1); Eosinophils% 2.6 % (0-5); Hematocrit 39.2 % (37-47); Hemoglobin 12.2 g/dL (12.0-15.0); Lymphocyte # 1.57 X10^3/ul (0.83-4.51); Lymphocyte % 20.7 % (19-41); Mean Corp Hgb Conc 31.1 g/dL (32-36); Mean Corpuscular Hgb 29.6 pg (27.0-32.0); Mean Corpuscular Volume 95.1 fL (81-99); Mean Platelet Vol. 10.9 fl (6.2-12.0); Monocyte# 0.55 X10^3/uL; Monocyte% 7.2 % (0-10); NRBC Flagged by Analyzer 0 % (0-5); Neutrophil # 5.15 X10^3/uL (2.7-7.7); Neutrophil % 67.9 % (47-70); Platelet Count 301 K/mm3 (150-450); RBC Distribution Width SD 45.6 fl (35.1-43.9); Red Blood Count 4.12 M/mm3 (4.2-5.4); White Blood Count 7.6 K/mm3 (4.4-11.0)
[2023-06-13 15:30] LABS: Color, Urine Straw (Yellow); Glucose, Dipstick Normal (Normal); Ketone-Dipstick Negative (Negative); Leukocyte Esterase-Dipstick Negative /ul (Negative); Nitrite-Dipstick Negative (Negative); Occult Blood-Urine Negative /ul (Negative); Protein-Dipstick Negative (Negative); Urine Bilirubin Dipstick Negative (Negative); Urine Clarity Clear (Clear); Urine Urobilinogen Normal (Normal)
[2023-06-13 15:57] LABS: BNP,B-Type NATRIURETIC PEPTIDE 22.1 pg/mL (0-100)
[2023-06-13 16:06] LABS: ALB/GLOB Ratio 0.9 RATIO (0.9-2.4); AST(SGOT) 22 U/L (15-37); Alanine Aminotransfer ALT/SGPT 22 U/L (13-56); Albumin, Serum 3.5 g/dL (3.2-5.0); Alkaline Phosphatase 145 U/L (45-117); Anion Gap 7 (5-15); BUN 24 mg/dL (7-18); BUN/Creat Ratio 27.5 RATIO (10-20); Calcium,Total 9.1 mg/dL (8.5-10.1); Chloride 104 mmol/L (98-107); Creatinine, Serum 0.87 mg/dL (0.55-1.02); EST Glomerular Filtration Rate 66 mL/min (>60); Est Glom Filt Rate - Afr Amer 80 mL/min (>60); Globulin 3.7 g/dL (2.2-4.2); Glucose 196 mg/dL (74-106); Potassium 3.4 mmol/L (3.5-5.1); Protein, Total 7.2 g/dL (6.4-8.2); Sodium Level 140 mmol/L (136-145)
== END | disposition home or self-care (01) ==
LOC: BFHLAB 11:58
PROVIDERS: PCP Family Medicine; Visit Provider Family Medicine
DX: R42 Dizziness and giddiness (principal); I50.30 Unspecified diastolic (congestive) heart failure; R35.0 Frequency of micturition
CPT/HCPCS: 36415; 80053; 81002; 83880; 85025; 87086

== ENCOUNTER 2023-07-04 14:58 | Observation (INO) | payer MEDICARE, SELFPAY ==
[2023-07-04] VITALS (18 sets, daily range): BP systolic 101–127; BP diastolic 49–75; PULSE 55–76; RESP 12–19; TEMP 36.3–36.6; O2SAT 99–100; BMI 31.5; BMI 30.7
--- NOTE | 2023-07-04 15:37 | CT_ITS ---
STUDY: CT CERVICAL SPINE WITHOUT CONTRAST REASON FOR EXAM: Female, 78 years old. fall RADIATION DOSAGE (If Supplied By Facility): CTDIvol = ( 17.67 ) mGy, DLP = ( 313.98 ) mGycm TECHNIQUE: High resolution transaxial imaging was performed without contrast material. Sagittal and coronal images were reconstructed. Individualized dose optimization techniques were used for this CT. COMPARISON: None FINDINGS: Normal craniovertebral junction. Normal anterior atlantoaxial articulation. Normal odontoid process. Normal cervical lordosis. Normal vertebral bodies and posterior osseous elements. C2-3: Normal endplates. Normal disc height and morphology. Normal central canal and mild right neural foraminal stenosis secondary to bony hypertrophy C3-4: Normal endplates. Normal disc height and morphology. Normal central canal and mild left neural foraminal stenosis secondary to bony hypertrophy. C4-5: Normal endplates. Normal disc height and morphology. Normal central canal and intervertebral neuroforamina. C5-6: Mild disc space narrowing. Normal central canal and intervertebral neuroforamina. C6-7: Normal endplates. Normal disc height and morphology. Normal central canal and intervertebral neuroforamina. C7-T1: Normal endplates. Normal disc height and morphology. Normal central canal and intervertebral neuroforamina. Normal visualized soft tissue structures. CT/Spine Cervical without Contras IMPRESSION: Mild spondylosis. No acute fracture or other significant abnormality. Electronically Signed: Yang Lopez MD at 16:46 EDT ,
--- NOTE | 2023-07-04 15:37 | EKG12_ITS ---
Test Reason : FALL Blood Pressure : / mmHG Vent. Rate : 060 BPM Atrial Rate : 060 BPM P-R Int : 226 ms QRS Dur : 094 ms QT Int : 436 ms P-R-T Axes : 020 008 063 degrees QTc Int : 436 ms Sinus rhythm with 1st degree A-V block Otherwise normal ECG Confirmed by Yusuf Madrigal ([id number]), editor at large HILDA EVERETT ([id number]) on 07/06/2023 11:02:47 AM Referred By: Confirmed By:Yusuf Madrigal
--- NOTE | 2023-07-04 15:37 | CT_ITS ---
STUDY: CT BRAIN WITHOUT CONTRAST REASON FOR EXAM: Female, 78 years old. fall, anticoagulation RADIATION DOSAGE (If Supplied By Facility): CTDIvol = ( 47.06 ) mGy, DLP = ( 907.97 ) mGycm TECHNIQUE: Transaxial CT imaging of the brain was performed without administration of intravenous contrast material. Individualized dose optimization techniques were used for this CT. COMPARISON: No relevant priors. FINDINGS: Normal soft tissue structures. Normal calvarium. Normal size ventricles and extra-axial spaces for the patient''s age. Mild periventricular white matter ischemic changes.. Normal basal ganglia and thalami. Normal brainstem. Normal cerebellum. T-cell deformity of uncertain significance. There is no intracranial hemorrhage. There are no findings of an acute ischemic infarction. Normal visualized paranasal sinuses. Postsurgical changes of the orbits CT/Brain/Head without Contrast IMPRESSION: Mild periventricular white matter ischemic change. No acute intracranial hemorrhage Electronically Signed: Yang Lopez MD at 16:35 EDT ,
--- NOTE | 2023-07-04 15:50 | EX.ED.DYSGE1 ---
HPI History of Present Illness Chief Complaint: Dizziness Informant: patient Narrative Narrative: Patient presents secondary to fall and dizziness. She states she has had dizziness for quite some time and has had workup previously. She states oftentimes it is more of a lightheadedness than a vertigo. Patient states she stood from her chair yesterday afternoon and got dizzy and fell onto her right side. She is complaining of pain to her head, neck, right shoulder, right hip, and right leg. She has been able to ambulate. Patient is currently on Eliquis secondary to history of DVT and PE. [facility] Medical History Asthma COPD (chronic obstructive pulmonary disease) Depression Diabetes mellitus type II, controlled Edema Esophageal spasm Essential hypertension GERD (gastroesophageal reflux disease) Hiatal hernia History of basal cell carcinoma (BCC) History of DVT (deep vein thrombosis) History of pulmonary embolism Hyperlipidemia Hypothyroidism IBS (irritable bowel syndrome) Kidney disease Left-sided chest wall pain Lumbar back pain Lung disease Obesity (BMI 30.0-34.9) JHONY (obstructive sleep apnea) Osteoarthritis Parkinsons disease Premature atrial contractions Seizure disorder Sleep apnea Symptomatic bradycardia Venous insufficiency Home Medications omeprazole 20 mg capsule,delayed release 20 mg PO DAILY ACID REFLUX 06/19/17 [History Last Taken 08/31/21] cholecalciferol (vitamin D3) 25 mcg (1,000 unit) tablet 5,000 unit PO DAILY SUPPLEMENT 07/28/17 [History Last Taken 08/30/21] simvastatin 20 mg tablet 20 mg PO QHS 90 days #90 tabs 09/01/17 [History Last Taken 08/30/21] albuterol sulfate 90 mcg/actuation aerosol inhaler 2 puff inhalation Q4H PRN Sob &/Or Wheezing 12/04/20 [History Last Taken Unknown] duloxetine 60 mg capsule,delayed release 60 mg PO DAILY 12/04/20 [History Last Taken 08/30/21] zinc gluconate 30 mg tablet 30 mg PO DAILY 12/04/20 [History Last Taken 08/30/21] furosemide 40 mg tablet 40 mg PO BID #180 tabs 01/18/21 [Rx Last Taken 08/31/21] inhalational spacing device (POCKET CHAMBER spacer) #1 ea 01/23/21 [Rx Last Taken Unknown] diphenhydramine HCl 25 mg capsule (Benadryl) 25 mg PO QHS PRN Insomnia 06/02/21 [History Last Taken 08/30/21] insulin glargine 100 unit/mL (3 mL) subcutaneous pen (Lantus Solostar U-100 Insulin) 40 unit subcut QAM 06/02/21 [History Last Taken 08/31/21] topiramate 25 mg tablet 50 mg PO BID 06/02/21 [History Last Taken 08/31/21] ascorbic acid (vitamin C) 500 mg tablet 500 mg PO DAILY SUPPLEMENT 08/31/21 [History Last Taken 08/30/21] levothyroxine 100 mcg tablet 100 mcg PO DAILY THYROID 08/31/21 [History Last Taken 08/31/21] lubiprostone 24 mcg capsule 24 mcg PO BIDCM 08/31/21 [History Last Taken 08/31/21] ondansetron 4 mg disintegrating tablet 4 mg PO Q6H PRN nausea and vomiting #10 tabs 03/22/22 [Rx Last Taken Unknown] acetaminophen 500 mg tablet 1,000 mg PO Q4H PRN fever or pain 04/12/22 [History Last Taken Unknown] potassium citrate 5 mEq (540 mg) tablet,extended release 5 meq PO DAILY 05/18/22 [History Last Taken Unknown] apixaban 5 mg tablet (Eliquis) 5 mg PO BID #60 tabs 07/21/22 [Rx Last Taken Unknown] hydrocodone-acetaminophen 5-325mg 5mg-325mg 1 tab PO Q6H PRN PRN Pain 3 days #10 TABLETS 09/13/22 [Rx Last Taken Unknown] spironolactone 50 mg tablet 25 mg (1/2 x 50 mg) PO DAILY #90 tabs 01/09/23 [Rx Last Taken Unknown] meclizine 25 mg tablet 25 mg PO TID PRN dizziness #30 tabs 02/15/23 [Rx Last Taken Unknown] Allergy/AdvReac Type Severity Reaction Status Date / Time nitrofurantoin Allergy Hives Verified 07/04/23 15:01 macrocrystalline [From Macrodantin] tree and shrub pollen Allergy Hives Verified 07/04/23 15:01 rosuvastatin [From Crestor] AdvReac Severe Muscle Verified 07/04/23 15:01 weakness colesevelam [From WelChol] AdvReac Intermediate nausea Verified 07/04/23 15:01 nitrofurantoin AdvReac Intermediate Hives Verified 07/04/23 15:01 [From Furadantin] metformin AdvReac Unknown Gi side Verified 07/04/23 15:01 effects Family History Father CAD (coronary artery disease) Diabetes Myocardial infarction Alzheimers disease Hypertension Parkinson's disease Cancer melanoma History of blood clots Mother Diabetes AAA (abdominal aortic aneurysm) Bleeding disorder Colon cancer Thyroid disorder Brother Multiple sclerosis Skin cancer Surgical History History of cholecystectomy History of lumbar fusion (~2012) History of Belkys fundoplication History of right hip replacement (~07/08/15) History of tonsillectomy and adenoidectomy Hx of hernia repair Hx of lumbar discectomy Social History household members: none Smoking Status: Never smoker alcohol intake: never substance use type: does not use diet: diabetic and gluten free caffeine: No what type of physical activity do you participate in: none seatbelt use: always do you feel safe at home: Yes ROS ROS ED Constitutional Constitutional ED: Denies chills or fever(s) Eyes Eyes: Denies discharge from eye(s) ENT ENT ED: Denies discharge from eye(s), rhinorrhea or sore throat Cardiovascular Cardiovascular: Denies chest pain or palpitations Respiratory/Chest Respiratory/Chest: Denies cough or dyspnea Gastrointestinal Gastrointestinal: Denies abdominal pain, nausea or vomiting Genitourinary Genitourinary ED: Denies dysuria Musculoskeletal Musculoskeletal: Reports extremity pain and neck pain; Denies back pain Integumentary Denies Abrasions or rash Neurologic Neurologic: Reports headache(s); Denies weakness Psychiatric Psychiatric: Denies anxiety or depression Allergic/Immunologic Allergic/Immunologic ED: Denies lip swelling or urticaria EXAM Physical Exam Const Vital Signs: 07/04/23 14:58 07/04/23 16:33 07/04/23 16:45 Temperature 97.4 F L Temperature Source Temporal Pulse Rate 66 56 L Respiratory Rate 18 17 Blood Pressure 106/57 L 127/58 H 121/57 H Blood Pressure Mean 73 79 78 Pulse Ox 100 Oxygen Delivery Method Room Air 07/04/23 16:50 Temperature Temperature Source Pulse Rate 58 L Respiratory Rate 18 Blood Pressure Blood Pressure Mean Pulse Ox Oxygen Delivery Method Positive well nourished and well developed General Appearance ED: well developed HEENT Reports moist mucous membranes Eyes EOMs intact bilaterally Chest Wall inspection of chest normal and palpation of chest normal Resp normal respiratory effort and clear to auscultation bilaterally Cardio regular rate and regular rhythm GI non-tender Palpation: soft Extremity normal to inspection Extremity Narrative: Moves all extremities with good strength and sensation. Neuro oriented x3 and no sensory deficits noted Motor Exam: strength 5/5 throughout Psych mental status grossly normal Skin no rashes or lesions noted MDM MDM MDM Narrative Medical decision making narrative: Patient placed on metal flow coordinator. EKG obtained to evaluate for cardiac arrhythmia/ischemia. Labwork obtained to evaluate for leukocytosis, anemia, and electrolyte derangement. Urinalysis obtained to evaluate for infection/hematuria. CT scan of the head and C-spine obtained given her fall and being on anticoagulant. X-rays of the right shoulder, pelvis/right hip obtained to evaluate for potential fracture versus contusion. History & Record Review Discussion w/independent historian: Patient Additional record(s) reviewed:: Prior ED visit and Prior labs Lab Data Attestation: I reviewed the patient's lab results. Labs: Laboratory Results - last 24 hr 07/04/23 07/04/23 16:07 17:00 WBC 10.9 RBC 4.40 Hgb 13.0 Hct 39.6 MCV 90.0 MCH 29.5 MCHC 32.8 RDW Std Deviation 41.1 RDW Coeff of Basilio 12.5 Plt Count 367 MPV 10.0 Immature Gran % (Auto) 0.300 Neut % (Auto) 76.7 H Lymph % (Auto) 12.8 L [place] % (Auto) 8.3 Eos % (Auto) 1.3 Baso % (Auto) 0.6 Absolute Neuts (auto) 8.4 H Absolute Lymphs (auto) 1.40 Nucleated RBC % 0 Sodium 132 L Potassium 2.7 L* Chloride 87 L Carbon Dioxide 36.0 H Anion Gap 9 BUN 58 H Creatinine 1.40 H Estim Creat Clear Calc 33.46 Est GFR (MDRD) Af Amer 47 L Est GFR (MDRD) Non-Af 38 L BUN/Creatinine Ratio 41.4 H Glucose 150 H Calcium 9.6 Urine Color Yellow Urine Clarity Clear Urine pH 6.0 Ur Specific [place] 1.010 Urine Protein Negative Urine Glucose (UA) Normal Urine Ketones Negative Urine Occult Blood Negative Urine Nitrite Negative Urine Bilirubin Negative Urine Urobilinogen Normal Ur Leukocyte Esterase 25 H Urine RBC 0 SEEN Urine WBC 0-5 SEEN Ur Squamous Epith Cells 0-5 SEEN Urine Bacteria RARE Hyaline Casts 0-5 SEEN Urine Mucus 0 SEEN Radiography Diagnostic Testing: Clinical Impression(s) from Imaging Studies Brain CT 07/04/23 15:37 IMPRESSION: Mild periventricular white matter ischemic change. No acute intracranial hemorrhage Electronically Signed: Yang Lopez MD at 16:35 EDT , Cervical Spine CT 07/04/23 15:37 IMPRESSION: Mild spondylosis. No acute fracture or other significant abnormality. Electronically Signed: Yang Lopez MD at 16:46 EDT , Hip/Pelvis X-Ray 07/04/23 16:15 IMPRESSION: Stable appearance to bilateral hip prostheses.. No evidence for acute hip or pelvic fracture Electronically Signed: Yang Lopez MD at 16:49 EDT , Shoulder X-Ray 07/04/23 16:15 IMPRESSION: Degenerative changes. No acute fracture or dislocation Electronically Signed: Yang Lopez MD at 16:47 EDT , EKG Initial EKG: Attestation: I personally reviewed and interpreted this EKG as follows: Interpretation: Sinus Rhythm (Sinus rhythm at 60 bpm with a first-degree AV block. No evidence of acute ischemia.) Treatment and Re-Evaluation :: CBC was a white count of 10.9 with a hemoglobin of 13.0. 76% neutrophils noted. Chemistry studies significant for potassium of 2.7 with a BUN of 58 and a creatinine of 1.4. Her prior creatinine from 3 weeks ago was 0.87. [address] scan of the head reveals chronic changes with no evidence of hemorrhage. CT the C-spine reveals no fracture. Pelvis and right hip x-rays per my interpretation reveal no evidence of acute fracture or dislocation. Radiology interpretation reviewed and agrees. Right shoulder x-ray per my interpretation reveals no evidence of fracture or dislocation. Radiology interpretation reviewed and agrees. Patient has been given IV fluids for hydration. She has been given an initial dose of oral potassium replacement. Given her weakness and fall with her PRIYA and hypokalemia I do feel she should be observed overnight for hydration and potassium replacement. I will speak with the hospitalist. Discharge Plan Triage Chief Complaint: Dizziness ED Provider: Shara Ness Dx/Rx/DC Orders Clinical Impression: PRIYA (acute kidney injury), Fall, Hypokalemia Prescriptions: No Action omeprazole 20 mg capsule,delayed release(DR/EC) 20 mg PO DAILY simvastatin 20 mg tablet 20 mg PO QHS 90 Days Qty: 90 Patient Comments: TAKE 1 TABLET BY MOUTH EVERY DAY duloxetine 60 mg capsule,delayed release(DR/EC) 60 mg PO DAILY zinc gluconate 30 mg tablet 30 mg PO DAILY Lantus Solostar U-100 Insulin 100 unit/mL (3 mL) insulin pen 40 unit subcut QAM furosemide 40 mg tablet 40 mg PO BID Qty: 180 3RF topiramate 25 mg tablet 50 mg PO BID diphenhydramine HCl [Benadryl] 25 mg capsule 25 mg PO QHS PRN (Reason: Insomnia) potassium citrate 5 mEq (540 mg) tablet extended release 5 meq PO DAILY albuterol sulfate 90 mcg/actuation HFA aerosol inhaler 2 puff inhalation Q4H PRN (Reason: Sob &/Or Wheezing) cholecalciferol (vitamin D3) 1,000 UNIT tablet 5,000 unit PO DAILY (DME) POCKET CHAMBER Spacer See Rx Instructions .ROUTE .MEDSUPPLY Qty: 1 0RF Rx Instructions: As directed levothyroxine 100 mcg tablet 100 mcg PO DAILY Patient Comments: TAKE 1 TABLET BY MOUTH EVERY DAY ascorbic acid (vitamin C) 500 mg Tablet 500 mg PO DAILY lubiprostone 24 mcg capsule 24 mcg PO BIDCM Patient Comments: Take 1 capsule by mouth twice daily with meals. ondansetron 4 mg tablet,disintegrating 4 mg PO Q6H PRN (Reason: nausea and vomiting) Qty: 10 0RF acetaminophen 500 mg tablet 1,000 mg PO Q4H PRN (Reason: fever or pain) hydrocodone-acetaminophen [hydrocodone-acetaminophen] 5-325 mg tablet 1 tab PO Q6H PRN PRN (Reason: Pain) 3 Days Qty: 10 0RF meclizine 25 mg tablet 25 mg PO TID PRN (Reason: dizziness) Qty: 30 0RF Eliquis 5 mg tablet 5 mg PO BID Qty: 60 12RF spironolactone 50 mg tablet 25 mg PO DAILY Qty: 90 3RF Primary Care Provider: Gael Garza Referrals: Gael Garza DO [Primary Care Provider] - Disposition Disposition: Acute Care Hospital [facility]
[2023-07-04] MEDS: 0.9% Normal Saline (500mL Bag) 500 ML 1000 ML IV (16:04)
--- NOTE | 2023-07-04 16:15 | RAD_ITS ---
STUDY: X-RAY - RIGHT SHOULDER REASON FOR EXAM: Female, 78 years old. injury TECHNIQUE: 3 view(s) of the shoulder. COMPARISON: None. FINDINGS: Narrowed glenohumeral articulation. Narrowed acromioclavicular joint. Normal acromion. Normal humeral head and visualized proximal humerus. The soft tissue structures are unremarkable. Normal visualized pulmonary apex. RAD/Shoulder min 2 Views IMPRESSION: Degenerative changes. No acute fracture or dislocation Electronically Signed: Yang Lopez MD at 16:47 EDT ,
--- NOTE | 2023-07-04 16:15 | RAD_ITS ---
STUDY: X-RAY - PELVIS AND RIGHT HIP REASON FOR EXAM: Female, 78 years old. injury TECHNIQUE: 3 views of the pelvis and hip. COMPARISON: None. FINDINGS: There is a non-specific bowel gas pattern. Normal visualized soft tissue structures. Normal bilateral iliac wings, sacroiliac joints and visualized sacrum. Normal bilateral superior and inferior pubic rami. Normal pubic symphysis. Normal bilateral ischial tuberosities. Stable appearance to bilateral hip prostheses. No evidence for acute fracture or dislocation. RAD/HIP, UNI W/ Pelvis 2-3 Views IMPRESSION: Stable appearance to bilateral hip prostheses.. No evidence for acute hip or pelvic fracture Electronically Signed: Yang Lopez MD at 16:49 EDT ,
[2023-07-04 16:16] LABS: Absolute Neutrophil Count 8.4 X10^3/uL (2.0-7.7); Basophil# 0.07 X10^3/uL; Basophil% 0.6 % (0-1); Eosinophil# 0.14 X10^3/uL; Eosinophils% 1.3 % (0-5); Hematocrit 39.6 % (37-47); Lymphocyte % 12.8 % (19-41); Mean Corp Hgb Conc 32.8 g/dL (32-36); Mean Corpuscular Hgb 29.5 pg (27.0-32.0); Monocyte# 0.91 X10^3/uL; Monocyte% 8.3 % (0-10); NRBC Flagged by Analyzer 0 % (0-5); Neutrophil # 8.36 X10^3/uL (2.7-7.7); Neutrophil % 76.7 % (47-70); Platelet Count 367 K/mm3 (150-450); RBC Distribution Width CV 12.5 % (11.6-14.6); RBC Distribution Width SD 41.1 fl (35.1-43.9); White Blood Count 10.9 K/mm3 (4.4-11.0)
[2023-07-04 16:34] LABS: Anion Gap 9 (5-15); BUN 58 mg/dL (7-18); BUN/Creat Ratio 41.4 RATIO (10-20); Calcium,Total 9.6 mg/dL (8.5-10.1); Chloride 87 mmol/L (98-107); EST Glomerular Filtration Rate 38 mL/min (>60); Est Glom Filt Rate - Afr Amer 47 mL/min (>60); Estimated Creatinine Clearance 33.46 ml/min; Glucose 150 mg/dL (74-106); Potassium 2.7 mmol/L (3.5-5.1); Sodium Level 132 mmol/L (136-145)
[2023-07-04] MEDS: Potassium Chloride Oral Tablet 20 MEQ 40 MEQ PO (16:46)
[2023-07-04 17:11] LABS: Mucous, Urine 0 SEEN /hpf (<or=2+); Red Blood Cells-Urine 0 SEEN /hpf (0-5)
[2023-07-04 17:23] LABS: Color, Urine Yellow (Yellow); Glucose, Dipstick Normal (Normal); Ketone-Dipstick Negative (Negative); Leukocyte Esterase-Dipstick 25 /ul (Negative); Nitrite-Dipstick Negative (Negative); Occult Blood-Urine Negative /ul (Negative); Protein-Dipstick Negative (Negative); Urine Bilirubin Dipstick Negative (Negative); Urine Clarity Clear (Clear); Urine Urobilinogen Normal (Normal)
[2023-07-04 17:39] LABS: White Blood Cells 0-5 SEEN /hpf (0-5)
[2023-07-04 17:40] LABS: Bacteria RARE /hpf (None Seen); Hyaline Cast 0-5 SEEN /lpf (0-5); Squamous Epithelial Cells - UA 0-5 SEEN /hpf (5-10)
--- NOTE | 2023-07-04 18:30 | HP.PCM.HOS_ITS ---
HPI - General General Date of Admission: 07/04/23 Date of Service: 07/04/23 Chief Complaint: Dizziness with a fall at home HPI Narrative DUNG MEEK, is a 78 F who presented to [facility] ED on 07/04/2023 with worsening dizziness with a fall at home. Patient seen at bedside in the ED, son present. Patient was mildly fatigued appearing but otherwise sitting up comfortably in bed, conversing normally and in no acute distress. Patient states that her PCP started her on spironolactone about 1 week ago for worsening lower extremity swelling. She was already on Lasix 40 mg twice daily for her history of diastolic dysfunction and lower extremity edema. States that her edema has significantly improved but she has had worsening episodes of dizziness particularly with standing up and walking around. She had a fall to day when she stood up from her chair this afternoon, got dizzy and fell onto her right side. She reported pain to the right side of her head and neck, right shoulder, right hip and right leg. She notably is on Eliquis for history of DVT/PE. She does feel like her mouth has been fairly dry over the past few days but she has been eating and drinking fairly well. She denies any chest pain, shortness of breath, fevers or chills, abdominal pain or discomfort. Denies any other recent medication changes. No other acute concerns this time. [facility] Medical History Asthma COPD (chronic obstructive pulmonary disease) Depression Diabetes mellitus type II, controlled Edema Esophageal spasm Essential hypertension GERD (gastroesophageal reflux disease) Hiatal hernia History of basal cell carcinoma (BCC) History of DVT (deep vein thrombosis) History of pulmonary embolism Hyperlipidemia Hypothyroidism IBS (irritable bowel syndrome) Kidney disease Left-sided chest wall pain Lumbar back pain Lung disease Obesity (BMI 30.0-34.9) JHONY (obstructive sleep apnea) Osteoarthritis Parkinsons disease Premature atrial contractions Seizure disorder Sleep apnea Symptomatic bradycardia Venous insufficiency Home Medications omeprazole 20 mg capsule,delayed release 20 mg PO DAILY ACID REFLUX 06/19/17 [History Last Taken 07/04/23] simvastatin 20 mg tablet 20 mg PO QHS 90 days #90 tabs 09/01/17 [History Last Taken 07/03/23] albuterol sulfate 90 mcg/actuation aerosol inhaler 2 puff inhalation Q4H PRN Sob &/Or Wheezing 12/04/20 [History Last Taken Unknown] duloxetine 60 mg capsule,delayed release 60 mg PO DAILY 12/04/20 [History Last Taken 07/04/23] furosemide 40 mg tablet 40 mg PO BID #180 tabs 01/18/21 [Rx Last Taken 07/04/23] inhalational spacing device (POCKET CHAMBER spacer) #1 ea 01/23/21 [Rx Last Taken Unknown] diphenhydramine HCl 25 mg capsule (Benadryl) 25 mg PO QHS PRN Insomnia 06/02/21 [History Last Taken 07/03/23] insulin glargine 100 unit/mL (3 mL) subcutaneous pen (Lantus Solostar U-100 Insulin) 40 unit subcut QAM 06/02/21 [History Last Taken 07/04/23] topiramate 25 mg tablet 25 mg PO BID 06/02/21 [History Last Taken 07/04/23] ascorbic acid (vitamin C) 500 mg tablet 500 mg PO DAILY SUPPLEMENT 08/31/21 [History Last Taken 07/04/23] levothyroxine 100 mcg tablet 100 mcg PO DAILY THYROID 08/31/21 [History Last Taken 07/04/23] lubiprostone 24 mcg capsule 24 mcg PO BIDCM 08/31/21 [History Last Taken 07/04/23] acetaminophen 500 mg tablet 1,000 mg PO Q4H PRN fever or pain 04/12/22 [History Last Taken 07/04/23] potassium citrate 5 mEq (540 mg) tablet,extended release 5 meq PO DAILY 05/18/22 [History Last Taken 07/04/23] apixaban 5 mg tablet (Eliquis) 5 mg PO BID #60 tabs 07/21/22 [Rx Last Taken 07/04/23] spironolactone 50 mg tablet 25 mg (1/2 x 50 mg) PO DAILY #90 tabs 01/09/23 [Rx Last Taken 07/04/23] cholecalciferol (vitamin D3) 125 mcg (5,000 unit) tablet (Vitamin D3) 125 mcg PO DAILY 07/04/23 [History Last Taken 07/04/23] doxepin 10 mg capsule 10 mg PO DAILY parkinsons 07/04/23 [History Last Taken 07/03/23] hydrocodone-acetaminophen 5-325mg 5mg-325mg 1 tab PO Q6H PRN Pain 07/04/23 [History Last Taken Unknown] meclizine 25 mg tablet 12.5 - 25 mg PO PRN PRN dizziness 07/04/23 [History Last Taken Unknown] pramipexole 0.75 mg tablet 0.75 mg PO BID 07/04/23 [History Last Taken 07/04/23] triamcinolone acetonide 0.5 % topical cream 1 applic topical BID PRN skin irritation 07/04/23 [History Last Taken 07/04/23] Allergy/AdvReac Type Severity Reaction Status Date / Time nitrofurantoin Allergy Hives Verified 07/04/23 15:01 macrocrystalline [From Macrodantin] tree and shrub pollen Allergy Hives Verified 07/04/23 15:01 rosuvastatin [From Crestor] AdvReac Severe Muscle Verified 07/04/23 15:01 weakness colesevelam [From WelChol] AdvReac Intermediate nausea Verified 07/04/23 15:01 nitrofurantoin AdvReac Intermediate Hives Verified 07/04/23 15:01 [From Furadantin] metformin AdvReac Unknown Gi side Verified 07/04/23 15:01 effects Family History Father CAD (coronary artery disease) Diabetes Myocardial infarction Alzheimers disease Hypertension Parkinson's disease Cancer melanoma History of blood clots Mother Diabetes AAA (abdominal aortic aneurysm) Bleeding disorder Colon cancer Thyroid disorder Brother Multiple sclerosis Skin cancer Surgical History History of cholecystectomy History of lumbar fusion (~2012) History of Belkys fundoplication History of right hip replacement (~07/08/15) History of tonsillectomy and adenoidectomy Hx of hernia repair Hx of lumbar discectomy Social History (Updated 07/04/23 @ 20:02 by Xiao Wright) household members: spouse and none Smoking Status: Never smoker alcohol intake: never substance use type: does not use diet: diabetic and gluten free caffeine: No what type of physical activity do you participate in: none seatbelt use: always do you feel safe at home: Yes ROS Constitutional Constitutional: Reports fatigue; Denies chills, fever(s) or weakness Eyes Eyes: Denies change in vision Cardiovascular Cardiovascular: Reports edema and lightheadedness; Denies chest pain, dyspnea on exertion, orthopnea, palpitations, rapid heart rate or syncope Respiratory/Chest Respiratory/Chest: Denies cough, shortness of breath at rest or wheezing Gastrointestinal Gastrointestinal: Denies abdominal pain, constipation, diarrhea, nausea or vomiting Genitourinary Genitourinary: Denies dysuria Musculoskeletal Musculoskeletal: Reports joint pain and neck pain; Denies arthralgias, back pain or myalgias Neurologic Neurologic: Reports dizziness; Denies confusion, focal weakness, headache(s), numbness, paresthesias, syncope or tingling Vital Signs Vital Signs Vital Signs: 07/04/23 14:58 07/04/23 16:33 07/04/23 16:45 Temperature 97.4 F L Temperature Source Temporal Pulse Rate 66 56 L Respiratory Rate 18 17 Blood Pressure 106/57 L 127/58 H 121/57 H Blood Pressure Mean 73 79 78 Pulse Ox 100 Oxygen Delivery Method Room Air 07/04/23 16:50 Temperature Temperature Source Pulse Rate 58 L Respiratory Rate 18 Blood Pressure Blood Pressure Mean Pulse Ox Oxygen Delivery Method Weight Weight: 83.3 kg Body Mass Index (BMI) 31.5 Physical Exam Const alert, oriented x3 and no apparent distress Constitutional Narrative: Pleasant elderly female, obese, mildly fatigued appearing but otherwise sitting up comfortably in bed, conversing normally, no acute distress. General Appearance: cooperative and comfortable HEENT normocephalic, head/scalp atraumatic, hearing grossly normal bilaterally and nasal mucous membranes and turbinates normal HEENT Narrative: Dry mucous membranes. Eyes PERRL, EOMs intact bilaterally and conjunctivae normal Neck full ROM Chest inspection of chest normal Resp normal respiratory effort, normal air movement, no use of accessory muscles and clear to auscultation bilaterally Cardio regular rate, regular rhythm, no murmurs and peripheral pulses 2+ throughout GI normal to inspection, nondistended, normoactive bowel sounds, soft to palpation, non-tender and non-distended Back/Spine normal ROM Extremity normal to inspection and full ROM Extremity Narrative: Trace lower extremity edema. Skin no rashes or lesions noted Neuro moves all extremities and no focal motor deficits Speech: speech normal Motor Exam: strength 5/5 throughout Psych mental status grossly normal Results Lab / Micro Data 07/04/23 16:07 07/04/23 16:07 Labs: Laboratory Results - last 24 hr 07/04/23 16:07: WBC 10.9, RBC 4.40, Hgb 13.0, Hct 39.6, MCV 90.0, MCH 29.5, MCHC 32.8, RDW Std Deviation 41.1, RDW Coeff of Basilio 12.5, Plt Count 367, MPV 10.0, Immature Gran % (Auto) 0.300, Neut % (Auto) 76.7 H, Lymph % (Auto) 12.8 L, [place] % (Auto) 8.3, Eos % (Auto) 1.3, Baso % (Auto) 0.6, Absolute Neuts (auto) 8.4 H, Absolute Lymphs (auto) 1.40, Nucleated RBC % 0, Sodium 132 L, Potassium 2.7 L*, Chloride 87 L, Carbon Dioxide 36.0 H, Anion Gap 9, BUN 58 H, Creatinine 1.40 H, Estim Creat Clear Calc 33.46, Est GFR (MDRD) Af Amer 47 L, Est GFR (MDRD) Non-Af 38 L, BUN/Creatinine Ratio 41.4 H, Glucose 150 H, Calcium 9.6 07/04/23 17:00: Urine Color Yellow, Urine Clarity Clear, Urine pH 6.0, Ur Specific [place] 1.010, Urine Protein Negative, Urine Glucose (UA) Normal, Urine Ketones Negative, Urine Occult Blood Negative, Urine Nitrite Negative, Urine Bilirubin Negative, Urine Urobilinogen Normal, Ur Leukocyte Esterase 25 H, Urine RBC 0 SEEN, Urine WBC 0-5 SEEN, Ur Squamous Epith Cells 0-5 SEEN, Urine Bacteria RARE, Hyaline Casts 0-5 SEEN, Urine Mucus 0 SEEN Imaging Radiology Impression Brain CT 07/04/23 15:37 IMPRESSION: Mild periventricular white matter ischemic change. No acute intracranial hemorrhage Electronically Signed: Yang Lopez MD at 16:35 EDT Reading Location ID and State: [facility] / MD Tel , Service support , Cervical Spine CT 07/04/23 15:37 IMPRESSION: Mild spondylosis. No acute fracture or other significant abnormality. Electronically Signed: Yang Lopez MD at 16:46 EDT , Hip/Pelvis X-Ray 07/04/23 16:15 IMPRESSION: Stable appearance to bilateral hip prostheses.. No evidence for acute hip or pelvic fracture Electronically Signed: Yang Lopez MD at 16:49 EDT , Shoulder X-Ray 07/04/23 16:15 IMPRESSION: Degenerative changes. No acute fracture or dislocation Electronically Signed: Yang Lopez MD at 16:47 EDT , Assessment & Plan Assessment/Plan (1) Postural dizziness with presyncope: (2) Fall: (3) PRIYA (acute kidney injury): PLAN: Plan Patient is an 78-year-old female who presented [facility] ED on 07/04/2023 with dizziness and a fall at home. 1. Presyncopal symptoms ? Suspected secondary to orthostatic hypotension due to hypovolemia from recent overdiuresis. ? Normotensive in the ED but orthostatic vital signs were not checked. Labs consistent with dehydration from overdiuresis as noted below. EKG showed normal sinus rhythm, no ST changes. ? Follows with cardiology in the office, last visit in 11/2022. Last echo in 05/2022 showed normal EF, stage I diastolic dysfunction, no notable valve disease, no other abnormalities. ? Admit under inpatient status to PCU. Cardiology consulted. Echo ordered. Continue cardiac monitoring. Orthostatic vital signs ordered. Started on maintenance normal saline in the ED, will continue until patient has received 1 L of IV fluids total. Hold home diuretics. 2. Mechanical fall onto right side ? Presumed secondary to presyncopal symptoms as noted above. Fell onto right side and reported right-sided head and neck pain, right shoulder, right hip and right leg pain. ? CT head and C-spine without contrast showed no acute intracranial hemorrhage, mild chronic changes. Right shoulder x-ray showed degenerative changes with no acute fracture or dislocation. Hip/pelvis x-ray showed stable bilateral hip prostheses, no evidence of acute hip or pelvic fracture. ? PT/OT/case management consulted. Fall precautions in place. Conservative pain management as needed. 3. PRIYA ? Creatinine 1.40 on admit, baseline creatinine 0.8-0.9. Presumed prerenal etiology from overdiuresis. Given IV fluids on admission and encouraged p.o. intake as noted above. Follow-up a.m. BMP and urine output. 4. Hypokalemia ? Potassium 2.7 on admit. Presumed secondary to heavy diuresis from p.o. Lasix 40 mg twice daily at home. Holding home diuretics. Aggressive potassium replacement for now. Follow-up a.m. BMP. Magnesium ordered, replete as needed. 5. Hyponatremia ? Sodium 132, chloride 87 on admit. Likely secondary to hypovolemic hyponatremia. Follow-up a.m. labs after IV fluid resuscitation as noted above. 6. Type 2 diabetes mellitus with mild hyperglycemia ? Home regimen of insulin glargine 40 units in the morning. Blood glucose 150 on admit. Last A1c 8.2% in 06/2022. Will start Lantus 32 units in the morning and sliding scale insulin with meals for now, adjust as needed. Repeat A1c ordered. 7. History of stage I diastolic dysfunction with chronic lower extremity edema, history of hypertension ? Last echo showed stage I diastolic dysfunction as noted above. Patient reports history of chronic lower extremity edema, has been on Lasix 40 mg twice daily for some time for this. Reported worsening over the past month or so until last week, when she says it was the worst it has ever been. Since her PCP started her on spironolactone, her lower extremity swelling has significantly improved. ? Likely that lower extremity swelling is in large part due to chronic venous insufficiency. ? Cardiology consulted as above. Repeat echo ordered. Holding home diuretics for now, appreciate further recommendations from cardiology. Chronic medical conditions: ? Obesity: BMI 30.8 on admit. Complicates hospital course, care and prognosis. ? History of VTE: Continue home Eliquis 5 mg twice daily. ? COPD: Stable, not on home O2. Not in acute exacerbation. Continue home inhalers. ? Back pain with neuropathy: Continue home duloxetine. ? Hypothyroidism: TSH ordered. Continue home Synthroid. ? GERD: Continue home PPI. ? Hyperlipidemia: Continue home statin. ? Seizure disorder: Continue home Topamax. DVT prophylaxis: Eliquis CODE STATUS: Full code, verified Expected disposition: Home, 2 to 3 days Total clinical time spent by myself addressing the patient's medical issues, reviewing all the data, and collaborating with patient's care team: 55 minutes. Charges/Coding Visit Charges Inpatient E&M: 62037 Init Hosp L2
[2023-07-04] MEDS: 0.9% Normal Saline (1000mL) 1,000 ML 150 ML IV (18:53)
--- NOTE | 2023-07-04 19:41 | ECHOD_ITS ---
Reason For Study: Syncope Procedure This was a 2D Doppler, Color Flow transthoracic echocardiogram. The study was technically difficult. Exam performed portable in patient room. Left Ventricle Normal LV size. Left ventricular systolic function is normal. The estimated ejection fraction is 65 %. Stage 1 diastolic dysfunction. No regional wall motion abnormalities noted. Right Ventricle Normal RV size. Normal systolic function. Atria Normal left atrium. Normal right atrium. Mitral Valve Normal mitral valve. Tricuspid Valve Normal tricuspid valve. Mild (1+) tricuspid valve insufficiency. Pulmonary artery systolic pressure is 27 mmHg. Aortic Valve Trisinus/trileaflet aortic valve. Pulmonic Valve Normal pulmonic valve. Great Vessels Normal aortic root. The pulmonary artery is normal size. Inferior vena cava collapse with sniff. Pericardium/Pleural No pericardial effusion. MMode/2D Measurements & Calculations LVIDd: 4.7 cm IVSd: 1.0 cm LA dimension: 2.6 cm LVIDs: 2.9 cm LVPWd: 0.97 cm FS: 37.2 % Time Measurements MV dec time: 0.20 sec Doppler Measurements & Calculations MV E max franck: 76.9 cm/sec Lat Peak E' Franck: 8.7 cm/sec Med Peak E' Franck: 7.3 cm/sec MV A max franck: 84.7 cm/sec E/E' lat: 8.8 E/E' med: 10.5 MV E/A: 0.91 MV V2 max: 107.1 cm/sec MV P1/2t max franck: 84.7 cm/sec Ao V2 max: 177.7 cm/sec MV max P.6 mmHg MV P1/2t: 64.4 msec Ao max P.6 mmHg MV V2 mean: 55.8 cm/sec Ao V2 mean: 109.2 cm/sec MV mean P.5 mmHg MV dec slope: 385.2 cm/sec2 Ao mean P.8 mmHg MV V2 VTI: 31.2 cm MVA(P1/2t): 3.4 cm2 Ao V2 VTI: 34.9 cm AV (velocity ratio): 0.68 LV V1 max: 102.3 cm/sec PA V2 max: 120.4 cm/sec TR max franck: 243.8 cm/sec LV V1 max P.2 mmHg PA V2 mean: 78.4 cm/sec TR max P.8 mmHg LV V1 mean P.3 mmHg LV V1 mean: 71.7 cm/sec LV V1 VTI: 23.8 cm ECHO/Echo Complete Interpretation Summary Normal LV size. Left ventricular systolic function is normal. The estimated ejection fraction is 65 %. Stage 1 diastolic dysfunction. Ordering Physician: Willard Jones Referring Physician: Gael Garza Performed By: Srikanth Stoll RCS
[2023-07-04] MEDS: Potassium Chloride Oral Tablet 20 MEQ 60 MEQ PO (20:35)
[2023-07-04] MEDS: Atorvastatin Calcium 10 MG Tablet PO (20:36)
[2023-07-04] MEDS: Topiramate 25 MG Tablet 50 MG PO (20:43)
[2023-07-04 20:45] LABS: Magnesium 2.8 mg/dL (1.6-2.6)
[2023-07-04 20:57] LABS: Hemoglobin A1c 6.7 % (3.8-5.6)
[2023-07-04 21:32] LABS: Bedside Glucose 138 mg/dL (74-106)
[2023-07-04] MEDS: APIXABAN 5 MG TABLET PO (21:58)
[2023-07-04] MEDS: Pramipexole Di-HCl 0.25 MG Tablet 0.75 MG PO (21:58)
[2023-07-04] MEDS: 0.9% Normal Saline (1000mL) 1,000 ML 125 ML IV (21:59)
[2023-07-04] MEDS: 0.9% Saline Lock 10 ML Syringe IV (22:15)
[2023-07-05] MEDS: Levothyroxine 100 MCG Tablet PO (06:18)
[2023-07-05 06:47] LABS: Bedside Glucose 125 mg/dL (74-106)
--- NOTE | 2023-07-05 07:21 | PCM.CONS.C ---
Assessment & Plan Assessment/Plan (1) Postural dizziness with presyncope: PLAN: Patient appears to have some postural dizziness with presyncope. The above is likely secondary to overdiuresis. She has been on Lasix as well as spironolactone. I would recommend reducing the dose of both of these giving her some IV fluids and discharging her for outpatient follow-up. (2) Essential hypertension: PLAN: Blood pressure appears to under good control at this particular time I would not recommend that we make any major changes. (3) History of pulmonary embolism: PLAN: She has a history of remote pulmonary embolism for which she is on Eliquis. This will be continued. Thank you most kindly for this consult. HPI Consult Data Date of Consult: 07/05/23 HPI Narrative HPI Narrative: DUNG MEEK, is a 78 F who presents to the emergency room with dizziness and presyncope. She says that this occurs when she gets up from the seated position. This apparently has been going on for a few days. She has a history of hypertension, previous pulmonary emboli, and history of deep vein thrombosis. Her last echocardiogram in 2020 demonstrated preserved left ventricular systolic function mild concentric hypertrophy. At her last visit she had been doing well in the office with no major complaints. She had been stable on her current medications and presented to the emergency room with the above complaints. Blood work done demonstrated an elevated BUN to creatinine ratio she was admitted and cardiology was consulted for overdiuresis. [facility] Medical History Asthma COPD (chronic obstructive pulmonary disease) Depression Diabetes mellitus type II, controlled Edema Esophageal spasm Essential hypertension GERD (gastroesophageal reflux disease) Hiatal hernia History of basal cell carcinoma (BCC) History of DVT (deep vein thrombosis) History of pulmonary embolism Hyperlipidemia Hypothyroidism IBS (irritable bowel syndrome) Kidney disease Left-sided chest wall pain Lumbar back pain Lung disease Obesity (BMI 30.0-34.9) JHONY (obstructive sleep apnea) Osteoarthritis Parkinsons disease Premature atrial contractions Seizure disorder Sleep apnea Symptomatic bradycardia Venous insufficiency Home Medications omeprazole 20 mg capsule,delayed release 20 mg PO DAILY ACID REFLUX 06/19/17 [History Last Taken 07/04/23] simvastatin 20 mg tablet 20 mg PO QHS 90 days #90 tabs 09/01/17 [History Last Taken 07/03/23] albuterol sulfate 90 mcg/actuation aerosol inhaler 2 puff inhalation Q4H PRN Sob &/Or Wheezing 12/04/20 [History Last Taken Unknown] duloxetine 60 mg capsule,delayed release 60 mg PO DAILY 12/04/20 [History Last Taken 07/04/23] furosemide 40 mg tablet 40 mg PO BID #180 tabs 01/18/21 [Rx Last Taken 07/04/23] inhalational spacing device (POCKET CHAMBER spacer) #1 ea 01/23/21 [Rx Last Taken Unknown] diphenhydramine HCl 25 mg capsule (Benadryl) 25 mg PO QHS PRN Insomnia 06/02/21 [History Last Taken 07/03/23] insulin glargine 100 unit/mL (3 mL) subcutaneous pen (Lantus Solostar U-100 Insulin) 40 unit subcut QAM 06/02/21 [History Last Taken 07/04/23] topiramate 25 mg tablet 25 mg PO BID 06/02/21 [History Last Taken 07/04/23] ascorbic acid (vitamin C) 500 mg tablet 500 mg PO DAILY SUPPLEMENT 08/31/21 [History Last Taken 07/04/23] levothyroxine 100 mcg tablet 100 mcg PO DAILY THYROID 08/31/21 [History Last Taken 07/04/23] lubiprostone 24 mcg capsule 24 mcg PO BIDCM 08/31/21 [History Last Taken 07/04/23] acetaminophen 500 mg tablet 1,000 mg PO Q4H PRN fever or pain 04/12/22 [History Last Taken 07/04/23] potassium citrate 5 mEq (540 mg) tablet,extended release 5 meq PO DAILY 05/18/22 [History Last Taken 07/04/23] apixaban 5 mg tablet (Eliquis) 5 mg PO BID #60 tabs 07/21/22 [Rx Last Taken 07/04/23] spironolactone 50 mg tablet 25 mg (1/2 x 50 mg) PO DAILY #90 tabs 01/09/23 [Rx Last Taken 07/04/23] cholecalciferol (vitamin D3) 125 mcg (5,000 unit) tablet (Vitamin D3) 125 mcg PO DAILY 07/04/23 [History Last Taken 07/04/23] doxepin 10 mg capsule 10 mg PO DAILY parkinsons 07/04/23 [History Last Taken 07/03/23] meclizine 25 mg tablet 12.5 - 25 mg PO PRN PRN dizziness 07/04/23 [History Last Taken Unknown] pramipexole 0.75 mg tablet 0.75 mg PO BID 07/04/23 [History Last Taken 07/04/23] triamcinolone acetonide 0.5 % topical cream 1 applic topical BID PRN skin irritation 07/04/23 [History Last Taken 07/04/23] Allergy/AdvReac Type Severity Reaction Status Date / Time nitrofurantoin Allergy Hives Verified 07/04/23 15:01 macrocrystalline [From Macrodantin] tree and shrub pollen Allergy Hives Verified 07/04/23 15:01 rosuvastatin [From Crestor] AdvReac Severe Muscle Verified 07/04/23 15:01 weakness colesevelam [From WelChol] AdvReac Intermediate nausea Verified 07/04/23 15:01 nitrofurantoin AdvReac Intermediate Hives Verified 07/04/23 15:01 [From Furadantin] metformin AdvReac Unknown Gi side Verified 07/04/23 15:01 effects Family History Father CAD (coronary artery disease) Diabetes Myocardial infarction Alzheimers disease Hypertension Parkinson's disease Cancer melanoma History of blood clots Mother Diabetes AAA (abdominal aortic aneurysm) Bleeding disorder Colon cancer Thyroid disorder Brother Multiple sclerosis Skin cancer Surgical History History of cholecystectomy History of lumbar fusion (~2012) History of Belkys fundoplication History of right hip replacement (~07/08/15) History of tonsillectomy and adenoidectomy Hx of hernia repair Hx of lumbar discectomy Social History household members: spouse and none Smoking Status: Never smoker alcohol intake: never substance use type: does not use diet: diabetic and gluten free caffeine: No what type of physical activity do you participate in: none seatbelt use: always do you feel safe at home: Yes ROS Constitutional Constitutional: Reports fatigue; Denies chills, fever(s) or weakness Eyes Eyes: Denies change in vision Cardiovascular Cardiovascular: Reports edema and lightheadedness; Denies chest pain, dyspnea on exertion, orthopnea, palpitations, rapid heart rate or syncope Respiratory/Chest Respiratory/Chest: Denies cough, shortness of breath at rest or wheezing Gastrointestinal Gastrointestinal: Denies abdominal pain, constipation, diarrhea, nausea or vomiting Genitourinary Genitourinary: Denies dysuria Musculoskeletal Musculoskeletal: Reports joint pain and neck pain; Denies arthralgias, back pain or myalgias Neurologic Neurologic: Reports dizziness; Denies confusion, focal weakness, headache(s), numbness, paresthesias, syncope or tingling Physical Exam Const alert, oriented x3 and no apparent distress General Appearance: cooperative HEENT hearing grossly normal bilaterally Head and Scalp: atraumatic Eyes EOMs intact bilaterally Neck General: normal visual inspection Chest inspection of chest normal and palpation of chest normal Resp normal respiratory effort Auscultation: clear to auscultation bilaterally Cardio regular rate, regular rhythm, S1 normal heart sound and S2 normal heart sound Jugular Venous Distention: JVD GI normal to inspection, nondistended, normoactive bowel sounds Extremity normal capillary refill and no pedal edema Peripheral Pulses: Yes pulses 2+ throughout and femoral pulses present Skin no rashes or lesions noted Neuro oriented x3 and CN's II-XII intact bilaterally Psych Appearance: grossly normal and appropriate Risk Stratification Risk Stratification Applicable: No Objective Data Vital Signs: Vital Signs Temp Pulse Resp BP Pulse Ox O2 Del Method 97.8 F 56 L 16 115/55 L 99 Room Air 07/04/23 18:53 07/04/23 19:41 07/04/23 18:53 07/04/23 19:41 07/04/23 18:53 07/05/23 04:10 Oxygen Delivery Method Room Air Weight: 179 lb 3.773 oz Body Mass Index (BMI) 30.7 Intake & Output: Intake and Output for Last 24 Hours 07/03/23 07/04/23 07/05/23 23:59 23:59 23:59 Intake Total 1205 / 1205 852.08 / 852.08 Balance 1205 / 1205 852.08 / 852.08 Lab / Micro Data 07/04/23 16:07 07/04/23 16:07 Labs: Laboratory Results - last 24 hr 07/04/23 16:07: WBC 10.9, RBC 4.40, Hgb 13.0, Hct 39.6, MCV 90.0, MCH 29.5, MCHC 32.8, RDW Std Deviation 41.1, RDW Coeff of Basilio 12.5, Plt Count 367, MPV 10.0, Immature Gran % (Auto) 0.300, Neut % (Auto) 76.7 H, Lymph % (Auto) 12.8 L, [place] % (Auto) 8.3, Eos % (Auto) 1.3, Baso % (Auto) 0.6, Absolute Neuts (auto) 8.4 H, Absolute Lymphs (auto) 1.40, Nucleated RBC % 0, Sodium 132 L, Potassium 2.7 L*, Chloride 87 L, Carbon Dioxide 36.0 H, Anion Gap 9, BUN 58 H, Creatinine 1.40 H, Estim Creat Clear Calc 33.46, Est GFR (MDRD) Af Amer 47 L, Est GFR (MDRD) Non-Af 38 L, BUN/Creatinine Ratio 41.4 H, Glucose 150 H, Hemoglobin A1c 6.7 H, Calcium 9.6, Magnesium 2.8 H 07/04/23 17:00: Urine Color Yellow, Urine Clarity Clear, Urine pH 6.0, Ur Specific [place] 1.010, Urine Protein Negative, Urine Glucose (UA) Normal, Urine Ketones Negative, Urine Occult Blood Negative, Urine Nitrite Negative, Urine Bilirubin Negative, Urine Urobilinogen Normal, Ur Leukocyte Esterase 25 H, Urine RBC 0 SEEN, Urine WBC 0-5 SEEN, Ur Squamous Epith Cells 0-5 SEEN, Urine Bacteria RARE, Hyaline Casts 0-5 SEEN, Urine Mucus 0 SEEN 07/04/23 20:09: POC Glucose 138 H 07/05/23 06:20: POC Glucose 125 H Cardiology Labs/Tests 07/04/23 16:07: WBC 10.9, RBC 4.40, Hgb 13.0, Hct 39.6, MCV 90.0, MCH 29.5, MCHC 32.8, Plt Count 367, MPV 10.0, Immature Gran % (Auto) 0.300, Neut % (Auto) 76.7 H, Lymph % (Auto) 12.8 L, [place] % (Auto) 8.3, Eos % (Auto) 1.3, Baso % (Auto) 0.6, Absolute Neuts (auto) 8.4 H, Nucleated RBC % 0, Sodium 132 L, Potassium 2.7 L*, Chloride 87 L, Carbon Dioxide 36.0 H, Anion Gap 9, BUN 58 H, Creatinine 1.40 H, Est GFR (MDRD) Af Amer 47 L, Est GFR (MDRD) Non-Af 38 L, BUN/Creatinine Ratio 41.4 H, Glucose 150 H, Hemoglobin A1c 6.7 H, Calcium 9.6, Magnesium 2.8 H 07/04/23 17:00: Urine Color Yellow, Urine Clarity Clear, Urine pH 6.0, Ur Specific [place] 1.010, Urine Protein Negative, Urine Glucose (UA) Normal, Urine Ketones Negative, Urine Occult Blood Negative, Urine Nitrite Negative, Urine Bilirubin Negative, Urine Urobilinogen Normal, Ur Leukocyte Esterase 25 H, Urine RBC 0 SEEN, Urine WBC 0-5 SEEN Rhythm: EKG: ECHO: Stress Test: Cardiac Cath: PCI: CT Surgery: Holter monitor: EPS: PPM: CXR: Chest CT Scan: Radiography Diagnostic Testing: Radiology Impression Brain CT 07/04/23 15:37 IMPRESSION: Mild periventricular white matter ischemic change. No acute intracranial hemorrhage Electronically Signed: Yang Lopez MD at 16:35 EDT Reading Location ID and State: [facility] / [place] Tel [phone], Service support , Cervical Spine CT 07/04/23 15:37 IMPRESSION: Mild spondylosis. No acute fracture or other significant abnormality. Electronically Signed: Yang Lopez MD at 16:46 EDT Reading Location ID and State: [facility] / [place] Tel [phone], Service support , Hip/Pelvis X-Ray 07/04/23 16:15 IMPRESSION: Stable appearance to bilateral hip prostheses.. No evidence for acute hip or pelvic fracture Electronically Signed: Yang Lopez MD at 16:49 EDT , Shoulder X-Ray 07/04/23 16:15 IMPRESSION: Degenerative changes. No acute fracture or dislocation Electronically Signed: Yang Lopez MD at 16:47 EDT Reading Location ID and State: [facility] / [place] Tel , Service support ,
[2023-07-05 07:40] LABS: Hematocrit 36.9 % (37-47); Hemoglobin 12.2 g/dL (12.0-15.0); Mean Corp Hgb Conc 33.1 g/dL (32-36); Mean Corpuscular Hgb 29.6 pg (27.0-32.0); Mean Corpuscular Volume 89.6 fL (81-99); Platelet Count 343 K/mm3 (150-450); RBC Distribution Width CV 12.5 % (11.6-14.6); RBC Distribution Width SD 40.8 fl (35.1-43.9); Red Blood Count 4.12 M/mm3 (4.2-5.4); White Blood Count 9.6 K/mm3 (4.4-11.0)
[2023-07-05 08:23] LABS: Anion Gap 6 (5-15); BUN 44 mg/dL (7-18); BUN/Creat Ratio 47.2 RATIO (10-20); Calcium,Total 9.2 mg/dL (8.5-10.1); Chloride 97 mmol/L (98-107); Creatinine, Serum 0.93 mg/dL (0.55-1.02); EST Glomerular Filtration Rate 61 mL/min (>60); Est Glom Filt Rate - Afr Amer 74 mL/min (>60); Estimated Creatinine Clearance 49.77 ml/min; Glucose 133 mg/dL (74-106); Potassium 3.5 mmol/L (3.5-5.1); Sodium Level 133 mmol/L (136-145)
[2023-07-05 08:25] VITALS: BP 113/58; PULSE 69; RESP 16; TEMP 36.7; O2SAT 94
[2023-07-05] MEDS: Lactated Ringers 1,000 ML 75 ML IV ×2 (08:27→21:06)
[2023-07-05] MEDS: Insulin Glargine-YFGN 100 UNIT/ML Pen 32 UNIT SC (08:29)
[2023-07-05] MEDS: APIXABAN 5 MG TABLET PO ×2 (08:30→21:05)
[2023-07-05] MEDS: DULoxetine Hcl 60 MG Capsule PO (08:30)
[2023-07-05] MEDS: Pantoprazole Sodium 20 MG Tablet PO (08:30)
[2023-07-05] MEDS: Pramipexole Di-HCl 0.25 MG Tablet 0.75 MG PO ×2 (08:31→21:04)
[2023-07-05] MEDS: Topiramate 25 MG Tablet 50 MG PO ×2 (08:31→21:04)
[2023-07-05 09:50] LABS: Thyroid Stim Hormone (TSH) 3.94 uIU/mL (0.358-3.74)
--- NOTE | 2023-07-05 10:30 | CASEMGMT ---
RN CM Face to Face with patient for initial transition planning/care coordination assessment. RN CM introduced self and role at [facility]. Patient lying in bed, alert and oriented. Patient willing to participate in assessment and is able to answer all questions appropriately. Care providers, pharmacy, and demographics verified. PCP: Greg Specialists: Dalia, lawn specialist; Smita, pulmonology; Michael, urologist Preferred Pharmacy: [facility] Insurance: [employer] MCR Prescription Benefit: yes Living Will/HPOA: yes, daughter Laure Alcantara LNOK: , daughters Living Arrangements: Patient lives with in a 2 story home with bed and bath on first floor, 1 steps and railing to enter the home. Patient states she is independenet at home. Transportation: self, , daughter in law DME/HHC: Patient states she has shower chair, raised toilet, cane, walker, rollator, cpap, pulse ox, and glucometer at home. Patient has been to [facility] and [facility] in the past. Patient has had [facility] in the past. Patient wishes to discharge home, will monitor for HHC at discharge. Patient states she has no further needs or concerns at this time. CM to follow for discharge planning needs that may arise. Disposition Plan: Patient to discharge home with family support and follow-up plans in place. Will monitor for HHC. Mely MEHTA, RN, CM
[2023-07-05] MEDS: Insulin Lispro 100 UNIT/ML INSULN.PEN SC ×2 (11:32→21:03)
[2023-07-05 11:53] LABS: Bedside Glucose 195 mg/dL (74-106)
[2023-07-05 14:00] VITALS: BP 121/68; PULSE 72; RESP 16; TEMP 36.8; O2SAT 93
[2023-07-05 17:19] LABS: Bedside Glucose 141 mg/dL (74-106)
--- NOTE | 2023-07-05 18:17 | PCM.PN.HOSP ---
Reason for Visit Reason for Visit: Diagnoses Essential (primary) hypertension (07/04/23) Acute kidney failure, unspecified (07/04/23) Dizziness and giddiness (07/04/23) Syncope and collapse (07/04/23) Unspecified fall, initial encounter (07/04/23) Personal history of pulmonary embolism (07/04/23) Subjective Subjective Patient was seen and examined today, her creatinine has improved since yesterday, I talked with her who was in the room at the time of my examination. Patient states she takes diuretics at home due to leg edema. I reviewed cardiology's consultation, they recommended the patient be given fluids and diuretics be readjusted time for discharge home. Objective Data Objective Data Vital Signs: Vital Signs Temp Pulse Resp BP Pulse Ox O2 Del Method 98.2 F 72 16 121/68 H 93 Room Air 07/05/23 14:00 07/05/23 14:00 07/05/23 14:00 07/05/23 14:00 07/05/23 14:00 07/05/23 14:00 Oxygen Delivery Method Room Air Weight: 81.3 kg Body Mass Index (BMI) 30.7 Intake & Output: Intake and Output for Last 24 Hours 07/03/23 07/04/23 07/05/23 23:59 23:59 23:59 Intake Total 1205 / 1205 852.08 / 852.08 Balance 1205 / 1205 852.08 / 852.08 Lab / Micro Data 07/05/23 07:18 07/05/23 07:18 Labs: Laboratory Results - last 24 hr 07/04/23 16:07: Hemoglobin A1c 6.7 H, Magnesium 2.8 H 07/04/23 20:09: POC Glucose 138 H 07/05/23 06:20: POC Glucose 125 H 07/05/23 07:18: WBC 9.6, RBC 4.12 L, Hgb 12.2, Hct 36.9 L, MCV 89.6, MCH 29.6, MCHC 33.1, RDW Std Deviation 40.8, RDW Coeff of Basilio 12.5, Plt Count 343, MPV 10.0, Sodium 133 L, Potassium 3.5, Chloride 97 L, Carbon Dioxide 30.0, Anion Gap 6, BUN 44 H, Creatinine 0.93, Estim Creat Clear Calc 49.77, Est GFR (MDRD) Af Amer 74, Est GFR (MDRD) Non-Af 61, BUN/Creatinine Ratio 47.2 H, Glucose 133 H, Calcium 9.2, TSH 3.94 H 07/05/23 11:26: POC Glucose 195 H 07/05/23 16:56: POC Glucose 141 H Radiography Diagnostic Testing: Radiology Impression Echocardiogram 07/04/23 19:41 Interpretation Summary Normal LV size. Left ventricular systolic function is normal. The estimated ejection fraction is 65 %. Stage 1 diastolic dysfunction. Ordering Physician: Willard Jones Referring Physician: Gael Garza Performed By: Srikanth Stoll RCS Physical Exam Const alert, oriented x3, no apparent distress and average body habitus General Appearance: cooperative, well kempt and well developed Orientation / Consciousness: awake, oriented to person, oriented to place and oriented to time HEENT normocephalic, head/scalp atraumatic and moist oral mucous membranes Eyes PERRL, EOMs intact bilaterally and conjunctivae normal Neck supple, no JVD, thyroid normal and no carotid bruits General: trachea midline Resp normal respiratory effort, no retractions, no use of accessory muscles and clear to auscultation bilaterally Auscultation: Negative for rales, rhonchi or wheezes Cardio regular rate, regular rhythm, S1 normal heart sound, S2 normal heart sound, no murmurs, no rub and no gallops GI normal to inspection, nondistended, normoactive bowel sounds, soft to palpation, non-tender and non-distended Extremity no clubbing, cyanosis or edema Skin no rashes or lesions noted General Skin Exam: no breakdown Neuro oriented x3, CN's II-XII intact bilaterally, moves all extremities, no focal motor deficits and no sensory deficits noted Sensorium / Orientation: awake and alert Speech: speech normal Psych affect normal Assessment & Plan Assessment/Plan (1) Postural dizziness with presyncope: PLAN: Plan 1. Presyncope secondary to volume depletion-patient's diuretics are being held, she has been given IV fluids, her diuretics will need to be adjusted at the time of discharge from the hospital. 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
[2023-07-05 20:54] VITALS: BP 116/66; PULSE 73; RESP 18; TEMP 36.6; O2SAT 97
[2023-07-05] MEDS: Atorvastatin Calcium 10 MG Tablet PO (21:05)
[2023-07-05 21:27] LABS: Bedside Glucose 215 mg/dL (74-106)
[2023-07-06 02:52] VITALS: BP 102/59; PULSE 66; RESP 18; TEMP 36.7; O2SAT 96
[2023-07-06] MEDS: Levothyroxine 100 MCG Tablet PO (05:08)
[2023-07-06 08:03] LABS: Anion Gap 6 (5-15); BUN 27 mg/dL (7-18); BUN/Creat Ratio 32.8 RATIO (10-20); Calcium,Total 9.3 mg/dL (8.5-10.1); Chloride 99 mmol/L (98-107); Creatinine, Serum 0.82 mg/dL (0.55-1.02); EST Glomerular Filtration Rate 71 mL/min (>60); Est Glom Filt Rate - Afr Amer 86 mL/min (>60); Estimated Creatinine Clearance 56.44 ml/min; Glucose 95 mg/dL (74-106); Potassium 3.2 mmol/L (3.5-5.1); Sodium Level 136 mmol/L (136-145)
[2023-07-06 08:50] VITALS: BP 116/57; PULSE 68; RESP 14; TEMP 36.8; O2SAT 97
[2023-07-06] MEDS: APIXABAN 5 MG TABLET PO (09:01)
[2023-07-06] MEDS: Pantoprazole Sodium 20 MG Tablet PO (09:01)
[2023-07-06] MEDS: Pramipexole Di-HCl 0.25 MG Tablet 0.75 MG PO (09:01)
[2023-07-06] MEDS: Potassium Chloride Oral Tablet 20 MEQ 40 MEQ PO (09:01)
[2023-07-06] MEDS: Insulin Glargine-YFGN 100 UNIT/ML Pen 32 UNIT SC (09:02)
[2023-07-06] MEDS: DULoxetine Hcl 60 MG Capsule PO (09:02)
[2023-07-06] MEDS: Topiramate 25 MG Tablet 50 MG PO (09:02)
--- NOTE | 2023-07-06 10:39 | DCINST_ITS ---
Discharge Instructions Diet Discharge Diet: No restrictions Activity Discharge Activity: Return to Normal Activity Weight Bearing Status: Full weight bearing Follow Up Care Test Results: Test results from this visit will be discussed in further detail at your follow- up appointment, if applicable. Discharge Plan Admission Admit Date/Time: 07/04/23 18:38 Primary Reason for Your Visit: Acute kidney injury Attending Provider: Gael Skinner Primary Care Provider: Gael Garza Consulting Providers: Rolando Gómez; Willard Jones Discharge Orders/Prescriptions Prescriptions: New potassium chloride 20 mEq tablet,ER particles/crystals 20 meq PO DAILY Qty: 30 0RF Continued omeprazole 20 mg capsule,delayed release(DR/EC) 20 mg PO DAILY simvastatin 20 mg tablet 20 mg PO QHS 90 Days Qty: 90 duloxetine 60 mg capsule,delayed release(DR/EC) 60 mg PO DAILY Lantus Solostar U-100 Insulin 100 unit/mL (3 mL) insulin pen 40 unit subcut QAM topiramate 25 mg tablet 25 mg PO BID diphenhydramine HCl [Benadryl] 25 mg capsule 25 mg PO QHS PRN (Reason: Insomnia) albuterol sulfate 90 mcg/actuation HFA aerosol inhaler 2 puff inhalation Q4H PRN (Reason: Sob &/Or Wheezing) levothyroxine 100 mcg tablet 100 mcg PO DAILY ascorbic acid (vitamin C) 500 mg Tablet 500 mg PO DAILY lubiprostone 24 mcg capsule 24 mcg PO BIDCM acetaminophen 500 mg tablet 1,000 mg PO Q4H PRN (Reason: fever or pain) cholecalciferol (vitamin D3) [Vitamin D3] 125 mcg (5,000 unit) tablet 125 mcg PO DAILY triamcinolone acetonide 0.5 % cream 1 applic topical BID PRN (Reason: skin irritation) doxepin 10 mg capsule 10 mg PO DAILY pramipexole 0.75 mg tablet 0.75 mg PO BID meclizine 25 mg tablet 12.5 - 25 mg PO PRN PRN (Reason: dizziness) Eliquis 5 mg tablet 5 mg PO BID Qty: 60 12RF Changed furosemide 40 mg tablet 40 mg PO DAILY Qty: 180 3RF Discontinued potassium citrate 5 mEq (540 mg) tablet extended release 5 meq PO DAILY spironolactone 50 mg tablet 25 mg PO DAILY Qty: 90 3RF No Action (DME) POCKET CHAMBER Spacer See Rx Instructions .ROUTE .MEDSUPPLY Qty: 1 0RF Rx Instructions: As directed Referrals / Follow Up: Rolando Gómez MD [Med Staff - Active Staff] - See Referral Note (as scheduled) Gael Garza DO [Primary Care Provider] - See Referral Note (At regular office time) Disposition Disposition (needs filled in before D/C Order can be placed): Home, Self Care
[2023-07-06] MEDS: Insulin Lispro 100 UNIT/ML INSULN.PEN SC (11:14)
--- NOTE | 2023-07-06 11:29 | PCM.DC.SUM ---
Providers Date of Admission: 07/04/23 Date of Discharge: 07/02/23 Primary Care Physician: Dr. Gael Garza, Consultations 07/04/23 19:41 Consult: Cardiology Routine Consulting Provider: Rolando Gómez Reason for Consult: HFpEF, PRIYA from suspected overdiuresis EMERGENT Consult: No MD Notified: Yes Date Notified: 07/05/23 Time Notified: 06:37 Method of Notification: Text Reason For Visit: PRESYNCOPAL SYMPTOMS, PRIYA Diagnosis Discharge Diagnosis (1) Postural dizziness with presyncope: Status: Acute Code(s): R42 - Dizziness and giddiness; R55 - Syncope and collapse Plan 1. Presyncope secondary to volume depletion-patient's diuretics are being held, she has been given IV fluids, her diuretics will need to be adjusted at the time of discharge from the hospital. 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 #6 hypothyroidism-patient is on Synthroid #7 essential hypertension-patient's diuretics have been held at this time Total clinical time spent by myself addressing the patient's medical issues, reviewing over data, and collaborating with patient's care team: 35 minutes Medications at Discharge Home Medications omeprazole 20 mg capsule,delayed release 20 mg PO DAILY ACID REFLUX 06/19/17 simvastatin 20 mg tablet 20 mg PO QHS cholesterol 90 days #90 tabs 09/01/17 albuterol sulfate 90 mcg/actuation aerosol inhaler 2 puff inhalation Q4H PRN Sob &/Or Wheezing 12/04/20 duloxetine 60 mg capsule,delayed release 60 mg PO DAILY mental health 12/04/20 inhalational spacing device (POCKET CHAMBER spacer) #1 ea 01/23/21 diphenhydramine HCl 25 mg capsule (Benadryl) 25 mg PO QHS PRN Insomnia 06/02/21 insulin glargine 100 unit/mL (3 mL) subcutaneous pen (Lantus Solostar U-100 Insulin) 40 unit subcut QAM diabetes 06/02/21 topiramate 25 mg tablet 25 mg PO BID seizures 06/02/21 ascorbic acid (vitamin C) 500 mg tablet 500 mg PO DAILY SUPPLEMENT 08/31/21 levothyroxine 100 mcg tablet 100 mcg PO DAILY THYROID 08/31/21 lubiprostone 24 mcg capsule 24 mcg PO BIDCM bowels 08/31/21 acetaminophen 500 mg tablet 1,000 mg PO Q4H PRN fever or pain 04/12/22 apixaban 5 mg tablet (Eliquis) 5 mg PO BID blood thinner #60 tabs 07/21/22 cholecalciferol (vitamin D3) 125 mcg (5,000 unit) tablet (Vitamin D3) 125 mcg PO DAILY vitamin 07/04/23 doxepin 10 mg capsule 10 mg PO DAILY parkinsons 07/04/23 meclizine 25 mg tablet 12.5 - 25 mg PO PRN PRN dizziness 07/04/23 pramipexole 0.75 mg tablet 0.75 mg PO BID parkinsons 07/04/23 triamcinolone acetonide 0.5 % topical cream 1 applic topical BID PRN skin irritation 07/04/23 furosemide 40 mg tablet 40 mg PO DAILY #180 tabs 07/06/23 potassium chloride 20 mEq tablet,extended release(part/cryst) 20 meq PO DAILY #30 tabs 07/06/23 Hospital Course Operations None Procedures 2-D Echocardiogram Summary of Care Provided Minutes Spent on Discharge: 31 Hospital Course: This 78-year-old white female was seen in the emergency room at [facility] with complaints of presyncopal symptoms including dizziness and a fall, workup in the emergency room revealed a BUN and creatinine to be elevated and her potassium was low. Urinalysis was unremarkable. It was felt that the patient had acute kidney injury from dehydration due to diuretic usage. Patient was admitted to PCU 106, she was seen in consultation by cardiology, her diuretics were held and she was given fluids and potassium supplementation. Echocardiogram was obtained and showed normal EF. On 07/06/2023, patient was seen and examined: On examination she appeared in good health and spirits, she does not appear to be in any distress. Vital signs as documented. Skin warm and dry and without overt rashes. Neck without JVD, thyroid appears normal, trachea is midline, neck is supple. Lungs clear, normal air movement was noted. Heart exam notable for regular rhythm, normal sounds and absence of murmurs, rubs or gallops. Abdomen unremarkable and without evidence of organomegaly, masses, or abdominal aortic enlargement, bowel sounds are present in all 4 quadrants, no abdominal tenderness was noted. Extremities nonedematous, no cyanosis was noted, no clubbing was noted. Neuro: Cranial nerves II through XII are grossly intact, no focal motor deficits were noted, sensation to light touch and pinprick is intact, motor exam 5/5 throughout. Psych: Patient is alert and oriented x3, she does not appear anxious or depressed, she does not appear agitated. Patient was felt to be stable for discharge home on 07/06/2023, she was placed back on a small dose of diuretics as an outpatient. Weight / BMI Weight Weight: 81.3 kg Body Mass Index (BMI) 30.7 ABG / Lab / Microbiology Data 07/05/23 07:18 07/06/23 06:20 Laboratory: Laboratory Results - last 24 hr 07/05/23 11:26: POC Glucose 195 H 07/05/23 16:56: POC Glucose 141 H 07/05/23 20:59: POC Glucose 215 H 07/06/23 06:20: Sodium 136, Potassium 3.2 L, Chloride 99, Carbon Dioxide 31.0, Anion Gap 6, BUN 27 H, Creatinine 0.82, Estim Creat Clear Calc 56.44, Est GFR (MDRD) Af Amer 86, Est GFR (MDRD) Non-Af 71, BUN/Creatinine Ratio 32.8 H, Glucose 95, Calcium 9.3 Radiography Diagnostic Testing: Radiology Impression Echocardiogram 07/04/23 19:41 Interpretation Summary Normal LV size. Left ventricular systolic function is normal. The estimated ejection fraction is 65 %. Stage 1 diastolic dysfunction. Ordering Physician: Willard Jones Referring Physician: Gael Garza Performed By: Srikanth Stoll RCS D/C Instructions Discharge Diet: No restrictions Weight Bearing Status: Full weight bearing Meaningful Use Info Meaningful Use Diagnoses (Choose all that apply): None applicable Discharge Plan Admission Admit Date/Time: 07/04/23 18:38 Primary Reason for Your Visit: Acute kidney injury Attending Provider: Gael Skinner Primary Care Provider: Gael Garza Consulting Providers: Rolando Gómez; Willard Jones Instructions Additional Instructions / Restrictions: Maintain your present diet at home Discharge Orders/Prescriptions Prescriptions: New potassium chloride 20 mEq tablet,ER particles/crystals 20 meq PO DAILY Qty: 30 0RF Continued omeprazole 20 mg capsule,delayed release(DR/EC) 20 mg PO DAILY simvastatin 20 mg tablet 20 mg PO QHS 90 Days Qty: 90 duloxetine 60 mg capsule,delayed release(DR/EC) 60 mg PO DAILY insulin glargine [Lantus Solostar U-100 Insulin] 100 unit/mL (3 mL) insulin pen 40 unit subcut QAM topiramate 25 mg tablet 25 mg PO BID diphenhydramine HCl [Benadryl] 25 mg capsule 25 mg PO QHS PRN (Reason: Insomnia) albuterol sulfate 90 mcg/actuation HFA aerosol inhaler 2 puff inhalation Q4H PRN (Reason: Sob &/Or Wheezing) levothyroxine 100 mcg tablet 100 mcg PO DAILY ascorbic acid (vitamin C) 500 mg Tablet 500 mg PO DAILY lubiprostone 24 mcg capsule 24 mcg PO BIDCM acetaminophen 500 mg tablet 1,000 mg PO Q4H PRN (Reason: fever or pain) cholecalciferol (vitamin D3) [Vitamin D3] 125 mcg (5,000 unit) tablet 125 mcg PO DAILY triamcinolone acetonide 0.5 % cream 1 applic topical BID PRN (Reason: skin irritation) doxepin 10 mg capsule 10 mg PO DAILY pramipexole 0.75 mg tablet 0.75 mg PO BID meclizine 25 mg tablet 12.5 - 25 mg PO PRN PRN (Reason: dizziness) Eliquis 5 mg tablet 5 mg PO BID Qty: 60 12RF Changed furosemide 40 mg tablet 40 mg PO DAILY Qty: 180 3RF Discontinued potassium citrate 5 mEq (540 mg) tablet extended release 5 meq PO DAILY spironolactone 50 mg tablet 25 mg PO DAILY Qty: 90 3RF No Action (DME) POCKET CHAMBER Spacer See Rx Instructions .ROUTE .MEDSUPPLY Qty: 1 0RF Rx Instructions: As directed Referrals / Follow Up: Rolando Gómez MD [Med Staff - Active Staff] - 07/11/23 10:00 am Gael Garza DO [Primary Care Provider] - 07/12/23 10:00 am Disposition Disposition (needs filled in before D/C Order can be placed): Home, Self Care Charges/Coding Visit Charges Inpatient E&M: 17429 Disch Hosp >30min
[2023-07-06 11:33] LABS: Bedside Glucose 201 mg/dL (74-106)
--- NOTE | 2023-07-06 12:13 | CASEMGMT ---
Patient has order for discharge. RN CM in to discuss needs at discharge. Patient denies needs or help at discharge. Patient had no further questions or concerns.
--- NOTE | 2023-07-06 14:09 | PHA.DC.MR.R ---
Pharmacy [place] Med Reconciliation Pharmacy Service has performed discharge medication reconciliation for this patient. Discharge counselling materials prepared, but patient left prior to counselling opportunity The patient's discharge medication list was reviewed for discrepancies and discrepancies were resolved. Medications at Discharge Home Medications omeprazole 20 mg capsule,delayed release 20 mg PO DAILY ACID REFLUX 06/19/17 simvastatin 20 mg tablet 20 mg PO QHS cholesterol 90 days #90 tabs 09/01/17 albuterol sulfate 90 mcg/actuation aerosol inhaler 2 puff inhalation Q4H PRN Sob &/Or Wheezing 12/04/20 duloxetine 60 mg capsule,delayed release 60 mg PO DAILY mental health 12/04/20 inhalational spacing device (POCKET CHAMBER spacer) #1 ea 01/23/21 diphenhydramine HCl 25 mg capsule (Benadryl) 25 mg PO QHS PRN Insomnia 06/02/21 insulin glargine 100 unit/mL (3 mL) subcutaneous pen (Lantus Solostar U-100 Insulin) 40 unit subcut QAM diabetes 06/02/21 topiramate 25 mg tablet 25 mg PO BID seizures 06/02/21 ascorbic acid (vitamin C) 500 mg tablet 500 mg PO DAILY SUPPLEMENT 08/31/21 levothyroxine 100 mcg tablet 100 mcg PO DAILY THYROID 08/31/21 lubiprostone 24 mcg capsule 24 mcg PO BIDCM bowels 08/31/21 acetaminophen 500 mg tablet 1,000 mg PO Q4H PRN fever or pain 04/12/22 apixaban 5 mg tablet (Eliquis) 5 mg PO BID blood thinner #60 tabs 07/21/22 cholecalciferol (vitamin D3) 125 mcg (5,000 unit) tablet (Vitamin D3) 125 mcg PO DAILY vitamin 07/04/23 doxepin 10 mg capsule 10 mg PO DAILY parkinsons 07/04/23 meclizine 25 mg tablet 12.5 - 25 mg PO PRN PRN dizziness 07/04/23 pramipexole 0.75 mg tablet 0.75 mg PO BID parkinsons 07/04/23 triamcinolone acetonide 0.5 % topical cream 1 applic topical BID PRN skin irritation 07/04/23 furosemide 40 mg tablet 40 mg PO DAILY #180 tabs 07/06/23 potassium chloride 20 mEq tablet,extended release(part/cryst) 20 meq PO DAILY #30 tabs 07/06/23
--- NOTE | 2023-07-06 15:59 | CHAPLAIN ---
Type of Pastoral Visit _x__ Initial Visit ___ Follow-up Visit ___ On-call Visit ___ General Patient Visit ___ Spiritual Assessment ___ Family Conference ___ Bereavement ___ Rapid Response ___ Code Blue ___ Other (describe below) Pastoral Care Referral From _x__ Patient ___ Family ___ Nurse ___ Physician ___ Foundation Drill Operator Helper ___ Pbx Mechanic ___ Other (describe below) Sacrament/Intervention _x__ Active listening ___ Anointing ___ Nondenominational ___ Bereavement ___ Communion ___ Jodi exploration ___ ___ Life review _x__ Prayer ___ Reconciliation ___ Sacrament of Sick ___ Supportive presence ___ Wedding ___ Other (describe below) Pastoral Comments patient was getting ready for discharge but was glad to talk about her situation and her concern for her who had a major surgery recently; pt wants to be home and hopes she can be helpful to him; pt requests a prayer for their needs
== END 2023-07-06 13:59 | disposition home or self-care (01) | DRG 641 ==
LOC: ED 18:21 → PCU 18:57
PROVIDERS: Admitting Provider Hospitalist; Emergency Provider Emergency Medicine; PCP Family Medicine; Visit Provider Internal Medicine
DX: E86.1 Hypovolemia (principal); G20.A1 Parkinson's disease without dyskinesia, without mention of fluctuations; J44.9 Chronic obstructive pulmonary disease, unspecified; G40.909 Epilepsy, unspecified, not intractable, without status epilepticus; E11.65 Type 2 diabetes mellitus with hyperglycemia; Z79.4 Long term (current) use of insulin; E87.1 Hypo-osmolality and hyponatremia; N17.9 Acute kidney failure, unspecified; I10 Essential (primary) hypertension; E03.9 Hypothyroidism, unspecified; I95.1 Orthostatic hypotension; E87.6 Hypokalemia; E78.5 Hyperlipidemia, unspecified; M19.011 Primary osteoarthritis, right shoulder; M54.50 Low back pain, unspecified; W19.XXXA Unspecified fall, initial encounter; Z68.31 Body mass index [BMI] 31.0-31.9, adult; E66.9 Obesity, unspecified; Z79.01 Long term (current) use of anticoagulants; Z86.711 Personal history of pulmonary embolism; T50.2X5A Adverse effect of carbonic-anhydrase inhibitors, benzothiadiazides and other diuretics, initial encounter; Y92.019 Unspecified place in single-family (private) house as the place of occurrence of the external cause; Z86.718 Personal history of other venous thrombosis and embolism; Z79.899 Other long term (current) drug therapy
CPT/HCPCS: 36415; 70450; 72125; 73030; 73502; 80048; 81001; 82962; 83036; 83735; 84443; 85025; 85027; 93005; 93306; 94660; 96360; 96361; 97161; 99221; 99285; J7030; J7120; A4216; G0378

== ENCOUNTER 2023-07-23 12:21 | Emergency (ER) | payer MEDICARE, SELFPAY ==
[2023-07-23 12:22] VITALS: BP 125/58; PULSE 62; RESP 15; TEMP 36.1; O2SAT 97; BMI 34.2
--- NOTE | 2023-07-23 13:11 | EKG12_ITS ---
Test Reason : Blood Pressure : / mmHG Vent. Rate : 058 BPM Atrial Rate : 058 BPM P-R Int : 226 ms QRS Dur : 088 ms QT Int : 400 ms P-R-T Axes : 010 -01 045 degrees QTc Int : 392 ms Sinus bradycardia with 1st degree A-V block Otherwise normal ECG Confirmed by Yusuf Madrigal ([id number]), rewrite editor HILDA EVERETT ([id number]) on 07/24/2023 11:08:54 AM Referred By: SAIGE Confirmed By:Yusuf Madrigal
--- NOTE | 2023-07-23 13:23 | EX.ED.UPPERE ---
HPI History of Present Illness Chief Complaint: Upper Extremity Injury Narrative Narrative: 6-year-old female presenting with pain and shoulder pain. This started prior to arrival and she states it radiated down her arm and then started radiating up into her right mandible. Patient states it was higher pain level previously admitted may be an 8/10 but now it is 5/10. She took 2 ibuprofen prior to coming and states this is helping. Patient reports she has had this in the past and the right shoulder. She does admit also that she had some left substernal chest pain which extended into the left ribs last night last about 45 minutes. She states she felt lightheaded with the episode. She was playing [employer] with her and she reports that he kept waking her up when it was her turn because she kept falling asleep. Patient also reports that she has had leg swelling for the last 4 months to 6 weeks which is already been evaluated by Dr. Garber 40. She is no longer on Lasix but states she is on spironolactone. This was changed because the patient's potassium Going well and her renal function was off and last time she was admitted. Patient also states that she had a Doppler of her heart recently by Dr. Gómez but was not sure why he did this as she did not have any complaint of chest pain. Patient does not have this left-sided chest pain today. She states she has not had any fevers, chills, cough. Denies any trauma. She does admit to a history of a hiatal hernia and states that her stomach is in my chest. Patient is on Eliquis and has not had any black or bloody stools. [facility] Medical History Asthma COPD (chronic obstructive pulmonary disease) Depression Diabetes mellitus type II, controlled Edema Esophageal spasm Essential hypertension GERD (gastroesophageal reflux disease) Hiatal hernia History of basal cell carcinoma (BCC) History of DVT (deep vein thrombosis) History of pulmonary embolism Hyperlipidemia Hypothyroidism IBS (irritable bowel syndrome) Kidney disease Left-sided chest wall pain Lumbar back pain Lung disease Obesity (BMI 30.0-34.9) JHONY (obstructive sleep apnea) Osteoarthritis Parkinsons disease Premature atrial contractions Seizure disorder Sleep apnea Symptomatic bradycardia Venous insufficiency Home Medications omeprazole 20 mg capsule,delayed release 20 mg PO DAILY ACID REFLUX 06/19/17 [History Last Taken 07/04/23] simvastatin 20 mg tablet 20 mg PO QHS cholesterol 90 days #90 tabs 09/01/17 [History Last Taken 07/03/23] duloxetine 60 mg capsule,delayed release 60 mg PO DAILY mental health 12/04/20 [History Last Taken 07/04/23] inhalational spacing device (POCKET CHAMBER spacer) #1 ea 01/23/21 [Rx Last Taken Unknown] insulin glargine 100 unit/mL (3 mL) subcutaneous pen (Lantus Solostar U-100 Insulin) 40 unit subcut QAM diabetes 06/02/21 [History Last Taken 07/04/23] levothyroxine 100 mcg tablet 100 mcg PO DAILY THYROID 08/31/21 [History Last Taken 07/04/23] apixaban 5 mg tablet (Eliquis) 5 mg PO BID blood thinner #60 tabs 07/21/22 [Rx Last Taken 07/04/23] pramipexole 0.75 mg tablet 0.75 mg PO BID parkinsons 07/04/23 [History Last Taken 07/04/23] d-mannose 500 mg capsule 500 mg PO DAILY 07/11/23 [History Last Taken Unknown] spironolactone 25 mg tablet 25 mg PO DAILY #90 tabs 07/11/23 [Rx Last Taken Unknown] Allergy/AdvReac Type Severity Reaction Status Date / Time nitrofurantoin Allergy Hives Verified 07/11/23 10:11 macrocrystalline [From Macrodantin] tree and shrub pollen Allergy Hives Verified 07/11/23 10:11 rosuvastatin [From Crestor] AdvReac Severe Muscle Verified 07/11/23 10:11 weakness colesevelam [From WelChol] AdvReac Intermediate nausea Verified 07/11/23 10:11 nitrofurantoin AdvReac Intermediate Hives Verified 07/11/23 10:11 [From Furadantin] metformin AdvReac Unknown Gi side Verified 07/11/23 10:11 effects Family History Father CAD (coronary artery disease) Diabetes Myocardial infarction Alzheimers disease Hypertension Parkinson's disease Cancer melanoma History of blood clots Mother Diabetes AAA (abdominal aortic aneurysm) Bleeding disorder Colon cancer Thyroid disorder Brother Multiple sclerosis Skin cancer Surgical History History of cholecystectomy History of lumbar fusion (~2012) History of Belkys fundoplication History of right hip replacement (~07/08/15) History of tonsillectomy and adenoidectomy Hx of hernia repair Hx of lumbar discectomy Social History household members: spouse and none Smoking Status: Never smoker alcohol intake: never substance use type: does not use diet: diabetic and gluten free caffeine: No what type of physical activity do you participate in: none seatbelt use: always do you feel safe at home: Yes ROS ROS ED Constitutional Constitutional ED: Denies chills, fever(s) or sweats Eyes Eyes: Denies blurry vision or change in vision ENT ENT ED: Denies ear pain or sore throat Cardiovascular Cardiovascular: Reports chest pain; Denies palpitations or racing heartbeat Respiratory/Chest Respiratory/Chest: Denies cough, dyspnea or sputum Gastrointestinal Gastrointestinal: Denies abdominal pain, constipation, diarrhea, nausea or vomiting Genitourinary Genitourinary ED: Denies dysuria, hematuria or urinary frequency Musculoskeletal Musculoskeletal: Reports other Details: Right shoulder pain ; Denies arthralgias, myalgias or neck pain Integumentary Denies abscess, Abrasions or rash Neurologic Neurologic: Denies headache(s), paresthesias or weakness Psychiatric Psychiatric: Denies anxiety, depression, suicidal ideation or suicidal thoughts Endocrine Endocrinology: Denies polydipsia or polyuria EXAM Physical Exam Const Vital Signs: 07/23/23 12:22 Temperature 97.0 F L Temperature Source Temporal Pulse Rate 62 Respiratory Rate 15 Blood Pressure 125/58 H Blood Pressure Mean 80 Pulse Ox 97 Oxygen Delivery Method Room Air Positive well nourished General Appearance ED: NAD HEENT Reports moist mucous membranes Eyes PERRL Chest Wall inspection of chest normal Resp normal respiratory effort and clear to auscultation bilaterally Auscultation: Negative for rales, rhonchi or wheezes Cardio regular rate and regular rhythm GI non-tender Extremity Extremity Narrative: Mild tenderness to palpation over the right deltoid. Patient maintains full range of motion in flexion, extension, abduction, abduction. Patient strength 5/5 and symmetric with the left upper extremity. No rash, ecchymosis. Neuro oriented x3, CN's II-XII intact bilaterally, moves all extremities, no focal motor deficits and no sensory deficits noted Sensorium / Orientation: alert Psych mental status grossly normal Skin General Skin Exam: Negative for petechiae MDM MDM MDM Narrative Medical decision making narrative: Patient initially presented with right shoulder pain which started out of nowhere today. She states she has had this in the past and has never been diagnosed with anything. She denies any trauma in the right shoulder. She is off her imaging of the right shoulder to assess this but she does not want it. She did report that she had some left-sided lower rib pain last evening for 45 minutes as well as some lightheadedness and she does want this evaluated. Differential includes ACS, pneumonia, hiatal hernia, GERD, dehydration, anemia, electrolyte normalities, upper GI bleed. CBC will be obtained to assess for blood cell count, hemoglobin, platelets. BMP to assess renal function, electrolytes, glucose. High-sensitivity troponin EKG to assess for ischemia/dysrhythmia. Chest x-ray to rule out pneumonia. Patient declines analgesia. Low suspicion for PE given she is on Eliquis. CBC, BMP unremarkable. High-sensitivity troponin is 7. EKG on my interpretation shows a sinus rhythm at 58 bpm with first-degree AV block. Chest x-ray my interpretation shows hiatal hernia without other acute process. Patient on reevaluation states she feels better but she did take ibuprofen prior to arrival. Did remind her that ibuprofen is something she should not take when she is on Eliquis as this can lead to ulcers and GI bleeding. As far as her shoulder she did not have any significant pain examining her right shoulder. I recommend she use ice, heat, Tylenol. Patient counseled that her cardiac workup was negative and return precautions were discussed. She feels comfortable going home. Impression: 1. Right shoulder pain 2. Chest pain?noncardiac 3. History of hiatal hernia Lab Data Attestation: I reviewed the patient's lab results. Discharge Plan Triage Chief Complaint: Upper Extremity Injury ED Provider: Thomas Alegre Dx/Rx/DC Orders Instructions: ED Chest Pain, Noncardiac, ED Shoulder Sprain, ED Hiatal Hernia Prescriptions: No Action omeprazole 20 mg capsule,delayed release(DR/EC) 20 mg PO DAILY simvastatin 20 mg tablet 20 mg PO QHS 90 Days Qty: 90 duloxetine 60 mg capsule,delayed release(DR/EC) 60 mg PO DAILY insulin glargine [Lantus Solostar U-100 Insulin] 100 unit/mL (3 mL) insulin pen 40 unit subcut QAM d-mannose 500 mg capsule 500 mg PO DAILY spironolactone 25 mg tablet 25 mg PO DAILY Qty: 90 3RF (DME) POCKET CHAMBER Spacer See Rx Instructions .ROUTE .MEDSUPPLY Qty: 1 0RF Rx Instructions: As directed levothyroxine 100 mcg tablet 100 mcg PO DAILY pramipexole 0.75 mg tablet 0.75 mg PO BID Eliquis 5 mg tablet 5 mg PO BID Qty: 60 12RF Primary Care Provider: Gael Garza Referrals: Gael Garza DO [Primary Care Provider] - Disposition Disposition: Home, Self Care
--- NOTE | 2023-07-23 13:30 | RAD_ITS ---
STUDY: X-RAY CHEST REASON FOR EXAM: Female, 78 years old. Chest pain TECHNIQUE: Single AP portable view of the chest. COMPARISON: 02/15/2023 FINDINGS: EKG leads overlie the chest The lungs are clear and expanded. There is no demonstrated pleural abnormality. Normal size heart. Normal mediastinum and roderick. Normal visualized pulmonary arteries. There is atherosclerotic calcification of the aortic arch with tortuosity. There are diffuse degenerative changes of the visualized thoracic spine. There is degenerative osteoarthritis of the bilateral shoulders. There is a stable prominent retrocardiac hiatal hernia RAD/Chest 1 View (Portable) IMPRESSION: No acute pulmonary process Hiatal hernia Electronically Signed: Rian Downey MD at 13:50 EDT ,
[2023-07-23 13:36] LABS: Absolute Lymphocyte Count 1.38 X10^3/uL (0.83-4.51); Absolute Neutrophil Count 4.5 X10^3/uL (2.0-7.7); Basophil# 0.05 X10^3/uL; Basophil% 0.7 % (0-1); Eosinophil# 0.28 X10^3/uL; Eosinophils% 4.1 % (0-5); Hemoglobin 11.3 g/dL (12.0-15.0); Lymphocyte # 1.38 X10^3/ul (0.83-4.51); Lymphocyte % 20.2 % (19-41); Mean Corp Hgb Conc 31.4 g/dL (32-36); Mean Corpuscular Hgb 29.7 pg (27.0-32.0); Mean Corpuscular Volume 94.5 fL (81-99); Mean Platelet Vol. 10.4 fl (6.2-12.0); Monocyte# 0.59 X10^3/uL; Monocyte% 8.6 % (0-10); NRBC Flagged by Analyzer 0 % (0-5); Neutrophil # 4.52 X10^3/uL (2.7-7.7); Neutrophil % 66.1 % (47-70); Platelet Count 232 K/mm3 (150-450); RBC Distribution Width SD 45.4 fl (35.1-43.9); Red Blood Count 3.81 M/mm3 (4.2-5.4); White Blood Count 6.8 K/mm3 (4.4-11.0)
[2023-07-23 13:52] LABS: Anion Gap 3 (5-15); BUN 24 mg/dL (7-18); BUN/Creat Ratio 31.2 RATIO (10-20); Calcium,Total 9.9 mg/dL (8.5-10.1); Chloride 109 mmol/L (98-107); Creatinine, Serum 0.77 mg/dL (0.55-1.02); EST Glomerular Filtration Rate 77 mL/min (>60); Est Glom Filt Rate - Afr Amer 93 mL/min (>60); Estimated Creatinine Clearance 61.11 ml/min; Glucose 140 mg/dL (74-106); Potassium 4.2 mmol/L (3.5-5.1); Sodium Level 140 mmol/L (136-145); Troponin-I HS 7 pg/mL (3.0-54.0)
[2023-07-23 14:24] VITALS: BP 134/67; PULSE 61; RESP 13; O2SAT 99
[2023-07-23 16:00] VITALS: BP 127/79; PULSE 60; RESP 17; TEMP 36.4; O2SAT 98
== END 2023-07-23 16:05 | disposition home or self-care (01) ==
PROVIDERS: Emergency Provider Student in an Organized Health Care Education/Training Program; PCP Family Medicine; Visit Provider Student in an Organized Health Care Education/Training Program
DX: M25.511 Pain in right shoulder (principal); G20.A1 Parkinson's disease without dyskinesia, without mention of fluctuations; J44.9 Chronic obstructive pulmonary disease, unspecified; E11.9 Type 2 diabetes mellitus without complications; Z79.4 Long term (current) use of insulin; K44.9 Diaphragmatic hernia without obstruction or gangrene; R07.89 Other chest pain; Z79.01 Long term (current) use of anticoagulants; I10 Essential (primary) hypertension; E78.5 Hyperlipidemia, unspecified; Z86.718 Personal history of other venous thrombosis and embolism; K21.9 Gastro-esophageal reflux disease without esophagitis; F32.A Depression, unspecified; E03.9 Hypothyroidism, unspecified; Z90.49 Acquired absence of other specified parts of digestive tract; Z96.641 Presence of right artificial hip joint
CPT/HCPCS: 71045; 80048; 84484; 85025; 93005; 99284

== ENCOUNTER 2023-08-16 02:03 | Emergency (ER) | payer MEDICARE, SELFPAY ==
[2023-08-16 02:05] VITALS: BP 127/56; PULSE 85; RESP 16; TEMP 36.3; O2SAT 97; BMI 33.2
--- NOTE | 2023-08-16 02:12 | RAD_ITS ---
INDICATION: edema EXAMINATION/TECHNIQUE: X-RAY - XR Chest 1 View COMPARISON: None. Findings: Single frontal view of the chest. Low lung volumes. LUNG PARENCHYMA: No acute focal airspace disease or mass lesion. PLEURA: No pleural effusion. No pneumothorax. HEART/GREAT VESSELS: Cardiomediastinal silhouette is borderline enlarged. Large gas containing hiatal hernia. BONES: Osseous structures are unremarkable for age. RAD/Chest 1 View (Portable) IMPRESSION: Given low lung volumes, chest with no acute disease. Large gas containing hiatal hernia. Electronically Signed: Marcus Moreira MD at 3:36 EDT ,
--- NOTE | 2023-08-16 02:12 | EKG12_ITS ---
Test Reason : EDEMA Blood Pressure : / mmHG Vent. Rate : 078 BPM Atrial Rate : 078 BPM P-R Int : 218 ms QRS Dur : 090 ms QT Int : 384 ms P-R-T Axes : 010 -02 063 degrees QTc Int : 437 ms Sinus rhythm with 1st degree A-V block Otherwise normal ECG Confirmed by JOE VILLA, SUNITHA ([id number]), news editor HILDA EVERETT ([id number]) on 08/17/2023 11:31:24 AM Referred By: ARMAND Confirmed By:SUNITHA DIAZ MD
--- NOTE | 2023-08-16 02:14 | EDS_ITS ---
HPI History of Present Illness Chief Complaint: Edema Detail of Chief Complaint: Bilateral lower extremity swelling. Informant: patient Onset/Context/Timing Onset: Weeks Context: Gradual Onset Timing: Intermittent Current Severity: Mild Maximum Severity: Mild Narrative Narrative: 78-year-old female history of A-fib, COPD, diabetes, prior DVT and PE on Eliquis. History of Parkinson's and venous insufficiency. Since her last week she has had leg swelling. It was actually worse a week ago it is getting better but is not her baseline and is worse than her baseline. Denies nausea, vomiting, diarrhea or fever. Says she is chronically short of breath is no worse. She is not on oxygen at home. June she had an echocardiogram showed an EF of 65%. Prior similar symptoms: Yes Recent Illness/[facility]ospital[facility]: [facility] Medical History Asthma COPD (chronic obstructive pulmonary disease) Depression Diabetes mellitus type II, controlled Edema Esophageal spasm Essential hypertension GERD (gastroesophageal reflux disease) Hiatal hernia History of basal cell carcinoma (BCC) History of DVT (deep vein thrombosis) History of pulmonary embolism Hyperlipidemia Hypothyroidism IBS (irritable bowel syndrome) Kidney disease Left-sided chest wall pain Lumbar back pain Lung disease Obesity (BMI 30.0-34.9) JHONY (obstructive sleep apnea) Osteoarthritis Parkinsons disease Premature atrial contractions Seizure disorder Sleep apnea Symptomatic bradycardia Venous insufficiency Home Medications omeprazole 20 mg capsule,delayed release 20 mg PO DAILY ACID REFLUX 06/19/17 [History Last Taken 07/04/23] simvastatin 20 mg tablet 20 mg PO QHS cholesterol 90 days #90 tabs 09/01/17 [History Last Taken 07/03/23] duloxetine 60 mg capsule,delayed release 60 mg PO DAILY mental health 12/04/20 [History Last Taken 07/04/23] inhalational spacing device (POCKET CHAMBER spacer) #1 ea 01/23/21 [Rx Last Taken Unknown] insulin glargine 100 unit/mL (3 mL) subcutaneous pen (Lantus Solostar U-100 Insulin) 40 unit subcut QAM diabetes 06/02/21 [History Last Taken 07/04/23] levothyroxine 100 mcg tablet 100 mcg PO DAILY THYROID 08/31/21 [History Last Taken 07/04/23] pramipexole 0.75 mg tablet 0.75 mg PO BID parkinsons 07/04/23 [History Last Taken 07/04/23] d-mannose 500 mg capsule 500 mg PO DAILY 07/11/23 [History Last Taken Unknown] spironolactone 25 mg tablet 25 mg PO DAILY #90 tabs 07/11/23 [Rx Last Taken Unknown] apixaban 5 mg tablet (Eliquis) 5 mg PO BID blood thinner #60 tabs 08/03/23 [Rx Last Taken Unknown] albuterol sulfate 90 mcg/actuation aerosol inhaler 2 puff inhalation Q6H PRN shortness of breath or wheezing 08/16/23 [History Last Taken Unknown] furosemide 40 mg tablet 40 mg PO BID 08/16/23 [History Last Taken Unknown] potassium chloride 20 mEq tablet,extended release(part/cryst) 20 meq PO DAILY 08/16/23 [History Last Taken Unknown] topiramate 25 mg tablet 25 mg PO BID 08/16/23 [History Last Taken Unknown] Allergy/AdvReac Type Severity Reaction Status Date / Time nitrofurantoin Allergy Hives Verified 08/16/23 02:05 macrocrystalline [From Macrodantin] tree and shrub pollen Allergy Hives Verified 08/16/23 02:05 rosuvastatin [From Crestor] AdvReac Severe Muscle Verified 08/16/23 02:05 weakness colesevelam [From WelChol] AdvReac Intermediate nausea Verified 08/16/23 02:05 nitrofurantoin AdvReac Intermediate Hives Verified 08/16/23 02:05 [From Furadantin] metformin AdvReac Unknown Gi side Verified 08/16/23 02:05 effects Family History Father CAD (coronary artery disease) Diabetes Myocardial infarction Alzheimers disease Hypertension Parkinson's disease Cancer melanoma History of blood clots Mother Diabetes AAA (abdominal aortic aneurysm) Bleeding disorder Colon cancer Thyroid disorder Brother Multiple sclerosis Skin cancer Surgical History History of cholecystectomy History of lumbar fusion (~2012) History of Belkys fundoplication History of right hip replacement (~07/08/15) History of tonsillectomy and adenoidectomy Hx of hernia repair Hx of lumbar discectomy Social History household members: spouse and none Smoking Status: Never smoker alcohol intake: never substance use type: does not use diet: diabetic and gluten free caffeine: No what type of physical activity do you participate in: none seatbelt use: always do you feel safe at home: Yes ROS ROS ED ROS Narrative Denies recent illness. Acute on chronic leg swelling. Review of Systems ROS Unobtainable: Denies due to encephalopathy Constitutional Constitutional ED: Denies chills or fever(s) Eyes Eyes: Denies blurry vision ENT ENT ED: Denies ear pain Cardiovascular Cardiovascular: Denies chest pain or palpitations Respiratory/Chest Respiratory/Chest: Reports dyspnea and other Details: Chronic shortness of arlin ath. ; Denies cough Gastrointestinal Gastrointestinal: Denies abdominal pain, diarrhea, melena, nausea or vomiting Genitourinary Genitourinary ED: Denies dysuria or hematuria Musculoskeletal Musculoskeletal: Denies arthralgias Integumentary Denies abscess Neurologic Neurologic: Denies headache(s) Psychiatric Psychiatric: Denies anxiety or depression Endocrine Endocrinology: Denies cold intolerance Hematologic/Lymphatic Hematologic/Lymphatic: Reports easy bleeding, easy bruising and other Details: On the blood thinner Eliquis. Allergic/Immunologic Allergic/Immunologic ED: Denies mouth swelling, tongue swelling or urticaria EXAM Physical Exam Narrative Exam Narrative: Well-appearing 78-year-old female. Vital signs stable afebrile. Pulse ox 97% on room air no hypoxia. No respiratory distress. HEENT exam mild dry mucous membranes. Neck nontender no JVD. Lungs clear to auscultation bilaterally. Heart rate about 85. No murmur appreciated. Chest wall and ribs nontender. Abdomen soft nontender. Moving all 4 extremities. Both lower extremities have 1+ pitting edema to the knees bilaterally. She has normal range of motion and strength of both upper and lower extremities. Neurologically she is awake and alert with no focal motor deficits. Answering questions and following commands. Const Vital Signs: 08/16/23 02:05 08/16/23 02:07 Temperature 97.4 F L Temperature Source Temporal Pulse Rate 85 Respiratory Rate 16 Respiratory Effort Normal Blood Pressure 127/56 H Blood Pressure Mean 79 Pulse Ox 97 Positive well nourished and well developed; Negative for cachectic, contractures or unkempt General Appearance ED: well developed and NAD; Negative for unkempt, cachectic, contractures, cyanotic, diaphoretic or pallor Nutritional Appearance: Negative for cachectic HEENT Reports dry mucous membranes Negative for trauma or tenderness Mouth ED: Yes dry mucous membranes Mouth: dry mucous membranes Eyes PERRL and EOMs intact bilaterally General Eye ED: Negative for pale conjunctiva or scleral icterus Neck no lymphadenopathy, supple and no JVD General: Negative for tenderness Lymph Lymphatic: Negative for other Chest Wall inspection of chest normal and palpation of chest normal Resp normal respiratory effort and clear to auscultation bilaterally Auscultation: Negative for rales, rhonchi or wheezes Cardio regular rate, regular rhythm, S1 normal heart sound, S2 normal heart sound and no murmurs GI normal to inspection, nondistended, normoactive bowel sounds, non-tender, non- distended and no masses Inspection: Negative for abdominal distention Auscultation: normoactive bowel sounds Palpation: soft; Negative for tender, guarding or rebound tenderness present Back/Spine no CVA tenderness General Back: Negative for CVA tenderness Cervical Spine: Negative for cervical spine tenderness Thoracic Spine / Upper Back: Negative for thoracic spinal tenderness Lumbar Spine / Lower Back: Negative for lumbar spinal tenderness Extremity Negative for normal to inspection Extremity Narrative: Bilateral lower extremity 1+ edema. General Extremety ED: Yes edema; Negative for tenderness General Extremity: edema Neuro oriented x3 and CN's II-XII intact bilaterally Sensorium / Orientation: alert; Negative for orientation impaired, lethargic or stuporous Motor Exam: strength 5/5 throughout Psych mental status grossly normal Appearance: Negative for unkempt Attitude: No agitated Mood & Affect: Negative for tearful Skin no rashes or lesions noted and no wounds General Skin Exam: Negative for jaundice or pallor Lesions: No lesion noted Rashes: No rashes noted Trauma: Negative for abrasion Wounds: Negative for wounds noted MDM MDM MDM Narrative Medical decision making narrative: 78-year-old female history of chronic lower extremity edema. Screening labs will be obtained. Exam is benign. Due to her leg discomfort consider such things as dehydration or electrolyte abnormalities. She has had a history of hypokalemia in the past. She is on Eliquis I do not think this is secondary to a DVT. Repeat exam at 2:50 AM patient doing well. She is sitting upright in bed. Drinking glass of water. She and I went over her labs. There is reason at this time no admitted to the hospital. She will follow-up with her vice principal office to see if they want her to continue taking both the furosemide and her spironolactone if she should only be on one of them. 1 was started by her vice principal. Her primary care physician put her on the furosemide. Patient is comfortable to plan being discharged home. We are going to ambulate her prior to discharge History & Record Review Discussion w/independent historian: Patient Additional record(s) reviewed:: Prior inpatient record, Prior outpatient record, Prior ED visit and Prior labs Lab Data Attestation: I reviewed the patient's lab results. Lab results narrative: CBC shows no acute abnormality. Consistent with prior CBCs. Chemistries show sodium 135. Gap 6. BUN of 43 and creatinine 1.26 consistent with prior chemistry panel. Her glucose is 372. Potassium is normal at 4.2. Labs: Laboratory Results - last 24 hr 08/16/23 02:15 WBC 10.9 RBC 4.16 L Hgb 12.2 Hct 37.9 MCV 91.1 MCH 29.3 MCHC 32.2 RDW Std Deviation 43.2 RDW Coeff of Basilio 13.1 Plt Count 361 MPV 10.7 Immature Gran % (Auto) 0.600 Neut % (Auto) 70.0 Lymph % (Auto) 14.9 L [place] % (Auto) 10.5 H Eos % (Auto) 3.0 Baso % (Auto) 1.0 Absolute Neuts (auto) 7.6 Absolute Lymphs (auto) 1.62 Nucleated RBC % 0 Sodium 135 L Potassium 4.2 Chloride 99 Carbon Dioxide 30.0 Anion Gap 6 BUN 43 H Creatinine 1.26 H Estim Creat Clear Calc 38.17 Est GFR (MDRD) Af Amer 53 L Est GFR (MDRD) Non-Af 43 L BUN/Creatinine Ratio 34.1 H Glucose 372 H Calcium 9.6 Radiography Chest X-Ray - ED: 1 View, Read by ED Physician, Unchanged, Normal, Heart, Lungs, Mediastinum, Bony Structures, No Acute Disease and Chronic Changes Diagnostic Testing: Chest x-ray, portable, single view interpreted by myself shows no acute abnormality. Normal cardiac silhouette. Normal lung currie. No signs of pulmonary edema. No effusions. No infiltrates. When compared to a prior chest x-ray from about 3+ weeks ago shows no significant change. Rhythm Strip Rhythm Strip: Sinus Rhythm Rate: 78 Ectopy: None EKG Initial EKG: Attestation: I personally reviewed and interpreted this EKG as follows: Interpretation: Sinus Rhythm and No Acute Injury Pattern Comments: Normal sinus rhythm rate of 78 no acute signs of PR or ischemia. First-degree AV block with a OH interval of 218. Discharge Plan Triage Chief Complaint: Edema ED Provider: David Emerson Dx/Rx/DC Orders Clinical Impression: Hyperglycemia due to diabetes mellitus, Peripheral edema, History of atrial fibrillation, History of Parkinson's disease, Dehydration Instructions: ED Peripheral Edema, Bilateral Prescriptions: No Action omeprazole 20 mg capsule,delayed release(DR/EC) 20 mg PO DAILY simvastatin 20 mg tablet 20 mg PO QHS 90 Days Qty: 90 duloxetine 60 mg capsule,delayed release(DR/EC) 60 mg PO DAILY insulin glargine [Lantus Solostar U-100 Insulin] 100 unit/mL (3 mL) insulin pen 40 unit subcut QAM d-mannose 500 mg capsule 500 mg PO DAILY spironolactone 25 mg tablet 25 mg PO DAILY Qty: 90 3RF (DME) POCKET CHAMBER Spacer See Rx Instructions .ROUTE .MEDSUPPLY Qty: 1 0RF Rx Instructions: As directed levothyroxine 100 mcg tablet 100 mcg PO DAILY pramipexole 0.75 mg tablet 0.75 mg PO BID furosemide 40 mg tablet 40 mg PO BID topiramate 25 mg tablet 25 mg PO BID potassium chloride 20 mEq tablet,ER particles/crystals 20 meq PO DAILY albuterol sulfate 90 mcg/actuation HFA aerosol inhaler 2 puff inhalation Q6H PRN (Reason: shortness of breath or wheezing) Eliquis 5 mg tablet 5 mg PO BID Qty: 60 12RF Primary Care Provider: Gael Garza Referrals: Rolando Gómez MD [Med Staff - Active Staff] - As soon as possible Gael Garza DO [Primary Care Provider] - As Needed Activity Restrictions/Additional Instructions: Your labs, EKG and chest x-ray look good. You are mildly dehydrated. Please call and follow-up with Dr. Gómez's office to make sure they want you on both the furosemide and the spironolactone. Disposition Disposition: Home, Self Care
[2023-08-16 02:23] LABS: Absolute Lymphocyte Count 1.62 X10^3/uL (0.83-4.51); Absolute Neutrophil Count 7.6 X10^3/uL (2.0-7.7); Basophil# 0.11 X10^3/uL; Eosinophil# 0.33 X10^3/uL; Hematocrit 37.9 % (37-47); Hemoglobin 12.2 g/dL (12.0-15.0); Lymphocyte # 1.62 X10^3/ul (0.83-4.51); Lymphocyte % 14.9 % (19-41); Mean Corp Hgb Conc 32.2 g/dL (32-36); Mean Corpuscular Hgb 29.3 pg (27.0-32.0); Mean Corpuscular Volume 91.1 fL (81-99); Mean Platelet Vol. 10.7 fl (6.2-12.0); Monocyte# 1.14 X10^3/uL; Monocyte% 10.5 % (0-10); NRBC Flagged by Analyzer 0 % (0-5); Neutrophil # 7.61 X10^3/uL (2.7-7.7); Platelet Count 361 K/mm3 (150-450); RBC Distribution Width CV 13.1 % (11.6-14.6); RBC Distribution Width SD 43.2 fl (35.1-43.9); Red Blood Count 4.16 M/mm3 (4.2-5.4); White Blood Count 10.9 K/mm3 (4.4-11.0)
[2023-08-16 02:36] LABS: Anion Gap 6 (5-15); BUN 43 mg/dL (7-18); BUN/Creat Ratio 34.1 RATIO (10-20); Calcium,Total 9.6 mg/dL (8.5-10.1); Chloride 99 mmol/L (98-107); Creatinine, Serum 1.26 mg/dL (0.55-1.02); EST Glomerular Filtration Rate 43 mL/min (>60); Est Glom Filt Rate - Afr Amer 53 mL/min (>60); Estimated Creatinine Clearance 38.17 ml/min; Glucose 372 mg/dL (74-106); Potassium 4.2 mmol/L (3.5-5.1); Sodium Level 135 mmol/L (136-145)
[2023-08-16 03:19] VITALS: BP 124/83; PULSE 76; RESP 16; TEMP 36.6; O2SAT 97
== END 2023-08-16 04:00 | disposition home or self-care (01) ==
PROVIDERS: Emergency Provider Emergency Medicine; PCP Family Medicine; Visit Provider Emergency Medicine
DX: E11.65 Type 2 diabetes mellitus with hyperglycemia (principal); G20.C Parkinsonism, unspecified; J44.9 Chronic obstructive pulmonary disease, unspecified; I48.91 Unspecified atrial fibrillation; E11.59 Type 2 diabetes mellitus with other circulatory complications; I87.2 Venous insufficiency (chronic) (peripheral); R60.0 Localized edema; E86.0 Dehydration; R06.00 Dyspnea, unspecified; E03.9 Hypothyroidism, unspecified; Z86.718 Personal history of other venous thrombosis and embolism; Z86.711 Personal history of pulmonary embolism; Z79.01 Long term (current) use of anticoagulants
CPT/HCPCS: 71045; 80048; 85025; 93005; 99283; A4216

== ENCOUNTER → 2023-08-28 | Outpatient (CLI) | payer MEDICARE, SELFPAY ==
--- NOTE | 2023-08-28 10:54 | VDLE_ITS ---
Reason For Study: Bilateral leg edema, Varicose veins RIGHT LEFT CFV is compressible, spontaneous, phasic, CFV is compressible, spontaneous, phasic, competent and demonstrates normal competent, and demonstrates normal augmentation. augmentation. FV is compressible, spontaneous, phasic, FV is compressible, spontaneous, phasic, competent and demonstrates normal competent and demonstrates normal augmentation. augmentation. POP V is compressible, spontaneous, phasic, POP V is compressible, spontaneous, phasic, competent and demonstrates normal competent and demonstrates normal augmentation. augmentation. T/P Trunk is compressible. T/P Trunk is compressible. PTV is compressible. PTV is compressible. RT PerV is compressible. LT PerV is compressible. SFJ is competent and measures 0.85 x 0.95 cm. SFJ is competent and measures 0.92 x 0.95 cm. GSV is absent s/p ablation. GSV above knee is absent s/p ablation. SSV proximal calf is competent and measures GSV at knee measures 0.16 x 0.16 cm. 0.28 x 0.28 cm. GSV below knee is competent. Procedure SSV proximal calf is competent and measures This is a venous duplex using B-mode, color 0.09 x 0.11 cm. flow and spectral Doppler. Exam performed in department. Patient was scanned in reverse Trendelenburg position during reflux assessment. A preliminary report was called and/or faxed to Dr. Cintron. VL/Venous Duplex US - Raymon Extrem Interpretation Summary Bilateral no DVT or SVT. Bilateral GSV ablated. Ordering Physician: Hnug Cintron Referring Physician: Gael Garza Performed By: Mely Buck RVT
== END | disposition home or self-care (01) ==
LOC: CVS 10:53
PROVIDERS: PCP Family Medicine; Referring Provider Surgery Vascular Surgery; Visit Provider Surgery Vascular Surgery
DX: I83.893 Varicose veins of bilateral lower extremities with other complications (principal); G20.A1 Parkinson's disease without dyskinesia, without mention of fluctuations; E11.9 Type 2 diabetes mellitus without complications; M79.89 Other specified soft tissue disorders; M79.606 Pain in leg, unspecified; R60.9 Edema, unspecified; K31.84 Gastroparesis; K44.9 Diaphragmatic hernia without obstruction or gangrene; E78.00 Pure hypercholesterolemia, unspecified; I10 Essential (primary) hypertension
CPT/HCPCS: 93970

== ENCOUNTER → 2023-09-04 | Outpatient (CLI) | payer MEDICARE, SELFPAY ==
[2023-09-04 18:25] LABS: Anion Gap 2 (5-15); BUN 19 mg/dL (7-18); BUN/Creat Ratio 23.8 RATIO (10-20); Calcium,Total 9.1 mg/dL (8.5-10.1); Chloride 106 mmol/L (98-107); EST Glomerular Filtration Rate 73 mL/min (>60); Est Glom Filt Rate - Afr Amer 89 mL/min (>60); Glucose 143 mg/dL (74-106); Sodium Level 139 mmol/L (136-145)
== END | disposition home or self-care (01) ==
LOC: LAB 17:02
PROVIDERS: PCP Family Medicine; Referring Provider Family Medicine; Visit Provider Family Medicine
DX: N17.9 Acute kidney failure, unspecified (principal)
CPT/HCPCS: 36415; 80048

== ENCOUNTER → 2023-09-22 | Outpatient (CLI) | payer MEDICARE, SELFPAY ==
--- NOTE | 2023-09-22 10:15 | RAD_ITS ---
STUDY: X-RAY - RIGHT RADIUS AND ULNA REASON FOR EXAM: Female, 78 years old. Forearm injury TECHNIQUE: 2 view(s) of the forearm. COMPARISON: None. FINDINGS: Soft tissue swelling. No fracture is seen. Normal visualized radius. Normal visualized ulna. RAD/Forearm 2 Views IMPRESSION: Soft tissue swelling. Electronically Signed: Zion Chen MD at 10:28 EDT ,
== END | disposition home or self-care (01) ==
LOC: MTRAD 10:14
PROVIDERS: PCP Family Medicine; Referring Provider Physician Assistant Surgical; Visit Provider Physician Assistant Surgical
DX: S59.911A Unspecified injury of right forearm, initial encounter (principal)
CPT/HCPCS: 73090

== ENCOUNTER → 2023-09-28 | Outpatient (CLI) | payer MEDICARE, SELFPAY ==
[2023-09-28 14:43] LABS: Absolute Lymphocyte Count 1.47 X10^3/uL (0.83-4.51); Absolute Neutrophil Count 4.6 X10^3/uL (2.0-7.7); Basophil# 0.07 X10^3/uL; Eosinophils% 2.8 % (0-5); Hematocrit 37.3 % (37-47); Hemoglobin 11.6 g/dL (12.0-15.0); Lymphocyte # 1.47 X10^3/ul (0.83-4.51); Lymphocyte % 20.9 % (19-41); Mean Corp Hgb Conc 31.1 g/dL (32-36); Mean Corpuscular Hgb 28.6 pg (27.0-32.0); Mean Corpuscular Volume 92.1 fL (81-99); Mean Platelet Vol. 10.7 fl (6.2-12.0); Monocyte# 0.68 X10^3/uL; Monocyte% 9.7 % (0-10); NRBC Flagged by Analyzer 0 % (0-5); Neutrophil # 4.59 X10^3/uL (2.7-7.7); Neutrophil % 65.2 % (47-70); Platelet Count 334 K/mm3 (150-450); RBC Distribution Width CV 13.7 % (11.6-14.6); RBC Distribution Width SD 46.6 fl (35.1-43.9); Red Blood Count 4.05 M/mm3 (4.2-5.4)
[2023-09-28 14:44] LABS: Color, Urine Yellow (Yellow); Glucose, Dipstick Normal (Normal); Ketone-Dipstick Negative (Negative); Leukocyte Esterase-Dipstick 500 /ul (Negative); Nitrite-Dipstick Negative (Negative); Occult Blood-Urine Negative /ul (Negative); Protein-Dipstick Negative (Negative); Specific Gravity, Urine 1.015 (1.002-1.030); Urine Bilirubin Dipstick Negative (Negative); Urine Clarity Sl. Cloudy (Clear); Urine Urobilinogen Normal (Normal)
[2023-09-28 15:18] LABS: Hemoglobin A1c 7.1 % (3.8-5.6)
[2023-09-28 16:02] LABS: AST(SGOT) 30 U/L (15-37); Alanine Aminotransfer ALT/SGPT 28 U/L (13-56); Albumin, Serum 3.7 g/dL (3.2-5.0); Alkaline Phosphatase 204 U/L (45-117); Anion Gap 6 (5-15); BUN 25 mg/dL (7-18); BUN/Creat Ratio 28.6 RATIO (10-20); Calcium,Total 9.2 mg/dL (8.5-10.1); Chloride 103 mmol/L (98-107); Creatinine, Serum 0.88 mg/dL (0.55-1.02); EST Glomerular Filtration Rate 66 mL/min (>60); Est Glom Filt Rate - Afr Amer 80 mL/min (>60); Globulin 3.8 g/dL (2.2-4.2); Glucose 114 mg/dL (74-106); Potassium 4.1 mmol/L (3.5-5.1); Protein, Total 7.5 g/dL (6.4-8.2); Sodium Level 136 mmol/L (136-145)
[2023-09-28 16:19] LABS: BNP,B-Type NATRIURETIC PEPTIDE 24.9 pg/mL (0-100)
== END | disposition home or self-care (01) ==
LOC: BFHLAB 11:34
PROVIDERS: PCP Family Medicine; Referring Provider Family Medicine; Visit Provider Family Medicine
DX: I10 Essential (primary) hypertension (principal); E11.9 Type 2 diabetes mellitus without complications; R06.00 Dyspnea, unspecified; R60.9 Edema, unspecified
CPT/HCPCS: 36415; 80053; 81002; 83036; 83880; 85025

== ENCOUNTER → 2023-10-11 | Outpatient (CLI) | payer MEDICARE, SELFPAY ==
--- NOTE | 2023-10-11 15:08 | CT_ITS ---
STUDY: CT ABDOMEN AND PELVIS WITH CONTRAST REASON FOR EXAM: Female, 78 years old. Lower extremity swelling. Hypertension. Prior lumbar surgery and bilateral hip replacements. RADIATION DOSAGE (If Supplied By Facility): CTDIvol = ( 17.13 ) mGy, DLP = ( 1365.97 ) mGycm TECHNIQUE: Transaxial images were obtained from the dome of the diaphragm to the symphysis pubis with oral contrast. Oral and amp; IV Readi-CAT and amp; 100mL Isovue-300 was administered. Sagittal and coronal images were reconstructed. Individualized dose optimization techniques were used for this CT. COMPARISON: Comparison is made with prior study dated October 14, 2021. FINDINGS: The visualized lung bases are unremarkable. Coronary artery calcification. Normal liver. The patient is status post cholecystectomy. Normal spleen. Normal pancreas. Normal bilateral adrenal glands. Normal right kidney. Normal left kidney. There is a large hiatal hernia composed mostly of the fundus of the stomach. Normal small intestine. Normal colon. The appendix is visualized and appears normal. There is diffuse atherosclerotic calcification of the abdominal aorta, without a demonstrated aneurysm. Normal inferior vena cava. There is small retroperitoneal lymphadenopathy with enlarged nodes no greater than 10mm in the short axis diameter. Normal urinary bladder. Normal abdominal wall. Status post bilateral hip replacement. Prior laminectomy and fusion of the lower lumbar spine. CT/Abdomen/Pelvis WITH Contrast IMPRESSION: Large hiatal hernia. Stable examination. Electronically Signed: Zion Chen MD at 9:50 EDT ,
== END | disposition home or self-care (01) ==
LOC: CT 15:06
PROVIDERS: PCP Family Medicine; Referring Provider Family Medicine; Visit Provider Family Medicine
DX: R10.9 Unspecified abdominal pain (principal); R60.9 Edema, unspecified
CPT/HCPCS: 74177

== ENCOUNTER 2023-11-30 08:37 | Day surgery (SDC) | payer MEDICARE, SELFPAY ==
[2023-11-29 09:47] VITALS: BMI 34.0
[2023-11-30 09:01] LABS: Hematocrit 35.8 % (37-47); Hemoglobin 11.5 g/dL (12.0-15.0); Mean Corp Hgb Conc 32.1 g/dL (32-36); Mean Corpuscular Hgb 29.5 pg (27.0-32.0); Mean Corpuscular Volume 91.8 fL (81-99); Mean Platelet Vol. 9.7 fl (6.2-12.0); Platelet Count 293 K/mm3 (150-450); RBC Distribution Width CV 13.8 % (11.6-14.6); RBC Distribution Width SD 46.6 fl (35.1-43.9); White Blood Count 11.4 K/mm3 (4.4-11.0)
[2023-11-30 09:23] LABS: Anion Gap 7 (5-15); BUN 23 mg/dL (7-18); BUN/Creat Ratio 27.1 RATIO (10-20); Calcium,Total 9.2 mg/dL (8.5-10.1); Chloride 108 mmol/L (98-107); Creatinine, Serum 0.85 mg/dL (0.55-1.02); EST Glomerular Filtration Rate 68 mL/min (>60); Est Glom Filt Rate - Afr Amer 83 mL/min (>60); Estimated Creatinine Clearance 57.29 ml/min; Glucose 85 mg/dL (74-106); Potassium 4.2 mmol/L (3.5-5.1); Sodium Level 143 mmol/L (136-145)
--- NOTE | 2023-11-30 11:59 | OP.PCM_ITS ---
Report of Operation Date of Procedure: 11/30/23 Pre-Operative Diagnosis: venous insufficiency Post-Operative Diagnosis: same Surgery/Procedure Performed:: venogram IVC IVUS IVC, bilateral common/external iliac veins Surgeon: Chandana Anders Type of Anesthesia: Local and Sedation,Conscious Estimated Blood Loss (mL): 2 Description of Procedure: HPI: Patient is an 78-year-old female with chronic lower extremity edema which has been refractory to treatment of her superficial venous reflux. She also has a history of multiple deep venous thrombosis events and is currently on long- term anticoagulation. She presents for venogram to assess for central venous obstruction contributing to both her lower extremity edema as well as her thrombotic events. Description of procedure: Upon obtaining form consent and verification correct patient procedure site patient taken to the [facility] where she was positioned prepped and draped in you sterile fashion. Timeouts performed consultation administered Versed and fentanyl. Skin overlying the right common femoral vein was Nestabs 1% lidocaine the vessel accessed with micropuncture needle wire. This extended out for micropuncture sheath through which a hand-injection ilio caval venogram was performed which revealed satisfactory positioning no extravasation dissection. This also revealed normal caliber right external and common iliac vein as well as brisk contrast transit into the vena cava. A Bentson wire was then advanced and the micropuncture sheath exchanged out for an 8 Swazi sheath. Next skin overlying the left common femoral vein was Nestabs 1% lidocaine the vessel accessed with a micropuncture needle wire and ultrasound guidance. This was exchanged for a micropuncture sheath through which hand-injection ilio caval venogram was performed which revealed satisfactory positioning no extravasation dissection as well as normal caliber external and common iliac veins and brisk contrast transit into the vena cava. A J-wire was then advanced and the micropuncture sheath exchanged for an 8 Swazi sheath. Intravascular sound probe was advanced over the Bentson wire and recorded pullback performed of the IVC, right common iliac vein, right external iliac vein. This revealed normal caliber vessels with no sign of prior thrombotic changes and no evidence of compression. The wire and catheter then withdrawn and then readvanced via the left femoral access sheath and recorded pullback performed of the IVC, left common iliac vein, left external leg vein. Likewise this revealed no compression and no evidence of any prior thrombotic event changes. Seeing no evidence for any obstructive process no treatment was undertaken so the wires and catheters were withdrawn as were the sheath and manual pressure held until hemostasis was obtained. Patient was then taken recovery room with bedrest prior to discharge home.
== END 2023-11-30 13:45 | disposition home or self-care (01) ==
PROVIDERS: PCP Family Medicine; Referring Provider Surgery Trauma Surgery; Visit Provider Surgery Trauma Surgery
DX: R60.0 Localized edema (principal); Z86.718 Personal history of other venous thrombosis and embolism
CPT/HCPCS: 36010; 36415; 37252; 37253; 75825; 76937; 80048; 85027; 99152; 99153; C1753; C1769; C1894; J7040; Q9967; A4216

== ENCOUNTER 2023-12-03 19:13 | Observation (INO) | payer MEDICARE, SELFPAY ==
[2023-12-03] VITALS (10 sets, daily range): BP systolic 114–128; BP diastolic 55–61; PULSE 68–75; RESP 13–26; TEMP 25.2–36.9; O2SAT 94–98; BMI 34.7; BMI 33.9
--- NOTE | 2023-12-03 20:06 | EKG12_ITS ---
Test Reason : SOB Blood Pressure : / mmHG Vent. Rate : 066 BPM Atrial Rate : 066 BPM P-R Int : 206 ms QRS Dur : 090 ms QT Int : 386 ms P-R-T Axes : 013 001 038 degrees QTc Int : 404 ms Normal sinus rhythm Normal ECG Confirmed by LINA VILLA, ANDREI ([id number]), tape editor HILDA EVERETT ([id number]) on 12/08/2023 7:27:08 AM Referred By: Confirmed By:ABDIRIZAK MILLS MD
[2023-12-03 20:19] LABS: Absolute Lymphocyte Count 1.05 X10^3/uL (0.83-4.51); Absolute Neutrophil Count 13.9 X10^3/uL (2.0-7.7); Basophil# 0.05 X10^3/uL; Basophil% 0.3 % (0-1); Eosinophil# 0.05 X10^3/uL; Eosinophils% 0.3 % (0-5); Hematocrit 36.5 % (37-47); Hemoglobin 11.9 g/dL (12.0-15.0); Lymphocyte # 1.05 X10^3/ul (0.83-4.51); Lymphocyte % 6.5 % (19-41); Mean Corp Hgb Conc 32.6 g/dL (32-36); Mean Corpuscular Hgb 29.8 pg (27.0-32.0); Mean Corpuscular Volume 91.5 fL (81-99); Mean Platelet Vol. 10.2 fl (6.2-12.0); Monocyte% 6.2 % (0-10); NRBC Flagged by Analyzer 0 % (0-5); Neutrophil # 13.94 X10^3/uL (2.7-7.7); Neutrophil % 86.1 % (47-70); Platelet Count 281 K/mm3 (150-450); RBC Distribution Width CV 14.2 % (11.6-14.6); RBC Distribution Width SD 47.8 fl (35.1-43.9); Red Blood Count 3.99 M/mm3 (4.2-5.4); White Blood Count 16.2 K/mm3 (4.4-11.0)
--- NOTE | 2023-12-03 20:25 | RAD_ITS ---
STUDY: XR Chest 2 Views 12/03/2023 8:23 PM REASON FOR EXAM: Female, 78 years old. cough sob COMPARISON: 08/16/2023 TECHNIQUE: XR Chest 2 Views FINDINGS: There is no demonstrated pleural abnormality. Normal heart size. Normal mediastinum. Normal roderick. Prominent appearing increased interstitial lung markings. Normal visualized pulmonary arteries. There is atherosclerotic calcification of the aortic arch with tortuosity. There are diffuse degenerative changes of the visualized thoracic spine. There is degenerative osteoarthritis of the bilateral shoulders. Large hiatal hernia. Lumbar spinal fixation hardware. RAD/Chest PA and Lateral IMPRESSION: There are no acute findings. Electronically Signed: Donny Dai MD at 20:38 EDT ,
[2023-12-03 20:36] LABS: BNP,B-Type NATRIURETIC PEPTIDE 61.8 pg/mL (0-100)
[2023-12-03 20:37] LABS: Anion Gap 5 (5-15); BUN 20 mg/dL (7-18); BUN/Creat Ratio 20.9 RATIO (10-20); Calcium,Total 8.9 mg/dL (8.5-10.1); Chloride 103 mmol/L (98-107); Creatinine, Serum 0.96 mg/dL (0.55-1.02); EST Glomerular Filtration Rate 60 mL/min (>60); Est Glom Filt Rate - Afr Amer 72 mL/min (>60); Estimated Creatinine Clearance 51.28 ml/min; Glucose 189 mg/dL (74-106); Potassium 3.7 mmol/L (3.5-5.1); Sodium Level 137 mmol/L (136-145); Troponin-I HS (w/2H Reflex) 8 pg/mL (3.0-54.0)
--- NOTE | 2023-12-03 21:55 | CT_ITS ---
EXAM: CT ANGIOGRAPHY CHEST WITHOUT AND WITH INTRAVENOUS CONTRAST CLINICAL INDICATION: sob TECHNIQUE: Helically acquired angiography images were obtained of the chest without and with intravenous contrast. This CT exam was performed using one or more of the following dose reduction techniques: automated exposure control, adjustment of the mA and/or kV according to patient size, and/or use of iterative reconstruction technique. MIP reconstructed images were created and reviewed. CONTRAST: IV 100mL Isovue-370 COMPARISON: No relevant prior studies available. FINDINGS: PULMONARY ARTERIES: Unremarkable. Normal in caliber. No evidence of pulmonary embolism. AORTA: Unremarkable. Normal in caliber. No evidence of dissection. GREAT VESSELS OF AORTIC ARCH: Unremarkable. Normal in caliber. No evidence of dissection. LUNGS AND PLEURAL SPACES: Unremarkable. No mass. No consolidation or edema. No pleural effusion or thickening. No pneumothorax. HEART: Unremarkable. Heart size is normal. No pericardial effusion. No significant coronary artery calcifications. MEDIASTINUM: There is a large hiatal hernia. There is fluid seen within the esophagus possibly due to reflux. No mediastinal or hilar adenopathy. THYROID: Unremarkable. No thyroid lesions. BONES/JOINTS: Unremarkable. No suspicious lytic or blastic abnormality. CT/CTA Chest W/WO Contrast IMPRESSION: 1. No evidence of pulmonary embolus. 2. Large hiatal hernia. There is fluid within the esophagus which may be due to reflux. Electronically Signed: Jose Aviles MD at 23:00 EDT ,
--- NOTE | 2023-12-03 22:04 | EX.ED.DYSGE1 ---
HPI History of Present Illness Chief Complaint: Shortness of Breath Narrative Narrative: Patient is a 78-year-old female with past medical history of DVT PE on Eliquis, hypertension, GERD, hypothyroidism, IBS, JHONY on CPAP, type 2 diabetes, COPD who presents to the emergency department chief complaint of chest pain shortness of breath. According to the patient earlier this evening she was sitting at the table playing cards when she developed back pain that then radiated to her chest and noted that she had as significant shortness of breath prompting them to call EMS to have her brought here for the valuation management. Patient notes that her oxygen level was noted to be normal at home however given her symptoms a still placed on oxygen. Patient states that she has been coughing up a lot of sputum recently and notes that the past 2 nights while on her CPAP machine she has been hypoxic to the low 80s. Patient states that she generalized does not feel well. Patient denies any recent sick contacts. Patient states that she did have a procedure recently for her veins in her lower extremities evaluating for venous insufficiency and she states that she is been off her Eliquis for [address] [facility] Medical History Left-sided chest wall pain Venous insufficiency Hiatal hernia Esophageal spasm Edema JHONY (obstructive sleep apnea) History of basal cell carcinoma (BCC) History of DVT (deep vein thrombosis) Seizure disorder Osteoarthritis Essential hypertension GERD (gastroesophageal reflux disease) Parkinsons disease Lung disease Kidney disease Hypothyroidism Sleep apnea IBS (irritable bowel syndrome) Depression Asthma Obesity (BMI 30.0-34.9) Lumbar back pain Premature atrial contractions COPD (chronic obstructive pulmonary disease) Hyperlipidemia Diabetes mellitus type II, controlled History of pulmonary embolism Symptomatic bradycardia Home Medications ?Medication ?Instructions ?Recorded ?Last Taken ?Type omeprazole 20 mg capsule,delayed 20 mg PO DAILY ACID REFLUX 06/19/17 07/04/23 History release simvastatin 20 mg tablet 20 mg PO QHS cholesterol 90 days 09/01/17 07/03/23 History #90 tabs inhalational spacing device #1 ea 01/23/21 Unknown Rx (POCKET CHAMBER spacer) insulin glargine 100 unit/mL (3 40 unit subcut QAM diabetes 06/02/21 07/04/23 History mL) subcutaneous pen (Lantus Solostar U-100 Insulin) levothyroxine 100 mcg tablet 100 mcg PO DAILY THYROID 08/31/21 07/04/23 History pramipexole 0.75 mg tablet 0.75 mg PO BID parkinsons 07/04/23 07/04/23 History d-mannose 500 mg capsule 500 mg PO DAILY 07/11/23 Unknown History spironolactone 25 mg tablet 25 mg PO DAILY #90 tabs 07/11/23 Unknown Rx apixaban 5 mg tablet (Eliquis) 5 mg PO BID blood thinner #60 tabs 08/03/23 11/26/23 Rx albuterol sulfate 90 mcg/actuation 2 puff inhalation Q6H PRN 08/16/23 Unknown History aerosol inhaler shortness of breath or wheezing furosemide 40 mg tablet 40 mg PO BID 08/16/23 Unknown History potassium chloride 20 mEq 20 meq PO DAILY 08/16/23 Unknown History tablet,extended release(part/cryst) metolazone 5 mg tablet 5 mg PO DAILY 11/08/23 Unknown History Allergy/AdvReac Type Severity Reaction Status Date / Time nitrofurantoin Allergy Hives Verified 11/08/23 09:13 macrocrystalline (From Macrodantin) tree and shrub pollen Allergy Hives Verified 11/08/23 09:13 rosuvastatin (From Crestor) AdvReac Severe Muscle Verified 11/08/23 09:13 weakness colesevelam (From WelChol) AdvReac Intermediate nausea Verified 11/08/23 09:13 nitrofurantoin (From AdvReac Intermediate Hives Verified 11/08/23 09:13 Furadantin) metformin AdvReac Unknown Gi side Verified 11/08/23 09:13 effects Family History Father CAD (coronary artery disease) Diabetes Myocardial infarction Alzheimers disease Hypertension Parkinson's disease Cancer melanoma History of blood clots Mother Diabetes AAA (abdominal aortic aneurysm) Bleeding disorder Colon cancer Thyroid disorder Brother Multiple sclerosis Skin cancer Surgical History History of tonsillectomy and adenoidectomy Hx of lumbar discectomy History of right hip replacement (~07/08/15) History of lumbar fusion (~2012) History of Belkys fundoplication Hx of hernia repair History of cholecystectomy Social History household members: spouse and none Smoking Status: Never smoker alcohol intake: never substance use type: does not use diet: diabetic and gluten free caffeine: No what type of physical activity do you participate in: none seatbelt use: always do you feel safe at home: Yes ROS ROS ED ROS Narrative Constitutional: Patient denies any fevers, chills, headaches, lightheadedness, dizziness Eyes: Denies change in vision double vision blurry vision Cardiovascular: Complains of chest pain as noted above Respiratory: Complains of cough, shortness of breath as noted above Abdomen: Denies abdominal pain nausea vomit diarrhea : Denies any urinary symptoms Neurological: Denies any numbness, he does come tingling Musculoskeletal: Complaint of back pain as noted above Skin: Denies rashes or lesions EXAM Physical Exam Narrative Exam Narrative: General: Patient was lying in bed rest comfortably did not appear to be acute distress Head: Atraumatic, normocephalic Eyes: PERRL bilaterally, EOMI bilateral, no conjunctival injection noted Neck: Soft, supple, trachea midline Cardiovascular: Regular rate and rhythm no murmurs gallops rubs noted Respiratory: Diminished breath sounds bilaterally no rales noted Abdomen: No tenderness palpation, soft, nondistended Extremities: +5/5 strength noted in the bilateral upper and lower extremities, radial pulses +2/4 in the bilateral upper extremities Neurological: Patient follow commands knew that she is at [facility] years 2023 Skin: Warm, dry, intact. Const Vital Signs: 12/03/23 19:14 12/03/23 19:20 12/03/23 19:26 Temperature 97.3 F L 97.3 F L Temperature Source Temporal Temporal Pulse Rate 75 75 Respiratory Rate 26 H 20 H Respiratory Effort Normal Short of Breath Respiratory Depth Normal Respiratory Pattern Normal Blood Pressure 128/55 H 128/55 H Blood Pressure Mean 79 79 Pulse Ox 95 98 Oxygen Delivery Method Room Air Nasal Cannula Room Air Oxygen Flow Rate (L/min) 2 12/03/23 20:13 12/03/23 20:20 12/03/23 21:00 Temperature 97.6 F L 97.5 F L Temperature Source Temporal Temporal Pulse Rate 68 70 Respiratory Rate 18 22 H Respiratory Effort Respiratory Depth Respiratory Pattern Blood Pressure 124/56 H 120/60 Blood Pressure Mean 78 80 Pulse Ox 98 98 94 Oxygen Delivery Method Nasal Cannula Nasal Cannula Room Air Oxygen Flow Rate (L/min) 2 2 2 12/03/23 22:00 12/03/23 22:18 Temperature 97.6 F L 97.6 F L Temperature Source Temporal Pulse Rate 72 72 Respiratory Rate 13 13 Respiratory Effort Respiratory Depth Respiratory Pattern Blood Pressure 124/58 H 124/58 H Blood Pressure Mean 80 80 Pulse Ox 98 98 Oxygen Delivery Method Nasal Cannula Oxygen Flow Rate (L/min) 2 MDM MDM MDM Narrative Medical decision making narrative: Patient is a 78-year-old female who presented to the emerged part with chief complaint of back and chest pain and shortness of breath. Patient is not chronically on nasal cannula she was noted to be hypoxic here she was placed on 2 L nasal cannula. Patient once again had noted that she had been hypoxic the past 2 nights on her CPAP machine to the low 80s. Patient will have workup performed here on the differential diagnose includes but limited to PE as she has been off her Eliquis now for a week, COPD exacerbation, pneumonia, upper respiratory infection second viral etiology. Once workup is obtained reviewed she will be reevaluated. Patient's CBC reviewed and showed a leukocytosis of 16,000, hemoglobin is 11.9, platelet count normal at 281. Patient's sodium normal 137, potassium normal 3.7, creatinine normal at 0.96. Patient's glucose normal at 189. Patient's troponin normal at 8 and a proBNP normal at 61.8. Patient's EKG was reviewed and showed sinus rhythm with a rate of 66 bpm. Patient's chest x-ray was reviewed and showed no acute findings. At this point time given the patient has likely a COPD exacerbation with increased pedal production and increasing oxygen requirements while being hypoxic on her night CPAP I do believe she will warrant admission to the hospital. I will add on a CT PE protocol to rule ensure that she does not have any pulmonary embolism as she has been off her Eliquis now for a week after her procedure. Patient case will be discussed with hospitalist for admission. Patient was given Solu-Medrol, Rocephin and azithromycin. Patient's case discussed with hospitalist Dr. Busby who accept patient for admission. Patient was notified with all question concerns answered at bedside. Lab Data Labs: Laboratory Results - last 24 hr 12/03/23 19:28 WBC 16.2 H RBC 3.99 L Hgb 11.9 L Hct 36.5 L MCV 91.5 MCH 29.8 MCHC 32.6 RDW Std Deviation 47.8 H RDW Coeff of Basilio 14.2 Plt Count 281 MPV 10.2 Immature Gran % (Auto) 0.600 Neut % (Auto) 86.1 H Lymph % (Auto) 6.5 L [place] % (Auto) 6.2 Eos % (Auto) 0.3 Baso % (Auto) 0.3 Absolute Neuts (auto) 13.9 H Absolute Lymphs (auto) 1.05 Nucleated RBC % 0 Sodium 137 Potassium 3.7 Chloride 103 Carbon Dioxide 29.0 Anion Gap 5 BUN 20 H Creatinine 0.96 Estim Creat Clear Calc 51.28 Est GFR (MDRD) Af Amer 72 Est GFR (MDRD) Non-Af 60 BUN/Creatinine Ratio 20.9 H Glucose 189 H Calcium 8.9 Troponin I High Sens 8 B-Natriuretic Peptide 61.8 Radiography Diagnostic Testing: Clinical Impression(s) from Imaging Studies Chest X-Ray 12/03/23 20:25 IMPRESSION: There are no acute findings. Electronically Signed: Dnony Dai MD at 20:38 EDT Reading Location ID and State: [facility] / [place] , Service support , Discharge Plan Triage Chief Complaint: Shortness of Breath ED Provider: Kevin Gonzalez Dx/Rx/DC Orders Clinical Impression: Acute exacerbation of chronic obstructive pulmonary disease (COPD), Pneumonia, Hypoxia Prescriptions: No Action omeprazole 20 mg capsule,delayed release(DR/EC) 20 mg PO DAILY simvastatin 20 mg tablet 20 mg PO QHS 90 Days Qty: 90 insulin glargine [Lantus Solostar U-100 Insulin] 100 unit/mL (3 mL) insulin pen 40 unit subcut QAM d-mannose 500 mg capsule 500 mg PO DAILY spironolactone 25 mg tablet 25 mg PO DAILY Qty: 90 3RF metolazone 5 mg tablet 5 mg PO DAILY (DME) POCKET CHAMBER Spacer See Rx Instructions .ROUTE .MEDSUPPLY Qty: 1 0RF Rx Instructions: As directed levothyroxine 100 mcg tablet 100 mcg PO DAILY pramipexole 0.75 mg tablet 0.75 mg PO BID furosemide 40 mg tablet 40 mg PO BID potassium chloride 20 mEq tablet,ER particles/crystals 20 meq PO DAILY albuterol sulfate 90 mcg/actuation HFA aerosol inhaler 2 puff inhalation Q6H PRN (Reason: shortness of breath or wheezing) Eliquis 5 mg tablet 5 mg PO BID Qty: 60 12RF Primary Care Provider: Gael Garza Referrals: Gael Garza DO [Primary Care Provider] - Print Language: Korean
[2023-12-03] MEDS: MethylPREDNISolone 125 MG/2 ML Vial IV (22:06)
[2023-12-03 22:13] LABS: Reflex Troponin-HS? (from REC) Y
--- NOTE | 2023-12-03 22:15 | HP.PCM.HOS_ITS ---
[facility] - General General Date of Admission: 12/03/23 Date of Service: 12/03/23 Chief Complaint: SOB, Cough, Wheezing and Back Pain. HPI Narrative DUNG MEEK, is a 78 F with a past medical history of essential hypertension, hyperlipidemia, hypothyroidism, obesity; with BMI of 34.7 this admission, JHONY; on CPAP, DM-2; of unknown control, history of DVT/PE; with Apixaban temporarily on hold for 1 week after recent procedure for her venous insufficiency, Parkinson's disease; on pramipexole twice daily, history of seizures, history of depression, history of basal cell carcinoma, IBS, GERD; s/p Belkys fundoplication, history of right total hip replacement (2015), history of cholecystectomy, OA; with chronic lumbar back pain with history of lumbar discectomy with fusion (~2012) and history of heavy secondhand tobacco exposure; with subsequent asthma/COPD who presents to [facility] ER complaining of shortness of breath, cough, wheezing and back pain. Ms. Maloney reports her acute symptoms began approximately 3 hours prior to arrival when she was playing cards when she suddenly developed severe back pain that radiated into her chest along with the abrupt-onset of severe shortness of breath causing EMS to be activated. EMS noted that her oxygen level was normal but she was still placed on supplemental oxygen. She states she has been having a cough productive of significant yellowish-white sputum along with her noticing that she was hypoxic on CPAP for the past 2 nights with saturations in the low 80% range. She also admits to generalized weakness and malaise but she denies recent known sick contacts. There is no report of fever, chills, nausea, vomiting, diarrhea or constipation. In the ER she was diagnosed with acute exacerbation of asthma/COPD with leukocytosis of 16.2K present on admission complicated by respiratory insufficiency with a chest x-ray that was negative for acute pathologic changes compounded by acute exacerbation of chronic back pain likely triggered by worsening cough and she was then admitted to the general medical floor for ongoing care for stay that expected to extend beyond 2 midnights. [facility] Medical History Left-sided chest wall pain Venous insufficiency Hiatal hernia Esophageal spasm Edema JHONY (obstructive sleep apnea) History of basal cell carcinoma (BCC) History of DVT (deep vein thrombosis) Seizure disorder Osteoarthritis Essential hypertension GERD (gastroesophageal reflux disease) Parkinsons disease Lung disease Kidney disease Hypothyroidism Sleep apnea IBS (irritable bowel syndrome) Depression Asthma Obesity (BMI 30.0-34.9) Lumbar back pain Premature atrial contractions COPD (chronic obstructive pulmonary disease) Hyperlipidemia Diabetes mellitus type II, controlled History of pulmonary embolism Symptomatic bradycardia Home Medications ?Medication ?Instructions ?Recorded ?Last Taken ?Type omeprazole 20 mg capsule,delayed 20 mg PO DAILY ACID REFLUX 06/19/17 07/04/23 History release simvastatin 20 mg tablet 20 mg PO QHS cholesterol 90 days 09/01/17 07/03/23 History #90 tabs inhalational spacing device #1 ea 01/23/21 Unknown Rx (POCKET CHAMBER spacer) insulin glargine 100 unit/mL (3 40 unit subcut QAM diabetes 06/02/21 07/04/23 History mL) subcutaneous pen (Lantus Solostar U-100 Insulin) levothyroxine 100 mcg tablet 100 mcg PO DAILY THYROID 08/31/21 07/04/23 History pramipexole 0.75 mg tablet 0.75 mg PO BID parkinsons 07/04/23 07/04/23 History d-mannose 500 mg capsule 500 mg PO DAILY 07/11/23 Unknown History spironolactone 25 mg tablet 25 mg PO DAILY #90 tabs 07/11/23 Unknown Rx apixaban 5 mg tablet (Eliquis) 5 mg PO BID blood thinner #60 tabs 08/03/23 11/26/23 Rx albuterol sulfate 90 mcg/actuation 2 puff inhalation Q6H PRN 08/16/23 Unknown History aerosol inhaler shortness of breath or wheezing furosemide 40 mg tablet 40 mg PO .BIDLX WATER PILL 08/16/23 Unknown History potassium chloride 20 mEq 20 meq PO DAILY 08/16/23 Unknown History tablet,extended release(part/cryst) metolazone 5 mg tablet 5 mg PO DAILY 11/08/23 Unknown History Allergy/AdvReac Type Severity Reaction Status Date / Time nitrofurantoin Allergy Hives Verified 11/08/23 09:13 macrocrystalline (From Macrodantin) tree and shrub pollen Allergy Hives Verified 11/08/23 09:13 rosuvastatin (From Crestor) AdvReac Severe Muscle Verified 11/08/23 09:13 weakness colesevelam (From WelChol) AdvReac Intermediate nausea Verified 11/08/23 09:13 nitrofurantoin (From AdvReac Intermediate Hives Verified 11/08/23 09:13 Furadantin) metformin AdvReac Unknown Gi side Verified 11/08/23 09:13 effects Family History Father CAD (coronary artery disease) Diabetes Myocardial infarction Alzheimers disease Hypertension Parkinson's disease Cancer melanoma History of blood clots Mother Diabetes AAA (abdominal aortic aneurysm) Bleeding disorder Colon cancer Thyroid disorder Brother Multiple sclerosis Skin cancer Surgical History History of tonsillectomy and adenoidectomy Hx of lumbar discectomy History of right hip replacement (~07/08/15) History of lumbar fusion (~2012) History of Belkys fundoplication Hx of hernia repair History of cholecystectomy Social History household members: spouse and none Smoking Status: Never smoker alcohol intake: never substance use type: does not use diet: diabetic and gluten free caffeine: No what type of physical activity do you participate in: none seatbelt use: always do you feel safe at home: Yes ROS ROS Narrative Review of systems: General: Patient denies fever, chills or weight gain. HENT: Denies headache, denies stuffy nose, denies sore throat EYES: Denies changes in vision or discharge from eyes. Resp: Patient admits to pleuritic chest pain made worse with cough productive of yellowish-white sputum along with dyspnea on exertion that progressed to shortness of breath at rest with wheezing as per HPI. Cardiac: Patient admits to pleuritic chest pain but denies palpitations or heart racing. GI: Denies abdominal pain, denies changes in bowel, denies nausea or vomiting. : Denies changes in urination Ext: Denies swelling Msk: Feels somewhat generally weak and unwell Neuro: Patient denies headache, paresthesias or focal neurologic deficits. Heme: Denies any bleeding or bruising Skin: Denies rashes Psych: No complaints voiced related uncontrolled depression or anxiety. Endocrine: No polyuria, polydipsia or polyphagia. The rest of the 14 point ROS was negative except for positives in HPI. Vital Signs Vital Signs Vital Signs: 12/03/23 19:14 12/03/23 19:20 12/03/23 19:26 Temperature 97.3 F L 97.3 F L Temperature Source Temporal Temporal Pulse Rate 75 75 Respiratory Rate 26 H 20 H Respiratory Effort Normal Short of Breath Respiratory Depth Normal Respiratory Pattern Normal Blood Pressure 128/55 H 128/55 H Blood Pressure Mean 79 79 Pulse Ox 95 98 Oxygen Delivery Method Room Air Nasal Cannula Room Air Oxygen Flow Rate (L/min) 2 12/03/23 20:13 12/03/23 20:20 12/03/23 21:00 Temperature 97.6 F L 97.5 F L Temperature Source Temporal Temporal Pulse Rate 68 70 Respiratory Rate 18 22 H Respiratory Effort Respiratory Depth Respiratory Pattern Blood Pressure 124/56 H 120/60 Blood Pressure Mean 78 80 Pulse Ox 98 98 94 Oxygen Delivery Method Nasal Cannula Nasal Cannula Room Air Oxygen Flow Rate (L/min) 2 2 2 12/03/23 22:00 Temperature 97.6 F L Temperature Source Temporal Pulse Rate 72 Respiratory Rate 13 Respiratory Effort Respiratory Depth Respiratory Pattern Blood Pressure 124/58 H Blood Pressure Mean 80 Pulse Ox 98 Oxygen Delivery Method Nasal Cannula Oxygen Flow Rate (L/min) 2 Weight Weight: 202 lb 2.622 oz Body Mass Index (BMI) 34.7 Physical Exam Const alert and oriented x3 Constitutional Narrative: Mild distress noted with increased work of breathing. General Appearance: cooperative HEENT normocephalic, head/scalp atraumatic, hearing grossly normal bilaterally and moist oral mucous membranes HEENT Narrative: Poor dentition noted. Eyes PERRL and EOMs intact bilaterally Neck no lymphadenopathy and supple Resp Resp Narrative: Diminished breath sounds throughout. Cardio regular rate and regular rhythm GI normal to inspection, nondistended, normoactive bowel sounds, soft to palpation, non-tender and non-distended GI Narrative: Obese. Extremity normal to inspection, full ROM and no clubbing, cyanosis or edema Skin Skin Narrative: Patient has no evidence of rash, abscess or jaundice. Neuro oriented x3, CN's II-XII intact bilaterally, moves all extremities and no focal motor deficits Sensorium / Orientation: awake, alert, oriented to person, oriented to place and oriented to time Speech: speech normal Motor Exam: strength 5/5 throughout Psych affect normal Results Medical Records Data Attestation: I reviewed the patient's medical records Lab / Micro Data Attestation: I reviewed the patient's lab results. 12/04/23 01:29 12/04/23 01:29 Labs: Laboratory Results - last 24 hr 12/03/23 19:28: WBC 16.2 H, RBC 3.99 L, Hgb 11.9 L, Hct 36.5 L, MCV 91.5, MCH 29.8, MCHC 32.6, RDW Std Deviation 47.8 H, RDW Coeff of Basilio 14.2, Plt Count 281, MPV 10.2, Immature Gran % (Auto) 0.600, Neut % (Auto) 86.1 H, Lymph % (Auto) 6.5 L, [place] % (Auto) 6.2, Eos % (Auto) 0.3, Baso % (Auto) 0.3, Absolute Neuts (auto) 13.9 H, Absolute Lymphs (auto) 1.05, Nucleated RBC % 0, Sodium 137, Potassium 3.7, Chloride 103, Carbon Dioxide 29.0, Anion Gap 5, BUN 20 H, Creatinine 0.96, Estim Creat Clear Calc 51.28, Est GFR (MDRD) Af Amer 72, Est GFR (MDRD) Non-Af 60, BUN/Creatinine Ratio 20.9 H, Glucose 189 H, Calcium 8.9, Troponin I High Sens 8, B-Natriuretic Peptide 61.8 Imaging Radiology Impression Chest X-Ray 12/03/23 20:25 IMPRESSION: There are no acute findings. Electronically Signed: Donny Dai MD at 20:38 EDT Reading Location ID and State: [facility] / [place] , Service support , Assessment & Plan Assessment/Plan (1) Acute exacerbation of chronic obstructive pulmonary disease (COPD): (2) Respiratory insufficiency: (3) Back pain: QUALIFIERS: Back pain laterality: unspecified Back pain location: low back pain Chronicity: unspecified Sciatica presence: without sciatica Q ualified Code(s): M54.50 - Low back pain, unspecified (4) Obesity (BMI 30-39.9): (5) JHONY (obstructive sleep apnea): (6) History of venous thromboembolism: PLAN: Plan 1. Acute exacerbation of asthma/COPD with leukocytosis of 16.2 K present on admission - Admit to general medical floor. Continue broad-spectrum antibiotics with empiric IV Rocephin and IV azithromycin. Also continue steroids with Solu- Medrol 60 mg IV twice daily and then taper as tolerated. 2. Respiratory insufficiency arising from #1 - Wean supplemental oxygen as tolerated. 3. Acute exacerbation of chronic low back pain likely due to increased cough with history of OA and lumbar discectomy with fusion (~2012) complicating #1 & #2 - Give Tylenol as needed for [id number] (level 1-5/10) pain or fever. Give morphine IV as needed for severe (level 6-10/10) pain. 4. Obesity; with BMI of 34.7 this admission plus JHONY; on CPAP compounding #1 - #3 - Weight loss will be recommended. Continue CPAP. This complicates her case and may hamper her recovery. 5. History of DVT/PE; with Apixaban temporarily on hold for 1 week after recent procedure for her venous insufficiency - Noted. CTA chest negative for PE or other acute pathologic changes this admission. Restart Apixaban as appropriate prescheduled time. 6. Essential hypertension - Continue current regimen as previous plus give as needed IV hydralazine for systolic blood pressure greater than 160 mmHg. 7. Hyperlipidemia - Resume statin as previous. 8. Hypothyroidism - Restart Synthroid at current dosing and check TSH. 9. DM-2; of unknown control - ADA diet. Fingerstick blood sugar q. AC/HS + sliding scale insulin. Check hemoglobin A1c to objectively evaluate quality of diabetic control. 10. Parkinson's disease; on pramipexole twice daily - Continue home regimen. 11. History of seizures - Stable with no signs of recurrence and patient currently not on any AEDs. 12. History of depression - Apparently stable with patient currently not on any antidepressant agents. 13. History of basal cell carcinoma - Noted. 14. IBS - Stable. 15. GERD; s/p Belkys fundoplication - Resume PPI as previous. 16. History of right total hip replacement (2015) - Noted. 17. History of cholecystectomy - Noted. 18. DVT prophylaxis - Hold off on blood thinning agents and SCDs at this time due to recent procedure for venous insufficiency. Restart apixaban at prescheduled time. Total time: Approximately 75 minutes. Charges/Coding Visit Charges Inpatient E&M: 33725 Init Hosp L3
[2023-12-03] MEDS: Ceftriaxone 1 GM/50 ML BAG IV (22:25)
[2023-12-03] MEDS: Azithromycin 500 MG in Dextrose 5%-Water (250mL Bag) 250 ML 250 MG IV (23:10)
[2023-12-03 23:26] LABS: Troponin-I HS 6 pg/mL (3.0-54.0)
[2023-12-04] VITALS (10 sets, daily range): BP systolic 116–129; BP diastolic 54–66; PULSE 67–90; RESP 16–18; TEMP 36.4–37.2; O2SAT 94–96; BMI 33.8
[2023-12-04] MEDS: 0.9% Normal Saline (1000mL) 1,000 ML 70 ML IV ×2 (00:11→15:06)
[2023-12-04] MEDS: MELATONIN 3 MG TABLET PO ×2 (00:15→22:44)
[2023-12-04] MEDS: Acetaminophen 325 MG Tablet 650 MG PO ×2 (00:28→21:49)
[2023-12-04 01:33] LABS: Blood Gas Specimen Type VEN; O2 Delivery Device Not entered; SITE Not entered; VBG BASE EXCESS 2 mmol/L (-1.0-3.5); VBG Bicarbonate 25 mmol/L (22-26); VBG PO2 56 mmHg (25-40); VBG SO2 91 % (50-70); VBG TCO2 26 mmol/L (23-33); VBG pCO2 33.1 mmHg (41-51); VBG pH 7.49 (7.32-7.42)
[2023-12-04 03:02] LABS: Absolute Lymphocyte Count 0.64 X10^3/uL (0.83-4.51); Basophil# 0.03 X10^3/uL; Basophil% 0.2 % (0-1); Eosinophil# 0.01 X10^3/uL; Eosinophils% 0.1 % (0-5); Hematocrit 33.6 % (37-47); Hemoglobin 10.9 g/dL (12.0-15.0); Lymphocyte # 0.64 X10^3/ul (0.83-4.51); Lymphocyte % 4.6 % (19-41); Mean Corp Hgb Conc 32.4 g/dL (32-36); Mean Corpuscular Hgb 29.7 pg (27.0-32.0); Mean Corpuscular Volume 91.6 fL (81-99); Mean Platelet Vol. 10.2 fl (6.2-12.0); Monocyte# 0.16 X10^3/uL; Monocyte% 1.1 % (0-10); NRBC Flagged by Analyzer 0 % (0-5); Neutrophil # 12.99 X10^3/uL (2.7-7.7); Neutrophil % 93.4 % (47-70); POSITIVE MORPHOLOGY YES; Platelet Count 253 K/mm3 (150-450); RBC Distribution Width CV 14.1 % (11.6-14.6); RBC Distribution Width SD 47.6 fl (35.1-43.9); Red Blood Count 3.67 M/mm3 (4.2-5.4); White Blood Count 13.9 K/mm3 (4.4-11.0)
[2023-12-04 03:24] LABS: ALB/GLOB Ratio 0.8 RATIO (0.9-2.4); AST(SGOT) 41 U/L (15-37); Alanine Aminotransfer ALT/SGPT 37 U/L (13-56); Albumin, Serum 2.7 g/dL (3.2-5.0); Alkaline Phosphatase 222 U/L (45-117); Anion Gap 8 (5-15); BUN 19 mg/dL (7-18); BUN/Creat Ratio 20.5 RATIO (10-20); Calcium,Total 8.2 mg/dL (8.5-10.1); Chloride 101 mmol/L (98-107); Creatinine, Serum 0.93 mg/dL (0.55-1.02); EST Glomerular Filtration Rate 62 mL/min (>60); Est Glom Filt Rate - Afr Amer 75 mL/min (>60); Estimated Creatinine Clearance 54.23 ml/min; Globulin 3.5 g/dL (2.2-4.2); Glucose 308 mg/dL (74-106); Magnesium 1.8 mg/dL (1.6-2.6); Phosphorus 2.4 mg/dL (2.5-4.9); Potassium 4.1 mmol/L (3.5-5.1); Protein, Total 6.2 g/dL (6.4-8.2); Sodium Level 135 mmol/L (136-145)
[2023-12-04 03:35] LABS: Differential Comment SCANNED; Differential Indicated SCAN CRITERIA MET
[2023-12-04] MEDS: Insulin Lispro 100 UNIT/ML INSULN.PEN SC ×4 (06:43→22:36)
[2023-12-04] MEDS: Levothyroxine 100 MCG Tablet PO (06:43)
[2023-12-04 06:57] LABS: Bedside Glucose 359 mg/dL (74-106)
[2023-12-04] MEDS: Potassium Chloride Oral Tablet 20 MEQ PO (07:59)
[2023-12-04 08:51] LABS: Hemoglobin A1c 7.7 % (3.8-5.6)
[2023-12-04] MEDS: metOLazone 5 MG Tablet PO (10:53)
[2023-12-04] MEDS: Lactobacillis Acidophilus 1 CAP PO ×4 (10:53→21:49)
[2023-12-04] MEDS: MethylPREDNISolone 125 MG/2 ML Vial 60 MG IV ×2 (10:53→22:32)
[2023-12-04] MEDS: Pantoprazole Sodium 20 MG Tablet PO (10:54)
[2023-12-04] MEDS: Insulin Glargine-YFGN 100 UNIT/ML Pen 40 UNIT SC (10:54)
[2023-12-04] MEDS: Furosemide 40 MG Tablet PO ×2 (10:54→17:30)
[2023-12-04] MEDS: Spironolactone 25 MG Tablet PO (10:54)
--- NOTE | 2023-12-04 11:30 | CASEMGMT ---
JESSIE GONZALEZ Assessment: Face to Face with pt for initial transition planning/care coordination assessment. JESSIE GONZALEZ introduced self and role at [facility], pt voices understanding and consents to assessment. Pt is A&O x4 and answers all questions appropriately at this time. Pt sitting up in bed in no distress. Care providers, pharmacy, and demographics verified/updated. Admitting Dx: Acute exacerbation of COPD, Respiratory insufficiency and back pain. Strata Score: 3 PCP:Greg Specialists: Chago, Vascular; Smita, Electronic Gaming Device Supervisor; Lakisha, Nuerologist; Geraldo, Information Clerk; Michael, Urologist Preferred Pharmacy: [facility] Insurance: [employer] Prescription Benefit: yes LNOK: Travis, ; Laure, Daughter Living Arrangements: Pt lives with in a 2 story home with 1 step to enter. Pt reports I with ADLs and IADLs. Recently started needind assistance with laundry - helps. Transportation: Pt family provides transportation . DME: CPAP, walker, shower seat, raised toilet seat, glucometer and supplies. HHC/SNF: Previously at [facility] and used [facility] services. Pt states no concerns with going home at time of dc. Pt states no further concerns/needs. CM to follow. Advised pt to ask CM if any further question/concerns/needs arise, voices understanding. Pt Goal: Home Plan: Home, follow therapy recommendations. Pt agreeable to HHC if recommended. Jason Lockhart RN CM
[2023-12-04 12:13] LABS: Bedside Glucose 403 mg/dL (74-106)
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
--- NOTE | 2023-12-04 15:28 | PN_ITS ---
Subjective Subjective Patient seen and examined. She had no complaints and said she felt better today. She is on room air. She however remains quite weak and did get short of breath with exertion. Review of systems otherwise negative. Objective Data Objective Data Vital Signs: Vital Signs Temp Pulse Resp BP Pulse Ox O2 Del Method O2 Flow Rate 98.9 F 78 18 129/66 H 94 Room Air 2 12/04/23 08:08 12/04/23 08:08 12/04/23 08:08 12/04/23 08:08 12/04/23 11:33 12/04/23 11:33 12/03/23 22:00 FiO2 21 12/04/23 01:40 Oxygen Flow Rate (L/min) 2 Oxygen Delivery Method Room Air Weight: 203 lb 4.259 oz Body Mass Index (BMI) 33.8 Intake & Output: Intake and Output for Last 24 Hours 12/02/23 12/03/23 12/04/23 23:59 23:59 23:59 Intake Total 50 / 50 1455 / 1455 Balance 50 / 50 1455 / 1455 Lab / Micro Data 12/04/23 01:29 12/04/23 01:29 Labs: Laboratory Results - last 24 hr 12/03/23 19:28: WBC 16.2 H, RBC 3.99 L, Hgb 11.9 L, Hct 36.5 L, MCV 91.5, MCH 29.8, MCHC 32.6, RDW Std Deviation 47.8 H, RDW Coeff of Basilio 14.2, Plt Count 281, MPV 10.2, Immature Gran % (Auto) 0.600, Neut % (Auto) 86.1 H, Lymph % (Auto) 6.5 L, [place] % (Auto) 6.2, Eos % (Auto) 0.3, Baso % (Auto) 0.3, Absolute Neuts (auto) 13.9 H, Absolute Lymphs (auto) 1.05, Nucleated RBC % 0, Sodium 137, Potassium 3.7, Chloride 103, Carbon Dioxide 29.0, Anion Gap 5, BUN 20 H, Creatinine 0.96, Estim Creat Clear Calc 51.28, Est GFR (MDRD) Af Amer 72, Est GFR (MDRD) Non-Af 60, BUN/Creatinine Ratio 20.9 H, Glucose 189 H, Calcium 8.9, Troponin I High Sens 8, B-Natriuretic Peptide 61.8 12/03/23 22:29: Troponin I High Sens 6 12/04/23 01:29: WBC 13.9 H, RBC 3.67 L, Hgb 10.9 L, Hct 33.6 L, MCV 91.6, MCH 29.7, MCHC 32.4, RDW Std Deviation 47.6 H, RDW Coeff of Basilio 14.1, Plt Count 253, MPV 10.2, Immature Gran % (Auto) 0.600, Neut % (Auto) 93.4 H, Lymph % (Auto) 4.6 L, [place] % (Auto) 1.1, Eos % (Auto) 0.1, Baso % (Auto) 0.2, Absolute Neuts (auto) 13.0 H, Absolute Lymphs (auto) 0.64 L, Nucleated RBC % 0, Differential Comment SCANNED, Sodium 135 L, Potassium 4.1, Chloride 101, Carbon Dioxide 26.0, Anion Gap 8, BUN 19 H, Creatinine 0.93, Estim Creat Clear Calc 54.23, Est GFR (MDRD) Af Amer 75, Est GFR (MDRD) Non-Af 62, BUN/Creatinine Ratio 20.5 H, Glucose 308 H , Hemoglobin A1c 7.7 H, Calcium 8.2 L, Phosphorus 2.4 L, Magnesium 1.8, Total Bilirubin 0.60, AST 41 H, ALT 37, Alkaline Phosphatase 222 H, Total Protein 6.2 L, Albumin 2.7 L, Globulin 3.5, Albumin/Globulin Ratio 0.8 L, TSH 2.880 12/04/23 06:38: POC Glucose 359 H 12/04/23 11:52: POC Glucose 403 H ABG Data ABG results: ABG 12/04/23 01:29 Specimen Type DONALD Sample Site Not entered VBG pH 7.49 H VBG pO2 56 H VBG HCO3 25 VBG Total CO2 26 VBG O2 Sat (Calc) 91 H VBG Base Excess 2 POC Mix VBG pCO2 Pt Tmp 33.1 L O2 Delivery Device Not entered Radiography Diagnostic Testing: Radiology Impression Chest X-Ray 12/03/23 20:25 IMPRESSION: There are no acute findings. Electronically Signed: Donny Dai MD at 20:38 EDT , Chest CTA 12/03/23 21:55 IMPRESSION: 1. No evidence of pulmonary embolus. 2. Large hiatal hernia. There is fluid within the esophagus which may be due to reflux. Electronically Signed: Jose Aviles MD at 23:00 EDT , Physical Exam Const alert, oriented x3, no apparent distress and well nourished General Appearance: cooperative and well developed HEENT normocephalic, head/scalp atraumatic, moist oral mucous membranes, oropharynx normal and gingiva normal Eyes PERRL and EOMs intact bilaterally Neck no lymphadenopathy and supple Lymph Lymphatic: no lymphadenopathy noted and no lymphedema noted Resp Resp Narrative: diminished breath sounds bibasally, no wheezes or crackles. On room air. Cardio regular rate, regular rhythm, S1 normal heart sound, S2 normal heart sound and no murmurs GI normal to inspection, nondistended, normoactive bowel sounds, soft to palpation, non-tender and non-distended Extremity normal capillary refill, no clubbing, cyanosis or edema and no calf tenderness General Extremity: no tenderness to palpation of joints or extremities Skin General Skin Exam: no breakdown Neuro CN's II-XII intact bilaterally, no focal motor deficits, no sensory deficits noted and deep tendon reflexes 2+ bilaterally Motor Exam: strength 5/5 throughout and general weakness Psych thought process normal, cooperative and affect normal Appearance: appropriate Assessment & Plan Assessment/Plan (1) Acute exacerbation of chronic obstructive pulmonary disease (COPD): PLAN: Plan #Acute exacerbation of COPD and asthma * Patient feels better and she is now on room air. * On IV Solu-Medrol and IV Rocephin and azithromycin. * Breathing treatments bronchodilators. Titrate oxygen to maintain saturation above 90%. * She does get short of breath with exertion. * #Debility due to chronic low back pain * She does have a history of osteoarthritis and has had lumbar discectomy with fusion in 2012. * P.o. Tylenol as well as IV morphine as needed. * PT OT on board. Fall precautions * #History of DVT and PE * Currently on Eliquis which was held about a week for record of recent procedure for venous insufficiency. * CT negative for any evidence of PE. To resume Eliquis as prescribed at the prescheduled time. #Hypertension:on spironolactone and lasix. #Hyperlipidemia: on statin #Hypothyroidism: On Synthroid #Type 2 diabetes mellitus: Insulin sliding scale. Accu-Cheks ACHS. #Parkinson's disease: On pramipexole #History of seizures: Stable. He is currently not on any antiseizure medication #GERD s/p Belkys fundoplication: On pantoprazole DVT prophylaxis: SCDs. # Charges/Coding Visit Charges Inpatient E&M: 65943 Subs Hosp L2
[2023-12-04 16:59] LABS: Bedside Glucose 415 mg/dL (74-106)
[2023-12-04] MEDS: Albuterol 2.5 MG/3 ML VIAL.NEB. INHALATION (21:24)
[2023-12-04] MEDS: Ceftriaxone 1 GM/50 ML BAG IV (21:49)
[2023-12-04] MEDS: Atorvastatin Calcium 10 MG Tablet PO (21:50)
[2023-12-04] MEDS: Azithromycin 500 MG in Dextrose 5%-Water (250mL Bag) 250 ML 250 MG IV (22:31)
[2023-12-04 23:30] LABS: Bedside Glucose 426 mg/dL (74-106)
[2023-12-05 04:43] VITALS: BMI 33.9
[2023-12-05] MEDS: Levothyroxine 100 MCG Tablet PO (06:57)
[2023-12-05 07:00] VITALS: BP 139/63; PULSE 83; RESP 18; TEMP 36.5; O2SAT 97
[2023-12-05] MEDS: Insulin Lispro 100 UNIT/ML INSULN.PEN SC (07:00)
[2023-12-05 07:34] LABS: Bedside Glucose 407 mg/dL (74-106)
[2023-12-05 07:45] VITALS: O2SAT 94
[2023-12-05 07:56] LABS: Absolute Lymphocyte Count 0.64 X10^3/uL (0.83-4.51); Absolute Neutrophil Count 13.4 X10^3/uL (2.0-7.7); Basophil# 0.01 X10^3/uL; Basophil% 0.1 % (0-1); Hematocrit 31.7 % (37-47); Hemoglobin 10.6 g/dL (12.0-15.0); Lymphocyte # 0.64 X10^3/ul (0.83-4.51); Lymphocyte % 4.4 % (19-41); Mean Corp Hgb Conc 33.4 g/dL (32-36); Mean Corpuscular Volume 89.8 fL (81-99); Mean Platelet Vol. 10.2 fl (6.2-12.0); Monocyte# 0.28 X10^3/uL; Monocyte% 1.9 % (0-10); NRBC Flagged by Analyzer 0 % (0-5); Neutrophil # 13.42 X10^3/uL (2.7-7.7); Neutrophil % 92.7 % (47-70); Platelet Count 273 K/mm3 (150-450); RBC Distribution Width CV 13.9 % (11.6-14.6); RBC Distribution Width SD 45.3 fl (35.1-43.9); Red Blood Count 3.53 M/mm3 (4.2-5.4); White Blood Count 14.5 K/mm3 (4.4-11.0)
[2023-12-05 08:20] LABS: Anion Gap 10 (5-15); BUN 29 mg/dL (7-18); Calcium,Total 9.5 mg/dL (8.5-10.1); Chloride 103 mmol/L (98-107); Creatinine, Serum 0.97 mg/dL (0.55-1.02); EST Glomerular Filtration Rate 59 mL/min (>60); Est Glom Filt Rate - Afr Amer 71 mL/min (>60); Estimated Creatinine Clearance 51.99 ml/min; Glucose 385 mg/dL (74-106); Potassium 3.6 mmol/L (3.5-5.1); Sodium Level 136 mmol/L (136-145)
[2023-12-05] MEDS: Spironolactone 25 MG Tablet PO (08:27)
[2023-12-05] MEDS: Potassium Chloride Oral Tablet 20 MEQ PO (08:27)
[2023-12-05] MEDS: Furosemide 40 MG Tablet PO (08:27)
[2023-12-05] MEDS: Lactobacillis Acidophilus 1 CAP PO (08:27)
[2023-12-05] MEDS: Insulin Glargine-YFGN 100 UNIT/ML Pen 40 UNIT SC (08:28)
[2023-12-05] MEDS: Pantoprazole Sodium 20 MG Tablet PO (08:28)
[2023-12-05] MEDS: MethylPREDNISolone 125 MG/2 ML Vial 60 MG IV (08:29)
[2023-12-05] MEDS: metOLazone 5 MG Tablet PO (09:47)
[2023-12-05] MEDS: Glucerna Shake 120 ML LIQUID PO (09:50)
--- NOTE | 2023-12-05 10:45 | CASEMGMT ---
Discharge Planning A list of?SNF providers including quality and resource use data and consistent with the patient's preferred geographic region, medical needs, and insurance network was created in [employer] Guide.? This list was provided to the SW. Viv Esteban Discharge Planning Asst.
--- NOTE | 2023-12-05 10:58 | PN_ITS ---
Subjective Subjective Patient seen and examined. She had no complaints and felt well. She denied any shortness of breath, cough, chest pain or any other symptoms. Review of systems is otherwise negative. HE has remained hemodynamically stable. Objective Data Objective Data Vital Signs: Vital Signs Temp Pulse Resp BP Pulse Ox O2 Del Method O2 Flow Rate 97.7 F L 83 18 139/63 H 94 Room Air 2 12/05/23 07:00 12/05/23 07:00 12/05/23 07:00 12/05/23 07:00 12/05/23 07:45 12/05/23 07:45 12/03/23 22:00 FiO2 21 12/04/23 01:40 Oxygen Flow Rate (L/min) 2 Oxygen Delivery Method Room Air Weight: 203 lb 14.841 oz Body Mass Index (BMI) 33.9 Intake & Output: Intake and Output for Last 24 Hours 12/03/23 12/04/23 12/05/23 23:59 23:59 23:59 Intake Total 50 / 50 3360.5 / 3560.5 400 / 400 Balance 50 / 50 3360.5 / 3560.5 400 / 400 Lab / Micro Data 12/05/23 06:52 12/05/23 06:52 Labs: Laboratory Results - last 24 hr 12/04/23 11:52: POC Glucose 403 H 12/04/23 16:40: POC Glucose 415 H 12/04/23 22:35: POC Glucose 426 H 12/05/23 06:52: WBC 14.5 H, RBC 3.53 L, Hgb 10.6 L, Hct 31.7 L, MCV 89.8, MCH 30.0, MCHC 33.4, RDW Std Deviation 45.3 H, RDW Coeff of Basilio 13.9, Plt Count 273, MPV 10.2, Immature Gran % (Auto) 0.900, Neut % (Auto) 92.7 H, Lymph % (Auto) 4.4 L, [place] % (Auto) 1.9, Eos % (Auto) 0.0, Baso % (Auto) 0.1, Absolute Neuts (auto) 13.4 H, Absolute Lymphs (auto) 0.64 L, Nucleated RBC % 0, Sodium 136, Potassium 3.6, Chloride 103, Carbon Dioxide 23.0, Anion Gap 10, BUN 29 H, Creatinine 0.97, Estim Creat Clear Calc 51.99, Est GFR (MDRD) Af Amer 71, Est GFR (MDRD) Non-Af 59 L, BUN/Creatinine Ratio 30.0 H, Glucose 385 H, Calcium 9.5 12/05/23 06:59: POC Glucose 407 H Physical Exam Const alert, oriented x3, no apparent distress and well nourished General Appearance: cooperative and well developed HEENT normocephalic, head/scalp atraumatic, hearing grossly normal bilaterally, moist oral mucous membranes, oropharynx normal and gingiva normal Eyes PERRL and EOMs intact bilaterally Neck no lymphadenopathy and supple Lymph Lymphatic: no lymphadenopathy noted and no lymphedema noted Resp Resp Narrative: diminished breath sounds bibasally, no wheezes or crackles. On room air. Cardio regular rate, regular rhythm, S1 normal heart sound, S2 normal heart sound and no murmurs GI normal to inspection, nondistended, normoactive bowel sounds, soft to palpation, non-tender and non-distended GI Narrative: Obese. Extremity normal to inspection, full ROM, normal capillary refill, no clubbing, cyanosis or edema and no calf tenderness General Extremity: no tenderness to palpation of joints or extremities Skin General Skin Exam: no breakdown Neuro oriented x3, CN's II-XII intact bilaterally, moves all extremities, no focal motor deficits, no sensory deficits noted and deep tendon reflexes 2+ bilaterally Sensorium / Orientation: awake, alert, oriented to person, oriented to place and oriented to time Speech: speech normal Motor Exam: strength 5/5 throughout and general weakness Psych thought process normal, cooperative and affect normal Appearance: appropriate Assessment & Plan Assessment/Plan (1) Acute exacerbation of chronic obstructive pulmonary disease (COPD): PLAN: Plan #Acute exacerbation of COPD and asthma * Patient feels better and she is now on room air. * On IV Solu-Medrol and IV Rocephin and azithromycin. * Breathing treatments bronchodilators. Titrate oxygen to maintain saturation above 90%. * She does get short of breath with exertion. * will switch to PO prednisone * #Debility due to chronic low back pain * She does have a history of osteoarthritis and has had lumbar discectomy with fusion in 2013. * P.o. Tylenol as well as IV morphine as needed. * PT OT on board. Fall precautions * #History of DVT and PE * Currently on Eliquis which was held about a week for record of recent procedure for venous insufficiency. * CT negative for any evidence of PE. To resume Eliquis as prescribed at the prescheduled time. #Hypertension:on spironolactone and lasix. #Hyperlipidemia: on statin #Hypothyroidism: On Synthroid #Type 2 diabetes mellitus: Insulin sliding scale. Accu-Cheks ACHS. #Parkinson's disease: On pramipexole #History of seizures: Stable. He is currently not on any antiseizure medication #GERD s/p Belkys fundoplication: On pantoprazole DVT prophylaxis: SCDs. Disposition: patient says she feels too weak to go home. She is willing to go to a SNF. Case management on board. Charges/Coding Visit Charges Inpatient E&M: 83479 Subs Hosp L2
[2023-12-05 11:25] VITALS: O2SAT 93
--- NOTE | 2023-12-05 12:20 | CASEMGMT ---
Addendum entered by Marielena Montoya 12/05/23 13:57: Provided pt with rx for OP therapy. Pt wants to set this up on her own. Pt denies further homegoing needs at this time. Original Note: RN CM into pt room, pt sitting up in chair. Discussed dc planning with pt, she states that she feels she did well with therapy but feels she needs therapy post hospitalization. Pt states she would be able to do outpt therapy. Discussed local options for therapy, pt states she would like to go to [facility]. Updated hospitalist on plan.
[2023-12-05] MEDS: Acetaminophen 325 MG Tablet 650 MG PO (12:22)
[2023-12-05] MEDS: Insulin Lispro 100 UNIT/ML INSULN.PEN 15 UNIT SC (12:34)
[2023-12-05 12:42] LABS: Bedside Glucose 456 mg/dL (74-106)
--- NOTE | 2023-12-05 12:55 | DS.PCM_ITS ---
Providers Date of Admission: 12/03/23 Date of Discharge: 12/05/23 Primary Care Physician: Dr. Gael Garza DO Reason For Visit: ACUTE EXACERBATION OF COPD, RESPIRATORY Diagnosis Discharge Diagnosis (1) Acute exacerbation of chronic obstructive pulmonary disease (COPD): Status: Chronic Code(s): J44.1 - Chronic obstructive pulmonary disease with (acute) exacerbation Plan #Acute exacerbation of COPD and asthma * Patient feels better and she is now on room air. * On IV Solu-Medrol and IV Rocephin and azithromycin. * Breathing treatments bronchodilators. Titrate oxygen to maintain saturation above 90%. * She does get short of breath with exertion. * will switch to PO prednisone * #Debility due to chronic low back pain * She does have a history of osteoarthritis and has had lumbar discectomy with fusion in 2012. * P.o. Tylenol as well as IV morphine as needed. * PT OT on board. Fall precautions * #History of DVT and PE * Currently on Eliquis which was held about a week for record of recent procedure for venous insufficiency. * CT negative for any evidence of PE. To resume Eliquis as prescribed at the prescheduled time. #Hypertension:on spironolactone and lasix. #Hyperlipidemia: on statin #Hypothyroidism: On Synthroid #Type 2 diabetes mellitus: Insulin sliding scale. Accu-Cheks ACHS. #Parkinson's disease: On pramipexole #History of seizures: Stable. He is currently not on any antiseizure medication #GERD s/p Belkys fundoplication: On pantoprazole DVT prophylaxis: SCDs. Disposition: patient says she feels too weak to go home. She is willing to go to a SNF. Case management on board. Medications at Discharge Home Medications omeprazole 20 mg capsule,delayed release 20 mg PO DAILY ACID REFLUX 06/19/17 simvastatin 20 mg tablet 20 mg PO QHS cholesterol 90 days #90 tabs 09/01/17 inhalational spacing device (POCKET CHAMBER spacer) #1 ea 01/23/21 insulin glargine 100 unit/mL (3 mL) subcutaneous pen (Lantus Solostar U-100 Insulin) 40 unit subcut QAM diabetes 06/02/21 levothyroxine 100 mcg tablet 100 mcg PO DAILY THYROID 08/31/21 pramipexole 0.75 mg tablet 0.75 mg PO BID parkinsons 07/04/23 d-mannose 500 mg capsule 500 mg PO DAILY 07/11/23 spironolactone 25 mg tablet 25 mg PO DAILY #90 tabs 07/11/23 apixaban 5 mg tablet (Eliquis) 5 mg PO BID blood thinner #60 tabs 08/03/23 albuterol sulfate 90 mcg/actuation aerosol inhaler 2 puff inhalation Q6H PRN shortness of breath or wheezing 08/16/23 furosemide 40 mg tablet 40 mg PO .BIDLX WATER PILL 08/16/23 potassium chloride 20 mEq tablet,extended release(part/cryst) 20 meq PO DAILY 08/16/23 metolazone 5 mg tablet 5 mg PO DAILY 11/08/23 azithromycin 500 mg tablet 500 mg PO DAILY 3 days #3 tabs 12/05/23 prednisone 20 mg tablet 40 mg (2 x 20 mg) PO DAILY #10 tabs 12/05/23 Hospital Course Operations None Procedures None Summary of Care Provided Minutes Spent on Discharge: 47 Hospital Course: Patient is an 78 y/o female with a past medical history as outlined was admitted through the ED on 12/03/2023 with a complaint of shortness of breath, cough and wheezing. EMS was called due to her worsening shortness of breath. She also had a cough productive of yellowish-whitish sputum. She says she had noted that her oxygen had been low in the 80s at home so she came into the ED. CBC showed WBC of 16.2 and chest x-ray showed no acute cardiopulmonary pathology. She was admitted and managed for acute exacerbation of COPD. She was started on IV Solu-Medrol and also started on IV ceftriaxone and azithromycin. Her breathing improved and she did feel better. She was weaned off of oxygen onto room air. She was placed on p.o. prednisone. Patient initially wanted to go to a senior care facility but subsequently was agreeable to going home with home health. She was therefore discharged home with home health on 12/05/2023. She was given a prescription for p.o. prednisone 40 mg daily for 5 days and was also given a prescription for p.o. azithromycin 500 mg daily for 3 days. She is follow-up with her primary care doctor within 1 to 2 weeks. Patient was seen and examined prior to discharge. She had no complaints and felt better. She had an uneventful night and review of systems otherwise negative. Labs and vitals reviewed. Medication reviewed and reconciled. Physical Exam Const alert, oriented x3, no apparent distress and well nourished General Appearance: cooperative, comfortable, well kempt and well developed Orientation / Consciousness: awake Exam Limitations: no limitations HEENT normocephalic, head/scalp atraumatic, hearing grossly normal bilaterally, moist oral mucous membranes, oropharynx normal and gingiva normal Eyes PERRL and EOMs intact bilaterally Neck no lymphadenopathy and supple Lymph Lymphatic: no lymphadenopathy noted and no lymphedema noted Resp Resp Narrative: diminished breath sounds bibasally, no wheezes or crackles. On room air. Cardio regular rate, regular rhythm, S1 normal heart sound, S2 normal heart sound and no murmurs GI normal to inspection, nondistended, normoactive bowel sounds, soft to palpation, non-tender and non-distended GI Narrative: Obese. Extremity normal to inspection, full ROM, normal capillary refill, no clubbing, cyanosis or edema and no calf tenderness General Extremity: no tenderness to palpation of joints or extremities Skin Skin Narrative: Patient has no evidence of rash, abscess or jaundice. General Skin Exam: no breakdown Neuro oriented x3, CN's II-XII intact bilaterally, moves all extremities, no focal motor deficits, no sensory deficits noted and deep tendon reflexes 2+ bilaterally Sensorium / Orientation: awake, alert, oriented to person, oriented to place and oriented to time Speech: speech normal Motor Exam: strength 5/5 throughout and general weakness Psych thought process normal, cooperative and affect normal Appearance: appropriate Weight / BMI Weight Weight: 203 lb 14.841 oz Body Mass Index (BMI) 33.9 ABG / Lab / Microbiology Data 12/05/23 06:52 12/05/23 06:52 Laboratory: Laboratory Results - last 24 hr 12/04/23 16:40: POC Glucose 415 H 12/04/23 22:35: POC Glucose 426 H 12/05/23 06:52: WBC 14.5 H, RBC 3.53 L, Hgb 10.6 L, Hct 31.7 L, MCV 89.8, MCH 30.0, MCHC 33.4, RDW Std Deviation 45.3 H, RDW Coeff of Basilio 13.9, Plt Count 273, MPV 10.2, Immature Gran % (Auto) 0.900, Neut % (Auto) 92.7 H, Lymph % (Auto) 4.4 L, [place] % (Auto) 1.9, Eos % (Auto) 0.0, Baso % (Auto) 0.1, Absolute Neuts (auto) 13.4 H, Absolute Lymphs (auto) 0.64 L, Nucleated RBC % 0, Sodium 136, Potassium 3.6, Chloride 103, Carbon Dioxide 23.0, Anion Gap 10, BUN 29 H, Creatinine 0.97, Estim Creat Clear Calc 51.99, Est GFR (MDRD) Af Amer 71, Est GFR (MDRD) Non-Af 59 L, BUN/Creatinine Ratio 30.0 H, Glucose 385 H, Calcium 9.5 12/05/23 06:59: POC Glucose 407 H 12/05/23 12:19: POC Glucose 456 H* D/C Instructions Discharge Diet: Low fat / Low cholesterol Discharge Activity: Return to Normal Activity Weight Bearing Status: Weight bearing as tolerated Call your doctor if you observe: Fever of 101 or Higher, Shortness of breath, Dizziness, Swelling in the ankles, Chest pain and Increased palpitations (irregular heartbeat) Meaningful Use Info Meaningful Use Meaningful Use Diagnoses (Choose all that apply): None applicable Ischemic Stroke Statin Dosing Therapy Reference: STATIN DOSE THERAPY REFERENCE: * Patients > 75 years receive moderate or high dose statin therapy. * Patients 75 years or YOUNGER should receive HIGH intensity statin dose unless contraindicated. You will be required to document reason for non-treatment if statin daily dose does not meet guidelines. HIGH DOSE STATIN THERAPY DAILY Atorvastatin > than or = to 40 mg Rosuvastatin > than or = to 20 mg Amlodipine + Atorvastatin > than or = to 2.5/40 mg Ezetimibe + Simvastatin 10/80 mg Simvastatin 80mg Discharge Plan Admission Admit Date/Time: 12/03/23 22:42 Primary Reason for Your Visit: COPD exacerbation Attending Provider: Paola Osorio Primary Care Provider: Gael Garza Consulting Providers: Zion Hinton Instructions Patient Instructions: COPD Controlled Breathing Dc Discharge Orders/Prescriptions Prescriptions: New prednisone 20 mg tablet 40 mg PO DAILY Qty: 10 0RF azithromycin 500 mg tablet 500 mg PO DAILY 3 Days Qty: 3 0RF Continued omeprazole 20 mg capsule,delayed release(DR/EC) 20 mg PO DAILY simvastatin 20 mg tablet 20 mg PO QHS 90 Days Qty: 90 insulin glargine [Lantus Solostar U-100 Insulin] 100 unit/mL (3 mL) insulin pen 40 unit subcut QAM d-mannose 500 mg capsule 500 mg PO DAILY spironolactone 25 mg tablet 25 mg PO DAILY Qty: 90 3RF metolazone 5 mg tablet 5 mg PO DAILY (DME) POCKET CHAMBER Spacer See Rx Instructions .ROUTE .MEDSUPPLY Qty: 1 0RF Rx Instructions: As directed levothyroxine 100 mcg tablet 100 mcg PO DAILY pramipexole 0.75 mg tablet 0.75 mg PO BID furosemide 40 mg tablet 40 mg PO .BIDLX potassium chloride 20 mEq tablet,ER particles/crystals 20 meq PO DAILY albuterol sulfate 90 mcg/actuation HFA aerosol inhaler 2 puff inhalation Q6H PRN (Reason: shortness of breath or wheezing) Eliquis 5 mg tablet 5 mg PO BID Qty: 60 12RF Referrals / Follow Up: Gael Garza, [Primary Care Provider] - Within 1 Week (I called Dr. Garza's office. I had to leave a message. I asked the office to call the patient to set up a appointment. If the office does not call the patient within 2 days please call the office to make this appointment.) Disposition Disposition (needs filled in before D/C Order can be placed): Home, Self Care Charges/Coding Visit Charges Inpatient E&M: 14281 Disch Hosp >30min
--- NOTE | 2023-12-05 14:11 | CASEMGMT ---
Social Work- Pt confirms she has completed a living will and health care POA naming Laure and Ana Lilia, daughters, as agents.? Pt notified that documents are not on file at [facility] and SW requested they be brought in for scanning into the EMR.? CASI Wade
[2023-12-05 15:17] VITALS: BP 119/60; PULSE 76; RESP 18; TEMP 37.2; O2SAT 96
== END 2023-12-05 15:30 | disposition home or self-care (01) ==
LOC: ED 22:21 → MS3 12-04 06:18
PROVIDERS: Admitting Provider Internal Medicine; Emergency Provider Emergency Medicine; PCP Family Medicine; Visit Provider Student in an Organized Health Care Education/Training Program
DX: J44.1 Chronic obstructive pulmonary disease with (acute) exacerbation (principal); G20.A1 Parkinson's disease without dyskinesia, without mention of fluctuations; E11.59 Type 2 diabetes mellitus with other circulatory complications; Z79.4 Long term (current) use of insulin; E03.9 Hypothyroidism, unspecified; I10 Essential (primary) hypertension; E66.9 Obesity, unspecified; K21.9 Gastro-esophageal reflux disease without esophagitis; G47.33 Obstructive sleep apnea (adult) (pediatric); E78.5 Hyperlipidemia, unspecified; I87.2 Venous insufficiency (chronic) (peripheral); G89.29 Other chronic pain; Z68.34 Body mass index [BMI] 34.0-34.9, adult; Z79.01 Long term (current) use of anticoagulants; Z79.890 Hormone replacement therapy; Z79.899 Other long term (current) drug therapy; Z86.711 Personal history of pulmonary embolism; Z86.718 Personal history of other venous thrombosis and embolism; R60.0 Localized edema; M54.50 Low back pain, unspecified
CPT/HCPCS: C1894; 36010; 36415; 37252; 37253; 71046; 71275; 75825; 76937; 80048; 80053; 82803; 82962; 83036; 83735; 83880; 84100; 84443; 84484; 85025; 85027; 93005; 94640; 94660; 94668; 96365; 96366; 96367; 96375; 96376; 97162; 97166; 99152; 99153; 99221; 99285; C1753; C1769; Q9967; A4216; G0378

== ENCOUNTER → 2023-12-11 | Outpatient (CLI) | payer MEDICARE, SELFPAY ==
[2023-12-11 18:11] LABS: Erythrocyte Sedimentation Rate 30 mm/hr (0-30)
[2023-12-13 17:07] LABS: ANTINUCLEAR ANTIBODIES DIRECT Negative (Negative); CRP, High Sensitivity 9.58 mg/L (0.00-3.00)
== END | disposition home or self-care (01) ==
LOC: MTLAB 16:13
PROVIDERS: PCP Family Medicine; Referring Provider Internal Medicine Pulmonary Disease; Visit Provider Internal Medicine Pulmonary Disease
DX: R06.02 Shortness of breath (principal)
CPT/HCPCS: 36415; 85652; 86038; 86140; 86141; 86431

== ENCOUNTER 2023-12-17 14:03 | Inpatient (IN) | payer MEDICARE, SELFPAY ==
[2023-12-17] VITALS (7 sets, daily range): BP systolic 114–136; BP diastolic 70–80; PULSE 74–87; RESP 14–18; TEMP 35.9–36.7; O2SAT 94–97; BMI 30.6; BMI 30.9
--- NOTE | 2023-12-17 14:32 | RAD_ITS ---
EXAM: XR LEFT HIP WITH PELVIS WHEN PERFORMED, 2 OR 3 VIEWS CLINICAL INDICATION: fall pain. TECHNIQUE: Two or three views of the left hip with pelvis when performed. COMPARISON: CT abdomen and pelvis, 10/11/2023. FINDINGS: BONES/JOINTS: Bilateral hip arthroplasty with normal alignment and postoperative changes partially visualized in the lower lumbar spine. No displaced fracture. No destructive or sclerotic lesions. Note that overlapping bowel shadows may however obscure fine detail. Symmetric SI joints. No widening of the pubic symphysis. SOFT TISSUES: No significant abnormality. No soft tissue swelling or gas. RAD/HIP, UNI W/ Pelvis 2-3 Views IMPRESSION: Bilateral hip arthroplasty with normal alignment and postoperative changes partially visualized in the lower lumbar spine. No acute fracture or dislocation is identified. Electronically Signed: Daniel Ramey DO at 15:25 EDT ,
--- NOTE | 2023-12-17 14:32 | EKG12_ITS ---
Test Reason : SYNCOPE Blood Pressure : / mmHG Vent. Rate : 079 BPM Atrial Rate : 079 BPM P-R Int : 186 ms QRS Dur : 088 ms QT Int : 358 ms P-R-T Axes : 003 -15 091 degrees QTc Int : 410 ms Normal sinus rhythm Minimal voltage criteria for LVH, may be normal variant ( R in aVL ) Abnormal QRS-T angle, consider primary T wave abnormality Abnormal ECG Confirmed by JOE VILLA, SUNITHA ([id number]), website/blog editor JED KNOTT ([id number]) on 12/19/2023 8:05:57 AM Referred By: ESAU/MALIKA Confirmed By:SUNITHA DIAZ MD
--- NOTE | 2023-12-17 14:34 | RAD_ITS ---
EXAM: XR CHEST, 1 VIEW CLINICAL INDICATION: syncope TECHNIQUE: Frontal view of the chest. COMPARISON: 12/03/2023 FINDINGS: LUNGS AND PLEURAL SPACES: No significant abnormality. No consolidation or edema. No pneumothorax. No effusion. HEART: No significant abnormality. Cardiac silhouette not enlarged. MEDIASTINUM: Large hiatal hernia present. BONES/JOINTS: Degenerative changes in the spine and shoulders. No acute fracture. SOFT TISSUES: No significant abnormality. VASCULATURE: Atherosclerosis. RAD/Chest 1 View (Portable) IMPRESSION: Large hiatal hernia present. No acute findings are otherwise identified. Electronically Signed: Daniel Ramey DO at 15:24 EDT ,
[2023-12-17 14:46] LABS: Absolute Lymphocyte Count 1.59 X10^3/uL (0.83-4.51); Basophil# 0.08 X10^3/uL; Basophil% 0.4 % (0-1); Eosinophil# 0.05 X10^3/uL; Eosinophils% 0.3 % (0-5); Hematocrit 44.7 % (37-47); Hemoglobin 14.9 g/dL (12.0-15.0); Lymphocyte # 1.59 X10^3/ul (0.83-4.51); Lymphocyte % 8.5 % (19-41); Mean Corp Hgb Conc 33.3 g/dL (32-36); Mean Corpuscular Hgb 29.2 pg (27.0-32.0); Mean Corpuscular Volume 87.5 fL (81-99); Mean Platelet Vol. 10.3 fl (6.2-12.0); Monocyte# 1.58 X10^3/uL; Monocyte% 8.4 % (0-10); NRBC Flagged by Analyzer 0 % (0-5); Neutrophil # 14.97 X10^3/uL (2.7-7.7); Neutrophil % 79.8 % (47-70); POSITIVE DIFFERENTIAL YES; Platelet Count 503 K/mm3 (150-450); RBC Distribution Width CV 13.3 % (11.6-14.6); RBC Distribution Width SD 42.5 fl (35.1-43.9); Red Blood Count 5.11 M/mm3 (4.2-5.4); White Blood Count 18.8 K/mm3 (4.4-11.0)
[2023-12-17 14:51] LABS: Differential Indicated SCAN CRITERIA MET
--- NOTE | 2023-12-17 14:52 | EX.ED.DYSGE1 ---
HPI History of Present Illness Chief Complaint: Syncope Detail of Chief Complaint: Patient presents after syncopal episode. Informant: patient and spouse/S.O. Onset/Context/Timing Onset: Today Context: Sudden Onset Timing: Intermittent Quality: Passed out with no prodrome and reported dark black emesis Location: Walking to kitchen Current Severity: Mild Maximum Severity: Severe Worsened by: Nothing Relieved by: Awoke on the floor Associated Symptoms Associated Symptoms: Does not feel well for the past couple of days Narrative Narrative: Patient is an 81-year-old woman with history of COPD, DVT and PE on Eliquis, hypertension, hyperlipidemia, hypothyroidism, type 2 diabetes with continuous churn buttermaker insulin use, Parkinson's disease and history of seizures. She is status post Belkys fundoplication. She presents after syncopal episode. She states she was walking to the kitchen. She awoke on the floor. She states she had an episode of emesis that was dark black in color. She denies black or maroon-colored stool. She does endorse thirst, dry mouth and lightheadedness with standing. She denies headache. She denies double vision, blurred vision loss of vision. She denies ringing or ears decreased hearing. She denies trouble with speech or swallowing. She denies neck pain. She denies chest pain, shortness of breath difficulty breathing. She does endorse continuous nausea. She denies abdominal pain. History is limited to what his documented because patient has no recall. Prior similar symptoms: No Recent Illness/Hospitalization: Yes [facility] Medical History JHONY (obstructive sleep apnea) Obesity (BMI 30-39.9) Back pain History of venous thromboembolism Left-sided chest wall pain Venous insufficiency Hiatal hernia Esophageal spasm Edema JHONY (obstructive sleep apnea) History of basal cell carcinoma (BCC) History of DVT (deep vein thrombosis) Seizure disorder Osteoarthritis Essential hypertension GERD (gastroesophageal reflux disease) Parkinsons disease Lung disease Kidney disease Hypothyroidism Sleep apnea IBS (irritable bowel syndrome) Depression Asthma Obesity (BMI 30.0-34.9) Lumbar back pain Premature atrial contractions COPD (chronic obstructive pulmonary disease) Hyperlipidemia Diabetes mellitus type II, controlled History of pulmonary embolism Symptomatic bradycardia Home Medications ?Medication ?Instructions ?Recorded ?Last Taken ?Type omeprazole 20 mg capsule,delayed 20 mg PO DAILY ACID REFLUX 06/19/17 07/04/23 History release simvastatin 20 mg tablet 20 mg PO QHS cholesterol 90 days 09/01/17 07/03/23 History #90 tabs inhalational spacing device #1 ea 01/23/21 Unknown Rx (POCKET CHAMBER spacer) insulin glargine 100 unit/mL (3 40 unit subcut QAM diabetes 06/02/21 07/04/23 History mL) subcutaneous pen (Lantus Solostar U-100 Insulin) levothyroxine 100 mcg tablet 100 mcg PO DAILY THYROID 08/31/21 07/04/23 History pramipexole 0.75 mg tablet 0.75 mg PO BID parkinsons 07/04/23 07/04/23 History d-mannose 500 mg capsule 500 mg PO DAILY 07/11/23 Unknown History spironolactone 25 mg tablet 25 mg PO DAILY #90 tabs 07/11/23 Unknown Rx apixaban 5 mg tablet (Eliquis) 5 mg PO BID blood thinner #60 tabs 08/03/23 11/26/23 Rx albuterol sulfate 90 mcg/actuation 2 puff inhalation Q6H PRN 08/16/23 Unknown History aerosol inhaler shortness of breath or wheezing furosemide 40 mg tablet 40 mg PO .BIDLX WATER PILL 08/16/23 Unknown History potassium chloride 20 mEq 20 meq PO DAILY 08/16/23 Unknown History tablet,extended release(part/cryst) metolazone 5 mg tablet 5 mg PO DAILY 11/08/23 Unknown History azithromycin 500 mg tablet 500 mg PO DAILY 3 days #3 tabs 12/05/23 Unknown Rx prednisone 20 mg tablet 40 mg (2 x 20 mg) PO DAILY #10 tabs 12/05/23 Unknown Rx Allergy/AdvReac Type Severity Reaction Status Date / Time nitrofurantoin Allergy Hives Verified 12/17/23 14:07 macrocrystalline (From Macrodantin) tree and shrub pollen Allergy Hives Verified 12/17/23 14:07 rosuvastatin (From Crestor) AdvReac Severe Muscle Verified 12/12/23 10:21 weakness colesevelam (From WelChol) AdvReac Intermediate nausea Verified 12/17/23 14:07 nitrofurantoin (From AdvReac Intermediate Hives Verified 12/17/23 14:07 Furadantin) metformin AdvReac Unknown Gi side Verified 12/17/23 14:07 effects Family History Father CAD (coronary artery disease) Diabetes Myocardial infarction Alzheimers disease Hypertension Parkinson's disease Cancer melanoma History of blood clots Mother Diabetes AAA (abdominal aortic aneurysm) Bleeding disorder Colon cancer Thyroid disorder Brother Multiple sclerosis Skin cancer Surgical History History of tonsillectomy and adenoidectomy Hx of lumbar discectomy History of right hip replacement (~07/08/15) History of lumbar fusion (~2012) History of Belkys fundoplication Hx of hernia repair History of cholecystectomy Social History household members: spouse and none Smoking Status: Never smoker alcohol intake: never substance use type: does not use diet: diabetic and gluten free caffeine: No what type of physical activity do you participate in: none seatbelt use: always do you feel safe at home: Yes ROS ROS ED Constitutional Constitutional ED: Denies chills, fever(s), subjective or sweats Eyes Eyes: Denies blurry vision, change in vision or diplopia ENT ENT ED: Denies ear pain, rhinorrhea or sore throat Cardiovascular Cardiovascular: Denies chest pain, orthopnea, palpitations or racing heartbeat Respiratory/Chest Respiratory/Chest: Denies cough, dyspnea, dyspnea on exertion or orthopnea Gastrointestinal Gastrointestinal: Reports nausea, vomiting and other Details: And per HPI narrative ; Denies abdominal pain, constipation, diarrhea or melena Musculoskeletal Musculoskeletal: Denies arthralgias or myalgias Integumentary Denies Abrasions or rash Neurologic Neurologic: Reports weakness; Denies headache(s) or paresthesias Psychiatric Psychiatric: Denies anxiety Endocrine Endocrinology: Denies cold intolerance or heat intolerance Hematologic/Lymphatic Hematologic/Lymphatic: Reports systems reviewed and no addt'l complaints, except as documented EXAM Physical Exam Const Vital Signs: 12/17/23 14:03 12/17/23 14:08 12/17/23 16:03 Temperature 96.7 F L Temperature Source Temporal Pulse Rate 84 74 Respiratory Rate 15 16 Blood Pressure 128/80 H 136/73 H Blood Pressure Mean 96 94 Pulse Ox 97 Positive well nourished and well developed Constitutional Narrative: Patient does not appear well. She does not appear in distress either. General Appearance ED: well developed; Negative for cyanotic or diaphoretic HEENT Reports dry mucous membranes HEENT Narrative: Head is atraumatic normocephalic. Ears normal. No clinical signs of basilar skull fracture. No septal deviation hematoma. No evidence of dental trauma. Posterior pharynx is normal. Mouth ED: Yes dry mucous membranes Mouth: dry mucous membranes Eyes PERRL and EOMs intact bilaterally General Eye ED: Negative for pale conjunctiva or scleral icterus Neck no lymphadenopathy, supple and no JVD Neck Narrative: No posterior midline neck pain and full active range of motion without pain. Chest Wall inspection of chest normal and palpation of chest normal Resp normal respiratory effort and clear to auscultation bilaterally Cardio regular rate, regular rhythm, S1 normal heart sound and S2 normal heart sound; Negative for no murmurs GI normal to inspection, nondistended, normoactive bowel sounds, non-tender, non-distended and no masses; Negative for hepatosplenomegaly Back/Spine no CVA tenderness Extremity General Extremety ED: Negative for tenderness or other findings General Extremity: Negative for other findings Neuro oriented x3, CN's II-XII intact bilaterally and no sensory deficits noted Neuro Narrative: Patient is awake but not necessarily alert. Sensorium / Orientation: Negative for alert Skin no rashes or lesions noted and no wounds MDM MDM MDM Narrative Medical decision making narrative: Protocol orders were entered. Patient had three-view x-ray of the left hip which reveals a prosthetic hip. Pelvis portion reveals that she has got a total hip arthroplasty on the left and right. There is no evidence of fracture, subluxation dislocation. Chest x-ray is suboptimal. Poor inspiratory volume rotated with no obvious effusion or infiltrate. Osseous structures appear normal. There is evidence of a large hiatal hernia. Patient informed me that she has a hiatal hernia. Patient does have an Apple Watch on and does have the health haresh. Review of her heart rate reveals no evidence of any obvious dysrhythmia. She has an average walking heart rate of 112. Her resting heart rate is in the mid to upper 60s. Will obtain CBC to assess H&H and white count with differential. BMP to assess BUN and creatinine since clinically she appears dehydrated to evaluate for renal failure. Also to assess glucose CO2 anion gap since she is diabetic. Since patient does appear dehydrated 1 L of normal saline was ordered. Orthostatics were also ordered. History & Record Review Additional record(s) reviewed:: Prior inpatient record, Prior ED visit, Prior labs and Other (Patient was last scoped by Dr. Hall in 2019. She has not been scoped since per our records.) Lab Data Attestation: I reviewed the patient's lab results. Lab results narrative: White count is elevated 18,800 with a slight shift. There is no bandemia. BUN and creatinine are elevated at 42 and 1.35 with an estimated GFR of 40 and a BUN/creatinine ratio of 31:1.Hemoglobin is elevated compared to December 13, 2023 which may be due to dehydration. BUN and creatinine are elevated compared to December 04. At that time they were 29 and 0.97. GFR at that time was 59. Labs: Laboratory Results - last 24 hr 12/17/23 12/17/23 14:25 15:15 WBC 18.8 H RBC 5.11 Hgb 14.9 Hct 44.7 MCV 87.5 MCH 29.2 MCHC 33.3 RDW Std Deviation 42.5 RDW Coeff of Basilio 13.3 Plt Count 503 H MPV 10.3 Immature Gran % (Auto) 2.600 H Neut % (Auto) 79.8 H Lymph % (Auto) 8.5 L [place] % (Auto) 8.4 Eos % (Auto) 0.3 Baso % (Auto) 0.4 Absolute Neuts (auto) 15.0 H Absolute Lymphs (auto) 1.59 Nucleated RBC % 0 Differential Comment SCANNED Diff Path Review May foll Sodium 132 L Potassium 3.7 Chloride 90 L Carbon Dioxide 34.0 H Anion Gap 8 BUN 42 H Creatinine 1.35 H Estim Creat Clear Calc 35.47 Est GFR (MDRD) Af Amer 48 L Est GFR (MDRD) Non-Af 40 L BUN/Creatinine Ratio 31.1 H Glucose 268 H Lactic Acid 1.8 Calcium 10.1 Radiography Chest X-Ray - ED: Read by ED Physician (The chest x-ray and pelvic x-ray documented in the MDM portion of the EMR. The KUB reveals the NG to be in proper position. The tip of the NG is in the hiatal hernia. There is no other abnormality noted per my independent review.) Diagnostic Testing: Clinical Impression(s) from Imaging Studies Hip/Pelvis X-Ray 12/17/23 14:32 IMPRESSION: Bilateral hip arthroplasty with normal alignment and postoperative changes partially visualized in the lower lumbar spine. No acute fracture or dislocation is identified. Electronically Signed: Daniel StallingsBrain Da SilvamonroeDO judy at 15:25 EDT , Chest X-Ray 12/17/23 14:34 IMPRESSION: Large hiatal hernia present. No acute findings are otherwise identified. Electronically Signed: Daniel StallingsBrain Ramey DO at 15:24 EDT , KUB X-Ray 12/17/23 15:47 IMPRESSION: There is a feeding tube/ nasogastric tube noted. The tip is in the region of the stomach which is within a hiatal hernia. Electronically Signed: Donny Dai MD at 16:07 EDT , I was informed that patient was happy and an NG need to be placed and was anxious. She received 0.5 mg of Ativan IV push. Patient's NG is consistent with GI bleed. Will treat with Protonix. EKG Initial EKG: Attestation: I personally reviewed and interpreted this EKG as follows: Interpretation: Sinus Rhythm (Rate is 79. Patient does meet voltage criteria for LVH. Parables 186 ms. Cures duration 88 ms. QT duration 358 ms. [place] is normal.) Management Discussion w/another healthcare provider: Hospitalist (Hospitalist made aware of patient's history physical recent admission. Patient to be admitted to PCU.) Treatment and Re-Evaluation :: Patient and requested medication for her chronic bilateral hip pain. IV morphine was ordered. Discharge Plan Triage Chief Complaint: Syncope ED Provider: LeoncioBaljeet Dx/Rx/DC Orders Clinical Impression: Acute upper GI bleed, History of pulmonary embolism, Essential hypertension, Hyperlipidemia, Syncope due to orthostatic hypotension, Acute dehydration, Acute prerenal azotemia, Anticoagulant long-term use Prescriptions: No Action omeprazole 20 mg capsule,delayed release(DR/EC) 20 mg PO DAILY simvastatin 20 mg tablet 20 mg PO QHS 90 Days Qty: 90 insulin glargine [Lantus Solostar U-100 Insulin] 100 unit/mL (3 mL) insulin pen 40 unit subcut QAM d-mannose 500 mg capsule 500 mg PO DAILY spironolactone 25 mg tablet 25 mg PO DAILY Qty: 90 3RF metolazone 5 mg tablet 5 mg PO DAILY (DME) POCKET CHAMBER Spacer See Rx Instructions .ROUTE .MEDSUPPLY Qty: 1 0RF Rx Instructions: As directed levothyroxine 100 mcg tablet 100 mcg PO DAILY prednisone 20 mg tablet 40 mg PO DAILY Qty: 10 0RF azithromycin 500 mg tablet 500 mg PO DAILY 3 Days Qty: 3 0RF pramipexole 0.75 mg tablet 0.75 mg PO BID furosemide 40 mg tablet 40 mg PO .BIDLX potassium chloride 20 mEq tablet,ER particles/crystals 20 meq PO DAILY albuterol sulfate 90 mcg/actuation HFA aerosol inhaler 2 puff inhalation Q6H PRN (Reason: shortness of breath or wheezing) Eliquis 5 mg tablet 5 mg PO BID Qty: 60 12RF Primary Care Provider: Gael Garza Referrals: Gael Garza DO [Primary Care Provider] - Print Language: French Disposition Disposition: Acute Care Hospital [facility]
[2023-12-17 15:02] LABS: Anion Gap 8 (5-15); BUN 42 mg/dL (7-18); BUN/Creat Ratio 31.1 RATIO (10-20); Calcium,Total 10.1 mg/dL (8.5-10.1); Chloride 90 mmol/L (98-107); Creatinine, Serum 1.35 mg/dL (0.55-1.02); EST Glomerular Filtration Rate 40 mL/min (>60); Est Glom Filt Rate - Afr Amer 48 mL/min (>60); Estimated Creatinine Clearance 35.47 ml/min; Glucose 268 mg/dL (74-106); Potassium 3.7 mmol/L (3.5-5.1); Sodium Level 132 mmol/L (136-145)
[2023-12-17 15:14] LABS: Differential Comment SCANNED
[2023-12-17] MEDS: Oxymetazoline 0.05% 1 SPRAY SPRAY.BTL 2 SPRAY NASAL (15:18)
[2023-12-17] MEDS: 0.9% Normal Saline (1000mL) 1,000 ML 999 ML IV (15:18)
[2023-12-17] MEDS: LORazepam 2 MG/ML Syringe 0.5 MG IV (15:24)
--- NOTE | 2023-12-17 15:47 | RAD_ITS ---
EXAM: XR ABDOMEN, 1 VIEW CLINICAL INDICATION: tube placement TECHNIQUE: Frontal supine view of the abdomen/pelvis. COMPARISON: Study done earlier today. FINDINGS: LOWER THORAX: Hiatal hernia. GASTROINTESTINAL TRACT: See findings above and below. ORGANS: Unremarkable as visualized. No organomegaly. No abnormal calcifications. BONES/JOINTS: Lumbar spinal fixation hardware. Degenerative findings in the lumbar spine. SOFT TISSUES: No acute pathology. TUBES, LINES AND DEVICES: There is a feeding tube/ nasogastric tube noted. The tip is in the region of the stomach which is within a hiatal hernia. RAD/Abdomen Single View (Portable) IMPRESSION: There is a feeding tube/ nasogastric tube noted. The tip is in the region of the stomach which is within a hiatal hernia. Electronically Signed: Donny Dai MD at 16:07 EDT ,
[2023-12-17 15:52] LABS: Lactic Acid 1.8 mmol/L (0.4-1.9)
[2023-12-17] MEDS: Pantoprazole Sodium 80 MG in 0.9% Normal Saline (100mL Bag) 80 ML 10 MG CONT INF (16:24)
[2023-12-17] MEDS: Pantoprazole Sodium 80 MG in 0.9% Normal Saline (50mL Bag) 15 ML 420 MG IV BOLUS (16:24)
[2023-12-17] MEDS: Morphine 4 MG/ML Syringe IV (17:10)
[2023-12-17] MEDS: Ondansetron 4 MG/2 ML Vial IV (17:10)
--- NOTE | 2023-12-17 17:12 | PCM.HP.STD ---
HPI - General General Date of Admission: 12/17/23 Date of Service: 12/17/23 Chief Complaint: Syncope HPI Narrative DUNG MEEK, is a 78 F with a significant history of diabetes mellitus lymphedema, DVT, PE, hiatal hernia, hypertension, and others who present to the emergency department with syncope. Reportedly she had syncope and fell at her dining room while going to the kitchen. She denies any prodromal symptoms. Syncopal episode occurred on the same day of presentation. And on the same day of presentation patient had coffee-ground emesis. She reports taking Advil every morning; and Tylenol in the evening for chest pain secondary to hiatal hernia. Reports of recent swelling of bilateral legs secondary to lymphedema [facility] Medical History JHONY (obstructive sleep apnea) Obesity (BMI 30-39.9) Back pain History of venous thromboembolism Left-sided chest wall pain Venous insufficiency Hiatal hernia Esophageal spasm Edema JHONY (obstructive sleep apnea) History of basal cell carcinoma (BCC) History of DVT (deep vein thrombosis) Seizure disorder Osteoarthritis Essential hypertension GERD (gastroesophageal reflux disease) Parkinsons disease Lung disease Kidney disease Hypothyroidism Sleep apnea IBS (irritable bowel syndrome) Depression Asthma Obesity (BMI 30.0-34.9) Lumbar back pain Premature atrial contractions COPD (chronic obstructive pulmonary disease) Hyperlipidemia Diabetes mellitus type II, controlled History of pulmonary embolism Symptomatic bradycardia Home Medications ?Medication ?Instructions ?Recorded ?Last Taken ?Type omeprazole 20 mg capsule,delayed 20 mg PO DAILY ACID REFLUX 06/19/17 07/04/23 History release simvastatin 20 mg tablet 20 mg PO QHS cholesterol 90 days 09/01/17 07/03/23 History #90 tabs inhalational spacing device #1 ea 01/23/21 Unknown Rx (POCKET CHAMBER spacer) insulin glargine 100 unit/mL (3 90 unit subcut QAM diabetes 06/02/21 07/04/23 History mL) subcutaneous pen (Lantus Solostar U-100 Insulin) levothyroxine 100 mcg tablet 100 mcg PO DAILY THYROID 08/31/21 07/04/23 History d-mannose 500 mg capsule 500 mg PO DAILY 07/11/23 Unknown History spironolactone 25 mg tablet 25 mg PO DAILY #90 tabs 07/11/23 Unknown Rx apixaban 5 mg tablet (Eliquis) 5 mg PO BID blood thinner #60 tabs 08/03/23 11/26/23 Rx albuterol sulfate 90 mcg/actuation 2 puff inhalation Q6H PRN 08/16/23 Unknown History aerosol inhaler shortness of breath or wheezing furosemide 40 mg tablet 40 mg PO .BIDLX WATER PILL 08/16/23 Unknown History potassium chloride 20 mEq 20 meq PO DAILY 08/16/23 Unknown History tablet,extended release(part/cryst) metolazone 5 mg tablet 5 mg PO DAILY 11/08/23 Unknown History Allergy/AdvReac Type Severity Reaction Status Date / Time nitrofurantoin Allergy Hives Verified 12/17/23 14:07 macrocrystalline (From Macrodantin) tree and shrub pollen Allergy Hives Verified 12/17/23 14:07 rosuvastatin (From Crestor) AdvReac Severe Muscle Verified 12/12/23 10:21 weakness colesevelam (From WelChol) AdvReac Intermediate nausea Verified 12/17/23 14:07 nitrofurantoin (From AdvReac Intermediate Hives Verified 12/17/23 14:07 Furadantin) metformin AdvReac Unknown Gi side Verified 12/17/23 14:07 effects Family History Father CAD (coronary artery disease) Diabetes Myocardial infarction Alzheimers disease Hypertension Parkinson's disease Cancer melanoma History of blood clots Mother Diabetes AAA (abdominal aortic aneurysm) Bleeding disorder Colon cancer Thyroid disorder Brother Multiple sclerosis Skin cancer Surgical History History of tonsillectomy and adenoidectomy Hx of lumbar discectomy History of right hip replacement (~07/08/15) History of lumbar fusion (~2012) History of Belkys fundoplication Hx of hernia repair History of cholecystectomy Social History household members: spouse and none Smoking Status: Never smoker alcohol intake: never substance use type: does not use diet: diabetic and gluten free caffeine: No what type of physical activity do you participate in: none seatbelt use: always do you feel safe at home: Yes ROS ROS Narrative Pertinent positives and pertinent negatives as noted in HPI. All other systems were reviewed and are negative Vital Signs Vital Signs Vital Signs: 12/17/23 14:03 12/17/23 14:08 12/17/23 16:03 Temperature 96.7 F L Temperature Source Temporal Pulse Rate 84 74 Respiratory Rate 15 16 Blood Pressure 128/80 H 136/73 H Blood Pressure Mean 96 94 Pulse Ox 97 Weight Weight: 83.5 kg Body Mass Index (BMI) 30.6 Physical Exam Narrative Physical exam: General: Well-nourished, well-developed. Head: Normocephalic, atraumatic, no tenderness Eyes: Vision is grossly intact. EOMI ENT, no trauma, moist mucous membranes, no rhinorrhea Neck: Nontender, No thyromegaly. CVS: Regular rate and rhythm. S1-S2 present. No murmur, gallop or rub. Respiratory : clear to auscultation bilaterally, chest wall nontender Abdomen: NG tube in nostrils connected to suction. Soft, nontender, nondistended, normal bowel sounds, no masses : Deferred Back: Nontender, no CVA tenderness, no midline spinal tenderness, deformities, step-offs Extremities: Nontender full range of motion, no trauma Skin: Normal color, no trauma, abrasions Neuro: Alert, oriented, cranial nerves II through XII grossly intact. Psychiatry: Normal mood. Normal affect. Not depressed. Not anxious. Results Lab / Micro Data 12/17/23 14:25 12/17/23 14:25 Labs: Laboratory Results - last 24 hr 12/17/23 14:25: WBC 18.8 H, RBC 5.11, Hgb 14.9, Hct 44.7, MCV 87.5, MCH 29.2, MCHC 33.3, RDW Std Deviation 42.5, RDW Coeff of Basilio 13.3, Plt Count 503 H, MPV 10.3, Immature Gran % (Auto) 2.600 H, Neut % (Auto) 79.8 H, Lymph % (Auto) 8.5 L, [place] % (Auto) 8.4, Eos % (Auto) 0.3, Baso % (Auto) 0.4, Absolute Neuts (auto) 15.0 H, Absolute Lymphs (auto) 1.59, Nucleated RBC % 0, Differential Comment SCANNED, Diff Path Review August foll, Sodium 132 L, Potassium 3.7, Chloride 90 L, Carbon Dioxide 34.0 H, Anion Gap 8, BUN 42 H, Creatinine 1.35 H, Estim Creat Clear Calc 35.47, Est GFR (MDRD) Af Amer 48 L, Est GFR (MDRD) Non-Af 40 L, BUN/Creatinine Ratio 31.1 H, Glucose 268 H, Calcium 10.1 12/17/23 15:15: Lactic Acid 1.8 Imaging Radiology Impression Hip/Pelvis X-Ray 12/17/23 14:32 IMPRESSION: Bilateral hip arthroplasty with normal alignment and postoperative changes partially visualized in the lower lumbar spine. No acute fracture or dislocation is identified. Electronically Signed: Daniel StallingsBrain Ramey DO at 15:25 EDT , Chest X-Ray 12/17/23 14:34 IMPRESSION: Large hiatal hernia present. No acute findings are otherwise identified. Electronically Signed: Daniel VBrain Ramey DO at 15:24 EDT , KUB X-Ray 12/17/23 15:47 IMPRESSION: There is a feeding tube/ nasogastric tube noted. The tip is in the region of the stomach which is within a hiatal hernia. Electronically Signed: Donny Dai MD at 16:07 EDT , Assessment & Plan Assessment/Plan (1) Acute dehydration: (2) Acute prerenal azotemia: (3) Anticoagulant long-term use: (4) Essential hypertension: PLAN: Plan With history of lymphedema and on home diuretics gentle IV hydration. NG tube in nostrils; linked to low intermittent suction Trend H&H. Trend Bmp Blood pressure is not within goal. Home diuretics and spironolactone held. Trend blood pressures. As needed hydralazine IV ordered Hold anticoagulation GI consult DVT prophylaxis: SCDs ordered. Advance care planning: Discussed with patient and family advanced directives as well as CODE STATUS. Explained various CODE STATUS: FULL CODE, DNR CCA, DNR CCA with no intubation, and DNR CC- and what each meant. Patient elected to be a full code with CPR and intubation if warranted. Order was placed. 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 Time spent on discussion 16 minutes. Time spent in the patient's overall evaluation,decision-making process, review of diagnostic data, adjustment of management, discussion with other providers, nursing and ancillary staff involved in patient's care documentation, 72 minutes. Charges/Coding Visit Charges Inpatient E&M: 58596 Init Hosp L3 Procedures Hospitalists Procedures: 09709 Advncd Care Plan 30 Min
[2023-12-17] MEDS: 0.9% Normal Saline (1000mL) 1,000 ML 50 ML IV (18:51)
[2023-12-17] MEDS: Insulin Lispro 100 UNIT/ML INSULN.PEN SC (18:56)
[2023-12-17 19:09] LABS: Bedside Glucose 241 mg/dL (74-106)
[2023-12-17 22:11] LABS: Hematocrit 43.3 % (37-47); Hemoglobin 14.3 g/dL (12.0-15.0)
[2023-12-17] MEDS: Atorvastatin Calcium 10 MG Tablet PO (23:08)
[2023-12-17 23:33] LABS: Bedside Glucose 152 mg/dL (74-106)
--- NOTE | 2023-12-17 23:40 | RAD_ITS ---
EXAM: XR ABDOMEN, 1 VIEW CLINICAL INDICATION: NG PLACEMENT TECHNIQUE: Frontal supine view of the abdomen/pelvis. COMPARISON: No relevant prior studies available. FINDINGS: Transesophageal catheter likely within a large hiatal hernia with distal end kinked and tip at the caudal/distal aspect of the hernia. Enlarged cardiac silhouette. Fullness of the mediastinum. Lungs are clear. Stool throughout the colon. No bowel obstruction. Degenerative changes of the spine. RAD/Abdomen Single View (Portable) IMPRESSION: NG tube within a large hiatal hernia. Electronically Signed: Mark Belle MD at 1:05 EDT ,
[2023-12-18] MEDS: Ondansetron 4 MG/2 ML Vial IV ×2 (01:22→15:47)
--- NOTE | 2023-12-18 01:40 | RAD_ITS ---
EXAM: XR ABDOMEN, 1 VIEW CLINICAL INDICATION: NG placement TECHNIQUE: Frontal supine view of the abdomen/pelvis. COMPARISON: Single view chest 12/17/2023 FINDINGS: LOWER THORAX: See below. GASTROINTESTINAL TRACT: See below. ORGANS: Unremarkable as visualized. No organomegaly. No abnormal calcifications. BONES/JOINTS: No acute pathology. SOFT TISSUES: No acute pathology. TUBES, LINES AND DEVICES: The enteric tube is looped within a large hiatal hernia in the posterior mediastinum. RAD/Abdomen Single View (Portable) IMPRESSION: The enteric tube is looped within a large hiatal hernia in the posterior mediastinum. Electronically Signed: Donny Rousseau MD at 2:33 EDT ,
[2023-12-18] MEDS: Pantoprazole Sodium 80 MG in 0.9% Normal Saline (100mL Bag) 80 ML 10 MG CONT INF ×3 (02:18→23:07)
[2023-12-18] MEDS: Morphine 2 MG/ML Syringe IV (02:48)
[2023-12-18] MEDS: 0.9% Saline Lock 10 ML Syringe IV ×2 (02:48→15:47)
[2023-12-18 03:00] VITALS: BP 128/79; PULSE 78; RESP 16; TEMP 36.6; O2SAT 92
[2023-12-18 04:14] LABS: Absolute Lymphocyte Count 1.43 X10^3/uL (0.83-4.51); Basophil# 0.06 X10^3/uL; Basophil% 0.3 % (0-1); Eosinophil# 0.06 X10^3/uL; Eosinophils% 0.3 % (0-5); Hematocrit 41.5 % (37-47); Hemoglobin 13.7 g/dL (12.0-15.0); Lymphocyte # 1.43 X10^3/ul (0.83-4.51); Lymphocyte % 8.2 % (19-41); Mean Corpuscular Hgb 29.5 pg (27.0-32.0); Mean Corpuscular Volume 89.2 fL (81-99); Monocyte# 1.52 X10^3/uL; Monocyte% 8.7 % (0-10); NRBC Flagged by Analyzer 0 % (0-5); Neutrophil # 14.02 X10^3/uL (2.7-7.7); Neutrophil % 80.5 % (47-70); POSITIVE DIFFERENTIAL YES; Platelet Count 439 K/mm3 (150-450); RBC Distribution Width CV 13.5 % (11.6-14.6); RBC Distribution Width SD 43.8 fl (35.1-43.9); Red Blood Count 4.65 M/mm3 (4.2-5.4); White Blood Count 17.4 K/mm3 (4.4-11.0)
[2023-12-18 04:15] LABS: Differential Indicated SCAN CRITERIA MET
[2023-12-18 04:29] LABS: Anion Gap 7 (5-15); BUN 33 mg/dL (7-18); BUN/Creat Ratio 34.1 RATIO (10-20); Chloride 99 mmol/L (98-107); Creatinine, Serum 0.97 mg/dL (0.55-1.02); EST Glomerular Filtration Rate 59 mL/min (>60); Est Glom Filt Rate - Afr Amer 71 mL/min (>60); Estimated Creatinine Clearance 49.59 ml/min; Glucose 145 mg/dL (74-106); Potassium 3.6 mmol/L (3.5-5.1); Sodium Level 136 mmol/L (136-145)
[2023-12-18] MEDS: Levothyroxine 100 MCG Tablet PO (05:45)
[2023-12-18 05:58] LABS: Differential Comment SCANNED
[2023-12-18 06:08] LABS: Bedside Glucose 126 mg/dL (74-106)
[2023-12-18 08:18] VITALS: BP 112/70; PULSE 72; RESP 18; TEMP 36.7; O2SAT 91
[2023-12-18 09:32] LABS: Hematocrit 41.5 % (37-47); Hemoglobin 13.6 g/dL (12.0-15.0)
--- NOTE | 2023-12-18 10:33 | PCM.PN.HOSP ---
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) use of anticoagulants (12/17/23) Objective Data Objective Data Vital Signs: Vital Signs Temp Pulse Resp BP Pulse Ox O2 Del Method 98.0 F 72 18 112/70 91 Room Air 12/18/23 08:18 12/18/23 08:18 12/18/23 08:18 12/18/23 08:18 12/18/23 08:18 12/18/23 08:39 Oxygen Delivery Method Room Air Weight: 185 lb 12.8 oz Body Mass Index (BMI) 30.9 Intake & Output: Intake and Output for Last 24 Hours 12/16/23 12/17/23 12/18/23 23:59 23:59 23:59 Intake Total 1035 / 1035 149 / 149 Output Total Balance 1035 / 1035 129 / 129 Lab / Micro Data 12/18/23 09:20 12/18/23 04:07 Labs: Laboratory Results - last 24 hr 12/17/23 14:25: WBC 18.8 H, RBC 5.11, Hgb 14.9, Hct 44.7, MCV 87.5, MCH 29.2, MCHC 33.3, RDW Std Deviation 42.5, RDW Coeff of Basilio 13.3, Plt Count 503 H, MPV 10.3, Immature Gran % (Auto) 2.600 H, Neut % (Auto) 79.8 H, Lymph % (Auto) 8.5 L, [place] % (Auto) 8.4, Eos % (Auto) 0.3, Baso % (Auto) 0.4, Absolute Neuts (auto) 15.0 H, Absolute Lymphs (auto) 1.59, Nucleated RBC % 0, Differential Comment SCANNED, Diff Path Review August, Sodium 132 L, Potassium 3.7, Chloride 90 L, Carbon Dioxide 34.0 H, Anion Gap 8, BUN 42 H, Creatinine 1.35 H, Estim Creat Clear Calc 35.47, Est GFR (MDRD) Af Amer 48 L, Est GFR (MDRD) Non-Af 40 L, BUN/Creatinine Ratio 31.1 H, Glucose 268 H, Calcium 10.1 12/17/23 15:15: Lactic Acid 1.8 12/17/23 18:48: POC Glucose 241 H 12/17/23 21:46: Hgb 14.3, Hct 43.3 12/17/23 23:05: POC Glucose 152 H 12/18/23 04:07: WBC 17.4 H, RBC 4.65, Hgb 13.7, Hct 41.5, MCV 89.2, MCH 29.5, MCHC 33.0, RDW Std Deviation 43.8, RDW Coeff of Basilio 13.5, Plt Count 439, MPV 10.0, Immature Gran % (Auto) 2.000 H, Neut % (Auto) 80.5 H, Lymph % (Auto) 8.2 L, [place] % (Auto) 8.7, Eos % (Auto) 0.3, Baso % (Auto) 0.3, Absolute Neuts (auto) 14.0 H, Absolute Lymphs (auto) 1.43, Nucleated RBC % 0, Differential Comment SCANNED, Diff Path Review August, Sodium 136, Potassium 3.6, Chloride 99, Carbon Dioxide 30.0, Anion Gap 7, BUN 33 H, Creatinine 0.97, Estim Creat Clear Calc 49.59, Est GFR (MDRD) Af Amer 71, Est GFR (MDRD) Non-Af 59 L, BUN/Creatinine Ratio 34.1 H, Glucose 145 H, Calcium 9.0 12/18/23 05:48: POC Glucose 126 H 12/18/23 09:20: Hgb 13.6, Hct 41.5 Micro: Microbiology 12/18/23 02:50 Gastric Fluid/Contents Gastric Occult Blood - Final Occult Blood Positive Radiography Diagnostic Testing: Radiology Impression Hip/Pelvis X-Ray 12/17/23 14:32 IMPRESSION: Bilateral hip arthroplasty with normal alignment and postoperative changes partially visualized in the lower lumbar spine. No acute fracture or dislocation is identified. Electronically Signed: Daniel Ramey DO at 15:25 EDT , Chest X-Ray 12/17/23 14:34 IMPRESSION: Large hiatal hernia present. No acute findings are otherwise identified. Electronically Signed: Daniel StallingsBrain Ramey DO at 15:24 EDT , KUB X-Ray 12/17/23 15:47 IMPRESSION: There is a feeding tube/ nasogastric tube noted. The tip is in the region of the stomach which is within a hiatal hernia. Electronically Signed: Donny Dai MD at 16:07 EDT , KUB X-Ray 12/17/23 23:40 IMPRESSION: NG tube within a large hiatal hernia. Electronically Signed: Mark Belle MD at 1:05 EDT , KUB X-Ray 12/18/23 01:40 IMPRESSION: The enteric tube is looped within a large hiatal hernia in the posterior mediastinum. Electronically Signed: Donny Rousseau MD at 2:33 EDT , Physical Exam Narrative Seen and examined. Patient is pale looking, tired and fatigued. She has history of lymphedema. Chronic hiatus hernia enlarged with recurrence after dizziness fundoplication in [facility] long time ago. She follows Dr. Chow in [place] [facility]. No fever. She had a fall and syncope. Denies recent symptoms of UTI Physical exam General: Alert, Oriented x3, Cooperative HEENT: Pale conjunctiva. Atraumatic, PERRLA, EOMI, Normocephalic Oral: NG tube in the nostril. No Gingival or Mucosal Lesions/ Ulcerations Neck: Supple, No JVD, Negative Carotid Bruits Chest wall/Lungs: Air entry diminished in bilateral lung bases. No crepitation/rhonchi Cardiovascular: Regular rate, Regular Rhythm, Normal S1, Normal S2, No M/G/R Abdomen: Bowel Sounds Present, Soft, Non Tender, Non-Distended : No dysuria. No renal angle tenderness. No suprapubic tenderness. Extremities: Chronic lymphedema lower extremity and upper extremities.Capillary Refill Less than 3 Seconds Skin: No rashes, No breakdown. Dry skin Musculoskeletal: No Tenderness to Palpation of Joints or Extremities. 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 Neurological: Cranial nerves II-XII grossly intact, DTR 2+/4. No acute focal neurological deficit. Psych/Mental Status: Normal Affect, Appropriate. Assessment & Plan Assessment/Plan (1) Acute dehydration: (2) Acute prerenal azotemia: (3) Anticoagulant long-term use: (4) Essential hypertension: PLAN: Plan 78-year-old female was admitted for syncope on the day of admission. She passed out and fell at her dining room while going to the kitchen. Denies prodromal symptoms. She also had coffee ground emesis in the same day. She takes Advil in the morning and Tylenol in the evening for chest pain secondary to habitus hernia. Bilateral lower EXTR swelling due to lymphedema 1. Syncope, exact etiology unclear most likely due to GI bleed/ low BP: Chest x-ray initially reviewed and suboptimal with poor inspiratory volume. X-ray of hip and pelvis shows bilateral hip arthroplasty with no evidence of fracture or subluxation or dislocation. Resting heart rate in the mid to upper 60s but walking her to 112 on her Apple Watch. 1 L of normal saline was given in the ED for dehydration BP 112/70 heart rate 70/min. Orthostatic blood pressure did not show significant drop, systolic dropped to about 13 mm. But no significant change in heart rate. 2. Acute GI bleed, upper may be from large hiatus hernia: Stool for occult blood positive. H&H 14.9/44%. Platelet count 503,000. Serial H&H does not show significant drop. GI consulted. On IV PPI prophylaxis. Hold anticoagulation. NG tube 3. Hypertension: Home diuretics and spironolactone held. Monitor BP as needed hydralazine IV ordered 4. Chronic hiatus hernia status post Belkys's fundoplication: Chest x-ray shows large hiatal salience with tip of NG tube and hernia. 5. 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 Bilateral DVT DVT prophylaxis: SCDs ordered. Advance care planning: Discussed with patient and family advanced directives as well as CODE STATUS. Explained various CODE STATUS: FULL CODE, DNR CCA, DNR CCA with no intubation, and DNR CC- and what each meant. Patient elected to be a full code with CPR and intubation if warranted. Order was placed. 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 Microbiology Past 72 Hours 12/18/23 02:50 Gastric Fluid/Contents Gastric Occult Blood - Final Occult Blood Positive Laboratory Results 12/17/23 14:25: WBC 18.8 H, RBC 5.11, Hgb 14.9, Hct 44.7, MCV 87.5, MCH 29.2, MCHC 33.3, RDW Std Deviation 42.5, RDW Coeff of Basilio 13.3, Plt Count 503 H, MPV 10.3, Immature Gran % (Auto) 2.600 H, Neut % (Auto) 79.8 H, Lymph % (Auto) 8.5 L, [place] % (Auto) 8.4, Eos % (Auto) 0.3, Baso % (Auto) 0.4, Absolute Neuts (auto) 15.0 H, Absolute Lymphs (auto) 1.59, Nucleated RBC % 0, Differential Comment SCANNED, Diff Path Review August, Sodium 132 L, Potassium 3.7, Chloride 90 L, Carbon Dioxide 34.0 H, Anion Gap 8, BUN 42 H, Creatinine 1.35 H, Estim Creat Clear Calc 35.47, Est GFR (MDRD) Af Amer 48 L, Est GFR (MDRD) Non-Af 40 L, BUN/Creatinine Ratio 31.1 H, Glucose 268 H, Calcium 10.1 12/17/23 15:15: Lactic Acid 1.8 12/17/23 18:48: POC Glucose 241 H 12/17/23 21:46: Hgb 14.3, Hct 43.3 12/17/23 23:05: POC Glucose 152 H 12/18/23 04:07: WBC 17.4 H, RBC 4.65, Hgb 13.7, Hct 41.5, MCV 89.2, MCH 29.5, MCHC 33.0, RDW Std Deviation 43.8, RDW Coeff of Basilio 13.5, Plt Count 439, MPV 10.0, Immature Gran % (Auto) 2.000 H, Neut % (Auto) 80.5 H, Lymph % (Auto) 8.2 L, [place] % (Auto) 8.7, Eos % (Auto) 0.3, Baso % (Auto) 0.3, Absolute Neuts (auto) 14.0 H, Absolute Lymphs (auto) 1.43, Nucleated RBC % 0, Differential Comment SCANNED, Diff Path Review August, Sodium 136, Potassium 3.6, Chloride 99, Carbon Dioxide 30.0, Anion Gap 7, BUN 33 H, Creatinine 0.97, Estim Creat Clear Calc 49.59, Est GFR (MDRD) Af Amer 71, Est GFR (MDRD) Non-Af 59 L, BUN/Creatinine Ratio 34.1 H, Glucose 145 H, Calcium 9.0 12/18/23 05:48: POC Glucose 126 H 12/18/23 09:20: Hgb 13.6, Hct 41.5 Charges/Coding Visit Charges Inpatient E&M: 38860 Subs Hosp L2
[2023-12-18 10:46] VITALS: BP 139/78; PULSE 73; RESP 16; TEMP 36.7; O2SAT 92
[2023-12-18 10:49] VITALS: BP 139/78; PULSE 73; RESP 16; TEMP 36.7; O2SAT 92
[2023-12-18 12:04] LABS: Bedside Glucose 127 mg/dL (74-106)
[2023-12-18] MEDS: 0.9% Normal Saline (1000mL) 1,000 ML 50 ML IV (13:16)
[2023-12-18 16:13] LABS: Hemoglobin 13.5 g/dL (12.0-15.0)
[2023-12-18 17:21] VITALS: BP 119/64; PULSE 78; RESP 16; TEMP 36.8; O2SAT 92
[2023-12-18 18:23] LABS: Bedside Glucose 101 mg/dL (74-106)
[2023-12-18 21:00] VITALS: BP 132/86; PULSE 88; RESP 16; TEMP 36.4; O2SAT 96
[2023-12-18] MEDS: Atorvastatin Calcium 10 MG Tablet PO (21:02)
[2023-12-18] MEDS: Insulin Lispro 100 UNIT/ML INSULN.PEN SC (23:17)
[2023-12-18 23:29] LABS: Bedside Glucose 249 mg/dL (74-106)
[2023-12-19] VITALS (11 sets, daily range): BP systolic 111–126; BP diastolic 58–74; PULSE 66–88; RESP 14–18; TEMP 36.1–36.9; O2SAT 94–99; BMI 30.9
[2023-12-19 05:38] LABS: Absolute Lymphocyte Count 1.18 X10^3/uL (0.83-4.51); Absolute Neutrophil Count 8.9 X10^3/uL (2.0-7.7); Basophil# 0.02 X10^3/uL; Basophil% 0.2 % (0-1); Eosinophil# 0.11 X10^3/uL; Eosinophils% 0.9 % (0-5); Hematocrit 36.9 % (37-47); Hemoglobin 12.1 g/dL (12.0-15.0); Lymphocyte # 1.18 X10^3/ul (0.83-4.51); Lymphocyte % 10.1 % (19-41); Mean Corp Hgb Conc 32.8 g/dL (32-36); Mean Corpuscular Hgb 29.7 pg (27.0-32.0); Mean Corpuscular Volume 90.4 fL (81-99); Monocyte# 1.21 X10^3/uL; Monocyte% 10.4 % (0-10); NRBC Flagged by Analyzer 0 % (0-5); Neutrophil # 8.92 X10^3/uL (2.7-7.7); Neutrophil % 76.7 % (47-70); Platelet Count 341 K/mm3 (150-450); RBC Distribution Width CV 13.5 % (11.6-14.6); Red Blood Count 4.08 M/mm3 (4.2-5.4); White Blood Count 11.6 K/mm3 (4.4-11.0)
[2023-12-19 06:04] LABS: Bedside Glucose 151 mg/dL (74-106)
[2023-12-19 06:10] LABS: Anion Gap 5 (5-15); BUN 23 mg/dL (7-18); BUN/Creat Ratio 27.1 RATIO (10-20); Calcium,Total 8.5 mg/dL (8.5-10.1); Chloride 102 mmol/L (98-107); Creatinine, Serum 0.85 mg/dL (0.55-1.02); EST Glomerular Filtration Rate 68 mL/min (>60); Est Glom Filt Rate - Afr Amer 83 mL/min (>60); Estimated Creatinine Clearance 56.59 ml/min; Glucose 183 mg/dL (74-106); Potassium 3.4 mmol/L (3.5-5.1); Sodium Level 135 mmol/L (136-145)
--- NOTE | 2023-12-19 07:52 | PCM.PN.HOSP ---
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) use of anticoagulants (12/17/23) Objective Data Objective Data Vital Signs: Vital Signs Temp Pulse Resp BP Pulse Ox O2 Del Method 97.8 F 66 18 126/61 H 94 Room Air 12/19/23 05:40 12/19/23 05:40 12/19/23 05:40 12/19/23 05:40 12/19/23 05:40 12/19/23 05:40 Oxygen Delivery Method Room Air Weight: 185 lb 12.784 oz Body Mass Index (BMI) 30.9 Intake & Output: Intake and Output for Last 24 Hours 12/17/23 12/18/23 12/19/23 23:59 23:59 23:59 Intake Total 1035 / 1035 1389.83 / 1869.83 480 / 480 Output Total 420 / 420 Balance 1035 / 1035 969.83 / 1449.83 480 / 480 Lab / Micro Data 12/19/23 05:12 12/19/23 05:12 Labs: Laboratory Results - last 24 hr 12/18/23 09:20: Hgb 13.6, Hct 41.5 12/18/23 11:47: POC Glucose 127 H 12/18/23 16:00: Hgb 13.5, Hct 42.0 12/18/23 18:04: POC Glucose 101 12/18/23 23:11: POC Glucose 249 H 12/19/23 05:12: WBC 11.6 H, RBC 4.08 L, Hgb 12.1, Hct 36.9 L, MCV 90.4, MCH 29.7, MCHC 32.8, RDW Std Deviation 45.0 H, RDW Coeff of Basilio 13.5, Plt Count 341, MPV 10.0, Immature Gran % (Auto) 1.700 H, Neut % (Auto) 76.7 H, Lymph % (Auto) 10.1 L, [place] % (Auto) 10.4 H, Eos % (Auto) 0.9, Baso % (Auto) 0.2, Absolute Neuts (auto) 8.9 H, Absolute Lymphs (auto) 1.18, Nucleated RBC % 0, Sodium 135 L, Potassium 3.4 L, Chloride 102, Carbon Dioxide 28.0, Anion Gap 5, BUN 23 H, Creatinine 0.85, Estim Creat Clear Calc 56.59, Est GFR (MDRD) Af Amer 83, Est GFR (MDRD) Non-Af 68, BUN/Creatinine Ratio 27.1 H, Glucose 183 H, Hemoglobin A1c 10.0 H, Calcium 8.5, TSH 2.810 12/19/23 05:35: POC Glucose 151 H Micro: Microbiology 12/18/23 02:50 Gastric Fluid/Contents Gastric Occult Blood - Final Occult Blood Positive Physical Exam Narrative Seen and examined. NG tube was removed yesterday as it was in hiatus hernia sac coiled not working. Looks tired and fatigued. She has history of lymphedema. Chronic hiatus hernia enlarged with recurrence after dizziness fundoplication in [facility] long time ago. She follows Dr. Chow in [facility] gastroenterology. No fever. She had a fall and syncope. Denies recent symptoms of UTI Physical exam General: Alert, Oriented x3, Cooperative HEENT: Pale conjunctiva. Atraumatic, PERRLA, EOMI, Normocephalic Oral: Oral mucosa dry. No Gingival or Mucosal Lesions/ Ulcerations Neck: Supple, No JVD, Negative Carotid Bruits Chest wall/Lungs: Air entry diminished in bilateral lung bases. No crepitation/rhonchi Cardiovascular: Regular rate, Regular Rhythm, Normal S1, Normal S2, No M/G/R Abdomen: Bowel Sounds Present, Soft, Non Tender, Non-Distended : No dysuria. No renal angle tenderness. No suprapubic tenderness. Extremities: Chronic lymphedema lower extremity and upper extremities.Capillary Refill Less than 3 Seconds Skin: No rashes, No breakdown. Dry skin Musculoskeletal: No Tenderness to Palpation of Joints or Extremities. 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 Neurological: Cranial nerves II-XII grossly intact, DTR 2+/4. No acute focal neurological deficit. Psych/Mental Status: Flat affect. Assessment & Plan Assessment/Plan (1) Acute dehydration: (2) Acute prerenal azotemia: (3) Anticoagulant long-term use: (4) Essential hypertension: PLAN: Plan 78-year-old female was admitted for syncope on the day of admission. She passed out and fell at her dining room while going to the kitchen. Denies prodromal symptoms. She also had coffee ground emesis in the same day. She takes Advil in the morning and Tylenol in the evening for chest pain secondary to habitus hernia. Bilateral lower EXTR swelling due to lymphedema 1. Syncope, exact etiology unclear most likely due to GI bleed/ low BP: Chest x-ray initially reviewed and suboptimal with poor inspiratory volume. X-ray of hip and pelvis shows bilateral hip arthroplasty with no evidence of fracture or subluxation or dislocation. Resting heart rate in the mid to upper 60s but walking her to 112 on her Apple Watch. 1 L of normal saline was given in the ED for dehydration BP 112/70 heart rate 70/min. Orthostatic blood pressure did not show significant drop, systolic dropped to about 13 mm. But no significant change in heart rate. 12/18: Mild hypokalemia potassium 3.4. Sodium 135, hyponatremia: IV fluid and electrolytes are getting replaced. Discussed with the nursing staff 2. Acute GI bleed, upper may be from large hiatus hernia: Stool for occult blood positive. H&H 14.9/44%. Platelet count 503,000. Serial H&H does not show significant drop. GI consulted. On IV PPI prophylaxis. Hold anticoagulation. NG tube 12/18: NG tube was almost out yesterday in hiatus hernia sac therefore was removed. Plan for EGD today. Discussed with the technical project coordinator Dr. Ivey. 3. Hypertension: Home diuretics and spironolactone held. Monitor BP as needed hydralazine IV ordered 4. Chronic hiatus hernia status post Belkys's fundoplication: Chest x-ray shows large hiatal salience with tip of NG tube and hernia. 5. 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 Bilateral DVT. DVT prophylaxis: SCDs ordered. Advance care planning: Discussed with patient and family advanced directives as well as CODE STATUS. Explained various CODE STATUS: FULL CODE, DNR CCA, DNR CCA with no intubation, and DNR CC- and what each meant. Patient elected to be a full code with CPR and intubation if warranted. Order was placed. 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 12/18/23 09:20: Hgb 13.6, Hct 41.5 12/18/23 11:47: POC Glucose 127 H 12/18/23 16:00: Hgb 13.5, Hct 42.0 12/18/23 18:04: POC Glucose 101 12/18/23 23:11: POC Glucose 249 H 12/19/23 05:12: WBC 11.6 H, RBC 4.08 L, Hgb 12.1, Hct 36.9 L, MCV 90.4, MCH 29.7, MCHC 32.8, RDW Std Deviation 45.0 H, RDW Coeff of Basilio 13.5, Plt Count 341, MPV 10.0, Immature Gran % (Auto) 1.700 H, Neut % (Auto) 76.7 H, Lymph % (Auto) 10.1 L, [place] % (Auto) 10.4 H, Eos % (Auto) 0.9, Baso % (Auto) 0.2, Absolute Neuts (auto) 8.9 H, Absolute Lymphs (auto) 1.18, Nucleated RBC % 0, Sodium 135 L, Potassium 3.4 L, Chloride 102, Carbon Dioxide 28.0, Anion Gap 5, BUN 23 H, Creatinine 0.85, Estim Creat Clear Calc 56.59, Est GFR (MDRD) Af Amer 83, Est GFR (MDRD) Non-Af 68, BUN/Creatinine Ratio 27.1 H, Glucose 183 H, Hemoglobin A1c 10.0 H, Calcium 8.5, TSH 2.810 12/19/23 05:35: POC Glucose 151 H Charges/Coding Visit Charges Inpatient E&M: 99801 Subs Hosp L2
[2023-12-19 08:13] LABS: Magnesium 2.4 mg/dL (1.6-2.6); Phosphorus 1.9 mg/dL (2.5-4.9)
[2023-12-19] MEDS: Potassium Chloride 10mEq/100mL 10 MEQ/100 ML IV.SOLN. 100 MEQ IV BOLUS ×4 (08:21→13:13)
[2023-12-19] MEDS: Ondansetron 4 MG/2 ML Vial IV (08:21)
[2023-12-19] MEDS: Pantoprazole Sodium 80 MG in 0.9% Normal Saline (100mL Bag) 80 ML 10 MG CONT INF ×2 (09:52→20:42)
[2023-12-19 11:38] LABS: Bedside Glucose 145 mg/dL (74-106)
[2023-12-19] MEDS: Metoclopramide 10 MG/2 ML Vial IV ×3 (11:43→23:52)
--- NOTE | 2023-12-19 12:37 | EX.PCM.CON.G ---
HPI Consult Data Date of Consult: 12/19/23 HPI Narrative Reason for Consultation: Coffee-ground emesis HPI Narrative: DUNG MEEK, is a 78 F with a significant history of diabetes mellitus lymphedema, DVT, PE, hiatal hernia, hypertension, and others who present to the emergency department with syncope. Reportedly she had syncope and fell at her dining room while going to the kitchen. She denies any prodromal symptoms. She admits to a syncopal episode occurred on the same day of presentation. Also, on the same day of presentation patient had coffee-ground emesis. She reports taking Advil every morning; and Tylenol in the evening for chest pain secondary to hiatal hernia. She has a chronic hiatus hernia enlarged with recurrence after dizziness fundoplication in [facility] long time ago. She follows Dr. Chow in [facility] gastroenterology. Reports of recent swelling of bilateral legs secondary to lymphedema [facility] Medical History JHONY (obstructive sleep apnea) Obesity (BMI 30-39.9) Back pain History of venous thromboembolism Left-sided chest wall pain Venous insufficiency Hiatal hernia Esophageal spasm Edema JHONY (obstructive sleep apnea) History of basal cell carcinoma (BCC) History of DVT (deep vein thrombosis) Seizure disorder Osteoarthritis Essential hypertension GERD (gastroesophageal reflux disease) Parkinsons disease Lung disease Kidney disease Hypothyroidism Sleep apnea IBS (irritable bowel syndrome) Depression Asthma Obesity (BMI 30.0-34.9) Lumbar back pain Premature atrial contractions COPD (chronic obstructive pulmonary disease) Hyperlipidemia Diabetes mellitus type II, controlled History of pulmonary embolism Symptomatic bradycardia Home Medications ?Medication ?Instructions ?Recorded ?Last Taken ?Type omeprazole 20 mg capsule,delayed 20 mg PO DAILY ACID REFLUX 06/19/17 07/04/23 History release simvastatin 20 mg tablet 20 mg PO QHS cholesterol 90 days 09/01/17 07/03/23 History #90 tabs inhalational spacing device #1 ea 01/23/21 Unknown Rx (POCKET CHAMBER spacer) insulin glargine 100 unit/mL (3 90 unit subcut QAM diabetes 06/02/21 07/04/23 History mL) subcutaneous pen (Lantus Solostar U-100 Insulin) levothyroxine 100 mcg tablet 100 mcg PO DAILY THYROID 08/31/21 07/04/23 History d-mannose 500 mg capsule 500 mg PO DAILY 07/11/23 Unknown History spironolactone 25 mg tablet 25 mg PO DAILY #90 tabs 07/11/23 Unknown Rx apixaban 5 mg tablet (Eliquis) 5 mg PO BID blood thinner #60 tabs 08/03/23 11/26/23 Rx albuterol sulfate 90 mcg/actuation 2 puff inhalation Q6H PRN 08/16/23 Unknown History aerosol inhaler shortness of breath or wheezing furosemide 40 mg tablet 40 mg PO .BIDLX WATER PILL 08/16/23 Unknown History potassium chloride 20 mEq 20 meq PO DAILY 08/16/23 Unknown History tablet,extended release(part/cryst) metolazone 5 mg tablet 5 mg PO DAILY 11/08/23 Unknown History Allergy/AdvReac Type Severity Reaction Status Date / Time nitrofurantoin Allergy Hives Verified 12/17/23 14:07 macrocrystalline (From Macrodantin) tree and shrub pollen Allergy Hives Verified 12/17/23 14:07 rosuvastatin (From Crestor) AdvReac Severe Muscle Verified 12/12/23 10:21 weakness colesevelam (From WelChol) AdvReac Intermediate nausea Verified 12/17/23 14:07 nitrofurantoin (From AdvReac Intermediate Hives Verified 12/17/23 14:07 Furadantin) metformin AdvReac Unknown Gi side Verified 12/17/23 14:07 effects Family History Father CAD (coronary artery disease) Diabetes Myocardial infarction Alzheimers disease Hypertension Parkinson's disease Cancer melanoma History of blood clots Mother Diabetes AAA (abdominal aortic aneurysm) Bleeding disorder Colon cancer Thyroid disorder Brother Multiple sclerosis Skin cancer Surgical History History of tonsillectomy and adenoidectomy Hx of lumbar discectomy History of right hip replacement (~07/08/15) History of lumbar fusion (~2012) History of Belkys fundoplication Hx of hernia repair History of cholecystectomy Social History household members: spouse and none Smoking Status: Never smoker alcohol intake: never substance use type: does not use diet: diabetic and gluten free caffeine: No what type of physical activity do you participate in: none seatbelt use: always do you feel safe at home: Yes ROS ROS Narrative Review of systems: General: Patient denies fever, chills or weight gain. HENT: Denies headache, denies stuffy nose, denies sore throat EYES: Denies changes in vision or discharge from eyes. Resp: Patient admits to pleuritic chest pain made worse with cough productive of yellowish-white sputum along with dyspnea on exertion that progressed to shortness of breath at rest with wheezing as per HPI. Cardiac: Patient admits to pleuritic chest pain but denies palpitations or heart racing. GI: Denies abdominal pain, denies changes in bowel, denies nausea or vomiting. : Denies changes in urination Ext: Denies swelling Msk: Feels somewhat generally weak and unwell Neuro: Patient denies headache, paresthesias or focal neurologic deficits. Heme: Denies any bleeding or bruising Skin: Denies rashes Psych: No complaints voiced related uncontrolled depression or anxiety. Endocrine: No polyuria, polydipsia or polyphagia. The rest of the 14 point ROS was negative except for positives in HPI. Physical Exam Narrative Seen and examined. No fever. She had a fall and syncope. Denies recent symptoms of UTI Physical exam General: Alert, Oriented x3, Cooperative HEENT: Pale conjunctiva. Atraumatic, PERRLA, EOMI, Normocephalic Oral: Oral mucosa dry. No Gingival or Mucosal Lesions/ Ulcerations Neck: Supple, No JVD, Negative Carotid Bruits Chest wall/Lungs: Air entry diminished in bilateral lung bases. No crepitation/rhonchi Cardiovascular: Regular rate, Regular Rhythm, Normal S1, Normal S2, No M/G/R Abdomen: Bowel Sounds Present, Soft, Non Tender, Non-Distended : No dysuria. No renal angle tenderness. No suprapubic tenderness. Extremities: Chronic lymphedema lower extremity and upper extremities.Capillary Refill Less than 3 Seconds Skin: No rashes, No breakdown. Dry skin Musculoskeletal: No Tenderness to Palpation of Joints or Extremities. 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 Neurological: Cranial nerves II-XII grossly intact, DTR 2+/4. No acute focal neurological deficit. Psych/Mental Status: Flat affect. Lab / Micro Data 12/19/23 05:12 12/19/23 05:12 Labs: Laboratory Results - last 24 hr 12/18/23 16:00: Hgb 13.5, Hct 42.0 12/18/23 18:04: POC Glucose 101 12/18/23 23:11: POC Glucose 249 H 12/19/23 05:12: WBC 11.6 H, RBC 4.08 L, Hgb 12.1, Hct 36.9 L, MCV 90.4, MCH 29.7, MCHC 32.8, RDW Std Deviation 45.0 H, RDW Coeff of Basilio 13.5, Plt Count 341, MPV 10.0, Immature Gran % (Auto) 1.700 H, Neut % (Auto) 76.7 H, Lymph % (Auto) 10.1 L, [place] % (Auto) 10.4 H, Eos % (Auto) 0.9, Baso % (Auto) 0.2, Absolute Neuts (auto) 8.9 H, Absolute Lymphs (auto) 1.18, Nucleated RBC % 0, Sodium 135 L, Potassium 3.4 L, Chloride 102, Carbon Dioxide 28.0, Anion Gap 5, BUN 23 H, Creatinine 0.85, Estim Creat Clear Calc 56.59, Est GFR (MDRD) Af Amer 83, Est GFR (MDRD) Non-Af 68, BUN/Creatinine Ratio 27.1 H, Glucose 183 H, Hemoglobin A1c 10.0 H, Calcium 8.5, Phosphorus 1.9 L, Magnesium 2.4, TSH 2.810 12/19/23 05:35: POC Glucose 151 H 12/19/23 11:18: POC Glucose 145 H Assessment & Plan Assessment/Plan (1) Acute dehydration: (2) Acute prerenal azotemia: (3) Anticoagulant long-term use: (4) Essential hypertension: PLAN: Plan 78-year-old female was admitted for syncope on the day of admission. She passed out and fell at her dining room while going to the kitchen. She also had coffee ground emesis. 1. Syncope, exact etiology unclear most likely due to GI bleed/ low BP: She will undergo an upper endoscopy to evaluate upper GI tract. 2. Acute GI bleed, upper may be from large hiatus hernia: Stool for occult blood positive. H&H 14.9/44%. Platelet count 503,000. Serial H&H does not show significant drop. She is on IV PPI prophylaxis. Hold anticoagulation. She was explained alternatives, risk, benefits include not withstanding bleeding, infection, sepsis, perforation, need for surgery . She will have an ASA of 3. Charges/Coding Visit Charges Inpatient E&M: 62901 Init Hosp L3
--- NOTE | 2023-12-19 12:39 | PRE.ANES_ITS ---
ASA Classification* ASA Classification ASA Classification: 3 Assessment & Plan Anesthesia* Anesthesia Assessment Anesthesia Assessment: Discussed sedation and/or anesthesia options, risks, benefits, and alternatives with patient/parents/legal guardian/POA. Questions invited. The patient/parents/legal guardian/POA seems to understand and agrees to proceed with anesthesia plan. Reviewed the physical assessment, medical history, allergy history and patient home medications list prior to surgery/procedure/anesthetic and documented any changes. Performed airway and anesthesia risk assessments. Anesthesia Type Anesthesia Type: MAC History Source History Obtained from:: Patient and Chart Anesthesia Focused Assessment* Temperature: 98.1 F Pulse Rate: 73 Blood Pressure: 125/58 Respiratory Rate: 16 Pulse Ox: 96 Airway Assessment Mouth opens: >3 cm Mallampati Score: II Focused Labs Anesthesia Preop lab: CBC WBC 11.6 K/mm3 (4.4-11.0) H 12/19/23 05:12 RBC 4.08 M/mm3 (4.2-5.4) L 12/19/23 05:12 Hgb 12.1 g/dL (12.0-15.0) 12/19/23 05:12 Hct 36.9 % (37-47) L 12/19/23 05:12 Plt Count 341 K/mm3 (150-450) 12/19/23 05:12 CHEMISTRY Potassium 3.4 mmol/L (3.5-5.1) L 12/19/23 05:12 Sodium 135 mmol/L (136-145) L 12/19/23 05:12 Magnesium 2.4 mg/dL (1.6-2.6) 12/19/23 05:12 Phosphorus 1.9 mg/dL (2.5-4.9) L 12/19/23 05:12 BUN 23 mg/dL (7-18) H 12/19/23 05:12 Creatinine 0.85 mg/dL (0.55-1.02) 12/19/23 05:12 Glucose 183 mg/dL (74-106) H 12/19/23 05:12 POC Glucose 145 mg/dL (74-106) H 12/19/23 11:18 TSH 2.810 uIU/mL (0.358-3.740) 12/19/23 05:12 COAG PT 12.4 SECONDS (11.7-14.9) 02/15/23 19:20 Pre-Assessment Diagnosis/Proposed Procedure Planned Operative Procedure(s): EGD Anesthesia History Anesthesia History - mother baby rn: Anesthesia History - mother baby rn Hx Hospitalization No 05/15/20 14:27 Any Problems With Anesthesia Yes: Post back surgery pt 12/19/23 05:40 went into AFIB Cholinesterase deficiency No 12/19/23 05:40 You/Your Family Experience No 12/19/23 05:40 fever (hyperthermia) with Relationship Recent Exposure to Contagious No 12/19/23 05:40 Disease Does patient have nerve No 12/19/23 05:40 stimulator Patient instructed to have device shut off --Does patient have Pacemaker No 12/19/23 11:55 or ICD? When Was Last Pacemaker Check QUESTION #4 FULL TEXT: You/Your Family Experience fever (hyperthermia) with Anesthesia Last Oral Intake Last Oral intake: Last Oral Intake NPO since 00:00 12/19/23 11:55 Meds taken in AM with sips of No 12/19/23 11:55 water? Meds patient instructed to take am of surgery PONV PONV - mother baby rn: PONV - mother baby rn Female HX of Motion Sickness HX of N/V After Surgery Non-Smoker Duration of Surgery greater than 60 minutes Number of Risk Factors PONV Score Height & Weight Height & Weight: Anesthesia: Height & Weight Height 5 ft 5 in 12/19/23 11:55 Weight: 84.277 kg 12/19/23 11:55 Body Mass Index (BMI) 30.9 12/19/23 11:55 Respiratory Assessment Respiratory Assessment - mother baby rn: Respiratory Tract Infection Hx - mother baby rn Hx Respiratory Tract Infection No 12/19/23 05:40 STOP Sleep Apnea STOP Sleep Apnea - mother baby rn: STOP Sleep Apnea - mother baby rn Hx Hypertension No 12/17/23 18:23 Hx Sleep Apnea No 12/17/23 18:23 CPAP Yes 12/03/23 23:45 BIPAP No 12/03/23 23:45 Do you snore loudly (louder No 12/17/23 18:23 than talking or can be heard Do you often feel tired/ No 12/17/23 18:23 fatigued/ sleepy during daytime? Has anyone observed you stop No 12/17/23 18:23 breathing during sleep? STOP Results Negative 12/17/23 18:23 QUESTION #5 FULL TEXT : Do you snore loudly (louder than talking or can be heard through closed doors)? 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 Specify any problems Hx of Preganancy in last 3 No 12/17/23 18:23 Months Nurse Filling Out Transfusion ZBEAM 12/17/23 18:23 & Questions: Date: 12/17/23 12/17/23 18:23 Time: 18:27 12/17/23 18:23 Patient unable to answer at this time (ie. confused, unrespo /Reproduction History /Reproductive History - mother baby rn: /Reproductive Hx- mother baby rn Hx Now No 12/19/23 05:40 Gestational Age (in weeks): EDC: Hx Hx Para Hx Section SAB No 12/19/23 05:40 Active Medications Active Medications: Current Medications Generic Name Dose Route Start Last Admin Trade Name Freq PRN Reason Stop Dose Admin Albuterol Sulfate 2.5 mg 12/17/23 22:05 Albuterol 2.5 Mg/3 Ml Vial.Neb. INHALATION Q2H PRN PRN SOB/WHEEZING Atorvastatin Calcium 10 mg 12/17/23 22:00 12/18/23 21:02 Atorvastatin Calcium 10 Mg Tablet PO 10 mg QHS JCARLOS Administration Glucagon 1 mg 12/17/23 18:21 Glucagon 1 Mg/Ml Syringe IM X1 PRN Hypoglycemia Protocol Hydralazine HCl 5 mg 12/18/23 10:47 Hydralazine 20 Mg/Ml Vial IV Q4H PRN PRN SBP > 180 Protocol Pantoprazole Sodium 80 mg/ 100 mls @ 10 mls/hr 12/17/23 15:45 12/19/23 09:52 Sodium Chloride CONT INF 10 mls/hr Q10H JCARLOS Administration Dextrose 250 mls @ 0 mls/hr 12/17/23 18:21 Dextrose 10%-Water IV .Q0M PRN HYPOGLYCEMIA Protocol As Directed Insulin Glargine 60 unit 12/18/23 10:00 12/19/23 10:25 Insulin Glargine-Yfgn 100 Unit/Ml Pen SC Not Given QAM [facility] Insulin Human Lispro 0 unit 12/17/23 18:21 12/19/23 11:18 Insulin Lispro 100 Unit/Ml Insuln.Pen SC Not Given Q6 [facility] Protocol Levothyroxine Sodium 100 mcg 12/18/23 06:00 12/19/23 05:37 Levothyroxine 100 Mcg Tablet PO Not Given 0600 [facility] Melatonin 3 mg 12/17/23 18:21 Melatonin 3 Mg Tablet PO QHS PRN PRN INSOMNIA Metoclopramide HCl 5 mg 12/19/23 11:30 Metoclopramide 10 Mg/2 Ml Vial IV Q6H PRN PRN NAUSEA/VOMITING Ondansetron HCl 4 mg 12/17/23 18:21 12/19/23 08:21 Ondansetron 4 Mg/2 Ml Vial IV 4 mg Q8H PRN PRN Administration NAUSEA/VOMITING Senna/Docusate Sodium 2 tablet 12/17/23 18:21 Senna/Docusate Sodium 1 Tablet PO BID PRN PRN Constipation Sodium Chloride 10 - 40 ml 12/17/23 18:31 12/18/23 15:47 0.9% Saline Lock 10 Ml Syringe IV 10 ml UD PRN Administration SALINE FLUSH PFSH Medical History JHONY (obstructive sleep apnea) Obesity (BMI 30-39.9) Back pain History of venous thromboembolism Left-sided chest wall pain Venous insufficiency Hiatal hernia Esophageal spasm Edema JHONY (obstructive sleep apnea) History of basal cell carcinoma (BCC) History of DVT (deep vein thrombosis) Seizure disorder Osteoarthritis Essential hypertension GERD (gastroesophageal reflux disease) Parkinsons disease Lung disease Kidney disease Hypothyroidism Sleep apnea IBS (irritable bowel syndrome) Depression Asthma Obesity (BMI 30.0-34.9) Lumbar back pain Premature atrial contractions COPD (chronic obstructive pulmonary disease) Hyperlipidemia Diabetes mellitus type II, controlled History of pulmonary embolism Symptomatic bradycardia Home Medications ?Medication ?Instructions ?Recorded ?Last Taken ?Type omeprazole 20 mg capsule,delayed 20 mg PO DAILY ACID REFLUX 06/19/17 07/04/23 History release simvastatin 20 mg tablet 20 mg PO QHS cholesterol 90 days 09/01/17 07/03/23 History #90 tabs inhalational spacing device #1 ea 01/23/21 Unknown Rx (POCKET CHAMBER spacer) insulin glargine 100 unit/mL (3 90 unit subcut QAM diabetes 06/02/21 07/04/23 History mL) subcutaneous pen (Lantus Solostar U-100 Insulin) levothyroxine 100 mcg tablet 100 mcg PO DAILY THYROID 08/31/21 07/04/23 History d-mannose 500 mg capsule 500 mg PO DAILY 07/11/23 Unknown History spironolactone 25 mg tablet 25 mg PO DAILY #90 tabs 07/11/23 Unknown Rx apixaban 5 mg tablet (Eliquis) 5 mg PO BID blood thinner #60 tabs 08/03/23 11/26/23 Rx albuterol sulfate 90 mcg/actuation 2 puff inhalation Q6H PRN 08/16/23 Unknown History aerosol inhaler shortness of breath or wheezing furosemide 40 mg tablet 40 mg PO .BIDLX WATER PILL 08/16/23 Unknown History potassium chloride 20 mEq 20 meq PO DAILY 08/16/23 Unknown History tablet,extended release(part/cryst) metolazone 5 mg tablet 5 mg PO DAILY 11/08/23 Unknown History Allergy/AdvReac Type Severity Reaction Status Date / Time nitrofurantoin Allergy Hives Verified 12/17/23 14:07 macrocrystalline (From Macrodantin) tree and shrub pollen Allergy Hives Verified 12/17/23 14:07 rosuvastatin (From Crestor) AdvReac Severe Muscle Verified 12/12/23 10:21 weakness colesevelam (From WelChol) AdvReac Intermediate nausea Verified 12/17/23 14:07 nitrofurantoin (From AdvReac Intermediate Hives Verified 12/17/23 14:07 Furadantin) metformin AdvReac Unknown Gi side Verified 12/17/23 14:07 effects Family History Father CAD (coronary artery disease) Diabetes Myocardial infarction Alzheimers disease Hypertension Parkinson's disease Cancer melanoma History of blood clots Mother Diabetes AAA (abdominal aortic aneurysm) Bleeding disorder Colon cancer Thyroid disorder Brother Multiple sclerosis Skin cancer Surgical History History of tonsillectomy and adenoidectomy Hx of lumbar discectomy History of right hip replacement (~07/08/15) History of lumbar fusion (~2012) History of Belkys fundoplication Hx of hernia repair History of cholecystectomy Social History household members: spouse and none Smoking Status: Never smoker alcohol intake: never substance use type: does not use diet: diabetic and gluten free caffeine: No what type of physical activity do you participate in: none seatbelt use: always do you feel safe at home: Yes Review of Systems (Anesthesia) ROS Narrative System reviewed and no additional complaints, except as documented.
--- NOTE | 2023-12-19 12:39 | PRE.ANES_ITS ---
ASA Classification* ASA Classification ASA Classification: 3 Assessment & Plan Anesthesia* Anesthesia Assessment Anesthesia Assessment: Discussed sedation and/or anesthesia options, risks, benefits, and alternatives with patient/parents/legal guardian/POA. Questions invited. The patient/parents/legal guardian/POA seems to understand and agrees to proceed with anesthesia plan. Reviewed the physical assessment, medical history, allergy history and patient home medications list prior to surgery/procedure/anesthetic and documented any changes. Performed airway and anesthesia risk assessments. Anesthesia Type Anesthesia Type: MAC History Source History Obtained from:: Patient and Chart Anesthesia Focused Assessment* Temperature: 98.1 F Pulse Rate: 73 Blood Pressure: 125/58 Respiratory Rate: 16 Pulse Ox: 96 Oxygen Delivery Method: Room Air Airway Assessment Mouth opens: >3 cm Mallampati Score: III Teeth Condition: Partial (Upper partial will come out) Neck Range of motion (ROM): Limited ROM (Patient has had cervical spine surgery resulting in decreased ROM) Focused Labs Anesthesia Preop lab: CBC WBC 11.6 K/mm3 (4.4-11.0) H 12/19/23 05:12 RBC 4.08 M/mm3 (4.2-5.4) L 12/19/23 05:12 Hgb 12.1 g/dL (12.0-15.0) 12/19/23 05:12 Hct 36.9 % (37-47) L 12/19/23 05:12 Plt Count 341 K/mm3 (150-450) 12/19/23 05:12 CHEMISTRY Potassium 3.4 mmol/L (3.5-5.1) L 12/19/23 05:12 Sodium 135 mmol/L (136-145) L 12/19/23 05:12 Magnesium 2.4 mg/dL (1.6-2.6) 12/19/23 05:12 Phosphorus 1.9 mg/dL (2.5-4.9) L 12/19/23 05:12 BUN 23 mg/dL (7-18) H 12/19/23 05:12 Creatinine 0.85 mg/dL (0.55-1.02) 12/19/23 05:12 Glucose 183 mg/dL (74-106) H 12/19/23 05:12 POC Glucose 145 mg/dL (74-106) H 12/19/23 11:18 TSH 2.810 uIU/mL (0.358-3.740) 12/19/23 05:12 COAG PT 12.4 SECONDS (11.7-14.9) 02/15/23 19:20 Pre-Assessment Diagnosis/Proposed Procedure Planned Operative Procedure(s): EGD Anesthesia History 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 When Was Last Pacemaker Check QUESTION #4 FULL TEXT: You/Your Family Experience fever (hyperthermia) with Anesthesia Last Oral Intake Last Oral intake: Last Oral Intake NPO since 00:00 12/19/23 11:55 Meds taken in AM with sips of No 12/19/23 11:55 water? 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 Has anyone observed you stop No 12/17/23 18:23 breathing during sleep? STOP Results Negative 12/17/23 18:23 QUESTION #5 FULL TEXT : Do you snore loudly (louder than talking or can be heard through closed doors)? 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 Specify any problems Hx of Preganancy in last 3 No 12/17/23 18:23 Months Nurse Filling Out Transfusion ZBEAM 12/17/23 18:23 & Questions: Date: 12/17/23 12/17/23 18:23 Time: 18:27 12/17/23 18:23 Patient unable to answer at this time (ie. 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 INHALATION Q2H PRN PRN SOB/WHEEZING Atorvastatin Calcium 10 mg 12/17/23 22:00 12/18/23 21:02 Atorvastatin Calcium 10 Mg Tablet PO 10 mg QHS JCARLOS Administration Glucagon 1 mg 12/17/23 18:21 Glucagon 1 Mg/Ml Syringe IM X1 PRN Hypoglycemia Protocol Hydralazine HCl 5 mg 12/18/23 10:47 Hydralazine 20 Mg/Ml Vial IV Q4H PRN PRN SBP > 180 Protocol Pantoprazole Sodium 80 mg/ 100 mls @ 10 mls/hr 12/17/23 15:45 12/19/23 09:52 Sodium Chloride CONT INF 10 mls/hr Q10H JCARLOS Administration Dextrose 250 mls @ 0 mls/hr 12/17/23 18:21 Dextrose 10%-Water IV .Q0M PRN HYPOGLYCEMIA Protocol As Directed Insulin Glargine 60 unit 12/18/23 10:00 12/19/23 10:25 Insulin Glargine-Yfgn 100 Unit/Ml Pen SC Not Given QAM [facility] Insulin Human Lispro 0 unit 12/17/23 18:21 12/19/23 11:18 Insulin Lispro 100 Unit/Ml Insuln.Pen SC Not Given Q6 [facility] Protocol Levothyroxine Sodium 100 mcg 12/18/23 06:00 12/19/23 05:37 Levothyroxine 100 Mcg Tablet PO Not Given 0600 [facility] Melatonin 3 mg 12/17/23 18:21 Melatonin 3 Mg Tablet PO QHS PRN PRN INSOMNIA Metoclopramide HCl 5 mg 12/19/23 11:30 Metoclopramide 10 Mg/2 Ml Vial IV Q6H PRN PRN NAUSEA/VOMITING Ondansetron HCl 4 mg 12/17/23 18:21 12/19/23 08:21 Ondansetron 4 Mg/2 Ml Vial IV 4 mg Q8H PRN PRN Administration NAUSEA/VOMITING Senna/Docusate Sodium 2 tablet 12/17/23 18:21 Senna/Docusate Sodium 1 Tablet PO BID PRN PRN Constipation Sodium Chloride 10 - 40 ml 12/17/23 18:31 12/18/23 15:47 0.9% Saline Lock 10 Ml Syringe IV 10 ml UD PRN Administration SALINE FLUSH PFSH Medical History JHONY (obstructive sleep apnea) Obesity (BMI 30-39.9) Back pain History of venous thromboembolism Left-sided chest wall pain Venous insufficiency Hiatal hernia Esophageal spasm Edema JHONY (obstructive sleep apnea) History of basal cell carcinoma (BCC) History of DVT (deep vein thrombosis) Seizure disorder Osteoarthritis Essential hypertension GERD (gastroesophageal reflux disease) Parkinsons disease Lung disease Kidney disease Hypothyroidism Sleep apnea IBS (irritable bowel syndrome) Depression Asthma Obesity (BMI 30.0-34.9) Lumbar back pain Premature atrial contractions COPD (chronic obstructive pulmonary disease) Hyperlipidemia Diabetes mellitus type II, controlled History of pulmonary embolism Symptomatic bradycardia Home Medications ?Medication ?Instructions ?Recorded ?Last Taken ?Type omeprazole 20 mg capsule,delayed 20 mg PO DAILY ACID REFLUX 06/19/17 07/04/23 History release simvastatin 20 mg tablet 20 mg PO QHS cholesterol 90 days 09/01/17 07/03/23 History #90 tabs inhalational spacing device #1 ea 01/23/21 Unknown Rx (POCKET CHAMBER spacer) insulin glargine 100 unit/mL (3 90 unit subcut QAM diabetes 06/02/21 07/04/23 History mL) subcutaneous pen (Lantus Solostar U-100 Insulin) levothyroxine 100 mcg tablet 100 mcg PO DAILY THYROID 08/31/21 07/04/23 History d-mannose 500 mg capsule 500 mg PO DAILY 07/11/23 Unknown History spironolactone 25 mg tablet 25 mg PO DAILY #90 tabs 07/11/23 Unknown Rx apixaban 5 mg tablet (Eliquis) 5 mg PO BID blood thinner #60 tabs 08/03/23 11/26/23 Rx albuterol sulfate 90 mcg/actuation 2 puff inhalation Q6H PRN 08/16/23 Unknown History aerosol inhaler shortness of breath or wheezing furosemide 40 mg tablet 40 mg PO .BIDLX WATER PILL 08/16/23 Unknown History potassium chloride 20 mEq 20 meq PO DAILY 08/16/23 Unknown History tablet,extended release(part/cryst) metolazone 5 mg tablet 5 mg PO DAILY 11/08/23 Unknown History Allergy/AdvReac Type Severity Reaction Status Date / Time nitrofurantoin Allergy Hives Verified 12/17/23 14:07 macrocrystalline (From Macrodantin) tree and shrub pollen Allergy Hives Verified 12/17/23 14:07 rosuvastatin (From Crestor) AdvReac Severe Muscle Verified 12/12/23 10:21 weakness colesevelam (From WelChol) AdvReac Intermediate nausea Verified 12/17/23 14:07 nitrofurantoin (From AdvReac Intermediate Hives Verified 12/17/23 14:07 Furadantin) metformin AdvReac Unknown Gi side Verified 12/17/23 14:07 effects Family History Father CAD (coronary artery disease) Diabetes Myocardial infarction Alzheimers disease Hypertension Parkinson's disease Cancer melanoma History of blood clots Mother Diabetes AAA (abdominal aortic aneurysm) Bleeding disorder Colon cancer Thyroid disorder Brother Multiple sclerosis Skin cancer Surgical History History of tonsillectomy and adenoidectomy Hx of lumbar discectomy History of right hip replacement (~07/08/15) History of lumbar fusion (~2012) History of Belkys fundoplication Hx of hernia repair History of cholecystectomy Social History household members: spouse and none Smoking Status: Never smoker alcohol intake: never substance use type: does not use diet: diabetic and gluten free caffeine: No what type of physical activity do you participate in: none seatbelt use: always do you feel safe at home: Yes Review of Systems (Anesthesia) ROS Narrative System reviewed and no additional complaints, except as documented.
--- NOTE | 2023-12-19 13:10 | OP.CCLET_ITS ---
12/19/2023 Gael Garza [address] [place] [address] [place] [address] Re : Upper GI endoscopy procedure for Aga Walters Dear Dr. Garza This procedure was performed on Tuesday, December 19, 2023. My impressions and recommendations are as follows: Impressions : - LA Grade C erosive esophagitis with bleeding. - Benign-appearing esophageal stenosis. - Large hiatal hernia. - A large amount of food (residue) in the stomach. - No gross lesions in the first portion of the duodenum. - No specimens collected. Recommendations : - Give Protonix (pantoprazole): initiate therapy with 80 mg IV bolus, then 8 mg/hr IV by continuous infusion for 2 days. - Consider endoscopic hiatal hernia reduction with PEG placement - Continue present medications. My findings are described in the full procedure note, which is enclosed. If I can be of further assistance, please feel free to contact me at . Sincerely, Andrew Ivey, 12/19/2023 1:10:02 PM This report has been signed electronically.
--- NOTE | 2023-12-19 13:10 | OP.EGD_ITS ---
Patient Name: Aga Walters Procedure Date: 12/19/2023 12:36 PM Date of : 1945 Age: 78 Procedure: Upper GI endoscopy Indications: Epigastric abdominal pain, Dysphagia, Heartburn Providers: Andrew Ivey DO Medicines: Monitored Anesthesia Care Patient Profile: This is an 78 year old female. Refer to note in patient chart for documentation of history and physical. Patient has symptoms of chronic dysphagia, chronic nausea, chronic throat burning and chronic vomiting. Complications: No immediate complications. Procedure: Pre-Anesthesia Assessment: - Prior to the procedure, a History and Physical was performed, and patient medications and allergies were reviewed. The patient is competent. The risks and benefits of the procedure and the sedation options and risks were discussed with the patient. All questions were answered and informed consent was obtained. Patient identification and proposed procedure were verified by the physician in the pre-procedure area. Mental Status Examination: alert and oriented. Airway Examination: normal oropharyngeal airway and neck mobility. Respiratory Examination: clear to auscultation. CV Examination: normal. Prophylactic Antibiotics: The patient does not require prophylactic antibiotics. Prior Anticoagulants: The patient has taken no anticoagulant or antiplatelet agents except for NSAID medication. ASA Grade Assessment: III - A patient with severe systemic disease. After reviewing the risks and benefits, the patient was deemed in satisfactory condition to undergo the procedure. The anesthesia plan was to use monitored anesthesia care (MAC). Immediately prior to administration of medications, the patient was re-assessed for adequacy to receive sedatives. The heart rate, respiratory rate, oxygen saturations, blood pressure, adequacy of pulmonary ventilation, and response to care were monitored throughout the procedure. The physical status of the patient was re-assessed after the procedure. After obtaining informed consent, the endoscope was passed under direct vision. Throughout the procedure, the patient's blood pressure, pulse, and oxygen saturations were monitored continuously. The gastroscope was introduced through the mouth, and advanced to the second part of duodenum. The upper GI endoscopy was accomplished without difficulty. The patient tolerated the procedure well. Scope In: 12:57:56 PM Scope Out: 1:01:46 PM Total Procedure Duration Time 0 hours 3 minutes 50 seconds Findings: LA Grade C (one or more mucosal breaks continuous between tops of 2 or more mucosal folds, less than 75% circumference) esophagitis with bleeding was found 23 to 40 cm from the incisors. One benign-appearing, intrinsic severe stenosis was found 30 to 33 cm from the incisors. This stenosis measured 3 cm (in length). The stenosis was traversed. A large hiatal hernia was present. A large amount of food (residue) was found in the gastric fundus. No gross lesions were noted in the first portion of the duodenum. Impression: - LA Grade C erosive esophagitis with bleeding. - Benign-appearing esophageal stenosis. - Large hiatal hernia. - A large amount of food (residue) in the stomach. - No gross lesions in the first portion of the duodenum. - No specimens collected. Recommendation: - Give Protonix (pantoprazole): initiate therapy with 80 mg IV bolus, then 8 mg/hr IV by continuous infusion for 2 days. - Consider endoscopic hiatal hernia reduction with PEG placement - Continue present medications. Procedure Code(s): --- Professional --- 61715, Esophagogastroduodenoscopy, flexible, transoral; diagnostic, including collection of specimen(s) by brushing or washing, when performed (separate procedure) CPT copyright 2021 [employer]. All rights reserved. The codes documented in this report are preliminary and upon scaler packer review may be revised to meet current compliance requirements. Andrew Ivey DO 12/19/2023 1:10:02 PM This report has been signed electronically. Number of Addenda: 0 Note Initiated On: 12/19/2023 12:36 PM
--- NOTE | 2023-12-19 13:11 | PCM.POST.ANE ---
Anesthesia: Postop Eval I Current Vital Signs Temperature: 97.3 F Pulse Rate: 88 Blood Pressure: 115/74 Respiratory Rate: 16 Pulse Ox: 98 Oxygen Delivery Method: Room Air Assessment Airway patent: Yes Spontaneous unlabored respirations: Yes Mental status: Awake nausea: No Vomiting: No Anesthesia Complication: No Fluid Hydration Crystalloid volume administer (ml): 400 Total IV fluid infused: 400 Progress Note Anesthesia document: Postop Eval 1 completed: Yes
--- NOTE | 2023-12-19 13:42 | PCM.POSTANE2 ---
Anesthesia Postop Eval I Sum Postop Eval Completion status Anesthesia document: Postop Eval 1 completed: Yes Anesthesia Postop Eval I Summary Anesthesia Postop Eval I Summary: Anesthesia Postop Eval I: Assessment Summary Airway patent Yes 12/19/23 13:11 [email or web address] Spontaneous unlabored Yes 12/19/23 13:11 [email or web address] respirations Mental status Awake 12/19/23 13:11 [email or web address] nausea No 12/19/23 13:11 [email or web address] Vomiting No 12/19/23 13:11 [email or web address] Anesthesia Postop Eval I: Fluid Summary Crystalloid volume administer 400 12/19/23 13:11 [email or web address] (ml) Colloids volume administered ( ml) Blood Product volume administered (ml) Total IV fluid infused 400 12/19/23 13:11 [email or web address] Anesthesia Postop Eval I: Summary Notes Anesthesia Complication No 12/19/23 13:11 [email or web address] Anesthesia Complication Comment: Post-operative progress note Anesthesia: Postop Eval II Evaluation Mental status: Awake Pain Level: 0 nausea: No Vomiting: No
[2023-12-19] MEDS: Azithromycin 500 MG in Dextrose 5%-Water (250mL Bag) 250 ML 250 MG IV (15:03)
--- NOTE | 2023-12-19 15:21 | CASEMGMT ---
Discharge Planning A list of SNF providers including quality and resource use data and consistent with the patient's preferred geographic region, medical needs, and insurance network was created in [facility] Guide.? This list was provided to the RN CARLOS. Viv Esteban, Discharge Planning Asst.
--- NOTE | 2023-12-19 15:30 | CASEMGMT ---
JESSIE GONZALEZ chart review: Patient was admitted 12/02-12/05/23 for acute exacerbation of COPD. Patient was discharged to home with script for outpatient therapy that patient was going to schedule on her own. Patient returned to [facility] ED on 12/16 after syncopal episode and was admitted for syncope and coffee ground emesis. GI consulted, EGD completed and showed erosive esophagitis with bleeding and large hiatal hernia. JESSIE GONZALEZ in to discuss readmission and needs at discharge. Patient states she attended all her follow-up appts and also saw her machine heel builder and vascular surgeon. Family at bedside. Patient did not schedule outpatient therapy. and daughter concerned about patient's physical ability to discharge home. Increased weakness and patient requiring assistance x1 to BSC in room. had back surgery and in not able to physically assist patient. Patient agreeable to SNF at discharge and requested list. JESSIE GONZALEZ provided SNF list to patient to review and provide preferences. Patient and family voiced understanding. Patient and family had no further questions or concerns CM to follow up with patient in the morning for SNF preferences. CM will continue to follow this patient and plan for a safe discharge.
--- NOTE | 2023-12-19 16:25 | CHAPLAIN ---
Type of Pastoral Visit _x__ Initial Visit ___ Follow-up Visit ___ On-call Visit ___ General Patient Visit ___ Spiritual Assessment ___ Family Conference ___ Bereavement ___ Rapid Response ___ Code Blue ___ Other (describe below) Pastoral Care Referral From _x__ Patient ___ Family ___ Nurse ___ Physician ___ Quality Improvement Coordinator (Rn) ___ Social Work Manager ___ Other (describe below) Sacrament/Intervention _x__ Active listening ___ Anointing ___ Episcopal ___ Bereavement ___ Communion ___ Jodi exploration ___ ___ Life review _x__ Prayer ___ Reconciliation ___ Sacrament of Sick _x__ Supportive presence ___ Wedding ___ Other (describe below) Pastoral Comments patient has been seen recently as admission was just last month; pt speaks of her condition and explains that she is just trusting God for her life and need; pt admits that spouse has issues too; pt requests prayer support and that was given; presence given to listen and affirm feelings and jodi
[2023-12-19] MEDS: Insulin Lispro 100 UNIT/ML INSULN.PEN SC ×2 (17:48→23:58)
[2023-12-19 18:17] LABS: Bedside Glucose 161 mg/dL (74-106)
[2023-12-19] MEDS: Atorvastatin Calcium 10 MG Tablet PO (20:44)
[2023-12-19] MEDS: 0.9% Saline Lock 10 ML Syringe IV (23:52)
[2023-12-20 00:19] LABS: Bedside Glucose 235 mg/dL (74-106)
[2023-12-20 03:26] VITALS: BP 124/64; PULSE 73; RESP 16; TEMP 36.4; O2SAT 95
[2023-12-20 05:57] LABS: Absolute Lymphocyte Count 0.97 X10^3/uL (0.83-4.51); Absolute Neutrophil Count 8.1 X10^3/uL (2.0-7.7); Basophil# 0.04 X10^3/uL; Basophil% 0.4 % (0-1); Eosinophil# 0.19 X10^3/uL; Eosinophils% 1.8 % (0-5); Hematocrit 35.3 % (37-47); Hemoglobin 11.4 g/dL (12.0-15.0); Lymphocyte # 0.97 X10^3/ul (0.83-4.51); Lymphocyte % 9.3 % (19-41); Mean Corp Hgb Conc 32.3 g/dL (32-36); Mean Corpuscular Hgb 29.3 pg (27.0-32.0); Mean Corpuscular Volume 90.7 fL (81-99); Mean Platelet Vol. 10.2 fl (6.2-12.0); Monocyte# 1.01 X10^3/uL; Monocyte% 9.6 % (0-10); NRBC Flagged by Analyzer 0 % (0-5); Neutrophil # 8.14 X10^3/uL (2.7-7.7); Neutrophil % 77.7 % (47-70); Platelet Count 271 K/mm3 (150-450); RBC Distribution Width CV 13.7 % (11.6-14.6); RBC Distribution Width SD 45.4 fl (35.1-43.9); Red Blood Count 3.89 M/mm3 (4.2-5.4); White Blood Count 10.5 K/mm3 (4.4-11.0)
[2023-12-20] MEDS: Levothyroxine 100 MCG Tablet PO (06:23)
[2023-12-20] MEDS: Metoclopramide 10 MG/2 ML Vial IV ×4 (06:23→23:18)
[2023-12-20] MEDS: 0.9% Saline Lock 10 ML Syringe IV ×3 (06:23→21:02)
[2023-12-20] MEDS: Insulin Lispro 100 UNIT/ML INSULN.PEN SC ×3 (06:26→16:50)
[2023-12-20 06:59] LABS: Bedside Glucose 192 mg/dL (74-106)
[2023-12-20 07:00] LABS: Anion Gap 6 (5-15); BUN 14 mg/dL (7-18); BUN/Creat Ratio 18.5 RATIO (10-20); Calcium,Total 8.3 mg/dL (8.5-10.1); Chloride 104 mmol/L (98-107); Creatinine, Serum 0.76 mg/dL (0.55-1.02); EST Glomerular Filtration Rate 78 mL/min (>60); Est Glom Filt Rate - Afr Amer 95 mL/min (>60); Estimated Creatinine Clearance 60.13 ml/min; Glucose 218 mg/dL (74-106); Potassium 3.6 mmol/L (3.5-5.1); Sodium Level 135 mmol/L (136-145)
[2023-12-20 07:40] LABS: Hemoglobin A1c 9.7 % (3.8-5.6)
[2023-12-20] MEDS: Pantoprazole Sodium 80 MG in 0.9% Normal Saline (100mL Bag) 80 ML 10 MG CONT INF ×2 (08:11→17:39)
[2023-12-20 09:45] LABS: Pathologist Review Reviewed
[2023-12-20 09:46] LABS: Pathologist Review Reviewed
[2023-12-20 11:41] VITALS: BP 117/61; PULSE 79; RESP 16; TEMP 36.7; O2SAT 97
[2023-12-20] MEDS: Insulin Glargine-YFGN 100 UNIT/ML Pen 60 UNIT SC (11:57)
[2023-12-20] MEDS: Azithromycin 500 MG in Dextrose 5%-Water (250mL Bag) 250 ML 250 MG IV (11:58)
[2023-12-20 12:26] LABS: Bedside Glucose 259 mg/dL (74-106)
--- NOTE | 2023-12-20 14:25 | PCM.PN.HOSP ---
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 (12/17/23) Objective Data Objective Data Vital Signs: Vital Signs Temp Pulse Resp BP Pulse Ox O2 Del Method 98.1 F 79 16 117/61 97 Room Air 12/20/23 11:41 12/20/23 11:41 12/20/23 11:41 12/20/23 11:41 12/20/23 11:41 12/20/23 13:20 Oxygen Delivery Method Room Air Weight: 185 lb 12.784 oz Body Mass Index (BMI) 30.9 Intake & Output: Intake and Output for Last 24 Hours 12/18/23 12/19/23 12/20/23 23:59 23:59 23:59 Intake Total 1389.83 / 1869.83 2795 / 2795 475 / 475 Output Total 420 / 420 400 / 400 Balance 969.83 / 1449.83 2395 / 2395 475 / 475 Lab / Micro Data 12/20/23 05:22 12/20/23 05:22 Labs: Laboratory Results - last 24 hr 12/17/23 14:25: Diff Path Review Reviewed 12/18/23 04:07: Diff Path Review Reviewed 12/19/23 17:47: POC Glucose 161 H 12/19/23 23:57: POC Glucose 235 H 12/20/23 05:22: WBC 10.5, RBC 3.89 L, Hgb 11.4 L, Hct 35.3 L, MCV 90.7, MCH 29.3, MCHC 32.3, RDW Std Deviation 45.4 H, RDW Coeff of Basilio 13.7, Plt Count 271, MPV 10.2, Immature Gran % (Auto) 1.200 H, Neut % (Auto) 77.7 H, Lymph % (Auto) 9.3 L, [place] % (Auto) 9.6, Eos % (Auto) 1.8, Baso % (Auto) 0.4, Absolute Neuts (auto) 8.1 H, Absolute Lymphs (auto) 0.97, Nucleated RBC % 0, Sodium 135 L, Potassium 3.6, Chloride 104, Carbon Dioxide 25.0, Anion Gap 6, BUN 14, Creatinine 0.76, Estim Creat Clear Calc 60.13, Est GFR (MDRD) Af Amer 95, Est GFR (MDRD) Non-Af 78, BUN/Creatinine Ratio 18.5, Glucose 218 H, Hemoglobin A1c 9.7 H, Calcium 8.3 L 12/20/23 06:25: POC Glucose 192 H 12/20/23 11:49: POC Glucose 259 H Micro: Microbiology 12/18/23 02:50 Gastric Fluid/Contents Gastric Occult Blood - Final Occult Blood Positive Physical Exam Narrative Seen and examined. Looks tired and fatigued. Did not rule out of the bradycardia last 3 days since I am following her. She has history of lymphedema. Chronic large hiatus hernia with recurrence after fundoplication in [facility] long time ago. She follows Dr. Chow in [facility] gastroenterology. No fever. She had a fall and syncope. Denies recent symptoms of UTI. Had EGD yesterday. Physical exam General: Alert, Oriented x3, Cooperative HEENT: Pale conjunctiva. Atraumatic, PERRLA, EOMI, Normocephalic Oral: Oral mucosa dry. No Gingival or Mucosal Lesions/ Ulcerations Neck: Supple, No JVD, Negative Carotid Bruits Chest wall/Lungs: Air entry diminished in bilateral lung bases. No crepitation/rhonchi Cardiovascular: Regular rate, Regular Rhythm, Normal S1, Normal S2, No M/G/R Abdomen: Bowel Sounds Present, Soft, Non Tender, Non-Distended : No dysuria. No renal angle tenderness. No suprapubic tenderness. Extremities: Chronic lymphedema lower extremity and upper extremities.Capillary Refill Less than 3 Seconds Skin: No rashes, No breakdown. Dry skin Musculoskeletal: No Tenderness to Palpation of Joints or Extremities. 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 Neurological: Cranial nerves II-XII grossly intact, DTR 2+/4. No acute focal neurological deficit. Psych/Mental Status: Flat affect. Assessment & Plan Assessment/Plan (1) Acute dehydration: (2) Acute prerenal azotemia: (3) Anticoagulant long-term use: (4) Essential hypertension: PLAN: Plan 78-year-old female was admitted for syncope on the day of admission. She passed out and fell at her dining room while going to the kitchen. Denies prodromal symptoms. She also had coffee ground emesis in the same day. She takes Advil in the morning and Tylenol in the evening for chest pain secondary to habitus hernia. Bilateral lower EXTR swelling due to lymphedema 1. Syncope, exact etiology unclear most likely due to GI bleed/ low BP: Chest x-ray initially reviewed and suboptimal with poor inspiratory volume. X-ray of hip and pelvis shows bilateral hip arthroplasty with no evidence of fracture or subluxation or dislocation. Resting heart rate in the mid to upper 60s but walking her to 112 on her Apple Watch. 1 L of normal saline was given in the ED for dehydration BP 112/70 heart rate 70/min. Orthostatic blood pressure did not show significant drop, systolic dropped to about 13 mm. But no significant change in heart rate. 12/18: Mild hypokalemia potassium 3.4. Sodium 135, hyponatremia: IV fluid and electrolytes are getting replaced. Discussed with the nursing staff 12/19: Syncope resolved. K3.6 and sodium 135. Continue electrolytes replacement. 2. Acute GI bleed, upper may be from large hiatus hernia: Stool for occult blood positive. H&H 14.9/44%. Platelet count 503,000. Serial H&H does not show significant drop. GI consulted. On IV PPI prophylaxis. Hold anticoagulation. NG tube 12/18: NG tube was almost out yesterday in hiatus hernia sac therefore was removed. Plan for EGD today. Discussed with the net application support specialist Dr. Ivey. 12/19: Patient had EGD on 12/18. Discussed with Dr. Ivey. Patient is high risk for repeat large hiatus hernia but has food residue/bezoar, esophageal benign appearing stenosis and grade C erosive esophagitis with bleeding. He recommended as patient can follow-up for [facility] surgeon and GI for Belkys's fundoplication surgery or palliative PEG placement with endoscopic hiatus hernia reduction/gastropexy Discussed with Dr. Ivey. 3. Hypertension: Home diuretics and spironolactone held. Monitor BP as needed hydralazine IV ordered 4. Chronic hiatus hernia status post Belkys's fundoplication: Chest x-ray shows large hiatal salience with tip of NG tube and hernia. 5. 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 Bilateral DVT. DVT prophylaxis: SCDs ordered. Advance care planning: Discussed with patient and family advanced directives as well as CODE STATUS. Explained various CODE STATUS: FULL CODE, DNR CCA, DNR CCA with no intubation, and DNR CC- and what each meant. Patient elected to be a full code with CPR and intubation if warranted. Order was placed. 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 Charges/Coding Visit Charges Inpatient E&M: 63326 Subs Hosp L2
--- NOTE | 2023-12-20 15:42 | CASEMGMT ---
Addendum entered by Viv Esteban 12/21/23 11:31: [facility] declined d/t no bed availability. [facility] updated that they are foc but not to start precert. Viv Esteban DC Planning Asst. Addendum entered by Viv Esteban 12/21/23 09:03: Note sent to [facility] to check on status of referral. Awaiting response. Viv Esteban DC Planning Asst. Addendum entered by Viv Esteban 12/20/23 16:53: [facility] has accepted. Viv Esteban DC Planning Asst. Original Note: SAMSON reviewed therapy notes and noted therapy is recommending SNF for patient. RN CARLOS previously gave patient and family a list of SNF's. SAMSON met with patient, her 2 daughters, and . SW introduced self and role at [facility]. Their choices were [facility] and then [facility]. SW sent referrals to both facilities. Await response. Helen Patel CLIENT SUPPORT CONSULTANT SANDRA
[2023-12-20 16:23] LABS: Bedside Glucose 221 mg/dL (74-106)
[2023-12-20 16:47] VITALS: BP 113/43; PULSE 74; RESP 16; TEMP 36.9; O2SAT 95
[2023-12-20] MEDS: KCL 40mEq in 0.9% NS 40 MEQ/1,000 ML IV.SOLN 75 MEQ IV (17:13)
[2023-12-20] MEDS: Atorvastatin Calcium 10 MG Tablet PO (21:02)
[2023-12-20 21:03] VITALS: BP 127/61; PULSE 74; RESP 18; TEMP 37.1; O2SAT 97
[2023-12-20 22:32] LABS: Bedside Glucose 108 mg/dL (74-106)
[2023-12-21] VITALS (27 sets, daily range): BP systolic 100–137; BP diastolic 51–89; PULSE 64–116; RESP 18–24; TEMP 36.5–37.2; O2SAT 82–98
[2023-12-21] MEDS: Pantoprazole Sodium 80 MG in 0.9% Normal Saline (100mL Bag) 80 ML 10 MG CONT INF ×3 (03:14→23:07)
[2023-12-21] MEDS: Levothyroxine 100 MCG Tablet PO (05:54)
[2023-12-21] MEDS: Metoclopramide 10 MG/2 ML Vial IV ×4 (05:56→23:11)
[2023-12-21 06:00] LABS: Absolute Lymphocyte Count 1.11 X10^3/uL (0.83-4.51); Absolute Neutrophil Count 10.5 X10^3/uL (2.0-7.7); Basophil# 0.04 X10^3/uL; Basophil% 0.3 % (0-1); Eosinophil# 0.23 X10^3/uL; Eosinophils% 1.7 % (0-5); Hematocrit 34.2 % (37-47); Lymphocyte # 1.11 X10^3/ul (0.83-4.51); Lymphocyte % 8.4 % (19-41); Mean Corp Hgb Conc 32.2 g/dL (32-36); Mean Corpuscular Hgb 29.3 pg (27.0-32.0); Mean Corpuscular Volume 91.2 fL (81-99); Mean Platelet Vol. 10.3 fl (6.2-12.0); Monocyte# 1.21 X10^3/uL; Monocyte% 9.1 % (0-10); NRBC Flagged by Analyzer 0 % (0-5); Neutrophil # 10.54 X10^3/uL (2.7-7.7); Neutrophil % 79.7 % (47-70); Platelet Count 257 K/mm3 (150-450); RBC Distribution Width CV 13.6 % (11.6-14.6); RBC Distribution Width SD 45.1 fl (35.1-43.9); Red Blood Count 3.75 M/mm3 (4.2-5.4); White Blood Count 13.2 K/mm3 (4.4-11.0)
[2023-12-21] MEDS: KCL 40mEq in 0.9% NS 40 MEQ/1,000 ML IV.SOLN 75 MEQ IV (06:02)
[2023-12-21 06:19] LABS: Anion Gap 5 (5-15); BUN 8 mg/dL (7-18); BUN/Creat Ratio 13.3 RATIO (10-20); Chloride 109 mmol/L (98-107); EST Glomerular Filtration Rate 102 mL/min (>60); Est Glom Filt Rate - Afr Amer 124 mL/min (>60); Estimated Creatinine Clearance 60.13 ml/min; Glucose 59 mg/dL (74-106); Potassium 3.3 mmol/L (3.5-5.1); Sodium Level 138 mmol/L (136-145)
[2023-12-21 07:21] LABS: Bedside Glucose 52 mg/dL (74-106)
[2023-12-21 07:21] LABS: Bedside Glucose 54 mg/dL (74-106)
[2023-12-21 07:55] LABS: Bedside Glucose 72 mg/dL (74-106)
--- NOTE | 2023-12-21 08:03 | CASEMGMT ---
Patient was accepted by [facility]. SW will check with [facility] as this is patient's first choice. Helen Patel ANALYTICAL RESEARCH CHEMIST SANDRA
--- NOTE | 2023-12-21 08:20 | PCM.PN.HOSP ---
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 (12/17/23) Objective Data Objective Data Vital Signs: Vital Signs Temp Pulse Resp BP Pulse Ox O2 Del Method O2 Flow Rate 98.0 F 64 18 129/51 H 92 High Flow 8 12/21/23 03:15 12/21/23 03:15 12/21/23 03:15 12/21/23 03:15 12/21/23 08:18 12/21/23 08:18 12/21/23 08:18 Oxygen Flow Rate (L/min) 8 Oxygen Delivery Method High Flow Weight: 185 lb 12.784 oz Body Mass Index (BMI) 30.9 Intake & Output: Intake and Output for Last 24 Hours 12/19/23 12/20/23 12/21/23 23:59 23:59 23:59 Intake Total 2795 / 2795 2189.67 / 2189.67 1245.83 / 1245.83 Output Total 400 / 400 Balance 2395 / 2395 2189.67 / 2189.67 1245.83 / 1245.83 Lab / Micro Data 12/21/23 05:29 12/21/23 05:29 Labs: Laboratory Results - last 24 hr 12/17/23 14:25: Diff Path Review Reviewed 12/18/23 04:07: Diff Path Review Reviewed 12/20/23 11:49: POC Glucose 259 H 12/20/23 15:49: POC Glucose 221 H 12/20/23 21:01: POC Glucose 108 H 12/21/23 05:29: WBC 13.2 H, RBC 3.75 L, Hgb 11.0 L, Hct 34.2 L, MCV 91.2, MCH 29.3, MCHC 32.2, RDW Std Deviation 45.1 H, RDW Coeff of Basilio 13.6, Plt Count 257, MPV 10.3, Immature Gran % (Auto) 0.800, Neut % (Auto) 79.7 H, Lymph % (Auto) 8.4 L, [place] % (Auto) 9.1, Eos % (Auto) 1.7, Baso % (Auto) 0.3, Absolute Neuts (auto) 10.5 H, Absolute Lymphs (auto) 1.11, Nucleated RBC % 0, Sodium 138, Potassium 3.3 L, Chloride 109 H, Carbon Dioxide 24.0, Anion Gap 5, BUN 8, Creatinine 0.60, Estim Creat Clear Calc 60.13, Est GFR (MDRD) Af Amer 124, Est GFR (MDRD) Non-Af 102, BUN/Creatinine Ratio 13.3, Glucose 59 L, Calcium 8.0 L 12/21/23 06:41: POC Glucose 52 L 12/21/23 07:03: POC Glucose 54 L 12/21/23 07:37: POC Glucose 72 L Micro: Microbiology 12/18/23 02:50 Gastric Fluid/Contents Gastric Occult Blood - Final Occult Blood Positive Physical Exam Narrative Seen and examined. Looks tired and fatigued. Did not move out of bed since admission. In the morning around during nursing report, it seems patient has vomited small amount of bloody sputum. Speech therapy called. Concern of aspiration therefore started on IV Unasyn. Continue Zithromax and regular. She has history of lymphedema. Chronic large hiatus hernia with recurrence after fundoplication in [facility] long time ago. She follows Dr. Chow in [facility] gastroenterology. No fever. She had a fall and syncope. Denies recent symptoms of UTI. Had EGD yesterday. Physical exam General: Alert, Oriented x3, Cooperative HEENT: Pale conjunctiva. Atraumatic, PERRLA, EOMI, Normocephalic Oral: Oral mucosa dry. No Gingival or Mucosal Lesions/ Ulcerations Neck: Supple, No JVD, Negative Carotid Bruits Chest wall/Lungs: Air entry diminished in bilateral lung bases. Bilateral coarse crepitations in lung bases. Cardiovascular: Regular rate, Regular Rhythm, Normal S1, Normal S2, No M/G/R Abdomen: Bowel Sounds Present, Soft, Non Tender, Non-Distended : No dysuria. No renal angle tenderness. No suprapubic tenderness. Extremities: Chronic lymphedema lower extremity and upper extremities.Capillary Refill Less than 3 Seconds Skin: No rashes, No breakdown. Dry skin Musculoskeletal: No Tenderness to Palpation of Joints or Extremities. 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 Neurological: Cranial nerves II-XII grossly intact, DTR 2+/4. No acute focal neurological deficit. Psych/Mental Status: Flat affect. Assessment & Plan Assessment/Plan (1) Acute dehydration: (2) Acute prerenal azotemia: (3) Anticoagulant long-term use: (4) Essential hypertension: PLAN: Plan 78-year-old female was admitted for syncope on the day of admission. She passed out and fell at her dining room while going to the kitchen. Denies prodromal symptoms. She also had coffee ground emesis in the same day. She takes Advil in the morning and Tylenol in the evening for chest pain secondary to habitus hernia. Bilateral lower EXTR swelling due to lymphedema 1. Syncope, exact etiology unclear most likely due to GI bleed/ low BP: Chest x-ray initially reviewed and suboptimal with poor inspiratory volume. X-ray of hip and pelvis shows bilateral hip arthroplasty with no evidence of fracture or subluxation or dislocation. Resting heart rate in the mid to upper 60s but walking her to 112 on her Apple Watch. 1 L of normal saline was given in the ED for dehydration BP 112/70 heart rate 70/min. Orthostatic blood pressure did not show significant drop, systolic dropped to about 13 mm. But no significant change in heart rate. 12/18: Mild hypokalemia potassium 3.4. Sodium 135, hyponatremia: IV fluid and electrolytes are getting replaced. Discussed with the nursing staff 12/19: Syncope resolved. K3.6 and sodium 135. Continue electrolytes replacement. 2. Acute GI bleed, upper may be from large hiatus hernia: Stool for occult blood positive. H&H 14.9/44%. Platelet count 503,000. Serial H&H does not show significant drop. GI consulted. On IV PPI prophylaxis. Hold anticoagulation. NG tube 12/18: NG tube was almost out yesterday in hiatus hernia sac therefore was removed. Plan for EGD today. Discussed with the railroad carman Dr. Ivey. 12/19: Patient had EGD on 12/18. Discussed with Dr. Ivey. Patient is high risk for repeat large hiatus hernia but has food residue/bezoar, esophageal benign appearing stenosis and grade C erosive esophagitis with bleeding. He recommended as patient can follow-up for [facility] surgeon and GI for Belkys's fundoplication surgery or palliative PEG placement with endoscopic hiatus hernia reduction/gastropexy 12/20: Since patient has aspirated from hiatus hernia or small vomiting of blood. Speech therapist recommended NPO. Started on IV Unasyn. Prior to that patient was started on IV Flagyl and Zithromax for hiatus hernia/gastroparesis. EGD show for residue in stomach. Discussed with Dr. Ivey. 3. Hypertension: Home diuretics and spironolactone held. Monitor BP as needed hydralazine IV ordered 4. Chronic hiatus hernia status post Belkys's fundoplication: Chest x-ray shows large hiatal salience with tip of NG tube and hernia. 5. 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 Bilateral DVT. DVT prophylaxis: SCDs ordered. Family discussion was done on 12/19 and advised to follow-up with the [facility] surgeon to get an opinion for endoscopic repair of hiatus hernia. Advance care planning: Discussed with patient and family advanced directives as well as CODE STATUS. Explained various CODE STATUS: FULL CODE, DNR CCA, DNR CCA with no intubation, and DNR CC- and what each meant. Patient elected to be a full code with CPR and intubation if warranted. Order was placed. 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 Charges/Coding Addendum Addendum: Total time of the visit including total time spent in counseling or coordination of care, (more than 50% of the total time, spent in obtaining medical information from nurses and other ancillary care providers,explaining to the patient about labs, imaging, diagnosis and management of active complex medical conditions), small vomiting/aspiration with hypoxia, review of labs and imaging is 35 minutes. Visit Charges Inpatient E&M: 44622 Subs Hosp L3
[2023-12-21] MEDS: Ipratropium/Albuterol Sulfate 3 ML AMPUL.NEB INHALATION (09:11)
[2023-12-21] MEDS: 0.9% Saline Lock 10 ML Syringe IV ×3 (10:42→14:31)
[2023-12-21] MEDS: Furosemide 40 MG/4 ML Vial IV (10:42)
[2023-12-21] MEDS: Ampicillin/Sulbactam 3 GM in 0.9% Normal Saline (100mL MB+) 100 ML IV ×2 (10:48→17:42)
[2023-12-21] MEDS: Azithromycin 500 MG in Dextrose 5%-Water (250mL Bag) 250 ML 250 MG IV (12:18)
[2023-12-21 12:44] LABS: Bedside Glucose 157 mg/dL (74-106)
--- NOTE | 2023-12-21 14:01 | CASEMGMT ---
[facility] has declined patient as they do not have any beds available. SW met with patient and her . SW explained [facility] is unable to accept patient due to no bed availability, however [facility] is able to take her when ready. Both verbalized understanding and were in agreement with [facility]. Plan: d/c to [facility] pending insurance approval. Helen Patel INDUSTRIAL GREEN SYSTEMS DESIGNER SANDRA
--- NOTE | 2023-12-21 17:40 | RAD_ITS ---
INDICATION: sob/aspiration EXAMINATION/TECHNIQUE: X-RAY - XR Chest 1 View COMPARISON: 12/17/2023. FINDINGS: Right lower lobe patchy opacities. Tortuous and calcified thoracic aorta. The heart is mildly enlarged. No pleural effusion or pneumothorax. Degenerative changes of the thoracic spine. RAD/Chest 1 View (Portable) IMPRESSION: Right lower lobe pneumonia. Electronically Signed: Mina Funes MD at 18:41 EDT ,
[2023-12-21 17:46] LABS: Bedside Glucose 158 mg/dL (74-106)
[2023-12-21] MEDS: Potassium Phosphate 21 MM in 0.9% Normal Saline (250mL Bag) 250 ML 84 MM IV (18:53)
[2023-12-21] MEDS: Ondansetron 4 MG/2 ML Vial IV (20:18)
[2023-12-21 22:57] LABS: Bedside Glucose 143 mg/dL (74-106)
[2023-12-22] VITALS (9 sets, daily range): BP systolic 102–146; BP diastolic 47–76; PULSE 65–85; RESP 17–18; TEMP 36.7–37.2; O2SAT 89–97
[2023-12-22] MEDS: Ampicillin/Sulbactam 3 GM in 0.9% Normal Saline (100mL MB+) 100 ML IV ×4 (02:10→17:23)
[2023-12-22 03:36] LABS: Bedside Glucose 128 mg/dL (74-106)
[2023-12-22] MEDS: Metoclopramide 10 MG/2 ML Vial IV ×3 (05:44→17:22)
[2023-12-22 06:15] LABS: Absolute Neutrophil Count 12.3 X10^3/uL (2.0-7.7); Basophil# 0.03 X10^3/uL; Basophil% 0.2 % (0-1); Eosinophil# 0.12 X10^3/uL; Eosinophils% 0.8 % (0-5); Hematocrit 32.6 % (37-47); Hemoglobin 10.7 g/dL (12.0-15.0); Lymphocyte % 6.3 % (19-41); Mean Corp Hgb Conc 32.8 g/dL (32-36); Mean Corpuscular Hgb 29.6 pg (27.0-32.0); Mean Corpuscular Volume 90.3 fL (81-99); Mean Platelet Vol. 10.1 fl (6.2-12.0); Monocyte# 0.87 X10^3/uL; Monocyte% 6.1 % (0-10); NRBC Flagged by Analyzer 0 % (0-5); Neutrophil # 12.25 X10^3/uL (2.7-7.7); Platelet Count 217 K/mm3 (150-450); RBC Distribution Width CV 13.9 % (11.6-14.6); RBC Distribution Width SD 45.1 fl (35.1-43.9); Red Blood Count 3.61 M/mm3 (4.2-5.4); White Blood Count 14.3 K/mm3 (4.4-11.0)
[2023-12-22 06:29] LABS: Bedside Glucose 126 mg/dL (74-106)
[2023-12-22] MEDS: Furosemide 20 MG/2 ML VIAL IV (08:33)
[2023-12-22] MEDS: Pantoprazole Sodium 80 MG in 0.9% Normal Saline (100mL Bag) 80 ML 10 MG CONT INF ×2 (08:33→18:41)
[2023-12-22] MEDS: 0.9% Saline Lock 10 ML Syringe IV ×3 (08:33→18:44)
[2023-12-22] MEDS: Azithromycin 500 MG in Dextrose 5%-Water (250mL Bag) 250 ML 250 MG IV (09:54)
[2023-12-22 09:56] LABS: Anion Gap 7 (5-15); BUN 7 mg/dL (7-18); BUN/Creat Ratio 10.2 RATIO (10-20); Calcium,Total 8.1 mg/dL (8.5-10.1); Chloride 110 mmol/L (98-107); Creatinine, Serum 0.69 mg/dL (0.55-1.02); EST Glomerular Filtration Rate 87 mL/min (>60); Est Glom Filt Rate - Afr Amer 105 mL/min (>60); Estimated Creatinine Clearance 60.13 ml/min; Glucose 121 mg/dL (74-106); Potassium 3.3 mmol/L (3.5-5.1); Sodium Level 140 mmol/L (136-145)
[2023-12-22 12:14] LABS: Bedside Glucose 157 mg/dL (74-106)
[2023-12-22 13:07] LABS: Magnesium 2.1 mg/dL (1.6-2.6)
--- NOTE | 2023-12-22 16:03 | PCM.PN.HOSP ---
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17 / -72.17 106.66 / 106.66 Lab / Micro Data 12/22/23 05:58 12/22/23 05:58 Labs: Laboratory Results - last 24 hr 12/21/23 17:24: POC Glucose 158 H 12/21/23 22:40: POC Glucose 143 H 12/22/23 03:18: POC Glucose 128 H 12/22/23 05:58: WBC 14.3 H, RBC 3.61 L, Hgb 10.7 L, Hct 32.6 L, MCV 90.3, MCH 29.6, MCHC 32.8, RDW Std Deviation 45.1 H, RDW Coeff of Basilio 13.9, Plt Count 217, MPV 10.1, Immature Gran % (Auto) 0.600, Neut % (Auto) 86.0 H, Lymph % (Auto) 6.3 L, [place] % (Auto) 6.1, Eos % (Auto) 0.8, Baso % (Auto) 0.2, Absolute Neuts (auto) 12.3 H, Absolute Lymphs (auto) 0.90, Nucleated RBC % 0, Sodium 140, Potassium 3.3 L, Chloride 110 H, Carbon Dioxide 23.0, Anion Gap 7, BUN 7, Creatinine 0.69, Estim Creat Clear Calc 60.13, Est GFR (MDRD) Af Amer 105, Est GFR (MDRD) Non-Af 87, BUN/Creatinine Ratio 10.2, Glucose 121 H, Calcium 8.1 L, Phosphorus 2.0 L, Magnesium 2.1 12/22/23 06:10: POC Glucose 126 H 12/22/23 11:36: POC Glucose 157 H Micro: Microbiology 12/18/23 02:50 Gastric Fluid/Contents Gastric Occult Blood - Final Occult Blood Positive Radiography Diagnostic Testing: Radiology Impression Chest X-Ray 12/21/23 17:40 IMPRESSION: Right lower lobe pneumonia. Electronically Signed: Mina Funes MD at 18:41 EDT , Physical Exam Narrative Seen and examined. No acute change. Chest x-ray reviewed shows right lower lobe pneumonia. Looks tired and fatigued. She gets tired on moving to bathroom. N.p.o. as per assessment of speech therapist. She has history of lymphedema. Chronic large hiatus hernia with recurrence after fundoplication in [facility] long time ago. She follows Dr. Chow in [facility] gastroenterology. No fever. She had a fall and syncope. Denies recent symptoms of UTI. Had EGD Physical exam General: Alert, Oriented x3, Cooperative HEENT: Pale conjunctiva. Atraumatic, PERRLA, EOMI, Normocephalic Oral: Oral mucosa dry. No Gingival or Mucosal Lesions/ Ulcerations Neck: Supple, No JVD, Negative Carotid Bruits Chest wall/Lungs: Air entry diminished in bilateral lung bases. Bilateral coarse crepitations/wheezing in lung bases. Cardiovascular: Regular rate, Regular Rhythm, Normal S1, Normal S2, No M/G/R Abdomen: Bowel Sounds Present, Soft, Non Tender, Non-Distended : No dysuria. No renal angle tenderness. No suprapubic tenderness. Extremities: Chronic lymphedema lower extremity and upper extremities.Capillary Refill Less than 3 Seconds Skin: No rashes, No breakdown. Dry skin Musculoskeletal: No Tenderness to Palpation of Joints or Extremities. 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 Neurological: Cranial nerves II-XII grossly intact, DTR 2+/4. No acute focal neurological deficit. Psych/Mental Status: Flat affect. Assessment & Plan Assessment/Plan (1) Acute dehydration: (2) Acute prerenal azotemia: (3) Anticoagulant long-term use: (4) Essential hypertension: PLAN: Plan 78-year-old female was admitted for syncope on the day of admission. She passed out and fell at her dining room while going to the kitchen. Denies prodromal symptoms. She also had coffee ground emesis in the same day. She takes Advil in the morning and Tylenol in the evening for chest pain secondary to habitus hernia. Bilateral lower EXTR swelling due to lymphedema 1. Syncope, exact etiology unclear most likely due to GI bleed/ low BP: Chest x-ray initially reviewed and suboptimal with poor inspiratory volume. X-ray of hip and pelvis shows bilateral hip arthroplasty with no evidence of fracture or subluxation or dislocation. Resting heart rate in the mid to upper 60s but walking her to 112 on her Apple Watch. 1 L of normal saline was given in the ED for dehydration BP 112/70 heart rate 70/min. Orthostatic blood pressure did not show significant drop, systolic dropped to about 13 mm. But no significant change in heart rate. 12/18: Mild hypokalemia potassium 3.4. Sodium 135, hyponatremia: IV fluid and electrolytes are getting replaced. Discussed with the nursing staff 12/19: Syncope resolved. K3.6 and sodium 135. Continue electrolytes replacement. 12/20: Low potassium. Electrolyte replacement ordered. 12/21: Right lower lobe aspiration pneumonia: Patient started on Unasyn yesterday. Most likely after the aspiration event from hiatus hernia. 2. Acute GI bleed, upper may be from large hiatus hernia: Stool for occult blood positive. H&H 14.9/44%. Platelet count 503,000. Serial H&H does not show significant drop. GI consulted. On IV PPI prophylaxis. Hold anticoagulation. NG tube 12/18: NG tube was almost out yesterday in hiatus hernia sac therefore was removed. Plan for EGD today. Discussed with the communication instructor Dr. Ivey. 12/19: Patient had EGD on 12/18. Discussed with Dr. Ivey. Patient is high risk for repeat large hiatus hernia but has food residue/bezoar, esophageal benign appearing stenosis and grade C erosive esophagitis with bleeding. He recommended as patient can follow-up for [facility] surgeon and GI for Belkys's fundoplication surgery or palliative PEG placement with endoscopic hiatus hernia reduction/gastropexy 12/20: Since patient has aspirated from hiatus hernia or small vomiting of blood. Speech therapist recommended NPO. Started on IV Unasyn. Prior to that patient was started on IV Flagyl and Zithromax for hiatus hernia/gastroparesis. EGD show for residue in stomach. 12/21: Discussed with patient's PCP Dr. Garza. Requested to make early appointment with the patient's surgeon Dr. Ortiz who did surgery in the past. She also follows Dr. Chow. She will need minimally invasive surgery like gastropexy for hiatus hernia for symptom relief. Speech therapy to recommend about the diet. 3. Hypertension: Home diuretics and spironolactone held. Monitor BP as needed hydralazine IV ordered 4. Chronic hiatus hernia status post Belkys's fundoplication: Chest x-ray shows large hiatal salience with tip of NG tube and hernia. 5. 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 Bilateral DVT. DVT prophylaxis: SCDs ordered. Family discussion was done on 12/19 and advised to follow-up with the [facility] surgeon to get an opinion for endoscopic repair of hiatus hernia. Advance care planning: Discussed with patient and family advanced directives as well as CODE STATUS. Explained various CODE STATUS: FULL CODE, DNR CCA, DNR CCA with no intubation, and DNR CC- and what each meant. Patient elected to be a full code with CPR and intubation if warranted. Order was placed. 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 Charges/Coding Visit Charges Inpatient E&M: 72118 Subs Hosp L2
[2023-12-22 16:56] LABS: Bedside Glucose 132 mg/dL (74-106)
[2023-12-22] MEDS: Potassium Phosphate 40 MM in 0.9% Normal Saline (500mL Bag) 500 ML 62.5 MM IV (18:42)
[2023-12-22 22:34] LABS: Bedside Glucose 116 mg/dL (74-106)
[2023-12-23] MEDS: Ampicillin/Sulbactam 3 GM in 0.9% Normal Saline (100mL MB+) 100 ML IV ×5 (00:01→23:15)
[2023-12-23] MEDS: Metoclopramide 10 MG/2 ML Vial IV ×5 (00:01→23:15)
[2023-12-23 03:00] VITALS: BP 108/50; PULSE 69; RESP 18; TEMP 36.9; O2SAT 95
[2023-12-23] MEDS: Dext 5%-0.45% NS 1,000 ML 50 ML IV (03:04)
[2023-12-23] MEDS: Pantoprazole Sodium 80 MG in 0.9% Normal Saline (100mL Bag) 80 ML 10 MG CONT INF ×2 (04:47→19:41)
[2023-12-23 06:26] LABS: Bedside Glucose 120 mg/dL (74-106)
[2023-12-23 06:35] LABS: Absolute Lymphocyte Count 0.78 X10^3/uL (0.83-4.51); Absolute Neutrophil Count 8.7 X10^3/uL (2.0-7.7); Basophil# 0.02 X10^3/uL; Basophil% 0.2 % (0-1); Eosinophil# 0.25 X10^3/uL; Eosinophils% 2.4 % (0-5); Lymphocyte # 0.78 X10^3/ul (0.83-4.51); Lymphocyte % 7.4 % (19-41); Mean Corp Hgb Conc 32.3 g/dL (32-36); Mean Corpuscular Hgb 29.7 pg (27.0-32.0); Mean Platelet Vol. 10.5 fl (6.2-12.0); Monocyte# 0.74 X10^3/uL; NRBC Flagged by Analyzer 0 % (0-5); Neutrophil # 8.68 X10^3/uL (2.7-7.7); Neutrophil % 82.1 % (47-70); Platelet Count 212 K/mm3 (150-450); RBC Distribution Width CV 14.3 % (11.6-14.6); RBC Distribution Width SD 47.8 fl (35.1-43.9); Red Blood Count 3.37 M/mm3 (4.2-5.4); White Blood Count 10.6 K/mm3 (4.4-11.0)
[2023-12-23 07:04] LABS: Anion Gap 8 (5-15); BUN 9 mg/dL (7-18); Calcium,Total 7.8 mg/dL (8.5-10.1); Chloride 110 mmol/L (98-107); Creatinine, Serum 0.56 mg/dL (0.55-1.02); EST Glomerular Filtration Rate 110 mL/min (>60); Est Glom Filt Rate - Afr Amer 133 mL/min (>60); Estimated Creatinine Clearance 60.13 ml/min; Glucose 116 mg/dL (74-106); Phosphorus 3.2 mg/dL (2.5-4.9); Potassium 3.4 mmol/L (3.5-5.1); Sodium Level 141 mmol/L (136-145)
[2023-12-23 08:00] VITALS: O2SAT 95
[2023-12-23 09:00] VITALS: BP 114/60; PULSE 74; RESP 16; TEMP 36.8; O2SAT 97
[2023-12-23] MEDS: Azithromycin 500 MG in Dextrose 5%-Water (250mL Bag) 250 ML 250 MG IV (10:55)
--- NOTE | 2023-12-23 12:38 | PN.HOSP_ITS ---
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) Objective Data Objective Data Vital Signs: Vital Signs Temp Pulse Resp BP Pulse Ox O2 Del Method O2 Flow Rate 98.2 F 74 16 114/60 97 Room Air 3 12/23/23 09:00 12/23/23 09:00 12/23/23 09:00 12/23/23 09:00 12/23/23 09:00 12/23/23 09:00 12/23/23 08:00 Oxygen Flow Rate (L/min) 3 Oxygen Delivery Method Room Air Weight: 185 lb 12.784 oz Body Mass Index (BMI) 30.9 Intake & Output: Intake and Output for Last 24 Hours 12/21/23 12/22/23 12/23/23 23:59 23:59 23:59 Intake Total 2527.83 / 2527.83 818.66 / 938.66 1212.3333 / 1212.3333 Output Total 2600 / 2600 1200 / 1400 500 / 500 Balance -72.17 / -72.17 -381.34 / -461.34 712.3333 / 712.3333 Lab / Micro Data 12/23/23 05:10 12/23/23 05:10 Labs: Laboratory Results - last 24 hr 12/22/23 05:58: Phosphorus 2.0 L, Magnesium 2.1 12/22/23 16:38: POC Glucose 132 H 12/22/23 21:38: POC Glucose 116 H 12/23/23 05:10: WBC 10.6, RBC 3.37 L, Hgb 10.0 L, Hct 31.0 L, MCV 92.0, MCH 29.7, MCHC 32.3, RDW Std Deviation 47.8 H, RDW Coeff of Basilio 14.3, Plt Count 212, MPV 10.5, Immature Gran % (Auto) 0.900, Neut % (Auto) 82.1 H, Lymph % (Auto) 7.4 L, [place] % (Auto) 7.0, Eos % (Auto) 2.4, Baso % (Auto) 0.2, Absolute Neuts (auto) 8.7 H, Absolute Lymphs (auto) 0.78 L, Nucleated RBC % 0, Sodium 141, Potassium 3.4 L, Chloride 110 H, Carbon Dioxide 23.0, Anion Gap 8, BUN 9, Creatinine 0.56, Estim Creat Clear Calc 60.13, Est GFR (MDRD) Af Amer 133, Est GFR (MDRD) Non-Af 110, BUN/Creatinine Ratio 16.0, Glucose 116 H, Calcium 7.8 L, Phosphorus 3.2, Magnesium 2.0 12/23/23 06:04: POC Glucose 120 H Micro: Microbiology 12/18/23 02:50 Gastric Fluid/Contents Gastric Occult Blood - Final Occult Blood Positive Physical Exam Narrative Seen and examined. Speech therapist has not given final recommendation about the diet. Out of bed to chair. No acute change. Chest x-ray reviewed shows right lower lobe pneumonia. N.p.o. as per assessment of speech therapist. She has history of lymphedema. Chronic large hiatus hernia with recurrence after fundoplication in [facility] long time ago. Physical exam General: Alert, Oriented x3, Cooperative HEENT: Pale conjunctiva. Atraumatic, PERRLA, EOMI, Normocephalic Oral: Oral mucosa dry. No Gingival or Mucosal Lesions/ Ulcerations Neck: Supple, No JVD, Negative Carotid Bruits Chest wall/Lungs: Air entry diminished in bilateral lung bases. Breathing slightly better. No hypoxia bilateral coarse crepitation in lung bases. Cardiovascular: Regular rate, Regular Rhythm, Normal S1, Normal S2, No M/G/R Abdomen: Bowel Sounds Present, Soft, Non Tender, Non-Distended : No dysuria. No renal angle tenderness. No suprapubic tenderness. Extremities: Chronic lymphedema lower extremity and upper extremities.Capillary Refill Less than 3 Seconds Skin: No rashes, No breakdown. Dry skin Musculoskeletal: No Tenderness to Palpation of Joints or Extremities. 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 Neurological: Cranial nerves II-XII grossly intact, DTR 2+/4. No acute focal neurological deficit. Psych/Mental Status: Flat affect. Assessment & Plan Assessment/Plan (1) Acute dehydration: (2) Acute prerenal azotemia: (3) Anticoagulant long-term use: (4) Essential hypertension: PLAN: Plan 78-year-old female was admitted for syncope on the day of admission. She passed out and fell at her dining room while going to the kitchen. Denies prodromal symptoms. She also had coffee ground emesis in the same day. She takes Advil in the morning and Tylenol in the evening for chest pain secondary to habitus hernia. Bilateral lower EXTR swelling due to lymphedema 1. Syncope, exact etiology unclear most likely due to GI bleed/ low BP: Chest x-ray initially reviewed and suboptimal with poor inspiratory volume. X-ray of hip and pelvis shows bilateral hip arthroplasty with no evidence of fracture or subluxation or dislocation. Resting heart rate in the mid to upper 60s but walking her to 112 on her Apple Watch. 1 L of normal saline was given in the ED for dehydration BP 112/70 heart rate 70/min. Orthostatic blood pressure did not show significant drop, systolic dropped to about 13 mm. But no significant change in heart rate. 12/18: Mild hypokalemia potassium 3.4. Sodium 135, hyponatremia: IV fluid and electrolytes are getting replaced. Discussed with the nursing staff 12/19: Syncope resolved. K3.6 and sodium 135. Continue electrolytes replacement. 12/20: Low potassium. Electrolyte replacement ordered. 12/21: Right lower lobe aspiration pneumonia: Patient started on Unasyn yesterday. Most likely after the aspiration event from hiatus hernia. 12/22: K3.4, serum magnesium 2.0, phosphorus 3.2. Potassium replacement ordered. 2. Acute GI bleed, upper may be from large hiatus hernia: Stool for occult blood positive. H&H 14.9/44%. Platelet count 503,000. Serial H&H does not show significant drop. GI consulted. On IV PPI prophylaxis. Hold anticoagulation. NG tube 12/18: NG tube was almost out yesterday in hiatus hernia sac therefore was removed. Plan for EGD today. Discussed with the electric train driver Dr. Ivey. 12/19: Patient had EGD on 12/18. Discussed with Dr. Ivey. Patient is high risk for repeat large hiatus hernia but has food residue/bezoar, esophageal benign appearing stenosis and grade C erosive esophagitis with bleeding. He recommended as patient can follow-up for [facility] surgeon and GI for Belkys's fundoplication surgery or palliative PEG placement with endoscopic hiatus hernia reduction/gastropexy 12/20: Since patient has aspirated from hiatus hernia or small vomiting of blood. Speech therapist recommended NPO. Started on IV Unasyn. Prior to that patient was started on IV Flagyl and Zithromax for hiatus hernia/gastroparesis. EGD show for residue in stomach. 12/21: Discussed with patient's PCP Dr. Garza. Requested to make early appointment with the patient's surgeon Dr. Ortiz who did surgery in the past. She also follows Dr. Chow. She will need minimally invasive surgery like gastropexy for hiatus hernia for symptom relief. Speech therapy to recommend about the diet. 12/22: Patient got appointment with Dr. Ortiz on December 31 at about 2 PM. Advised to strictly follow-up. 3. Hypertension: Home diuretics and spironolactone held. Monitor BP as needed hydralazine IV ordered 4. Chronic hiatus hernia status post Belkys's fundoplication: Chest x-ray shows large hiatal hernia 5. 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 Bilateral DVT. DVT prophylaxis: SCDs ordered. Eliquis resumed 2.5 mg twice daily. Earlier it was held for acute GI bleed. Family discussion was done on 12/19 and advised to follow-up with the [facility] surgeon to get an opinion for endoscopic repair of hiatus hernia. Advance care planning: Discussed with patient and family advanced directives as well as CODE STATUS. Explained various CODE STATUS: FULL CODE, DNR CCA, DNR CCA with no intubation, and DNR CC- and what each meant. Patient elected to be a full code with CPR and intubation if warranted. Order was placed. 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 Charges/Coding Visit Charges Inpatient E&M: 45151 Subs Hosp L2
[2023-12-23 12:54] LABS: Bedside Glucose 159 mg/dL (74-106)
[2023-12-23] MEDS: APIXABAN 2.5 MG TABLET (WCH) PO (14:00)
[2023-12-23] MEDS: Potassium Chloride 10mEq/100mL 10 MEQ/100 ML IV.SOLN. 100 MEQ IV BOLUS ×2 (14:01→15:48)
[2023-12-23 15:00] VITALS: BP 127/52; PULSE 73; RESP 18; TEMP 36.4; O2SAT 98
[2023-12-23] MEDS: Insulin Lispro 100 UNIT/ML INSULN.PEN SC ×2 (17:21→20:04)
[2023-12-23 17:59] LABS: Bedside Glucose 180 mg/dL (74-106)
[2023-12-23] MEDS: Atorvastatin Calcium 10 MG Tablet PO (20:04)
[2023-12-23 21:00] VITALS: BP 118/60; PULSE 74; RESP 18; TEMP 36.6; O2SAT 97
[2023-12-23 22:47] LABS: Bedside Glucose 264 mg/dL (74-106)
[2023-12-23] MEDS: 0.9% Saline Lock 10 ML Syringe IV (23:16)
[2023-12-24 03:45] VITALS: BP 105/80; PULSE 65; RESP 18; TEMP 36.2; O2SAT 99
[2023-12-24] MEDS: Pantoprazole Sodium 80 MG in 0.9% Normal Saline (100mL Bag) 80 ML 10 MG CONT INF ×2 (04:53→16:16)
[2023-12-24] MEDS: Metoclopramide 10 MG/2 ML Vial IV ×4 (04:54→23:17)
[2023-12-24] MEDS: Levothyroxine 100 MCG Tablet PO (04:54)
[2023-12-24] MEDS: 0.9% Saline Lock 10 ML Syringe IV ×2 (04:54→23:18)
[2023-12-24] MEDS: Ampicillin/Sulbactam 3 GM in 0.9% Normal Saline (100mL MB+) 100 ML IV ×4 (04:55→23:17)
[2023-12-24 07:13] LABS: Bedside Glucose 157 mg/dL (74-106)
[2023-12-24 08:12] VITALS: O2SAT 95
[2023-12-24 09:22] VITALS: BP 118/57; PULSE 87; RESP 16; TEMP 36.8; O2SAT 98
[2023-12-24] MEDS: Azithromycin 500 MG in Dextrose 5%-Water (250mL Bag) 250 ML 250 MG IV (09:29)
[2023-12-24] MEDS: Insulin Glargine-YFGN 100 UNIT/ML Pen 30 UNIT SC (09:38)
[2023-12-24] MEDS: Insulin Lispro 100 UNIT/ML INSULN.PEN SC ×2 (11:41→16:21)
[2023-12-24 11:59] LABS: Bedside Glucose 256 mg/dL (74-106)
--- NOTE | 2023-12-24 14:17 | PCM.PN.HOSP ---
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) Objective Data Objective Data Vital Signs: Vital Signs Temp Pulse Resp BP Pulse Ox O2 Del Method O2 Flow Rate 98.2 F 87 16 118/57 L 98 Nasal Cannula 2 12/24/23 09:22 12/24/23 09:22 12/24/23 09:22 12/24/23 09:22 12/24/23 09:22 12/24/23 10:00 12/24/23 12:36 Oxygen Flow Rate (L/min) 2 Oxygen Delivery Method Nasal Cannula Weight: 185 lb 12.784 oz Body Mass Index (BMI) 30.9 Intake & Output: Intake and Output for Last 24 Hours 12/22/23 12/23/23 12/24/23 23:59 23:59 23:59 Intake Total 818.66 / 938.66 2795.1733 / 2795.1733 733 / 733 Output Total 1200 / 1400 900 / 900 300 / 300 Balance -381.34 / -461.34 1895.1733 / 1895.1733 433 / 433 Lab / Micro Data 12/23/23 05:10 12/23/23 05:10 Labs: Laboratory Results - last 24 hr 12/23/23 17:17: POC Glucose 180 H 12/23/23 20:03: POC Glucose 264 H 12/24/23 06:30: POC Glucose 157 H 12/24/23 11:40: POC Glucose 256 H Micro: Microbiology 12/18/23 02:50 Gastric Fluid/Contents Gastric Occult Blood - Final Occult Blood Positive Physical Exam Narrative Seen and examined. Discussed with the patient. Speech therapist recommended clear liquid and advance gradually but patient wants to keep clear liquid for now. Patient's family agreed for PEG tube for tomorrow AM which was communicated to Dr. Ivey [email or web address] past midnight. Physical exam General: Alert, Oriented x3, Cooperative HEENT: Pale conjunctiva. Atraumatic, PERRLA, EOMI, Normocephalic Oral: Oral mucosa dry. No Gingival or Mucosal Lesions/ Ulcerations Neck: Supple, No JVD, Negative Carotid Bruits Chest wall/Lungs: Air entry diminished in bilateral lung bases. No hypoxia. Mild bilateral coarse crepitation in lung bases. Cardiovascular: Regular rate, Regular Rhythm, Normal S1, Normal S2, No M/G/R Abdomen: Bowel Sounds Present, Soft, Non Tender, Non-Distended : No dysuria. No renal angle tenderness. No suprapubic tenderness. Extremities: Chronic lymphedema lower extremity and upper extremities.Capillary Refill Less than 3 Seconds Skin: No rashes, No breakdown. Dry skin Musculoskeletal: No Tenderness to Palpation of Joints or Extremities. Bilateral hip arthroplasty, degenerative arthritis. Neurological: Cranial nerves II-XII grossly intact, DTR 2+/4. No acute focal neurological deficit. Psych/Mental Status: Flat affect. Assessment & Plan Assessment/Plan (1) Acute dehydration: (2) Acute prerenal azotemia: (3) Anticoagulant long-term use: (4) Essential hypertension: PLAN: Plan 78-year-old female was admitted for syncope on the day of admission. She passed out and fell at her dining room while going to the kitchen. Denies prodromal symptoms. She also had coffee ground emesis in the same day. She takes Advil in the morning and Tylenol in the evening for chest pain secondary to hiatus hernia. Bilateral lower EXTR swelling due to lymphedema 1. Syncope, exact etiology unclear most likely due to GI bleed/ low BP: Chest x-ray initially reviewed and suboptimal with poor inspiratory volume. X-ray of hip and pelvis shows bilateral hip arthroplasty with no evidence of fracture or subluxation or dislocation. Resting heart rate in the mid to upper 60s but walking her to 112 on her Apple Watch. 1 L of normal saline was given in the ED for dehydration BP 112/70 heart rate 70/min. Orthostatic blood pressure did not show significant drop, systolic dropped to about 13 mm. But no significant change in heart rate. 12/18: Mild hypokalemia potassium 3.4. Sodium 135, hyponatremia: IV fluid and electrolytes are getting replaced. Discussed with the nursing staff 12/19: Syncope resolved. K3.6 and sodium 135. Continue electrolytes replacement. 12/20: Low potassium. Electrolyte replacement ordered. 12/21: Right lower lobe aspiration pneumonia: Patient started on Unasyn yesterday. Most likely after the aspiration event from hiatus hernia. 12/22: K3.4, serum magnesium 2.0, phosphorus 3.2. Potassium replacement ordered. 12/23: K similar 3.4. Potassium replacement ordered. Patient on clear liquid diet. 2. Acute GI bleed, upper may be from large hiatus hernia: Stool for occult blood positive. H&H 14.9/44%. Platelet count 503,000. Serial H&H does not show significant drop. GI consulted. On IV PPI prophylaxis. Hold anticoagulation. NG tube 12/18: NG tube was almost out yesterday in hiatus hernia sac therefore was removed. Plan for EGD today. Discussed with the sterile tech Dr. Ivey. 12/19: Patient had EGD on 12/18. Discussed with Dr. Ivey. Patient is high risk for repeat large hiatus hernia but has food residue/bezoar, esophageal benign appearing stenosis and grade C erosive esophagitis with bleeding. He recommended as patient can follow-up for [facility] surgeon and GI for Belkys's fundoplication surgery or palliative PEG placement with endoscopic hiatus hernia reduction/gastropexy 12/20: Since patient has aspirated from hiatus hernia or small vomiting of blood. Speech therapist recommended NPO. Started on IV Unasyn. Prior to that patient was started on IV Flagyl and Zithromax for hiatus hernia/gastroparesis. EGD show for residue in stomach. 12/21: Discussed with patient's PCP Dr. Garza. Requested to make early appointment with the patient's surgeon Dr. Ortiz who did surgery in the past. She also follows Dr. Chow. She will need minimally invasive surgery like gastropexy for hiatus hernia for symptom relief. Speech therapy to recommend about the diet. 12/22: Patient got appointment with Dr. Ortiz on December 31 at about 2 PM. Advised to strictly follow-up. 12/23: After family discussion, patient agreed for PEG tube which is planned for tomorrow AM. N.p.o. past midnight. Discussed with Dr. Ivey. On clear liquid diet 3. Hypertension: Home diuretics and spironolactone held. Monitor BP as needed hydralazine IV ordered 4. Chronic hiatus hernia status post Belkys's fundoplication: Chest x-ray shows large hiatal hernia 5. 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 Bilateral DVT. DVT prophylaxis: SCDs ordered. Eliquis resumed 2.5 mg twice daily. Earlier it was held for acute GI bleed. 12/23: Hold Eliquis. Family discussion was done on 12/19 and advised to follow-up with the [facility] surgeon to get an opinion for endoscopic repair of hiatus hernia. Advance care planning: Discussed with patient and family advanced directives as well as CODE STATUS. Explained various CODE STATUS: FULL CODE, DNR CCA, DNR CCA with no intubation, and DNR CC- and what each meant. Patient elected to be a full code with CPR and intubation if warranted. Order was placed. 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 Charges/Coding Visit Charges Inpatient E&M: 96360 Subs Hosp L2
[2023-12-24 14:55] VITALS: BP 113/57; PULSE 78; RESP 16; TEMP 36.8; O2SAT 99
[2023-12-24] MEDS: Potassium Chloride 40 MEQ in Dext 5%-0.45% NS 1,000 ML 50 MEQ IV (16:16)
[2023-12-24 17:14] LABS: Bedside Glucose 182 mg/dL (74-106)
[2023-12-24 20:00] VITALS: O2SAT 99
[2023-12-24] MEDS: Atorvastatin Calcium 10 MG Tablet PO (20:59)
[2023-12-24 21:00] VITALS: BP 128/60; PULSE 74; RESP 18; TEMP 36.6; O2SAT 95
[2023-12-24 21:34] LABS: Bedside Glucose 185 mg/dL (74-106)
[2023-12-24 22:35] VITALS: BMI 30.9
[2023-12-25] VITALS (12 sets, daily range): BP systolic 100–135; BP diastolic 55–85; PULSE 64–87; RESP 14–18; TEMP 36.1–37; O2SAT 94–97; BMI 30.9
[2023-12-25] MEDS: Pantoprazole Sodium 80 MG in 0.9% Normal Saline (100mL Bag) 80 ML 10 MG CONT INF ×2 (03:06→13:24)
[2023-12-25 03:32] LABS: Bedside Glucose 160 mg/dL (74-106)
[2023-12-25] MEDS: Ampicillin/Sulbactam 3 GM in 0.9% Normal Saline (100mL MB+) 100 ML IV ×3 (05:46→20:19)
[2023-12-25] MEDS: Metoclopramide 10 MG/2 ML Vial IV ×3 (05:46→20:14)
[2023-12-25 06:38] LABS: Bedside Glucose 155 mg/dL (74-106)
[2023-12-25 07:04] LABS: Absolute Lymphocyte Count 0.81 X10^3/uL (0.83-4.51); Absolute Neutrophil Count 4.8 X10^3/uL (2.0-7.7); Basophil# 0.03 X10^3/uL; Basophil% 0.4 % (0-1); Eosinophil# 0.36 X10^3/uL; Eosinophils% 5.3 % (0-5); Hematocrit 32.5 % (37-47); Hemoglobin 10.5 g/dL (12.0-15.0); Lymphocyte # 0.81 X10^3/ul (0.83-4.51); Lymphocyte % 11.9 % (19-41); Mean Corp Hgb Conc 32.3 g/dL (32-36); Mean Corpuscular Volume 92.9 fL (81-99); Mean Platelet Vol. 9.7 fl (6.2-12.0); Monocyte# 0.73 X10^3/uL; Monocyte% 10.7 % (0-10); NRBC Flagged by Analyzer 0 % (0-5); Neutrophil # 4.83 X10^3/uL (2.7-7.7); Platelet Count 220 K/mm3 (150-450); RBC Distribution Width CV 14.1 % (11.6-14.6); RBC Distribution Width SD 47.3 fl (35.1-43.9); White Blood Count 6.8 K/mm3 (4.4-11.0)
[2023-12-25 07:25] LABS: Anion Gap 10 (5-15); BUN 5 mg/dL (7-18); BUN/Creat Ratio 8.5 RATIO (10-20); Calcium,Total 8.1 mg/dL (8.5-10.1); Chloride 108 mmol/L (98-107); Creatinine, Serum 0.59 mg/dL (0.55-1.02); EST Glomerular Filtration Rate 105 mL/min (>60); Est Glom Filt Rate - Afr Amer 127 mL/min (>60); Estimated Creatinine Clearance 60.13 ml/min; Glucose 144 mg/dL (74-106); Potassium 3.3 mmol/L (3.5-5.1); Sodium Level 140 mmol/L (136-145)
[2023-12-25] MEDS: Azithromycin 500 MG in Dextrose 5%-Water (250mL Bag) 250 ML 250 MG IV (10:37)
[2023-12-25] MEDS: Acetaminophen 325 MG Tablet 650 MG PO (13:13)
[2023-12-25] MEDS: 0.9% Saline Lock 10 ML Syringe IV ×2 (13:14→20:20)
[2023-12-25 14:39] LABS: Bedside Glucose 104 mg/dL (74-106)
[2023-12-25] MEDS: 0.9% Normal Saline (1000mL) 1,000 ML 15 ML IV (16:35)
[2023-12-25 16:44] LABS: Bedside Glucose 98 mg/dL (74-106)
--- NOTE | 2023-12-25 16:47 | PRE.ANES_ITS ---
ASA Classification* ASA Classification ASA Classification: 3 Assessment & Plan Anesthesia* Anesthesia Assessment Anesthesia Assessment: Discussed sedation and/or anesthesia options, risks, benefits, and alternatives with patient/parents/legal guardian/POA. Questions invited. The patient/parents/legal guardian/POA seems to understand and agrees to proceed with anesthesia plan. Reviewed the physical assessment, medical history, allergy history and patient home medications list prior to surgery/procedure/anesthetic and documented any changes. Performed airway and anesthesia risk assessments. Anesthesia Type Anesthesia Type: MAC History Source History Obtained from:: Patient and Chart Anesthesia Focused Assessment* Temperature: 98.2 F Pulse Rate: 73 Blood Pressure: 120/66 Respiratory Rate: 18 Pulse Ox: 97 Oxygen Delivery Method: Room Air Airway Assessment Mouth opens: >3 cm Mallampati Score: IV Teeth Condition: Partial (Upper partial is out.) Neck Range of motion (ROM): Limited ROM (Decreased extension.) Focused Labs Anesthesia Preop lab: CBC WBC 6.8 K/mm3 (4.4-11.0) 12/25/23 06:13 RBC 3.50 M/mm3 (4.2-5.4) L 12/25/23 06:13 Hgb 10.5 g/dL (12.0-15.0) L 12/25/23 06:13 Hct 32.5 % (37-47) L 12/25/23 06:13 Plt Count 220 K/mm3 (150-450) 12/25/23 06:13 CHEMISTRY Potassium 3.3 mmol/L (3.5-5.1) L 12/25/23 06:13 Sodium 140 mmol/L (136-145) 12/25/23 06:13 Magnesium 2.0 mg/dL (1.6-2.6) 12/23/23 05:10 Phosphorus 3.2 mg/dL (2.5-4.9) 12/23/23 05:10 BUN 5 mg/dL (7-18) L 12/25/23 06:13 Creatinine 0.59 mg/dL (0.55-1.02) 12/25/23 06:13 Glucose 144 mg/dL (74-106) H 12/25/23 06:13 POC Glucose 98 mg/dL (74-106) 12/25/23 16:14 TSH 2.810 uIU/mL (0.358-3.740) 12/19/23 05:12 COAG PT 12.4 SECONDS (11.7-14.9) 02/15/23 19:20 Pre-Assessment Diagnosis/Proposed Procedure Planned Operative Procedure(s): Esophagogastroduodenoscopy with percutaneous endoscopic gastrostomy tube. Anesthesia History Anesthesia History - charter coordinator: Anesthesia History - charter coordinator Hx Hospitalization No 05/15/20 14:27 Any Problems With Anesthesia Yes: Post back surgery pt 12/24/23 22:38 went into AFIB Cholinesterase deficiency No 12/24/23 22:38 You/Your Family Experience No 12/24/23 22:38 fever (hyperthermia) with Relationship Recent Exposure to Contagious No 12/24/23 22:38 Disease Does patient have nerve No 12/24/23 22:38 stimulator Patient instructed to have device shut off --Does patient have Pacemaker No 12/25/23 16:30 or ICD? When Was Last Pacemaker Check QUESTION #4 FULL TEXT: You/Your Family Experience fever (hyperthermia) with Anesthesia Last Oral Intake Last Oral intake: Last Oral Intake NPO since 00:01 12/25/23 16:30 Meds taken in AM with sips of No 12/25/23 16:30 water? Meds patient instructed to take am of surgery PONV PONV - charter coordinator: PONV - charter coordinator Female HX of Motion Sickness HX of N/V After Surgery Non-Smoker Duration of Surgery greater than 60 minutes Number of Risk Factors PONV Score Height & Weight Height & Weight: Anesthesia: Height & Weight Height 5 ft 5 in 12/25/23 16:30 Weight: 84.277 kg 12/25/23 16:30 Body Mass Index (BMI) 30.9 12/25/23 16:30 Respiratory Assessment Respiratory Assessment - charter coordinator: Respiratory Tract Infection Hx - charter coordinator Hx Respiratory Tract Infection No 12/24/23 22:38 Any additional information?: Yes Hx Respiratory Tract Infection: Yes (Patient arriaga s had some aspiration pneumonia noted in the past week. No oxygen) STOP Sleep Apnea STOP Sleep Apnea - charter coordinator: STOP Sleep Apnea - charter coordinator Hx Hypertension No 12/20/23 15:08 Hx Sleep Apnea No 12/19/23 13:20 CPAP Yes 12/19/23 13:10 BIPAP No 12/03/23 23:45 Do you snore loudly (louder No 12/17/23 18:23 than talking or can be heard Do you often feel tired/ No 12/17/23 18:23 fatigued/ sleepy during daytime? Has anyone observed you stop No 12/17/23 18:23 breathing during sleep? STOP Results Negative 12/19/23 13:10 QUESTION #5 FULL TEXT : Do you snore loudly (louder than talking or can be heard through closed doors)? 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 Specify any problems Hx of Preganancy in last 3 No 12/17/23 18:23 Months Nurse Filling Out Transfusion ZBEAM 12/17/23 18:23 & Questions: Date: 12/17/23 12/17/23 18:23 Time: 18:27 12/17/23 18:23 Patient unable to answer at this time (ie. confused, unrespo /Reproduction History /Reproductive History - charter coordinator: /Reproductive Hx- charter coordinator Hx Now No 12/24/23 22:38 Gestational Age (in weeks): EDC: Hx Hx Para Hx Section SAB No 12/24/23 22:38 Active Medications Active Medications: Current Medications Generic Name Dose Route Start Last Admin Trade Name Freq PRN Reason Stop Dose Admin Acetaminophen 650 mg 12/21/23 08:15 12/25/23 13:13 Acetaminophen 325 Mg Tablet PO 650 mg Q6H PRN PRN Administration pain 1-10/fever/headache Acetaminophen 650 mg 12/22/23 00:01 Acetaminophen 650 Mg Suppository RC Q4H PRN PRN Fever, pain 1-10 Albuterol/Ipratropium 3 ml 12/21/23 08:18 12/21/23 09:11 Ipratropium/Albuterol Sulfate 3 Ml Ampul.Neb INHALATION 3 ml Q4H.RT PRN Administration SHORTNESS OF BREATH Apixaban 2.5 mg 12/23/23 12:50 12/24/23 09:19 Apixaban 2.5 Mg Tablet ([facility]) PO Not Given BID JCARLOS Atorvastatin Calcium 10 mg 12/17/23 22:00 12/24/23 20:59 Atorvastatin Calcium 10 Mg Tablet PO 10 mg QHS JCARLOS Administration Glucagon 1 mg 12/17/23 18:21 Glucagon 1 Mg/Ml Syringe IM X1 PRN Hypoglycemia Protocol Hydralazine HCl 5 mg 12/18/23 10:47 Hydralazine 20 Mg/Ml Vial IV Q4H PRN PRN SBP > 180 Protocol Pantoprazole Sodium 80 mg/ 100 mls @ 10 mls/hr 12/17/23 15:45 12/25/23 13:24 Sodium Chloride CONT INF 10 mls/hr Q10H JCARLOS Administration Dextrose 250 mls @ 0 mls/hr 12/17/23 18:21 Dextrose 10%-Water IV .Q0M PRN HYPOGLYCEMIA Protocol As Directed Azithromycin 500 mg/ Dextrose 255 mls @ 250 mls/hr 12/19/23 13:05 12/25/23 11:45 IV Infused Q24 JCARLOS Infusion Ampicillin Sodium/Sulbactam 112 mls @ 150 mls/hr 12/21/23 09:00 12/25/23 14:10 Sodium 3 gm/ Sodium Chloride IV Infused Q6 JCARLOS Infusion Sodium Chloride 250 mls @ 15 mls/hr 12/21/23 14:32 IV .[id number] PRN Additional IVPB Infusion Sodium Chloride 250 mls @ 15 mls/hr 12/21/23 14:32 IV .[id number] PRN Saline Flush Potassium Chloride 40 meq/ 1,020 mls @ 50 mls/hr 12/24/23 09:30 12/25/23 16:32 Dextrose/Sodium Chloride IV Infused .[id number] JCARLOS Infusion Sodium Chloride 1,000 mls @ 15 mls/hr 12/25/23 16:30 12/25/23 16:35 IV 15 mls/hr .Q48H JCARLOS Administration Insulin Glargine 30 unit 12/22/23 10:00 12/24/23 09:38 Insulin Glargine-Yfgn 100 Unit/Ml Pen SC 30 unit QAM JCARLOS Administration Insulin Human Lispro 0 unit 12/20/23 22:00 12/25/23 16:32 Insulin Lispro 100 Unit/Ml Insuln.Pen SC Not Given ACHS [facility] Protocol Levothyroxine Sodium 100 mcg 12/18/23 06:00 12/25/23 00:05 Levothyroxine 100 Mcg Tablet PO Not Given 0600 [facility] Melatonin 3 mg 12/17/23 18:21 Melatonin 3 Mg Tablet PO QHS PRN PRN INSOMNIA Metoclopramide HCl 10 mg 12/19/23 18:00 12/25/23 13:14 Metoclopramide 10 Mg/2 Ml Vial IV 10 mg Q6 JCARLOS Administration Ondansetron HCl 4 mg 12/17/23 18:21 12/21/23 20:18 Ondansetron 4 Mg/2 Ml Vial IV 4 mg Q8H PRN PRN Administration NAUSEA/VOMITING Senna/Docusate Sodium 2 tablet 12/17/23 18:21 Senna/Docusate Sodium 1 Tablet PO BID PRN PRN Constipation Sodium Chloride 10 - 40 ml 12/17/23 18:31 12/25/23 13:14 0.9% Saline Lock 10 Ml Syringe IV 20 ml UD PRN Administration SALINE FLUSH PFSH Medical History JHONY (obstructive sleep apnea) Obesity (BMI 30-39.9) Back pain History of venous thromboembolism Left-sided chest wall pain Venous insufficiency Hiatal hernia Esophageal spasm Edema JHONY (obstructive sleep apnea) History of basal cell carcinoma (BCC) History of DVT (deep vein thrombosis) Seizure disorder Osteoarthritis Essential hypertension GERD (gastroesophageal reflux disease) Parkinsons disease Lung disease Kidney disease Hypothyroidism Sleep apnea IBS (irritable bowel syndrome) Depression Asthma Obesity (BMI 30.0-34.9) Lumbar back pain Premature atrial contractions COPD (chronic obstructive pulmonary disease) Hyperlipidemia Diabetes mellitus type II, controlled History of pulmonary embolism Symptomatic bradycardia Home Medications ?Medication ?Instructions ?Recorded ?Last Taken ?Type omeprazole 20 mg capsule,delayed 20 mg PO DAILY ACID REFLUX 06/19/17 07/04/23 History release simvastatin 20 mg tablet 20 mg PO QHS cholesterol 90 days 09/01/17 07/03/23 History #90 tabs inhalational spacing device #1 ea 01/23/21 Unknown Rx (POCKET CHAMBER spacer) insulin glargine 100 unit/mL (3 90 unit subcut QAM diabetes 06/02/21 07/04/23 History mL) subcutaneous pen (Lantus Solostar U-100 Insulin) levothyroxine 100 mcg tablet 100 mcg PO DAILY THYROID 08/31/21 07/04/23 History d-mannose 500 mg capsule 500 mg PO DAILY 07/11/23 Unknown History spironolactone 25 mg tablet 25 mg PO DAILY #90 tabs 07/11/23 Unknown Rx apixaban 5 mg tablet (Eliquis) 5 mg PO BID blood thinner #60 tabs 08/03/23 11/26/23 Rx albuterol sulfate 90 mcg/actuation 2 puff inhalation Q6H PRN 08/16/23 Unknown History aerosol inhaler shortness of breath or wheezing furosemide 40 mg tablet 40 mg PO .BIDLX WATER PILL 08/16/23 Unknown History potassium chloride 20 mEq 20 meq PO DAILY 08/16/23 Unknown History tablet,extended release(part/cryst) metolazone 5 mg tablet 5 mg PO DAILY 11/08/23 Unknown History Allergy/AdvReac Type Severity Reaction Status Date / Time nitrofurantoin Allergy Hives Verified 12/17/23 14:07 macrocrystalline (From Macrodantin) tree and shrub pollen Allergy Hives Verified 12/17/23 14:07 rosuvastatin (From Crestor) AdvReac Severe Muscle Verified 12/12/23 10:21 weakness colesevelam (From WelChol) AdvReac Intermediate nausea Verified 12/17/23 14:07 nitrofurantoin (From AdvReac Intermediate Hives Verified 12/17/23 14:07 Furadantin) metformin AdvReac Unknown Gi side Verified 12/17/23 14:07 effects Family History Father CAD (coronary artery disease) Diabetes Myocardial infarction Alzheimers disease Hypertension Parkinson's disease Cancer melanoma History of blood clots Mother Diabetes AAA (abdominal aortic aneurysm) Bleeding disorder Colon cancer Thyroid disorder Brother Multiple sclerosis Skin cancer Surgical History History of tonsillectomy and adenoidectomy Hx of lumbar discectomy History of right hip replacement (~07/08/15) History of lumbar fusion (~2012) History of Belkys fundoplication Hx of hernia repair History of cholecystectomy Social History household members: spouse and none Smoking Status: Never smoker alcohol intake: never substance use type: does not use diet: diabetic and gluten free caffeine: No what type of physical activity do you participate in: none seatbelt use: always do you feel safe at home: Yes Review of Systems (Anesthesia) ROS Narrative System reviewed and no additional complaints, except as documented.
--- NOTE | 2023-12-25 17:20 | PCM.PN.HOSP ---
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 Objective Data Objective Data Vital Signs: Vital Signs Temp Pulse Resp BP Pulse Ox O2 Del Method O2 Flow Rate 98.2 F 73 18 120/66 97 Room Air 2 12/25/23 16:57 12/25/23 16:57 12/25/23 16:57 12/25/23 16:57 12/25/23 16:57 12/25/23 16:57 12/25/23 16:57 Oxygen Flow Rate (L/min) 2 Oxygen Delivery Method Room Air Weight: 84.277 kg Body Mass Index (BMI) 30.9 Intake & Output: Intake and Output for Last 24 Hours 12/23/23 12/24/23 12/25/23 23:59 23:59 23:59 Intake Total 2795.1733 / 2795.1733 945 / 945 1826.5 / 1826.5 Output Total 900 / 900 450 / 850 750 / 750 Balance 1895.1733 / 1895.1733 495 / 95 1076.5 / 1076.5 Lab / Micro Data 12/25/23 06:13 12/25/23 06:13 Labs: Laboratory Results - last 24 hr 12/24/23 20:58: POC Glucose 185 H 12/25/23 03:10: POC Glucose 160 H 12/25/23 05:45: POC Glucose 155 H 12/25/23 06:13: WBC 6.8, RBC 3.50 L, Hgb 10.5 L, Hct 32.5 L, MCV 92.9, MCH 30.0, MCHC 32.3, RDW Std Deviation 47.3 H, RDW Coeff of Basilio 14.1, Plt Count 220, MPV 9.7, Immature Gran % (Auto) 0.700, Neut % (Auto) 71.0 H, Lymph % (Auto) 11.9 L, [place] % (Auto) 10.7 H, Eos % (Auto) 5.3 H, Baso % (Auto) 0.4, Absolute Neuts (auto) 4.8, Absolute Lymphs (auto) 0.81 L, Nucleated RBC % 0, Sodium 140, Potassium 3.3 L, Chloride 108 H, Carbon Dioxide 22.0, Anion Gap 10, BUN 5 L, Creatinine 0.59, Estim Creat Clear Calc 60.13, Est GFR (MDRD) Af Amer 127, Est GFR (MDRD) Non-Af 105, BUN/Creatinine Ratio 8.5 L, Glucose 144 H, Calcium 8.1 L 12/25/23 11:59: POC Glucose 104 12/25/23 16:14: POC Glucose 98 Micro: Microbiology 12/18/23 02:50 Gastric Fluid/Contents Gastric Occult Blood - Final Occult Blood Positive Physical Exam Const alert, oriented x3, no apparent distress and average body habitus General Appearance: cooperative, well kempt and well developed Orientation / Consciousness: awake, oriented to person, oriented to place and oriented to time HEENT normocephalic, head/scalp atraumatic and moist oral mucous membranes Eyes PERRL, EOMs intact bilaterally and conjunctivae normal Neck supple, no JVD, thyroid normal and no carotid bruits General: trachea midline Resp normal respiratory effort, no retractions, no use of accessory muscles and clear to auscultation bilaterally Auscultation: Negative for rales, rhonchi or wheezes Cardio regular rate, regular rhythm, S1 normal heart sound, S2 normal heart sound, no rub and no gallops GI normal to inspection, nondistended, normoactive bowel sounds, soft to palpation, non-tender and non-distended Extremity no clubbing, cyanosis or edema Skin no rashes or lesions noted General Skin Exam: no breakdown Neuro oriented x3, CN's II-XII intact bilaterally, no focal motor deficits and no sensory deficits noted Sensorium / Orientation: awake and alert Speech: speech normal Psych affect normal Assessment & Plan Assessment/Plan (1) Syncope due to orthostatic hypotension: PLAN: Plan 1. Syncope-secondary to hypotension from GI bleed, blood pressure stable at this time, continue present medications #2 acute GI bleed-secondary to erosive esophagitis with bleeding-hemoglobin stable at this time #3 large hiatal hernia-patient will have a PEG tube inserted today for nutritional support #4 essential hypertension-patient's diuretics are being held at this time #5 suspected aspiration pneumonia-patient is presently on Unasyn, repeat patient's chest x-ray tomorrow Total clinical time spent by myself addressing patient's medical issues, reviewing all of her data, and collaborating with patient's care team: 35 minutes Charges/Coding Visit Charges Inpatient E&M: 71163 Subs Hosp L2
--- NOTE | 2023-12-25 18:01 | PN.GI_ITS ---
Subjective Subjective Patient has been n.p.o. for PEG tube placement today. Objective Data Objective Data Vital Signs: Vital Signs Temp Pulse Resp BP Pulse Ox O2 Del Method O2 Flow Rate 98.2 F 73 18 120/66 97 Room Air 2 12/25/23 16:57 12/25/23 16:57 12/25/23 16:57 12/25/23 16:57 12/25/23 16:57 12/25/23 16:57 12/25/23 16:57 Oxygen Flow Rate (L/min) 2 Oxygen Delivery Method Room Air Weight: 185 lb 12.784 oz Body Mass Index (BMI) 30.9 Intake & Output: Intake and Output for Last 24 Hours 12/23/23 12/24/23 12/25/23 23:59 23:59 23:59 Intake Total 2795.1733 / 2795.1733 945 / 945 1826.5 / 1826.5 Output Total 900 / 900 450 / 850 750 / 750 Balance 1895.1733 / 1895.1733 495 / 95 1076.5 / 1076.5 Lab / Micro Data 12/25/23 06:13 12/25/23 06:13 Labs: Laboratory Results - last 24 hr 12/24/23 20:58: POC Glucose 185 H 12/25/23 03:10: POC Glucose 160 H 12/25/23 05:45: POC Glucose 155 H 12/25/23 06:13: WBC 6.8, RBC 3.50 L, Hgb 10.5 L, Hct 32.5 L, MCV 92.9, MCH 30.0, MCHC 32.3, RDW Std Deviation 47.3 H, RDW Coeff of Basilio 14.1, Plt Count 220, MPV 9.7, Immature Gran % (Auto) 0.700, Neut % (Auto) 71.0 H, Lymph % (Auto) 11.9 L, Mcleod % (Auto) 10.7 H, Eos % (Auto) 5.3 H, Baso % (Auto) 0.4, Absolute Neuts (auto) 4.8, Absolute Lymphs (auto) 0.81 L, Nucleated RBC % 0, Sodium 140, P otassium 3.3 L, Chloride 108 H, Carbon Dioxide 22.0, Anion Gap 10, BUN 5 L, Creatinine 0.59, Estim Creat Clear Calc 60.13, Est GFR (MDRD) Af Amer 127, Est GFR (MDRD) Non-Af 105, BUN/Creatinine Ratio 8.5 L, Glucose 144 H, Calcium 8.1 L 12/25/23 11:59: POC Glucose 104 12/25/23 16:14: POC Glucose 98 Micro: Microbiology 12/18/23 02:50 Gastric Fluid/Contents Gastric Occult Blood - Final Occult Blood Positive Physical Exam Const alert, oriented x3, no apparent distress and average body habitus General Appearance: cooperative, well kempt and well developed Orientation / Consciousness: awake, oriented to person, oriented to place and oriented to time HEENT normocephalic, head/scalp atraumatic and moist oral mucous membranes Eyes PERRL, EOMs intact bilaterally and conjunctivae normal Neck supple, no JVD, thyroid normal and no carotid bruits General: trachea midline Resp normal respiratory effort, no retractions, no use of accessory muscles and clear to auscultation bilaterally Auscultation: Negative for rales, rhonchi or wheezes Cardio regular rate, regular rhythm, S1 normal heart sound, S2 normal heart sound, no rub and no gallops GI normal to inspection, nondistended, normoactive bowel sounds, soft to palpation, non-tender and non-distended Extremity no clubbing, cyanosis or edema Skin no rashes or lesions noted General Skin Exam: no breakdown Neuro oriented x3, CN's II-XII intact bilaterally, no focal motor deficits and no sensory deficits noted Sensorium / Orientation: awake and alert Speech: speech normal Psych affect normal Assessment & Plan Assessment/Plan (1) Acute dehydration: (2) Acute prerenal azotemia: (3) Anticoagulant long-term use: (4) Essential hypertension: PLAN: Plan 78-year-old female was admitted for syncope on the day of admission. She passed out and fell at her dining room while going to the kitchen. Denies prodromal symptoms. She also had coffee ground emesis in the same day. She takes Advil in the morning and Tylenol in the evening for chest pain secondary to hiatus hernia. Bilateral lower EXTR swelling due to lymphedema Acute GI bleed, upper may be from large hiatus hernia: Stool for occult blood positive. H&H 14.9/44%. Platelet count 503,000. Serial H&H does not show significant drop. On IV PPI prophylaxis. Hold anticoagulation. NG tube - Patient had EGD on 12/18. . Patient is high risk for repeat large hiatus hernia but has food residue/bezoar, esophageal benign appearing stenosis and grade C erosive esophagitis with bleeding. He recommended as patient can follow-up for [facility] surgeon and GI for Belkys's fundoplication surgery or palliative PEG placement with endoscopic hiatus hernia reduction/gastropexy - Since patient has aspirated from hiatus hernia or small vomiting of blood. Speech therapist recommended NPO. Started on IV Unasyn. Prior to that patient was started on IV Flagyl and Zithromax for hiatus hernia/gastroparesis. EGD show for residue in stomach. 9After family discussion, patient agreed for PEG tube Charges/Coding Visit Charges Inpatient E&M: 40715 Subs Hosp L3
--- NOTE | 2023-12-25 18:46 | PCM.POST.ANE ---
Anesthesia: Postop Eval I Current Vital Signs Temperature: 97 F Pulse Rate: 83 Blood Pressure: 133/66 Respiratory Rate: 18 Pulse Ox: 94 Oxygen Delivery Method: Room Air Assessment Airway patent: Yes Spontaneous unlabored respirations: Yes Mental status: Awake and Calm nausea: No Vomiting: No Anesthesia Complication: No Fluid Hydration Crystalloid volume administer (ml): 400 Total IV fluid infused: 400 Progress Note Anesthesia document: Postop Eval 1 completed: Yes
--- NOTE | 2023-12-25 18:47 | POSTOPAN2_ITS ---
Anesthesia Postop Eval I Sum Postop Eval Completion status Anesthesia document: Postop Eval 1 completed: Yes Anesthesia Postop Eval I Summary Anesthesia Postop Eval I Summary: Anesthesia Postop Eval I: Assessment Summary Airway patent Yes 12/25/23 18:47 ROTARY DRIER OPERATOR.MDOT Spontaneous unlabored Yes 12/25/23 18:47 ROTARY DRIER OPERATOR.MDOT respirations Mental status Awake,Calm 12/25/23 18:47 ROTARY DRIER OPERATOR.MDOT nausea No 12/25/23 18:47 ROTARY DRIER OPERATOR.MDOT Vomiting No 12/25/23 18:47 ROTARY DRIER OPERATOR.MDOT Anesthesia Postop Eval I: Fluid Summary Crystalloid volume administer 400 12/25/23 18:47 ROTARY DRIER OPERATOR.MDOT (ml) Colloids volume administered ( ml) Blood Product volume administered (ml) Total IV fluid infused 400 12/25/23 18:47 ROTARY DRIER OPERATOR.MDOT Anesthesia Postop Eval I: Summary Notes Anesthesia Complication No 12/25/23 18:47 ROTARY DRIER OPERATOR.MDOT Anesthesia Complication Comment: Post-operative progress note Anesthesia: Postop Eval II Evaluation Mental status: Awake and Calm Pain Level: 0 nausea: No Vomiting: No Complications Anesthesia Complication: No
--- NOTE | 2023-12-25 18:47 | PCM.POSTANE2 ---
Anesthesia Postop Eval I Sum Postop Eval Completion status Anesthesia document: Postop Eval 1 completed: Yes Anesthesia Postop Eval I Summary Anesthesia Postop Eval I Summary: Anesthesia Postop Eval I: Assessment Summary Airway patent Yes 12/25/23 18:47 SHOE SALESMAN.MDOT Spontaneous unlabored Yes 12/25/23 18:47 SHOE SALESMAN.MDOT respirations Mental status Awake,Calm 12/25/23 18:47 SHOE SALESMAN.MDOT nausea No 12/25/23 18:47 SHOE SALESMAN.MDOT Vomiting No 12/25/23 18:47 SHOE SALESMAN.MDOT Anesthesia Postop Eval I: Fluid Summary Crystalloid volume administer 400 12/25/23 18:47 SHOE SALESMAN.MDOT (ml) Colloids volume administered ( ml) Blood Product volume administered (ml) Total IV fluid infused 400 12/25/23 18:47 SHOE SALESMAN.MDOT Anesthesia Postop Eval I: Summary Notes Anesthesia Complication No 12/25/23 18:47 SHOE SALESMAN.MDOT Anesthesia Complication Comment: Post-operative progress note Anesthesia: Postop Eval II Evaluation Mental status: Awake and Calm Pain Level: 0 nausea: No Vomiting: No Complications Anesthesia Complication: No
--- NOTE | 2023-12-25 18:48 | OP.CCLET_ITS ---
12/25/2023 Gael Garza [id number] [facility] [place] [address] Re : Upper GI endoscopy procedure for Aga Walters Dear Dr. Garza This procedure was performed on Monday, December 25, 2023. My impressions and recommendations are as follows: Impressions : - Tortuous esophagus. - Food in the upper third of the esophagus, in the middle third of the esophagus and in the lower third of the esophagus. Removal was successful. - Large hiatal hernia. - No gross lesions in the first portion of the duodenum. - An endoscopically removable PEG placement was successfully completed. Recommendations : - Return patient to hospital lin for ongoing care. - Clear liquid diet today. - Continue present medications. My findings are described in the full procedure note, which is enclosed. If I can be of further assistance, please feel free to contact me at . Sincerely, Andrew Ivey, 12/25/2023 6:48:16 PM This report has been signed electronically.
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
--- NOTE | 2023-12-25 20:27 | ANES.CONFIRM ---
Anesthesia: Confirm Documents Multiple Procedures on Account (2) Confirmed Documents: Yes
[2023-12-25] MEDS: Atorvastatin Calcium 10 MG Tablet PO (21:39)
[2023-12-25 22:40] LABS: Bedside Glucose 80 mg/dL (74-106)
[2023-12-26] VITALS (7 sets, daily range): BP systolic 116–130; BP diastolic 55–66; PULSE 58–87; RESP 13–18; TEMP 36.6–37.4; O2SAT 92–97
[2023-12-26] MEDS: Metoclopramide 10 MG/2 ML Vial IV ×3 (00:28→11:32)
[2023-12-26] MEDS: Pantoprazole Sodium 80 MG in 0.9% Normal Saline (100mL Bag) 80 ML 10 MG CONT INF (00:29)
[2023-12-26] MEDS: Ampicillin/Sulbactam 3 GM in 0.9% Normal Saline (100mL MB+) 100 ML IV ×3 (00:32→11:42)
[2023-12-26] MEDS: Potassium Chloride 40 MEQ in Dext 5%-0.45% NS 1,000 ML 50 MEQ IV (01:38)
[2023-12-26] MEDS: 0.9% Saline Lock 10 ML Syringe IV ×2 (01:40→11:32)
[2023-12-26 04:58] LABS: Bedside Glucose 122 mg/dL (74-106)
--- NOTE | 2023-12-26 05:55 | RAD_ITS ---
INDICATION: PNEUMONIA EXAMINATION/TECHNIQUE: X-RAY - XR Chest 1 View COMPARISON: No relevant prior comparison study available FINDINGS: LINES/DEVICES: None. LUNGS: Subsegmental atelectasis in the lung bases. Small left pleural effusion. MEDIASTINUM AND CARDIOVASCULAR STRUCTURES: Cardiac silhouette not enlarged. Central airways and mediastinal contour are unremarkable. BONES AND SOFT TISSUES: Unremarkable. Moderate-sized hiatal hernia. RAD/Chest 1 View (Portable) IMPRESSION: Small left pleural effusion. Resolved right lower lobe pneumonia. Electronically Signed: Estephania Salmeron MD at 7:12 EDT ,
[2023-12-26] MEDS: Levothyroxine 100 MCG Tablet PO (06:51)
[2023-12-26 09:38] LABS: Bedside Glucose 117 mg/dL (74-106)
--- NOTE | 2023-12-26 09:54 | CASEMGMT ---
Discharge Planning Updates sent to [facility] and requested precert be started. Viv Esteban DC Planning Asst.
[2023-12-26] MEDS: Insulin Glargine-YFGN 100 UNIT/ML Pen 30 UNIT SC (10:13)
[2023-12-26] MEDS: Azithromycin 500 MG in Dextrose 5%-Water (250mL Bag) 250 ML 250 MG IV (10:16)
[2023-12-26] MEDS: Insulin Lispro 100 UNIT/ML INSULN.PEN SC (11:32)
[2023-12-26 12:12] LABS: Bedside Glucose 231 mg/dL (74-106)
--- NOTE | 2023-12-26 16:51 | PN.HOSP_ITS ---
Reason for Visit Reason for Visit: Diagnoses Dehydration (12/17/23) Essential (primary) hypertension (12/17/23) Orthostatic hypotension (12/17/23) Unspecified kidney failure (12/17/23) penitentiary (current) use of anticoagulants (12/17/23) Subjective Subjective Patient was seen and examined today, she is still on a clear liquid diet. Tube feedings will be started today. Objective Data Objective Data Vital Signs: Vital Signs Temp Pulse Resp BP Pulse Ox O2 Del Method O2 Flow Rate 99.3 F H 87 14 126/57 H 94 Room Air 2 12/26/23 15:13 12/26/23 15:13 12/26/23 15:13 12/26/23 15:13 12/26/23 15:13 12/26/23 15:13 12/25/23 16:57 Oxygen Flow Rate (L/min) 2 Oxygen Delivery Method Room Air Weight: 84.277 kg Body Mass Index (BMI) 30.9 Intake & Output: Intake and Output for Last 24 Hours 12/24/23 12/25/23 12/26/23 23:59 23:59 23:59 Intake Total 945 / 945 2138.5 / 2138.5 2111.33 / 211.33 Output Total 450 / 850 750 / 750 100 / 100 Balance 495 / 95 1388.5 / 1388.5 Lab / Micro Data 12/25/23 06:13 12/25/23 06:13 Labs: Laboratory Results - last 24 hr 12/25/23 21:37: POC Glucose 80 12/26/23 04:37: POC Glucose 122 H 12/26/23 06:50: POC Glucose 117 H 12/26/23 11:19: POC Glucose 231 H Micro: Microbiology 12/18/23 02:50 Gastric Fluid/Contents Gastric Occult Blood - Final Occult Blood Positive Radiography Diagnostic Testing: Radiology Impression Chest X-Ray 12/26/23 05:55 IMPRESSION: Small left pleural effusion. Resolved right lower lobe pneumonia. Electronically Signed: Estephania Salmeron MD at 7:12 EDT , Physical Exam Narrative alert, oriented x3, no apparent distress and average body habitus General Appearance: cooperative, well kempt and well developed Orientation / Consciousness: awake, oriented to person, oriented to place and oriented to time HEENT normocephalic, head/scalp atraumatic and moist oral mucous membranes Eyes PERRL, EOMs intact bilaterally and conjunctivae normal Neck supple, no JVD, thyroid normal and no carotid bruits General: trachea midline Resp normal respiratory effort, no retractions, no use of accessory muscles and clear to auscultation bilaterally Auscultation: Negative for rales, rhonchi or wheezes Cardio regular rate, regular rhythm, S1 normal heart sound, S2 normal heart sound, no rub and no gallops GI normal to inspection, nondistended, normoactive bowel sounds, soft to palpation, non-tender and non-distended Extremity no clubbing, cyanosis or edema Skin no rashes or lesions noted General Skin Exam: no breakdown Neuro oriented x3, CN's II-XII intact bilaterally, no focal motor deficits and no sensory deficits noted Sensorium / Orientation: awake and alert Speech: speech normal Psych affect normal Assessment & Plan Assessment/Plan (1) Syncope due to orthostatic hypotension: PLAN: Plan 1. Syncope-secondary to hypotension from GI bleed, blood pressure stable at this time, continue present medications #2 acute GI bleed-secondary to erosive esophagitis with bleeding-hemoglobin stable at this time #3 large hiatal hernia-patient will have a PEG tube inserted yesterday for nutritional support, patient remains on a clear liquid diet #4 essential hypertension-patient's diuretics are being held at this time #5 suspected aspiration pneumonia-patient's chest x-ray showed resolved right lower lobe pneumonia, I will stop the patient's antibiotics Total clinical time spent by myself addressing patient's medical issues, reviewing all of her data, and collaborating with patient's care team: 35 minutes Charges/Coding Visit Charges Inpatient E&M: [id number] [facility] L2
[2023-12-26 17:35] LABS: Bedside Glucose 104 mg/dL (74-106)
[2023-12-26] MEDS: Metoclopramide 10 MG Tablet PO (18:57)
[2023-12-26] MEDS: Acetaminophen 325 MG Tablet 650 MG PO (20:44)
[2023-12-26] MEDS: Atorvastatin Calcium 10 MG Tablet PO (20:45)
[2023-12-26] MEDS: Pantoprazole Sodium 40 MG Tablet PO (20:45)
[2023-12-27] MEDS: Metoclopramide 10 MG Tablet PO ×4 (00:22→16:50)
[2023-12-27 00:27] VITALS: BP 134/55; PULSE 60; RESP 18; TEMP 36.4; O2SAT 96
[2023-12-27 00:42] LABS: Bedside Glucose 136 mg/dL (74-106)
[2023-12-27 04:01] LABS: Bedside Glucose 76 mg/dL (74-106)
[2023-12-27 06:07] LABS: Absolute Lymphocyte Count 0.87 X10^3/uL (0.83-4.51); Absolute Neutrophil Count 3.4 X10^3/uL (2.0-7.7); Basophil# 0.03 X10^3/uL; Basophil% 0.6 % (0-1); Eosinophil# 0.36 X10^3/uL; Eosinophils% 6.7 % (0-5); Hematocrit 32.7 % (37-47); Hemoglobin 10.5 g/dL (12.0-15.0); Lymphocyte # 0.87 X10^3/ul (0.83-4.51); Lymphocyte % 16.2 % (19-41); Mean Corp Hgb Conc 32.1 g/dL (32-36); Mean Corpuscular Hgb 29.6 pg (27.0-32.0); Mean Corpuscular Volume 92.1 fL (81-99); Mean Platelet Vol. 9.2 fl (6.2-12.0); Monocyte# 0.64 X10^3/uL; Monocyte% 11.9 % (0-10); NRBC Flagged by Analyzer 0 % (0-5); Neutrophil % 63.5 % (47-70); Platelet Count 176 K/mm3 (150-450); RBC Distribution Width CV 14.2 % (11.6-14.6); RBC Distribution Width SD 48.3 fl (35.1-43.9); Red Blood Count 3.55 M/mm3 (4.2-5.4); White Blood Count 5.4 K/mm3 (4.4-11.0)
[2023-12-27 06:19] VITALS: BP 123/54; PULSE 58; RESP 18; TEMP 36.4; O2SAT 97
[2023-12-27] MEDS: Levothyroxine 100 MCG Tablet PO (06:20)
[2023-12-27] MEDS: Acetaminophen 325 MG Tablet 650 MG PO (06:20)
[2023-12-27 06:48] LABS: Anion Gap 3 (5-15); BUN 2 mg/dL (7-18); BUN/Creat Ratio 3.4 RATIO (10-20); Calcium,Total 8.4 mg/dL (8.5-10.1); Chloride 111 mmol/L (98-107); Creatinine, Serum 0.59 mg/dL (0.55-1.02); EST Glomerular Filtration Rate 104 mL/min (>60); Est Glom Filt Rate - Afr Amer 126 mL/min (>60); Estimated Creatinine Clearance 60.13 ml/min; Glucose 78 mg/dL (74-106); Sodium Level 141 mmol/L (136-145)
[2023-12-27 07:08] LABS: Bedside Glucose 72 mg/dL (74-106)
[2023-12-27 09:55] VITALS: BP 120/64; PULSE 94; RESP 17; TEMP 36.6; O2SAT 94
[2023-12-27] MEDS: Azithromycin 500 MG in Dextrose 5%-Water (250mL Bag) 250 ML 250 MG IV (10:00)
[2023-12-27] MEDS: Pantoprazole Sodium 40 MG Tablet PO ×2 (10:00→21:08)
[2023-12-27] MEDS: 0.9% Saline Lock 10 ML Syringe IV (10:01)
[2023-12-27] MEDS: Insulin Lispro 100 UNIT/ML INSULN.PEN SC ×2 (11:39→21:07)
[2023-12-27 11:58] LABS: Bedside Glucose 183 mg/dL (74-106)
[2023-12-27] MEDS: Jevity 1.5 1,000 ML 15 ML GT (13:00)
--- NOTE | 2023-12-27 14:22 | CASEMGMT ---
Discharge Planning [facility] has obtained auth for patient to admit. SW updated. Viv Esteban DC Planning Asst.
--- NOTE | 2023-12-27 14:43 | CASEMGMT ---
SAMSON notified physician patient has been approved for [facility] and he will send patient today. SAMSON met with patient and her and let them know this information as well. SAMSON completed a 7000 in [employer] system. Plan: d/c to [facility] under skilled level of care on a convalescent stay. Physicians will transport patient. Helen FLORES
--- NOTE | 2023-12-27 14:58 | PCM.TXEXTCAR ---
Diet Diet Order/Speech Therapy: 12/25/23 21:34 Diet: Full Liquid-do not recommend advancing diet at this time due to presence of large hiatal hernia Tube Feed: 15 ml/hr Jevity 1.5-increase as noted below Wound(s) ABD: Wound Type: Surgical Incision Therapies Weight Bearing: Full weight bearing Physical Therapy: Eval and Treat Occupational Therapy: Eval and Treat Speech Therapy: Eval and Treat Problem/Diagnosis (1) Syncope due to orthostatic hypotension: Status: Acute Code(s): I95.1 - Orthostatic hypotension Plan 1. Syncope-secondary to hypotension from GI bleed, blood pressure stable at this time, continue present medications #2 acute GI bleed-secondary to erosive esophagitis with bleeding-hemoglobin stable at this time, Eliquis is being held #3 large hiatal hernia-patient can be advanced to a full liquid diet, gastroenterology is concerned that she might pocket food in her hiatal hernia if she is on a regular diet, they request to see the patient in 2 weeks for follow-up #4 essential hypertension-patient's diuretics are being held at this time #5 suspected aspiration pneumonia-patient's chest x-ray showed resolved right lower lobe pneumonia, patient completed antibiotic course #6 past history of DVT with use of long-term anticoagulant (Eliquis)-Eliquis is being held at this time due to the patient's GI bleed, resume Eliquis at 5 mg twice daily starting 01/10/2024 Total clinical time spent by myself addressing patient's medical issues, reviewing all of her data, and collaborating with patient's care team: 35 minutes Allergies/Procedures Done in Hospital Allergies nitrofurantoin macrocrystalline (From Macrodantin) Allergy (Verified 12/17/23 14:07) Hives tree and shrub pollen Allergy (Verified 12/17/23 14:07) Hives maple tree rosuvastatin (From Crestor) Adverse Reaction (Severe, Verified 12/12/23 10:21) Muscle weakness colesevelam (From WelChol) Adverse Reaction (Intermediate, Verified 12/17/23 14:07) nausea nitrofurantoin (From Furadantin) Adverse Reaction (Intermediate, Verified 12/17/23 14:07) Hives metformin Adverse Reaction (Unknown, Verified 12/17/23 14:07) Gi side effects Procedures: EGD and Peg tube placement Type of Care/Length of Stay Estimated LOS: Convalescent Care Less Than 30 days Type of Care Needed: Skilled Rehab Potential: Good Prognosis: Good Additional Orders/Day of Discharge H&P will serve as current which was dated: 12/17/23 Day of Discharge: 12/27/23 Dietary and Speech Recommendations Dietitian Recommendations/Changes: Recommend Jevity 1.5 at goal rate 45ml/hr with 130ml flushes every 4 hours to provide 1,620kcal, 69 gm of protein, 1,580ml total fluid/day. Would start at 15ml/hr and increase by 10ml/hr every 8-12 hours as tolerated until goal rate is achieved. Will monitor pt tolerance with enteral nutrition and make adjustments, if needed. Will monitor weight, as available. Discharge Plan Admission Admit Date/Time: 12/17/23 16:57 Primary Reason for Your Visit: Syncope, aspiration pneumonia, large hiatal hernia Attending Provider: Gael Skinner Primary Care Provider: Gael Garza Consulting Providers: Thompson Merlos; Ben Escalante Discharge Orders/Prescriptions Prescriptions: New acetaminophen 325 mg Tablet 650 mg PO Q6H PRN PRN (Reason: pain 1-10/fever/headache) Qty: 0 0RF insulin glargine-yfgn 100 unit/mL (3 mL) Insulin Pen 30 unit subcut QAM Qty: 0 0RF ipratropium-albuterol 0.5 mg-3 mg(2.5 mg base)/3 mL Solution For Nebulization 3 ml inhalation Q4H.RT PRN (Reason: Shortness Of Breath) Qty: 0 0RF atorvastatin 10 mg Tablet 10 mg PO QHS Qty: 0 0RF sennosides-docusate sodium [Stimulant Laxative Plus] 8.6-50 mg Tablet 2 tab PO BID PRN PRN (Reason: Constipation) Qty: 0 0RF melatonin 3 mg Tablet 3 mg PO QHS PRN PRN (Reason: Insomnia) Qty: 0 0RF levothyroxine 100 mcg Tablet 100 mcg PO 0600 Qty: 0 0RF pantoprazole 40 mg Tablet,Delayed Release (Dr/Ec) 40 mg PO BID Qty: 0 0RF metoclopramide HCl 10 mg Tablet 5 mg PO 3XD Qty: 0 0RF insulin lispro [Humalog KwikPen Insulin] 100 unit/mL Insulin Pen See Protocol subcut ACHS Qty: 0 0RF Protocol: 2. Sliding Scale Insulin Low-Med Dosing Condition: 150-209 mg/dl = 1 unit Condition: 210-269 mg/dl = 2 units Condition: 270-329 mg/dl = 3 units Condition: 330-389 mg/dl = 4 units Condition: 390-449 mg/dl = 5 units Condition: Greater than 449 call physician Protocol Text: Suggested for: - Patients on Total Daily Insulin Dose of 28-36 units - Average body habitus patients LOW MEDIUM DOSING ALGORITHM tramadol 50 mg tablet 50 mg PO Q6H PRN (Reason: pain) Qty: 10 0RF Held Eliquis 5 mg tablet 5 mg PO BID Qty: 60 12RF Hold Instructions: Resume on 01/10/24. Hold until 01/10/2024, then resume Eliquis at 5 mg twice daily Discontinued omeprazole 20 mg capsule,delayed release(DR/EC) 20 mg PO DAILY simvastatin 20 mg tablet 20 mg PO QHS 90 Days Qty: 90 insulin glargine [Lantus Solostar U-100 Insulin] 100 unit/mL (3 mL) insulin pen 90 unit subcut QAM d-mannose 500 mg capsule 500 mg PO DAILY spironolactone 25 mg tablet 25 mg PO DAILY Qty: 90 3RF metolazone 5 mg tablet 5 mg PO DAILY levothyroxine 100 mcg tablet 100 mcg PO DAILY tramadol 50 mg tablet 50 mg PO Q8H PRN PRN (Reason: pain) furosemide 40 mg tablet 40 mg PO .BIDLX albuterol sulfate 90 mcg/actuation HFA aerosol inhaler 2 puff inhalation Q6H PRN (Reason: shortness of breath or wheezing) No Action (DME) POCKET CHAMBER Spacer See Rx Instructions .ROUTE .MEDSUPPLY Qty: 1 0RF Rx Instructions: As directed potassium chloride 20 mEq tablet,ER particles/crystals 20 meq PO DAILY Referrals / Follow Up: Yusuf Ortiz MD [Non-Staff] - 01/01/24 2:20 pm (Please arrive at 2:05 pm at [address], 10th floor right off the elevators. Please bring photo ID and insurance information. ) GregGael solis DO [Primary Care Provider] - FriendAndrew DO [Med Staff - Active Staff] - See Referral Note (In 2 weeks, call for appointment) Disposition Disposition (needs filled in before D/C Order can be placed): [facility] Facility
--- NOTE | 2023-12-27 15:31 | PCM.DC.SUM ---
Providers Date of Admission: 12/17/23 Date of Discharge: 12/27/23 Primary Care Physician: Dr. Gael Garza, DO Consultations 12/17/23 18:21 Consult: Gastroenterology Routine Consulting Provider: [facility] Reason for Consult: GI bleed EMERGENT Consult: No MD Notified: Yes Date Notified: 12/17/23 Time Notified: 18:27 Method of Notification: Text Reason For Visit: SYNCOPE, COFFEE GROUND EMESIS Diagnosis Discharge Diagnosis (1) Syncope due to orthostatic hypotension: Status: Acute Code(s): I95.1 - Orthostatic hypotension Plan 1. Syncope-secondary to hypotension from GI bleed, blood pressure stable at this time, continue present medications #2 acute GI bleed-secondary to erosive esophagitis with bleeding-hemoglobin stable at this time, Eliquis is being held #3 large hiatal hernia-patient can be advanced to a full liquid diet, gastroenterology is concerned that she might pocket food in her hiatal hernia if she is on a regular diet, they request to see the patient in 2 weeks for follow-up #4 essential hypertension-patient's diuretics are being held at this time #5 suspected aspiration pneumonia-patient's chest x-ray showed resolved right lower lobe pneumonia, patient completed antibiotic course #6 past history of DVT with use of long-term anticoagulant (Eliquis)-Eliquis is being held at this time due to the patient's GI bleed, resume Eliquis at 5 mg twice daily starting 01/10/2024 Total clinical time spent by myself addressing patient's medical issues, reviewing all of her data, and collaborating with patient's care team: 35 minutes Medications at Discharge Home Medications inhalational spacing device (POCKET CHAMBER spacer) #1 ea 01/23/21 apixaban 5 mg tablet (Eliquis) 5 mg PO BID blood thinner #60 tabs 08/03/23 potassium chloride 20 mEq tablet,extended release(part/cryst) 20 meq PO DAILY 08/16/23 acetaminophen 325 mg tablet 650 mg (2 x 325 mg) PO Q6H PRN PRN pain 1-10/fever/headache #0 tabs 12/27/23 atorvastatin 10 mg tablet 10 mg PO QHS #0 tabs 12/27/23 insulin glargine-yfgn 100 unit/mL (3 mL) subcutaneous pen 30 unit (0.3 mL) subcut QAM #0 mL 12/27/23 insulin lispro 100 unit/mL subcutaneous pen (Humalog KwikPen (U-100) Insulin) See Protocol subcut ACHS #0 mL 12/27/23 ipratropium 0.5 mg-albuterol 3 mg (2.5 mg base)/3 mL nebulization soln 3 ml inhalation Q4H.RT PRN Shortness Of Breath #0 mL 12/27/23 levothyroxine 100 mcg tablet 100 mcg PO 0600 #0 tabs 12/27/23 melatonin 3 mg tablet 3 mg PO QHS PRN PRN Insomnia #0 tabs 12/27/23 metoclopramide HCl 10 mg tablet 5 mg (1/2 x 10 mg) PO 3XD #0 tabs 12/27/23 pantoprazole 40 mg tablet,delayed release 40 mg PO BID #0 tabs 12/27/23 sennosides 8.6 mg-docusate sodium 50 mg tablet (Stimulant Laxative Plus) 2 tab PO BID PRN PRN Constipation #0 tabs 12/27/23 tramadol 50 mg tablet 50 mg PO Q6H PRN pain #10 tabs 12/27/23 Hospital Course Operations None Procedures EGD and Peg tube placement Summary of Care Provided Minutes Spent on Discharge: 32 Hospital Course: This 78-year-old white female was seen in the emergency room at [facility] after having a syncopal episode at home. Patient stated she was walking to the kitchen of her home and awoke on the floor. Patient stated she had an episode of emesis that was dark black in color. Workup in the emergency room included a CBC which was abnormal for a white blood cell count of 18.8, chemistry profile was remarkable for creatinine of 1.35 and a BUN of 42, glucose was 268. Chest x-ray showed a large hiatal hernia but no acute findings were noted, hip and pelvis x-ray showed no evidence of fracture or dislocation. NG tube was inserted and drainage was consistent with GI bleeding, patient was given IV fluids and was admitted for dehydration and upper GI bleed, her home diuretics and spironolactone were held, gastroenterology saw the patient in consultation and labs were monitored. Patient underwent an EGD which showed grade C erosive esophagitis with bleeding, there is a large hiatal hernia noted to be present, there was a large amount of food residue in the stomach. Patient was placed on a PPI via IV infusion, discussions were carried out with the patient concerning placement of a PEG tube for nutritional support due to the amount of food and the patient's hiatal hernia on endoscopy. Patient underwent a PEG tube placement without complication, she was seen by PT and OT and it was recommended that she go to a [facility] facility for short-term skilled services. Tube feedings were restarted in the hospital and the patient was kept on IV Reglan, IV Zithromax, and maintained on a clear liquid diet. Patient's Eliquis was held due to her erosive esophagitis. On 12/27/2023, patient was seen and examined: On examination she appeared in good health and spirits, she does not appear to be in any distress. Vital signs as documented. Skin warm and dry and without overt rashes. Neck without JVD, thyroid appears normal, trachea is midline, neck is supple. Lungs clear, normal air movement was noted. Heart exam notable for regular rhythm, normal sounds and absence of murmurs, rubs or gallops. Abdomen unremarkable and without evidence of organomegaly, masses, or abdominal aortic enlargement, bowel sounds are present in all 4 quadrants, no abdominal tenderness was noted. There is a PEG tube in place. Extremities - no cyanosis was noted, no clubbing was noted. Neuro: Cranial nerves II through XII are grossly intact, no focal motor deficits were noted, sensation to light touch and pinprick is intact, motor exam 5/5 throughout. Psych: Patient is alert and oriented x3, she does not appear anxious or depressed, she does not appear agitated. Patient appears stable for transfer to [facility] facility on 12/27/2023. Weight / BMI Weight Weight: 84.277 kg Body Mass Index (BMI) 30.9 ABG / Lab / Microbiology Data 12/27/23 05:46 12/27/23 05:46 Laboratory: Laboratory Results - last 24 hr 12/26/23 17:14: POC Glucose 104 12/26/23 20:49: POC Glucose 136 H 12/27/23 03:43: POC Glucose 76 12/27/23 05:46: WBC 5.4, RBC 3.55 L, Hgb 10.5 L, Hct 32.7 L, MCV 92.1, MCH 29.6, MCHC 32.1, RDW Std Deviation 48.3 H, RDW Coeff of Basilio 14.2, Plt Count 176, MPV 9.2, Immature Gran % (Auto) 1.100 H, Neut % (Auto) 63.5, Lymph % (Auto) 16.2 L, Pet[place] % (Auto) 11.9 H, Eos % (Auto) 6.7 H, Baso % (Auto) 0.6, Absolute Neuts (auto) 3.4, Absolute Lymphs (auto) 0.87, Nucleated RBC % 0, Sodium 141, Potassium 3.0 L, Chloride 111 H, Carbon Dioxide 27.0, Anion Gap 3 L, BUN 2 L, Creatinine 0.59, Estim Creat Clear Calc 60.13, Est GFR (MDRD) Af Amer 126, Est GFR (MDRD) Non-Af 104, BUN/Creatinine Ratio 3.4 L, Glucose 78, Calcium 8.4 L 12/27/23 06:25: POC Glucose 72 L 12/27/23 11:35: POC Glucose 183 H Microbiology: Microbiology 12/18/23 02:50 Gastric Fluid/Contents Gastric Occult Blood - Final Occult Blood Positive Meaningful Use Info Meaningful Use Meaningful Use Diagnoses (Choose all that apply): None applicable Ischemic Stroke Statin Dosing Therapy Reference: STATIN DOSE THERAPY REFERENCE: * Patients > 75 years receive moderate or high dose statin therapy. * Patients 75 years or YOUNGER should receive HIGH intensity statin dose unless contraindicated. You will be required to document reason for non-treatment if statin daily dose does not meet guidelines. HIGH DOSE STATIN THERAPY DAILY Atorvastatin > than or = to 40 mg Rosuvastatin > than or = to 20 mg Amlodipine + Atorvastatin > than or = to 2.5/40 mg Ezetimibe + Simvastatin 10/80 mg Simvastatin 80mg Discharge Plan Admission Admit Date/Time: 12/17/23 16:57 Primary Reason for Your Visit: Syncope, aspiration pneumonia, large hiatal hernia Attending Provider: Gael Skinner Primary Care Provider: Gael Garza Consulting Providers: Thompson Merlos; Ben Escalante Discharge Orders/Prescriptions Prescriptions: New acetaminophen 325 mg Tablet 650 mg PO Q6H PRN PRN (Reason: pain 1-10/fever/headache) Qty: 0 0RF insulin glargine-yfgn 100 unit/mL (3 mL) Insulin Pen 30 unit subcut QAM Qty: 0 0RF ipratropium-albuterol 0.5 mg-3 mg(2.5 mg base)/3 mL Solution For Nebulization 3 ml inhalation Q4H.RT PRN (Reason: Shortness Of Breath) Qty: 0 0RF atorvastatin 10 mg Tablet 10 mg PO QHS Qty: 0 0RF sennosides-docusate sodium [Stimulant Laxative Plus] 8.6-50 mg Tablet 2 tab PO BID PRN PRN (Reason: Constipation) Qty: 0 0RF melatonin 3 mg Tablet 3 mg PO QHS PRN PRN (Reason: Insomnia) Qty: 0 0RF levothyroxine 100 mcg Tablet 100 mcg PO 0600 Qty: 0 0RF pantoprazole 40 mg Tablet,Delayed Release (Dr/Ec) 40 mg PO BID Qty: 0 0RF metoclopramide HCl 10 mg Tablet 5 mg PO 3XD Qty: 0 0RF insulin lispro [Humalog KwikPen Insulin] 100 unit/mL Insulin Pen See Protocol subcut ACHS Qty: 0 0RF Protocol: 2. Sliding Scale Insulin Low-Med Dosing Condition: 150-209 mg/dl = 1 unit Condition: 210-269 mg/dl = 2 units Condition: 270-329 mg/dl = 3 units Condition: 330-389 mg/dl = 4 units Condition: 390-449 mg/dl = 5 units Condition: Greater than 449 call physician Protocol Text: Suggested for: - Patients on Total Daily Insulin Dose of 28-36 units - Average body habitus patients LOW MEDIUM DOSING ALGORITHM tramadol 50 mg tablet 50 mg PO Q6H PRN (Reason: pain) Qty: 10 0RF Held Eliquis 5 mg tablet 5 mg PO BID Qty: 60 12RF Hold Instructions: Resume on 01/10/24. Hold until 01/10/2024, then resume Eliquis at 5 mg twice daily Discontinued omeprazole 20 mg capsule,delayed release(DR/EC) 20 mg PO DAILY simvastatin 20 mg tablet 20 mg PO QHS 90 Days Qty: 90 insulin glargine [Lantus Solostar U-100 Insulin] 100 unit/mL (3 mL) insulin pen 90 unit subcut QAM d-mannose 500 mg capsule 500 mg PO DAILY spironolactone 25 mg tablet 25 mg PO DAILY Qty: 90 3RF metolazone 5 mg tablet 5 mg PO DAILY levothyroxine 100 mcg tablet 100 mcg PO DAILY tramadol 50 mg tablet 50 mg PO Q8H PRN PRN (Reason: pain) furosemide 40 mg tablet 40 mg PO .BIDLX albuterol sulfate 90 mcg/actuation HFA aerosol inhaler 2 puff inhalation Q6H PRN (Reason: shortness of breath or wheezing) No Action (DME) POCKET CHAMBER Spacer See Rx Instructions .ROUTE .MEDSUPPLY Qty: 1 0RF Rx Instructions: As directed potassium chloride 20 mEq tablet,ER particles/crystals 20 meq PO DAILY Referrals / Follow Up: Yusuf Ortiz MD [Non-Staff] - 01/01/24 2:20 pm (Please arrive at 2:05 pm at [address], 10th floor right off the elevators. Please bring photo ID and insurance information. ) Gael Garza DO [Primary Care Provider] - Andrew Ivey DO [Med Staff - Active Staff] - See Referral Note (In 2 weeks, call for appointment) Disposition Disposition (needs filled in before D/C Order can be placed): [facility] Facility Charges/Coding Visit Charges Inpatient E&M: 13741 Disch Hosp >30min
[2023-12-27 15:39] VITALS: BP 120/53; PULSE 77; RESP 16; TEMP 36.7; O2SAT 94
--- NOTE | 2023-12-27 16:17 | CASEMGMT ---
Discharge Planning Discharge orders, signed med list, and transport time sent to [facility]. Wheelchair transport was scheduled with [facility] for 7:30p. Nursing, SW, patient, and her were all updated. TRACY Augustine Planning Asst.
--- NOTE | 2023-12-27 16:45 | EX.PCM.PN.GI ---
Subjective Subjective Patient is doing well without any problems. She has remained on a clear liquid diet after undergoing PEG placement yesterday. Objective Data Objective Data Vital Signs: Vital Signs Temp Pulse Resp BP Pulse Ox O2 Del Method O2 Flow Rate 98.0 F 77 16 120/53 L 94 Room Air 2 12/27/23 15:39 12/27/23 15:39 12/27/23 15:39 12/27/23 15:39 12/27/23 15:39 12/27/23 15:39 12/25/23 16:57 Oxygen Flow Rate (L/min) 2 Oxygen Delivery Method Room Air Weight: 185 lb 12.784 oz Body Mass Index (BMI) 30.9 Intake & Output: Intake and Output for Last 24 Hours 12/25/23 12/26/23 12/27/23 23:59 23:59 23:59 Intake Total 2138.5 / 2138.5 2751.33 / 2751.33 255 / 255 Output Total 750 / 750 100 / 100 150 / 150 Balance 1388.5 / 1388.5 2651.33 / 2651.33 105 / 105 Lab / Micro Data 12/27/23 05:46 12/27/23 05:46 Labs: Laboratory Results - last 24 hr 12/26/23 17:14: POC Glucose 104 12/26/23 20:49: POC Glucose 136 H 12/27/23 03:43: POC Glucose 76 12/27/23 05:46: WBC 5.4, RBC 3.55 L, Hgb 10.5 L, Hct 32.7 L, MCV 92.1, MCH 29.6, MCHC 32.1, RDW Std Deviation 48.3 H, RDW Coeff of Basilio 14.2, Plt Count 176, MPV 9.2, Immature Gran % (Auto) 1.100 H, Neut % (Auto) 63.5, Lymph % (Auto) 16.2 L, [place] % (Auto) 11.9 H, Eos % (Auto) 6.7 H, Baso % (Auto) 0.6, Absolute Neuts (auto) 3.4, Absolute Lymphs (auto) 0.87, Nucleated RBC % 0, Sodium 141, Potassium 3.0 L, Chloride 111 H, Carbon Dioxide 27.0, Anion Gap 3 L, BUN 2 L, Creatinine 0.59, Estim Creat Clear Calc 60.13, Est GFR (MDRD) Af Amer 126, Est GFR (MDRD) Non-Af 104, BUN/Creatinine Ratio 3.4 L, Glucose 78, Calcium 8.4 L 12/27/23 06:25: POC Glucose 72 L 12/27/23 11:35: POC Glucose 183 H Micro: Microbiology 12/18/23 02:50 Gastric Fluid/Contents Gastric Occult Blood - Final Occult Blood Positive Physical Exam Narrative alert, oriented x3, no apparent distress and average body habitus General Appearance: cooperative, well kempt and well developed Orientation / Consciousness: awake, oriented to person, oriented to place and oriented to time HEENT normocephalic, head/scalp atraumatic and moist oral mucous membranes Eyes PERRL, EOMs intact bilaterally and conjunctivae normal Neck supple, no JVD, thyroid normal and no carotid bruits General: trachea midline Resp normal respiratory effort, no retractions, no use of accessory muscles and clear to auscultation bilaterally Auscultation: Negative for rales, rhonchi or wheezes Cardio regular rate, regular rhythm, S1 normal heart sound, S2 normal heart sound, no rub and no gallops GI normal to inspection, nondistended, normoactive bowel sounds, soft to palpation, non-tender and non-distended Extremity no clubbing, cyanosis or edema Skin no rashes or lesions noted General Skin Exam: no breakdown Neuro oriented x3, CN's II-XII intact bilaterally, no focal motor deficits and no sensory deficits noted Sensorium / Orientation: awake and alert Speech: speech normal Psych affect normal Assessment & Plan Assessment/Plan (1) Acute dehydration: (2) Acute prerenal azotemia: (3) Anticoagulant long-term use: (4) Essential hypertension: PLAN: Plan 78-year-old female was admitted for syncope on the day of admission. She passed out and fell at her dining room while going to the kitchen. Denies prodromal symptoms. She also had coffee ground emesis in the same day. She takes Advil in the morning and Tylenol in the evening for chest pain secondary to hiatus hernia. Bilateral lower EXTR swelling due to lymphedema Acute GI bleed, upper may be from large hiatus hernia: Stool for occult blood positive. H&H 14.9/44%. Platelet count 503,000. Serial H&H does not show significant drop. On IV PPI prophylaxis. Hold anticoagulation. NG tube - Patient had EGD on 12/18. . Patient is high risk for repeat large hiatus hernia but has food residue/bezoar, esophageal benign appearing stenosis and grade C erosive esophagitis with bleeding. He recommended as patient can follow-up for [facility] surgeon and GI for Belkys's fundoplication surgery or palliative PEG placement with endoscopic hiatus hernia reduction/gastropexy - Since patient has aspirated from hiatus hernia or small vomiting of blood. Speech therapist recommended NPO. Started on IV Unasyn. Prior to that patient was started on IV Flagyl and Zithromax for hiatus hernia/gastroparesis. EGD show for residue in stomach. 9After family discussion, patient agreed for PEG tube -Status post percutaneous PEG tube placement without any complications. She has been tolerating clear liquid diet. I would like her to at least stay on a full liquid diet and remain on azithromycin along with metoclopramide therapy due to her very large hiatal hernia in hopes that her stomach can contract and decrease the amount of food this still remains in her hiatal hernia. She will need likely a surgical gastropexy with PEG tube in the future. Charges/Coding Visit Charges Inpatient E&M: 16034 Subs Hosp L3
[2023-12-27 17:48] LABS: Bedside Glucose 145 mg/dL (74-106)
[2023-12-27 20:59] VITALS: BP 128/58; PULSE 79; RESP 18; TEMP 37; O2SAT 94
[2023-12-27] MEDS: Atorvastatin Calcium 10 MG Tablet PO (21:07)
[2023-12-28] LABS: Bedside Glucose 158 mg/dL (74-106)
== END 2023-12-27 21:40 | DRG 380 ==
LOC: ED 16:57 → PCU 17:44
PROVIDERS: Anesthesiology; Internal Medicine; Internal Medicine Gastroenterology; Admitting Provider Hospitalist; Emergency Provider Emergency Medicine; PCP Family Medicine; Visit Provider Internal Medicine
PROC: 0DJ08ZZ Inspection of Upper Intestinal Tract, Via Natural or Artificial Opening Endoscopic (ICD-10-PCS; CPT 43235; principal; 2023-12-19 16:10)
DX: K22.11 Ulcer of esophagus with bleeding (principal); J69.0 Pneumonitis due to inhalation of food and vomit; N17.9 Acute kidney failure, unspecified; E87.1 Hypo-osmolality and hyponatremia; J44.9 Chronic obstructive pulmonary disease, unspecified; E11.9 Type 2 diabetes mellitus without complications; I10 Essential (primary) hypertension; E03.9 Hypothyroidism, unspecified; K22.2 Esophageal obstruction; I95.1 Orthostatic hypotension; E86.0 Dehydration; K31.84 Gastroparesis; Z79.4 Long term (current) use of insulin; E78.5 Hyperlipidemia, unspecified; K44.9 Diaphragmatic hernia without obstruction or gangrene; I89.0 Lymphedema, not elsewhere classified; E87.6 Hypokalemia; K22.89 Other specified disease of esophagus; K21.9 Gastro-esophageal reflux disease without esophagitis; Z79.01 Long term (current) use of anticoagulants; Z79.890 Hormone replacement therapy; Z86.718 Personal history of other venous thrombosis and embolism; Z96.643 Presence of artificial hip joint, bilateral; R09.02 Hypoxemia; Z79.899 Other long term (current) drug therapy; Z90.49 Acquired absence of other specified parts of digestive tract; R79.89 Other specified abnormal findings of blood chemistry
CPT/HCPCS: 36415; 71045; 73502; 74018; 80048; 82271; 82962; 83036; 83605; 83735; 84100; 84443; 85014; 85018; 85025; 92526; 92610; 93005; 94640; 94660; 94762; 97110; 97116; 97162; 97166; 97530; 97535; 97803; 99285; J7030; J7040; J7050; A4216; J0295; J1940; J2405; J3490; J7799

== ENCOUNTER → 2024-01-19 05:00 | Outpatient (REF) | payer BC, MEDICAID, SELFPAY ==
[2024-01-19 08:03] LABS: Absolute Lymphocyte Count 1.39 X10^3/uL (0.83-4.51); Basophil# 0.08 X10^3/uL; Basophil% 1.1 % (0-1); Eosinophils% 2.6 % (0-5); Hematocrit 34.7 % (37-47); Hemoglobin 10.8 g/dL (12.0-15.0); Lymphocyte # 1.39 X10^3/ul (0.83-4.51); Lymphocyte % 18.4 % (19-41); Mean Corp Hgb Conc 31.1 g/dL (32-36); Mean Corpuscular Hgb 29.4 pg (27.0-32.0); Mean Corpuscular Volume 94.6 fL (81-99); Mean Platelet Vol. 10.6 fl (6.2-12.0); Monocyte# 0.82 X10^3/uL; Monocyte% 10.8 % (0-10); NRBC Flagged by Analyzer 0 % (0-5); Neutrophil # 5.03 X10^3/uL (2.7-7.7); Neutrophil % 66.4 % (47-70); Platelet Count 371 K/mm3 (150-450); RBC Distribution Width CV 15.1 % (11.6-14.6); RBC Distribution Width SD 52.1 fl (35.1-43.9); Red Blood Count 3.67 M/mm3 (4.2-5.4); White Blood Count 7.6 K/mm3 (4.4-11.0)
[2024-01-19 08:08] LABS: Anion Gap 4 (5-15); BUN 9 mg/dL (7-18); BUN/Creat Ratio 18.4 RATIO (10-20); Calcium,Total 8.8 mg/dL (8.5-10.1); Chloride 106 mmol/L (98-107); Creatinine, Serum 0.49 mg/dL (0.55-1.02); EST Glomerular Filtration Rate 129 mL/min (>60); Est Glom Filt Rate - Afr Amer 156 mL/min (>60); Glucose 192 mg/dL (74-106); Potassium 4.1 mmol/L (3.5-5.1); Sodium Level 139 mmol/L (136-145)
== END ==
LOC: OLS.WHLTCC 05:00
PROVIDERS: PCP Family Medicine; Visit Provider Internal Medicine
DX: N17.8 Other acute kidney failure (principal)
CPT/HCPCS: 36415; 80048; 85025

== ENCOUNTER → 2024-01-26 | Outpatient (REF) | payer BC, MEDICAID, SELFPAY ==
[2024-01-26 06:44] LABS: Absolute Lymphocyte Count 1.47 X10^3/uL (0.83-4.51); Absolute Neutrophil Count 3.5 X10^3/uL (2.0-7.7); Basophil# 0.08 X10^3/uL; Basophil% 1.3 % (0-1); Eosinophil# 0.31 X10^3/uL; Eosinophils% 5.1 % (0-5); Hemoglobin 10.6 g/dL (12.0-15.0); Lymphocyte # 1.47 X10^3/ul (0.83-4.51); Mean Corp Hgb Conc 31.2 g/dL (32-36); Mean Corpuscular Hgb 29.8 pg (27.0-32.0); Mean Corpuscular Volume 95.5 fL (81-99); Mean Platelet Vol. 10.8 fl (6.2-12.0); Monocyte# 0.72 X10^3/uL; Monocyte% 11.7 % (0-10); NRBC Flagged by Analyzer 0 % (0-5); Neutrophil # 3.53 X10^3/uL (2.7-7.7); Neutrophil % 57.6 % (47-70); Platelet Count 291 K/mm3 (150-450); RBC Distribution Width CV 14.9 % (11.6-14.6); RBC Distribution Width SD 52.2 fl (35.1-43.9); Red Blood Count 3.56 M/mm3 (4.2-5.4); White Blood Count 6.1 K/mm3 (4.4-11.0)
[2024-01-26 06:53] LABS: Anion Gap 3 (5-15); BUN 11 mg/dL (7-18); BUN/Creat Ratio 19.7 RATIO (10-20); Calcium,Total 8.9 mg/dL (8.5-10.1); Chloride 108 mmol/L (98-107); Creatinine, Serum 0.56 mg/dL (0.55-1.02); EST Glomerular Filtration Rate 111 mL/min (>60); Est Glom Filt Rate - Afr Amer 134 mL/min (>60); Glucose 187 mg/dL (74-106); Sodium Level 141 mmol/L (136-145)
== END ==
LOC: OLS.WHLTCC 05:00
PROVIDERS: PCP Family Medicine; Visit Provider Internal Medicine
DX: N17.9 Acute kidney failure, unspecified (principal)
CPT/HCPCS: 36415; 80048; 85025

== ENCOUNTER → 2024-02-02 | Outpatient (REF) | payer BC, MEDICAID, SELFPAY ==
[2024-02-02 07:46] LABS: Basophil# 0.07 X10^3/uL; Basophil% 1.1 % (0-1); Eosinophil# 0.27 X10^3/uL; Eosinophils% 4.2 % (0-5); Hematocrit 33.4 % (37-47); Hemoglobin 10.5 g/dL (12.0-15.0); Lymphocyte % 21.8 % (19-41); Mean Corp Hgb Conc 31.4 g/dL (32-36); Mean Corpuscular Hgb 29.7 pg (27.0-32.0); Mean Corpuscular Volume 94.6 fL (81-99); Mean Platelet Vol. 10.9 fl (6.2-12.0); Monocyte# 0.63 X10^3/uL; Monocyte% 9.8 % (0-10); NRBC Flagged by Analyzer 0 % (0-5); Neutrophil # 4.03 X10^3/uL (2.7-7.7); Neutrophil % 62.8 % (47-70); Platelet Count 274 K/mm3 (150-450); RBC Distribution Width CV 14.7 % (11.6-14.6); RBC Distribution Width SD 51.3 fl (35.1-43.9); Red Blood Count 3.53 M/mm3 (4.2-5.4); White Blood Count 6.4 K/mm3 (4.4-11.0)
[2024-02-02 08:02] LABS: Anion Gap 6 (5-15); BUN 13 mg/dL (7-18); BUN/Creat Ratio 26.6 RATIO (10-20); Calcium,Total 8.9 mg/dL (8.5-10.1); Chloride 108 mmol/L (98-107); Creatinine, Serum 0.49 mg/dL (0.55-1.02); EST Glomerular Filtration Rate 129 mL/min (>60); Est Glom Filt Rate - Afr Amer 156 mL/min (>60); Glucose 207 mg/dL (74-106); Potassium 3.9 mmol/L (3.5-5.1); Sodium Level 140 mmol/L (136-145)
== END ==
LOC: OLS.WHLTCC 05:00
PROVIDERS: PCP Family Medicine; Visit Provider Internal Medicine
DX: N17.9 Acute kidney failure, unspecified (principal)
CPT/HCPCS: 36415; 80048; 85025

== ENCOUNTER → 2024-02-09 | Outpatient (REF) | payer BC, MEDICAID, SELFPAY ==
[2024-02-09 09:14] LABS: Absolute Lymphocyte Count 1.48 X10^3/uL (0.83-4.51); Absolute Neutrophil Count 6.2 X10^3/uL (2.0-7.7); Basophil# 0.06 X10^3/uL; Basophil% 0.7 % (0-1); Eosinophil# 0.21 X10^3/uL; Eosinophils% 2.4 % (0-5); Hematocrit 34.7 % (37-47); Hemoglobin 10.8 g/dL (12.0-15.0); Lymphocyte # 1.48 X10^3/ul (0.83-4.51); Lymphocyte % 16.9 % (19-41); Mean Corp Hgb Conc 31.1 g/dL (32-36); Mean Corpuscular Hgb 29.6 pg (27.0-32.0); Mean Corpuscular Volume 95.1 fL (81-99); Mean Platelet Vol. 11.2 fl (6.2-12.0); Monocyte# 0.76 X10^3/uL; Monocyte% 8.7 % (0-10); NRBC Flagged by Analyzer 0 % (0-5); Neutrophil # 6.21 X10^3/uL (2.7-7.7); Neutrophil % 71.1 % (47-70); Platelet Count 295 K/mm3 (150-450); RBC Distribution Width CV 14.4 % (11.6-14.6); RBC Distribution Width SD 50.4 fl (35.1-43.9); Red Blood Count 3.65 M/mm3 (4.2-5.4); White Blood Count 8.7 K/mm3 (4.4-11.0)
[2024-02-09 09:20] LABS: Anion Gap 6 (5-15); BUN 17 mg/dL (7-18); BUN/Creat Ratio 31.4 RATIO (10-20); Chloride 105 mmol/L (98-107); Creatinine, Serum 0.54 mg/dL (0.55-1.02); EST Glomerular Filtration Rate 115 mL/min (>60); Est Glom Filt Rate - Afr Amer 139 mL/min (>60); Glucose 170 mg/dL (74-106); Potassium 4.5 mmol/L (3.5-5.1); Sodium Level 139 mmol/L (136-145)
== END ==
LOC: OLS.WHLTCC 05:00
PROVIDERS: PCP Family Medicine; Visit Provider Internal Medicine
DX: N17.8 Other acute kidney failure (principal)
CPT/HCPCS: 36415; 80048; 85025

== ENCOUNTER → 2024-02-16 | Outpatient (REF) | payer BC, MEDICAID, SELFPAY ==
[2024-02-16 08:41] LABS: Absolute Lymphocyte Count 1.39 X10^3/uL (0.83-4.51); Absolute Neutrophil Count 3.5 X10^3/uL (2.0-7.7); Basophil# 0.08 X10^3/uL; Basophil% 1.4 % (0-1); Eosinophil# 0.25 X10^3/uL; Eosinophils% 4.4 % (0-5); Hematocrit 35.7 % (37-47); Hemoglobin 11.2 g/dL (12.0-15.0); Lymphocyte # 1.39 X10^3/ul (0.83-4.51); Lymphocyte % 24.3 % (19-41); Mean Corp Hgb Conc 31.4 g/dL (32-36); Mean Corpuscular Hgb 29.6 pg (27.0-32.0); Mean Corpuscular Volume 94.2 fL (81-99); Mean Platelet Vol. 10.7 fl (6.2-12.0); Monocyte# 0.54 X10^3/uL; Monocyte% 9.4 % (0-10); NRBC Flagged by Analyzer 0 % (0-5); Neutrophil # 3.45 X10^3/uL (2.7-7.7); Neutrophil % 60.3 % (47-70); Platelet Count 338 K/mm3 (150-450); RBC Distribution Width CV 13.7 % (11.6-14.6); RBC Distribution Width SD 47.6 fl (35.1-43.9); Red Blood Count 3.79 M/mm3 (4.2-5.4); White Blood Count 5.7 K/mm3 (4.4-11.0)
[2024-02-16 08:52] LABS: Anion Gap 5 (5-15); BUN 19 mg/dL (7-18); BUN/Creat Ratio 38.7 RATIO (10-20); Calcium,Total 9.1 mg/dL (8.5-10.1); Chloride 106 mmol/L (98-107); Creatinine, Serum 0.49 mg/dL (0.55-1.02); EST Glomerular Filtration Rate 129 mL/min (>60); Est Glom Filt Rate - Afr Amer 156 mL/min (>60); Glucose 180 mg/dL (74-106); Potassium 4.4 mmol/L (3.5-5.1); Sodium Level 138 mmol/L (136-145)
== END ==
LOC: OLS.WHLTCC 05:00
PROVIDERS: PCP Family Medicine; Visit Provider Internal Medicine
DX: N17.9 Acute kidney failure, unspecified (principal)
CPT/HCPCS: 36415; 80048; 85025

== ENCOUNTER → 2024-02-23 | Outpatient (REF) | payer BC, MEDICAID, SELFPAY ==
[2024-02-23 07:14] LABS: Absolute Lymphocyte Count 1.85 X10^3/uL (0.83-4.51); Absolute Neutrophil Count 3.4 X10^3/uL (2.0-7.7); Basophil# 0.05 X10^3/uL; Basophil% 0.8 % (0-1); Eosinophil# 0.25 X10^3/uL; Hemoglobin 10.9 g/dL (12.0-15.0); Lymphocyte # 1.85 X10^3/ul (0.83-4.51); Lymphocyte % 29.8 % (19-41); Mean Corp Hgb Conc 32.1 g/dL (32-36); Mean Corpuscular Hgb 29.9 pg (27.0-32.0); Mean Corpuscular Volume 93.2 fL (81-99); Mean Platelet Vol. 10.8 fl (6.2-12.0); Monocyte# 0.64 X10^3/uL; Monocyte% 10.3 % (0-10); NRBC Flagged by Analyzer 0 % (0-5); Neutrophil % 54.8 % (47-70); Platelet Count 329 K/mm3 (150-450); RBC Distribution Width CV 13.8 % (11.6-14.6); Red Blood Count 3.65 M/mm3 (4.2-5.4); White Blood Count 6.2 K/mm3 (4.4-11.0)
[2024-02-23 07:31] LABS: Anion Gap 3 (5-15); BUN 14 mg/dL (7-18); BUN/Creat Ratio 24.6 RATIO (10-20); Calcium,Total 9.1 mg/dL (8.5-10.1); Chloride 108 mmol/L (98-107); Creatinine, Serum 0.57 mg/dL (0.55-1.02); EST Glomerular Filtration Rate 108 mL/min (>60); Est Glom Filt Rate - Afr Amer 131 mL/min (>60); Glucose 205 mg/dL (74-106); Sodium Level 141 mmol/L (136-145)
== END ==
LOC: OLS.WHLTCC 05:00
PROVIDERS: PCP Family Medicine; Visit Provider Internal Medicine
DX: N17.9 Acute kidney failure, unspecified (principal)
CPT/HCPCS: 36415; 80048; 85025

== ENCOUNTER → 2024-03-20 | Outpatient (REF) | payer BC, MEDICAID, SELFPAY ==
[2024-03-20 07:54] LABS: Absolute Lymphocyte Count 2.03 X10^3/uL (0.83-4.51); Absolute Neutrophil Count 3.4 X10^3/uL (2.0-7.7); Basophil# 0.08 X10^3/uL; Basophil% 1.2 % (0-1); Eosinophil# 0.32 X10^3/uL; Eosinophils% 4.9 % (0-5); Hematocrit 37.4 % (37-47); Hemoglobin 11.7 g/dL (12.0-15.0); Lymphocyte # 2.03 X10^3/ul (0.83-4.51); Mean Corp Hgb Conc 31.3 g/dL (32-36); Mean Corpuscular Hgb 28.6 pg (27.0-32.0); Mean Corpuscular Volume 91.4 fL (81-99); Mean Platelet Vol. 10.9 fl (6.2-12.0); Monocyte# 0.73 X10^3/uL; Monocyte% 11.2 % (0-10); NRBC Flagged by Analyzer 0 % (0-5); Neutrophil # 3.36 X10^3/uL (2.7-7.7); Neutrophil % 51.4 % (47-70); Platelet Count 389 K/mm3 (150-450); RBC Distribution Width CV 13.8 % (11.6-14.6); RBC Distribution Width SD 46.5 fl (35.1-43.9); Red Blood Count 4.09 M/mm3 (4.2-5.4); White Blood Count 6.5 K/mm3 (4.4-11.0)
[2024-03-20 08:53] LABS: Anion Gap 6 (5-15); BUN 18 mg/dL (7-18); BUN/Creat Ratio 25.8 RATIO (10-20); Calcium,Total 9.3 mg/dL (8.5-10.1); Chloride 104 mmol/L (98-107); EST Glomerular Filtration Rate 86 mL/min (>60); Est Glom Filt Rate - Afr Amer 104 mL/min (>60); Glucose 110 mg/dL (74-106); Potassium 3.8 mmol/L (3.5-5.1); Sodium Level 140 mmol/L (136-145)
== END ==
LOC: OLS.WHLTCC 04:52
PROVIDERS: PCP Family Medicine; Visit Provider Internal Medicine
DX: E11.9 Type 2 diabetes mellitus without complications (principal); K44.9 Diaphragmatic hernia without obstruction or gangrene
CPT/HCPCS: 36415; 80048; 85025

== ENCOUNTER 2024-03-27 16:38 | Emergency (ER) | payer MEDICARE, SELFPAY ==
[2024-03-27 16:39] VITALS: BP 134/78; PULSE 102; RESP 16; TEMP 35.7; O2SAT 97
[2024-03-27 18:04] LABS: Absolute Lymphocyte Count 1.95 X10^3/uL (0.83-4.51); Absolute Neutrophil Count 6.5 X10^3/uL (2.0-7.7); Basophil# 0.08 X10^3/uL; Basophil% 0.8 % (0-1); Eosinophil# 0.24 X10^3/uL; Eosinophils% 2.5 % (0-5); Hematocrit 40.5 % (37-47); Hemoglobin 13.5 g/dL (12.0-15.0); Lymphocyte # 1.95 X10^3/ul (0.83-4.51); Lymphocyte % 20.2 % (19-41); Mean Corp Hgb Conc 33.3 g/dL (32-36); Mean Corpuscular Hgb 29.7 pg (27.0-32.0); Mean Corpuscular Volume 89.2 fL (81-99); Mean Platelet Vol. 10.4 fl (6.2-12.0); Monocyte# 0.88 X10^3/uL; Monocyte% 9.1 % (0-10); NRBC Flagged by Analyzer 0 % (0-5); Neutrophil # 6.46 X10^3/uL (2.7-7.7); Platelet Count 298 K/mm3 (150-450); RBC Distribution Width CV 13.8 % (11.6-14.6); RBC Distribution Width SD 45.2 fl (35.1-43.9); Red Blood Count 4.54 M/mm3 (4.2-5.4); White Blood Count 9.7 K/mm3 (4.4-11.0)
--- NOTE | 2024-03-27 18:13 | EKG12_ITS ---
Test Reason : ABN LABS Blood Pressure : */* mmHG Vent. Rate : 69 BPM Atrial Rate : 69 BPM P-R Int : 190 ms QRS Dur : 90 ms QT Int : 378 ms P-R-T Axes : * -12 27 degrees QTcB Int : 405 ms Normal sinus rhythm Normal ECG Confirmed by LINA VILLA, ANDREI ([id number]), editor house organ HILDA EVERETT ([id number]) on 04/03/2024 2:11:16 P M Referred By: BB Confirmed By: ANDREI MILLS MD
--- NOTE | 2024-03-27 18:15 | EDS_ITS ---
HPI History of Present Illness Chief Complaint: Abn Labs Informant: patient Narrative Narrative: 2 days of generalized weakness, episodic dyspnea on exertion, feels like her potassium is low. Has not been checked in the last couple days. She has had this before and been admitted for it in the past. She has a history of congestive heart failure, as well as a paraesophageal hiatal hernia, which was repaired a month ago at [facility], subsequently she had her PEG removed and she has been eating and drinking very well. She is on Lasix 40 mg a day, she takes an additional 40 mg only if she needs to and has not been needing it lately, the edema she had in the summer in her legs is much improved right now. She states this morning she had an episode where she simply walked into her kitchen and was out of breath and checked her pulse ox and it was 94% but her heart rate was in the 120s if she sat down and it resolved after 10 minutes or so. Sometimes she gets a little short of breath with lying down and exerting herself, but not to the degree it was this morning. She denies having any chest discomfort. She takes Eliquis for history of A-fib. She thinks she lives out of A-fib the majority of time. She is not sure if she was into this morning or not based on how she felt. [facility] Medical History Preop cardiovascular exam Anticoagulant long-term use Acute prerenal azotemia Acute dehydration Syncope due to orthostatic hypotension Acute upper GI bleed JHONY (obstructive sleep apnea) Obesity (BMI 30-39.9) Back pain History of venous thromboembolism Left-sided chest wall pain Venous insufficiency Hiatal hernia Esophageal spasm Edema JHONY (obstructive sleep apnea) History of basal cell carcinoma (BCC) History of DVT (deep vein thrombosis) Seizure disorder Osteoarthritis Essential hypertension GERD (gastroesophageal reflux disease) Parkinsons disease Lung disease Kidney disease Hypothyroidism Sleep apnea IBS (irritable bowel syndrome) Depression Asthma Obesity (BMI 30.0-34.9) Lumbar back pain Premature atrial contractions COPD (chronic obstructive pulmonary disease) Hyperlipidemia Diabetes mellitus type II, controlled History of pulmonary embolism Symptomatic bradycardia Home Medications ?Medication ?Instructions ?Recorded ?Last Taken ?Type apixaban 5 mg tablet (Eliquis) 5 mg PO BID blood thinner #60 tabs 08/03/23 11/26/23 Rx acetaminophen 325 mg tablet 650 mg (2 x 325 mg) PO Q6H PRN PRN 12/27/23 Unknown Rx pain 1-10/fever/headache #0 tabs atorvastatin 10 mg tablet 10 mg PO QHS #0 tabs 12/27/23 Unknown Rx insulin lispro 100 unit/mL See Protocol subcut ACHS #0 mL 12/27/23 Unknown Rx subcutaneous pen (Humalog KwikPen (U-100) Insulin) ipratropium 0.5 mg-albuterol 3 mg 3 ml inhalation Q4H.RT PRN 12/27/23 Unknown Rx (2.5 mg base)/3 mL nebulization Shortness Of Breath #0 mL soln levothyroxine 100 mcg tablet 100 mcg PO 0600 #0 tabs 12/27/23 Unknown Rx melatonin 3 mg tablet 3 mg PO QHS PRN PRN Insomnia #0 12/27/23 Unknown Rx tabs pantoprazole 40 mg tablet,delayed 40 mg PO BID #0 tabs 12/27/23 Unknown Rx release sennosides 8.6 mg-docusate sodium 2 tab PO BID PRN PRN Constipation 12/27/23 Unknown Rx 50 mg tablet (Stimulant Laxative #0 tabs Plus) furosemide 20 mg tablet 40 mg PO BID 03/07/24 Unknown History tramadol 50 mg tablet 50 mg PO Q6H PRN pain #20 tabs 03/22/24 Unknown Rx cephalexin 500 mg capsule 500 mg PO Q6 #20 CAPSULES 03/27/24 Unknown Rx insulin glargine-yfgn 100 unit/mL 40 unit subcut QAM 03/27/24 Unknown History (3 mL) subcutaneous pen potassium chloride 10 mEq 10 meq PO BID 03/27/24 Unknown History tablet,extended release Allergy/AdvReac Type Severity Reaction Status Date / Time nitrofurantoin Allergy Hives Verified 03/27/24 16:38 macrocrystalline (From Macrodantin) tree and shrub pollen Allergy Hives Verified 03/27/24 16:38 rosuvastatin (From Crestor) AdvReac Severe Muscle Verified 03/27/24 16:38 weakness colesevelam (From WelChol) AdvReac Intermediate nausea Verified 03/27/24 16:38 nitrofurantoin (From AdvReac Intermediate Hives Verified 03/27/24 16:38 Furadantin) metformin AdvReac Unknown Gi side Verified 03/27/24 16:38 effects Family History Father CAD (coronary artery disease) Diabetes Myocardial infarction Alzheimers disease Hypertension Parkinson's disease Cancer melanoma History of blood clots Mother Diabetes AAA (abdominal aortic aneurysm) Bleeding disorder Colon cancer Thyroid disorder Brother Multiple sclerosis Skin cancer Surgical History History of tonsillectomy and adenoidectomy Hx of lumbar discectomy History of right hip replacement (~07/08/15) History of lumbar fusion (~2012) History of Belkys fundoplication Hx of hernia repair History of cholecystectomy Social History household members: spouse and none Smoking Status: Never smoker alcohol intake: never substance use type: does not use diet: diabetic and gluten free caffeine: No what type of physical activity do you participate in: none seatbelt use: always do you feel safe at home: Yes ROS ROS ED Constitutional Constitutional ED: Reports weakness; Denies chills or fever(s) Eyes Eyes: Denies change in vision or diplopia ENT ENT ED: Denies rhinorrhea or sore throat Cardiovascular Cardiovascular: Reports orthopnea and racing heartbeat; Denies chest pain Respiratory/Chest Respiratory/Chest: Reports dyspnea on exertion and orthopnea; Denies cough Gastrointestinal Gastrointestinal: Denies abdominal pain, diarrhea, hematochezia, melena, nausea or vomiting Genitourinary Genitourinary ED: Reports urinary frequency; Denies dysuria or hematuria Musculoskeletal Musculoskeletal: Denies back pain or neck pain Integumentary Denies abscess or rash Neurologic Neurologic: Denies headache(s), paresthesias or weakness Psychiatric Psychiatric: Denies anxiety or suicidal thoughts EXAM Physical Exam Const Vital Signs: 03/27/24 16:39 03/27/24 17:38 03/27/24 19:20 Temperature 96.3 F L Temperature Source Temporal Pulse Rate 102 H 87 Respiratory Rate 16 18 Respiratory Pattern Normal Blood Pressure 134/78 H 122/72 H Blood Pressure Mean 96 88 Pulse Ox 97 97 Oxygen Delivery Method Room Air Room Air Positive well nourished and well developed General Appearance ED: well developed and NAD HEENT Reports moist mucous membranes normocephalic and atraumatic Eyes PERRL and EOMs intact bilaterally Neck full ROM and supple Resp normal respiratory effort and clear to auscultation bilaterally Cardio regular rate, regular rhythm and no murmurs GI non-tender and non-distended Auscultation: normoactive bowel sounds Palpation: soft Back/Spine no CVA tenderness General Back: other FROM Extremity normal to inspection General Extremety ED: Yes edema; Negative for pulses abnormal or tenderness General Extremity: edema bilateral lower extremity Details: trace; Negative for pulses abnormal Neuro oriented x3, CN's II-XII intact bilaterally and no sensory deficits noted Sensorium / Orientation: awake and alert Motor Exam: strength 5/5 throughout Psych mental status grossly normal Skin no rashes or lesions noted and no wounds MDM MDM MDM Narrative Medical decision making narrative: Patient potassium is normal today at 3.8. Renal function is good and similar. Given the episode she had this morning which may or may not have been an episode of A-fib I did an EKG, chest x-ray, troponin, BNP. On my interpretation two- view chest x-ray is normal, the labs are normal arguing against acute decompensated congestive heart failure, and her EKG is completely normal with a sinus rhythm at 69. For these reasons since the patient is feeling tired/weak and we do not have an obvious explanation I am adding on urinalysis. This was done, and is consistent with infection/bacteriuria. Patient is allergic to Macrobid so we will start her on cephalexin and send a culture. Advised to eat yogurt or take a probiotic to prevent antibiotic associated diarrhea. I offered admission, but she declines and states she is feeling well enough to get around at home. Lab Data Attestation: I reviewed the patient's lab results. Labs: Laboratory Results - last 24 hr 03/27/24 03/27/24 03/27/24 17:44 17:51 20:03 WBC 9.7 RBC 4.54 Hgb 13.5 Hct 40.5 MCV 89.2 MCH 29.7 MCHC 33.3 RDW Std Deviation 45.2 H RDW Coeff of Basilio 13.8 Plt Count 298 MPV 10.4 Immature Gran % (Auto) 0.400 Neut % (Auto) 67.0 Lymph % (Auto) 20.2 [place] % (Auto) 9.1 Eos % (Auto) 2.5 Baso % (Auto) 0.8 Absolute Neuts (auto) 6.5 Absolute Lymphs (auto) 1.95 Nucleated RBC % 0 Sodium 139 Potassium 3.8 Chloride 104 Carbon Dioxide 29.0 Anion Gap 6 BUN 16 Creatinine 0.73 Est GFR (MDRD) Af Amer 99 Est GFR (MDRD) Non-Af 82 BUN/Creatinine Ratio 22.0 H Glucose 164 H Calcium 10.0 Total Bilirubin 0.70 AST 20 ALT 34 Alkaline Phosphatase 241 H Troponin I High Sens 6 B-Natriuretic Peptide 25.1 Total Protein 7.3 Albumin 3.6 Globulin 3.7 Albumin/Globulin Ratio 1.0 Urine Color Yellow Urine Clarity Sl. Cloudy Urine pH 6.0 Ur Specific [place] 1.015 Urine Protein Negative Urine Glucose (UA) Normal Urine Ketones Negative Urine Occult Blood Negative Urine Nitrite Negative Urine Bilirubin Negative Urine Urobilinogen Normal Ur Leukocyte Esterase 500 H Urine RBC 0 SEEN Urine WBC 10-25 SEEN Ur Squamous Epith Cells 0-5 SEEN Urine Bacteria 3+ Hyaline Casts 5-10 SEEN Urine Mucus 0 SEEN Radiography Diagnostic Testing: Clinical Impression(s) from Imaging Studies Chest X-Ray 03/27/24 18:20 IMPRESSION: No acute cardiopulmonary pathology Electronically Signed: Yang Lopez MD at 19:46 EST Reading Location ID and State: [facility] / [place] Tel , Service support , Rhythm Strip Rhythm Strip: Sinus Rhythm Rate: 69 Ectopy: None EKG Initial EKG: Attestation: I personally reviewed and interpreted this EKG as follows: Interpretation: Sinus Rhythm and No Acute Injury Pattern Comments: Nml axis & intervals; nml EKG Discharge Plan Triage Chief Complaint: Abn Labs ED Provider: Adelso Tabor Dx/Rx/DC Orders Clinical Impression: Acute UTI, Generalized weakness Instructions: Urinary Tract Infections in Women Prescriptions: New cephalexin 500 mg capsule 500 mg PO Q6 Qty: 20 0RF No Action furosemide 20 mg tablet 40 mg PO BID Patient Comments: pt reports she has only taken once a day due to excessive urination at night acetaminophen 325 mg Tablet 650 mg PO Q6H PRN PRN (Reason: pain 1-10/fever/headache) Qty: 0 0RF ipratropium-albuterol 0.5 mg-3 mg(2.5 mg base)/3 mL Solution For Nebulization 3 ml inhalation Q4H.RT PRN (Reason: Shortness Of Breath) Qty: 0 0RF atorvastatin 10 mg Tablet 10 mg PO QHS Qty: 0 0RF sennosides-docusate sodium [Stimulant Laxative Plus] 8.6-50 mg Tablet 2 tab PO BID PRN PRN (Reason: Constipation) Qty: 0 0RF melatonin 3 mg Tablet 3 mg PO QHS PRN PRN (Reason: Insomnia) Qty: 0 0RF levothyroxine 100 mcg Tablet 100 mcg PO 0600 Qty: 0 0RF pantoprazole 40 mg Tablet,Delayed Release (Dr/Ec) 40 mg PO BID Qty: 0 0RF insulin lispro [Humalog KwikPen Insulin] 100 unit/mL Insulin Pen See Protocol subcut ACHS Qty: 0 0RF Protocol: 2. Sliding Scale Insulin Low-Med Dosing Condition: 150-209 mg/dl = 1 unit Condition: 210-269 mg/dl = 2 units Condition: 270-329 mg/dl = 3 units Condition: 330-389 mg/dl = 4 units Condition: 390-449 mg/dl = 5 units Condition: Greater than 449 call physician Protocol Text: Suggested for: - Patients on Total Daily Insulin Dose of 28-36 units - Average body habitus patients LOW MEDIUM DOSING ALGORITHM potassium chloride 10 mEq tablet extended release 10 meq PO BID insulin glargine-yfgn 100 unit/mL (3 mL) Insulin Pen 40 unit subcut QAM Eliquis 5 mg tablet 5 mg PO BID Qty: 60 12RF tramadol 50 mg tablet 50 mg PO Q6H PRN (Reason: pain) Qty: 20 0RF Primary Care Provider: Gael Garza Referrals: Gael Garza DO [Primary Care Provider] - 3-5 Days if not improving Print Language: Costa Rican Disposition Disposition: Home, Self Care
[2024-03-27 18:20] LABS: AST(SGOT) 20 U/L (15-37); Alanine Aminotransfer ALT/SGPT 34 U/L (13-56); Albumin, Serum 3.6 g/dL (3.2-5.0); Alkaline Phosphatase 241 U/L (45-117); Anion Gap 6 (5-15); BUN 16 mg/dL (7-18); Chloride 104 mmol/L (98-107); Creatinine, Serum 0.73 mg/dL (0.55-1.02); EST Glomerular Filtration Rate 82 mL/min (>60); Est Glom Filt Rate - Afr Amer 99 mL/min (>60); Globulin 3.7 g/dL (2.2-4.2); Glucose 164 mg/dL (74-106); Potassium 3.8 mmol/L (3.5-5.1); Protein, Total 7.3 g/dL (6.4-8.2); Sodium Level 139 mmol/L (136-145)
--- NOTE | 2024-03-27 18:20 | RAD_ITS ---
STUDY: X-RAY CHEST REASON FOR EXAM: Female, 79 years old. dyspnea TECHNIQUE: PA and lateral COMPARISON: December 26, 2023 FINDINGS: The lungs are clear and expanded. There is no demonstrated pleural abnormality. Normal size heart. Normal mediastinum and roderick. Normal visualized pulmonary arteries. Mildly calcified aortic arch and descending thoracic aorta. Dorsal spine demonstrates mild degenerative change. Normal visualized ribs, clavicles, and shoulders. There is no demonstrated abnormality of the visualized soft tissue structures of the upper abdomen. RAD/Chest PA and Lateral IMPRESSION: No acute cardiopulmonary pathology Electronically Signed: Yang Lopez MD at 19:46 EST ,
[2024-03-27 18:45] LABS: BNP,B-Type NATRIURETIC PEPTIDE 25.1 pg/mL (0-100)
[2024-03-27 18:50] LABS: Troponin-I HS 6 pg/mL (3.0-54.0)
[2024-03-27 19:20] VITALS: BP 122/72; PULSE 87; RESP 18; O2SAT 97; BMI 32.0
[2024-03-27 20:10] LABS: Mucous, Urine 0 SEEN /hpf (<or=2+); Red Blood Cells-Urine 0 SEEN /hpf (0-5)
[2024-03-27 20:11] LABS: Color, Urine Yellow (Yellow); Glucose, Dipstick Normal (Normal); Ketone-Dipstick Negative (Negative); Leukocyte Esterase-Dipstick 500 /ul (Negative); Nitrite-Dipstick Negative (Negative); Occult Blood-Urine Negative /ul (Negative); Protein-Dipstick Negative (Negative); Specific Gravity, Urine 1.015 (1.002-1.030); Urine Bilirubin Dipstick Negative (Negative); Urine Clarity Sl. Cloudy (Clear); Urine Urobilinogen Normal (Normal)
[2024-03-27 20:30] LABS: Bacteria 3+ /hpf (None Seen); Hyaline Cast 5-10 SEEN /lpf (0-5); Squamous Epithelial Cells - UA 0-5 SEEN /hpf (5-10); White Blood Cells 10-25 SEEN /hpf (0-5)
[2024-03-27 20:51] VITALS: BP 99/70; PULSE 83; RESP 16; TEMP 36.4; O2SAT 99
[2024-03-27] MEDS: Cephalexin 250 MG Capsule 500 MG PO (20:55)
== END 2024-03-27 20:57 | disposition home or self-care (01) ==
PROVIDERS: Emergency Provider Emergency Medicine; PCP Family Medicine; Visit Provider Emergency Medicine
DX: N39.0 Urinary tract infection, site not specified (principal); G20.A1 Parkinson's disease without dyskinesia, without mention of fluctuations; I11.0 Hypertensive heart disease with heart failure; I50.9 Heart failure, unspecified; J44.9 Chronic obstructive pulmonary disease, unspecified; I48.91 Unspecified atrial fibrillation; E11.9 Type 2 diabetes mellitus without complications; Z79.4 Long term (current) use of insulin; Z79.01 Long term (current) use of anticoagulants; E78.5 Hyperlipidemia, unspecified; R53.1 Weakness; Z90.49 Acquired absence of other specified parts of digestive tract; Z98.1 Arthrodesis status; Z86.711 Personal history of pulmonary embolism; E03.9 Hypothyroidism, unspecified; Z86.718 Personal history of other venous thrombosis and embolism; G47.33 Obstructive sleep apnea (adult) (pediatric); K21.9 Gastro-esophageal reflux disease without esophagitis
CPT/HCPCS: 71046; 80053; 81001; 83880; 84484; 85025; 87077; 87086; 87088; 87186; 93005; 99284; A4216

== ENCOUNTER → 2024-04-11 | Outpatient (CLI) | payer MEDICARE, MEDICAID, SELFPAY | END | disposition home or self-care (01) | LOC: PSN 09:25 | PROVIDERS: PCP Family Medicine; Referring Provider Family Medicine; Visit Provider Family Medicine | DX: R00.0 Tachycardia, unspecified (principal) | CPT/HCPCS: 93225; 93226 ==

== ENCOUNTER 2024-04-15 14:55 | Emergency (ER) | payer MEDICARE, MEDICAID, SELFPAY ==
[2024-04-15 14:57] VITALS: BP 125/80; PULSE 106; RESP 18; TEMP 36.2; O2SAT 98
[2024-04-15 19:00] VITALS: BP 124/70; PULSE 94; RESP 16; O2SAT 97
--- NOTE | 2024-04-15 19:13 | EDS_ITS ---
HPI HPI - GI History of Present Illness Chief Complaint: Constipation Detail of Chief Complaint: Fecal impaction Informant: patient Abdominal Pain/Flank Pain Onset: Days (Has not had a bowel movement in 2 days) Context: Sudden Onset Timing: Continuous Quality: - (Pressure in rectum) Current Severity: Mild Maximum Severity: Moderate Worsened by: Nothing Relieved by: Nothing Nausea/Vomiting/Emesis GI Symptom: Negative for Nausea or Vomiting Diarrhea/Melena/Hematochezia GI Symptom: Negative for Diarrhea, Melena or Hematochezia Associated Symptoms Associated Symptoms: Negative for Dysuria, Frequency, Hematuria or Urgency LMP: Postmenopausal Narrative Narrative: Patient is an 79-year-old woman. She presents because she is not able have a bowel movement past 2 days. She denies nausea vomiting. She states the stool is stuck in her rectum. She not had a bowel movement in 2 days. She is fluctuating. She had a Belkys's procedure performed at [facility] beginning of February. She denies abdominal pain or distention. She denies urologic symptoms. She was admitted a couple of weeks ago for kidney infection. Prior similar symptoms: Yes Recent Illness/Hospitalization: Yes [facility] Medical History Preop cardiovascular exam Anticoagulant long-term use Acute prerenal azotemia Acute dehydration Syncope due to orthostatic hypotension Acute upper GI bleed JHOYN (obstructive sleep apnea) Obesity (BMI 30-39.9) Back pain History of venous thromboembolism Left-sided chest wall pain Venous insufficiency Hiatal hernia Esophageal spasm Edema JHONY (obstructive sleep apnea) History of basal cell carcinoma (BCC) History of DVT (deep vein thrombosis) Seizure disorder Osteoarthritis Essential hypertension GERD (gastroesophageal reflux disease) Parkinsons disease Lung disease Kidney disease Hypothyroidism Sleep apnea IBS (irritable bowel syndrome) Depression Asthma Obesity (BMI 30.0-34.9) Lumbar back pain Premature atrial contractions COPD (chronic obstructive pulmonary disease) Hyperlipidemia Diabetes mellitus type II, controlled History of pulmonary embolism Symptomatic bradycardia Home Medications ?Medication ?Instructions ?Recorded ?Last Taken ?Type apixaban 5 mg tablet (Eliquis) 5 mg PO BID blood thinner #60 tabs 08/03/23 11/26/23 Rx acetaminophen 325 mg tablet 650 mg (2 x 325 mg) PO Q6H PRN PRN 12/27/23 Unknown Rx pain 1-10/fever/headache #0 tabs atorvastatin 10 mg tablet 10 mg PO QHS #0 tabs 12/27/23 Unknown Rx insulin lispro 100 unit/mL See Protocol subcut ACHS #0 mL 12/27/23 Unknown Rx subcutaneous pen (Humalog KwikPen (U-100) Insulin) ipratropium 0.5 mg-albuterol 3 mg 3 ml inhalation Q4H.RT PRN 12/27/23 Unknown Rx (2.5 mg base)/3 mL nebulization Shortness Of Breath #0 mL soln levothyroxine 100 mcg tablet 100 mcg PO 0600 #0 tabs 12/27/23 Unknown Rx melatonin 3 mg tablet 3 mg PO QHS PRN PRN Insomnia #0 12/27/23 Unknown Rx tabs pantoprazole 40 mg tablet,delayed 40 mg PO BID #0 tabs 12/27/23 Unknown Rx release sennosides 8.6 mg-docusate sodium 2 tab PO BID PRN PRN Constipation 12/27/23 Unknown Rx 50 mg tablet (Stimulant Laxative #0 tabs Plus) furosemide 20 mg tablet 40 mg PO BID 03/07/24 Unknown History tramadol 50 mg tablet 50 mg PO Q6H PRN pain #20 tabs 03/22/24 Unknown Rx cephalexin 500 mg capsule 500 mg PO Q6 #20 CAPSULES 03/27/24 Unknown Rx insulin glargine-yfgn 100 unit/mL 40 unit subcut QAM 03/27/24 Unknown History (3 mL) subcutaneous pen potassium chloride 10 mEq 10 meq PO BID 03/27/24 Unknown History tablet,extended release Allergy/AdvReac Type Severity Reaction Status Date / Time nitrofurantoin Allergy Hives Verified 04/15/24 14:57 macrocrystalline (From Macrodantin) tree and shrub pollen Allergy Hives Verified 04/15/24 14:57 rosuvastatin (From Crestor) AdvReac Severe Muscle Verified 04/15/24 14:57 weakness colesevelam (From WelChol) AdvReac Intermediate nausea Verified 04/15/24 14:57 nitrofurantoin (From AdvReac Intermediate Hives Verified 04/15/24 14:57 Furadantin) metformin AdvReac Unknown Gi side Verified 04/15/24 14:57 effects Family History Father CAD (coronary artery disease) Diabetes Myocardial infarction Alzheimers disease Hypertension Parkinson's disease Cancer melanoma History of blood clots Mother Diabetes AAA (abdominal aortic aneurysm) Bleeding disorder Colon cancer Thyroid disorder Brother Multiple sclerosis Skin cancer Surgical History History of tonsillectomy and adenoidectomy Hx of lumbar discectomy History of right hip replacement (~07/08/15) History of lumbar fusion (~2012) History of Belkys fundoplication Hx of hernia repair History of cholecystectomy Social History household members: spouse and none Smoking Status: Never smoker alcohol intake: never substance use type: does not use diet: diabetic and gluten free caffeine: No what type of physical activity do you participate in: none seatbelt use: always do you feel safe at home: Yes ROS ROS ED Constitutional Constitutional ED: Reports chills; Denies fever(s), subjective or sweats Cardiovascular Cardiovascular: Denies chest pain Respiratory/Chest Respiratory/Chest: Denies cough or dyspnea Gastrointestinal Gastrointestinal: Reports constipation; Denies abdominal pain, melena, nausea or vomiting Genitourinary Genitourinary ED: Denies dysuria, hematuria or urinary frequency EXAM Physical Exam Const Vital Signs: 04/15/24 14:57 04/15/24 19:00 Temperature 97.1 F L Temperature Source Temporal Pulse Rate 106 H 94 Respiratory Rate 18 16 Blood Pressure 125/80 H 124/70 H Blood Pressure Mean 95 88 Pulse Ox 98 97 Oxygen Delivery Method Room Air Room Air Positive well nourished and well developed General Appearance ED: well developed HEENT Reports moist mucous membranes normocephalic and atraumatic Eyes PERRL and EOMs intact bilaterally Resp normal respiratory effort Cardio regular rate and regular rhythm GI non-tender, non-distended and no masses GI Narrative: Patient has evidence of prior hemorrhoids. There is no fissure or fistula noted. Patient is impacted. Patient was digitally disimpacted by me. Patient tolerated the procedure. Palpation: soft Back/Spine no CVA tenderness Extremity full ROM General Extremety ED: Negative for edema General Extremity: Negative for edema Neuro CN's II-XII intact bilaterally and moves all extremities Sensorium / Orientation: alert Psych mental status grossly normal Skin Skin Narrative: Port sites for distance procedure are intact and healing without evidence of infection MDM MDM MDM Narrative Medical decision making narrative: Nurse has been asked to move patient from romero bed to 8 rooms in order for me to perform rectal exam and this impaction. Procedures Other Procedures Procedure(s): Digital disimpaction by physician Discharge Plan Triage Chief Complaint: Constipation ED Provider: Baljeet Fang Dx/Rx/DC Orders Clinical Impression: Fecal impaction in rectum, Obesity (BMI 30.0-34.9), Constipation due to opioid therapy Instructions: ED Fecal Impaction, Treated Prescriptions: No Action furosemide 20 mg tablet 40 mg PO BID Patient Comments: pt reports she has only taken once a day due to excessive urination at night acetaminophen 325 mg Tablet 650 mg PO Q6H PRN PRN (Reason: pain 1-10/fever/headache) Qty: 0 0RF ipratropium-albuterol 0.5 mg-3 mg(2.5 mg base)/3 mL Solution For Nebulization 3 ml inhalation Q4H.RT PRN (Reason: Shortness Of Breath) Qty: 0 0RF atorvastatin 10 mg Tablet 10 mg PO QHS Qty: 0 0RF sennosides-docusate sodium [Stimulant Laxative Plus] 8.6-50 mg Tablet 2 tab PO BID PRN PRN (Reason: Constipation) Qty: 0 0RF melatonin 3 mg Tablet 3 mg PO QHS PRN PRN (Reason: Insomnia) Qty: 0 0RF levothyroxine 100 mcg Tablet 100 mcg PO 0600 Qty: 0 0RF pantoprazole 40 mg Tablet,Delayed Release (Dr/Ec) 40 mg PO BID Qty: 0 0RF insulin lispro [Humalog KwikPen Insulin] 100 unit/mL Insulin Pen See Protocol subcut ACHS Qty: 0 0RF Protocol: 2. Sliding Scale Insulin Low-Med Dosing Condition: 150-209 mg/dl = 1 unit Condition: 210-269 mg/dl = 2 units Condition: 270-329 mg/dl = 3 units Condition: 330-389 mg/dl = 4 units Condition: 390-449 mg/dl = 5 units Condition: Greater than 449 call physician Protocol Text: Suggested for: - Patients on Total Daily Insulin Dose of 28-36 units - Average body habitus patients LOW MEDIUM DOSING ALGORITHM potassium chloride 10 mEq tablet extended release 10 meq PO BID insulin glargine-yfgn 100 unit/mL (3 mL) Insulin Pen 40 unit subcut QAM cephalexin 500 mg capsule 500 mg PO Q6 Qty: 20 0RF Eliquis 5 mg tablet 5 mg PO BID Qty: 60 12RF tramadol 50 mg tablet 50 mg PO Q6H PRN (Reason: pain) Qty: 20 0RF Patient Comments: HAS NOT USED FOR 3-4 DAYS Primary Care Provider: Gael Garza Referrals: Gael Garza, DO [Primary Care Provider] - 3-5 Days if not improving Activity Restrictions/Additional Instructions: 1. If you are still taking pain medicine Metamucil or MiraLAX 3 times a day for 1 week. 2. If you are no longer taking pain medicine Metamucil or MiraLAX 3 times a day for 1 day then 2 times a day for 2 days then once a day for 1 week Print Language: Samoan Disposition Disposition: Home, Self Care
[2024-04-15 20:06] VITALS: BP 106/60; PULSE 73; RESP 16; TEMP 36.6; O2SAT 98
== END 2024-04-15 20:13 | disposition home or self-care (01) ==
PROVIDERS: Emergency Provider Emergency Medicine; PCP Family Medicine; Visit Provider Emergency Medicine
DX: K56.41 Fecal impaction (principal); J44.9 Chronic obstructive pulmonary disease, unspecified; E11.9 Type 2 diabetes mellitus without complications; E66.9 Obesity, unspecified; Z78.0 Asymptomatic menopausal state; I10 Essential (primary) hypertension; E78.5 Hyperlipidemia, unspecified; Z86.718 Personal history of other venous thrombosis and embolism; Z86.711 Personal history of pulmonary embolism; Z98.1 Arthrodesis status; Z90.49 Acquired absence of other specified parts of digestive tract; Z68.34 Body mass index [BMI] 34.0-34.9, adult
CPT/HCPCS: 99284

== ENCOUNTER 2024-05-08 12:57 | Emergency (ER) | payer MEDICARE, MEDICAID, SELFPAY ==
[2024-05-08 13:00] VITALS: BP 151/76; PULSE 81; RESP 20; TEMP 36.3; O2SAT 100
[2024-05-08 13:18] LABS: Bedside Glucose 128 mg/dL (74-106)
--- NOTE | 2024-05-08 14:31 | EKG12_ITS ---
Test Reason : Blood Pressure : */* mmHG Vent. Rate : 62 BPM Atrial Rate : 62 BPM P-R Int : 236 ms QRS Dur : 96 ms QT Int : 410 ms P-R-T Axes : 16 -5 29 degrees QTcB Int : 416 ms Sinus rhythm with 1st degree A-V block Otherwise normal ECG Confirmed by LINA VILLA, ANDREI ([id number]), scientific publications editor JED KNOTT ([id number]) on 05/14/2024 7:07:40 AM Referred By: Confirmed By: ANDREI MILLS MD
--- NOTE | 2024-05-08 14:34 | EDS_ITS ---
HPI History of Present Illness Chief Complaint: Hypoglycemia Informant: patient and spouse/S.O. Narrative Narrative: Patient is an 79-year-old female with history of insulin-dependent diabetes mellitus, hypothyroidism, hyperlipidemia, tremor (she states they are wondering if she has Parkinson's) presenting for episode of mental status change, weakness and low blood sugar. States she has been feeling great the past few days and states that she had a lot of pain yesterday but attributes that. Spending a lot of time at her office desk doing work. Desk doing work. This morning she ate breakfast sausage trisha, toast and tea later she started feel dizzy and felt her vision was getting blurred. Home health nurse checked her vital signs that were stable. She does not like she was going to pass out no she felt very tired which is unusual since she slept for 10 hours the night before. Her checked her blood sugar and it was 15. She ate an orange and then bowl of chocolate chips and went up to 92. She states she still feels dizzy and tired but does not feel as confused anymore. States her vision does not feel as blurry anymore. She notes the past 2 weeks she has had a little bit of a nonproductive cough and runny nose and did feel short of breath during the episode this morning. She denies any chest pain but has been having some ongoing left rib pain from surgery for hiatal hernia that she had February. She denies any urinary symptoms but does report that she had a UTI last month. States her bowel movements have been good and she is been taking a stool softener to keep her regular. She denies any recent medication changes or weight changes. She took her normal long-acting 40 units of insulin this morning. No other complaints or concerns reported at this time. [facility] Medical History Preop cardiovascular exam Anticoagulant long-term use Acute prerenal azotemia Acute dehydration Syncope due to orthostatic hypotension Acute upper GI bleed JHONY (obstructive sleep apnea) Obesity (BMI 30-39.9) Back pain History of venous thromboembolism Left-sided chest wall pain Venous insufficiency Hiatal hernia Esophageal spasm Edema JHONY (obstructive sleep apnea) History of basal cell carcinoma (BCC) History of DVT (deep vein thrombosis) Seizure disorder Osteoarthritis Essential hypertension GERD (gastroesophageal reflux disease) Parkinsons disease Lung disease Kidney disease Hypothyroidism Sleep apnea IBS (irritable bowel syndrome) Depression Asthma Obesity (BMI 30.0-34.9) Lumbar back pain Premature atrial contractions COPD (chronic obstructive pulmonary disease) Hyperlipidemia Diabetes mellitus type II, controlled History of pulmonary embolism Symptomatic bradycardia Home Medications ?Medication ?Instructions ?Recorded ?Last Taken ?Type apixaban 5 mg tablet (Eliquis) 5 mg PO BID blood thinner #60 tabs 08/03/23 11/26/23 Rx acetaminophen 325 mg tablet 650 mg (2 x 325 mg) PO Q6H PRN PRN 12/27/23 Unknown Rx pain 1-10/fever/headache #0 tabs atorvastatin 10 mg tablet 10 mg PO QHS #0 tabs 12/27/23 Unknown Rx insulin lispro 100 unit/mL See Protocol subcut ACHS #0 mL 12/27/23 Unknown Rx subcutaneous pen (Humalog KwikPen (U-100) Insulin) ipratropium 0.5 mg-albuterol 3 mg 3 ml inhalation Q4H.RT PRN 12/27/23 Unknown Rx (2.5 mg base)/3 mL nebulization Shortness Of Breath #0 mL soln levothyroxine 100 mcg tablet 100 mcg PO 0600 #0 tabs 12/27/23 Unknown Rx melatonin 3 mg tablet 3 mg PO QHS PRN PRN Insomnia #0 12/27/23 Unknown Rx tabs pantoprazole 40 mg tablet,delayed 40 mg PO BID #0 tabs 12/27/23 Unknown Rx release sennosides 8.6 mg-docusate sodium 2 tab PO BID PRN PRN Constipation 12/27/23 Unknown Rx 50 mg tablet (Stimulant Laxative #0 tabs Plus) furosemide 20 mg tablet 40 mg PO BID 03/07/24 Unknown History tramadol 50 mg tablet 50 mg PO Q6H PRN pain #20 tabs 03/22/24 Unknown Rx cephalexin 500 mg capsule 500 mg PO Q6 #20 CAPSULES 03/27/24 Unknown Rx insulin glargine-yfgn 100 unit/mL 40 unit subcut QAM 03/27/24 Unknown History (3 mL) subcutaneous pen potassium chloride 10 mEq 10 meq PO BID 03/27/24 Unknown History tablet,extended release levofloxacin 750 mg tablet 750 mg PO DAILY #6 tabs 05/08/24 Unknown Rx Allergy/AdvReac Type Severity Reaction Status Date / Time nitrofurantoin Allergy Hives Verified 04/15/24 14:57 macrocrystalline (From Macrodantin) tree and shrub pollen Allergy Hives Verified 04/15/24 14:57 rosuvastatin (From Crestor) AdvReac Severe Muscle Verified 04/15/24 14:57 weakness colesevelam (From WelChol) AdvReac Intermediate nausea Verified 04/15/24 14:57 nitrofurantoin (From AdvReac Intermediate Hives Verified 04/15/24 14:57 Furadantin) metformin AdvReac Unknown Gi side Verified 04/15/24 14:57 effects Family History Father CAD (coronary artery disease) Diabetes Myocardial infarction Alzheimers disease Hypertension Parkinson's disease Cancer melanoma History of blood clots Mother Diabetes AAA (abdominal aortic aneurysm) Bleeding disorder Colon cancer Thyroid disorder Brother Multiple sclerosis Skin cancer Surgical History History of tonsillectomy and adenoidectomy Hx of lumbar discectomy History of right hip replacement (~07/08/15) History of lumbar fusion (~2012) History of Belkys fundoplication Hx of hernia repair History of cholecystectomy Social History household members: spouse and none Smoking Status: Never smoker alcohol intake: never substance use type: does not use diet: diabetic and gluten free caffeine: No what type of physical activity do you participate in: none seatbelt use: always do you feel safe at home: Yes ROS ROS ED Constitutional Constitutional ED: Reports other Details: Fatigue, dizzy ; Denies chills or fever(s) ENT ENT ED: Reports rhinorrhea; Denies sore throat Cardiovascular Cardiovascular: Denies chest pain Respiratory/Chest Respiratory/Chest: Reports cough; Denies dyspnea or sputum Gastrointestinal Gastrointestinal: Denies abdominal pain, constipation, diarrhea, nausea or vomiting Genitourinary Genitourinary ED: Denies dysuria, hematuria or urinary frequency Musculoskeletal Musculoskeletal: Denies arthralgias or myalgias Integumentary Denies rash Neurologic Neurologic: Reports weakness; Denies headache(s) or paresthesias Psychiatric Psychiatric: Denies anxiety Hematologic/Lymphatic Hematologic/Lymphatic: Reports easy bleeding, easy bruising and other Details: On eliquis EXAM Physical Exam Const Vital Signs: 05/08/24 13:00 05/08/24 13:50 Temperature 97.4 F L Temperature Source Temporal Pulse Rate 81 Respiratory Rate 20 H Respiratory Effort Normal Non-Labored Respiratory Pattern Normal Blood Pressure 151/76 H Blood Pressure Mean 101 Pulse Ox 100 Oxygen Delivery Method Room Air Positive well nourished and well developed General Appearance ED: well developed and NAD HEENT Reports moist mucous membranes Eyes PERRL Neck supple Chest Wall inspection of chest normal and palpation of chest normal Resp normal respiratory effort and clear to auscultation bilaterally Cardio regular rate and regular rhythm GI normal to inspection, nondistended, normoactive bowel sounds and non-tender Auscultation: normoactive bowel sounds Palpation: soft; Negative for tender or guarding Extremity normal to inspection General Extremety ED: Negative for edema General Extremity: Negative for edema Neuro oriented x3, CN's II-XII intact bilaterally and no sensory deficits noted Sensorium / Orientation: alert Motor Exam: Negative for general weakness Psych mental status grossly normal Skin no rashes or lesions noted and no wounds MDM MDM MDM Narrative Medical decision making narrative: Patient evaluated for episode of symptomatic hypoglycemia that occurred this morning. She is an insulin-dependent diabetic and took her normal dose of 40 units this morning of long-acting. She is not on any oral diabetic medications. Blood sugar has since normalized the patient is eating and drinking however because she is feeling weak and dizzy she went to be evaluated. Workup looking for the cause of her hypoglycemia performed including signs of UTI, pneumonia, PRIYA, recurrent hypoglycemia, DKA or ACS. Patient's blood sugar is normal/mildly elevated in the ER. CBC largely normal with no leukocytosis or anemia. CMP shows a very mildly low potassium of 3.4 with normal kidney function and glucose of 226. Urinalysis is consistent with urinary tract infection with 500 leukocyte esterase, 25-50 white blood cells and 2+ bacteria. No significant contamination. Suspect she has a urinary tract infection that caused her hypoglycemia. Chart review shows the patient had a urine culture from 03/27 that grew Klebsiella pneumonia that was sensitive to cefepime, Rocephin, fluoroquinolones and Bactrim. Patient was started on Levaquin given first dose in the emergency room. Urine culture sent. Patient given return precautions. Instructed tomorrow to cut her insulin to 20 units instead of 40 units. Given close return precautions. Patient will be able emergency room. Is discharged home. Patient and spouse agreeable with this plan of care. Lab Data Attestation: I reviewed the patient's lab results. Labs: Laboratory Results - last 24 hr 05/08/24 05/08/24 05/08/24 12:59 13:49 15:06 WBC 9.8 RBC 4.33 Hgb 12.7 Hct 39.1 MCV 90.3 MCH 29.3 MCHC 32.5 RDW Std Deviation 48.7 H RDW Coeff of Basilio 14.6 Plt Count 242 MPV 11.0 Immature Gran % (Auto) 0.600 Neut % (Auto) 88.3 H Lymph % (Auto) 5.3 L [place] % (Auto) 5.2 Eos % (Auto) 0.2 Baso % (Auto) 0.4 Absolute Neuts (auto) 8.6 H Absolute Lymphs (auto) 0.52 L Nucleated RBC % 0 Sodium 137 Potassium 3.4 L Chloride 102 Carbon Dioxide 26.0 Anion Gap 9 BUN 15 Creatinine 0.78 Est GFR (MDRD) Af Amer 91 Est GFR (MDRD) Non-Af 75 BUN/Creatinine Ratio 19.2 Glucose 226 H Calcium 9.1 Total Bilirubin 0.60 AST 32 ALT 30 Alkaline Phosphatase 252 H Total Protein 7.3 Albumin 3.2 Globulin 4.1 Albumin/Globulin Ratio 0.8 L Urine Color Yellow Urine Clarity Sl. Cloudy Urine pH 6.0 Ur Specific [place] 1.020 Urine Protein 15 H Urine Glucose (UA) 100 H Urine Ketones Negative Urine Occult Blood 10 H Urine Nitrite Negative Urine Bilirubin Negative Urine Urobilinogen Normal Ur Leukocyte Esterase 500 H Urine RBC 0 SEEN Urine WBC 25-50 SEEN Ur Squamous Epith Cells 0-5 SEEN Urine Bacteria 2+ Urine Mucus 0 SEEN POC Glucose 128 H Radiography Diagnostic Testing: Clinical Impression(s) from Imaging Studies Chest X-Ray 05/08/24 14:50 IMPRESSION: No acute disease. Electronically Signed: Mark Belle MD at 15:39 EST , Rhythm Strip Rhythm Strip: Sinus Rhythm Rate: 62 Ectopy: None EKG Initial EKG: Attestation: I personally reviewed and interpreted this EKG as follows: Interpretation: Sinus Rhythm Comments: Normal sinus rhythm at a rate of 62 bpm Prescribing block parable 236 Normal axis Normal intervals Normal ST segments Prior EKG tracings: available for review Prior: Unchanged Discharge Plan Triage Chief Complaint: Hypoglycemia ED Provider: Betty Copeland Dx/Rx/DC Orders Clinical Impression: Acute UTI, Hypoglycemic reaction Instructions: Urinary Tract Infections in Women, ED Diabetic Insulin Reaction Prescriptions: New levofloxacin 750 mg tablet 750 mg PO DAILY Qty: 6 0RF No Action furosemide 20 mg tablet 40 mg PO BID Patient Comments: pt reports she has only taken once a day due to excessive urination at night acetaminophen 325 mg Tablet 650 mg PO Q6H PRN PRN (Reason: pain 1-10/fever/headache) Qty: 0 0RF ipratropium-albuterol 0.5 mg-3 mg(2.5 mg base)/3 mL Solution For Nebulization 3 ml inhalation Q4H.RT PRN (Reason: Shortness Of Breath) Qty: 0 0RF atorvastatin 10 mg Tablet 10 mg PO QHS Qty: 0 0RF sennosides-docusate sodium [Stimulant Laxative Plus] 8.6-50 mg Tablet 2 tab PO BID PRN PRN (Reason: Constipation) Qty: 0 0RF melatonin 3 mg Tablet 3 mg PO QHS PRN PRN (Reason: Insomnia) Qty: 0 0RF levothyroxine 100 mcg Tablet 100 mcg PO 0600 Qty: 0 0RF pantoprazole 40 mg Tablet,Delayed Release (Dr/Ec) 40 mg PO BID Qty: 0 0RF insulin lispro [Humalog KwikPen Insulin] 100 unit/mL Insulin Pen See Protocol subcut ACHS Qty: 0 0RF Protocol: 2. Sliding Scale Insulin Low-Med Dosing Condition: 150-209 mg/dl = 1 unit Condition: 210-269 mg/dl = 2 units Condition: 270-329 mg/dl = 3 units Condition: 330-389 mg/dl = 4 units Condition: 390-449 mg/dl = 5 units Condition: Greater than 449 call physician Protocol Text: Suggested for: - Patients on Total Daily Insulin Dose of 28-36 units - Average body habitus patients LOW MEDIUM DOSING ALGORITHM potassium chloride 10 mEq tablet extended release 10 meq PO BID insulin glargine-yfgn 100 unit/mL (3 mL) Insulin Pen 40 unit subcut QAM cephalexin 500 mg capsule 500 mg PO Q6 Qty: 20 0RF Eliquis 5 mg tablet 5 mg PO BID Qty: 60 12RF tramadol 50 mg tablet 50 mg PO Q6H PRN (Reason: pain) Qty: 20 0RF Patient Comments: HAS NOT USED FOR 3-4 DAYS Primary Care Provider: Gael Garza Referrals: Gael Garza, [Primary Care Provider] - Activity Restrictions/Additional Instructions: Your blood work was stable/normal in the emergency room. You do have a urinary tract infection which I suspect is what could have caused your hypoglycemic episode this morning. You been started on antibiotic for this. Will contact you if we need to switch the antibiotics based on your urine culture. Urine culture is generally take about 48 hours to result. Tomorrow please decrease your insulin to 20 units instead of 40 units. If you have further episodes of low blood sugar, further weakness or further concerns please do not hesitate to return the emergency room. Otherwise please follow-up with your primary care doctor. Print Language: [place] Disposition Disposition: Home, Self Care
[2024-05-08 14:49] LABS: Absolute Lymphocyte Count 0.52 X10^3/uL (0.83-4.51); Absolute Neutrophil Count 8.6 X10^3/uL (2.0-7.7); Basophil# 0.04 X10^3/uL; Basophil% 0.4 % (0-1); Eosinophil# 0.02 X10^3/uL; Eosinophils% 0.2 % (0-5); Hematocrit 39.1 % (37-47); Hemoglobin 12.7 g/dL (12.0-15.0); Lymphocyte # 0.52 X10^3/ul (0.83-4.51); Lymphocyte % 5.3 % (19-41); Mean Corp Hgb Conc 32.5 g/dL (32-36); Mean Corpuscular Hgb 29.3 pg (27.0-32.0); Mean Corpuscular Volume 90.3 fL (81-99); Monocyte# 0.51 X10^3/uL; Monocyte% 5.2 % (0-10); NRBC Flagged by Analyzer 0 % (0-5); Neutrophil % 88.3 % (47-70); POSITIVE DIFFERENTIAL YES; Platelet Count 242 K/mm3 (150-450); RBC Distribution Width CV 14.6 % (11.6-14.6); RBC Distribution Width SD 48.7 fl (35.1-43.9); Red Blood Count 4.33 M/mm3 (4.2-5.4); White Blood Count 9.8 K/mm3 (4.4-11.0)
--- NOTE | 2024-05-08 14:50 | RAD_ITS ---
EXAM: XR CHEST, 2 VIEWS CLINICAL INDICATION: cough TECHNIQUE: Frontal and lateral views of the chest. COMPARISON: March 27, 2024 FINDINGS: LUNGS AND PLEURAL SPACES: Unremarkable. No consolidation or edema. No pneumothorax. No effusion. HEART: Unremarkable. Cardiac silhouette not enlarged. MEDIASTINUM: Central airways and mediastinal contour are unremarkable. BONES/JOINTS: Degenerative changes of spine and acromioclavicular joints. Diffuse osteopenia. No acute fracture. SOFT TISSUES: Unremarkable. VASCULATURE: Atherosclerotic calcifications of the ectatic thoracic aortic arch. UPPER ABDOMEN: Elevated right hemidiaphragm. RAD/Chest PA and Lateral IMPRESSION: No acute disease. Electronically Signed: Mark Belle MD at 15:39 EST ,
[2024-05-08 15:10] LABS: Mucous, Urine 0 SEEN /hpf (<or=2+); Red Blood Cells-Urine 0 SEEN /hpf (0-5)
[2024-05-08 15:24] LABS: Color, Urine Yellow (Yellow); Glucose, Dipstick 100 mg/dl (Normal); Ketone-Dipstick Negative (Negative); Leukocyte Esterase-Dipstick 500 /ul (Negative); Nitrite-Dipstick Negative (Negative); Occult Blood-Urine 10 /ul (Negative); Protein-Dipstick 15 mg/dl (Negative); Urine Bilirubin Dipstick Negative (Negative); Urine Clarity Sl. Cloudy (Clear); Urine Urobilinogen Normal (Normal)
[2024-05-08 15:34] LABS: White Blood Cells 25-50 SEEN /hpf (0-5)
[2024-05-08 15:35] LABS: Bacteria 2+ /hpf (None Seen); Squamous Epithelial Cells - UA 0-5 SEEN /hpf (5-10)
[2024-05-08 15:38] LABS: ALB/GLOB Ratio 0.8 RATIO (0.9-2.4); AST(SGOT) 32 U/L (15-37); Alanine Aminotransfer ALT/SGPT 30 U/L (13-56); Albumin, Serum 3.2 g/dL (3.2-5.0); Alkaline Phosphatase 252 U/L (45-117); Anion Gap 9 (5-15); BUN 15 mg/dL (7-18); BUN/Creat Ratio 19.2 RATIO (10-20); Calcium,Total 9.1 mg/dL (8.5-10.1); Chloride 102 mmol/L (98-107); Creatinine, Serum 0.78 mg/dL (0.55-1.02); EST Glomerular Filtration Rate 75 mL/min (>60); Est Glom Filt Rate - Afr Amer 91 mL/min (>60); Globulin 4.1 g/dL (2.2-4.2); Glucose 226 mg/dL (74-106); Potassium 3.4 mmol/L (3.5-5.1); Protein, Total 7.3 g/dL (6.4-8.2); Sodium Level 137 mmol/L (136-145)
[2024-05-08 16:00] LABS: Bedside Glucose 166 mg/dL (74-106)
[2024-05-08 16:07] VITALS: BP 131/61
[2024-05-08] MEDS: levoFLOXacin 750 MG Tablet PO (16:09)
== END 2024-05-08 16:10 | disposition home or self-care (01) ==
PROVIDERS: Emergency Provider Emergency Medicine; PCP Family Medicine; Visit Provider Emergency Medicine
DX: E11.649 Type 2 diabetes mellitus with hypoglycemia without coma (principal); J44.9 Chronic obstructive pulmonary disease, unspecified; Z79.4 Long term (current) use of insulin; N39.0 Urinary tract infection, site not specified; R07.81 Pleurodynia; I10 Essential (primary) hypertension; E78.5 Hyperlipidemia, unspecified; Z98.1 Arthrodesis status; Z90.49 Acquired absence of other specified parts of digestive tract; Z86.711 Personal history of pulmonary embolism; Z86.718 Personal history of other venous thrombosis and embolism; G47.33 Obstructive sleep apnea (adult) (pediatric); R05.9 Cough, unspecified; Z87.440 Personal history of urinary (tract) infections
CPT/HCPCS: 36415; 71046; 80053; 81001; 82962; 85025; 87077; 87086; 87088; 87186; 93005; 99283; A4216

== ENCOUNTER → 2024-06-05 | Outpatient (CLI) | payer MEDICARE, MEDICAID, SELFPAY | END | disposition home or self-care (01) | LOC: PSN 08:34 | PROVIDERS: PCP Family Medicine; Referring Provider Nurse Practitioner Family; Visit Provider Nurse Practitioner Family | DX: R00.0 Tachycardia, unspecified (principal) | CPT/HCPCS: 93225; 93226 ==

== ENCOUNTER → 2024-08-29 | Outpatient (CLI) | payer MEDICARE, SELFPAY ==
[2024-08-29 15:18] LABS: Erythrocyte Sedimentation Rate 19 mm/hr (0-30)
[2024-08-29 15:21] LABS: Absolute Neutrophil Count 3.2 X10^3/uL (2.0-7.7); Basophil# 0.05 X10^3/uL; Basophil% 0.9 % (0-1); Eosinophil# 0.19 X10^3/uL; Eosinophils% 3.4 % (0-5); Hematocrit 35.4 % (37-47); Hemoglobin 11.8 g/dL (12.0-15.0); Lymphocyte % 28.3 % (19-41); Mean Corp Hgb Conc 33.3 g/dL (32-36); Mean Corpuscular Hgb 30.8 pg (27.0-32.0); Mean Corpuscular Volume 92.4 fL (81-99); Mean Platelet Vol. 11.2 fl (6.2-12.0); Monocyte# 0.57 X10^3/uL; Monocyte% 10.1 % (0-10); NRBC Flagged by Analyzer 0 % (0-5); Neutrophil # 3.23 X10^3/uL (2.7-7.7); Neutrophil % 57.1 % (47-70); Platelet Count 225 K/mm3 (150-450); RBC Distribution Width CV 13.7 % (11.6-14.6); RBC Distribution Width SD 46.5 fl (35.1-43.9); Red Blood Count 3.83 M/mm3 (4.2-5.4); White Blood Count 5.7 K/mm3 (4.4-11.0)
[2024-08-29 15:33] LABS: Hemoglobin A1c 6.4 % (<=5.6)
[2024-08-29 15:48] LABS: ALB/GLOB Ratio 1.4 RATIO (0.9-2.4); AST(SGOT) 27 U/L (<=31); Alanine Aminotransfer ALT/SGPT 16 U/L (<=34); Alkaline Phosphatase 179 U/L (35-104); Anion Gap 11 (5-15); BUN 23 mg/dL (4-19); BUN/Creat Ratio 23.3 RATIO (10-20); Calcium,Total 9.6 mg/dL (7.6-11.0); Carbon Dioxide 27.9 mmol/L (21.0-32.0); Chloride 104 mmol/L (98-108); Cholesterol 164 mg/dL (<=200); Creatinine, Serum 0.98 mg/dL (0.70-1.20); EST Glomerular Filtration Rate 58 (>60); Globulin 2.8 g/dL (2.2-4.2); Glucose 106 mg/dL (70-99); High Density Lipoprotein 53 mg/dL; Low Density Lipoprotein Calc. 79 mg/dL; Potassium 4.4 mmol/L (3.3-5.1); Protein, Total 6.8 g/dL (5.9-8.4); Sodium Level 143 mmol/L (133-145); Total Bilirubin 0.38 mg/dL (0.00-1.30); Triglycerides 161 mg/dL; Very Low Density Lipoprotein 32 mg/dL (5-40); Vitamin B12 661 pg/mL (180-914); Vitamin D,25 Hydroxy 37.7 ng/mL (30-100); cholesterol:hdl ratio screen 3.11
[2024-08-29 15:50] LABS: CRP < 3.00 mg/L (0.0-3.0)
[2024-08-29 15:55] LABS: Microalbumin,Random Urine 23.5 mg/L (NO RANGE EST.); Microalbumin:Creatinine Ratio 564.9 mg/g CRE
== END | disposition home or self-care (01) ==
LOC: MTLAB 11:44
PROVIDERS: PCP Family Medicine; Referring Provider Family Medicine; Visit Provider Family Medicine
DX: E11.9 Type 2 diabetes mellitus without complications (principal); R53.83 Other fatigue; I10 Essential (primary) hypertension; E03.9 Hypothyroidism, unspecified; M85.80 Other specified disorders of bone density and structure, unspecified site; E53.8 Deficiency of other specified B group vitamins
CPT/HCPCS: 36415; 80053; 80061; 82043; 82306; 82570; 82607; 83036; 84443; 85025; 85652; 86140

== ENCOUNTER → 2024-10-15 | Outpatient (CLI) | payer MEDICARE, SELFPAY ==
--- NOTE | 2024-10-15 11:15 | RAD_ITS ---
PROCEDURE: HIP, UNI W/ PELVIS 2-3 VIEWS 10/15/2024 REASON FOR EXAM: RIGHT HIP PAIN HX REPLACEMENT TECHNIQUE: HIP, UNI W/ PELVIS 2-3 VIEWS COMPARISON: 12/17/2023 FINDINGS: Lower lumbar spine degeneration and prior surgery. Status post bilateral THR. Intact hardware. Anatomic alignment. Intact pelvic ring. No acute bone or soft tissue pathology. RAD/HIP, UNI W/ Pelvis 2-3 Views IMPRESSION: Unremarkable right hip appearance status post recent THR. Reading [facility]
--- NOTE | 2024-10-15 11:15 | RAD_ITS ---
PROCEDURE: HIP, UNI W/ PELVIS 2-3 VIEWS 10/15/2024 REASON FOR EXAM: RIGHT HIP PAIN HX REPLACEMENT TECHNIQUE: HIP, UNI W/ PELVIS 2-3 VIEWS COMPARISON: 12/17/2023 FINDINGS: Lower lumbar spine degeneration and prior surgery. Status post bilateral THR. Intact hardware. Anatomic alignment. Intact pelvic ring. No acute bone or soft tissue pathology. RAD/HIP, UNI W/ Pelvis 2-3 Views IMPRESSION: Unremarkable right hip appearance status post recent THR. Reading [facility]
== END | disposition home or self-care (01) ==
LOC: LAB 10:47 → RAD 10:49
PROVIDERS: PCP Family Medicine; Referring Provider Family Medicine; Visit Provider Family Medicine
DX: M25.551 Pain in right hip (principal); Z96.641 Presence of right artificial hip joint
CPT/HCPCS: 73502

== ENCOUNTER 2024-10-19 10:16 | Emergency (ER) | payer MEDICARE, SELFPAY ==
[2024-10-19 10:16] VITALS: BP 113/53; PULSE 69; RESP 14; TEMP 36.1; O2SAT 98
[2024-10-19 12:31] VITALS: BP 141/59; PULSE 60; RESP 18; TEMP 36.6; O2SAT 98
== END 2024-10-19 12:41 | disposition home or self-care (01) ==
LOC: ED 11:25
PROVIDERS: Emergency Provider Emergency Medicine; PCP Family Medicine; Visit Provider Emergency Medicine
DX: A60.09 Herpesviral infection of other urogenital tract (principal); J44.9 Chronic obstructive pulmonary disease, unspecified; E11.9 Type 2 diabetes mellitus without complications; Z79.4 Long term (current) use of insulin; Z86.718 Personal history of other venous thrombosis and embolism; E78.5 Hyperlipidemia, unspecified; Z86.711 Personal history of pulmonary embolism; I10 Essential (primary) hypertension; Z79.01 Long term (current) use of anticoagulants; Z79.899 Other long term (current) drug therapy; E03.9 Hypothyroidism, unspecified; Z79.890 Hormone replacement therapy; K21.9 Gastro-esophageal reflux disease without esophagitis; Z96.641 Presence of right artificial hip joint; Z90.49 Acquired absence of other specified parts of digestive tract; R33.9 Retention of urine, unspecified
CPT/HCPCS: 51702; 99283